=== PATIENT | male | born 1930 | race Caucasian/White ===

== ENCOUNTER 2017-07-19 23:22 | Emergency (ER) | payer OTHER ==
[~2017-07-19] VITALS: Ht 177.8 cm; Wt 87.3 kg
[~2017-07-19 23:22] MED LIST: ALLO100T PO; ASPI81TA82 PO; CAPT25TA2 PO; CHOL1CAP6 PO; COQ150CA PO; COUM5TAB PO; CYAN1000P IM; DIAZ2 PO; HYDR50TA5 PO; INSU1INJ5 SQ; IRON27TA PO; KONS520C PO; LORA10TA PO; LORTA5 PO; MAGN500T4 PO; MEVA40TA PO; PRIL40CA PO; PROBCAP4 PO; PROS5TAB2 PO; TOPR100T15 PO; VITA50TA3 PO
[2017-07-19 23:23] VITALS: BP 195/96; PULSE 90; RESP 16; TEMP 97.9; O2SAT 99
[2017-07-19 23:40] VITALS: BP 148/77; PULSE 83; RESP 16; O2SAT 98
--- NOTE | 2017-07-20 00:07 | PD ---
HPI Chief Complaint: Laceration/Skin Injury Time Seen by Provider: 23:43 Travel History International Travel<30 days: No Contact w/Intl Traveler<30days: No Traveled to known affect area: No History of Present Illness HPI The patient is an 87 year old male who presents to the [facility] emergency department with a history of hitting his head on the top of his head on the top of the door of his SUV when he was attempting to put packages in the back. He reports that this occurred on Friday at 4 PM, approximately 32 hours prior to arrival. The patient reports that he is on Coumadin. The patient also has a history of thrombocytopenia. The patient reports that he did clean the area and apply antibiotic ointment along with a bandage, however it continues to bleed through the bandages. The patient reports that he last had his INR checked 2 weeks ago. He reports that it was reportedly where his doctor wanted to be. He reports that he is on 4 mg of Coumadin daily. He reports that he is on Coumadin because of a history of atrial fibrillation. He denies having any loss of consciousness with the head injury. He denies having any neck pain, paresthesias, or weakness of his extremities. On review of systems otherwise, the patient denies having any known recent fevers, cough or congestion, chest pain, abdominal pain, vomiting, diarrhea, urinary symptoms, or neurologic symptoms. The patient reports that he does have chronic dyspnea on exertion related to a history of congestive heart failure and aortic stenosis that is reportedly severe and pending surgery in July of this year with a valve replacement. FOR[facility]LY [facility] Past Medical History Narrative Medical the patient's past medical history is significant for aortic valve stenosis, diabetes mellitus, acid reflux, history of hypertension, history of atrial fibrillation, congestive heart failure, history kidney stones, prior history of pneumonia, history of thrombocytopenia, history of prior myocardial infarction in 2011, history of skin cancer, history of a neuroendocrine tumor that is monitored by Dr. Simmons, history of thrombocytopenia with a platelet count that usually is around the 100. Hx Anticoagulant Therapy: Yes Anemia: Yes Cancer: No Cardiac Catheterization: Yes Cardiovascular Problems: Yes (CAD, [place]) High Cholesterol: Yes Coronary Artery Disease: Yes Diabetes: Yes Patient Takes Glucophage: No Diminished Hearing: No Endocrine: Yes Gastrointestinal Disorders: Yes (GERD) GERD: Yes Genitourinary: Yes (HX BPH) Hepatitis: No Hiatal Hernia: Yes Hypertension: Yes Immune Disorder: No Implanted Vascular Access Dvce: Yes Medical other: Yes (EDEMA ANKLES, ANEMIA) Musculoskeletal: No Neurologic: No Psychiatric: No Reproductive: No Respiratory: No Myocardial Infarction: Yes Thyroid Disease: No Influenza Vaccination: No Past Surgical History Narrative Surgical The patient's past surgical history is significant for cardiac catheterization with stent placement, cataract surgery, history of prostatectomy, skin cancer resection, cholecystectomy Abdominal Surgery: No Body Medical Devices: CARDIAC STENT Cardiac Surgery: No Coronary Stent: Yes (x1) Ear Surgery: No Endocrine Surgery: No Eye Surgery: Yes (CATARACTSWITH LENS) Genitourinary Surgery: Yes (PROSTATE SURGERY) Oral Surgery: Yes (TONSILLECTOMY) Prostatectomy: Yes Thoracic Surgery: No Tonsillectomy: Yes Other Surgery: Yes (NASAL POLYPS) Social History Alcohol Use: No Tobacco Use: No Substance Use: No Allergies-Medications (Allergen,Severity, Reaction): Coded Allergies: niacin (Unverified Allergy, Severe, ITCH, 07/19/17) sitagliptin (Unverified Adverse Reaction, Severe, STOMACH PAIN, 07/19/17) Reported Meds & Prescriptions Reported Meds & Active Scripts Active Reported Miralax Powder (Polyethylene Glycol 3350 Powder) 17 Gm Powd 17 Gm PO DAILY PRN Mix and dissolve one measuring cap-ful (17 grams) in water or juice. Niacin 100 Mg Tab Unknown Dose PO DAILY Januvia (Sitagliptin Phosphate) 25 Mg Tab Unknown Dose PO DAILY Claritin (Loratadine) 5 Mg Chew Unknown Dose CHEW DAILY Co Q 10 (Coenzyme Q10 (Ubidecarenone)) 100 Mg-5 Unit Cap 100 Mg PO DAILY Aspirin 81 Low Dose (Aspirin) 81 Mg Chew 81 Mg CHEW DAILY Vitamin B-12 (Cyanocobalamin) 1,000 Mcg Tab Unknown Dose PO TID Levemir Inj (Insulin Detemir) 1,000 unit/ 10 ML Vial 28 Units SQ DAILY Do not mix with any other Insulin. Potassium Chloride ER (Potassium Chloride) 20 Meq Tab 20 Meq PO DAILY Furosemide 40 Mg Tab 40 Mg PO DAILY Mag-Delay (Magnesium Chloride) 70 Mg Magnesium Tab 500 Mg PO BID Ferrous Gluconate 240 Mg (27 Mg Iron) Tab 240 Mg PO DAILY Captopril 25 Mg Tab 25 Mg PO DAILY Take 1 hr before meals. Toprol XL (Metoprolol Succinate) 50 Mg Tab 50 Mg PO DAILY Warfarin 4 Mg Tab 4 Mg PO DAILY Allopurinol 100 Mg Tab 100 Mg PO BID Review of Systems Except as stated in HPI: all other systems reviewed are Neg General / Constitutional: No: Fever Eyes: No: Visual changes HENT: No: Headaches, Neck Stiffness, Neck Pain Cardiovascular: No: Chest Pain or Discomfort Respiratory: No: Shortness of Breath Gastrointestinal: No: Abdominal Pain Genitourinary: No: Dysuria Musculoskeletal: No: Pain Skin: Positive Other (abrasion over the top of his head), No Rash Neurologic: Positive: Headache, No: Weakness, Focal Abnormalities, Change in Mentation, Slurred Speech, Sensory Disturbance Psychiatric: No: Depression Endocrine: No: Polydipsia Hematologic/Lymphatic: No: Easy Bruising Physical Exam Narrative General: The patient is a well-developed well-nourished male in no acute distress. Head and Neck exam: Head is normocephalic, with evidence of trauma to the top of the head. The patient has a bandage in place with some blood on the bandage. The patient has an abrasion over the top of the scalp. There is a small amount of oozing noted. Eyes: EOMI, pupils are equal round and reactive to light. Nose: Midline septum with pink mucous membranes Mouth: Dentition unremarkable. Moist mucus membranes. Posterior oropharynx is not erythematous. No tonsillar hypertrophy. Uvula midline. Airway patent. Neck: No palpable lymphadenopathy. No nuchal rigidity. No thyromegaly. No spinous process tenderness to palpation. No step-off or crepitus. No erythema or ecchymosis. Cardiovascular: Irregularly irregular with rate control consistent with his history of atrial fibrillation, 2/6 systolic murmur is audible consistent with his history of aortic stenosis. No gallops or rubs. No pulse deficit to the extremities. Lungs: Clear to auscultation bilaterally. No wheezes, rhonchi, or rales. Abdomen: Soft, without tenderness to palpation in all 4 quadrants of the abdomen. No guarding, rebound, or rigidity. Normal bowel sounds are audible. No tenderness on palpation of McBurney's point. Extremities: No clubbing or cyanosis. The patient has trace pedal edema bilateral lower extremities. No calf tenderness on palpation. 2+ pulses in all 4 extremities. Back: No spinous process tenderness to palpation. No costovertebral angle tenderness to palpation. Neurologic Exam: Grossly nonfocal. Skin Exam: No rash noted. Skin is warm and dry. Data Data Last Documented VS Vital Signs Date Time Temp Pulse Resp B/P (MAP) Pulse Ox O2 Delivery O2 Flow Rate FiO2 07/19/17 23:40 83 16 148/77 (100) 98 Room Air 07/19/17 23:23 97.9 Orders Orders Complete Blood Count With Diff (07/19/17 23:55) Basic Metabolic Panel (Bmp) (07/19/17 23:55) Prothrombin Time / Inr (Pt) (07/19/17 23:55) Act Partial Throm Time (Ptt) (07/19/17 23:55) Ct Brain W/O Iv Contrast(Rout) (07/19/17 23:55) Iv Access Insert/Monitor (07/19/17 23:55) Ecg Monitoring (07/19/17 23:55) Oximetry (07/19/17 23:55) Labs Laboratory Tests Test 07/19/17 23:59 White Blood Count 4.3 TH/MM3 Red Blood Count 3.73 MIL/MM3 Hemoglobin 11.3 GM/DL Hematocrit 34.4 % Mean Corpuscular Volume 92.1 FL Mean Corpuscular Hemoglobin 30.3 PG Mean Corpuscular Hemoglobin Concent 32.9 % Red Cell Distribution Width 15.9 % Platelet Count 95 TH/MM3 Mean Platelet Volume 10.0 FL Neutrophils (%) (Auto) 78.1 % Lymphocytes (%) (Auto) 8.5 % Monocytes (%) (Auto) 8.9 % Eosinophils (%) (Auto) 3.2 % Basophils (%) (Auto) 1.3 % Neutrophils # (Auto) 3.4 TH/MM3 Lymphocytes # (Auto) 0.4 TH/MM3 Monocytes # (Auto) 0.4 TH/MM3 Eosinophils # (Auto) 0.1 TH/MM3 Basophils # (Auto) 0.1 TH/MM3 CBC Comment AUTO DIFF Prothrombin Time 31.4 SEC Prothromb Time International Ratio 3.1 RATIO Activated Partial Thromboplast Time 42.3 SEC Blood Urea Nitrogen 28 MG/DL Creatinine 1.32 MG/DL Random Glucose 170 MG/DL Calcium Level 8.9 MG/DL Sodium Level 138 MEQ/L Potassium Level 3.3 MEQ/L Chloride Level 99 MEQ/L Carbon Dioxide Level 33.8 MEQ/L Anion Gap 5 MEQ/L Estimat Glomerular Filtration Rate 51 ML/MIN MDM Medical Decision Making Medical Screen Exam Complete: Yes Emergency Medical Condition: Yes Medical Record Reviewed: Yes Differential Diagnosis Intracranial trauma given his history of head injury while on Coumadin, versus supratherapeutic Coumadin level, versus thrombocytopenia Narrative Course During the course of the patients emergency department visit, the patients history, examination, and differential diagnosis were reviewed with the patient. The patient was placed on a cardiac/vascular sonographer with oximetry and frequent blood pressure monitoring. The patient had IV access obtained and blood work sent for analysis. A CT scan of the brain was ordered. The patient was initially provided wound care to his scalp wound. The patient' s wound was cleaned. Topical powder was applied to stop bleeding. The patient' s wound was repaired bandage. The bleeding was controlled. The patients laboratory studies were reviewed and remarkable for a white count of 4.3, hemoglobin 11.3, platelets 95, neutrophils 78.1, monocytes 8.9. CMP is remarkable for potassium of 3.3, CO2 33.8, BUN 28, creatinine 1.32, glucose 170 , PTT 31.4, INR 3.1, PTT 42.3. Radiology studies were reviewed and remarkable for a CT scan of the brain that shows no bleeding or other acute intracranial abnormality, however there is a complete heterogeneous opacification of the left maxillary air cell and extending into the nasal cavity of concern for a mass. The patient is given a copy of his labs and CT scan findings. The patient is instructed to keep his bandage in place for 24 hours and then gently removed. The patient is instructed regarding the importance of close follow-up with his guard driver and primary care physician. The patient is resting comfortably and feels better, is alert and in no distress. The patients results and examination findings were discussed with the patient. The repeat examination is unremarkable and benign. The history, exam, diagnostic testing, and current condition do not suggest any significant pathology to warrant further testing, continued ED treatment, admission, or surgical evaluation at this point. The vital signs have been stable. The patient does not have uncontrollable pain, intractable vomiting, or other significant symptoms. The patient's condition is stable and appropriate for discharge. The patient will pursue further outpatient evaluation with a primary care physician or other designated or consulting physician as indicated in the discharge instructions. The patient expressed understanding and was agreeable with this plan. Diagnosis Primary Impression: Scalp abrasion Qualified Codes: S00.01XA - Abrasion of scalp, initial encounter Additional Impression: Maxillary sinus mass Referrals: Oncologist Primary Care Physician 1 day Additional Instructions: The patient is given a copy of his CT scan of the brain results for follow-up with his primary care physician regarding the possible mass in his left maxillary sinus. The patient is also given a copy of his laboratory results to discuss with his primary care physician and guard driver regarding his platelet count of 95, INR of 3.1. Med/Other Pt SpecificInfo: No Change to Meds Disposition: 01 DISCHARGE HOME Condition: Stable Xin Calzada MD Jul 20, 2017 00:07
[2017-07-20 00:32] LABS: AUTOMATED NEUTROPHIL # 3.4 TH/MM3 (1.8-7.7); BASOPHIL # 0.1 TH/MM3 (0-0.2); BASOPHIL % 1.3 % (0.0-2.0); EOSINOPHIL # 0.1 TH/MM3 (0-0.4); EOSINOPHIL % 3.2 % (0.0-4.0); HEMATOCRIT 34.4 % (39.0-51.0); HEMOGLOBIN 11.3 GM/DL (13.0-17.0); LYMPH % 8.5 % (9.0-44.0); LYMPHOCYTE # 0.4 TH/MM3 (1.0-4.8); MEAN CELL VOLUME 92.1 FL (80.0-100.0); MEAN CORPUSCULAR HEMOGLOBIN 30.3 PG (27.0-34.0); MEAN CORPUSCULAR HGB CONC 32.9 % (32.0-36.0); MONO % 8.9 % (0.0-8.0); MONOCYTE # 0.4 TH/MM3 (0-0.9); NEUT % 78.1 % (16.0-70.0); PLATELET COUNT 95 TH/MM3 (150-450); RED BLOOD COUNT 3.73 MIL/MM3 (4.50-5.90); RED CELL DISTRIBUTION WIDTH 15.9 % (11.6-17.2); WHITE BLOOD COUNT 4.3 TH/MM3 (4.0-11.0)
--- NOTE | 2017-07-20 00:43 | RADRPT ---
EXAM DATE/TIME: 07/20/2017 00:22 [place] COMPARISON: No previous studies available for comparison. INDICATIONS : Trauma. Contusion with laceration top of head. RADIATION DOSE: 36.24 CTDIvol (mGy) MEDICAL HISTORY : Cardiovascular disease. Hypertension. Diabetes mellitus type 2.GERD SURGICAL HISTORY : Coronary artery stent. Prostatectomy. ENCOUNTER: Initial ACUITY: 1 day PAIN SCALE: 4/10 LOCATION: cranial TECHNIQUE: Multiple contiguous axial images were obtained of the head. Using automated exposure control and adj ustment of the mA and/or kV according to patient size, radiation dose was kept as low as reasonably a chievable to obtain optimal diagnostic quality images. DICOM format image data is available electro nically for review and comparison. FINDINGS: CEREBRUM: The ventricles are normal for age. No evidence of midline shift, mass lesion, hemorrhage or acute in farction. No extra-axial fluid collections are seen. POSTERIOR FOSSA: The cerebellum and brainstem are intact. The 4th ventricle is midline. The cerebellopontine angle i s unremarkable. EXTRACRANIAL: There is a mass like complete opacification of the left maxillary air cell extending through the medi al wall into the nasal cavity. Otherwise mild mucoperiosteal thickening and a few scattered mucus ret ention cysts are seen of the paranasal sinuses. SKULL: The calvaria is intact. No evidence of skull fracture. CONCLUSION: 1. No bleed or other acute intracranial abnormality. 2. There is complete heterogeneous opacification of the left maxillary air cell and extending into th e nasal cavity of concern for a mass. Pino Lin MD on July 20, 2017 at 0:39 Board Certified Radiologist. This report was verified electronically.
[2017-07-20 00:53] LABS: INTERNATIONAL NORMALIZED RATIO 3.1 RATIO; PROTHROMBIN TIME - PATIENT 31.4 SEC (9.8-11.6)
[2017-07-20] MEDS ORDERED: ALLO100T PO (00:59)
[2017-07-20] MEDS ORDERED: VITA10002 PO (00:59)
[2017-07-20] MEDS ORDERED: MAG-TAB PO (00:59)
[2017-07-20] MEDS ORDERED: WARF-20 PO (00:59)
[2017-07-20] MEDS ORDERED: SITA25 PO (00:59)
[2017-07-20] MEDS ORDERED: TOPR50TA PO (00:59)
[2017-07-20] MEDS ORDERED: MIRA3350 PO (00:59)
[2017-07-20] MEDS ORDERED: LORA1CHW2 CHEW (00:59)
[2017-07-20] MEDS ORDERED: LEVEMIR SQ (00:59)
[2017-07-20] MEDS ORDERED: FERR240T PO (00:59)
[2017-07-20] MEDS ORDERED: ASPI1CHW4 CHEW (00:59)
[2017-07-20] MEDS ORDERED: FURO40TA PO (00:59)
[2017-07-20] MEDS ORDERED: POTA-163 PO (00:59)
[2017-07-20] MEDS ORDERED: NIAC100T2 PO (00:59)
[2017-07-20] MEDS ORDERED: CO Q100C9 PO (00:59)
[2017-07-20] MEDS ORDERED: CAPT25TA2 PO (00:59)
[2017-07-20 01:06] LABS: BICARBONATE 33.8 MEQ/L (21.0-32.0); CALCIUM 8.9 MG/DL (8.5-10.1); CREATININE 1.32 MG/DL (0.60-1.30)
[2017-07-20 02:10] LABS: OVALOCYTES 1+ (NORMAL)
== END 2017-07-20 01:57 | disposition home or self-care (01) ==
LOC: NEPE 23:22
DX: S00.01XA Abrasion of scalp, initial encounter (principal); R22.0 Localized swelling, mass and lump, head; I48.91 Unspecified atrial fibrillation; E11.9 Type 2 diabetes mellitus without complications; E78.00 Pure hypercholesterolemia, unspecified; I25.10 Atherosclerotic heart disease of native coronary artery without angina pectoris; I11.0 Hypertensive heart disease with heart failure; I50.9 Heart failure, unspecified; Z79.01 Long term (current) use of 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; Z79.4 Long term (current) use of insulin; W22.8XXA Striking against or struck by other objects, initial encounter; Y93.89 Activity, other specified; Y92.818 Other transport vehicle as the place of occurrence of the external cause
CPT/HCPCS: 70450; 80048; 85025; 85610; 85730

== ENCOUNTER 2017-08-04 08:36 | Day surgery (SDC) | payer OTHER ==
[2017-08-04] VITALS (7 sets, daily range): BP systolic 131–164; BP diastolic 74–94; PULSE 78–94; RESP 16–20; TEMP 97.9–98.5; O2SAT 95–100
[~2017-08-04] VITALS: Ht 177.8 cm; Wt 85.6 kg
[~2017-08-04 08:36] MED LIST changes: +ASPI1CHW4 CHEW; -ASPI81TA82 PO; -CHOL1CAP6 PO; +CO Q100C9 PO; -COQ150CA PO; -COUM5TAB PO; -CYAN1000P IM; -DIAZ2 PO; +FERR240T PO; +FURO40TA PO; -HYDR50TA5 PO; -INSU1INJ5 SQ; -IRON27TA PO; -KONS520C PO; +LEVEMIR SQ; -LORA10TA PO; +LORA1CHW2 CHEW; -LORTA5 PO; +MAG-TAB PO; -MAGN500T4 PO; -MEVA40TA PO; +MIRA3350 PO; +NIAC100T2 PO; +POTA-163 PO; -PRIL40CA PO; -PROBCAP4 PO; -PROS5TAB2 PO; +SITA25 PO; -TOPR100T15 PO; +TOPR50TA PO; +VITA10002 PO; -VITA50TA3 PO; +WARF-20 PO
[2017-08-04] MEDS ORDERED: IOHEXOL 350 MG/ML 50 ML BTL (for Cath Lab) OTHER ONE (08:37)
[2017-08-04] MEDS ORDERED: IOHEXOL 350 MG/ML 100 ML BTL (for Cath Lab) OTHER ONE (08:37)
[2017-08-04] MEDS ORDERED: IOHEXOL 350 MG/ML 10 ML VIAL (for RAD DIAG) IVCONTRAST ONE (08:37)
[2017-08-04] MEDS ORDERED: diphenhydrAMINE HCL 50 MG CAP PO SCH (09:00)
[2017-08-04] MEDS: NS 1000P @30 MLS/HR (KVO) IV SCH (09:00)
[2017-08-04 09:38] LABS: AUTOMATED NEUTROPHIL # 3.9 TH/MM3 (1.8-7.7); BASOPHIL # 0.1 TH/MM3 (0-0.2); BASOPHIL % 1.4 % (0.0-2.0); EOSINOPHIL # 0.2 TH/MM3 (0-0.4); EOSINOPHIL % 3.2 % (0.0-4.0); HEMATOCRIT 36.3 % (39.0-51.0); HEMOGLOBIN 12.1 GM/DL (13.0-17.0); LYMPH % 7.7 % (9.0-44.0); LYMPHOCYTE # 0.4 TH/MM3 (1.0-4.8); MEAN CORPUSCULAR HEMOGLOBIN 30.7 PG (27.0-34.0); MEAN CORPUSCULAR HGB CONC 33.4 % (32.0-36.0); MEAN PLATELET VOLUME 10.7 FL (7.0-11.0); MONO % 10.4 % (0.0-8.0); MONOCYTE # 0.5 TH/MM3 (0-0.9); NEUT % 77.3 % (16.0-70.0); PLATELET COUNT 104 TH/MM3 (150-450); RED BLOOD COUNT 3.95 MIL/MM3 (4.50-5.90); RED CELL DISTRIBUTION WIDTH 16.6 % (11.6-17.2)
[2017-08-04] MEDS ORDERED: CHOL10008 PO (09:42)
[2017-08-04] MEDS ORDERED: FINA5TAB2 PO (09:42)
[2017-08-04] MEDS ORDERED: ATOR40TA16 PO (09:42)
[2017-08-04] MEDS ORDERED: vitamin b6 PO (09:43)
[2017-08-04 09:52] LABS: ALBUMIN 3.8 GM/DL (3.4-5.0); CALCIUM 9.1 MG/DL (8.5-10.1); CREATININE 1.24 MG/DL (0.60-1.30)
--- NOTE | 2017-08-04 10:19 | PD.FRAIL ---
Date: Aug 04, 2017 Height: 177.8 cm Weight: 86.7 kg BMI: 27.4 Assessment Performed: Outpatient Days in Hospital at Exam: 0 Albumin 08/04/17 09:04: Blood Urea Nitrogen 22, Creatinine 1.24, Random Glucose 95, Albumin 3.8, Calcium Level 9.1, Sodium Level 135, Potassium Level 3.0, Chloride Level 98, Carbon Dioxide Level 29.0 Pass/Fail: Pass [place] Activities Daily Living [place] ADL Score: Bathing(bathes self/help in single area): Mobile (1), Dressing(gets/puts clothes on self): Mobile (1), Toileting(goes without help): Mobile ( 1), Transferring(unassisted or [facility] aides): Mobile (1), Continence( complete self-control): Mobile (1), Feeding(self, prep by another allowed) : Mobile (1), Total: 6 Pass/Fail: Pass Senior Principal Strength Grasp 1: 32 Grasp 2: 38 Grasp 3: 36 Average: 35.3 (patient does not use walker or cane.) Pass/Fail: Pass 15-Foot Walk 15-Foot Walk (seconds): 13.4 Pass/Fail: Fail Total Frailty Total Frailty (out of 4): 1 Frailty Index Score Reference Senior Principal Strength: BMI: <=24 Cutoff for organic gardening teacher strength(Kg): <=29 BMI: 24.1-28 Cutoff for organic gardening teacher strength(Kg): <=30 BMI: >28 Cutoff for organic gardening teacher strength(Kg): <=32 15-Foot Walk: Height: <=173 cm 15-Foot Walk Cutoff Time: >=7 seconds Height: >173 cm 15-Foot Walk Cutoff Time: >=6 seconds Clarke Melendez RN Aug 04, 2017 10:18
[2017-08-04 10:44] LABS: BILIRUBIN, URINE NEG (NEG); BLOOD, URINE NEG (NEG); GLUCOSE,URINE NEG (NEG); KETONE, URINE NEG (NEG); NITRITE,URINE NEG (NEG); PH, URINE 5.5 (5.0-8.5); SQUAMOUS EPITHELIAL CELL URINE <1 /hpf (0-5); URINE COLOR YELLOW (YELLW/STRAW); URINE LEUKOCYTE ESTERASE TRACE (NEG); WHITE BLOOD CELL CLUMPS RARE
[2017-08-04 10:46] LABS: INTERNATIONAL NORMALIZED RATIO 2.5 RATIO; PROTHROMBIN TIME - PATIENT 25.7 SEC (9.8-11.6)
[2017-08-04] MEDS ORDERED: VERAPAMIL HCL 5 MG/2 ML VIAL ONE (12:32)
[2017-08-04] MEDS ORDERED: HEPARIN-NS/PF INJ 1,000 ML ONE (12:32)
[2017-08-04] MEDS ORDERED: HEPARIN SODIUM - IV 10,000 UNITS/10 ML VIAL ONE (12:33)
[2017-08-04] MEDS ORDERED: NITROGLYCERIN INJ 5 ML ONE (12:33)
[2017-08-04] MEDS ORDERED: MIDAZOLAM HCL 2 MG/2 ML VIAL ONE (12:51)
--- NOTE | 2017-08-04 13:04 | ECHRPT ---
Indication: PRE TAVR, S/P ENDOCARDITIS CONCLUSIONS Normal left ventricular size. Mild concentric left ventricular hypertrophy. The left ventricular systolic function is low normal with an estimated ejection fraction in the rang e of 50- 55%. The left atrial size is moderately dilated. Mild mitral valve regurgitation. Severe aortic valve stenosis. There is mild tricuspid valve regurgitation. The estimated pulmonary arterial pressure is 48 mmHg. BP: 164 / 94 HR: 94 Rhythm: Atrial fibrillation, Atrial flut ter MEASUREMENTS (Male / Female) Normal Values Technical Quality:Fair 2D ECHO LV Diastolic Diameter PLAX 4.9 cm 4.2 - 5.9 / 3.9 - 5.3 cm LV Systolic Diameter PLAX 3.8 cm IVS Diastolic Thickness 1.1 cm 0.6 - 1.0 / 0.6 - 0.9 cm LVPW Diastolic Thickness 1.1 cm 0.6 - 1.0 / 0.6 - 0.9 cm LV Relative Wall Thickness 0.5 RV Internal Dim ED PLAX 2.8 cm LVOT Diameter 1.9 cm Aortic Root Diameter 2.5 cm LA Systolic Diameter LX 4.2 cm 3.0 - 4.0 / 2.7 - 3.8 cm DOPPLER AV Peak Velocity 405.8 cm/s AV Peak Gradient 65.9 mmHg AV Mean Gradient 38.7 mmHg AV Velocity Time Integral 98.1 cm LVOT Peak Velocity 57.4 cm/s LVOT Peak Gradient 1.3 mmHg LVOT Velocity Time Integral 12.5 cm AV Area Cont Eq vti 0.4 cm AV Area Cont Eq pk 0.4 cm Mitral E Point Velocity 106.0 cm/s TR Peak Velocity 307.0 cm/s TR Peak Gradient 38.0 mmHg Right Atrial Pressure 10.0 mmHg Pulmonary Artery Systolic Pressu 47.7 mmHg Right Ventricular Systolic Press 47.7 mmHg FINDINGS LEFT VENTRICLE Normal left ventricular size. Mild concentric left ventricular hypertrophy. The left ventricular systolic function is low normal with an estimated ejection fraction in the rang e of 50- 55%. RIGHT VENTRICLE Normal right ventricular size and systolic function. LEFT ATRIUM The left atrial size is moderately dilated. RIGHT ATRIUM The right atrial size is normal. MITRAL VALVE Mild mitral valve regurgitation. AORTIC VALVE Moderate aortic valve stenosis. Aortic valve sclerosis is present. TRICUSPID VALVE There is mild tricuspid valve regurgitation. The estimated pulmonary arterial pressure is 48 mmHg. Artie Garcia MD (Electronically Signed) Final Date:04 August 2017 13:03
--- NOTE | 2017-08-04 14:03 | CATHPROC ---
[employer] HIS Report Study Information Study Number Admission Scheduled Start Study Start [id number] Aug 04 2017 8:36AM 08/04/2017 Aug 04 2017 12:33PM [place] [facility] Cardiac Catheterization Admit Source Facility Department Other [facility] - Synchronizer Physician and Clinical Staff Initial MD Garcia, Artie Operations Manager/Coordinator Valerie Pal,RN Recorder Shannon Cordova ,RT(R) Recorder Mercy Salgado,RT(R) Scrub Luke Muller RCIS(BS) Procedures Performed Procedure Location (Site) Vessel Name Coronary Angiograms LCA Left Coronary Coronary Angiograms RCA Right Coronary L Heart Cath PTCA CIRC Mid CIRC Wire insertion Radial (left) Radial Art. Equipment Time Tong Carrier Description Size Mfg Part Number Used/Scraped COPILOT VALVE, BLEEDBACK [id number] 13:18 [employer] Used CONTROL *[id number] TRANSDUCER, TRUWAVE [id number] 13:11 MCCONNELL GARCIA * Used W/STOCKCOCK *[id number] BALLOON, 1.2 X 12 SOLUTION SPECIALIST 13:35 [employer] 1.2 X 12 [id number] Used (OTW) [id number] 13:31 [employer] BALLOON, 2.0 12MM EMERGE MR 2.0 12MM Used *[id number] 13:29 [employer] BALLOON, 2.5 12MM EMERGE MR 2.5 12MM Used *[id number] 13:38 [employer] WIRE, SAMURAI 190CM 190CM Used *[id number] 13:16 [employer] WIRE, SAMURAI 190CM 190CM Used *[id number] *[id number] 13:11 [employer] PACK, CCL CUSTOM * Used *[id number] 13:11 [employer] SUPPORT, ARTERIAL ADULT 31834 *[id number] Used [id number] 13:14 MEDTRONIC JL 4.0 DXTERITY CATHETER FR 5 Used *[id number] 13:19 [employer] STENT, 2.5 14 INTEGRITY 2.5 14 Used *[id number] 13:17 [employer]/AVE EBU 3.5 Z2 GUIDE CATHETER FR 6 Used *[id number] 13:36 [employer] MEDICAL 30 MIAH INDEFLATOR Used *[id number] BAND, RADIAL COMPRESSION TR [id number] 13:47 [employer] MEDICAL 29CM Used LARGE 29 *[id number] 13:11 [employer] MEDICAL WIRE, 3MMJ .035 180CM 180CM Used *[id number] 13:11 NAMIC MANIFOLD, 4 PORT * Used *[id number] 13:11 [employer] OMNIPAQUE, 350 MG, 150ML 150ML [id number] Used 13:37 [employer]ED OMNIPAQUE, 350 MG, 150ML 150ML [id number] Used 13:37 [employer]ED OMNIPAQUE, 350 MG, 150ML 150ML [id number] Used [id number] 13:11 [facility] BLANKET,WARM AIR CCL * Used *[id number] SHEATH, FR6 TRANSRADIAL RM*[id number] 13:11 [employer] FR 6 Used SLENDER 10CM *[id number] Equipment Model, Serial, Lot Number and Expiration Data Description Model Number Serial Number Lot Number Expiration Date BALLOON, 2.0 12MM EMERGE MR [id number] 12-22-2019 JL 4.0 DXTERITY CATHETER [id number] 02-20-2020 STENT, 2.5 14 INTEGRITY [id number] 01-14-2019 WIRE, SAMURAI 190CM [id number] 04-15-2020 WIRE, SAMURAI 190CM [id number] 08-05-2019 History: Current Medications Medication Dosage/Unit Route Frequency Last Date/Time Taken Coumadin ASA Statins (any) Beta Oren Allopurinol LASIX History: Allergies Allergy Reaction Januvia STOMACH PAIN niacin ITCH sitagliptin STOMACH PAIN History: Risk Factors Family History of Hypertension Dyslipidemia Previous [place] Previous Heart Failure Premature CAD Yes Yes No Yes Yes Prior Valve Prior PCI Prior PCIDate Prior CABG Surgery No Yes 07/21/2003 No Cerebrovascular Peripheral Artery Chronic Lung On Dialysis Diabetes Diabetes Therapy Disease Disease Disease No No No No Yes Insulin History: Arrhythmias Selection Items Atrial fibrillation History: Other Disease Selection Items CAD CHF HTN History: Other Current Smoker Method Quit Packs a Day Years Used Pack Years Yes Cigarettes 54 Years Ago 1 15 15 Labs Hgb (g/dl) Hct (%) WBC (l/cumm) Platelets (thousands) 11.60-17.00 35.00-51.00 4.00-11.00 150.00-450.00 12.1 36.3 5 104 Glucose (mg/dl) BUN (mg/dl) Creatinine (mg/dl) BUN:Creatinine (1:x) 74.00-106.00 7.00-18.00 0.50-1.30 10.00-20.00 95 22 1.2 18.3 Na (meq/l) K (meq/l) 136.00-145.00 3.50-5.10 135 3 INR (PTT:PT) 0.90-1.10 2.5 CPK-MB (ng/ML) 0.50-3.60 Not Drawn Medication Medication Total Dose (Bolus/Oral) Medication Total Dosage/Unit 1% XYLOCAINE 20 mL FENTANYL 50 mcg HEPARIN 5000 units RADIAL COCKTAIL 5 mL (Bolus) VERSED 2 mg Medications (Bolus/Oral) Medication Time Given Dosage/Unit Administered By Reason 1% XYLOCAINE 08/04/2017 1:09:07 PM 20 mL Artie Garcia 20 mL 1% XYLOCAINE given in lab by Artie Garcia in Left Radial via Subcutaneous. VERSED 08/04/2017 1:10:24 PM 2 mg Valerie Pal 2 mg VERSED given in lab by Valerie Pal, KATARINA in Left Antecubital via Peripheral IV. Ordered by Artie Sidhu. Ntg 200mcg Verapamil 2.5mg Heparin RADIAL COCKTAIL 08/04/2017 1:11:08 PM 5 mL (Bolus) Artie Gracia 2500U 5 mL (Bolus) RADIAL COCKTAIL given in lab by Artie Garcia in Left Radial via Radial. Using [Solu tion Name]. Ordered by Artie Garcia. Reason: Ntg 200mcg Verapamil 2.5mg Heparin 2500U. FENTANYL 08/04/2017 1:11:13 PM 50 mcg Valerie Pal 50 mcg FENTANYL given in lab by Valerie Pal, RN in Left Antecubital via Peripheral IV. Ordered by Artie Garcia. HEPARIN 08/04/2017 1:18:00 PM 5000 units Valerie aPl 5000 units HEPARIN given in lab by Valerie Pal, RN in Left Antecubital via Peripheral IV. Ordered by Artie Garcia. Medication (Drip) Medication Time Given Dosage/Unit Concentration/Unit Diluent (ml) Solution IV Solutions 08/04/2017 12:47:23 PM 50 mL (IV) NaCl .9 IV Solutions given in lab by Valerie Pal, RN in Left Antecubital via Peripheral IV. Pump/Drip Moses w using NaCl .9. Initial Case Assessment Cardiovascular HR Rhythm NIBP Chest Pain 88 SR 169/100 0 Edema Present Skin color Skin Mild Normal Warm Dry Circulatory - Right Pulses Dorsalis Pedis Femoral 1 2 Scale (0,1,2,3,4,d) Circulatory - Left Pulses Dorsalis Pedis Femoral 1 2 Scale (0,1,2,3,4,d) Neurological State Oriented to time-place- Alert Moves all extremities person Respiration - General Respiration Rate SpO2 (%) (B/min) 20 96 Chronological Log Time Study Chronological Log 12:38:00 Patient arrived via Bed. 12:41:48 Skin Breakdown- bruise on left anterior wrist 12:41:50 [facility] Prom[employer] Protected Vitals capture started with the following parameters, Patient=Adult, Interval=5 min, Initial Pr dkyajd=669 mmHg, 12:42:27 Deflation Rate=5 mmHg, Cuff placed on Left Arm 12:43:33 HR=93 bpm, TECB=968/105 mmhg, SpO2=99.0 %, Resp=22 B/min 12:46:37 Patient Name, D.O.B, / Armband Verified By R.N. 12:46:39 Consent signed by the physician and the patient and verified by the Synchronizer staff. 12:46:40 Pre-op and post- op instructions given; patient acknowledges understanding of instructions. 12:46:42 Verbal Stimulation=2 Physical Stimulation=2 Airway=2 Respiration=2 TOTAL=8. (0=absent, 1=li mited, 2=present) 12:46:48 Allens test performed on the left radial and ulnar artery. 12:46:53 Patient has been NPO for More than 6Hrs. 12:46:57 Patient Warmer Placed on the Table. 12:47:07 A # 20 IV was noted in the Antecubital (left). Grade = 0 12:47:23 IV Solutions given in lab by Valerie Pal, RN in Left Antecubital via Peripheral IV. Pum p/Drip Flow using NaCl .9. 12:47:44 History and physical on the chart or being dictated. Assessment: Initial Case, HR=88 BPM, Rhythm=SR, KRIM=565/100 mmhg, Chest Pain=0, Edema=Mild, Co carlos=Normal, Skin = Warm, Dry Right Pulses: Silvio Ped=1, Femoral=2 12:47:45 Left Pulses: Silvio Ped=1, Femoral=2, Radial=2 Neurological: State=Alert, Ox3, MORALES Respiration: Resp=20 B/min, SpO2=96 % 12:47:51 Left Radial and groin(s) prepped with 2% chlorhexidine, and draped after a 3 min. waiting t ivan. 12:48:10 HR=84 bpm, GGKM=971/100 mmhg, SpO2=96.0 %, Resp=22 B/min 12:51:00 MD paged 12:51:46 MD responded 12:53:09 HR=82 bpm, PEJM=133/96 mmhg, SpO2=98.0 %, Resp=20 B/min 12:54:14 Pressure channel 1 zeroed. 12:54:41 Reference ECG taken 12:58:06 HR=90 bpm, OJYN=030/97 mmhg, SpO2=97.0 %, Resp=21 B/min 13:03:07 HR=86 bpm, AOOP=964/91 mmhg, SpO2=99.0 %, Resp=15 B/min 13:06:03 MD arrived. 13:08:04 HR=84 bpm, MGGT=998/95 mmhg, SpO2=99.0 %, Resp=17 B/min Time Out. Correct patient, correct procedure, correct physician, power injector not loaded with contrast with surgical 13:08:46 team present. Time Out Concurred by MD and individual staff in procedure. 13:09:03 Case Start 13:09:07 20 mL 1% XYLOCAINE given in lab by Artie Garcia in Left Radial via Subcutaneous. 13:10:01 Access site was Left Radial Artery. A SHEATH, FR6 TRANSRADIAL SLENDER 10CM FR 6 was advanced into the Radial (left) using the Shen hameed 13:10:20 technique. 13:10:24 2 mg VERSED given in lab by Valerie Pal, RN in Left Antecubital via Peripheral IV. Orde red by Artie Garcia. 5 mL (Bolus) RADIAL COCKTAIL given in lab by Artie Garcia in Left Radial via Radial. Using [Solution Name]. 13:11:08 Ordered by Artie Garcia. Reason: Ntg 200mcg Verapamil 2.5mg Heparin 2500U. 50 mcg FENTANYL given in lab by Valerie Pal, RN in Left Antecubital via Peripheral IV. Orde red by Jose, 13:11:13 Artie. A JR 4.0 INFINITI CATHETER FR 5 was advanced over a wire. OMNIPAQUE, 350 MG, 150ML 150ML was us ed for 13:11:33 injections. 13:12:39 The RCA was injected and visualized at various angles. OMNIPAQUE, 350 MG, 150ML 150ML used . Recorded Pressure: Ao, HR=80, Condition=Condition 1 13:12:52 (Aorta) Ao 108/62/83 13:13:11 HR=77 bpm, DZQU=935/70 mmhg, SpO2=98.0 %, Resp=17 B/min 13:13:15 Catheter was removed A JL 4.0 DXTERITY CATHETER FR 5 was advanced over a wire. OMNIPAQUE, 350 MG, 150ML 150ML was us ed for 13:13:56 injections. 13:14:53 The LCA was injected and visualized at various angles. OMNIPAQUE, 350 MG, 150ML 150ML used . 5000 units HEPARIN given in lab by Valerie Pal, KATARINA in Left Antecubital via Peripheral IV. O rdered by Jose, 13:18:00 Artie. 13:18:06 HR=71 bpm, JGLA=818/74 mmhg, SpO2=96.0 %, Resp=19 B/min 13:18:06 Catheter was removed A EBU 3.5 Z2 GUIDE CATHETER FR 6 was advanced over a wire. OMNIPAQUE, 350 MG, 150ML 150ML was u sed for 13:18:32 injections. 13:21:21 A WIRE, 3MMJ .035 180CM 180CM was inserted via Radial (left). 13:21:56 Wire removed 13:23:03 HR=70 bpm, OAAW=392/72 mmhg, SpO2=97.0 %, Resp=21 B/min 13:23:18 A WIRE, SAMURAI 190CM 190CM was inserted via Radial (left). 13:26:30 Interventional wire has crossed the lesion An STENT, 2.5 14 INTEGRITY 2.5 14 Bare Metal Stent was inserted through a EBU 3.5 Z2 GUIDE CATH ETER FR 6 over 13:27:12 a WIRE, SAMURAI 190CM 190CM. 13:28:10 Stent not deployed. Stent removed and intact. 13:28:37 HR=75 bpm, OVQA=558/86 mmhg, SpO2=98.0 %, Resp=20 B/min 13:28:52 A BALLOON, 2.5 12MM EMERGE MR 2.5 12MM was inserted over WIRE, SAMURAI 190CM 190CM via the Radial (left). 13:30:16 Balloon Removed. No inflation 13:30:51 A BALLOON, 2.0 12MM EMERGE MR 2.0 12MM was inserted over WIRE, SAMURAI 190CM 190CM via the Radial (left). 13:33:05 HR=72 bpm, OGIE=812/89 mmhg, SpO2=99.0 %, Resp=22 B/min 13:33:11 Balloon Removed. No inflation A BALLOON, 1.2 X 12 SOLUTION SPECIALIST (OTW) 1.2 X 12 was inserted over WIRE, SAMURAI 190CM 190CM via the Radial 13:34:48 (left). A BALLOON, 1.2 X 12 SOLUTION SPECIALIST (OTW) 1.2 X 12 over a WIRE, SAMURAI 190CM 190CM in the CIRC Mid wa s inflated 13:35:34 using a 30 MIAH INDEFLATOR at 6 miah for 10 sec. 13:37:18 Balloon Removed. 13:38:08 HR=75 bpm, JOBF=603/82 mmhg, SpO2=99.0 %, Resp=22 B/min 13:38:20 A WIRE, SAMURAI 190CM 190CM was inserted via Radial (left). A BALLOON, 1.2 X 12 SOLUTION SPECIALIST (OTW) 1.2 X 12 was inserted over WIRE, SAMURAI 190CM 190CM via the Radial 13:41:08 (left). 13:42:55 Balloon Removed. No inflation. 13:43:05 HR=76 bpm, PZHP=187/96 mmhg, SpO2=97.0 %, Resp=23 B/min 13:44:47 Wire removed 13:45:39 Wire removed 13:46:08 Catheter was removed 13:46:15 Case End 13:48:10 HR=75 bpm, IJIT=612/81 mmhg, SpO2=98.0 %, Resp=23 B/min Radial Compression Device Used. ~VOLUME ML~ mLs of air placed in BAND, RADIAL COMPRESSION TR LA RGE 29 13:49:07 29CM. Affected hand ~O2 SATURATION~ % O2 saturation. 13:50:51 No case complications noted. 13:50:54 Bedside Report will be given. 13:51:02 A Left Heart Cath was performed. 13:55:00 Patient moved to stretcher End Study - Contrast Media Used In Study Contrast Total Opened (mL) Total Used (mL) Total Wasted (mL) Omnipaque 125 125 0 End Study - Maximum Contrast Load Max Contrast Load (mL) 361.2 End Study - Radiation Exposure Fluoro Time (minutes) 14.1 End Study - Patient Disposition Complications Transferred To Interventional Outcome No Telemetry Bed unsuccessful
--- NOTE | 2017-08-04 14:23 | MA ---
cc: DERICIVETT Estrada DATE 08/04/2017 DATE OF 1930 PROCEDURE PERFORMED 1. Left heart catheterization. 2. Selective right and left coronary angiography. INDICATION Severe symptomatic aortic stenosis, preoperative work-up. APPROACH Left transradial PROCEDURE DESCRIPTION Consent signed. The patient was brought into the cardiac medical lab director in a fasting state. The left wrist was prepped and draped in sterile fashion. Using 1% lidocaine for local anesthesia and a micropuncture kit a 6 Kitt[place] sheath was inserted into the left radial artery. Antispasmodic cocktail was given then selective right and left coronary angiography was performed with a JR4 and a JL4 diagnostic catheter. Angiography was taken in multiple views. I did identify a significant obstruction in the left circumflex artery. This obstruction is 99%, seems calcified and feeding off a small obtuse marginal vessel which is amenable to intervention for which we proceeded to fix. For this heparin was given for IV anticoagulation. The vessel was wired with a Odilo wire which was anchored distally. After multiple attempts to cross the lesion with a balloon we were not able. We went down to a 1.25 balloon without success of crossing the lesion. We also used a arya wire technique and it was not possible. This was due to significant calcification in the area. However, again this segment of the artery was feeding small OM branches for which the risk of dissection interruption of the artery are high for which the procedure was stopped. The patient tolerated the procedure well without complications. Estimated blood loss less than 10 cc. Total contrast 125 cc. The right wrist access site was closed with a TR band. RESULTS ANGIOGRAPHY 1. The right coronary artery is a dominant vessel giving off the PDA. This artery is of a significant size and has minimal luminal irregularities throughout and calcification. There is a 10% lesion on the midsegment. There is a stent also in the midsegment which is patent. The PDA and the posterolateral branches are also patent. 2. The left main is calcified. It is giving off the LAD and the left circumflex artery. It has no significant obstructive CAD. 3. The LAD is a transapical vessel. It has minimal luminal irregularities and calcifications throughout. Distally there is a 50% lesion. The LAD is giving a diagonal artery which is patent and diffusely diseased. 4. The left circumflex artery is diffusely calcified. It has a mid 95-99% eccentric calcified plaque after the first OM artery. There is SUSAN-III flow in this segment. CONCLUSIONS 1. Severe symptomatic aortic stenosis. 2. One-vessel coronary artery disease not amenable to intervention given the small size vessel. RECOMMENDATIONS Continue the operative work-up for aortic valve replacement and aggressive medical management for secondary prevention of coronary artery disease. MD TEAGAN Garrido/JAELYN /1:48 PM /2:05 PM RONNELL
[2017-08-04] MEDS ORDERED: FUROSEMIDE 40 MG/4 ML VIAL ONE (14:45)
--- NOTE | 2017-08-04 14:46 | RADRPT ---
EXAM DATE/TIME: 08/04/2017 14:31 [place] COMPARISON: No previous studies available for comparison. INDICATIONS : Pre TAVR evaluation. MEDICAL HISTORY : Cardiovascular disease. Hypertension. Diabetes mellitus type 2.GERD SURGICAL HISTORY : Coronary artery stent. Prostatectomy. ENCOUNTER: Initial ACUITY: 1 day PAIN SCORE: 0/10 LOCATION: Bilateral chest FINDINGS: A single view of the chest demonstrates the lungs to be symmetrically aerated without evidence of mas s, infiltrate or effusion. The cardiomediastinal contours are unremarkable with calcification athero sclerotic in the aortic knob.. Osseous structures are intact. CONCLUSION: No acute disease. Geronimo Salgado MD on August 04, 2017 at 14:43 Board Certified Radiologist. This report was verified electronically.
[2017-08-04] MEDS ORDERED: FUROSEMIDE 40 MG/4 ML VIAL IV PUSH ONE (15:00)
[2017-08-04] MEDS ORDERED: NITROGLYCERIN 2% OINT 1 GM PACKET TOPICAL ONE (15:00)
[2017-08-04] MEDS ORDERED: POTASSIUM CHLORIDE 20 MEQ CONTROLLED RELEASE TAB PO ONE (15:00)
[2017-08-04] MEDS ORDERED: WARFARIN SOD 4 MG TAB PO SCH (16:00)
[2017-08-04] MEDS ORDERED: POLYETHYLENE GLYCOL 17 GM PKG PO PRN (16:30)
[2017-08-04] MEDS ORDERED: POTASSIUM CHLOR 20 MEQ PREMIX 100 ML IV SCH (17:00)
[2017-08-04] MEDS ORDERED: ATORVASTATIN 40 MG TAB PO SCH (21:00)
[2017-08-04] MEDS ORDERED: INSULIN DETEMIR 100 UNITS/ML VIAL SQ SCH (21:00)
[2017-08-04] MEDS: FUROSEMIDE 40 MG/4 ML VIAL IV PUSH SCH (22:51)
[2017-08-04] MEDS: ALLOPURINOL 100 MG TAB PO SCH (22:52)
[2017-08-04] MEDS: MAGNESIUM CHLORIDE 64 MG TAB PO SCH (22:52)
[2017-08-05] VITALS (13 sets, daily range): BP systolic 126–137; BP diastolic 73–83; PULSE 62–85; RESP 16–19; TEMP 97.5–98.5; O2SAT 96–98
--- NOTE | 2017-08-05 08:16 | PD.CAR.PN ---
CVT Progress Note Subjective/Hospital Course: RISK SCORES About the STS Risk Calculator Procedure: AV Replacement Risk of Mortality: 6.236% Morbidity or Mortality: 28.995% Long Length of Stay: 17.053% Short Length of Stay: 15.507% Permanent Stroke: 1.891% Prolonged Ventilation: 18.292% DSW Infection: 0.482% Renal Failure: 12.241% Reoperation: 11.179% Objective: Vital Signs Date Time Temp Pulse Resp B/P (MAP) Pulse Ox O2 Delivery O2 Flow Rate FiO2 08/05/17 07:00 78 08/05/17 05:00 85 08/05/17 04:00 98.5 75 16 137/76 (96) 96 08/05/17 04:00 75 08/05/17 03:00 81 08/05/17 02:00 72 08/05/17 01:00 81 08/05/17 00:00 78 08/05/17 00:00 98.4 82 16 135/83 (100) 97 08/04/17 23:00 80 08/04/17 22:00 78 08/04/17 21:00 82 08/04/17 20:00 98.3 80 16 131/83 (99) 99 08/04/17 20:00 80 08/04/17 19:33 98.5 80 20 150/74 (99) 95 08/04/17 19:00 82 08/04/17 14:02 92 Nasal Cannula 2.00 08/04/17 09:17 97.9 94 18 164/94 (117) 100 Result Diagram: 08/04/1704 08/04/17 0904 Valorie Christianson Aug 05, 2017 08:16
[2017-08-05] MEDS: ALLOPURINOL 100 MG TAB PO SCH (08:45)
[2017-08-05] MEDS: MAGNESIUM CHLORIDE 64 MG TAB PO SCH (08:46)
[2017-08-05] MEDS: FUROSEMIDE 40 MG/4 ML VIAL IV PUSH SCH (08:47)
[2017-08-05] MEDS: NS 1000P @30 MLS/HR (KVO) IV SCH (08:52)
[2017-08-05] MEDS ORDERED: FERROUS SULFATE 325 MG (65 MG ELEMENTAL IRON) TAB PO SCH (09:00)
[2017-08-05] MEDS ORDERED: METOPROLOL SUCCINATE 50 MG EXTENDED RELEASE TAB PO SCH (09:00)
[2017-08-05] MEDS ORDERED: FINASTERIDE 5 MG TAB PO SCH (09:00)
[2017-08-05] MEDS ORDERED: CAPTOPRIL 25 MG TAB PO SCH (09:00)
[2017-08-05] MEDS ORDERED: ASPIRIN 81 MG CHEW TAB PO SCH (09:00)
[2017-08-05] MEDS ORDERED: LORATADINE 10 MG TAB PO SCH (09:00)
[2017-08-05] MEDS ORDERED: POTASSIUM CHLORIDE 20 MEQ CONTROLLED RELEASE TAB PO SCH (09:00)
--- NOTE | 2017-08-05 09:15 | PD.CARD.PN ---
Subjective Subjective Remarks no cv complaints Objective Medications Current Medications Medications (Trade) Dose Ordered Sig/Nella Route Start Time Stop Time Status Last Admin Sodium Chloride 1,000 ml @ 30 mls/hr Q24H IV 08/04/17 09:00 (Benadryl) 50 mg PINION AND WHEEL TRUER PO 08/04/17 09:00 08/07/17 08:59 (Lasix Inj) 40 mg BID IV PUSH 08/04/17 21:00 08/05/17 08:47 (Zyloprim) 100 mg BID PO 08/04/17 21:00 08/05/17 08:45 (Coumadin) 4 mg DAILY@1600 PO 08/04/17 16:00 (Toprol Xl) 50 mg DAILY PO 08/05/17 09:00 08/05/17 08:46 (Capoten) 25 mg DAILY PO 08/05/17 09:00 08/05/17 08:48 (Ferrous Sulfate) 325 mg DAILY PO 08/05/17 09:00 08/05/17 08:45 (Slow-Mag Dr) 64 mg BID PO 08/04/17 21:00 08/05/17 08:46 (KCl) 20 meq DAILY PO 08/05/17 09:00 08/05/17 08:46 (Levemir Inj) 28 units HS SQ 08/04/17 21:00 08/04/17 21:00 (Aspirin Chew) 81 mg DAILY PO 08/05/17 09:00 08/05/17 08:46 (Claritin) 10 mg DAILY PO 08/05/17 09:00 08/05/17 08:45 (Miralax) 17 gm DAILY PRN PO 08/04/17 16:30 (Lipitor) 40 mg HS PO 08/04/17 21:00 08/04/17 22:52 (Proscar) 5 mg DAILY PO 08/05/17 09:00 08/05/17 08:46 Vital Signs / I&O Vital Signs Date Time Temp Pulse Resp B/P (MAP) Pulse Ox O2 Delivery O2 Flow Rate FiO2 08/05/17 07:00 78 08/05/17 07:00 98.2 74 19 128/73 (91) 97 08/05/17 05:00 85 08/05/17 04:00 98.5 75 16 137/76 (96) 96 08/05/17 04:00 75 08/05/17 03:00 81 08/05/17 02:00 72 08/05/17 01:00 81 08/05/17 00:00 78 08/05/17 00:00 98.4 82 16 135/83 (100) 97 08/04/17 23:00 80 08/04/17 22:00 78 08/04/17 21:00 82 08/04/17 20:00 98.3 80 16 131/83 (99) 99 08/04/17 20:00 80 08/04/17 19:33 98.5 80 20 150/74 (99) 95 08/04/17 19:00 82 08/04/17 14:02 92 Nasal Cannula 2.00 08/04/17 09:17 97.9 94 18 164/94 (117) 100 I/O 08/04/17 08/04/17 08/04/17 08/05/17 08/05/17 08/05/17 07:00 15:00 23:00 07:00 15:00 23:00 Intake Total 240 ml Output Total 2175 ml Balance -1935 ml Intake Oral 240 ml Output Urine Total 2175 ml # Bowel Movements 0 Physical Exam GENERAL: Well-nourished, well-developed patient. SKIN: Warm and dry. HEAD: Normocephalic. EYES: No scleral icterus. No injection or drainage. NECK: Supple, trachea midline. No JVD or lymphadenopathy. CARDIOVASCULAR: Regular rate and rhythm 3/6 ARJUN no gallops, or rubs. RESPIRATORY: Breath sounds equal bilaterally. No accessory muscle use. GASTROINTESTINAL: Abdomen soft, non-tender, nondistended. EXTREMITIES: No cyanosis, or edema. NEUROLOGICAL: Awake, alert, and oriented x 3. Non-focal. Laboratory Laboratory Tests Test 08/04/17 09:30 Urine Color YELLOW Urine Turbidity CLEAR Urine pH 5.5 Urine Specific [place] 1.019 Urine Protein TRACE mg/dL Urine Glucose (UA) NEG mg/dL Urine Ketones NEG mg/dL Urine Occult Blood NEG Urine Nitrite NEG Urine Bilirubin NEG Urine Urobilinogen LESS THAN 2.0 MG/DL Urine Leukocyte Esterase TRACE Urine RBC 1 /hpf Urine WBC 2 /hpf Urine WBC Clumps RARE Urine Squamous Epithelial Cells <1 /hpf Microscopic Urinalysis Comment CATH-CULTURE IND Assessment and Plan Problem List: (1) Aortic stenosis, severe ICD Codes: I35.0 - Nonrheumatic aortic (valve) stenosis Plan: Severe , STS 6% CAD, small vessel CAD Acute on chronic diastolic heart failure exacerbation Doing better, No CP, SOB, good diuresis overnight Recommendations: 1. Cont TAVR work up. TAVR CTA today and CT Surgery Dr. Verdin today. 2. Cont home medications 3. Strict I&O He can be d/c home today after CTA and Dr. Verdin consult (2) Atrial fibrillation ICD Codes: I48.91 - Atrial fibrillation Status: Acute Artie Garcia MD Aug 05, 2017 09:15
--- NOTE | 2017-08-05 11:03 | RSPPFT ---
DATE OF PROCEDURE: 08/04/17 COMMENTS: Spirometry shows FVC of 2.0 at 55% of predicted, FEV1 of 1.2 at 47%, FEV1/FVC ratio is decreased. Flow is decreased at FEF 25, FEF 50, FEF 75 and FEF 25-75. Flow volume loop indicates an obstructive pattern. IMPRESSION: 1. Moderately severe obstructive lung disease. 2. Post-bronchodilator study was not done.
[2017-08-05] MEDS ORDERED: PYRI100T PO (11:21)
--- NOTE | 2017-08-05 13:42 | RADRPT ---
EXAM DATE/TIME: 08/05/2017 09:59 [place] COMPARISON: CT BRAIN W/O CONTRAST, July 20, 2017, 0:22. INDICATIONS : Pre operative TAVR. IV CONTRAST: 100 cc Omnipaque 350 (iohexol) IV RADIATION DOSE: 85.61 CTDIvol (mGy) MEDICAL HISTORY : Diabetes mellitus type 2. Hypertension. SURGICAL HISTORY : Coronary artery stent. ENCOUNTER: Initial ACUITY: 1 day PAIN SCALE: 0/10 LOCATION: Bilateral chest TECHNIQUE: Volumetric scanning was performed using a multi-row detector CT scanner. The data was post processed with a variety of visualization algorithms including full volume maximum intensity projection, multi -planar sliding thin slab reformation, curved planar reformation, and surface rendering techniques. Using automated exposure control and adjustment of the mA and/or kV according to patient size, radiat ion dose was kept as low as reasonably achievable to obtain optimal diagnostic quality images. DIC OM format image data is available electronically for review and comparison. FINDINGS: CARDIAC: The coronary system is right dominant. There is fairly extensive atherosclerotic plaquing in the jason nary arteries. There is minimal pericardial effusion.. AORTIC ROOT/VALVE: 3 valvular cusps are evident with moderate calcification of the valvular leaflet as well as the annul us.. The aortic root measures 2.5. The tubular portion of the ascending aorta measures approximately 3.4 cm in maximum dimension. T here is only minimal atherosclerotic calcification. THORACIC AORTA: There is bovine branching of the great vessels from the arch. There is moderate atherosclerotic calci fication at the ostia. There is no hemodynamically significant stenosis. The arch itself is at the up per limits of normal in caliber proximally. It measures 2.9 cm. The distal portion of the arch is mil dly aneurysmal at 3.4 cm. The descending thoracic aorta measures 3 cm throughout its course. The aort a tapers down to 2.5 cm at the diaphragmatic hiatus. There is mild, scattered, calcified atherosclero tic plaque. There is no dissection. No hemodynamically significant stenosis is identified. ABDOMINAL AORTA: There is densely calcified atherosclerotic plaque at the celiac and SMA origins. The celiac and SMA o rigins do arise from a conjoined trunk. There is mild stenosis but no hemodynamically significant les ion. There is a single renal artery on the right. There is ostial plaquing but no hemodynamically sig nificant stenosis. There is a small accessory renal on the left. There is mild ostial renal stenosis of the main renal on the left. The accessory is diminutive in caliber. The infrarenal aorta is heavil y calcified but adequate in caliber throughout it measures approximately 2 cm in size. RIGHT COMMON/EXTERNAL ILIAC: The right common iliac demonstrates atherosclerotic plaque but is adequate in caliber throughout. It measures 1.2 cm in maximum dimension. The external iliac circulation and common femoral circulation a re widely patent and normal in caliber. LEFT COMMON/EXTERNAL ILIAC: The left common iliac demonstrates Atherosclerotic Plaque but No Significant Stenosis. It Measures Ap proximately 1 Cm in Its Mid Segment. The External Iliac Circulation and Common Femoral Circulation Ar e Widely Patent As Well. THORAX: The examination demonstrates small bilateral effusions larger on the left than the right. There are C OPD changes within the pulmonary parenchyma. There is tubular bronchiectasis. The heart is enlarged. There is minimal pericardial effusion. There are some scattered nodes evident within the middle media stinum. The largest measures 9 mm. They're nonspecific by CT size criteria. The heart is enlarged. 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 ABDOMEN: The solid organs of the abdomen demonstrate 2 simple cyst arising from the right kidney. The largest measures 6.7 cm. The more inferior cyst measures 5.1 cm. cm simple cyst arising from the right kidney . There several small simple cyst seen arising from the left kidney. There is no retroperitoneal lymp hadenopathy. No free fluid or free air is evident. PELVIS: There is no free fluid within the pelvis. No iliac or inguinal adenopathy is present. The prostate is enlarged measuring 6.4 x 6.1 cm. There are degenerative changes throughout the lumbar spine. CONCLUSION: 1. There is fairly extensive atherosclerotic calcification involving the valvular leaflets of the aor tic valve and the aortic annulus. This is described in detail above. Mahamed Stafford MD on August 05, 2017 at 13:22 Board Certified Radiologist. This report was verified electronically.
--- NOTE | 2017-08-05 14:17 | HHI.DS ---
Discharge Summary Admission Date 08/04/2016 Discharge Date: Aug 05, 2017 Admitting Diagnosis (1) Aortic stenosis, severe ICD Codes: I35.0 - Nonrheumatic aortic (valve) stenosis (2) Atrial fibrillation ICD Codes: I48.91 - Atrial fibrillation Status: Acute CBC/BMP: 08/04/17 0904 08/04/17 0904 Significant Findings Laboratory Tests Test 08/04/17 08:59 08/04/17 09:04 08/04/17 09:05 08/04/17 09:30 Prothrombin Time 25.7 SEC (9.8-11.6) Activated Partial Thromboplast Time 42.7 SEC (24.3-30.1) Red Blood Count 3.95 MIL/MM3 (4.50-5.90) Hemoglobin 12.1 GM/DL (13.0-17.0) Hematocrit 36.3 % (39.0-51.0) Platelet Count 104 TH/MM3 (150-450) Neutrophils (%) (Auto) 77.3 % (16.0-70.0) Lymphocytes (%) (Auto) 7.7 % (9.0-44.0) Monocytes (%) (Auto) 10.4 % (0.0-8.0) Lymphocytes # (Auto) 0.4 TH/MM3 (1.0-4.8) Blood Urea Nitrogen 22 MG/DL (7-18) Sodium Level 135 MEQ/L (136-145) Potassium Level 3.0 MEQ/L (3.5-5.1) Estimat Glomerular Filtration Rate 55 ML/MIN (>89) Urine Leukocyte Esterase TRACE (NEG) Urine WBC Clumps RARE (NONE) Imaging Last Impressions Chest X-Ray 08/04/17 0000 Signed Impressions: Service Date/Time: Friday, August 04, 2017 14:31 - CONCLUSION: No acute disease. Geronimo Salgado MD Chest CTA 08/04/17 0000 Signed Impressions: Service Date/Time: Saturday, August 05, 2017 09:59 - CONCLUSION: 1. There is fairly extensive atherosclerotic calcification involving the valvular leaflets of the aortic valve and the aortic annulus. This is described in detail above. Mahamed Stafford MD PE at Discharge GENERAL: Well-nourished, well-developed patient. SKIN: Warm and dry. HEAD: Normocephalic. EYES: No scleral icterus. No injection or drainage. NECK: Supple, trachea midline. No JVD or lymphadenopathy. CARDIOVASCULAR: Irr Irr, 3/6 ARJUN no gallops, or rubs. RESPIRATORY: Breath sounds equal bilaterally. No accessory muscle use. GASTROINTESTINAL: Abdomen soft, non-tender, nondistended. EXTREMITIES: No cyanosis, or edema. NEUROLOGICAL: Awake, alert, and oriented x 3. Non-focal. Pt Condition on Discharge: Good Discharge Disposition: Discharge Home Discharge Instructions DIET: Follow Instructions for: As Tolerated, No Restrictions Activities you can perform: Regular-No Restrictions Continued Medications: Allopurinol (Allopurinol) 100 Mg Tab 100 MG PO BID for Gout, #30 TAB 0 Refills Aspirin (Aspirin 81 Low Dose) 81 Mg Chew 81 MG CHEW DAILY, #30 TAB Atorvastatin (Atorvastatin) 40 Mg Tab 40 MG PO HS for Cholesterol Management, #30 TAB 0 Refills Captopril (Captopril) 25 Mg Tab 25 MG PO DAILY, #60 TAB 0 Refills Take 1 hr before meals. Cholecalciferol (Vitamin D3) 1,000 Unit Cap Unknown Dose PO DAILY for Nutritional Supplement, #1 BOTTLE 0 Refills Coenzyme Q10 (Ubidecarenone) (Co Q 10) 100 Mg-5 Unit Cap 100 MG PO DAILY Cyanocobalamin (Vitamin B-12) 1,000 Mcg Tab Unknown Dose PO TID for Nutritional Supplement, #1 BOTTLE 0 Refills Ferrous Gluconate (Ferrous Gluconate) 240 Mg (27 Mg Iron) Tab 240 MG PO DAILY for Nutritional Supplement, #30 TAB 0 Refills Finasteride (Finasteride) 5 Mg Tab 5 MG PO DAILY for Manage Prostate Problems, #30 TAB 0 Refills Do not crush. Furosemide (Furosemide) 40 Mg Tab 40 MG PO DAILY, #30 TAB 0 Refills Insulin Detemir Inj (Levemir Inj) 1,000 unit/ 10 ML Vial 28 UNITS SQ DAILY for Blood Sugar Management, VIAL 0 Refills Do not mix with any other Insulin. Loratadine (Claritin) 5 Mg Chew Unknown Dose CHEW DAILY for Allergy Management, TAB 0 Refills Magnesium Chloride (Mag-Delay) 70 Mg Magnesium Tab 500 MG PO BID, TAB 0 Refills Metoprolol Succinate ER 24 HR (Toprol XL) 50 Mg Tab 50 MG PO DAILY, #30 TAB 0 Refills Polyethylene Glycol 3350 Powder (Miralax Powder) 17 Gm Powd 17 GM PO DAILY PRN for CONSTIPATION, #1 CAN 0 Refills Mix and dissolve one measuring cap-ful (17 grams) in water or juice. Potassium Chloride ER (Potassium Chloride ER) 20 Meq Tab 20 MEQ PO DAILY for Electrolyte Replacement, #30 TAB 0 Refills Pyridoxine (Vitamin B-6) 100 Mg Tab 100 MG PO DAILY for Nutritional Supplement, #30 TAB 0 Refills Warfarin (Warfarin) 4 Mg Tab 4 MG PO DAILY for Blood Clot Prevention, #30 TAB 0 Refills Artie Gacria MD Aug 05, 2017 14:17
--- NOTE | 2017-08-05 14:43 | MB ---
cc: AMY CALLE DATE OF CONSULTATION 08/04/2017 HISTORY OF THE PRESENT ILLNESS An 87-year-old male. Patient of Dr. Edmund Bella, Dr. Cee, also Dr. Galvan who underwent cardiac catheterization today. History of aortic stenosis seen by Dr. Bhat back in April for not feeling well and had a workup at that time. He also had an echo back in 2012 which showed a valve area of 1.03. He underwent repeat echocardiogram with a valve area of 0.4. Also some mild mitral regurgitation, ejection fraction of 50%. The patient underwent cardiac cath which revealed circumflex of 99% which is a small vessel medical management. We were consulted to evaluate for evaluation for transcatheter aortic valve replacement candidacy. PAST MEDICAL HISTORY The patient's past medical history: 1. Chronic atrial fibrillation. 2. Aortic stenosis. 3. Chronic anemia. 4. Kidney stones. 5. History of cardiogenic shock following a STEMI back in 2003 where he had a stent placed to the RCA. 6. History of congestive heart failure in 2017. 7. Diabetes mellitus type 2. 8. Gout. 9. Hyperlipidemia. 10. Hypertension. 11. History of neuroendocrine tumor in [address] Bonilla and Dr. Shah. He has been in remission since. 12. History of Paget's disease. 13. Tricuspid insufficiency. 14. 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 PAST SURGICAL HISTORY Surgeries include: 1. Cardiac cath. 2. Cataract surgery. 3. Cholecystectomy. 4. Colonoscopy. 5. Prostate surgery. 6. Tonsillectomy. 7. Sinus surgery 20 years ago. ALLERGIES THE PATIENT HAS ALLERGIES TO NIACIN AND SITAGLIPTIN. MEDICATIONS His home medications include: 1. Claritin. 2. Ferrous sulfate. 3. Coumadin. 4. Atorvastatin. 5. Toprol. 6. Catapril. 7. Aspirin. 8. Magnesium. 9. Potassium. 10. Lasix. 11. MiraLax. 12. Insulin. 13. Levemir 28 units daily. 14. Some multivitamin. 15. Allopurinol. 16. Proscar. FAMILY HISTORY Mother from kidney failure at age 83. Father from stroke at 87. SOCIAL HISTORY The patient . very mobile. Still mows his lawn. 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 No alcohol. Retired from [employer]. Former tobacco, quit 1963. REVIEW OF SYSTEMS GENERAL: No night sweats, fever, heat and cold intolerance. SKIN: No psoriasis, itching or hives. HEENT: No blurred vision, hearing loss. RESPIRATORY: Occasional shortness of breath. CARDIOVASCULAR: Occasional fatigue. No chest pain. GASTROINTESTINAL: No diarrhea, vomiting. GENITOURINARY: No burning frequency, urgency. DATA SECURITY ANALYST: No history of TIA, CVA, seizure disorder. ENDOCRINE: Positive for diabetes. PHYSICAL EXAMINATION VITAL SIGNS: On exam blood pressure 160/90, heart rate 94, temperature 97.9, O2 sat 92 on 2 liters. GENERAL: Patient is awake, alert, no acute distress. HEENT: Head normocephalic, atraumatic. 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 Pupils are equal and reactive. Oral mucosa pink, moist. NECK: Supple. No JVD. CARDIOVASCULAR: Heart sounds S1-S2, irregular rate and rhythm with a grade 3/6 systolic murmur. LUNGS: Clear to auscultation. No wheezes, rales or rhonchi. ABDOMEN: Soft, nontender. No masses or organomegaly. EXTREMITIES: Reveal trace edema. Good distal pulses. The patient also had recent apparently an accident where he had an injury to his scalp and required some sutures. He had a CT head at that time, July 19 which showed complete opacification of the left maxillary sinus. There was concern for mass, however he has had sinus surgery in the past. He has not seen in ENT for this. IMPRESSION This is an 87-year-old male with severe aortic stenosis, one-vessel coronary disease which is a small vessel and will be treated medically. However, the patient STS risk factor is a risk mortality of 3.067. He has a 1/4 frailty. However, he does have other risk factors to include morbidity, mortality with his diabetes, chronic atrial fibrillation, history of CHF. Deemed an intermediate risk for transcatheter aortic valve replacement. The patient will need to be seen also by our partner Dr. Verdin to be evaluated for also candidacy for transcatheter aortic valve replacement. DICTATED BY: ALVA Murray Amy Calle MD [facility]/DIANA Mariee: 08/04/2017/4:09 PM /11:32 AM
--- NOTE | 2017-08-05 14:44 | EKG ---
Date Performed: 08/04/2017 Time Performed: 14:50:42 PTAGE: 87 years EKG: Atrial fibrillation. Poor R wave progression - probable normal variant Inferior/lateral ST- T changes are nonspecific Low QRS voltages in precordial leads Abnormal ECG Since PREVIOUS TRACING , no significant change noted PREVIOUS TRACIN08/04/2017 09.19 DOCTOR: Silvia Bhat Interpretating Date/Time 08/05/2017 14:44:13
--- NOTE | 2017-08-05 14:45 | EKG ---
Date Performed: 08/04/2017 Time Performed: 09:19:32 PTAGE: 87 years EKG: Atrial fibrillation. Extensive ST-T changes are nonspecific Low QRS voltages in precordial leads Abnormal ECG Since PREVIOUS TRACING , no significant change noted PREVIOUS TRACIN03/10/2015 07.01 DOCTOR: Silvia Bhat Interpretating Date/Time 08/05/2017 14:44:37
--- NOTE | 2017-08-07 14:49 | MB ---
cc: ANNA SMALL M.D., PEDRO KLANCKE, KIM A. M.D. DATE OF CONSULTATION: 08/07/2017 REASON FOR CONSULTATION: Second opinion regarding aortic valve stenosis. HISTORY OF PRESENT ILLNESS: Mr. Miller is a very pleasant 87 year-old gentleman with a known history of aortic stenosis for which he has been followed since [address] Bhat. He underwent an echocardiogram at that time which revealed mild to moderate aortic stenosis, since then repeat echocardiogram tests have shown progressive narrowing and stenosis of his aortic valve with the most recent echocardiogram demonstrating a valve are of 0.4 cm squared with preserved ventricular function and ejection fraction of 50%. He underwent a coronary angiogram by Dr. Galvan which revealed a 99% stenosis in the circumflex artery which is a very small vessel which is not interveneable. At that point Dr. Calle was consulted for surgical opinion regarding aortic valve therapy and a TAVR option was considered as I am now being consulted for a second opinion. At present time, Mr. Miller is comfortable although short of breath with minimal exertion to the bathroom, as well as some degree of shortness of breath with resting. Denies any chest pain or other complaints. PAST MEDICAL HISTORY 1. Significant for Atrial fibrillation. 2. Kidney stones. 3. History of acute myocardial infarction with cardiogenic shock in 2003. 4. History of congestive heart failure. 5. Diabetes mellitus 6. Hyperlipidemia 7. Hypertension 8. 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 9. History of Paget's disease. 10. History of neuroendocrine tumor 11. Chronic anemia. PAST SURGICAL HISTORY 1. Remarkable for coronary angiography and stenting as described above following his acute myocardial function 2. Cataract surgery 3. Cholecystectomy. 4. Colonoscopy 5. Prostate surgery 6. Tonsillectomy 7. Sinus surgery. ALLERGIES NIACIN SITAGLIPTIN MEDICATIONS home medications include 1. Claritin. 2. Ferrous sulfate. 3. Coumadin. 4. Atorvastatin 5. Toprol 6. Captopril 7. Toprol XL 8. Aspirin. 9. Magnesium. 10. Potassium. 11. Lasix. 12. MiraLax. 13. Insulin. 14. Allopurinol 15. Proscar. SOCIAL HISTORY Prior history of tobacco use which he quit in 64. Denies any excessive alcohol use or illicit drug use. FAMILY HISTORY Significant for kidney disease and stroke. REVIEW OF SYSTEMS Review of systems as above. All other parameters negative. PHYSICAL EXAMINATION: VITAL SIGNS: 178 cm tall, weight 85.6 kg, blood pressure is 126/81 with a heart rate of 73 which is irregular. respiratory rate is 18 and he is afebrile. HEAD, EYES, EARS, NOSE, AND THROAT: Normocephalic, atraumatic. Pupils are reactive. Extraocular muscles intact. NECK: No cervical lymphadenopathy, carotid bruits or JVD. CARDIOVASCULAR SYSTEM: Cardiovascular is regular irregularly irregular with normal S1-S2 without gallops or rubs. There is a 04/06 systolic ejection murmur most prominent the right parasternal border. LUNGS: Some basilar crackles, otherwise clear to auscultation with good air exchange. ABDOMEN: Soft, nontender, nondistended with bowel sounds no hepatosplenomegaly. EXTREMITIES: Bilateral lower extremity pulses are intact without cyanosis, clubbing. There is a 1 to 2+ pitting edema of the ankles. NEUROLOGIC: Intact with no focal deficit. IMPRESSION 1. Critical aortic stenosis 2. Recurrent congestive heart failure. 3. Coronary disease. 4. History of myocardial infarction. 5. Atrial fibrillation. 6. Kidney stones. 7. Diabetes mellitus 8. Gout. 9. Hyperlipidemia 10. Hypertension. PLAN The clinical, echo and the angio findings were discussed in detail with And Mrs. Miller today. Therapeutic options available including surgical aortic valve replacement versus TAVR were discussed. Given the patient's significant medical comorbidities, advanced age as well as frailty, I think he would best be served with the TAVR option. I agree that surgical intervention would carry a prohibitive risk in his case. We will proceed with TAVR following completion of his workup. Jodi Todd /2:03 PM /2:14 PM RONNELL
== END 2017-08-05 14:55 | disposition home or self-care (01) ==
LOC: HDOC 08:36 → HDIC 08:37 → HCIS 18:54 → HDOC 08-05 14:55
PROVIDERS: ATTEND Radiology Vascular & Interventional Radiology
DX: I35.0 Nonrheumatic aortic (valve) stenosis (principal); I11.0 Hypertensive heart disease with heart failure; I25.10 Atherosclerotic heart disease of native coronary artery without angina pectoris; I50.33 Acute on chronic diastolic (congestive) heart failure; I48.2 Chronic atrial fibrillation; R82.99 Other abnormal findings in urine; B96.89 Other specified bacterial agents as the cause of diseases classified elsewhere; I25.2 Old myocardial infarction; E11.9 Type 2 diabetes mellitus without complications; K21.9 Gastro-esophageal reflux disease without esophagitis; J44.9 Chronic obstructive pulmonary disease, unspecified; E78.5 Hyperlipidemia, unspecified; M10.9 Gout, unspecified; Z79.01 Long term (current) use of 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; Z79.82 Long term (current) use of aspirin; Z79.4 Long term (current) use of insulin; Z87.442 Personal history of urinary calculi; Z87.891 Personal history of nicotine dependence; D53.9 Nutritional anemia, unspecified
CPT/HCPCS: 71045; 74174; 80048; 81001; 82040; 85025; 85610; 85730; 86850; 86900; 86901; 87086; 87641; 92920; 93005; 93308; 93458; 94010; 99152; 99153; C1725; C1769; C1887; C1893; J1644; J1940; J2250; J3010; Q9967

== ENCOUNTER 2017-08-27 07:36 | Inpatient (IN) | payer OTHER, MEDICARE ==
[~2017-08-27] VITALS: Ht 177.8 cm; Wt 85.5 kg
[2017-08-27] VITALS (9 sets, daily range): BP systolic 116–157; BP diastolic 39–87; PULSE 61–86; RESP 14–18; TEMP 93.8–98.6; O2SAT 97–100
[~2017-08-27 07:36] MED LIST changes: +ATOR40TA16 PO; +CHOL10008 PO; +FINA5TAB2 PO; -NIAC100T2 PO; +PYRI100T PO; -SITA25 PO
[2017-08-27] MEDS ORDERED: INSULIN HUMAN REGULAR 1,000 UNITS/10 ML VIAL SQ PRN (08:15)
[2017-08-27] MEDS ORDERED: ASPIRIN 325 MG TAB PO SCH (08:15)
[2017-08-27] MEDS: SODIUM CHLOR 0.9% 1000 ML 1,000 ML IV SCH ×2 (08:15→15:52)
[2017-08-27] MEDS ORDERED: METOPROLOL TARTRATE 25 MG TAB PO PRN (08:15)
[2017-08-27] MEDS ORDERED: POVIDONE IODINE 5% (ANTISEPSIS KIT) EACH NARE PRN (08:15)
[2017-08-27] MEDS ORDERED: MUPIROCIN 2% OINT 1 APPLIC/GM SYRINGE EACH NARE PRN (08:15)
[2017-08-27] MEDS ORDERED: POVIDONE IODINE 5% (ANTISEPSIS KIT) 4 APPLICATIONS EACH NARE PRN (08:15)
[2017-08-27] MEDS ORDERED: CHLORHEXIDINE GLUCONATE 2 % 1 PACK (2 CLOTHS) TOPICAL PRN ×2 (08:15)
[2017-08-27] MEDS ORDERED: LACTATED RINGER'S 1000 ML IV PRN (08:15)
[2017-08-27] MEDS ORDERED: SODIUM CHLORID 0.9% 500 ML IV PRN (08:15)
[2017-08-27] MEDS ORDERED: ceFAZolin 2 GM PREMIX 50 ML IV PRN (08:15)
[2017-08-27] MEDS ORDERED: VITA1000 PO (08:37)
[2017-08-27 08:48] LABS: AUTOMATED NEUTROPHIL # 4.1 TH/MM3 (1.8-7.7); BASOPHIL # 0.1 TH/MM3 (0-0.2); BASOPHIL % 1.1 % (0.0-2.0); EOSINOPHIL # 0.2 TH/MM3 (0-0.4); EOSINOPHIL % 3.7 % (0.0-4.0); HEMATOCRIT 34.5 % (39.0-51.0); HEMOGLOBIN 11.8 GM/DL (13.0-17.0); LYMPHOCYTE # 0.4 TH/MM3 (1.0-4.8); MEAN CELL VOLUME 90.6 FL (80.0-100.0); MEAN CORPUSCULAR HEMOGLOBIN 31.1 PG (27.0-34.0); MEAN CORPUSCULAR HGB CONC 34.3 % (32.0-36.0); MEAN PLATELET VOLUME 10.2 FL (7.0-11.0); MONO % 9.4 % (0.0-8.0); MONOCYTE # 0.5 TH/MM3 (0-0.9); NEUT % 78.8 % (16.0-70.0); PLATELET COUNT 99 TH/MM3 (150-450); RED BLOOD COUNT 3.81 MIL/MM3 (4.50-5.90); WHITE BLOOD COUNT 5.2 TH/MM3 (4.0-11.0)
[2017-08-27 09:00] LABS: PROTHROMBIN TIME - PATIENT 20.6 SEC (9.8-11.6)
[2017-08-27 09:09] LABS: CALCIUM 9.2 MG/DL (8.5-10.1); CREATININE 1.27 MG/DL (0.60-1.30)
[2017-08-27 09:53] LABS: BANDS 10 % (0-6); LYMPHOCYTES 6 % (9-44); MONOCYTES 7 % (0-8); NEUTROPHIL # MANUAL DIFF 4.3 TH/MM3 (1.8-7.7); OVALOCYTES 1+ (NORMAL); POLYS (SEG NEUTROPHILS) 73 % (16-70)
[2017-08-27] MEDS ORDERED: POTASSIUM CHLOR 20 MEQ PREMIX 100 ML ONE (10:03)
[2017-08-27] MEDS ORDERED: HEPARIN SODIUM - IV 10,000 UNITS/10 ML VIAL ONE (10:24)
[2017-08-27] MEDS ORDERED: PROTAMINE SULFATE 50 MG/5 ML VIAL ONE (10:24)
[2017-08-27] MEDS ORDERED: HEPARIN-NS/PF FLUSH BAG 1,000 ML IV FLUSH ONE (10:39)
--- NOTE | 2017-08-27 10:52 | MH ---
cc: MINOR,DANIEL DATE OF ADMISSION 08/27/2017 REASON FOR ADMISSION Transaortic valvular replacement. HISTORY OF PRESENT ILLNESS This is an 87-year-old gentleman. He follows with the [facility] and has a history of anemia, atrial fibrillation, congestive heart failure, diabetes, hyperlipidemia, hypertension. He presented for evaluation secondary to severe aortic stenosis. He has low normal ejection fraction of 50%. He has prior history of ST-elevation myocardial infarction with right coronary artery intervention. He underwent diagnostic angiogram back in July which showed branch vessel coronary artery disease managed medically. He was evaluated by the cardiothoracic surgeons, Dr. Calle and Dr. Verdin, and felt to be high risk for surgical aortic valve replacement. He is now scheduled here for today for transcatheter aortic valve replacement. PAST MEDICAL HISTORY 1. Anemia. 2. Aortic stenosis. 3. Atrial fibrillation. 4. Nephrolithiasis. 5. Congestive heart failure. 6. Coronary artery disease with prior percutaneous intervention. ALLERGIES 1. JANUVIA. 2. NIASPAN. FAMILY HISTORY Denies any family history of early coronary artery disease or sudden cardiac . SOCIAL HISTORY Denies any alcohol but does report prior tobacco use. No drug use. PHYSICAL EXAMINATION VITAL SIGNS: Temperature 97, pulse 85, blood pressure 148/87 mmHg. GENERAL: Alert and oriented x3, in no acute distress. HEENT: Pupils are reactive to light and accommodation, extraocular movements are intact. NECK: No jugular venous distention. No thyromegaly. No lymphadenopathy. No carotid bruits. LUNGS: Clear to auscultation bilaterally. CARDIOVASCULAR: Irregularly irregular rhythm without murmurs, rubs or gallops. ABDOMEN: Nontender, nondistended. Good bowel sounds. No hepatosplenomegaly. EXTREMITIES: No clubbing, cyanosis or edema. Good peripheral pulses. NEUROLOGIC: Cranial nerves intact. Motor and sensory grossly intact. TAVR PREOPERATIVE ASSESSMENT STS score calculated at 6.2%. [place] [employer] Class III. BMI 27.7. Frailty score 1/. Electrocardiogram shows atrial fibrillation, mild intraventricular conduction delay. Pulmonary function testing showed moderate obstructive lung disease with an FEV-1 of 1.29 and FEV-1 percent of 47%. Echocardiogram qualified with a peak jet velocity of 4.05 meters per second. Mean gradient calculated at 38.7 mmHg with a calculated aortic valve area of 0.4 centimeter squared. Ejection fraction 50%. There is noted to be mild aortic, mitral and tricuspid valve insufficiency. Coronary angiogram revealed moderate mid left anterior descending coronary disease with a subtotal small second obtuse marginal branch with failed attempt at percutaneous intervention by Dr. Galvan which we manage medically. CT analysis of the chest shows a short annulus diameter 21.7, long annulus diameter of 28.7, annular area 486 millimeters squared. Sinus of Valsalva diameter 31.6 mm, sinotubular junction diameter 29.8 mm, left coronary height 21.7 mm with a right coronary height 12.4 mm. Luminal diameter in the right iliac system 6.9 mm, left system 8.0 mm. There is tortuosity within the left iliac system. LABORATORY WBC 5.2, hemoglobin 11.8, platelet count 99, prior platelet count 104. INR 2.0. Sodium 136, potassium 2.7, BUN 21, creatinine 1.27. ASSESSMENT This is an 87-year-old gentleman with a history of known coronary artery disease, prior percutaneous intervention to the right coronary artery with subtotally occluded small second obtuse marginal branch managed medically, hypertension, hyperlipidemia, chronic atrial fibrillation on anticoagulation therapy, diabetes and neuroendocrine tumor, who now presents with severe symptomatic aortic stenosis and class III/class IV [place] [employer] CHF. Echocardiogram shows severe aortic stenosis. CT scan shows an annular area of 486 and will implant a 26 mm Mckeon S3 valve. PLAN/RECOMMENDATIONS Dr. Verdin and Dr. Calle have evaluated the patient and he is felt to be high risk for surgical aortic valve replacement. Will obtain access for delivery of the percutaneous valve through the right common femoral artery. He has known thrombocytopenia, baseline around 100 gm/dl. Potassium is being repleted now. He stopped his Coumadin five days prior but his INR is still borderline elevated at 2.0. We are going to go ahead and administer 5 mg of IV vitamin-K slowly in addition to administration of FFP intravenously to try to reduce any potential risk for bleeding. The risks, benefits and alternatives were discussed with the patient which include but not limited to bleeding both internally or at the groin site, arrhythmia, myocardial infarction, stroke, and . Both the patient and his were present for the discussion and are agreeable to proceed. MD LEONELA Fitch /10:05 AM /10:23 AM
[2017-08-27] MEDS ORDERED: PHYTONADIONE IV ONE ×2 (11:00)
[2017-08-27] MEDS ORDERED: WATER IV ONE ×2 (11:00)
[2017-08-27] MEDS: POTASSIUM CHLOR 20 MEQ PREMIX 100 ML IV SCH ×2 (11:00→13:00)
[2017-08-27] MEDS ORDERED: DEXTROSE 5% IV ONE ×2 (11:00)
[2017-08-27] MEDS ORDERED: PHYTONADIONE 10 MG/D5W 50 ML IV ONE ×2 (11:00)
--- NOTE | 2017-08-27 12:50 | EKG ---
Date Performed: 08/27/2017 Time Performed: 08:36:44 PTAGE: 87 years EKG: Atrial fibrillation Possible anterior infarct - age undetermined Inferior/lateral ST-T medina ges may be due to myocardial ischemia Abnormal ECG PREVIOUS TRACING : 08/04/2017 14.50 DOCTOR: Khoa Michael Interpretating Date/Time 08/27/2017 12:47:17
[2017-08-27] MEDS ORDERED: IOHEXOL IV ONE (14:02)
[2017-08-27] MEDS ORDERED: NOREPINEPHRINE 4 MG/4 ML AMP ONE (14:36)
[2017-08-27] MEDS ORDERED: NITROGLYCERIN INJ 5 ML ONE (14:41)
[2017-08-27] MEDS ORDERED: NITROGLYCERIN-D5W 50 MG/250 ML 0 ML ONE (14:47)
--- NOTE | 2017-08-27 15:10 | PD.OP ---
cc: Amy Calle MD; Khoa Michael MD Operative Report Date of Surgery: Aug 27, 2017 Preoperative Diagnosis: (1) Diastolic CHF due to valvular disease (2) Aortic stenosis, severe (3) Atrial fibrillation Postoperative Diagnosis: same Procedure: Transcatheter aortic valve replacement with a 26 Mariela 3 tissue valve Balloon aortic valvuloplasty with a 23 Mckeon balloon Bilateral percutaneous femoral artery access with Perclose closure Left femoral venous access Aortography fluoroscopy Anesthesia: Dr. Villeda Surgeon: Amy Calle Co-surgeon - Dr. Michael Medication Manager(s): Dr. Verdin Operation and Findings: The risks, benefits, complications, treatment options, and expected outcomes were discussed with the patient. The possibilities of reaction to medication, pulmonary aspiration, perforation of viscus, bleeding, recurrent infection, the need for additional procedures, failure to diagnose a condition, and creating a complication requiring transfusion or operation were discussed with the patient. The patient concurred with the proposed plan, giving informed consent. The site of surgery properly noted/marked. The patient was taken to the hybrid operating room, identified as Kim Miller and the procedure verified as Transcatheter Aortic Valve Replacement. A Time Out was held and the above information confirmed. Standard monitoring lines and Weber catheter were placed. General anesthesia was induced. The patient was prepped and draped in a sterile fashion. Initially, left femoral arterial and venous access was acquired using a Seldinger percutaneous technique. The details of this procedure were dictated under separate note by cardiology. Once a pigtail was positioned in the aortic annulus and a temporary transvenous pacemaker wire was placed in the right ventricular apex and tested, the patient was heparinized such that the ACT was greater than 300 second. The right femoral artery was accessed using a needle followed by a guidewire under fluoroscopic guidance. Perclose devices were deployed for later closure. Serial dilators were used to dilate the right femoral artery to 16 Malawian caliber. The Mckeon sheath was then inserted into the artery up to the distal abdominal aorta. Arch aortography was performed to define the implant view. A balloon aortic valvuloplasty was then performed using a 24 x 4 balloon with the patient being paced at 150 beats per minute. A 26 Mckeon Mariela 3 transcatheter aortic valve was then positioned in the annulus and deployed with the patient being paced at 180 beats per minute. The patient was hypotensive and required CPR for about a minute before stabilizing. Following deployment, the valve apparatus was withdrawn and arch aortography and JULIO were performed to assess the valve. The valve had no significant perivalvular leaks. Gradients were then measured and the sheath was removed. Protamine was administered and the Perclose sutures secured. Sterile dressings were placed. At the end of the operation , all sponge, instruments, and needle counts were correct. The patient was transferred to the CVICU in stable condition. Findings: Moderate AI prior to deployment with hemodynamic instability following the BAV. Implants: 26 S3 tissue valve Complications: as above, hemodynamic instability for !~1-2 minutes Disposition: to CVICU in stable condition Amy Calle MD Aug 27, 2017 15:10
[2017-08-27] MEDS ORDERED: MIDAZOLAM HCL 2 MG/2 ML VIAL ONE (15:53)
[2017-08-27] MEDS ORDERED: hydrALAZINE HCL 20 MG/ML VIAL ONE (15:55)
[2017-08-27] MEDS ORDERED: INSULIN REGULAR (IV INFUSION) 100 UNITS in SODIUM CHLORIDE 0.9% INJ 99 ML IV PRN (16:00)
[2017-08-27] MEDS ORDERED: POTASSIUM CHLOR 40 MEQ PREMIX 100 ML IV ONE (16:00)
[2017-08-27] MEDS ORDERED: SODIUM CHLOR 0.9% 1000 ML INJ 1,000 ML IV SCH (16:05)
[2017-08-27] MEDS ORDERED: DEXTROSE 50% IN WATER 50 ML VIAL(D50) IV PUSH PRN (16:15)
[2017-08-27] MEDS ORDERED: MISC INFORMATION OTHER ONE (16:15)
[2017-08-27] MEDS ORDERED: GLUCAGON 1 MG/ML VIAL OTHER PRN (16:15)
--- NOTE | 2017-08-27 16:39 | PD.PROCEDR ---
Procedure Note Procedure Procedure: Transesophageal Echocardiography Diagnosis: Severe symptomatic aortic stenosis Indications: Perioperative planning for transcatheter aortic valve replacement Consent: Obtained Anesthesia: Gen. Endotracheal anesthesia Description of the Procedure: The patient was sedated and mechanically ventilated. The echo probe was inserted easily and without resistance. At the conclusion of the procedure, the echo probe was removed. Please see detailed echocardiogram report for formal findings. Preliminary Findings (not confirmed): pre-procedure: 1) grossly preserved LV function 2) normal RV function 3) severe aortic stenosis 4) mild aortic regurgitation 5) mild mitral regurgitation 6) no pericardial effusion post-procedure: 1) s/p successful placement of transcatheter bioprosthetic aortic valve 2) no evidence of transvalvular stenosis 3) trace perivalvular leak 4) no pericardial effusion The patient tolerated the procedure well with no hemodynamic instability. There were no immediate complications noted. There was minimal EBL. I personally performed the procedure. Michi Allen MD Aug 27, 2017 16:39
--- NOTE | 2017-08-27 16:43 | PD.PROCEDR ---
Procedure Note Procedure Complicated Urinary Catheter Placement Diagnosis: Benign prostatic hypertrophy Indications: Patient is an 87-year-old male with severe symptomatic aortic stenosis for elective transcatheter aortic valve replacement. Patient underwent general anesthesia, followed by placement of 16 Kosovan López with gross hematuria. Urology was consulted and recommended replacement of López with larger 3-way López for continues by irrigation. Circulating nurse was unable to perform this, consulting physician to place. Successful placement: 24 Kosovan three-way López catheter, over guidewire exchange, confirmed with fluoroscopy. Description of the Procedure: Initially, under fluoroscopic guidance, diluted contrast was injected into the Lópze balloon to 16 Kosovan López him a confirming that the initial López catheter was intravesicular. After this, a soft flexible guidewire was inserted into the lópez catheter and again the guidewire confirmed intravesicular. Over the guidewire, the lópez was exchanged for a lubricated 24 Fr 3-way lópez catheter which I placed without resistance. Again, this new catheter was confirmed intravesicular using diluted contrast under fluorscopy. urosanguinous output was observed. CBI was initiated. No immediate complications noted. I personally performed the procedure. Michi Allen MD Aug 27, 2017 16:43
--- NOTE | 2017-08-27 16:56 | PD.CONS ---
[facility] Service Critical Care Medicine Consult Requested By Dr. Michael Reason for Consult perioperative management of medical comorbidities Primary Care Physician No Primary Care Physician History of Present Illness This is an 87-year-old male with a history of severe symptomatic aortic stenosis , atrial fibrillation, diastolic dysfunction, benign prostatic hypertrophy, kidney stones who presents for elective transcatheter aortic valve replacement. Intraoperatively, his procedure was complicated by hematuria after 16 [place] López catheter placement. This hematuria and clots obstructed the López catheter. Urology was consulted and recommended replacing with a larger 3-way López catheter. Urology's request, I placed a 24 [place] Korean three-way López and initiated continuous bladder irrigation (see separate procedure note for details ). Preoperatively, the patient had serum potassium of 2.7, and INR 2.9, platelet count 99,000. Patient was given 2 units FFP and vitamin K, along with 40 mEq of KCl IV. Immediately after deployment of the transcatheter valve, the patient had a brief period of low flow state with poor cardiac output due to myocardial stunning, requiring approximately 60- 90 seconds of chest compressions. After this, patient spontaneously regained adequate cardiac output and his hemodynamic stabilized. There were no additional consultations the procedure. The patient will continue the case and followed all commands briskly in all 4 extremity's. He was extubated and taken to the CVICU. I evaluated patient intraoperatively as well as postoperatively the CVICU. Patient is arousing from anesthesia and cannot provide a detailed history, however the patient denies chest pain, shortness of breath. Patient continues to briskly follow commands all 4 extremity's. Review of Systems ROS Limitations: Clinical Condition, Altered Mental Status Respiratory: DENIES: Shortness of breath Cardiovascular: DENIES: Chest pain Neurologic: DENIES: Headache, Localized weakness ROS Arousing from anesthesia Past Family Social History Allergies: Coded Allergies: niacin (Verified Allergy, Unknown, 08/27/17) sitagliptin (Unverified Adverse Reaction, Severe, STOMACH PAIN, 08/27/17) Past Medical History Anemia Atrial fibrillation Severe symptomatic aortic stenosis Nephrolithiasis Congestive heart failure with preserved EF Coronary artery disease Prior acute [place] with cardiogenic shock in 2003 Diabetes Hyperlipidemia Hypertension 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 Atorvastatin (Atorvastatin Calcium) 40 Mg Tab 40 Mg PO HS Miralax Powder (Polyethylene Glycol 3350 Powder) 17 Gm Powd 17 Gm PO DAILY PRN Mix and dissolve one measuring cap-ful (17 grams) in water or juice. Co Q 10 (Coenzyme Q10 (Ubidecarenone)) 100 Mg-5 Unit Cap 100 Mg PO DAILY Aspirin 81 Low Dose (Aspirin) 81 Mg Chew 81 Mg CHEW DAILY Vitamin B-12 (Cyanocobalamin) 1,000 Mcg Tab Unknown Dose PO TID Levemir Inj (Insulin Detemir) 1,000 unit/ 10 ML Vial 28 Units SQ DAILY Do not mix with any other Insulin. Potassium Chloride ER (Potassium Chloride) 20 Meq Tab 20 Meq PO DAILY Furosemide 40 Mg Tab 40 Mg PO DAILY Mag-Delay (Magnesium Chloride) 70 Mg Magnesium Tab 500 Mg PO BID Ferrous Gluconate 240 Mg (27 Mg Iron) Tab 240 Mg PO DAILY Captopril 25 Mg Tab 25 Mg PO DAILY Take 1 hr before meals. Toprol XL (Metoprolol Succinate) 50 Mg Tab 50 Mg PO DAILY Warfarin 4 Mg Tab 4 Mg PO DAILY Allopurinol 100 Mg Tab 100 Mg PO BID Active Ordered Medications See MAR Family History Reviewed the chart and found to be noncontributory to his acute illness Social History Former smoker, denies EtOH or other drugs Physical Exam Vital Signs Vital Signs Date Time Temp Pulse Resp B/P (MAP) Pulse Ox O2 Delivery O2 Flow Rate FiO2 08/27/17 11:40 97.5 61 17 129/76 100 08/27/17 08:29 97.5 85 18 148/87 (107) 100 Physical Exam GENERAL: Frail elderly male, lying in bed, arousing from anesthesia HEENT: Normocephalic. Atraumatic. Pupils equal, round, reactive, conjugate. Mucous membranes are moist NECK: Trachea is midline. There is no JVD, 6 [place] Korean introducer sheath in the right IJ with transvenous pacer, site clean dry and intact CHEST: Equal chest rise. Nasal cannula oxygen. CARDIOVASCULAR: Normal rate, irregularly irregular rhythm. A. fib by telemetry. Transvenous pacer is VVI backup rate of 50, not currently paced ABDOMEN: Soft, nontender, nondistended. No guarding. MUSCULOSKELETAL: Pulses 2+. No peripheral edema. Groin sites covered with clean dressings, clean dry and intact, no evidence of hematoma. Distal pulses 2 +. Genitourinary: [address], urine is much more clear then on my initial evaluation approximately 2 hours prior. Now is light yellow with only a slight pink tinge. NEUROLOGICAL: RASS -2. Arousing from anesthesia. Follows commands all 4 extremities briskly. No focal deficits Laboratory Laboratory Tests Test 08/27/17 08:25 White Blood Count 5.2 Red Blood Count 3.81 Hemoglobin 11.8 Hematocrit 34.5 Mean Corpuscular Volume 90.6 Mean Corpuscular Hemoglobin 31.1 Mean Corpuscular Hemoglobin Concent 34.3 Red Cell Distribution Width 17.0 Platelet Count 99 Mean Platelet Volume 10.2 Neutrophils (%) (Auto) 78.8 Lymphocytes (%) (Auto) 7.0 Monocytes (%) (Auto) 9.4 Eosinophils (%) (Auto) 3.7 Basophils (%) (Auto) 1.1 Neutrophils # (Auto) 4.1 Lymphocytes # (Auto) 0.4 Monocytes # (Auto) 0.5 Eosinophils # (Auto) 0.2 Basophils # (Auto) 0.1 CBC Comment AUTO DIFF Differential Total Cells Counted 100 Neutrophils % (Manual) 73 Band Neutrophils % 10 Lymphocytes % 6 Monocytes % 7 Eosinophils % 4 Neutrophils # (Manual) 4.3 Differential Comment FINAL DIFF MANUAL Platelet Estimate LOW Platelet Morphology Comment NORMAL Ovalocytes 1+ Prothrombin Time 20.6 Prothromb Time International Ratio 2.0 Activated Partial Thromboplast Time 36.9 Blood Urea Nitrogen 21 Creatinine 1.27 Random Glucose 136 Calcium Level 9.2 Sodium Level 136 Potassium Level 2.7 Chloride Level 97 Carbon Dioxide Level 33.0 Anion Gap 6 Estimat Glomerular Filtration Rate 54 Result Diagram: 08/27/1782408/27/1725 Assessment and Plan Assessment and Plan Assessment: 87-year-old male with severe symptomatic aortic stenosis now postop day 0 status post transcatheter aortic valve replacement, located by gross hematuria after López catheter placement, and transient hemodynamic instability with placement of new aortic valve and the left ventricular outflow tract. From hematuria standpoint, urology is been consulted and recommends López on traction and continue CBI overnight. We will trend serial hemoglobins. Patient will still need to be on Plavix for his new valve, and ultimately will need to be on full dose endocrine ablation for his atrial fibrillation. We'll keep in ICU and monitor very closely. s/p TAVR with iliac access 08/27 - frequent neurovascular checks - plavix. - mivf - tighter blood pressure control, 100 - 160 sbp. - hydralazine as needed. hematuria - continue cbi - urology consulted - serial h&h - lópez on traction - still requires antiplatelet therapy, and will require full-dose anticoagulation for afib at some point. atrial fibrillation - currently rate controlled - will need therapeutic anticoagulation, will hold for now given hematuria - daily coags supratherapeutic INR coumadin coagulopathy - s/p vit k and 2 units ffp - daily coags - once hematuria resolved, will need full dose anticoagulation hypertension - goal sbp 100 - 160 - start home antihypertensives as needed - hydralazine prn hyperlipidemia - home statin diabetes - insulin drip tonight, converting to SSI tomorrow. Diastolic Dysfunction Congestive heart failure with preserved EF - mivf - careful monitoring of volume status. remain in ICU. Critical care medicine will continue to follow patient while they remain in CVICU. Michi Allen MD Aug 27, 2017 16:56
[2017-08-27] MEDS ORDERED: POLYETHYLENE GLYCOL 17 GM PKG PO PRN (17:00)
[2017-08-27 17:07] LABS: HEMATOCRIT 30.5 % (39.0-51.0); HEMOGLOBIN 10.4 GM/DL (13.0-17.0); MEAN CELL VOLUME 91.3 FL (80.0-100.0); MEAN CORPUSCULAR HEMOGLOBIN 31.1 PG (27.0-34.0); MEAN PLATELET VOLUME 9.8 FL (7.0-11.0); PLATELET COUNT 72 TH/MM3 (150-450); RED BLOOD COUNT 3.34 MIL/MM3 (4.50-5.90); RED CELL DISTRIBUTION WIDTH 17.1 % (11.6-17.2)
[2017-08-27] MEDS: hydrALAZINE HCL 20 MG/ML VIAL IV PUSH PRN (17:12)
[2017-08-27] MEDS ORDERED: CLOPIDOGREL 300 MG TAB PO ONE (17:30)
[2017-08-27 19:05] LABS: PROTHROMBIN TIME - PATIENT 19.9 SEC (9.8-11.6)
[2017-08-27] MEDS ORDERED: ATORVASTATIN 40 MG TAB PO SCH (21:00)
--- NOTE | 2017-08-27 21:02 | PD.CONS ---
HPI Service Urology Consult Requested By Dr Allen Reason for Consult Hematuria Primary Care Physician No Primary Care Physician Diagnosis: (1) Hematuria ICD Code: R31.9 - Hematuria, unspecified (2) Aortic stenosis, severe ICD Code: I35.0 - Nonrheumatic aortic (valve) stenosis History of Present Illness 87-year-old male with a history of severe symptomatic aortic stenosis, atrial fibrillation, diastolic dysfunction, benign prostatic hypertrophy, kidney stones who presents for elective transcatheter aortic valve replacement. Intraoperatively, his procedure was complicated by hematuria after 16 [place]ien López catheter placement. This hematuria and clots obstructed the López catheter. Urology was called and recommended replacing with a larger 3-way López catheter and start CBI which was done by surgical team. Surgery was uneventful otherwise Pt was seen at the time when he was transferred to cardiac recovery floor post/ op. No acute distress. Catheter is in place and on traction, CBI was running at 1 drop/sec. Urine is almost clear, light pink. no clots seen but as per nurse they saw a small clot in the bag when pt came to the floor from OR. He is still recovering from anesthesia but able to answer questions. He said that had TURP 5 -6y/a by Dr Sandy who is retired now and currently being followed by [facility] Dr Dhaliwal. He states that after surgery he voids well with no difficulties. he denies h/o Prostate cancer or radiation to the pelvic area. Admits that due to his still large prostate he gets occasional hematuria. No other Gu c/o Review of Systems Except as stated in HPI: all other systems reviewed are Neg Past Family Social History Past Medical History 1. Anemia. 2. Aortic stenosis. 3. Atrial fibrillation. 4. Nephrolithiasis. 5. Congestive heart failure. 6. Coronary artery disease with prior percutaneous intervention. Past Surgical History see cardiology note Allergies: Coded Allergies: niacin (Verified Allergy, Unknown, 08/27/17) sitagliptin (Unverified Adverse Reaction, Severe, STOMACH PAIN, 08/27/17) Family History Denies any family history of early coronary artery disease or sudden cardiac . Social History Denies any alcohol but does report prior tobacco use. No drug use Physical Exam Vital Signs Date Time Temp Pulse Resp B/P (MAP) Pulse Ox O2 Delivery O2 Flow Rate FiO2 08/27/17 16:47 98.6 08/27/17 15:30 73 2/7/18 15:15 93.8 73 14 141/70 (93) 99 08/27/17 11:40 97.5 61 17 129/76 100 08/27/17 08:29 97.5 85 18 148/87 (107) 100 Physical Exam GENERAL: This is a well-nourished, well-developed patient, in no apparent distress. SKIN: No rashes, ecchymoses or lesions. Cool and dry. HEAD: Atraumatic. Normocephalic. No temporal or scalp tenderness. EYES: Pupils equal round and reactive. Extraocular motions intact. No scleral icterus. No injection or drainage. ENT: Nose without bleeding, purulent drainage or septal hematoma. Throat without erythema, tonsillar hypertrophy or exudate. Uvula midline. Airway patent. NECK: Trachea midline. No JVD or lymphadenopathy. Supple, nontender, no meningeal signs. CARDIOVASCULAR: Regular rate and rhythm without murmurs, gallops, or rubs. RESPIRATORY: Clear to auscultation. Breath sounds equal bilaterally. No wheezes , rales, or rhonchi. GASTROINTESTINAL: Abdomen soft, non-tender, nondistended. No hepato-splenomegaly , or palpable masses. No guarding. GENITOURINARY: 3 way lópez catheter in place draining well, CBI attached and running. no abnormal findings at genital area MUSCULOSKELETAL: Extremities without clubbing, cyanosis, or edema. No joint tenderness, effusion, or edema noted. No calf tenderness. Negative Homans sign bilaterally. NEUROLOGICAL: Awake and alert. Cranial nerves II through XII intact. Motor and sensory grossly within normal limits. Five out of 5 muscle strength in all muscle groups. Normal speech. Lab results reviewed: Yes Laboratory Tests Test 08/27/17 08:25 08/27/17 16:45 08/27/17 17:58 White Blood Count 5.2 4.0 Red Blood Count 3.81 3.34 Hemoglobin 11.8 10.4 Hematocrit 34.5 30.5 Mean Corpuscular Volume 90.6 91.3 Mean Corpuscular Hemoglobin 31.1 31.1 Mean Corpuscular Hemoglobin Concent 34.3 34.0 Red Cell Distribution Width 17.0 17.1 Platelet Count 99 72 Mean Platelet Volume 10.2 9.8 Neutrophils (%) (Auto) 78.8 Lymphocytes (%) (Auto) 7.0 Monocytes (%) (Auto) 9.4 Eosinophils (%) (Auto) 3.7 Basophils (%) (Auto) 1.1 Neutrophils # (Auto) 4.1 Lymphocytes # (Auto) 0.4 Monocytes # (Auto) 0.5 Eosinophils # (Auto) 0.2 Basophils # (Auto) 0.1 CBC Comment AUTO DIFF Differential Total Cells Counted 100 Neutrophils % (Manual) 73 Band Neutrophils % 10 Lymphocytes % 6 Monocytes % 7 Eosinophils % 4 Neutrophils # (Manual) 4.3 Differential Comment FINAL DIFF MANUAL Platelet Estimate LOW Platelet Morphology Comment NORMAL Ovalocytes 1+ Prothrombin Time 20.6 19.9 Prothromb Time International Ratio 2.0 2.0 Activated Partial Thromboplast Time 36.9 33.8 Blood Urea Nitrogen 21 Creatinine 1.27 Random Glucose 136 Calcium Level 9.2 Sodium Level 136 Potassium Level 2.7 Chloride Level 97 Carbon Dioxide Level 33.0 Anion Gap 6 Estimat Glomerular Filtration Rate 54 Result Diagram: 08/27/17 1645 08/27/17 0825 Assessment and Plan Assessment and Plan - Continue care as per cardiac team -Keep lópez and CBI with current dripping rate overnight -Monitor I&O -No additional acute intervention needed -If no issues with lópez and CBI overnight, CBI can be clamped at early AM and if by noon his hematuria is not worsening, disconnect CBI - Keep lópez catheter as needed by primary team after above is done - Pt to follow up with Dr Dhaliwal as outpt after discharge Discussed Condition With With Dr Chelsey HERZOG attending who also agrees with this plan Farhad Reno Aug 27, 2017 21:02
[2017-08-27] MEDS: FERROUS SULFATE 325 MG (65 MG ELEMENTAL IRON) TAB PO SCH (21:37)
[2017-08-27] MEDS: ALLOPURINOL 100 MG TAB PO SCH (21:37)
[2017-08-27] MEDS ORDERED: MAGNESIUM SULFATE INJ 4 GM in SODIUM CHLORIDE 0.9% INJ 92 ML IV PRN (22:00)
[2017-08-27] MEDS ORDERED: POTASSIUM CHLOR 20 MEQ PREMIX 100 ML IV PRN ×2 (22:00)
[2017-08-27] MEDS ORDERED: MAGNESIUM SULFATE INJ 2 GM in SODIUM CHLORIDE 0.9% INJ 96 ML IV PRN (22:00)
[2017-08-27] MEDS ORDERED: POTASSIUM PHOSPHATE INJ 30 MMOL in SODIUM CHLOR 0.9% 250 ML INJ 250 ML IV PRN (22:00)
[2017-08-27] MEDS ORDERED: POTASSIUM CHLORIDE 25 MEQ EFFERVESCENT TAB PO PRN (22:00)
[2017-08-27] MEDS ORDERED: POTASSIUM PHOSPHATE MONOBASIC 500 MG TAB PO PRN (22:00)
[2017-08-27] MEDS ORDERED: MAGNESIUM OXIDE 400 MG TAB PO PRN (22:00)
[2017-08-27] MEDS ORDERED: POTASSIUM PHOSPHATE MONOBASIC 500 MG TAB PO/TUBE PRN (22:00)
[2017-08-27] MEDS ORDERED: POTASSIUM CHLOR 40 MEQ PREMIX 100 ML IV PRN ×2 (22:00)
[2017-08-27] MEDS ORDERED: SODIUM PHOSPHATE INJ 30 MMOL in SODIUM CHLOR 0.9% 250 ML INJ 240 ML IV PRN (22:00)
[2017-08-27] MEDS ORDERED: MELATONIN 5 MG TAB PO PRN (22:30)
[2017-08-28 03:10] VITALS: BP_SYST 145; BP_SYST 147; BP_DIAS 42; BP_DIAS 68; PULSE 85; PULSE 89; RESP 15; TEMP 98; O2SAT 97
[2017-08-28 04:33] LABS: HEMATOCRIT 29.3 % (39.0-51.0); MEAN CELL VOLUME 91.3 FL (80.0-100.0); MEAN CORPUSCULAR HEMOGLOBIN 31.3 PG (27.0-34.0); MEAN CORPUSCULAR HGB CONC 34.2 % (32.0-36.0); MEAN PLATELET VOLUME 10.2 FL (7.0-11.0); PLATELET COUNT 77 TH/MM3 (150-450); RED BLOOD COUNT 3.21 MIL/MM3 (4.50-5.90); RED CELL DISTRIBUTION WIDTH 17.3 % (11.6-17.2); WHITE BLOOD COUNT 7.4 TH/MM3 (4.0-11.0)
[2017-08-28 04:37] LABS: INTERNATIONAL NORMALIZED RATIO 1.7 RATIO; PROTHROMBIN TIME - PATIENT 16.7 SEC (9.8-11.6)
[2017-08-28 04:54] LABS: CALCIUM 8.2 MG/DL (8.5-10.1); CREATININE 1.12 MG/DL (0.60-1.30)
--- NOTE | 2017-08-28 05:40 | MA ---
cc: DEKHOA DATE 08/27/2017 PROCEDURE Transcatheter aortic valve replacement. OFFSET ASSISTANT PRESS OPERATOR Khoa Michael MD [facility] PRIMARY SURGEON Dr. Amy Calle SECOND SURGEON Dr. Jodi Verdin PROCEDURE PERFORMED 1. Fluoroscopy with interpretation. 2. Ascending aortography. 3. Aortic balloon valvuloplasty. 4. Transcatheter aortic valve replacement. METHOD The risks, benefits and alternatives were discussed with the patient. The patient understood and consented to the procedure. The patient was brought into the catheterization lab, placed on the catheterization table. Bilateral groins were prepped and draped in a sterile fashion. The patient was placed under general anesthesia, intubation tube placed. Right jugular vein was accessed and a balloon-tipped pacemaker was advanced to the right ventricular apex. Appropriate capture was confirmed and a backup rate of 60 beats per minute was utilized. Access was obtained with a 4-Burmese sheath to the left common femoral vein, access with a 5-Burmese, 11-cm sheath was accessed under fluoroscopic guidance to the left common femoral artery. The right common femoral artery was accessed with a micropuncture sheath and under angiographic and fluoroscopic guidance the right common femoral was accessed. It was predilated with an 8-Burmese, followed by a 10-Burmese, followed by a 16-Burmese Mckeon sheath and dilator removed. ASCENDING AORTOGRAPHY Ascending aortography was performed in the operative view to visualize all three aortic valve leaflets. View obtained was SPANISH 4 and caudal 10. Aortography revealed parallel line up with the cusps and good visualization. The ascending aorta was not significantly dilated. Both left main and right coronary were visualized. LEFT HEART CATHETERIZATION An AL-1 catheter was advanced to left femoral venous sheath to the level of the ascending aorta. An Amplatz straight-tipped wire was then navigated across the aortic valve, the AL-1 catheter advanced into the left ventricle and a 0.035 inch standard J-wire, 260 cm, was advanced into the left ventricle. Angled 5-Burmese pigtail catheter was advanced into the left ventricle. Intraventricular hemodynamics revealed left ventricular end-diastolic pressure of 20 mmHg. AORTIC ROOM BALLOON VALVULOPLASTY A [employer] Conf[employer] wire was then advanced through the pigtail catheter into the left ventricle and the pigtail catheter removed. A 23-mm Mckeon aortic valvuloplasty balloon was then advanced over wire. Under rapid pacing and ventilatory hold, the valvuloplasty balloon was deployed. Repeat transesophageal echocardiogram revealed moderate aortic insufficiency. Repeat aortography showed moderate to severe aortic valve insufficiency. The Mckeon aortic valve was quickly prepped. TRANSCATHETER AORTIC VALVE REPLACEMENT Through the right Mckeon 16-Burmese sheath, the Mckeon valve was then advanced to the level of the thoracic aorta. The balloon was pulled back into the stent and the stent navigated over the arch with flexion across the aortic valve. At this point the patient was rather hypotensive secondary to what looked like decompensation due to the severe aortic regurgitation. After confirming appropriate placement of the prosthetic valve, the valve was successfully deployed under rapid pacing. Immediately following device deployment the patient was hypotensive for approximately 1 minute until a pressor was administered. The patient then had some rebound hypertension but seemed to do well. A multipurpose catheter was advanced to the ascending aorta, confirmed that both coronaries were widely patent. A transesophageal echocardiogram post-deployment intraoperatively recorded and a post-aortic valve area of 2.2 cm2 with a post-implant mean aortic valve gradient of 5 mmHg and a post-implant peak velocity of 167 cm/second. There was noted to be trace aortic insufficiency due to trace paravalvular leak. Heparin was administered throughout the entire procedure to maintain appropriate anticoagulation. CONCLUSIONS 1. Severe aortic stenosis. 2. Successful aortic balloon valvuloplasty. 3. Successful transcatheter aortic valve replacement with a 26-mm RAJ 3 prosthetic valve. PLAN 1. The patient will be monitored closely for any post-procedural complications. Both groins were closed with good hemostasis after Perclose of bilateral arteries with a manual hold on the left femoral vein. Temporary transvenous pacer was left in placed. 2. We will monitor his Weber catheter that had some hematuria. Urology was consulted for further recommendations. 3. We will monitor hemoglobin, but our threshold for transfusion would be less than 8 grams/dL. Khoa Michael MD SM/SSB /4:14 PM /5:02 AM
[2017-08-28] MEDS: hydrALAZINE HCL 20 MG/ML VIAL IV PUSH PRN ×2 (06:15→09:18)
[2017-08-28 07:00] VITALS: BP_SYST 147; BP_SYST 158; BP_DIAS 53; BP_DIAS 64; PULSE 91; RESP 16; TEMP 97.9; O2SAT 96
[2017-08-28 07:19] VITALS: O2SAT 97
[2017-08-28] MEDS: ALLOPURINOL 100 MG TAB PO SCH (08:06)
[2017-08-28] MEDS: FERROUS SULFATE 325 MG (65 MG ELEMENTAL IRON) TAB PO SCH (08:06)
--- NOTE | 2017-08-28 08:50 | PD.CAR.PN ---
CVT Progress Note CVT: POD #: 1 Subjective/Hospital Course: Stable overnight with no AV block Objective: Vital Signs Date Time Temp Pulse Resp B/P (MAP) Pulse Ox O2 Delivery O2 Flow Rate FiO2 08/28/17 07:19 97 21 08/28/17 03:10 89 08/28/17 03:10 98.0 89 15 147/68 (94) 97 145/42 (76) 08/28/17 03:10 85 08/27/17 23:33 86 08/27/17 23:33 84 08/27/17 23:33 97.9 86 15 116/60 (78) 97 140/39 (72) 08/27/17 20:03 99 Nasal Cannula 2.00 08/27/17 19:39 86 08/27/17 19:39 97.6 86 18 127/60 (82) 97 157/53 (87) 08/27/17 19:00 86 08/27/17 16:47 98.6 08/27/17 15:30 73 08/27/17 15:15 93.8 73 14 141/70 (93) 99 08/27/17 11:40 97.5 61 17 129/76 100 Labs: Laboratory Tests Test 08/28/17 04:12 White Blood Count 7.4 TH/MM3 (4.0-11.0) Red Blood Count 3.21 MIL/MM3 (4.50-5.90) Hemoglobin 10.0 GM/DL (13.0-17.0) Hematocrit 29.3 % (39.0-51.0) Mean Corpuscular Volume 91.3 FL (80.0-100.0) Mean Corpuscular Hemoglobin 31.3 PG (27.0-34.0) Mean Corpuscular Hemoglobin Concent 34.2 % (32.0-36.0) Red Cell Distribution Width 17.3 % (11.6-17.2) Platelet Count 77 TH/MM3 (150-450) Mean Platelet Volume 10.2 FL (7.0-11.0) Prothrombin Time 16.7 SEC (9.8-11.6) Prothromb Time International Ratio 1.7 RATIO Activated Partial Thromboplast Time 31.0 SEC (24.3-30.1) Blood Urea Nitrogen 20 MG/DL (7-18) Creatinine 1.12 MG/DL (0.60-1.30) Random Glucose 80 MG/DL (74-106) Calcium Level 8.2 MG/DL (8.5-10.1) Sodium Level 140 MEQ/L (136-145) Potassium Level 3.7 MEQ/L (3.5-5.1) Chloride Level 106 MEQ/L (98-107) Carbon Dioxide Level 26.0 MEQ/L (21.0-32.0) Anion Gap 8 MEQ/L (5-15) Estimat Glomerular Filtration Rate 62 ML/MIN (>89) Result Diagram: 08/28/1741108/28/17411 Cardiovascular: IRR Telemetry: AFIB Pulmonary: CTA GI/: NABS, NT Plan: Urology to see for disposition of Weber Should be able to go home later today if cleared from Urology. Advance diet Up to chair, ambulate Amy Calle MD Aug 28, 2017 08:50
[2017-08-28] MEDS ORDERED: FINASTERIDE 5 MG TAB PO SCH (09:00)
[2017-08-28] MEDS ORDERED: CLOPIDOGREL 75 MG TAB PO SCH (09:00)
[2017-08-28] MEDS ORDERED: ASPIRIN 81 MG CHEW TAB PO SCH (09:00)
--- NOTE | 2017-08-28 09:42 | PD.CARD.PN ---
Subjective Subjective Remarks doing well this am groins c/d/i no arrhythmia sitting up to chair with at bedside Objective Medications Current Medications Medications (Trade) Dose Ordered Sig/Nella Route Start Time Stop Time Status Last Admin (Lopressor) 25 mg BINDERY TECHNICIAN PRN PO 08/27/17 08:15 08/30/17 08:14 (Betadine 5% Antisepsis Kit) 1 applic BINDERY TECHNICIAN PRN EACH NARE 08/27/17 08:15 08/30/17 08:14 08/27/17 11:39 (Chlorhexidine 2% Cloth) 3 pack BINDERY TECHNICIAN PRN TOPICAL 08/27/17 08:15 08/30/17 08:14 (NovoLIN R INJ) See Protocol Table ... BINDERY TECHNICIAN PRN SQ 08/27/17 08:15 08/30/17 08:14 Cefazolin Sodium/ Dextrose 50 ml @ 100 mls/hr BINDERY TECHNICIAN PRN IV 08/27/17 08:15 08/30/17 08:14 08/27/17 12:45 (Betadine 5% Antisepsis Kit) 1 applic BINDERY TECHNICIAN PRN EACH NARE 08/27/17 08:15 08/30/17 08:14 (Bactroban Nasal 2% Oint) 1 applic BINDERY TECHNICIAN PRN EACH NARE 08/27/17 08:15 08/30/17 08:14 (Chlorhexidine 2% Cloth) 3 pack BINDERY TECHNICIAN PRN TOPICAL 08/27/17 08:15 08/30/17 08:14 08/27/17 11:39 (Aspirin) 325 mg BINDERY TECHNICIAN PO 08/27/17 08:15 08/30/17 08:14 08/27/17 08:55 Insulin Human Regular 100 units/ Sodium Chloride 100 ml @ 3 mls/hr TITRATE PRN IV 08/27/17 16:00 08/27/17 17:09 (Aspirin Chew) 81 mg DAILY PO 08/28/17 09:00 08/28/17 08:06 (Plavix) 75 mg DAILY PO 08/28/17 09:00 08/28/17 08:06 (D50w (Vial) Inj) 50 ml UNSCH PRN IV PUSH 08/27/17 16:15 (Glucagon Inj) 1 mg UNSCH PRN OTHER 08/27/17 16:15 (Apresoline Inj) 10 mg Q30M PRN IV PUSH 08/27/17 16:15 08/28/17 09:18 (Ferrous Sulfate) 325 mg BID PO 08/27/17 21:00 08/28/17 08:06 (Zyloprim) 100 mg BID PO 08/27/17 21:00 08/28/17 08:06 (Lipitor) 40 mg HS PO 08/27/17 21:00 08/27/17 21:37 (Proscar) 5 mg DAILY PO 08/28/17 09:00 08/28/17 08:06 (Miralax) 17 gm DAILY PRN PO 08/27/17 17:00 Potassium Chloride 100 ml @ 50 mls/hr Q2H PRN IV 08/27/17 22:00 Potassium Chloride 100 ml @ 50 mls/hr Q2H PRN IV 08/27/17 22:00 (K-Lyte Cl Eff) 50 meq UNSCH PRN PO 08/27/17 22:00 Potassium Chloride 100 ml @ 25 mls/hr UNSCH PRN IV 08/27/17 22:00 08/27/17 22:18 Potassium Chloride 100 ml @ 50 mls/hr Q2H PRN IV 08/27/17 22:00 Magnesium Sulfate 4 gm/Sodium Chloride 100 ml @ 50 mls/hr UNSCH PRN IV 08/27/17 22:00 (Mag-Ox) 800 mg UNSCH PRN PO 08/27/17 22:00 Magnesium Sulfate 2 gm/Sodium Chloride 100 ml @ 50 mls/hr UNSCH PRN IV 08/27/17 22:00 (K-Phos) 2,000 mg Q4H PRN PO 08/27/17 22:00 Sodium Phosphate 30 mmol/Sodium Chloride 250 ml @ 42 mls/hr UNSCH PRN IV 08/27/17 22:00 (K-Phos) 2,000 mg UNSCH PRN PO/TUBE 08/27/17 22:00 Potassium Phosphate 30 mmol/ Sodium Chloride 260 ml @ 42 mls/hr UNSCH PRN IV 08/27/17 22:00 (Melatonin) 5 mg HS PRN PO 08/27/17 22:30 08/27/17 22:24 (Lasix Inj) 40 mg ONCE ONCE IV PUSH 08/28/17 09:45 08/28/17 09:46 UNV (Lopressor) 12.5 mg Q12HR PO 08/28/17 09:45 UNV (Prinivil) 10 mg DAILY PO 08/28/17 09:45 UNV Vital Signs / I&O Vital Signs Date Time Temp Pulse Resp B/P (MAP) Pulse Ox O2 Delivery O2 Flow Rate FiO2 08/28/17 07:19 97 21 08/28/17 03:10 89 08/28/17 03:10 98.0 89 15 147/68 (94) 97 145/42 (76) 08/28/17 03:10 85 08/27/17 23:33 86 08/27/17 23:33 84 08/27/17 23:33 97.9 86 15 116/60 (78) 97 140/39 (72) 08/27/17 20:03 99 Nasal Cannula 2.00 08/27/17 19:39 86 08/27/17 19:39 97.6 86 18 127/60 (82) 97 157/53 (87) 08/27/17 19:00 86 08/27/17 16:47 98.6 08/27/17 15:30 73 08/27/17 15:15 93.8 73 14 141/70 (93) 99 08/27/17 11:40 97.5 61 17 129/76 100 I/O 08/27/17 08/27/17 08/27/17 08/28/17 08/28/17 08/28/17 07:00 15:00 23:00 07:00 15:00 23:00 Intake Total 1372.3 ml 720 ml Output Total 2600 ml 1150 ml Balance -1227.7 ml -430 ml Intake Oral 620 ml IV Total 372.3 ml 100 ml Other 1000 ml Output Urine Total 2550 ml 1150 ml Estimated Blood Loss 50 ml # Bowel Movements 0 Physical Exam HEAD: Normocephalic. EYES: No scleral icterus. No injection or drainage. NECK: Supple, trachea midline. No JVD or lymphadenopathy. CARDIOVASCULAR: IR IR no murmurs RESPIRATORY: Breath sounds equal bilaterally. No accessory muscle use. GASTROINTESTINAL: Abdomen soft, non-tender, nondistended. MUSCULOSKELETAL: No cyanosis, or edema. groins c/d/i Laboratory Laboratory Tests Test 08/27/17 16:45 08/27/17 17:58 08/28/17 04:12 White Blood Count 4.0 TH/MM3 7.4 TH/MM3 Red Blood Count 3.34 MIL/MM3 3.21 MIL/MM3 Hemoglobin 10.4 GM/DL 10.0 GM/DL Hematocrit 30.5 % 29.3 % Mean Corpuscular Volume 91.3 FL 91.3 FL Mean Corpuscular Hemoglobin 31.1 PG 31.3 PG Mean Corpuscular Hemoglobin Concent 34.0 % 34.2 % Red Cell Distribution Width 17.1 % 17.3 % Platelet Count 72 TH/MM3 77 TH/MM3 Mean Platelet Volume 9.8 FL 10.2 FL Prothrombin Time 19.9 SEC 16.7 SEC Prothromb Time International Ratio 2.0 RATIO 1.7 RATIO Activated Partial Thromboplast Time 33.8 SEC 31.0 SEC Blood Urea Nitrogen 20 MG/DL Creatinine 1.12 MG/DL Random Glucose 80 MG/DL Calcium Level 8.2 MG/DL Sodium Level 140 MEQ/L Potassium Level 3.7 MEQ/L Chloride Level 106 MEQ/L Carbon Dioxide Level 26.0 MEQ/L Anion Gap 8 MEQ/L Estimat Glomerular Filtration Rate 62 ML/MIN Assessment and Plan Assessment and Plan severe aortic stenosis - status post TAVR hematuria - lópez in place. Hb stable. urology following. diastolic CHF - IVF yesterday. gentle diuresis today. Lasix IV x 1 atrial fibrillation - rate controlled. restart BB. on anticoagulation with coumadin at home. Will hold off on anticoagulation until input from urology. possible pending discharge depending upon urology issues ambulate Khoa Michael MD Aug 28, 2017 09:42
[2017-08-28] MEDS ORDERED: METOPROLOL TARTRATE 25 MG TAB PO SCH (09:45)
[2017-08-28] MEDS ORDERED: FUROSEMIDE 40 MG/4 ML VIAL IV PUSH ONE (09:45)
[2017-08-28] MEDS ORDERED: LISINOPRIL 10 MG TAB PO SCH (09:45)
[2017-08-28] MEDS ORDERED: PILL SPLITTER OTHER PRN (10:00)
[2017-08-28 11:00] VITALS: BP 136/66; PULSE 86; RESP 18; TEMP 98; O2SAT 95
[2017-08-28 12:00] VITALS: PULSE 84
--- NOTE | 2017-08-28 12:07 | ECHRPT ---
Indication: EF assessment in CHF, S/P TAVR CONCLUSIONS Normal left ventricular size. Mild concentric left ventricular hypertrophy. The left ventricular systolic function is hyperdynamic with an estimated ejection fraction in the ra nge of 65- 70%. There is abnormal septal motion. The left atrial size is moderately dilated. Status-post percutaneous aortic valve replacement. Aortic valve mean gradient is 8.4 mmHg. BP: 147 / 68 HR: 89 Rhythm: Atrial fibrillation MEASUREMENTS (Male / Female) Normal Values Technical Quality:Fair 2D ECHO LV Diastolic Diameter PLAX 5.5 cm 4.2 - 5.9 / 3.9 - 5.3 cm LV Systolic Diameter PLAX 3.7 cm IVS Diastolic Thickness 1.1 cm 0.6 - 1.0 / 0.6 - 0.9 cm LVPW Diastolic Thickness 1.1 cm 0.6 - 1.0 / 0.6 - 0.9 cm LV Relative Wall Thickness 0.4 RV Internal Dim ED PLAX 3.1 cm LA Systolic Diameter LX 4.3 cm 3.0 - 4.0 / 2.7 - 3.8 cm DOPPLER AV Peak Velocity 197.2 cm/s AV Peak Gradient 15.6 mmHg AV Mean Gradient 8.4 mmHg AV Velocity Time Integral 32.5 cm LVOT Peak Velocity 100.6 cm/s LVOT Peak Gradient 4.0 mmHg LVOT Velocity Time Integral 16.8 cm Mitral E Point Velocity 114.0 cm/s LV E' Lateral Velocity 10.7 cm/s Mitral E to LV E' Lateral Ratio 10.6 LV E' Septal Velocity 5.4 cm/s Mitral E to LV E' Septal Ratio 21.3 FINDINGS LEFT VENTRICLE Normal left ventricular size. Mild concentric left ventricular hypertrophy. The left ventricular systolic function is hyperdynamic with an estimated ejection fraction in the ra nge of 65- 70%. There is abnormal septal motion. RIGHT VENTRICLE Normal right ventricular size and systolic function. LEFT ATRIUM The left atrial size is moderately dilated. AORTIC VALVE Status-post percutaneous aortic valve replacement. Aortic valve mean gradient is 8.4 mmHg. Khoa Michael MD, FACC (Electronically Signed) Final Date:28 August 2017 12:06
[2017-08-28] MEDS ORDERED: METO25TA3 PO (13:20)
[2017-08-28] MEDS ORDERED: LISI10TA3 PO (13:20)
[2017-08-28] MEDS ORDERED: PLAV75TA29 PO (13:20)
--- NOTE | 2017-08-28 13:29 | HHI.DS ---
Discharge Summary Admission Date Aug 27, 2017 at 07:36 Discharge Date: Aug 28, 2017 Admitting Diagnosis Severe aortic stenosis Diastolic heart failure (1) Hematuria Diagnosis: Secondary ICD Codes: R31.9 - Hematuria, unspecified (2) Aortic stenosis, severe Diagnosis: Principal ICD Codes: I35.0 - Nonrheumatic aortic (valve) stenosis (3) Diastolic heart failure due to valvular disease Diagnosis: Principal ICD Codes: I50.30 - Unspecified diastolic (congestive) heart failure; I38 - Endocarditis, valve unspecified (4) Atrial fibrillation Diagnosis: Secondary ICD Codes: I48.91 - Atrial fibrillation Status: Acute Procedures Transcatheter aortic valve replacement with a 26 Mariela 3 tissue valve Balloon aortic valvuloplasty Brief History This is an 87-year-old gentleman. He follows with the [facility] and has a history of anemia, atrial fibrillation, congestive heart failure, diabetes, hyperlipidemia, hypertension. He presented for evaluation secondary to severe aortic stenosis. He has low normal ejection fraction of 50%. He has prior history of ST-elevation myocardial infarction with right coronary artery intervention. He underwent diagnostic angiogram back in July which showed branch vessel coronary artery disease managed medically. He was evaluated by the cardiothoracic surgeons, Dr. Calle and Dr. Vredin, and felt to be high risk for surgical aortic valve replacement. He is now scheduled here for today for transcatheter aortic valve replacement. PAST MEDICAL HISTORY 1. Anemia. 2. Aortic stenosis. 3. Atrial fibrillation. 4. Nephrolithiasis. 5. Congestive heart failure. 6. Coronary artery disease with prior percutaneous intervention. CBC/BMP: 08/28/17 0412 08/28/17 0412 Significant Findings Laboratory Tests Test 08/27/17 08:25 08/27/17 16:45 08/27/17 17:58 08/28/17 04:12 Red Blood Count 3.81 MIL/MM3 (4.50-5.90) 3.34 MIL/MM3 (4.50-5.90) 3.21 MIL/MM3 (4.50-5.90) Hemoglobin 11.8 GM/DL (13.0-17.0) 10.4 GM/DL (13.0-17.0) 10.0 GM/DL (13.0-17.0) Hematocrit 34.5 % (39.0-51.0) 30.5 % (39.0-51.0) 29.3 % (39.0-51.0) Platelet Count 99 TH/MM3 (150-450) 72 TH/MM3 (150-450) 77 TH/MM3 (150-450) Neutrophils (%) (Auto) 78.8 % (16.0-70.0) Lymphocytes (%) (Auto) 7.0 % (9.0-44.0) Monocytes (%) (Auto) 9.4 % (0.0-8.0) Lymphocytes # (Auto) 0.4 TH/MM3 (1.0-4.8) Neutrophils % (Manual) 73 % (16-70) Band Neutrophils % 10 % (0-6) Lymphocytes % 6 % (9-44) Platelet Estimate LOW (NORMAL) Ovalocytes 1+ (NORMAL) Prothrombin Time 20.6 SEC (9.8-11.6) 19.9 SEC (9.8-11.6) 16.7 SEC (9.8-11.6) Activated Partial Thromboplast Time 36.9 SEC (24.3-30.1) 33.8 SEC (24.3-30.1) 31.0 SEC (24.3-30.1) Blood Urea Nitrogen 21 MG/DL (7-18) 20 MG/DL (7-18) Random Glucose 136 MG/DL (74-106) Potassium Level 2.7 MEQ/L (3.5-5.1) Chloride Level 97 MEQ/L (98-107) Carbon Dioxide Level 33.0 MEQ/L (21.0-32.0) Estimat Glomerular Filtration Rate 54 ML/MIN (>89) 62 ML/MIN (>89) Red Cell Distribution Width 17.3 % (11.6-17.2) Calcium Level 8.2 MG/DL (8.5-10.1) PE at Discharge Chest - CTA COR - IRR ABD - soft, NT EXT - good pulses, no edema Hospital Course Patient underwent TAVR yesterday complicated by hematuria with Weber insertion. Urology consultation was done and he will be discharged with a Weber to follow -up soon. He has done well and will be discharged today. Pt Condition on Discharge: Good Discharge Disposition: Discharge Home Discharge Instructions DIET: Follow Instructions for: Diabetic Diet Activities you can perform: Weight Bearing as Gregory, Shower Only-No Bath Activities to avoid: Lifting/Bending, Strenuous Activity, Driving Follow up Referrals: Appointment for Follow Up @ UROLOGY Cardiology Cardiology New Medications: Clopidogrel (Plavix) 75 Mg Tab 75 MG PO DAILY for Blood Clot Prevention, #30 TAB 3 Refills Lisinopril (Lisinopril) 10 Mg Tab 10 MG PO DAILY for Blood Pressure Management, #30 TAB 3 Refills Metoprolol Tartrate (Metoprolol Tartrate) 25 Mg Tab 12.5 MG PO Q12HR for Blood Pressure Management, #60 TAB 2 Refills Continued Medications: Allopurinol (Allopurinol) 100 Mg Tab 100 MG PO BID for Gout, #30 TAB 0 Refills Aspirin (Aspirin 81 Low Dose) 81 Mg Chew 81 MG CHEW DAILY, #30 TAB Atorvastatin (Atorvastatin) 40 Mg Tab 40 MG PO HS for Cholesterol Management, #30 TAB 0 Refills Cholecalciferol (Vitamin D-1000) 1,000 Unit Tab 1000 UNITS PO DAILY for Nutritional Supplement, #1 BOTTLE 0 Refills Coenzyme Q10 (Ubidecarenone) (Co Q 10) 100 Mg-5 Unit Cap 100 MG PO DAILY Cyanocobalamin (Vitamin B-12) 1,000 Mcg Tab Unknown Dose PO TID for Nutritional Supplement, #1 BOTTLE 0 Refills Ferrous Gluconate (Ferrous Gluconate) 240 Mg (27 Mg Iron) Tab 240 MG PO DAILY for Nutritional Supplement, #30 TAB 0 Refills Finasteride (Finasteride) 5 Mg Tab 5 MG PO DAILY for Manage Prostate Problems, #30 TAB 0 Refills Do not crush. Furosemide (Furosemide) 40 Mg Tab 40 MG PO DAILY, #30 TAB 0 Refills Insulin Detemir Inj (Levemir Inj) 1,000 unit/ 10 ML Vial 28 UNITS SQ DAILY for Blood Sugar Management, VIAL 0 Refills Do not mix with any other Insulin. Magnesium Chloride (Mag-Delay) 70 Mg Magnesium Tab 500 MG PO BID, TAB 0 Refills Polyethylene Glycol 3350 Powder (Miralax Powder) 17 Gm Powd 17 GM PO DAILY PRN for CONSTIPATION, #1 CAN 0 Refills Mix and dissolve one measuring cap-ful (17 grams) in water or juice. Potassium Chloride ER (Potassium Chloride ER) 20 Meq Tab 20 MEQ PO DAILY for Electrolyte Replacement, #30 TAB 0 Refills Pyridoxine (Vitamin B-6) 100 Mg Tab 100 MG PO DAILY for Nutritional Supplement, #30 TAB 0 Refills Warfarin (Warfarin) 4 Mg Tab 4 MG PO DAILY for Blood Clot Prevention, #30 TAB 0 Refills Discontinued Medications: Captopril (Captopril) 25 Mg Tab 25 MG PO DAILY, #60 TAB 0 Refills Take 1 hr before meals. Metoprolol Succinate ER 24 HR (Toprol XL) 50 Mg Tab 50 MG PO DAILY, #30 TAB 0 Refills Amy Calle MD Aug 28, 2017 13:29
[2017-08-28] MEDS ORDERED: DEXTROSE 50% IN WATER 50 ML VIAL(D50) IV PUSH PRN (14:15)
[2017-08-28] MEDS ORDERED: GLUCAGON 1 MG/ML VIAL OTHER PRN (14:15)
[2017-08-28] MEDS ORDERED: PLEASE DISCONTINUE PREVIOUS SUPPLEMENTAL SCALE INSULIN ORDERS ONE (14:15)
--- NOTE | 2017-08-28 14:32 | HHI.PR ---
Subjective Patient symptoms today 87 y.o. male s/p aortic valve replacement yesterday and intraop hematuria. Was on CBI since surgery, urine cleared up, light pink color is in tubing. He has a [address] No clots seen, no bleeding around lópez. VS and labs are stable. He is cleared for d/c by primary team today Objective Vital Signs Vital Signs Date Time Temp Pulse Resp B/P (MAP) Pulse Ox O2 Delivery O2 Flow Rate FiO2 08/28/17 12:00 84 08/28/17 11:00 86 08/28/17 11:00 98.0 86 18 136/66 (89) 95 08/28/17 11:00 89 08/28/17 07:19 97 21 08/28/17 07:00 91 08/28/17 07:00 97.9 91 16 147/64 (91) 96 158/53 (88) 08/28/17 03:10 89 08/28/17 03:10 98.0 89 15 147/68 (94) 97 145/42 (76) 08/28/17 03:10 85 08/27/17 23:33 86 08/27/17 23:33 84 08/27/17 23:33 97.9 86 15 116/60 (78) 97 140/39 (72) 08/27/17 20:03 99 Nasal Cannula 2.00 08/27/17 19:39 86 08/27/17 19:39 97.6 86 18 127/60 (82) 97 157/53 (87) 08/27/17 19:00 86 08/27/17 16:47 98.6 08/27/17 15:30 73 08/27/17 15:15 93.8 73 14 141/70 (93) 99 Intake & Output 08/28/17 08/28/17 07:00 19:00 Intake Total 720 ml Output Total 1150 ml Balance -430 ml Intake Oral 620 ml IV Total 100 ml Output Urine Total 1150 ml # Bowel Movements 0 Result Diagram: 08/28/1741108/28/17411 Objective Remarks PE: He has some swelling and bruising at his genital area ( penis and scrotum ) related to the surgical intervention he had yesterday. Urologywise exam is normal Medications and IVs Current Medications Medications (Trade) Dose Ordered Sig/Nella Route Start Time Stop Time Status Last Admin (Lopressor) 25 mg GUNNERY/ORDNANCE OFFICER PRN PO 08/27/17 08:15 08/30/17 08:14 (Betadine 5% Antisepsis Kit) 1 applic GUNNERY/ORDNANCE OFFICER PRN EACH NARE 08/27/17 08:15 08/30/17 08:14 08/27/17 11:39 (Chlorhexidine 2% Cloth) 3 pack GUNNERY/ORDNANCE OFFICER PRN TOPICAL 08/27/17 08:15 08/30/17 08:14 (NovoLIN R INJ) See Protocol Table ... GUNNERY/ORDNANCE OFFICER PRN SQ 08/27/17 08:15 08/30/17 08:14 Cefazolin Sodium/ Dextrose 50 ml @ 100 mls/hr GUNNERY/ORDNANCE OFFICER PRN IV 08/27/17 08:15 08/30/17 08:14 08/27/17 12:45 (Betadine 5% Antisepsis Kit) 1 applic GUNNERY/ORDNANCE OFFICER PRN EACH NARE 08/27/17 08:15 08/30/17 08:14 (Bactroban Nasal 2% Oint) 1 applic GUNNERY/ORDNANCE OFFICER PRN EACH NARE 08/27/17 08:15 08/30/17 08:14 (Chlorhexidine 2% Cloth) 3 pack GUNNERY/ORDNANCE OFFICER PRN TOPICAL 08/27/17 08:15 08/30/17 08:14 08/27/17 11:39 (Aspirin) 325 mg GUNNERY/ORDNANCE OFFICER PO 08/27/17 08:15 08/30/17 08:14 08/27/17 08:55 (Aspirin Chew) 81 mg DAILY PO 08/28/17 09:00 08/28/17 08:06 (Plavix) 75 mg DAILY PO 08/28/17 09:00 08/28/17 08:06 (Apresoline Inj) 10 mg Q30M PRN IV PUSH 08/27/17 16:15 08/28/17 09:18 (Ferrous Sulfate) 325 mg BID PO 08/27/17 21:00 08/28/17 08:06 (Zyloprim) 100 mg BID PO 08/27/17 21:00 08/28/17 08:06 (Lipitor) 40 mg HS PO 08/27/17 21:00 08/27/17 21:37 (Proscar) 5 mg DAILY PO 08/28/17 09:00 08/28/17 08:06 (Miralax) 17 gm DAILY PRN PO 08/27/17 17:00 Potassium Chloride 100 ml @ 50 mls/hr Q2H PRN IV 08/27/17 22:00 Potassium Chloride 100 ml @ 50 mls/hr Q2H PRN IV 08/27/17 22:00 (K-Lyte Cl Eff) 50 meq UNSCH PRN PO 08/27/17 22:00 Potassium Chloride 100 ml @ 25 mls/hr UNSCH PRN IV 08/27/17 22:00 08/27/17 22:18 Potassium Chloride 100 ml @ 50 mls/hr Q2H PRN IV 08/27/17 22:00 Magnesium Sulfate 4 gm/Sodium Chloride 100 ml @ 50 mls/hr UNSCH PRN IV 08/27/17 22:00 (Mag-Ox) 800 mg UNSCH PRN PO 08/27/17 22:00 Magnesium Sulfate 2 gm/Sodium Chloride 100 ml @ 50 mls/hr UNSCH PRN IV 08/27/17 22:00 (K-Phos) 2,000 mg Q4H PRN PO 08/27/17 22:00 Sodium Phosphate 30 mmol/Sodium Chloride 250 ml @ 42 mls/hr UNSCH PRN IV 08/27/17 22:00 (K-Phos) 2,000 mg UNSCH PRN PO/TUBE 08/27/17 22:00 Potassium Phosphate 30 mmol/ Sodium Chloride 260 ml @ 42 mls/hr UNSCH PRN IV 08/27/17 22:00 (Melatonin) 5 mg HS PRN PO 08/27/17 22:30 08/27/17 22:24 (Lopressor) 12.5 mg Q12HR PO 08/28/17 09:45 08/28/17 10:55 (Prinivil) 10 mg DAILY PO 08/28/17 09:45 08/28/17 10:55 (Pill Splitter) 1 ea UNSCH PRN OTHER 08/28/17 10:00 (D50w (Vial) Inj) 50 ml UNSCH PRN IV PUSH 08/28/17 14:15 (Glucagon Inj) 1 mg UNSCH PRN OTHER 08/28/17 14:15 (NovoLOG SUPPLEMENTAL SCALE) 1 ACHS SLIDING SCALE SQ 08/28/17 17:00 Assessment and Plan Assessment and Plan _ From urology stand point his CBI can be stopped now - Its ok to discharge pt home with his lópez catheter -He needs to continue taking Proscar daily, which he usually does at home -López catheter care to be discussed with pt by nurse - Pt to follow up with Dr Dhaliwal as outpt after discharge on Friday09/01/17 at 8- 9AM for lópez cath removal Farhad Reno Aug 28, 2017 14:32
[2017-08-28] MEDS ORDERED: LOW DOSE INSULIN NOVOLOG SUPPLEMENTAL SCALE SQ SCH (17:00)
--- NOTE | 2017-08-28 20:26 | EKG ---
Date Performed: 08/28/2017 Time Performed: 07:07:56 PTAGE: 87 years EKG: Atrial fibrillation with PVC(s) Extensive ST-T changes are nonspecific Abnormal ECG PREVIOUS TRACING : 08/27/2017 08.36 Since the prior tracing, there has been no significant [place] DOCTOR: Dat Dee Interpretating Date/Time 08/28/2017 20:20:43
== END 2017-08-28 15:46 | disposition home or self-care (01) | DRG 267 ==
LOC: HSDI 07:36 → HDIC 07:38 → HCVI 15:30 → HCPC 08-28 12:11
PROVIDERS: ADMIT Thoracic Surgery (Cardiothoracic Vascular Surgery); ATTEND Thoracic Surgery (Cardiothoracic Vascular Surgery)
PROC: B246ZZ4 Ultrasonography of Right and Left Heart, Transesophageal (ICD-10-PCS; 2017-08-27)
PROC: 0T9B70Z Drainage of Bladder with Drainage Device, Via Natural or Artificial Opening (ICD-10-PCS; 2017-08-27)
PROC: 02RF38Z Replacement of Aortic Valve with Zooplastic Tissue, Percutaneous Approach (ICD-10-PCS; principal; 2017-08-27 11:30)
PROC: B3101ZZ Fluoroscopy of Thoracic Aorta using Low Osmolar Contrast (ICD-10-PCS; 2017-08-27 11:30)
PROC: 5A12012 Performance of Cardiac Output, Single, Manual (ICD-10-PCS; 2017-08-27 11:30)
DX: I08.3 Combined rheumatic disorders of mitral, aortic and tricuspid valves (principal); I50.30 Unspecified diastolic (congestive) heart failure; I11.0 Hypertensive heart disease with heart failure; I95.9 Hypotension, unspecified; D69.6 Thrombocytopenia, unspecified; I48.2 Chronic atrial fibrillation; D64.9 Anemia, unspecified; E11.9 Type 2 diabetes mellitus without complications; D3A.8 Other benign neuroendocrine tumors; E78.5 Hyperlipidemia, unspecified; Z87.442 Personal history of urinary calculi; I25.10 Atherosclerotic heart disease of native coronary artery without angina pectoris; Z95.5 Presence of coronary angioplasty implant and graft; Z87.891 Personal history of nicotine dependence; Z79.01 Long term (current) use of 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; N40.0 Benign prostatic hyperplasia without lower urinary tract symptoms; R31.0 Gross hematuria; I25.2 Old myocardial infarction; M88.9 Osteitis deformans of unspecified bone; R79.1 Abnormal coagulation profile; Y84.6 Urinary catheterization as the cause of abnormal reaction of the patient, or of later complication, without mention of misadventure at the time of the procedure; Y92.234 Operating room of hospital as the place of occurrence of the external cause; Z00.6 Encounter for examination for normal comparison and control in clinical research program
CPT/HCPCS: 33210; 33361; 36430; 80048; 84100; 85002; 85007; 85027; 85610; 85730; 86850; 86900; 86901; 86920; 86927; 92986; 93005; 93308; 93312; 93320; 93325; 94150; C1760; C1769; C1893; G0269; J0360; J0690; J1644; J1817; J1940; J2250; J2720; J3010; J3430; J3480; J7030; P9016; P9017

== ENCOUNTER 2017-08-28 16:09 | Emergency (ER) | payer MEDICARE, OTHER ==
[~2017-08-28] VITALS: Ht 177.8 cm; Wt 85.0 kg
[~2017-08-28 16:09] MED LIST changes: -CHOL10008 PO; +LISI10TA3 PO; -LORA1CHW2 CHEW; +METO25TA3 PO; +PLAV75TA29 PO; +VITA1000 PO
[2017-08-28] MEDS ORDERED: TETANUS/DIPHTHERIA TOXOID ADULT 0.5 ML VIAL IM ONE (16:30)
--- NOTE | 2017-08-28 17:22 | PD ---
HPI Chief Complaint: Fall Time Seen by Provider: 16:18 Travel History International Travel<30 days: No Contact w/Intl Traveler<30days: No Traveled to known affect area: No History of Present Illness HPI Patient comes to the emergency department status post mechanical fall out of a wheelchair. Patient was just discharged from the hospital after having a TAVR procedure. Patient states he went to get out of the wheelchair to pick something up off the ground when his leg got caught causing him to fall forward landing on his knees and hitting his face on the ground. Patient is on Plavix. Patient was on Coumadin up until 4 days ago. Patient denies any pain anywhere. Reports that he did bleed from both nares. Is uncertain tetanus shot is up-to-date. Denies any loss of consciousness, chest pain, shortness of breath, numbness or tingling anywhere, weakness, vomiting, headache, or neck pain. PFSH Past Medical History Hx Anticoagulant Therapy: Yes Anemia: Yes Cancer: Yes (STOMACH) Cardiac Catheterization: Yes Cardiovascular Problems: Yes High Cholesterol: Yes Coronary Artery Disease: Yes Diabetes: Yes (TYPE 2) Diminished Hearing: No Endocrine: Yes Gastrointestinal Disorders: Yes (GERD) GERD: Yes Genitourinary: Yes (HX BPH) Hepatitis: No Hiatal Hernia: Yes Hypertension: Yes Immune Disorder: No Implanted Vascular Access Dvce: Yes Musculoskeletal: No Neurologic: No Psychiatric: No Reproductive: No Respiratory: No Myocardial Infarction: Yes Thyroid Disease: No Past Surgical History Abdominal Surgery: No Body Medical Devices: CARDIAC STENT Cardiac Surgery: No Coronary Stent: Yes (x1) Ear Surgery: No Endocrine Surgery: No Eye Surgery: Yes (CATARACTSWITH LENS) Genitourinary Surgery: Yes (PROSTATE SURGERY) Oral Surgery: Yes (TONSILLECTOMY) Prostatectomy: Yes Thoracic Surgery: No Tonsillectomy: Yes Other Surgery: Yes (NASAL POLYPS) Social History Alcohol Use: No Tobacco Use: No Substance Use: No Allergies-Medications (Allergen,Severity, Reaction): Coded Allergies: niacin (Verified Allergy, Unknown, 08/28/17) sitagliptin (Unverified Adverse Reaction, Severe, STOMACH PAIN, 08/28/17) Reported Meds & Prescriptions Reported Meds & Active Scripts Active Lisinopril 10 Mg Tab 10 Mg PO DAILY Metoprolol Tartrate 25 Mg Tab 12.5 Mg PO Q12HR Plavix (Clopidogrel Bisulfate) 75 Mg Tab 75 Mg PO DAILY Reported Vitamin D-1000 (Cholecalciferol) 1,000 Unit Tab 1,000 Units PO DAILY Vitamin B-6 (Pyridoxine HCl) 100 Mg Tab 100 Mg PO DAILY Finasteride 5 Mg Tab 5 Mg PO DAILY Do not crush. Atorvastatin (Atorvastatin Calcium) 40 Mg Tab 40 Mg PO HS Miralax Powder (Polyethylene Glycol 3350 Powder) 17 Gm Powd 17 Gm PO DAILY PRN Mix and dissolve one measuring cap-ful (17 grams) in water or juice. Co Q 10 (Coenzyme Q10 (Ubidecarenone)) 100 Mg-5 Unit Cap 100 Mg PO DAILY Aspirin 81 Low Dose (Aspirin) 81 Mg Chew 81 Mg CHEW DAILY Vitamin B-12 (Cyanocobalamin) 1,000 Mcg Tab Unknown Dose PO TID Levemir Inj (Insulin Detemir) 1,000 unit/ 10 ML Vial 28 Units SQ DAILY Do not mix with any other Insulin. Potassium Chloride ER (Potassium Chloride) 20 Meq Tab 20 Meq PO DAILY Furosemide 40 Mg Tab 40 Mg PO DAILY Mag-Delay (Magnesium Chloride) 70 Mg Magnesium Tab 500 Mg PO BID Ferrous Gluconate 240 Mg (27 Mg Iron) Tab 240 Mg PO DAILY Warfarin 4 Mg Tab 4 Mg PO DAILY Allopurinol 100 Mg Tab 100 Mg PO BID Review of Systems Except as stated in HPI: all other systems reviewed are Neg Physical Exam Narrative GENERAL: Well-developed, overly nourished, in no acute distress, and non-ill appearing. SKIN: Warm and dry. Abrasion over the bridge of the naris, bilateral knees, and distal left lower leg. No foreign body noted. No crepitus. No tenderness. HEAD: Atraumatic. Normocephalic. No bony point tenderness or crepitus noted throughout the scalp and facial bones. EYES: PERRLA. EOMI. No scleral icterus. No injection or drainage. No hyphema. Corneas are clear. No foreign body noted. ENT: No nasal active bleeding, but with residual blood bilateral nares. Mucous membranes pink and moist. Posterior pharynx is nonerythematous and without blood. NECK: Trachea midline. Supple. No nuclear rigidity. No midline tenderness or crepitus present. RESPIRATORY: No accessory muscle use. No respiratory distress. Clear to auscultation. Breath sounds equal bilaterally. No reproducible pain over thoracic cavity. GASTROINTESTINAL: Abdomen soft, non-tender, nondistended. Hepatic and splenic margins not palpable. No pulsatile mass. MUSCULOSKELETAL: No obvious deformities. No clubbing. No cyanosis. No edema. Full range of motion. Pelvic stable. No midline tenderness or crepitus throughout spinal column. NEUROLOGICAL: Awake and alert. No obvious cranial nerve deficits. Motor grossly within normal limits. Normal speech. PSYCHIATRIC: Appropriate mood and affect; insight and judgment normal. Data Data Last Documented VS Vital Signs Date Time Temp Pulse Resp B/P (MAP) Pulse Ox O2 Delivery O2 Flow Rate FiO2 08/28/17 18:50 08/28/17 17:26 88 18 99 Room Air Orders Orders Wound Care (08/28/17 16:20) Tetanus/Diphtheria Tox Adult (Tetanus/Di (08/28/17 16:30) Ct Brain W/O Iv Contrast(Rout) (08/28/17 ) Ct Cerv Spine W/O Contrast (08/28/17 ) Ct Facial Bones W/O Iv Cont (08/28/17 ) Ed Discharge Order (08/28/17 18:35) [facility] Medical Decision Making Medical Screen Exam Complete: Yes Emergency Medical Condition: Yes Interpretation(s) Last Impressions Maxillofacial CT 08/28/17 0000 Signed Impressions: Service Date/Time: August 17:58 - CONCLUSION: Intact facial bones. Chronic sinusitis including a nonspecific, chronic masslike area of the left maxillary air cell. Pino Lin MD Head CT 08/28/17 0000 Signed Impressions: Service Date/Time: August 17:56 - CONCLUSION: No acute intracranial abnormality. Pino Lin MD Cervical Spine CT 08/28/17 0000 Signed Impressions: Service Date/Time: August 17:58 - CONCLUSION: Intact cervical spine. Degenerative changes as above. Pino Lin MD Differential Diagnosis Fracture, strain, intracranial hemorrhage, head injury, facial contusion, abrasions, laceration Narrative Course Patient presents with closed head injury. There was no evidence of cranial or intracranial injury noted on CT of the head and no evidence of fracture or injury to cervical spine on C-spine CT. The patient has been behaving normally and no notable altered mental status. [place] score of 15. The neurologic exam is normal. The patient is awake and aware and motor sensory exams are normal. There is no clinical evidence to support intracranial injury or bleed. The patient suffered abrasions. The abrasions are very superficial and nonrepairable. There was no evidence to suggest foreign bodies. Visual and tactile exams were unremarkable. There was no evidence of neurovascular injury as well. The patients wounds were cleaned and dressed. The patient was given signs and symptom warnings for infection, such as increasing pain, redness, swelling, associated heat, pus or fever. The patient was given instructions for timely follow up. The patient agreed with plan of care. Patient in no obvious distress upon re-evaluation. All pertinent Radiology result(s) discussed with patient/family. Patient and report the sinus mass is not new. Any questions/concerns in reference to patient diagnosis/ condition discussed and clarified prior to patient's discharge. Discussed patient with Dr. Victoria prior to discharge, who is in agreement with plan of care and disposition. Reinforced sheer importance of close follow up with patient's primary physician or primary care clinic, ENT, and his nautical instrument mechanic as previously instructed. Instructed patient to return to ED immediately, if symptoms return/worsen. Patient showed understanding of above instructions. Further instructions and recommendations were detailed in discharge paperwork. Patient ambulated without difficulty out of ED at discharge. Diagnosis Primary Impression: Closed head injury Qualified Codes: S09.90XA - Unspecified injury of head, initial encounter Additional Impressions: Epistaxis Abrasions of multiple sites Maxillary sinus mass Referrals: Moody Rutherford MD Patient Instructions: Abrasion (ED), Epistaxis (DC), Facial Contusion (ED), General Instructions, Head Injury (DC) Additional Instructions: Follow-up with your primary care physician, ENT, and nautical instrument mechanic. Keep wound dry and clean as possible using soap and water. Use Neosporin to promote healing. Return to the emergency department if symptoms get worse. Disposition: 01 DISCHARGE HOME Condition: Stable Chris Nunez Aug 28, 2017 17:22
[2017-08-28 17:26] VITALS: BP 148/67; PULSE 88; RESP 18; O2SAT 99
--- NOTE | 2017-08-28 18:19 | RADRPT ---
EXAM DATE/TIME: 08/28/2017 17:56 [facility] COMPARISON: CT BRAIN W/O CONTRAST, July 20, 2017, 0:22. INDICATIONS : Fall RADIATION DOSE: 56.35 CTDIvol (mGy) MEDICAL HISTORY : Cardiovascular disease. Hypertension. Hernia, hiatal.Diabetes,stomach cancer SURGICAL HISTORY : Coronary artery stent. Prostate nasal polyps ENCOUNTER: Initial ACUITY: 1 day PAIN SCALE: 0/10 LOCATION: cranial TECHNIQUE: Multiple contiguous axial images were obtained of the head. Using automated exposure control and adj ustment of the mA and/or kV according to patient size, radiation dose was kept as low as reasonably a chievable to obtain optimal diagnostic quality images. DICOM format image data is available electro nically for review and comparison. FINDINGS: CEREBRUM: The ventricles are normal for age. No evidence of midline shift, mass lesion, hemorrhage or acute in farction. No extra-axial fluid collections are seen. POSTERIOR FOSSA: The cerebellum and brainstem are intact. The 4th ventricle is midline. The cerebellopontine angle i s unremarkable. EXTRACRANIAL: The visualized portion of the orbits is intact. SKULL: The calvaria is intact. No evidence of skull fracture. CONCLUSION: No acute intracranial abnormality. Pino Lin MD on August 28, 2017 at 18:17 Board Certified Radiologist. This report was verified electronically.
--- NOTE | 2017-08-28 18:30 | RADRPT ---
EXAM DATE/TIME: 08/28/2017 17:58 [facility] COMPARISON: No previous studies available for comparison. INDICATIONS : Fall RADIATION DOSE: 25.78 CTDIvol (mGy) MEDICAL HISTORY : Cardiovascular disease. Hypertension. Hernia, hiatal.Diabetes,stomach cancer SURGICAL HISTORY : Coronary artery stent. Nasal polyps, prostate ENCOUNTER: Initial ACUITY: 1 day PAIN SCALE: 0/10 LOCATION: neck TECHNIQUE: Volumetric scanning of the cervical spine was performed. Multiplanar reconstructions in the sagittal, coronal and oblique axial planes were performed. Using automated exposure control and adjustment o f the mA and/or kV according to patient size, radiation dose was kept as low as reasonably achievable to obtain optimal diagnostic quality images. DICOM format image data is available electronically f or review and comparison. FINDINGS: There is no fracture or subluxation of the cervical spine. 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 There is moderate disc space narrowing at C6/C7 and mild disc space narrowing at the other levels. Mild to moderate bilateral foraminal stenosis at C6 on C7. No high-grade spinal stenosis demonstrated . Perivertebral soft tissues are within normal limits. CONCLUSION: Intact cervical spine. Degenerative changes as above. Pino Lin MD on August 28, 2017 at 18:27 Board Certified Radiologist. This report was verified electronically.
--- NOTE | 2017-08-28 18:32 | RADRPT ---
EXAM DATE/TIME: 08/28/2017 17:58 [facility] COMPARISON: CT BRAIN W/O CONTRAST, July 20, 2017, 0:22. INDICATIONS : Fall RADIATION DOSE: 26.35 CTDIvol (mGy) MEDICAL HISTORY : Cardiovascular disease. Hypertension. Hernia, hiatal.Diabetes,stomach cancer SURGICAL HISTORY : Coronary artery stent. Nasal polyps,prostae ENCOUNTER: Initial ACUITY: 1 day PAIN SCORE: 0/10 LOCATION: facial TECHNIQUE: Volumetric scanning of the facial bones was performed. Using automated exposure control and adjustme nt of the mA and/or kV according to patient size, radiation dose was kept as low as reasonably achiev able to obtain optimal diagnostic quality images. DICOM format image data is available electronicall y for review and comparison. FINDINGS: ORBITS: The orbital and infraorbital osseous structures are intact. The retroconal structures have a normal configuration. No radiopaque foreign bodies are seen. NASAL BONE: The nasal bone and maxillary spine are intact ZYGOMATIC ARCHES: Symmetric without evidence of fracture. SINUSES: The maxillary, ethmoid and frontal sinuses are intact. No air-fluid levels seen. NASAL CAVITY: Chronic leftward deviation of the nasal septum again noted. There is masslike opacification of the le ft maxillary air cell and adjacent nasal cavity, similar to the prior head CT. SOFT TISSUES: No radiopaque foreign bodies seen. No soft-tissue swelling is seen. INTRACRANIAL: No intracranial air seen. CRIBIFORM PLATE: Grossly intact. CONCLUSION: Intact facial bones. Chronic sinusitis including a nonspecific, chronic masslike area of the left max illary air cell. Pino Lin MD on August 28, 2017 at 18:28 Board Certified Radiologist. This report was verified electronically.
== END 2017-08-28 18:51 | disposition home or self-care (01) ==
LOC: NEPC 16:09
DX: S09.90XA Unspecified injury of head, initial encounter (principal); R04.0 Epistaxis; E11.9 Type 2 diabetes mellitus without complications; E78.00 Pure hypercholesterolemia, unspecified; I10 Essential (primary) hypertension; I25.10 Atherosclerotic heart disease of native coronary artery without angina pectoris; I25.2 Old myocardial infarction; W05.0XXA Fall from non-moving wheelchair, initial encounter; Y93.89 Activity, other specified; Z23 Encounter for immunization; Z79.01 Long term (current) use of 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; Z79.02 Long term (current) use of antithrombotics/antiplatelets; Z79.4 Long term (current) use of insulin
CPT/HCPCS: 70450; 70486; 72125; 90471; 90714

== ENCOUNTER 2017-09-19 05:24 | Inpatient (IN) | payer OTHER, MEDICARE ==
[~2017-09-19] VITALS: Ht 177.8 cm; Wt 88.0 kg
[2017-09-19] VITALS (10 sets, daily range): BP systolic 77–129; BP diastolic 51–62; PULSE 76–104; RESP 16–20; TEMP 98–103.1; O2SAT 94–100
[~2017-09-19 05:24] MED LIST changes: -CAPT25TA2 PO; -TOPR50TA PO
[2017-09-19] MEDS ORDERED: ACETAMINOPHEN 325 MG TAB PO ONE (05:45)
--- NOTE | 2017-09-19 05:52 | PD ---
HPI Chief Complaint: Complaint Time Seen by Provider: 05:35 Travel History International Travel<30 days: No Contact w/Intl Traveler<30days: No Traveled to known affect area: No History of Present Illness HPI 87-year-old male with history of CHF, TAVR last month, brought in by ambulance from home for evaluation of fever, dysuria, change in mental status. According to the patient's the patient has had difficulty urinating throughout the night and does not seem to be acting like himself. She noted a fever at home. Patient complains of some respiratory difficulty. He states he has had a cough that is nonproductive. He is denying abdominal pain, but states that he is having a difficult time urinating with dysuria. PFSH Past Medical History Hx Anticoagulant Therapy: Yes Anemia: Yes Cancer: Yes (STOMACH) Cardiac Catheterization: Yes Cardiovascular Problems: Yes High Cholesterol: Yes Coronary Artery Disease: Yes Diabetes: Yes (TYPE 2) Patient Takes Glucophage: No Diminished Hearing: No Endocrine: Yes Gastrointestinal Disorders: Yes (GERD) GERD: Yes Genitourinary: Yes (HX BPH) Hepatitis: No Hiatal Hernia: Yes Hypertension: Yes Immune Disorder: No Implanted Vascular Access Dvce: Yes Medical other: Yes (EDEMA ANKLES, ANEMIA) Musculoskeletal: No Neurologic: No Psychiatric: No Reproductive: No Respiratory: No Myocardial Infarction: Yes Thyroid Disease: No Past Surgical History Abdominal Surgery: No Body Medical Devices: CARDIAC STENT Cardiac Surgery: No Coronary Stent: Yes (x1) Ear Surgery: No Endocrine Surgery: No Eye Surgery: Yes (CATARACTSWITH LENS) Genitourinary Surgery: Yes (PROSTATE SURGERY) Oral Surgery: Yes (TONSILLECTOMY) Prostatectomy: Yes Thoracic Surgery: No Tonsillectomy: Yes Other Surgery: Yes (NASAL POLYPS) Social History Alcohol Use: No Tobacco Use: No Substance Use: No Allergies-Medications (Allergen,Severity, Reaction): Coded Allergies: niacin (Verified Allergy, Unknown, 09/19/17) sitagliptin (Unverified Adverse Reaction, Severe, STOMACH PAIN, 09/19/17) Reported Meds & Prescriptions Reported Meds & Active Scripts Active Lisinopril 10 Mg Tab 10 Mg PO DAILY Metoprolol Tartrate 25 Mg Tab 12.5 Mg PO Q12HR Plavix (Clopidogrel Bisulfate) 75 Mg Tab 75 Mg PO DAILY Reported Vitamin D-1000 (Cholecalciferol) 1,000 Unit Tab 1,000 Units PO DAILY Vitamin B-6 (Pyridoxine HCl) 100 Mg Tab 100 Mg PO DAILY Finasteride 5 Mg Tab 5 Mg PO DAILY Do not crush. Atorvastatin (Atorvastatin Calcium) 40 Mg Tab 40 Mg PO HS Miralax Powder (Polyethylene Glycol 3350 Powder) 17 Gm Powd 17 Gm PO DAILY PRN Mix and dissolve one measuring cap-ful (17 grams) in water or juice. Co Q 10 (Coenzyme Q10 (Ubidecarenone)) 100 Mg-5 Unit Cap 100 Mg PO DAILY Aspirin 81 Low Dose (Aspirin) 81 Mg Chew 81 Mg CHEW DAILY Vitamin B-12 (Cyanocobalamin) 1,000 Mcg Tab Unknown Dose PO TID Levemir Inj (Insulin Detemir) 1,000 unit/ 10 ML Vial 28 Units SQ DAILY Do not mix with any other Insulin. Potassium Chloride ER (Potassium Chloride) 20 Meq Tab 20 Meq PO DAILY Furosemide 40 Mg Tab 40 Mg PO DAILY Mag-Delay (Magnesium Chloride) 70 Mg Magnesium Tab 500 Mg PO BID Ferrous Gluconate 240 Mg (27 Mg Iron) Tab 240 Mg PO DAILY Warfarin 4 Mg Tab 4 Mg PO DAILY Allopurinol 100 Mg Tab 100 Mg PO BID Review of Systems Except as stated in HPI: all other systems reviewed are Neg Physical Exam Narrative GENERAL: Well-developed, well-nourished, elderly-appearing male, awake, no apparent distress. SKIN: Focused skin assessment warm/dry. Ecchymosis on abdominal wall and upper and lower extremities in various stages of healing. HEAD: Atraumatic. Normocephalic. EYES: Pupils equal and round. No scleral icterus. No injection or drainage. ENT: Mucous membranes pink and moist. NECK: Trachea midline. No JVD. No nuchal rigidity. CARDIOVASCULAR: Regular rate and rhythm. No murmur appreciated. RESPIRATORY: No accessory muscle use. Clear to auscultation. Breath sounds equal bilaterally. GASTROINTESTINAL: Abdomen soft, non-tender, nondistended. MUSCULOSKELETAL: No obvious deformities. No clubbing. No cyanosis. Moderate bilateral lower extremity edema from foot to the thigh. NEUROLOGICAL: Awake and alert. No obvious cranial nerve deficits. Motor grossly within normal limits. Normal speech. PSYCHIATRIC: Appropriate mood and affect; insight and judgment normal. Data Data Last Documented VS Vital Signs Date Time Temp Pulse Resp B/P (MAP) Pulse Ox O2 Delivery O2 Flow Rate FiO2 3/2/18 07:04 102.3 82 16 101/51 (68) 94 Room Air Orders Orders Sepsis Workup Initiated (09/19/17 ) Complete Blood Count With Diff (09/19/17 05:38) Comprehensive Metabolic Panel (09/19/17 05:38) Prothrombin Time / Inr (Pt) (09/19/17 05:38) Act Partial Throm Time (Ptt) (09/19/17 05:38) Lactic Acid Sepsis Protocol (09/19/17 05:38) Urinalysis - C+S If Indicated (09/19/17 05:38) Influenzae A/B Antigen (09/19/17 05:38) Blood Culture (09/19/17 05:38) Chest, Single Ap (09/19/17 05:38) Ecg Monitoring (09/19/17 05:38) Iv Access Insert/Monitor (09/19/17 05:38) Oximetry (09/19/17 05:38) Acetaminophen (Tylenol) (09/19/17 05:45) Ceftriaxone Inj (Rocephin Inj) (09/19/17 06:00) Urine Culture (09/19/17 05:40) Ct Abd/Pel W/O Iv Contrast (09/19/17 ) Labs Laboratory Tests Test 09/19/17 05:40 09/19/17 05:45 White Blood Count 6.1 TH/MM3 Red Blood Count 3.06 MIL/MM3 Hemoglobin 9.8 GM/DL Hematocrit 28.9 % Mean Corpuscular Volume 94.3 FL Mean Corpuscular Hemoglobin 32.1 PG Mean Corpuscular Hemoglobin Concent 34.0 % Red Cell Distribution Width 18.8 % Platelet Count 67 TH/MM3 Mean Platelet Volume 9.8 FL Neutrophils (%) (Auto) 88.9 % Lymphocytes (%) (Auto) 1.4 % Monocytes (%) (Auto) 9.3 % Eosinophils (%) (Auto) 0.1 % Basophils (%) (Auto) 0.3 % Neutrophils # (Auto) 5.4 TH/MM3 Lymphocytes # (Auto) 0.1 TH/MM3 Monocytes # (Auto) 0.6 TH/MM3 Eosinophils # (Auto) 0.0 TH/MM3 Basophils # (Auto) 0.0 TH/MM3 CBC Comment AUTO DIFF Prothrombin Time 45.7 SEC Prothromb Time International Ratio 4.6 RATIO Activated Partial Thromboplast Time 44.6 SEC Urine Color YELLOW Urine Turbidity CLOUDY Urine pH 5.5 Urine Specific [place] 1.016 Urine Protein 30 mg/dL Urine Glucose (UA) NEG mg/dL Urine Ketones NEG mg/dL Urine Occult Blood MOD Urine Nitrite NEG Urine Bilirubin NEG Urine Urobilinogen LESS THAN 2.0 MG/DL Urine Leukocyte Esterase LARGE Urine RBC 69 /hpf Urine WBC /hpf Urine WBC Clumps MANY Urine Squamous Epithelial Cells 1 /hpf Urine Renal Epithelial Cells 10 /hpf Urine Bacteria OCC /hpf Urine Hyaline Casts 9 /lpf Urine Mucus FEW /lpf Microscopic Urinalysis Comment CATH-CULTURE IND Blood Urea Nitrogen 38 MG/DL Creatinine 1.85 MG/DL Random Glucose 164 MG/DL Total Protein 7.4 GM/DL Albumin 3.3 GM/DL Calcium Level 8.9 MG/DL Alkaline Phosphatase 262 U/L Aspartate Amino Transf (AST/SGOT) 112 U/L Alanine Aminotransferase (ALT/SGPT) 66 U/L Total Bilirubin 2.1 MG/DL Sodium Level 136 MEQ/L Potassium Level 4.5 MEQ/L Chloride Level 100 MEQ/L Carbon Dioxide Level 26.3 MEQ/L Anion Gap 10 MEQ/L Estimat Glomerular Filtration Rate 35 ML/MIN Lactic Acid Level 2.3 mmol/L [facility] Medical Decision Making Medical Screen Exam Complete: Yes Emergency Medical Condition: Yes Differential Diagnosis Sepsis, UTI, pneumonia, fluid overload/pulmonary edema, bacteremia, meningitis less likely Narrative Course Initial vital signs show heart rate 104, blood pressure 1/24/58, pulse ox 97% on room air, oral temp of 103.1F. Patient was empirically given 1 g of IV Rocephin for likely UTI. IV fluids were withheld as the patient has history of CHF with recent aortic valve replacement and significant bilateral lower extremity edema. CBC: WBC 6.1, hemoglobin 9.8, hematocrit 28.9, platelets 67, neutrophils 88.9%. CMP: Lactic acid is 2.3. UA is suggestive of UTI. At approximately 7am at the end of my shift the patient was signed out to oncoming provider Dr Carter to follow up with CMP, CT abd/pelvis, and formulate a disposition. Mane Batista MD Sep 19, 2017 05:52
[2017-09-19] MEDS ORDERED: cefTRIAXone INJ 1,000 MG in SODIUM CHLORIDE 0.9% INJ 100 ML IV ONE (06:00)
[2017-09-19 06:01] LABS: AUTOMATED NEUTROPHIL # 5.4 TH/MM3 (1.8-7.7); BASOPHIL % 0.3 % (0.0-2.0); EOSINOPHIL % 0.1 % (0.0-4.0); HEMATOCRIT 28.9 % (39.0-51.0); HEMOGLOBIN 9.8 GM/DL (13.0-17.0); LYMPH % 1.4 % (9.0-44.0); LYMPHOCYTE # 0.1 TH/MM3 (1.0-4.8); MEAN CELL VOLUME 94.3 FL (80.0-100.0); MEAN CORPUSCULAR HEMOGLOBIN 32.1 PG (27.0-34.0); MEAN PLATELET VOLUME 9.8 FL (7.0-11.0); MONO % 9.3 % (0.0-8.0); MONOCYTE # 0.6 TH/MM3 (0-0.9); NEUT % 88.9 % (16.0-70.0); PLATELET COUNT 67 TH/MM3 (150-450); RED BLOOD COUNT 3.06 MIL/MM3 (4.50-5.90); RED CELL DISTRIBUTION WIDTH 18.8 % (11.6-17.2); WHITE BLOOD COUNT 6.1 TH/MM3 (4.0-11.0)
[2017-09-19 06:11] LABS: BACTERIA, URINE OCC /hpf; BILIRUBIN, URINE NEG (NEG); BLOOD, URINE MOD (NEG); GLUCOSE,URINE NEG (NEG); HYALINE CAST, URINE 9 /lpf (RARE); KETONE, URINE NEG (NEG); MUCUS URINE FEW /lpf (OCC); NITRITE,URINE NEG (NEG); PH, URINE 5.5 (5.0-8.5); RENAL EPITHELIAL CELLS 10 /hpf; SQUAMOUS EPITHELIAL CELL URINE 1 /hpf (0-5); URINE COLOR YELLOW (YELLW/STRAW); URINE LEUKOCYTE ESTERASE LARGE (NEG); WHITE BLOOD CELL CLUMPS MANY
[2017-09-19 06:18] LABS: INTERNATIONAL NORMALIZED RATIO 4.6 RATIO; PROTHROMBIN TIME - PATIENT 45.7 SEC (9.8-11.6)
[2017-09-19 06:30] LABS: ALT (GPT) 66 U/L (12-78)
[2017-09-19 06:32] LABS: ALKALINE PHOSPHATASE 262 U/L (45-117); TOTAL BILIRUBIN ADULT 2.1 MG/DL (0.2-1.0); TOTAL PROTEIN 7.4 GM/DL (6.4-8.2)
[2017-09-19 06:32] LABS: LACTIC ACID SEPSIS PROTOCOL 2.3 mmol/L (0.4-2.0)
--- NOTE | 2017-09-19 06:45 | RADRPT ---
EXAM DATE/TIME: 09/19/2017 06:10 [facility] COMPARISON: CHEST SINGLE AP, August 04, 2017, 14:31. INDICATIONS : Fever. MEDICAL HISTORY : Diabetes mellitus type II. Congestive heart failure. Hypercholesterolemia. Hypertension.Cardiovas cular disease. Hernia, hiatal. SURGICAL HISTORY : Aortic valve replacement. Coronary artery stent. Prostatectomy. ENCOUNTER: Initial ACUITY: 1 day PAIN SCORE: 0/10 LOCATION: Bilateral chest FINDINGS: The lungs are symmetrically aerated and clear. Heart valve prosthesis in place. The heart is upper limits normal size for portable technique. Both hemidiaphragms are well delineated. CONCLUSION: No infiltrates seen. Matt Bhatti MD on September 19, 2017 at 6:44 Board Certified Radiologist. This report was verified electronically.
[2017-09-19 06:53] LABS: ALBUMIN 3.3 GM/DL (3.4-5.0); AST (GOT) 112 U/L (15-37); BICARBONATE 26.3 MEQ/L (21.0-32.0); BLOOD UREA NITROGEN 38 MG/DL (7-18); CALCIUM 8.9 MG/DL (8.5-10.1); CHLORIDE 100 MEQ/L (98-107); CREATININE 1.85 MG/DL (0.60-1.30); GLOMERULAR FILTRATION RATE 35 ML/MIN (>89); GLUCOSE,RANDOM 164 MG/DL (74-106); SODIUM (NA) 136 MEQ/L (136-145)
[2017-09-19 07:09] LABS: BANDS 20 % (0-6); LYMPHOCYTES 6 % (9-44); METAMYELOCYTES 1 % (0-1); MONOCYTES 6 % (0-8); NEUTROPHIL # MANUAL DIFF 5.4 TH/MM3 (1.8-7.7); POLYS (SEG NEUTROPHILS) 67 % (16-70)
[2017-09-19 07:11] LABS: OVALOCYTES 1+ (NORMAL)
--- NOTE | 2017-09-19 07:41 | RADRPT ---
EXAM DATE/TIME: 09/19/2017 07:14 [facility] COMPARISON: No previous studies available for comparison. INDICATIONS : Dysuria. ORAL CONTRAST: No oral contrast ingested. RADIATION DOSE: 8.1 CTDIvol (mGy) MEDICAL HISTORY : Carcinoma, gastric. Hypertension. Benign prostatic hyperplasia, (BPH)Diabetes SURGICAL HISTORY : Prostatectomy. TAVR ENCOUNTER: Initial ACUITY: 1 day PAIN SCALE: 0/10 LOCATION: anterior TECHNIQUE: Volumetric scanning of the abdomen and pelvis was performed. Using automated exposure control and ad justment of the mA and/or kV according to patient size, radiation dose was kept as low as reasonably achievable to obtain optimal diagnostic quality images. DICOM format image data is available electro nically for review and comparison. FINDINGS: LOWER LUNGS: Prosthetic aortic valve is noted. Central airway disease is identified. There is no evidence of acute airspace disease. LIVER: Homogeneous density without lesion. There is no dilation of the biliary tree. Post cholecystectomy c lips are noted. SPLEEN: Normal size without lesion. PANCREAS: Within normal limits. KIDNEYS: Bilateral renal calculi and renal cysts are noted. There is no evidence of hydronephrosis. 2 large cy sts are identified the right kidney. There is a 7 cm cyst in the upper pole and a 5 cm cyst in the lo wer pole. 2 small calculi identified in the right kidney. There is a 6 mm echoes in the upper pole an d a 3 mm calculus in the lower pole. The left kidney contains 2 simple cyst measuring 2.2 and 1.8 cm. Small calculus measuring 3 mm is noted in the midpole. There is no evidence of hydronephrosis or hydroureter. ADRENAL GLANDS: Within normal limits. VASCULAR: Concentric calcified plaque is present throughout the aorta and proximal iliac vessels. There is no e vidence of aneurysm. BOWEL/MESENTERY: Scattered diverticula are identified in the colon. Anastomotic sutures identified in the small intest inal tract from prior surgery. There is no evidence of ileus, free air or intestinal fluid collection s. ABDOMINAL WALL: Within normal limits. RETROPERITONEUM: There is no lymphadenopathy. BLADDER: No wall thickening or mass. REPRODUCTIVE: The prostate gland is significantly enlarged and projects superiorly into the bladder. INGUINAL: There is no lymphadenopathy or hernia. MUSCULOSKELETAL: Lower lumbar facet arthropathy. CONCLUSION: 1. Bilateral renal calculi and simple cysts. 2. No evidence of obstructive uropathy. 3. Prostatomegaly. 4. Uncomplicated diverticulosis. 5. No acute process. Washington Parra MD on September 19, 2017 at 7:33 Board Certified Radiologist. This report was verified electronically.
--- NOTE | 2017-09-19 08:07 | PD ---
Physical Exam Date Seen by Provider: Sep 19, 2017 Narrative Care was assumed at [address] Batista pending the remainder of his workup. The patient presented with a chief complaint of weakness. He was found to have a urinary tract infection. CT scan of his abdomen and pelvis was pending. His urinary tract infection has been treated with Rocephin. Data Data Last Documented VS Vital Signs Date Time Temp Pulse Resp B/P (MAP) Pulse Ox O2 Delivery O2 Flow Rate FiO2 09/19/17 07:04 102.3 82 16 101/51 (68) 94 Room Air Orders Orders Sepsis Workup Initiated (09/19/17 ) Complete Blood Count With Diff (09/19/17 05:38) Comprehensive Metabolic Panel (09/19/17 05:38) Prothrombin Time / Inr (Pt) (09/19/17 05:38) Act Partial Throm Time (Ptt) (09/19/17 05:38) Lactic Acid Sepsis Protocol (09/19/17 05:38) Urinalysis - C+S If Indicated (09/19/17 05:38) Influenzae A/B Antigen (09/19/17 05:38) Blood Culture (09/19/17 05:38) Chest, Single Ap (09/19/17 05:38) Ecg Monitoring (09/19/17 05:38) Iv Access Insert/Monitor (09/19/17 05:38) Oximetry (09/19/17 05:38) Acetaminophen (Tylenol) (09/19/17 05:45) Ceftriaxone Inj (Rocephin Inj) (09/19/17 06:00) Urine Culture (09/19/17 05:40) Ct Abd/Pel W/O Iv Contrast (09/19/17 ) Labs Laboratory Tests Test 09/19/17 05:40 09/19/17 05:45 White Blood Count 6.1 TH/MM3 Red Blood Count 3.06 MIL/MM3 Hemoglobin 9.8 GM/DL Hematocrit 28.9 % Mean Corpuscular Volume 94.3 FL Mean Corpuscular Hemoglobin 32.1 PG Mean Corpuscular Hemoglobin Concent 34.0 % Red Cell Distribution Width 18.8 % Platelet Count 67 TH/MM3 Mean Platelet Volume 9.8 FL Neutrophils (%) (Auto) 88.9 % Lymphocytes (%) (Auto) 1.4 % Monocytes (%) (Auto) 9.3 % Eosinophils (%) (Auto) 0.1 % Basophils (%) (Auto) 0.3 % Neutrophils # (Auto) 5.4 TH/MM3 Lymphocytes # (Auto) 0.1 TH/MM3 Monocytes # (Auto) 0.6 TH/MM3 Eosinophils # (Auto) 0.0 TH/MM3 Basophils # (Auto) 0.0 TH/MM3 CBC Comment AUTO DIFF Differential Total Cells Counted 100 Neutrophils % (Manual) 67 % Band Neutrophils % 20 % Lymphocytes % 6 % Monocytes % 6 % Neutrophils # (Manual) 5.4 TH/MM3 Metamyelocytes 1 % Differential Comment FINAL DIFF MANUAL Platelet Estimate LOW Platelet Morphology Comment NORMAL Ovalocytes 1+ Prothrombin Time 45.7 SEC Prothromb Time International Ratio 4.6 RATIO Activated Partial Thromboplast Time 44.6 SEC Urine Color YELLOW Urine Turbidity CLOUDY Urine pH 5.5 Urine Specific [place] 1.016 Urine Protein 30 mg/dL Urine Glucose (UA) NEG mg/dL Urine Ketones NEG mg/dL Urine Occult Blood MOD Urine Nitrite NEG Urine Bilirubin NEG Urine Urobilinogen LESS THAN 2.0 MG/DL Urine Leukocyte Esterase LARGE Urine RBC 69 /hpf Urine WBC /hpf Urine WBC Clumps MANY Urine Squamous Epithelial Cells 1 /hpf Urine Renal Epithelial Cells 10 /hpf Urine Bacteria OCC /hpf Urine Hyaline Casts 9 /lpf Urine Mucus FEW /lpf Microscopic Urinalysis Comment CATH-CULTURE IND Blood Urea Nitrogen 38 MG/DL Creatinine 1.85 MG/DL Random Glucose 164 MG/DL Total Protein 7.4 GM/DL Albumin 3.3 GM/DL Calcium Level 8.9 MG/DL Alkaline Phosphatase 262 U/L Aspartate Amino Transf (AST/SGOT) 112 U/L Alanine Aminotransferase (ALT/SGPT) 66 U/L Total Bilirubin 2.1 MG/DL Sodium Level 136 MEQ/L Potassium Level 4.5 MEQ/L Chloride Level 100 MEQ/L Carbon Dioxide Level 26.3 MEQ/L Anion Gap 10 MEQ/L Estimat Glomerular Filtration Rate 35 ML/MIN Lactic Acid Level 2.3 mmol/L MDM Supervised Visit with MARIA D: No Narrative Course CBC & BMP Diagram 09/19/17 05:40 Total Protein 7.4, Albumin 3.3 L, Calcium Level 8.9, Alkaline Phosphatase 262 H , Aspartate Amino Transf (AST/SGOT) 112 H, Alanine Aminotransferase (ALT/SGPT) 66, Total Bilirubin 2.1 H LA 2.3 INR 4.6 UA>>large LE, 69 RBCs, TNTC WBCs, many WBC clumps, occ bact Patient's reports that he is so weak that she is unable to assist him out of the chair use the restroom. He will be admitted to 23 [facility]. Sepsis Criteria SIRS Criteria (2 or more): Temp > 100.9 or < 96.8, Heart rate over 90 Sepsis Criteria (SIRS+source): Infect source susp/known Severe Sepsis (+one): Lactate >2 Criteria Outcome: Meets SIRS criteria, Meets sepsis criteria, Meets severe sepsis criteria Diagnosis Primary Impression: Prerenal azotemia Additional Impressions: Urinary tract infection Qualified Codes: N30.00 - Acute cystitis without hematuria Sepsis Qualified Codes: A41.9 - Sepsis, unspecified organism Condition: Stable Soumya Carter MD Sep 19, 2017 08:06
[2017-09-19] MEDS ORDERED: SODIUM CHLOR 0.9% 1000 ML INJ 1,000 ML IV ONE ×2 (08:15→12:00)
[2017-09-19] MEDS ORDERED: SENNOSIDES 8.6 MG TAB PO PRN (09:00)
[2017-09-19] MEDS ORDERED: oxyCODONE/ACETAMINOPHEN 10 MG/325 MG TAB PO PRN (09:00)
[2017-09-19] MEDS ORDERED: BISACODYL 10 MG SUPP RECTAL PRN (09:00)
[2017-09-19] MEDS ORDERED: ONDANSETRON HCL 4 MG/2 ML VIAL IVP PRN (09:00)
[2017-09-19] MEDS ORDERED: VANCOMYCIN INJ 1,000 MG in SODIUM CHLOR 0.9% 250 ML INJ 250 ML IV ONE (09:00)
[2017-09-19] MEDS ORDERED: ACETAMINOPHEN 325 MG TAB PO PRN ×2 (09:00)
[2017-09-19] MEDS: SODIUM CHLORIDE 0.9% FLUSH 10 ML FLUSH IV FLUSH SCH ×2 (09:00→20:34)
[2017-09-19] MEDS ORDERED: GLUCAGON 1 MG/ML VIAL OTHER PRN (09:00)
[2017-09-19] MEDS ORDERED: SODIUM CHLORIDE 0.9% FLUSH 10 ML FLUSH IV FLUSH SCH (09:00)
[2017-09-19] MEDS ORDERED: NON-FORMULARY DRUG (Coenzyme Q10 (Ubidecarenone) (Co Q 10) 100 MG) PO SCH (09:00)
[2017-09-19] MEDS ORDERED: METOCLOPRAMIDE HCL 10 MG/2 ML VIAL IV PUSH PRN (09:00)
[2017-09-19] MEDS ORDERED: LACTULOSE SYRUP 20 GM/30 ML CUP PO PRN (09:00)
[2017-09-19] MEDS ORDERED: SODIUM CHLORIDE 0.9% FLUSH 10 ML FLUSH IV FLUSH PRN ×2 (09:00)
[2017-09-19] MEDS ORDERED: MAGNESIUM HYDROXIDE SUSP 30 ML CUP PO PRN (09:00)
[2017-09-19] MEDS ORDERED: oxyCODONE/ACETAMINOPHEN 5 MG/325 MG TAB PO PRN (09:00)
[2017-09-19] MEDS ORDERED: Vancomycin Consult Pharmacy 1 EA OTHER SCH (09:00)
[2017-09-19] MEDS ORDERED: MORPHINE SULFATE 2 MG/ML INJ IV PUSH PRN (09:00)
[2017-09-19] MEDS ORDERED: NALOXONE HCL 0.4 MG/ML AMP IV PUSH PRN (09:00)
[2017-09-19] MEDS ORDERED: POLYETHYLENE GLYCOL 17 GM PKG PO PRN (09:00)
[2017-09-19] MEDS ORDERED: FERROUS GLUCONATE 240 MG PO SCH (09:00)
[2017-09-19] MEDS ORDERED: MORPHINE SULFATE 4 MG/ML INJ IV PUSH PRN (09:00)
[2017-09-19] MEDS ORDERED: DEXTROSE 50% IN WATER 50 ML VIAL(D50) IV PUSH PRN (09:00)
--- NOTE | 2017-09-19 09:32 | HHI.HP ---
[facility] Service [facility] Primary Care Physician Unknown Admission Diagnosis urosepsis Diagnoses: Chief Complaint: fevers, dysuria and altered mental status Travel History International Travel<30 Days: No Contact w/Intl Traveler <30 Da: No Traveled to Known Affected Are: No Sepsis Criteria SIRS Criteria (2 or more): Temp > 100.9 or < 96.8, Heart rate over 90 Sepsis Criteria (SIRS+source): Infect source susp/known Severe Sepsis (+one): Hypotension Multiple Organ Dysfunction Syn: Evidence -2 organs failing Criteria Outcome: Meets severe sepsis criteria History of Present Illness Patient is a 87-year-old male who presented to the hospital with altered mental status fevers and urinary symptoms. Patient has a history of CHF , TAVR done August 27. He was brought in by ambulance after having fevers and dysuria and change in mental status at home. Per the patient's has had difficulty urinating throughout the night was not acting his normal self she noted that he did have a fever at home. Denies any real respiratory issues. Has a cough that is nonproductive denies any abdominal pain had been having difficulty urinating with dysuria. Was found in the emergency department to have a urinary tract infection, will be admitted for urinary tract infection and severe sepsis. We will continue on Rocephin and vancomycin. I will continue to follow the patient throughout the admission for any other issues that may arise Review of Systems Constitutional: COMPLAINS OF: Fatigue, Fever, Chills, DENIES: Diaphoretic episodes, Weight gain, Weight loss, Dizziness, Change in appetite, Night Sweats Endocrine: DENIES: Heat/cold intolerance, Polydipsia, Polyuria, Polyphagia Eyes: DENIES: Blurred vision, Diplopia, Eye inflammation, Eye pain, Vision loss , Photosensitivity, Double Vision Ears, nose, mouth, throat: DENIES: Tinnitus, Hearing loss, Vertigo, Nasal discharge, Oral lesions, Throat pain, Hoarseness, Ear Pain, Running Nose Respiratory: COMPLAINS OF: Cough, Shortness of breath, DENIES: Apneas, Snoring , Wheezing, Hemoptysis, Sputum production Cardiovascular: COMPLAINS OF: Lower Extremity Edema, DENIES: Chest pain, Palpitations, Syncope, Dyspnea on Exertion, PND, Orthopnea, Claudication Gastrointestinal: DENIES: Abdominal pain, Black stools, Bloody stools, Constipation, Diarrhea, Nausea, Vomiting, Difficulty Swallowing, Anorexia Genitourinary: COMPLAINS OF: Urinary frequency, Dysuria, Nocturia, DENIES: Sexual dysfunction, Urinary incontinence, Urgency, Hematuria, Penile Discharge, Testicular Pain, Testicular Swelling Musculoskeletal: DENIES: Joint pain, Muscle aches, Stiffness, Joint Swelling, Back pain, Neck pain Integumentary: DENIES: Abnormal pigmentation, Nail changes, Pruritus, Rash Hematologic/lymphatic: DENIES: Bruising, Lymphadenopathy Immunologic/allergic: DENIES: Eczema, Urticaria Neurologic: COMPLAINS OF: Poor Balance, DENIES: Abnormal gait, Headache, Localized weakness, Paresthesias, Seizures, Speech Problems, Tremor Psychiatric: COMPLAINS OF: Confusion, DENIES: Anxiety, Mood changes, Depression , Hallucinations, Agitation, Suicidal Ideation, Homicidal Ideation, Delusions Except as stated in HPI: all other systems reviewed are Neg Past Family Social History Past Medical History Recent TAVR Chronic atrial fibrillation on Coumadin History of stomach cancer Diabetes mellitus type 2 GERD History of BPH Hiatal hernia Hypertension chronic bilateral lower extremity edema Hyperlipidemia Coronary artery disease History of myocardial infarction Gout Chronic anticoagulation Past Surgical History Patient TAVR on August 27 History of cardiac stents History of cataracts bilaterally with lens implants History of prostate surgery History of tonsillectomy History of prostatectomy History of nasal polyps Reported Medications Reported Meds & Active Scripts Active Lisinopril 10 Mg Tab 10 Mg PO DAILY Metoprolol Tartrate 25 Mg Tab 12.5 Mg PO Q12HR Plavix (Clopidogrel Bisulfate) 75 Mg Tab 75 Mg PO DAILY Reported Vitamin D-1000 (Cholecalciferol) 1,000 Unit Tab 1,000 Units PO DAILY Vitamin B-6 (Pyridoxine HCl) 100 Mg Tab 100 Mg PO DAILY Finasteride 5 Mg Tab 5 Mg PO DAILY Do not crush. Atorvastatin (Atorvastatin Calcium) 40 Mg Tab 40 Mg PO HS Miralax Powder (Polyethylene Glycol 3350 Powder) 17 Gm Powd 17 Gm PO DAILY PRN Mix and dissolve one measuring cap-ful (17 grams) in water or juice. Co Q 10 (Coenzyme Q10 (Ubidecarenone)) 100 Mg-5 Unit Cap 100 Mg PO DAILY Aspirin 81 Low Dose (Aspirin) 81 Mg Chew 81 Mg CHEW DAILY Vitamin B-12 (Cyanocobalamin) 1,000 Mcg Tab Unknown Dose PO TID Levemir Inj (Insulin Detemir) 1,000 unit/ 10 ML Vial 28 Units SQ DAILY Do not mix with any other Insulin. Potassium Chloride ER (Potassium Chloride) 20 Meq Tab 20 Meq PO DAILY Furosemide 40 Mg Tab 40 Mg PO DAILY Mag-Delay (Magnesium Chloride) 70 Mg Magnesium Tab 500 Mg PO BID Ferrous Gluconate 240 Mg (27 Mg Iron) Tab 240 Mg PO DAILY Warfarin 4 Mg Tab 4 Mg PO DAILY Allopurinol 100 Mg Tab 100 Mg PO BID Allergies: Coded Allergies: niacin (Verified Allergy, Unknown, 09/19/17) sitagliptin (Unverified Adverse Reaction, Severe, STOMACH PAIN, 09/19/17) Active Ordered Medications Current Medications Acetaminophen (Tylenol) 650 mg ONCE ONCE PO Last administered on 09/19/17at 05: 54; Start 09/19/17 at 05:45; Stop 09/19/17 at 05:46; Status DC Ceftriaxone Sodium 1000 mg/ Sodium Chloride 100 ml @ 200 mls/hr ONCE ONCE IV Last administered on 09/19/17at 05:59; Start 09/19/17 at 06:00; Stop 09/19/17 at 06: 29; Status DC Sodium Chloride 1,000 ml @ 999 mls/hr BOLUS ONCE IV Last administered on at 08:29; Start 09/19/17 at 08:15; Stop 09/19/17 at 09:15; Status DC Allopurinol (Zyloprim) 100 mg BID PO ; Start 09/19/17 at 09:00; Status UNV Aspirin (Aspirin Chew) 81 mg DAILY CHEW ; Start 09/19/17 at 09:00; Status UNV Atorvastatin Calcium (Lipitor) 40 mg HS PO ; Start 09/19/17 at 21:00; Status UNV Cholecalciferol (Vitamin D3) 1,000 units DAILY PO ; Start 09/19/17 at 09:00; Status UNV Clopidogrel Bisulfate (Plavix) 75 mg DAILY PO ; Start 09/19/17 at 09:00; Status UNV Finasteride (Proscar) 5 mg DAILY PO ; Start 09/19/17 at 09:00; Status UNV Lisinopril (Prinivil) 10 mg DAILY PO ; Start 09/19/17 at 09:00; Status UNV Magnesium Chloride (Slow-Mag Dr) 500 mg BID PO ; Start 09/19/17 at 09:00; Status UNV Metoprolol Tartrate (Lopressor) 12.5 mg Q12HR PO ; Start 09/19/17 at 09:00; Status UNV Polyethylene Glycol (Miralax) 17 gm DAILY PRN PO CONSTIPATION; Start 09/19/17 at 09:00; Status UNV Potassium Chloride (KCl) 20 meq DAILY PO ; Start 09/19/17 at 09:00; Status UNV Pyridoxine HCl (Vitamin B6) 100 mg DAILY PO ; Start 09/19/17 at 09:00; Status UNV Non-Formulary Medication 100 mg DAILY PO ; Start 09/19/17 at 09:00; Status UNV Non-Formulary Medication 240 mg DAILY PO ; Start 09/19/17 at 09:00; Status UNV Sodium Chloride 1,000 ml @ 100 mls/hr Q10H IV ; Start 09/19/17 at 08:49; Status UNV Sodium Chloride (NS Flush) 2 ml UNSCH PRN IV FLUSH FLUSH AFTER USING IV ACCESS ; Start 09/19/17 at 09:00; Status UNV Sodium Chloride (NS Flush) 2 ml BID IV FLUSH ; Start 09/19/17 at 09:00; Status UNV Acetaminophen (Tylenol) 650 mg Q4H PRN PO TEMP > 100.4; Start 09/19/17 at 09:00 ; Status UNV Ondansetron HCl (Zofran Inj) 4 mg Q6H PRN IVP NAUSEA OR VOMITING; Start at 09:00; Status UNV Metoclopramide HCl (Reglan Inj) 5 mg Q6H PRN IV PUSH NAUSEA OR VOMITING; Start 09/19/17 at 09:00; Status UNV Acetaminophen (Tylenol) 650 mg Q6H PRN PO PAIN SCALE 1 TO 2; Start 09/19/17 at 09:00; Status UNV Oxycodone/ Acetaminophen (Percocet 5-325 Mg) 1 tab Q6H PRN PO PAIN SCALE 3 TO 5; Start 09/19/17 at 09:00; Status UNV Oxycodone/ Acetaminophen (Percocet 10-325 Mg) 1 tab Q6H PRN PO PAIN SCALE 6 TO 10; Start 09/19/17 at 09:00; Status UNV Morphine Sulfate (Morphine Inj) 2 mg Q3H PRN IV PUSH Pain 3-5; if unable to take PO; Start 09/19/17 at 09:00; Status UNV Morphine Sulfate (Morphine Inj) 4 mg Q3H PRN IV PUSH Pain 6-10;if unable to take PO; Start 09/19/17 at 09:00; Status UNV Naloxone HCl (Narcan Inj) 0.4 mg UNSCH PRN IV PUSH SEE LABEL COMMENTS; Start at 09:00; Status UNV Senna/Docusate Sodium (Ora-Colace) 1 tab BID PO ; Start 09/19/17 at 09:00; Status UNV Magnesium Hydroxide (Milk Of Magnesia Liq) 30 ml Q12H PRN PO Mild constipation ; Start 09/19/17 at 09:00; Status UNV Sennosides (Senokot) 17.2 mg Q12H PRN PO Moderate constipation; Start 09/19/17 at 09:00; Status UNV Bisacodyl (Dulcolax Supp) 10 mg DAILY PRN RECTAL SEVERE CONSITIPATION; Start at 09:00; Status UNV Lactulose (Lactulose Liq) 30 ml DAILY PRN PO SEVERE CONSITIPATION; Start at 09:00; Status UNV Sodium Chloride (NS Flush) 2 ml UNSCH PRN IV FLUSH FLUSH AFTER USING IV ACCESS ; Start 09/19/17 at 09:00; Status UNV Sodium Chloride (NS Flush) 2 ml BID IV FLUSH ; Start 09/19/17 at 09:00; Status UNV Vancomycin HCl 1000 mg/Sodium Chloride 250 ml @ 250 mls/hr ONCE ONCE IV ; Start 09/19/17 at 09:00; Stop 09/19/17 at 09:59; Status UNV Pharmacy Profile Note 0 ml @ 0 mls/hr UNSCH XX ; Start 09/19/17 at 09:00; Status UNV Ceftriaxone Sodium 1000 mg/ Sodium Chloride 100 ml @ 200 mls/hr Q24H IV ; Start 09/20/17 at 08:00; Status UNV Insulin Aspart (NovoLOG SUPPLEMENTAL SCALE) 1 ACHS SLIDING SCALE SQ ; Start 09/19/17 at 12:00; Status UNV Dextrose (D50w (Vial) Inj) 50 ml UNSCH PRN IV PUSH HYPOGLYCEMIA-SEE COMMENTS; Start 09/19/17 at 09:00; Status UNV Glucagon (Glucagon Inj) 1 mg UNSCH PRN OTHER HYPOGLYCEMIA-SEE COMMENTS; Start 09/19/17 at 09:00; Status UNV Family History Hypertension in the family Social History Lives with Denies any tobacco alcohol or illicit Physical Exam Vital Signs Vital Signs Date Time Temp Pulse Resp B/P (MAP) Pulse Ox O2 Delivery O2 Flow Rate FiO2 09/19/17 08:29 100.7 87 16 105/52 (69) 98 Room Air 09/19/17 07:04 102.3 82 16 101/51 (68) 94 Room Air 09/19/17 05:56 99 Room Air 09/19/17 05:31 103.1 104 20 124/58 (80) 97 Physical Exam GENERAL: This is a well-nourished, well-developed patient, in no apparent distress. Appears to be weaker and more altered than his normal status per the is all started last night SKIN: No rashes, ecchymoses or lesions. Cool and dry. HEAD: Atraumatic. Normocephalic. No temporal or scalp tenderness. EYES: Pupils equal round and reactive. Extraocular motions intact. No scleral icterus. No injection or drainage. ENT: Nose without bleeding, purulent drainage or septal hematoma. Throat without erythema, tonsillar hypertrophy or exudate. Uvula midline. Airway patent. NECK: Trachea midline. No JVD or lymphadenopathy. Supple, nontender, no meningeal signs. CARDIOVASCULAR: IRRegular rate and rhythm without gallops, or rubs. S1-S2 no S3 or S4 RESPIRATORY: Clear to auscultation. Breath sounds equal bilaterally. No wheezes , rales, or rhonchi. Decreased breath sounds bilaterally GASTROINTESTINAL: Abdomen soft, non-tender, nondistended. No hepato-splenomegaly , or palpable masses. No guarding. MUSCULOSKELETAL: Extremities without clubbing, cyanosis, positive edema +2-3 bilateral lower extremities. No joint tenderness, effusion, or edema noted. No calf tenderness. Negative Homans sign bilaterally. NEUROLOGICAL: Awake and alert. Cranial nerves II through XII intact. Motor and sensory grossly within normal limits. 4 out of 5 muscle strength in all muscle groups. Normal speech. Insight and judgment is limited at this time Mood and behavior somewhat appropriate Laboratory Laboratory Tests Test 09/19/17 05:40 09/19/17 05:45 09/19/17 08:30 White Blood Count 6.1 Red Blood Count 3.06 Hemoglobin 9.8 Hematocrit 28.9 Mean Corpuscular Volume 94.3 Mean Corpuscular Hemoglobin 32.1 Mean Corpuscular Hemoglobin Concent 34.0 Red Cell Distribution Width 18.8 Platelet Count 67 Mean Platelet Volume 9.8 Neutrophils (%) (Auto) 88.9 Lymphocytes (%) (Auto) 1.4 Monocytes (%) (Auto) 9.3 Eosinophils (%) (Auto) 0.1 Basophils (%) (Auto) 0.3 Neutrophils # (Auto) 5.4 Lymphocytes # (Auto) 0.1 Monocytes # (Auto) 0.6 Eosinophils # (Auto) 0.0 Basophils # (Auto) 0.0 CBC Comment AUTO DIFF Differential Total Cells Counted 100 Neutrophils % (Manual) 67 Band Neutrophils % 20 Lymphocytes % 6 Monocytes % 6 Neutrophils # (Manual) 5.4 Metamyelocytes 1 Differential Comment FINAL DIFF MANUAL Platelet Estimate LOW Platelet Morphology Comment NORMAL Ovalocytes 1+ Prothrombin Time 45.7 Prothromb Time International Ratio 4.6 Activated Partial Thromboplast Time 44.6 Urine Color YELLOW Urine Turbidity CLOUDY Urine pH 5.5 Urine Specific Hardin 1.016 Urine Protein 30 Urine Glucose (UA) NEG Urine Ketones NEG Urine Occult Blood MOD Urine Nitrite NEG Urine Bilirubin NEG Urine Urobilinogen LESS THAN 2.0 Urine Leukocyte Esterase LARGE Urine RBC 69 Urine WBC Urine WBC Clumps MANY Urine Squamous Epithelial Cells 1 Urine Renal Epithelial Cells 10 Urine Bacteria OCC Urine Hyaline Casts 9 Urine Mucus FEW Microscopic Urinalysis Comment CATH-CULTURE IND Blood Urea Nitrogen 38 Creatinine 1.85 Random Glucose 164 Total Protein 7.4 Albumin 3.3 Calcium Level 8.9 Alkaline Phosphatase 262 Aspartate Amino Transf (AST/SGOT) 112 Alanine Aminotransferase (ALT/SGPT) 66 Total Bilirubin 2.1 Sodium Level 136 Potassium Level 4.5 Chloride Level 100 Carbon Dioxide Level 26.3 Anion Gap 10 Estimat Glomerular Filtration Rate 35 Lactic Acid Level 2.3 2.2 Date/Time Source Procedure Growth Status 09/19/17 05:45 Blood Peripheral Aerobic Blood Culture Pending Received 09/19/17 05:45 Blood Peripheral Anaerobic Blood Culture Pending Received 09/19/17 05:40 Nasal Washing Influenza Types A,B Antigen (ALVARO) - Final NEGATIVE FOR FLU A AND B ANTIGEN.... Complete 09/19/17 05:40 Urine Catheterized Urine Urine Culture Pending Received Result Diagram: 09/19/17 0540 09/19/17 0540 Imaging Last Impressions Chest X-Ray 09/19/17 0538 Signed Impressions: Service Date/Time: Tuesday, September 19, 2017 06:10 - CONCLUSION: No infiltrates seen. Matt Bhatti MD Abdomen/Pelvis CT 09/19/17 0000 Signed Impressions: Service Date/Time: Tuesday, September 19, 2017 07:14 - CONCLUSION: 1. Bilateral renal calculi and simple cysts. 2. No evidence of obstructive uropathy. 3. Prostatomegaly. 4. Uncomplicated diverticulosis. 5. No acute process. Washington Parra MD Septic Shock Reassessment Septic shock perfusion: reassessment completed Caprini VTE Risk Assessment Caprini VTE Risk Assessment: Mod/High Risk (score >= 2) Caprini Risk Assessment Model Point Value = 1 Point Value = 2 Point Value = 3 Point Value = 5 Age 41-60 Minor surgery BMI > 25 kg/m2 Swollen legs Varicose veins or History of unexplained or recurrent spontaneous Oral contraceptives or hormone replacement Sepsis (< 1 month) Serious lung disease, including pneumonia (< 1 month) Abnormal pulmonary function Acute myocardial infarction Congestive heart failure (< 1 month) History of inflammatory bowel disease Medical patient at bed rest Age 61-74 Arthroscopic surgery Major open surgery (> 45 min) Laparoscopic surgery (> 45 min) Malignancy Confined to bed (> 72 hours) Immobilizing plaster cast Central venous access Age >= 75 History of VTE Family history of VTE Factor V Leiden Prothrombin 25350N Lupus anticoagulant Anticardiolipin antibodies Elevated serum homocysteine Heparin-induced thrombocytopenia Other congenital or acquired thrombophilia Stroke (< 1 month) Elective arthroplasty Hip, pelvis, or leg fracture Acute spinal cord injury (< 1 month) Prophylaxis Regimen Total Risk Factor Score Risk Level Prophylaxis Regimen 0-1 Low Early ambulation 2 Moderate Order ONE of the following: *Sequential Compression Device (SCD) *Heparin 5000 units SQ BID 3-4 Higher Order ONE of the following medications: *Heparin 5000 units SQ TID *Enoxaparin/Lovenox 40 mg SQ daily (WT < 150 kg, CrCl > 30 mL/min) *Enoxaparin/Lovenox 30 mg SQ daily (WT < 150 kg, CrCl > 10-29 mL/min) *Enoxaparin/Lovenox 30 mg SQ BID (WT < 150 kg, CrCl > 30 mL/min) AND/OR *Sequential Compression Device (SCD) 5 or more Highest Order ONE of the following medications: *Heparin 5000 units SQ TID (Preferred with Epidurals) *Enoxaparin/Lovenox 40 mg SQ daily (WT < 150 kg, CrCl > 30 mL/min) *Enoxaparin/Lovenox 30 mg SQ daily (WT < 150 kg, CrCl > 10-29 mL/min) *Enoxaparin/Lovenox 30 mg SQ BID (WT < 150 kg, CrCl > 30 mL/min) AND *Sequential Compression Device (SCD) Assessment and Plan Assessment and Plan Severe sepsis with urinary tract infection will start on Rocephin as well as vancomycin. Pharmacy to dose on the vancomycin. We will continue on fluid rehydration at 100 mL's per hour with his history of congestive heart Fevers continue on Tylenol Recent TAVR for aortic valve issues August 27 History of congestive heart failure monitor accurate I's and O's will give hydration for the sepsis Hypertension by history Anemia Chronic anticoagulation on Coumadin supratherapeutic at this time will hold Coumadin Altered mental status with severe sepsis and urinary tract infection and urosepsis continue on antibiotics and fluid rehydration Diabetes mellitus continue on sliding scale coverage before meals and at bedtime with diabetic diet Lactic acid increased due to sepsis we will repeat later today Gout continue home medications Hypercholesterolemia continue home medications DVT prophylaxis with Coumadin which is supratherapeutic we will hold Coumadin Daily PT/INR Anemia chronic GERD continue on home medications for GI prophylaxis AsK physical therapy to eval and treat with case management to eval and treat Daily INRs Code Status FULL CODE Discussed Condition With ER AND PATIENT AND AND RN Physician Certification 2 Midnight Certification Type: Admission for Inpatient Services Order for Inpatient Services The services are ordered in accordance with Medicare regulations or non- Medicare payer requirements, as applicable. In the case of services not specified as inpatient-only, they are appropriately provided as inpatient services in accordance with the 2-midnight benchmark. Estimated LOS (days): 3 days is the estimated time the patient will need to remain in the hospital, assuming treatment plan goals are met and no additional complications. Post-Hospital Plan: Not yet determined Oneil Carmona DO Sep 19, 2017 09:32
[2017-09-19] MEDS: DOCUSATE SODIUM 50 MG/SENNA 8.6 MG TAB PO SCH ×2 (11:00→20:33)
[2017-09-19] MEDS: METOPROLOL TARTRATE 25 MG TAB PO SCH ×2 (11:00→23:01)
[2017-09-19] MEDS: CHOLECALCIFEROL (VIT D3) 1000 UNIT TAB PO SCH (12:00)
[2017-09-19] MEDS: INSULIN ASPART SUPPLEMENTAL SCALE SQ SCH ×3 (12:00→20:46)
[2017-09-19] MEDS: LISINOPRIL 10 MG TAB PO SCH (12:00)
[2017-09-19] MEDS: FINASTERIDE 5 MG TAB PO SCH (12:00)
[2017-09-19] MEDS: ALLOPURINOL 100 MG TAB PO SCH ×2 (12:00→20:33)
[2017-09-19] MEDS: SODIUM CHLOR 0.9% 1000 ML INJ 1,000 ML IV SCH ×2 (12:15→23:01)
[2017-09-19 12:26] LABS: TROPONIN I 0.09 NG/ML (0.02-0.05)
[2017-09-19] MEDS ORDERED: VANCOMYCIN INJ 1,250 MG in SODIUM CHLOR 0.9% 250 ML INJ 250 ML IV ONE (12:45)
[2017-09-19] MEDS: PYRIDOXINE HCL 50 MG TAB PO SCH (13:00)
[2017-09-19] MEDS ORDERED: CLOPIDOGREL 75 MG TAB PO SCH (13:00)
[2017-09-19] MEDS ORDERED: ASPIRIN 81 MG CHEW TAB CHEW SCH ×2 (13:00)
[2017-09-19] MEDS ORDERED: PILL SPLITTER OTHER PRN (13:45)
[2017-09-19] MEDS: POTASSIUM CHLORIDE 20 MEQ CONTROLLED RELEASE TAB PO SCH (13:52)
[2017-09-19] MEDS: TAMSULOSIN HCL 0.4 MG CAP PO SCH (17:55)
--- NOTE | 2017-09-19 20:21 | MB ---
cc: Ganesh Gutierrez DO DATE OF CONSULT: This is an 87-year-old male with a history of BPH and obstruction who presents with altered mental status and difficulty with urination. He is followed by Dr. Dhaliwal. He underwent an aortic valve replacement on 08/27 and then postprocedure required Weber catheter insertion for approximately 5-7 days. His Weber was removed in mid August and he was voiding but in the last few days he has been having some difficulty with urination. He has had changes in his mental status with confusion. A Weber catheter was inserted in the emergency room for approximately 300 mL which was cloudy. CT scan was performed demonstrating enlarged prostate without evidence of urinary retention or hydronephrosis. His creatinine on admission was 1.85. PAST MEDICAL HISTORY: His medical history includes atrial fibrillation, stomach cancer, type 2 diabetes, GERD, BPH with obstruction, hiatal hernia, hypertension, lower extremity edema, heart disease, history of an [place], gout. PAST SURGICAL HISTORY: Microwave prostatectomy by Dr. Morris in the past. Recent TAVR on , cardiac stenting, cataracts, tonsillectomy, nasal polyp. MEDICATIONS: Please review the chart but note he is on Coumadin. ALLERGIES: NIACIN. FAMILY HISTORY: Noted for hypertension. SOCIAL HISTORY: Denies smoking or using drugs. REVIEW OF SYSTEMS: Notes recent confusion but is presently at his baseline. Denies chest pain or shortness of breath, denies abdominal pain. Does not nocturia 8-10 times with moderate stream. He denies incomplete emptying which seems to be inconsistent with his history. Denies gait disturbances. The remaining review of systems were reviewed and were negative. PHYSICAL EXAMINATION: VITAL SIGNS: Temp is 98.5, heart rate 80, respiratory rate 18, 97/55, 99% on room air. GENERAL: He is a well-developed, well-nourished 87-year-old male in no acute distress. HEENT: Normocephalic, atraumatic. Pupils equal, round, regular and reactive to light. Extraocular movements intact. NECK: Supple. HEART: Regular rate and rhythm. LUNGS: Clear. ABDOMEN: Soft, nontender, nondistended. GENITOURINARY: Weber catheter in place, draining cloudy urine. Testes descended, nontender. EXTREMITIES: Show 1+ edema. NEUROLOGIC: Cranial nerves 2-12 are intact. LABORATORY DATA: White count 6.1, hemoglobin 9.8, hematocrit 28.9, platelet count of 67,000. Sodium 136, potassium 4.4, chloride 100, CO2 26.3, BUN of 38, creatinine 1.85, glucose of 164. Urinalysis shows many white cell clumps, 69 red cells, nitrite is negative, moderate leukocyte esterase. Urine culture and blood cultures are currently pending. Again, CT scan of the abdomen demonstrates bilateral renal calculi and simple cysts, no evidence of obstructive uropathy is noted. Prostatomegaly is identified. ASSESSMENT: This is an 87-year-old male with urinary tract infection and sepsis due to benign prostatic hypertrophy with bladder outlet obstruction. RECOMMENDATIONS: Continue Weber catheter drainage for now. Continue IV antibiotics. Continue Proscar and would start Flomax 0.4 mg p.o. at bedtime. Will continue to follow with you and will contact Dr. Dhaliwal at the beginning of the week. Thank you for this consultation and allowing me to participate in the care of this patient. DO CRISTIN LaytonT/rt , 04:33 PM , 08:20 PM
[2017-09-19] MEDS: MAGNESIUM OXIDE 400 MG TAB PO SCH (20:34)
[2017-09-19] MEDS: ATORVASTATIN 40 MG TAB PO SCH (20:34)
[2017-09-19 20:57] LABS: LACTIC ACID SEPSIS PROTOCOL 3.4 mmol/L (0.4-2.0)
[2017-09-19 20:59] LABS: TROPONIN I 0.13 NG/ML (0.02-0.05)
--- NOTE | 2017-09-19 21:20 | MB ---
cc: Greg Calzada MD DATE OF CONSULT: CARDIOLOGY CONSULT Kim Miller is admitted to the hospital with sepsis. The patient is an 87-year-old man known to multiple doctors. His original following commercial lending assistant is Dr. Bhat. The patient underwent a TAVR 08/[address] Michael. He has had a history of urinary problems and has had a Weber catheter. He has seen Dr. Hernández in the past. He comes in now with acute onset of fever, disorientation, incoherentness and diagnosed with probable urosepsis. Mental status has already cleared up. His fever is down. At the time I am seeing him he does not have any chest pain. He is not having any shortness of breath. He is somewhat weak. CURRENT MEDICATIONS: Consist of atorvastatin 40 mg, magnesium, Flomax, vitamins, potassium 20, allopurinol, Proscar, lisinopril 10 mg which was held this morning for blood pressure reasons, insulin, metoprolol which was held for blood pressure reasons. PAST MEDICAL HISTORY: Includes some hematologic abnormalities, aortic stenosis, status post TAVR, atrial fibrillation, kidney stones, coronary artery disease, status post acute inferior STEMI 10/31/2003 with stenting of the right coronary artery with 4.0 x 18 mm ____ stent. His last cardiac catheterization was performed 08/04/2017, right coronary artery had 10% disease, left main no significant disease, LAD had a 50% distal lesion and circumflex artery is diffusely calcified with a mid 95%-99% stenosis after the first OM artery. The patient underwent TAVR by Dr. Michael on 08/27. He had a 26 mm Mariela 3 valve placed. He had some hematuria and was followed by urology, diabetes, gout, hyperlipidemia, hypertension, renal insufficiency, carcinoid tumor 2015, Paget disease. PAST SURGICAL HISTORY: Includes this cath and TAVR procedures, cataract surgery, gallbladder, colonoscopy, nasal polyps, prostate surgery, tonsillectomy. SOCIAL HISTORY: Smoked from age 19 to 36. He is . PHYSICAL EXAMINATION: GENERAL: Well-developed, well-nourished elderly man. Does not appear to be in acute distress at the time I am seeing him. VITAL SIGNS: Blood pressures have improved. He did have some high fevers and one low blood pressure reading earlier. HEENT: Unremarkable. NECK: No JVD. No bruits. CHEST: Clear to auscultation. CARDIAC: S1, S2, irregular rate and rhythm, I/VII systolic ejection murmur that is early peaking, no aortic regurgitation. ABDOMEN: Soft, non-tender. Both groin sites are well healed. EXTREMITIES: Show about 2+ lower extremity edema. NEUROLOGIC: Appears alert and oriented. LABORATORY DATA: Charted. He is thrombocytopenic with a platelet count of 67,000, hematocrit is 28.9. INR is 4.6. BUN was 38 with creatinine of 1.85 this morning. Troponin nonspecific elevated at 0.09. He has blood cultures and urine cultures pending. Chest x-ray is unremarkable. Abdomen CT shows kidney stones. IMPRESSION: Status post transcatheter aortic valve replacement, suspected new urosepsis. He is thrombocytopenic and has an elevated INR. Aspirin, Plavix and warfarin are currently on hold. PLAN: I have notified the TAVR team, Margarita the coordinator and left a phone message with Dr. Michael. We need to let the INR come down some. Antibiotics are being administered for urinary tract infection. 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 Greg Calzada MD VEW/rt , 05:28 PM , 09:18 PM
[2017-09-20] VITALS (13 sets, daily range): BP systolic 96–135; BP diastolic 52–76; PULSE 75–99; RESP 17–20; TEMP 98–99.4; O2SAT 96–100
[2017-09-20 07:18] LABS: AUTOMATED NEUTROPHIL # 4.6 TH/MM3 (1.8-7.7); BASOPHIL % 0.8 % (0.0-2.0); EOSINOPHIL % 0.5 % (0.0-4.0); HEMATOCRIT 25.7 % (39.0-51.0); HEMOGLOBIN 8.9 GM/DL (13.0-17.0); LYMPH % 2.5 % (9.0-44.0); LYMPHOCYTE # 0.1 TH/MM3 (1.0-4.8); MEAN CELL VOLUME 94.7 FL (80.0-100.0); MEAN CORPUSCULAR HEMOGLOBIN 32.7 PG (27.0-34.0); MEAN CORPUSCULAR HGB CONC 34.5 % (32.0-36.0); MEAN PLATELET VOLUME 11.5 FL (7.0-11.0); MONO % 4.2 % (0.0-8.0); MONOCYTE # 0.2 TH/MM3 (0-0.9); PLATELET COUNT 59 TH/MM3 (150-450); RED BLOOD COUNT 2.71 MIL/MM3 (4.50-5.90); RED CELL DISTRIBUTION WIDTH 19.3 % (11.6-17.2)
[2017-09-20 07:21] LABS: INTERNATIONAL NORMALIZED RATIO 3.9 RATIO; PROTHROMBIN TIME - PATIENT 38.7 SEC (9.8-11.6)
[2017-09-20] MEDS: INSULIN ASPART SUPPLEMENTAL SCALE SQ SCH ×4 (07:45→21:19)
[2017-09-20 07:53] LABS: ALBUMIN 2.8 GM/DL (3.4-5.0); ALKALINE PHOSPHATASE 191 U/L (45-117); ALT (GPT) 62 U/L (12-78); AST (GOT) 102 U/L (15-37); BICARBONATE 22.8 MEQ/L (21.0-32.0); BLOOD UREA NITROGEN 49 MG/DL (7-18); CALCIUM 8.5 MG/DL (8.5-10.1); CHLORIDE 105 MEQ/L (98-107); CREATININE 1.71 MG/DL (0.60-1.30); FREE T4 0.91 NG/DL (0.76-1.46); GLOMERULAR FILTRATION RATE 38 ML/MIN (>89); GLUCOSE,RANDOM 123 MG/DL (74-106); MAGNESIUM 2.2 MG/DL (1.5-2.5); PHOSPHORUS 3.1 MG/DL (2.5-4.9); RANDOM VANCOMYCIN 8.3 COMMENT; SODIUM (NA) 137 MEQ/L (136-145); TOTAL PROTEIN 6.1 GM/DL (6.4-8.2)
[2017-09-20] MEDS ORDERED: cefTRIAXone INJ 1,000 MG in SODIUM CHLORIDE 0.9% INJ 100 ML IV SCH (08:00)
[2017-09-20] MEDS: SODIUM CHLOR 0.9% 1000 ML INJ 1,000 ML IV SCH ×2 (08:16→17:00)
[2017-09-20] MEDS: SODIUM CHLORIDE 0.9% FLUSH 10 ML FLUSH IV FLUSH SCH ×2 (08:17→21:19)
[2017-09-20] MEDS: LISINOPRIL 10 MG TAB PO SCH (08:23)
[2017-09-20] MEDS: CHOLECALCIFEROL (VIT D3) 1000 UNIT TAB PO SCH (08:23)
[2017-09-20] MEDS: FINASTERIDE 5 MG TAB PO SCH (08:23)
[2017-09-20] MEDS: MAGNESIUM OXIDE 400 MG TAB PO SCH ×2 (08:24→20:53)
[2017-09-20] MEDS: PYRIDOXINE HCL 50 MG TAB PO SCH (08:24)
[2017-09-20] MEDS: DOCUSATE SODIUM 50 MG/SENNA 8.6 MG TAB PO SCH ×2 (08:24→20:54)
[2017-09-20] MEDS: TAMSULOSIN HCL 0.4 MG CAP PO SCH (08:25)
[2017-09-20] MEDS: POTASSIUM CHLORIDE 20 MEQ CONTROLLED RELEASE TAB PO SCH (08:25)
[2017-09-20] MEDS: ALLOPURINOL 100 MG TAB PO SCH ×2 (08:28→20:53)
[2017-09-20 08:58] LABS: BANDS 35 % (0-6); LYMPHOCYTES 1 % (9-44); METAMYELOCYTES 1 % (0-1); MONOCYTES 2 % (0-8); NEUTROPHIL # MANUAL DIFF 4.9 TH/MM3 (1.8-7.7); POLYS (SEG NEUTROPHILS) 61 % (16-70)
[2017-09-20 08:59] LABS: OVALOCYTES 1+ (NORMAL)
[2017-09-20] MEDS ORDERED: VANCOMYCIN INJ 1,250 MG in SODIUM CHLOR 0.9% 250 ML INJ 250 ML IV SCH (09:30)
[2017-09-20] MEDS ORDERED: Vancomycin Consult Pharmacy 1 EA OTHER SCH (09:30)
--- NOTE | 2017-09-20 11:43 | HHI.PR ---
Subjective Patient symptoms today Pt seen and examined. Feels well. Urine slight blood tinged. Objective Vital Signs Vital Signs Date Time Temp Pulse Resp B/P (MAP) Pulse Ox O2 Delivery O2 Flow Rate FiO2 09/20/17 11:36 99.2 98 20 121/56 (77) 96 09/20/17 09:47 100 09/20/17 08:41 99 09/20/17 08:26 98.6 95 20 135/76 (95) 100 09/20/17 03:30 98.2 80 19 126/61 (82) 100 09/20/17 01:42 82 09/20/17 01:40 77 09/20/17 00:45 98.0 75 20 126/63 (84) 96 09/19/17 20:00 98.0 78 18 129/62 (84) 97 09/19/17 13:53 09/19/17 13:44 80 18 97/55 (69) 99 Room Air 09/19/17 13:40 98.5 82 17 116/58 (77) 100 09/19/17 12:09 80 16 94/52 (66) 99 Room Air Intake & Output 09/20/17 09/20/17 07:00 19:00 Intake Total 950 ml 100 ml Output Total 650 ml Balance 300 ml 100 ml Intake Oral 950 ml IV Total 100 ml Output Urine Total 650 ml # Bowel Movements 2 Result Diagram: 09/20/1745 09/20/1745 Objective Remarks Abd:soft,nt,nd López: slight blood tinged Ext: neg C/C/E Medications and IVs Current Medications Medications (Trade) Dose Ordered Sig/Nella Route Start Time Stop Time Status Last Admin (Zyloprim) 100 mg BID PO 09/19/17 12:00 09/20/17 08:28 (Aspirin Chew) 81 mg DAILY CHEW 09/19/17 13:00 Future Hold (Lipitor) 40 mg HS PO 09/19/17 21:00 09/19/17 20:34 (Vitamin D3) 1,000 units DAILY PO 09/19/17 12:00 09/20/17 08:23 (Plavix) 75 mg DAILY PO 09/19/17 13:00 Future Hold (Proscar) 5 mg DAILY PO 09/19/17 12:00 09/20/17 08:23 (Prinivil) 10 mg DAILY PO 09/19/17 12:00 09/20/17 08:23 (Mag-Ox) 400 mg BID PO 09/19/17 21:00 09/20/17 08:24 (Lopressor) 12.5 mg Q12H PO 09/19/17 11:00 09/19/17 23:01 (KCl) 20 meq DAILY PO 09/19/17 13:00 09/20/17 08:25 (Vitamin B6) 100 mg DAILY PO 09/19/17 13:00 09/20/17 08:24 Sodium Chloride 1,000 ml @ 100 mls/hr Q10H IV 09/19/17 12:00 09/20/17 08:16 (Tylenol) 650 mg Q4H PRN PO 09/19/17 09:00 (Zofran Inj) 4 mg Q6H PRN IVP 09/19/17 09:00 (Reglan Inj) 5 mg Q6H PRN IV PUSH 09/19/17 09:00 (Tylenol) 650 mg Q6H PRN PO 09/19/17 09:00 (Percocet 5-325 Mg) 1 tab Q6H PRN PO 09/19/17 09:00 (Percocet 10-325 Mg) 1 tab Q6H PRN PO 09/19/17 09:00 (Morphine Inj) 2 mg Q3H PRN IV PUSH 09/19/17 09:00 (Morphine Inj) 4 mg Q3H PRN IV PUSH 09/19/17 09:00 (Narcan Inj) 0.4 mg UNSCH PRN IV PUSH 09/19/17 09:00 (Ora-Colace) 1 tab BID PO 09/19/17 11:00 09/20/17 08:24 (Milk Of Magnesia Liq) 30 ml Q12H PRN PO 09/19/17 09:00 (Senokot) 17.2 mg Q12H PRN PO 09/19/17 09:00 (Dulcolax Supp) 10 mg DAILY PRN RECTAL 09/19/17 09:00 (Lactulose Liq) 30 ml DAILY PRN PO 09/19/17 09:00 (NS Flush) 2 ml UNSCH PRN IV FLUSH 09/19/17 09:00 (NS Flush) 2 ml BID IV FLUSH 09/19/17 09:00 09/20/17 08:17 Ceftriaxone Sodium 1000 mg/ Sodium Chloride 100 ml @ 200 mls/hr Q24H IV 09/20/17 08:00 09/20/17 08:16 (NovoLOG SUPPLEMENTAL SCALE) 1 ACHS SLIDING SCALE SQ 09/19/17 12:00 09/19/17 20:46 (D50w (Vial) Inj) 50 ml UNSCH PRN IV PUSH 09/19/17 09:00 (Glucagon Inj) 1 mg UNSCH PRN OTHER 09/19/17 09:00 (Pill Splitter) 1 ea UNSCH PRN OTHER 09/19/17 13:45 (Flomax) 0.4 mg DAILY PO 09/19/17 16:45 09/20/17 08:25 Pharmacy Profile Note 0 ml @ 0 mls/hr UNSCH OTHER 09/20/17 09:30 Assessment and Plan Assessment and Plan 87 y.o male admitted with SIBLEY and UTI with sepsis B/C with GNR's Continue ABx Maintain lópez; irrigate prn Ganesh Gutierrez DO Sep 20, 2017 11:43
[2017-09-20] MEDS: METOPROLOL TARTRATE 25 MG TAB PO SCH ×2 (11:59→23:00)
[2017-09-20 12:05] LABS: HEMOGLOBIN A1C 6.9 % (4.3-6.0)
--- NOTE | 2017-09-20 12:23 | PD.ID.CON ---
History of Present Illness Service ID Consult Requested By Reason for Consult Evaluation and Mment of Sepsis, Gram positive bacteremia, abnormal UA. Primary Care Physician Unknown Diagnoses: History of Present Illness Mr. Miller is a 87-year-old male with past medical history significant for severe aortic stenosis, CHF. Patient was deemed as a candidate for Transcatheter aortic valve replacement(TAVR) and electively underwent procedure on 08/27/[address]Cary Calle per Operative report. Patient reports he had a transvenous temporary pacemaker that was removed from his right neck within 1 day.He also reports use of right groin for the TAVR access. He reports preoperatively there was difficulty placing a lópez catheter and he had hematuria and Urology was involved. He goes on to report he was discharged with a lópez catheter in place. He reports enroute home while on hospital premises he had a fall with abrasions to bilateral knees and left side of his forehead with a gash on his nose and nasal bleed. He was in the ER for observation and was discharged home after few hours. Post operatively he otherwise did ok from cardiac standpoint. He did see the urologist twice and ultimately upon his request the lópez catheter was removed. One day prior to admission patient's reports he became acutely confused( not acting his normal self) and had high grade fevers, urinary symptoms. He was brought in by ambulance after having fevers and dysuria and change in mental status at home. In the emergency department to have a urinary tract infection, will be admitted for urinary tract infection and severe sepsis. Patient had blood cultures drawn on admission which are positive 4 out of 4 bottles for Gram positive cocci in pairs and clusters. ID consulted for evaluation and Mment of Severe Sepsis, GP bacteremia, abnormal UA. Review of Systems Constitutional: COMPLAINS OF: Fatigue, Fever, DENIES: Diaphoretic episodes, Weight gain, Weight loss, Chills, Dizziness, Change in appetite, Night Sweats Endocrine: DENIES: Heat/cold intolerance, Polydipsia, Polyuria, Polyphagia Eyes: DENIES: Blurred vision, Diplopia, Eye inflammation, Eye pain, Vision loss , Photosensitivity, Double Vision Ears, nose, mouth, throat: DENIES: Tinnitus, Hearing loss, Vertigo, Nasal discharge, Oral lesions, Throat pain, Hoarseness, Ear Pain, Running Nose, Epistaxis, Sinus Pain, Toothache, Odynophagia Respiratory: DENIES: Apneas, Cough, Snoring, Wheezing, Hemoptysis, Sputum production, Shortness of breath Cardiovascular: COMPLAINS OF: Lower Extremity Edema, DENIES: Chest pain, Palpitations, Syncope, Dyspnea on Exertion, PND, Orthopnea, Claudication Gastrointestinal: DENIES: Abdominal pain, Black stools, Bloody stools, Constipation, Diarrhea, Nausea, Vomiting, Difficulty Swallowing, Anorexia Genitourinary: DENIES: Sexual dysfunction, Urinary frequency, Urinary incontinence, Urgency, Hematuria, Dysuria, Nocturia, Penile Discharge, Testicular Pain, Testicular Swelling Musculoskeletal: DENIES: Joint pain, Muscle aches, Stiffness, Joint Swelling, Back pain, Neck pain Integumentary: DENIES: Abnormal pigmentation, Nail changes, Pruritus, Rash Hematologic/lymphatic: COMPLAINS OF: Bruising, DENIES: Lymphadenopathy Neurologic: DENIES: Abnormal gait, Headache, Localized weakness, Paresthesias, Seizures, Speech Problems, Tremor, Poor Balance Psychiatric: DENIES: Anxiety, Confusion, Mood changes, Depression, Hallucinations, Agitation, Suicidal Ideation, Homicidal Ideation, Delusions Except as stated in HPI: all other systems reviewed are Neg Past Family Social History Allergies: Coded Allergies: niacin (Verified Allergy, Unknown, 09/19/17) sitagliptin (Unverified Adverse Reaction, Severe, STOMACH PAIN, 09/19/17) Past Medical History Recent TAVR Chronic atrial fibrillation on Coumadin History of stomach cancer Diabetes mellitus type 2 GERD History of BPH Hiatal hernia Hypertension chronic bilateral lower extremity edema Hyperlipidemia Coronary artery disease History of myocardial infarction Gout Chronic anticoagulation Past Surgical History Patient TAVR on August 27 History of cardiac stents History of cataracts bilaterally with lens implants History of prostate surgery History of tonsillectomy History of prostatectomy History of nasal polyps Reported Medications Reported Meds & Active Scripts Active Lisinopril 10 Mg Tab 10 Mg PO DAILY Metoprolol Tartrate 25 Mg Tab 12.5 Mg PO Q12HR Plavix (Clopidogrel Bisulfate) 75 Mg Tab 75 Mg PO DAILY Reported Vitamin D-1000 (Cholecalciferol) 1,000 Unit Tab 1,000 Units PO DAILY Vitamin B-6 (Pyridoxine HCl) 100 Mg Tab 100 Mg PO DAILY Finasteride 5 Mg Tab 5 Mg PO DAILY Do not crush. Atorvastatin (Atorvastatin Calcium) 40 Mg Tab 40 Mg PO HS Miralax Powder (Polyethylene Glycol 3350 Powder) 17 Gm Powd 17 Gm PO DAILY PRN Mix and dissolve one measuring cap-ful (17 grams) in water or juice. Co Q 10 (Coenzyme Q10 (Ubidecarenone)) 100 Mg-5 Unit Cap 100 Mg PO DAILY Aspirin 81 Low Dose (Aspirin) 81 Mg Chew 81 Mg CHEW DAILY Vitamin B-12 (Cyanocobalamin) 1,000 Mcg Tab Unknown Dose PO TID Levemir Inj (Insulin Detemir) 1,000 unit/ 10 ML Vial 28 Units SQ DAILY Do not mix with any other Insulin. Potassium Chloride ER (Potassium Chloride) 20 Meq Tab 20 Meq PO DAILY Furosemide 40 Mg Tab 40 Mg PO DAILY Mag-Delay (Magnesium Chloride) 70 Mg Magnesium Tab 500 Mg PO BID Ferrous Gluconate 240 Mg (27 Mg Iron) Tab 240 Mg PO DAILY Warfarin 4 Mg Tab 4 Mg PO DAILY Allopurinol 100 Mg Tab 100 Mg PO BID Active Ordered Medications Current Medications Medications (Trade) Dose Ordered Sig/Nella Route Start Time Stop Time Status Last Admin (Zyloprim) 100 mg BID PO 09/19/17 12:00 09/20/17 08:28 (Aspirin Chew) 81 mg DAILY CHEW 09/19/17 13:00 Future Hold (Lipitor) 40 mg HS PO 09/19/17 21:00 09/19/17 20:34 (Vitamin D3) 1,000 units DAILY PO 09/19/17 12:00 09/20/17 08:23 (Plavix) 75 mg DAILY PO 09/19/17 13:00 Future Hold (Proscar) 5 mg DAILY PO 09/19/17 12:00 09/20/17 08:23 (Prinivil) 10 mg DAILY PO 09/19/17 12:00 09/20/17 08:23 (Mag-Ox) 400 mg BID PO 09/19/17 21:00 09/20/17 08:24 (Lopressor) 12.5 mg Q12H PO 09/19/17 11:00 09/20/17 11:59 (KCl) 20 meq DAILY PO 09/19/17 13:00 09/20/17 08:25 (Vitamin B6) 100 mg DAILY PO 09/19/17 13:00 09/20/17 08:24 Sodium Chloride 1,000 ml @ 100 mls/hr Q10H IV 09/19/17 12:00 09/20/17 08:16 (Tylenol) 650 mg Q4H PRN PO 09/19/17 09:00 (Zofran Inj) 4 mg Q6H PRN IVP 09/19/17 09:00 (Reglan Inj) 5 mg Q6H PRN IV PUSH 09/19/17 09:00 (Tylenol) 650 mg Q6H PRN PO 09/19/17 09:00 (Percocet 5-325 Mg) 1 tab Q6H PRN PO 09/19/17 09:00 (Percocet 10-325 Mg) 1 tab Q6H PRN PO 09/19/17 09:00 (Morphine Inj) 2 mg Q3H PRN IV PUSH 09/19/17 09:00 (Morphine Inj) 4 mg Q3H PRN IV PUSH 09/19/17 09:00 (Narcan Inj) 0.4 mg UNSCH PRN IV PUSH 09/19/17 09:00 (Ora-Colace) 1 tab BID PO 09/19/17 11:00 09/20/17 08:24 (Milk Of Magnesia Liq) 30 ml Q12H PRN PO 09/19/17 09:00 (Senokot) 17.2 mg Q12H PRN PO 09/19/17 09:00 (Dulcolax Supp) 10 mg DAILY PRN RECTAL 09/19/17 09:00 (Lactulose Liq) 30 ml DAILY PRN PO 09/19/17 09:00 (NS Flush) 2 ml UNSCH PRN IV FLUSH 09/19/17 09:00 (NS Flush) 2 ml BID IV FLUSH 09/19/17 09:00 09/20/17 08:17 Ceftriaxone Sodium 1000 mg/ Sodium Chloride 100 ml @ 200 mls/hr Q24H IV 09/20/17 08:00 09/20/17 08:16 (NovoLOG SUPPLEMENTAL SCALE) 1 ACHS SLIDING SCALE SQ 09/19/17 12:00 09/20/17 11:54 (D50w (Vial) Inj) 50 ml UNSCH PRN IV PUSH 09/19/17 09:00 (Glucagon Inj) 1 mg UNSCH PRN OTHER 09/19/17 09:00 (Pill Splitter) 1 ea UNSCH PRN OTHER 09/19/17 13:45 (Flomax) 0.4 mg DAILY PO 09/19/17 16:45 09/20/17 08:25 Pharmacy Profile Note 0 ml @ 0 mls/hr UNSCH OTHER 09/20/17 09:30 Vancomycin HCl 1250 mg/Sodium Chloride 262.5 ml @ 250 mls/hr ONCE ONCE IV 09/20/17 14:00 09/20/17 15:02 Family History Hypertension in the family Social History Lives with Denies any tobacco alcohol or illicit Physical Exam Vital Signs Vital Signs Date Time Temp Pulse Resp B/P (MAP) Pulse Ox O2 Delivery O2 Flow Rate FiO2 09/20/17 11:36 99.2 98 20 121/56 (77) 96 09/20/17 09:47 100 09/20/17 08:41 99 09/20/17 08:26 98.6 95 20 135/76 (95) 100 09/20/17 03:30 98.2 80 19 126/61 (82) 100 09/20/17 01:42 82 09/20/17 01:40 77 09/20/17 00:45 98.0 75 20 126/63 (84) 96 09/19/17 20:00 98.0 78 18 129/62 (84) 97 09/19/17 13:53 09/19/17 13:44 80 18 97/55 (69) 99 Room Air 09/19/17 13:40 98.5 82 17 116/58 (77) 100 Physical Exam GENERAL: This is a well-nourished, well-developed patient, in no apparent distress. SKIN: No rashes, ecchymoses or lesions. Cool and dry. HEAD: Atraumatic. Normocephalic. No temporal or scalp tenderness. Old bruise on his forehead with no e.o infection. Nose with no erythema no bleeding noted. EYES: Pupils equal round and reactive. Extraocular motions intact. No scleral icterus. No injection or drainage. ENT: Nose without bleeding, purulent drainage or septal hematoma. Throat without erythema, tonsillar hypertrophy or exudate. Uvula midline. Airway patent. NECK: Trachea midline. Supple, nontender, no meningeal signs. CARDIOVASCULAR: HS audible. RESPIRATORY: Clear to auscultation. Breath sounds equal bilaterally. GASTROINTESTINAL: Abdomen soft, non-tender, nondistended. MUSCULOSKELETAL: Extremities without clubbing, cyanosis, or edema. No joint tenderness, effusion, or edema noted. No calf tenderness. Negative Homans sign bilaterally.There are old scabs on bilateral knees but no effusion or signs of infection at present time. Prior temporary transvenous pacemaker site with no e.o infection. Groin TAVR access sites with no e.o infection. Bruises notes on abdomen. NEUROLOGICAL: Awake and alert. Non focal exam Psych cooperative. IV line sites with no e.o infection. Laboratory Laboratory Tests Test 09/19/17 20:23 09/19/17 23:42 09/20/17 05:45 09/20/17 10:21 Lactic Acid Level 3.4 2.2 1.4 Total Creatine Kinase 92 Troponin I 0.13 White Blood Count 5.0 Red Blood Count 2.71 Hemoglobin 8.9 Hematocrit 25.7 Mean Corpuscular Volume 94.7 Mean Corpuscular Hemoglobin 32.7 Mean Corpuscular Hemoglobin Concent 34.5 Red Cell Distribution Width 19.3 Platelet Count 59 Mean Platelet Volume 11.5 Neutrophils (%) (Auto) 92.0 Lymphocytes (%) (Auto) 2.5 Monocytes (%) (Auto) 4.2 Eosinophils (%) (Auto) 0.5 Basophils (%) (Auto) 0.8 Neutrophils # (Auto) 4.6 Lymphocytes # (Auto) 0.1 Monocytes # (Auto) 0.2 Eosinophils # (Auto) 0.0 Basophils # (Auto) 0.0 CBC Comment AUTO DIFF Differential Total Cells Counted 100 Neutrophils % (Manual) 61 Band Neutrophils % 35 Lymphocytes % 1 Monocytes % 2 Neutrophils # (Manual) 4.9 Metamyelocytes 1 Differential Comment FINAL DIFF MANUAL Platelet Estimate LOW Platelet Morphology Comment NORMAL Ovalocytes 1+ Prothrombin Time 38.7 Prothromb Time International Ratio 3.9 Blood Urea Nitrogen 49 Creatinine 1.71 Random Glucose 123 Total Protein 6.1 Albumin 2.8 Calcium Level 8.5 Phosphorus Level 3.1 Magnesium Level 2.2 Alkaline Phosphatase 191 Aspartate Amino Transf (AST/SGOT) 102 Alanine Aminotransferase (ALT/SGPT) 62 Total Bilirubin 2.0 Sodium Level 137 Potassium Level 3.8 Chloride Level 105 Carbon Dioxide Level 22.8 Anion Gap 9 Estimat Glomerular Filtration Rate 38 Free Thyroxine 0.91 Thyroid Stimulating Hormone 3rd Gen 0.943 Random Vancomycin Level 8.3 Date/Time Source Procedure Growth Status 09/19/17 05:45 Blood Peripheral Aerobic Blood Culture - Preliminary Gram Positive Cocci Resulted 09/19/17 05:45 Anaerobic Blood Culture - Preliminary Gram Positive Cocci Resulted 09/19/17 05:40 Nasal Washing Influenza Types A,B Antigen (ALVARO) - Final NEGATIVE FOR FLU A AND B ANTIGEN.... Complete 09/19/17 05:40 Urine Catheterized Urine Urine Culture Pending Received Result Diagram: 09/20/17 0545 09/20/17 0545 Imaging Last Impressions Chest X-Ray 09/19/17 0538 Signed Impressions: Service Date/Time: Tuesday, September 19, 2017 06:10 - CONCLUSION: No infiltrates seen. Matt Bhatti MD Abdomen/Pelvis CT 09/19/17 0000 Signed Impressions: Service Date/Time: Tuesday, September 19, 2017 07:14 - CONCLUSION: 1. Bilateral renal calculi and simple cysts. 2. No evidence of obstructive uropathy. 3. Prostatomegaly. 4. Uncomplicated diverticulosis. 5. No acute process. Washington Parra MD Assessment and Plan Assessment and Plan Severe Sepsis present on admission Gram positive bacteremia Rule out endocarditis Recent TAVR bioprosthetic valve. Recent h/o temporary pacer placement during TAVR. h/o fall post TAVR with bruising of bilateral knees. Acute renal failure: likely sepsis related. Recs: Continue Vanco IV (target 15-20) Continue Ceftriaxone IV for now. Repeat blood cultures x 2 2D ECHO limited r.o endocarditis in pt with recent TAVR. Follow Cr to see Vanco needs to be changed to Dapto IV if Cr continues to go up. Follow cultures. Follow clinically. amanda patel thermal engineer concerns about events around fall post TAVR. amanda patient and plan about treating with IV antibiotics for 6 weeks as concern that the recent TAVR may get infected due to the high grade bacteremia. Destiny Blanton MD Sep 20, 2017 12:22
--- NOTE | 2017-09-20 12:29 | PD.CARD.PN ---
Subjective Subjective Remarks Feeling better. No complaints Objective Medications Current Medications Medications (Trade) Dose Ordered Sig/Nella Route Start Time Stop Time Status Last Admin (Zyloprim) 100 mg BID PO 09/19/17 12:00 09/20/17 08:28 (Aspirin Chew) 81 mg DAILY CHEW 09/19/17 13:00 Future Hold (Lipitor) 40 mg HS PO 09/19/17 21:00 09/19/17 20:34 (Vitamin D3) 1,000 units DAILY PO 09/19/17 12:00 09/20/17 08:23 (Plavix) 75 mg DAILY PO 09/19/17 13:00 Future Hold (Proscar) 5 mg DAILY PO 09/19/17 12:00 09/20/17 08:23 (Prinivil) 10 mg DAILY PO 09/19/17 12:00 09/20/17 08:23 (Mag-Ox) 400 mg BID PO 09/19/17 21:00 09/20/17 08:24 (Lopressor) 12.5 mg Q12H PO 09/19/17 11:00 09/20/17 11:59 (KCl) 20 meq DAILY PO 09/19/17 13:00 09/20/17 08:25 (Vitamin B6) 100 mg DAILY PO 09/19/17 13:00 09/20/17 08:24 Sodium Chloride 1,000 ml @ 100 mls/hr Q10H IV 09/19/17 12:00 09/20/17 08:16 (Tylenol) 650 mg Q4H PRN PO 09/19/17 09:00 (Zofran Inj) 4 mg Q6H PRN IVP 09/19/17 09:00 (Reglan Inj) 5 mg Q6H PRN IV PUSH 09/19/17 09:00 (Tylenol) 650 mg Q6H PRN PO 09/19/17 09:00 (Percocet 5-325 Mg) 1 tab Q6H PRN PO 09/19/17 09:00 (Percocet 10-325 Mg) 1 tab Q6H PRN PO 09/19/17 09:00 (Morphine Inj) 2 mg Q3H PRN IV PUSH 09/19/17 09:00 (Morphine Inj) 4 mg Q3H PRN IV PUSH 09/19/17 09:00 (Narcan Inj) 0.4 mg UNSCH PRN IV PUSH 09/19/17 09:00 (Ora-Colace) 1 tab BID PO 09/19/17 11:00 09/20/17 08:24 (Milk Of Magnesia Liq) 30 ml Q12H PRN PO 09/19/17 09:00 (Senokot) 17.2 mg Q12H PRN PO 09/19/17 09:00 (Dulcolax Supp) 10 mg DAILY PRN RECTAL 09/19/17 09:00 (Lactulose Liq) 30 ml DAILY PRN PO 09/19/17 09:00 (NS Flush) 2 ml UNSCH PRN IV FLUSH 09/19/17 09:00 (NS Flush) 2 ml BID IV FLUSH 09/19/17 09:00 09/20/17 08:17 Ceftriaxone Sodium 1000 mg/ Sodium Chloride 100 ml @ 200 mls/hr Q24H IV 09/20/17 08:00 09/20/17 08:16 (NovoLOG SUPPLEMENTAL SCALE) 1 ACHS SLIDING SCALE SQ 09/19/17 12:00 09/20/17 11:54 (D50w (Vial) Inj) 50 ml UNSCH PRN IV PUSH 09/19/17 09:00 (Glucagon Inj) 1 mg UNSCH PRN OTHER 09/19/17 09:00 (Pill Splitter) 1 ea UNSCH PRN OTHER 09/19/17 13:45 (Flomax) 0.4 mg DAILY PO 09/19/17 16:45 09/20/17 08:25 Pharmacy Profile Note 0 ml @ 0 mls/hr UNSCH OTHER 09/20/17 09:30 Vital Signs / I&O Vital Signs Date Time Temp Pulse Resp B/P (MAP) Pulse Ox O2 Delivery O2 Flow Rate FiO2 09/20/17 11:36 99.2 98 20 121/56 (77) 96 09/20/17 09:47 100 09/20/17 08:41 99 09/20/17 08:26 98.6 95 20 135/76 (95) 100 09/20/17 03:30 98.2 80 19 126/61 (82) 100 09/20/17 01:42 82 09/20/17 01:40 77 09/20/17 00:45 98.0 75 20 126/63 (84) 96 09/19/17 20:00 98.0 78 18 129/62 (84) 97 09/19/17 13:53 09/19/17 13:44 80 18 97/55 (69) 99 Room Air 09/19/17 13:40 98.5 82 17 116/58 (77) 100 I/O 09/19/17 09/19/17 09/19/17 09/20/17 09/20/17 09/20/17 06:59 14:59 22:59 06:59 14:59 22:59 Intake Total 100 ml 2000 ml 500 ml 450 ml 100 ml Output Total 200 ml 300 ml 350 ml Balance 100 ml 1800 ml 200 ml 100 ml 100 ml Intake Oral 500 ml 450 ml IV Total 100 ml 2000 ml 100 ml Output Urine Total 200 ml 300 ml 350 ml # Voids 1 # Bowel Movements 1 2 Physical Exam Alert Chest yfn CV S1S2 irr irr, no AR murmur Abd sodt Ext no CCE Laboratory Laboratory Tests Test 09/19/17 20:23 09/19/17 23:42 09/20/17 05:45 09/20/17 10:21 Lactic Acid Level 3.4 mmol/L 2.2 mmol/L 1.4 mmol/L Total Creatine Kinase 92 U/L Troponin I 0.13 NG/ML White Blood Count 5.0 TH/MM3 Red Blood Count 2.71 MIL/MM3 Hemoglobin 8.9 GM/DL Hematocrit 25.7 % Mean Corpuscular Volume 94.7 FL Mean Corpuscular Hemoglobin 32.7 PG Mean Corpuscular Hemoglobin Concent 34.5 % Red Cell Distribution Width 19.3 % Platelet Count 59 TH/MM3 Mean Platelet Volume 11.5 FL Neutrophils (%) (Auto) 92.0 % Lymphocytes (%) (Auto) 2.5 % Monocytes (%) (Auto) 4.2 % Eosinophils (%) (Auto) 0.5 % Basophils (%) (Auto) 0.8 % Neutrophils # (Auto) 4.6 TH/MM3 Lymphocytes # (Auto) 0.1 TH/MM3 Monocytes # (Auto) 0.2 TH/MM3 Eosinophils # (Auto) 0.0 TH/MM3 Basophils # (Auto) 0.0 TH/MM3 CBC Comment AUTO DIFF Differential Total Cells Counted 100 Neutrophils % (Manual) 61 % Band Neutrophils % 35 % Lymphocytes % 1 % Monocytes % 2 % Neutrophils # (Manual) 4.9 TH/MM3 Metamyelocytes 1 % Differential Comment FINAL DIFF MANUAL Platelet Estimate LOW Platelet Morphology Comment NORMAL Ovalocytes 1+ Prothrombin Time 38.7 SEC Prothromb Time International Ratio 3.9 RATIO Blood Urea Nitrogen 49 MG/DL Creatinine 1.71 MG/DL Random Glucose 123 MG/DL Total Protein 6.1 GM/DL Albumin 2.8 GM/DL Calcium Level 8.5 MG/DL Phosphorus Level 3.1 MG/DL Magnesium Level 2.2 MG/DL Alkaline Phosphatase 191 U/L Aspartate Amino Transf (AST/SGOT) 102 U/L Alanine Aminotransferase (ALT/SGPT) 62 U/L Total Bilirubin 2.0 MG/DL Sodium Level 137 MEQ/L Potassium Level 3.8 MEQ/L Chloride Level 105 MEQ/L Carbon Dioxide Level 22.8 MEQ/L Anion Gap 9 MEQ/L Estimat Glomerular Filtration Rate 38 ML/MIN Free Thyroxine 0.91 NG/DL Thyroid Stimulating Hormone 3rd Gen 0.943 uIU/ML Random Vancomycin Level 8.3 COMMENT Imaging Last 48 hours Impressions Chest X-Ray 09/19/17 0538 Signed Impressions: Service Date/Time: Tuesday, September 19, 2017 06:10 - CONCLUSION: No infiltrates seen. Matt Bhatti MD Abdomen/Pelvis CT 09/19/17 0000 Signed Impressions: Service Date/Time: Tuesday, September 19, 2017 07:14 - CONCLUSION: 1. Bilateral renal calculi and simple cysts. 2. No evidence of obstructive uropathy. 3. Prostatomegaly. 4. Uncomplicated diverticulosis. 5. No acute process. Washington Parra MD Assessment and Plan Problem List: (1) Warfarin-induced coagulopathy ICD Codes: D68.32 - Hemorrhagic disorder due to extrinsic circulating 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; T45.515A - Adverse effect of 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, initial encounter Plan: INR coming down. Anti-platelet therapy on hold. (2) Status post transcatheter aortic valve replacement (TAVR) using bioprosthesis ICD Codes: Z95.3 - Presence of xenogenic heart valve Plan: Normal function (3) Atrial fibrillation ICD Codes: I48.91 - Atrial fibrillation Status: Acute Plan: stable (4) Sepsis ICD Codes: A41.9 - Sepsis, unspecified organism Status: Acute Plan: ID on case (5) CAD (coronary artery disease) ICD Codes: I25.10 - Atherosclerotic heart disease of hughes coronary artery without angina pectoris Plan: stable Problem Qualifiers (1) Sepsis: Qualified Codes: A41.9 - Sepsis, unspecified organism Greg Calzada MD Sep 20, 2017 12:29
[2017-09-20] MEDS ORDERED: VANCOMYCIN INJ 1,250 MG in SODIUM CHLOR 0.9% 250 ML INJ 250 ML IV ONE (14:00)
--- NOTE | 2017-09-20 15:06 | ECHRPT ---
Indication: Vegetations / POST TAVR CONCLUSIONS Aortic valve area is 1.5 cm. Aortic valve mean gradient is 9 mmHg. Status-post aortic valve repair. BP: / HR: 80 Rhythm: Sinus MEASUREMENTS (Male / Female) Normal Values Technical Quality:Fair 2D ECHO LVOT Diameter 2.3 cm DOPPLER AV Peak Velocity 193.6 cm/s AV Peak Gradient 15.0 mmHg AV Mean Gradient 9.0 mmHg AV Velocity Time Integral 37.1 cm LVOT Peak Velocity 69.6 cm/s LVOT Peak Gradient 1.9 mmHg AV Area Cont Eq pk 1.5 cm FINDINGS LEFT VENTRICLE Limited study with grossly preserved function AORTIC VALVE Aortic valve area is 1.5 cm. Aortic valve mean gradient is 9 mmHg. Status-post aortic valve TAVR no obvious vegetations; consider JULIO as none of the valves are well visualized Angela Mckeon MD, FACC (Electronically Signed) Final Date:20 September 2017 15:05
--- NOTE | 2017-09-20 15:19 | HHI.PR ---
Subjective Remarks The patient was resting comfortably in bed. He understood that he needed a long -term treatment of antibiotics. He says he always has bloody urine when a Weber catheter is placed. Discussed with nursing. Objective Vitals Vital Signs Date Time Temp Pulse Resp B/P (MAP) Pulse Ox O2 Delivery O2 Flow Rate FiO2 09/20/17 12:31 95 09/20/17 11:36 99.2 98 20 121/56 (77) 96 09/20/17 09:47 100 09/20/17 08:41 99 09/20/17 08:26 98.6 95 20 135/76 (95) 100 09/20/17 03:30 98.2 80 19 126/61 (82) 100 09/20/17 01:42 82 09/20/17 01:40 77 09/20/17 00:45 98.0 75 20 126/63 (84) 96 09/19/17 20:00 98.0 78 18 129/62 (84) 97 I/O 09/19/17 09/19/17 09/19/17 09/20/17 09/20/17 09/20/17 07:00 15:00 23:00 07:00 15:00 23:00 Intake Total 100 ml 2000 ml 500 ml 450 ml 100 ml Output Total 200 ml 300 ml 350 ml 500 ml Balance 100 ml 1800 ml 200 ml 100 ml -400 ml Intake Oral 500 ml 450 ml IV Total 100 ml 2000 ml 100 ml Output Urine Total 200 ml 300 ml 350 ml 500 ml # Voids 1 # Bowel Movements 1 2 Result Diagram: 09/20/17 0545 09/20/17 0545 Imaging Last Impressions Chest X-Ray 09/19/17 0538 Signed Impressions: Service Date/Time: Tuesday, September 19, 2017 06:10 - CONCLUSION: No infiltrates seen. Matt Bhatti MD Abdomen/Pelvis CT 09/19/17 0000 Signed Impressions: Service Date/Time: Tuesday, September 19, 2017 07:14 - CONCLUSION: 1. Bilateral renal calculi and simple cysts. 2. No evidence of obstructive uropathy. 3. Prostatomegaly. 4. Uncomplicated diverticulosis. 5. No acute process. Washington Parra MD Objective Remarks GENERAL: This is a well-nourished, well-developed patient, in no apparent distress. SKIN: No rashes, ecchymoses or lesions. Cool and dry. HEAD: Atraumatic. Normocephalic. No temporal or scalp tenderness. EYES: Pupils equal round and reactive. Extraocular motions intact. No scleral icterus. No injection or drainage. ENT: Nose without bleeding, purulent drainage or septal hematoma. Throat without erythema, tonsillar hypertrophy or exudate. Uvula midline. Airway patent. NECK: Trachea midline. No JVD or lymphadenopathy. Supple, nontender, no meningeal signs. CARDIOVASCULAR: Irregular rate and rhythm without gallops, or rubs. S1-S2 no S3 or S4 RESPIRATORY: Clear to auscultation. No wheezes, rales, or rhonchi. Decreased breath sounds bilaterally GASTROINTESTINAL: Abdomen soft, non-tender, nondistended. No hepato-splenomegaly , or palpable masses. No guarding. MUSCULOSKELETAL: Extremities without clubbing, cyanosis, positive edema in the lower extremities. No joint tenderness, effusion, or edema noted. NEUROLOGICAL: Awake and alert. Cranial nerves II through XII intact. Motor and sensory grossly within normal limits. 4 out of 5 muscle strength in all muscle groups. Normal speech. PSYCH: Mood and affect appropriate. Medications and IVs Current Medications Medications (Trade) Dose Ordered Sig/Nella Route Start Time Stop Time Status Last Admin (Zyloprim) 100 mg BID PO 09/19/17 12:00 09/20/17 08:28 (Aspirin Chew) 81 mg DAILY CHEW 09/19/17 13:00 Future Hold (Lipitor) 40 mg HS PO 09/19/17 21:00 09/19/17 20:34 (Vitamin D3) 1,000 units DAILY PO 09/19/17 12:00 09/20/17 08:23 (Plavix) 75 mg DAILY PO 09/19/17 13:00 Future Hold (Proscar) 5 mg DAILY PO 09/19/17 12:00 09/20/17 08:23 (Prinivil) 10 mg DAILY PO 09/19/17 12:00 09/20/17 08:23 (Mag-Ox) 400 mg BID PO 09/19/17 21:00 09/20/17 08:24 (Lopressor) 12.5 mg Q12H PO 09/19/17 11:00 09/20/17 11:59 (KCl) 20 meq DAILY PO 09/19/17 13:00 09/20/17 08:25 (Vitamin B6) 100 mg DAILY PO 09/19/17 13:00 09/20/17 08:24 Sodium Chloride 1,000 ml @ 100 mls/hr Q10H IV 09/19/17 12:00 09/20/17 08:16 (Tylenol) 650 mg Q4H PRN PO 09/19/17 09:00 (Zofran Inj) 4 mg Q6H PRN IVP 09/19/17 09:00 (Reglan Inj) 5 mg Q6H PRN IV PUSH 09/19/17 09:00 (Tylenol) 650 mg Q6H PRN PO 09/19/17 09:00 (Percocet 5-325 Mg) 1 tab Q6H PRN PO 09/19/17 09:00 (Percocet 10-325 Mg) 1 tab Q6H PRN PO 09/19/17 09:00 (Morphine Inj) 2 mg Q3H PRN IV PUSH 09/19/17 09:00 (Morphine Inj) 4 mg Q3H PRN IV PUSH 09/19/17 09:00 (Narcan Inj) 0.4 mg UNSCH PRN IV PUSH 09/19/17 09:00 (Ora-Colace) 1 tab BID PO 09/19/17 11:00 09/20/17 08:24 (Milk Of Magnesia Liq) 30 ml Q12H PRN PO 09/19/17 09:00 (Senokot) 17.2 mg Q12H PRN PO 09/19/17 09:00 (Dulcolax Supp) 10 mg DAILY PRN RECTAL 09/19/17 09:00 (Lactulose Liq) 30 ml DAILY PRN PO 09/19/17 09:00 (NS Flush) 2 ml UNSCH PRN IV FLUSH 09/19/17 09:00 (NS Flush) 2 ml BID IV FLUSH 09/19/17 09:00 09/20/17 08:17 (NovoLOG SUPPLEMENTAL SCALE) 1 ACHS SLIDING SCALE SQ 09/19/17 12:00 09/20/17 11:54 (D50w (Vial) Inj) 50 ml UNSCH PRN IV PUSH 09/19/17 09:00 (Glucagon Inj) 1 mg UNSCH PRN OTHER 09/19/17 09:00 (Pill Splitter) 1 ea UNSCH PRN OTHER 09/19/17 13:45 (Flomax) 0.4 mg DAILY PO 09/19/17 16:45 09/20/17 08:25 Pharmacy Profile Note 0 ml @ 0 mls/hr UNSCH OTHER 09/20/17 09:30 Cefazolin Sodium/ Dextrose 50 ml @ 100 mls/hr Q8H IV 09/20/17 15:00 09/20/17 15:55 A/P Assessment and Plan Severe sepsis/ Bacteremia ID consult appreciated. Limited echo without evidence of vegetation. - continue cefazolin and vancomycin per ID. - follow cultures. - IVFs. - PT. Recent TAVR for aortic valve August 27. Cardiology consult appreciated. - continue cardiac regimen. - follow up with cardiology. Elevated troponin At 0.13. Likely s/t sepsis. - cardiology following. - trend trops. - telemetry. 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 He is on chronic anticoagulation on Coumadin. Urology consult appreciated. - continue Weber. - hold anticoagulation. - follow CBC and transfuse as needed. Thrombocytopenia Anticoagulation on hold. - continue to hold anticoagulation. - follow CBC. Diabetes mellitus Well controlled at this time. - continue on sliding scale coverage along with diabetic diet. DVT prophylaxis: Supratherapeutic INR Art Paiz DO Sep 20, 2017 15:19
[2017-09-20] MEDS: ceFAZolin 2 GM PREMIX 50 ML IV SCH ×2 (15:55→23:23)
[2017-09-20] MEDS: ATORVASTATIN 40 MG TAB PO SCH (20:53)
[2017-09-21] VITALS (10 sets, daily range): BP systolic 100–130; BP diastolic 55–60; PULSE 82–95; RESP 17–18; TEMP 97.5–98.2; O2SAT 96–100
[2017-09-21] MEDS: SODIUM CHLOR 0.9% 1000 ML INJ 1,000 ML IV SCH ×2 (05:44→12:42)
[2017-09-21] MEDS: ceFAZolin 2 GM PREMIX 50 ML IV SCH ×3 (06:26→23:01)
[2017-09-21 06:47] LABS: HEMOGLOBIN 8.2 GM/DL (13.0-17.0); MEAN CELL VOLUME 94.7 FL (80.0-100.0); MEAN CORPUSCULAR HEMOGLOBIN 32.3 PG (27.0-34.0); MEAN CORPUSCULAR HGB CONC 34.1 % (32.0-36.0); MEAN PLATELET VOLUME 10.6 FL (7.0-11.0); PLATELET COUNT 41 TH/MM3 (150-450); RED BLOOD COUNT 2.53 MIL/MM3 (4.50-5.90); RED CELL DISTRIBUTION WIDTH 19.6 % (11.6-17.2); WHITE BLOOD COUNT 3.4 TH/MM3 (4.0-11.0)
[2017-09-21 07:09] LABS: INTERNATIONAL NORMALIZED RATIO 2.5 RATIO; PROTHROMBIN TIME - PATIENT 25.4 SEC (9.8-11.6)
[2017-09-21 07:13] LABS: CALCIUM 8.6 MG/DL (8.5-10.1); CREATININE 1.44 MG/DL (0.60-1.30); MAGNESIUM 2.2 MG/DL (1.5-2.5)
[2017-09-21] MEDS: SODIUM CHLORIDE 0.9% FLUSH 10 ML FLUSH IV FLUSH SCH ×2 (07:25→21:00)
[2017-09-21] MEDS: INSULIN ASPART SUPPLEMENTAL SCALE SQ SCH ×4 (07:25→21:05)
[2017-09-21] MEDS: CHOLECALCIFEROL (VIT D3) 1000 UNIT TAB PO SCH (08:14)
[2017-09-21] MEDS: FINASTERIDE 5 MG TAB PO SCH (08:14)
[2017-09-21] MEDS: LISINOPRIL 10 MG TAB PO SCH (08:14)
[2017-09-21] MEDS: DOCUSATE SODIUM 50 MG/SENNA 8.6 MG TAB PO SCH ×2 (08:14→21:00)
[2017-09-21] MEDS: MAGNESIUM OXIDE 400 MG TAB PO SCH ×2 (08:15→21:04)
[2017-09-21] MEDS: PYRIDOXINE HCL 50 MG TAB PO SCH (08:15)
[2017-09-21] MEDS: TAMSULOSIN HCL 0.4 MG CAP PO SCH (08:15)
[2017-09-21] MEDS: ALLOPURINOL 100 MG TAB PO SCH ×2 (08:15→21:05)
[2017-09-21] MEDS: POTASSIUM CHLORIDE 20 MEQ CONTROLLED RELEASE TAB PO SCH (08:18)
--- NOTE | 2017-09-21 10:07 | HHI.PR ---
Subjective Patient symptoms today Pt seen and examined. Feels well. Urine clear. Objective Vital Signs Vital Signs Date Time Temp Pulse Resp B/P (MAP) Pulse Ox O2 Delivery O2 Flow Rate FiO2 09/21/17 08:46 94 09/21/17 08:22 97.8 93 18 130/58 (82) 97 09/21/17 05:10 98.2 90 17 114/56 (75) 96 09/21/17 00:30 97.7 91 17 110/58 (75) 96 09/21/17 00:00 93 09/20/17 20:02 98.2 91 17 113/56 (75) 97 09/20/17 16:10 89 09/20/17 15:54 99.4 81 20 96/52 (67) 96 09/20/17 12:31 95 09/20/17 11:36 99.2 98 20 121/56 (77) 96 Intake & Output 09/21/17 09/21/17 06:59 18:59 Output Total 800 ml Balance -800 ml Output Urine Total 800 ml # Bowel Movements 1 1 Result Diagram: 09/21/17 0530 09/21/17 0530 Objective Remarks Abd:soft,nt,nd López: slight blood tinged Ext: neg C/C/E 09/21 Abd:soft.nt,nd López with clear urine Medications and IVs Current Medications Medications (Trade) Dose Ordered Sig/Nella Route Start Time Stop Time Status Last Admin (Zyloprim) 100 mg BID PO 09/19/17 12:00 09/21/17 08:15 (Aspirin Chew) 81 mg DAILY CHEW 09/19/17 13:00 Future Hold (Lipitor) 40 mg HS PO 09/19/17 21:00 09/20/17 20:53 (Vitamin D3) 1,000 units DAILY PO 09/19/17 12:00 09/21/17 08:14 (Plavix) 75 mg DAILY PO 09/19/17 13:00 Future Hold (Proscar) 5 mg DAILY PO 09/19/17 12:00 09/21/17 08:14 (Prinivil) 10 mg DAILY PO 09/19/17 12:00 09/21/17 08:14 (Mag-Ox) 400 mg BID PO 09/19/17 21:00 09/21/17 08:15 (Lopressor) 12.5 mg Q12H PO 09/19/17 11:00 09/20/17 11:59 (KCl) 20 meq DAILY PO 09/19/17 13:00 09/21/17 08:18 (Vitamin B6) 100 mg DAILY PO 09/19/17 13:00 09/21/17 08:15 Sodium Chloride 1,000 ml @ 100 mls/hr Q10H IV 09/19/17 12:00 09/21/17 05:44 (Tylenol) 650 mg Q4H PRN PO 09/19/17 09:00 (Zofran Inj) 4 mg Q6H PRN IVP 09/19/17 09:00 (Reglan Inj) 5 mg Q6H PRN IV PUSH 09/19/17 09:00 (Tylenol) 650 mg Q6H PRN PO 09/19/17 09:00 (Percocet 5-325 Mg) 1 tab Q6H PRN PO 09/19/17 09:00 (Percocet 10-325 Mg) 1 tab Q6H PRN PO 09/19/17 09:00 (Morphine Inj) 2 mg Q3H PRN IV PUSH 09/19/17 09:00 (Morphine Inj) 4 mg Q3H PRN IV PUSH 09/19/17 09:00 (Narcan Inj) 0.4 mg UNSCH PRN IV PUSH 09/19/17 09:00 (Ora-Colace) 1 tab BID PO 09/19/17 11:00 09/21/17 08:14 (Milk Of Magnesia Liq) 30 ml Q12H PRN PO 09/19/17 09:00 (Senokot) 17.2 mg Q12H PRN PO 09/19/17 09:00 (Dulcolax Supp) 10 mg DAILY PRN RECTAL 09/19/17 09:00 (Lactulose Liq) 30 ml DAILY PRN PO 09/19/17 09:00 (NS Flush) 2 ml UNSCH PRN IV FLUSH 09/19/17 09:00 (NS Flush) 2 ml BID IV FLUSH 09/19/17 09:00 09/20/17 21:19 (NovoLOG SUPPLEMENTAL SCALE) 1 ACHS SLIDING SCALE SQ 09/19/17 12:00 09/20/17 21:19 (D50w (Vial) Inj) 50 ml UNSCH PRN IV PUSH 09/19/17 09:00 (Glucagon Inj) 1 mg UNSCH PRN OTHER 09/19/17 09:00 (Pill Splitter) 1 ea UNSCH PRN OTHER 09/19/17 13:45 (Flomax) 0.4 mg DAILY PO 09/19/17 16:45 09/21/17 08:15 Pharmacy Profile Note 0 ml @ 0 mls/hr UNSCH OTHER 09/20/17 09:30 Cefazolin Sodium/ Dextrose 50 ml @ 100 mls/hr Q8H IV 09/20/17 15:00 09/21/17 06:26 Vancomycin HCl 1250 mg/Sodium Chloride 262.5 ml @ 250 mls/hr ONCE ONCE IV 09/21/17 14:00 09/21/17 15:02 Assessment and Plan Assessment and Plan 87 y.o male admitted with SIBLEY and UTI with sepsis B/C with GNR's Continue ABx Maintain lópez; irrigate prn 09/21 87 y.o male with SIBLEY/AUR with UTI with sepsis Continue ABx Maintain lópez. Continue Flomax Ganesh Gutierrez DO Sep 21, 2017 10:07
[2017-09-21] MEDS: METOPROLOL TARTRATE 25 MG TAB PO SCH ×2 (11:30→23:00)
[2017-09-21] MEDS ORDERED: VANCOMYCIN INJ 1,250 MG in SODIUM CHLOR 0.9% 250 ML INJ 250 ML IV ONE (14:00)
[2017-09-21] MEDS ORDERED: ALPRAZolam 0.25 MG TAB PO ONE (14:00)
--- NOTE | 2017-09-21 14:05 | HHI.PR ---
Subjective Remarks The patient wanted to go home tomorrow. He had no acute complaints. He did state that he was anxious. He does not have much of an appetite when in the hospital. His was at the bedside and their questions were answered. Discussed with nursing. Objective Vitals Vital Signs Date Time Temp Pulse Resp B/P (MAP) Pulse Ox O2 Delivery O2 Flow Rate FiO2 09/21/17 12:37 97.7 95 18 115/58 (77) 99 09/21/17 12:05 92 09/21/17 08:46 94 09/21/17 08:22 97.8 93 18 130/58 (82) 97 09/21/17 05:10 98.2 90 17 114/56 (75) 96 09/21/17 00:30 97.7 91 17 110/58 (75) 96 09/21/17 00:00 93 09/20/17 20:02 98.2 91 17 113/56 (75) 97 09/20/17 16:10 89 09/20/17 15:54 99.4 81 20 96/52 (67) 96 I/O 09/20/17 09/20/17 09/20/17 09/21/17 09/21/17 09/21/17 07:00 15:00 23:00 07:00 15:00 23:00 Intake Total 450 ml 100 ml 972.5 ml Output Total 350 ml 500 ml 450 ml 800 ml Balance 100 ml -400 ml 522.5 ml -800 ml Intake Oral 450 ml 660 ml IV Total 100 ml 312.5 ml Output Urine Total 350 ml 500 ml 450 ml 800 ml # Bowel Movements 2 1 1 1 Result Diagram: 09/21/17 0530 09/21/17 0530 Imaging Last Impressions Chest X-Ray 09/19/17 0538 Signed Impressions: Service Date/Time: Tuesday, September 19, 2017 06:10 - CONCLUSION: No infiltrates seen. Matt Bhatti MD Abdomen/Pelvis CT 09/19/17 0000 Signed Impressions: Service Date/Time: Tuesday, September 19, 2017 07:14 - CONCLUSION: 1. Bilateral renal calculi and simple cysts. 2. No evidence of obstructive uropathy. 3. Prostatomegaly. 4. Uncomplicated diverticulosis. 5. No acute process. Washington Parra MD Objective Remarks GENERAL: This is a well-nourished, well-developed patient, in no apparent distress. SKIN: No rashes, ecchymoses or lesions. Cool and dry. HEAD: Atraumatic. Normocephalic. No temporal or scalp tenderness. EYES: Pupils equal round and reactive. Extraocular motions intact. No scleral icterus. No injection or drainage. ENT: Nose without bleeding, purulent drainage or septal hematoma. Throat without erythema, tonsillar hypertrophy or exudate. Uvula midline. Airway patent. NECK: Trachea midline. No JVD or lymphadenopathy. Supple, nontender, no meningeal signs. CARDIOVASCULAR: Irregular rate and rhythm without gallops, or rubs. S1-S2 no S3 or S4 RESPIRATORY: Clear to auscultation. No wheezes, rales, or rhonchi. Decreased breath sounds bilaterally GASTROINTESTINAL: Abdomen soft, non-tender, nondistended. No hepato-splenomegaly , or palpable masses. No guarding. : Weber in place with paulo urine. MUSCULOSKELETAL: Extremities without clubbing, cyanosis. TR LE edema noted. NEUROLOGICAL: Awake and alert. Cranial nerves II through XII intact. Motor and sensory grossly within normal limits. 4 out of 5 muscle strength in all muscle groups. Normal speech. PSYCH: Mood and affect appropriate. Medications and IVs Current Medications Medications (Trade) Dose Ordered Sig/Nella Route Start Time Stop Time Status Last Admin (Zyloprim) 100 mg BID PO 09/19/17 12:00 09/21/17 08:15 (Aspirin Chew) 81 mg DAILY CHEW 09/19/17 13:00 Future Hold (Lipitor) 40 mg HS PO 09/19/17 21:00 09/20/17 20:53 (Vitamin D3) 1,000 units DAILY PO 09/19/17 12:00 09/21/17 08:14 (Plavix) 75 mg DAILY PO 09/19/17 13:00 Future Hold (Proscar) 5 mg DAILY PO 09/19/17 12:00 09/21/17 08:14 (Prinivil) 10 mg DAILY PO 09/19/17 12:00 Future Hold 09/21/17 08:14 (Mag-Ox) 400 mg BID PO 09/19/17 21:00 09/21/17 08:15 (Lopressor) 12.5 mg Q12H PO 09/19/17 11:00 09/21/17 11:30 (KCl) 20 meq DAILY PO 09/19/17 13:00 09/21/17 08:18 (Vitamin B6) 100 mg DAILY PO 09/19/17 13:00 09/21/17 08:15 Sodium Chloride 1,000 ml @ 75 mls/hr [id number] IV 09/19/17 12:00 09/21/17 12:42 (Tylenol) 650 mg Q4H PRN PO 09/19/17 09:00 (Zofran Inj) 4 mg Q6H PRN IVP 09/19/17 09:00 (Reglan Inj) 5 mg Q6H PRN IV PUSH 09/19/17 09:00 (Tylenol) 650 mg Q6H PRN PO 09/19/17 09:00 (Percocet 5-325 Mg) 1 tab Q6H PRN PO 09/19/17 09:00 (Percocet 10-325 Mg) 1 tab Q6H PRN PO 09/19/17 09:00 (Morphine Inj) 2 mg Q3H PRN IV PUSH 09/19/17 09:00 (Morphine Inj) 4 mg Q3H PRN IV PUSH 09/19/17 09:00 (Narcan Inj) 0.4 mg UNSCH PRN IV PUSH 09/19/17 09:00 (Ora-Colace) 1 tab BID PO 09/19/17 11:00 09/21/17 08:14 (Milk Of Magnesia Liq) 30 ml Q12H PRN PO 09/19/17 09:00 (Senokot) 17.2 mg Q12H PRN PO 09/19/17 09:00 (Dulcolax Supp) 10 mg DAILY PRN RECTAL 09/19/17 09:00 (Lactulose Liq) 30 ml DAILY PRN PO 09/19/17 09:00 (NS Flush) 2 ml UNSCH PRN IV FLUSH 09/19/17 09:00 (NS Flush) 2 ml BID IV FLUSH 09/19/17 09:00 09/20/17 21:19 (NovoLOG SUPPLEMENTAL SCALE) 1 ACHS SLIDING SCALE SQ 09/19/17 12:00 09/21/17 11:30 (D50w (Vial) Inj) 50 ml UNSCH PRN IV PUSH 09/19/17 09:00 (Glucagon Inj) 1 mg UNSCH PRN OTHER 09/19/17 09:00 (Pill Splitter) 1 ea UNSCH PRN OTHER 09/19/17 13:45 (Flomax) 0.4 mg DAILY PO 09/19/17 16:45 09/21/17 08:15 Pharmacy Profile Note 0 ml @ 0 mls/hr UNSCH OTHER 09/20/17 09:30 Cefazolin Sodium/ Dextrose 50 ml @ 100 mls/hr Q8H IV 09/20/17 15:00 09/21/17 06:26 Vancomycin HCl 1250 mg/Sodium Chloride 262.5 ml @ 250 mls/hr ONCE ONCE IV 09/21/17 14:00 09/21/17 15:02 09/21/17 12:40 A/P Assessment and Plan Severe sepsis/ Bacteremia ID consult appreciated. Limited echo without evidence of vegetation. - continue cefazolin and vancomycin per ID. - follow repeat blood cultures. - IVFs. - PT/ OT. 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 He is on chronic anticoagulation with Coumadin, Plavix and aspirin. Urology consult appreciated. Platelet count continues to decrease. - continue Weber per urology. - hold anticoagulation. - follow CBC and transfuse as needed. Acute renal failure Appears to be secondary to sepsis, dehydration. Improving with fluids. - Continue IV fluids. - Follow BMP and avoid nephrotoxins. Recent TAVR for aortic valve August 27. Cardiology consult appreciated. - continue cardiac regimen. - follow up with cardiology. Elevated troponin Troponin peaked at 0.13. Likely s/t sepsis. - cardiology following. - telemetry. Diabetes mellitus Well controlled at this time. - continue on sliding scale coverage along with diabetic diet. Anxiety The patient endorses anxiety. - Low-dose of Xanax as needed. DVT prophylaxis: Supratherapeutic INR Art Paiz DO Sep 21, 2017 14:05
--- NOTE | 2017-09-21 14:27 | PD.CARD.PN ---
Subjective Subjective Remarks Feeling better. No complaints Objective Medications Current Medications Medications (Trade) Dose Ordered Sig/Nella Route Start Time Stop Time Status Last Admin (Zyloprim) 100 mg BID PO 09/19/17 12:00 09/21/17 08:15 (Aspirin Chew) 81 mg DAILY CHEW 09/19/17 13:00 Future Hold (Lipitor) 40 mg HS PO 09/19/17 21:00 09/20/17 20:53 (Vitamin D3) 1,000 units DAILY PO 09/19/17 12:00 09/21/17 08:14 (Plavix) 75 mg DAILY PO 09/19/17 13:00 Future Hold (Proscar) 5 mg DAILY PO 09/19/17 12:00 09/21/17 08:14 (Prinivil) 10 mg DAILY PO 09/19/17 12:00 Future Hold 09/21/17 08:14 (Mag-Ox) 400 mg BID PO 09/19/17 21:00 09/21/17 08:15 (Lopressor) 12.5 mg Q12H PO 09/19/17 11:00 09/21/17 11:30 (KCl) 20 meq DAILY PO 09/19/17 13:00 09/21/17 08:18 (Vitamin B6) 100 mg DAILY PO 09/19/17 13:00 09/21/17 08:15 Sodium Chloride 1,000 ml @ 75 mls/hr [id number] IV 09/19/17 12:00 09/21/17 12:42 (Tylenol) 650 mg Q4H PRN PO 09/19/17 09:00 (Zofran Inj) 4 mg Q6H PRN IVP 09/19/17 09:00 (Reglan Inj) 5 mg Q6H PRN IV PUSH 09/19/17 09:00 (Tylenol) 650 mg Q6H PRN PO 09/19/17 09:00 (Percocet 5-325 Mg) 1 tab Q6H PRN PO 09/19/17 09:00 (Percocet 10-325 Mg) 1 tab Q6H PRN PO 09/19/17 09:00 (Morphine Inj) 2 mg Q3H PRN IV PUSH 09/19/17 09:00 (Morphine Inj) 4 mg Q3H PRN IV PUSH 09/19/17 09:00 (Narcan Inj) 0.4 mg UNSCH PRN IV PUSH 09/19/17 09:00 (Ora-Colace) 1 tab BID PO 09/19/17 11:00 09/21/17 08:14 (Milk Of Magnesia Liq) 30 ml Q12H PRN PO 09/19/17 09:00 (Senokot) 17.2 mg Q12H PRN PO 09/19/17 09:00 (Dulcolax Supp) 10 mg DAILY PRN RECTAL 09/19/17 09:00 (Lactulose Liq) 30 ml DAILY PRN PO 09/19/17 09:00 (NS Flush) 2 ml UNSCH PRN IV FLUSH 09/19/17 09:00 (NS Flush) 2 ml BID IV FLUSH 09/19/17 09:00 09/20/17 21:19 (NovoLOG SUPPLEMENTAL SCALE) 1 ACHS SLIDING SCALE SQ 09/19/17 12:00 09/21/17 11:30 (D50w (Vial) Inj) 50 ml UNSCH PRN IV PUSH 09/19/17 09:00 (Glucagon Inj) 1 mg UNSCH PRN OTHER 09/19/17 09:00 (Pill Splitter) 1 ea UNSCH PRN OTHER 09/19/17 13:45 (Flomax) 0.4 mg DAILY PO 09/19/17 16:45 09/21/17 08:15 Pharmacy Profile Note 0 ml @ 0 mls/hr UNSCH OTHER 09/20/17 09:30 Cefazolin Sodium/ Dextrose 50 ml @ 100 mls/hr Q8H IV 09/20/17 15:00 09/21/17 14:25 Vancomycin HCl 1250 mg/Sodium Chloride 262.5 ml @ 250 mls/hr ONCE ONCE IV 09/21/17 14:00 09/21/17 15:02 09/21/17 12:40 (Xanax) 0.125 mg Q4H PRN PO 09/21/17 14:00 Vital Signs / I&O Vital Signs Date Time Temp Pulse Resp B/P (MAP) Pulse Ox O2 Delivery O2 Flow Rate FiO2 09/21/17 12:37 97.7 95 18 115/58 (77) 99 09/21/17 12:05 92 09/21/17 08:46 94 09/21/17 08:22 97.8 93 18 130/58 (82) 97 09/21/17 05:10 98.2 90 17 114/56 (75) 96 09/21/17 00:30 97.7 91 17 110/58 (75) 96 09/21/17 00:00 93 09/20/17 20:02 98.2 91 17 113/56 (75) 97 09/20/17 16:10 89 09/20/17 15:54 99.4 81 20 96/52 (67) 96 I/O 09/20/17 09/20/17 09/20/17 09/21/17 09/21/17 09/21/17 07:00 15:00 23:00 07:00 15:00 23:00 Intake Total 450 ml 100 ml 972.5 ml 262.5 ml Output Total 350 ml 500 ml 450 ml 800 ml Balance 100 ml -400 ml 522.5 ml -800 ml 262.5 ml Intake Oral 450 ml 660 ml IV Total 100 ml 312.5 ml 262.5 ml Output Urine Total 350 ml 500 ml 450 ml 800 ml # Bowel Movements 2 1 1 1 Physical Exam Alert Chest yfn CV S1S2 irr irr, no AR murmur Abd sodt Ext no CCE Laboratory Laboratory Tests Test 09/20/17 16:55 09/21/17 05:30 Troponin I 0.09 NG/ML White Blood Count 3.4 TH/MM3 Red Blood Count 2.53 MIL/MM3 Hemoglobin 8.2 GM/DL Hematocrit 24.0 % Mean Corpuscular Volume 94.7 FL Mean Corpuscular Hemoglobin 32.3 PG Mean Corpuscular Hemoglobin Concent 34.1 % Red Cell Distribution Width 19.6 % Platelet Count 41 TH/MM3 Mean Platelet Volume 10.6 FL Prothrombin Time 25.4 SEC Prothromb Time International Ratio 2.5 RATIO Blood Urea Nitrogen 50 MG/DL Creatinine 1.44 MG/DL Random Glucose 129 MG/DL Calcium Level 8.6 MG/DL Magnesium Level 2.2 MG/DL Sodium Level 139 MEQ/L Potassium Level 3.7 MEQ/L Chloride Level 106 MEQ/L Carbon Dioxide Level 23.0 MEQ/L Anion Gap 10 MEQ/L Estimat Glomerular Filtration Rate 46 ML/MIN Assessment and Plan Problem List: (1) Warfarin-induced coagulopathy ICD Codes: D68.32 - Hemorrhagic disorder due to extrinsic circulating 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; T45.515A - Adverse effect of 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, initial encounter (2) Status post transcatheter aortic valve replacement (TAVR) using bioprosthesis ICD Codes: Z95.3 - Presence of xenogenic heart valve (3) Atrial fibrillation ICD Codes: I48.91 - Atrial fibrillation Status: Acute (4) Sepsis ICD Codes: A41.9 - Sepsis, unspecified organism Status: Acute (5) CAD (coronary artery disease) ICD Codes: I25.10 - Atherosclerotic heart disease of [place] coronary artery without angina pectoris Problem Qualifiers (1) Sepsis: Qualified Codes: A41.9 - Sepsis, unspecified organism Greg Calzada MD Sep 21, 2017 14:27
--- NOTE | 2017-09-21 14:37 | PD.CARD.PN ---
Subjective Subjective Remarks Feeling better. No complaints Objective Medications Current Medications Medications (Trade) Dose Ordered Sig/Enlla Route Start Time Stop Time Status Last Admin (Zyloprim) 100 mg BID PO 09/19/17 12:00 09/21/17 08:15 (Aspirin Chew) 81 mg DAILY CHEW 09/19/17 13:00 Future Hold (Lipitor) 40 mg HS PO 09/19/17 21:00 09/20/17 20:53 (Vitamin D3) 1,000 units DAILY PO 09/19/17 12:00 09/21/17 08:14 (Plavix) 75 mg DAILY PO 09/19/17 13:00 Future Hold (Proscar) 5 mg DAILY PO 09/19/17 12:00 09/21/17 08:14 (Prinivil) 10 mg DAILY PO 09/19/17 12:00 Future Hold 09/21/17 08:14 (Mag-Ox) 400 mg BID PO 09/19/17 21:00 09/21/17 08:15 (Lopressor) 12.5 mg Q12H PO 09/19/17 11:00 09/21/17 11:30 (KCl) 20 meq DAILY PO 09/19/17 13:00 09/21/17 08:18 (Vitamin B6) 100 mg DAILY PO 09/19/17 13:00 09/21/17 08:15 Sodium Chloride 1,000 ml @ 75 mls/hr [id number] IV 09/19/17 12:00 09/21/17 12:42 (Tylenol) 650 mg Q4H PRN PO 09/19/17 09:00 (Zofran Inj) 4 mg Q6H PRN IVP 09/19/17 09:00 (Reglan Inj) 5 mg Q6H PRN IV PUSH 09/19/17 09:00 (Tylenol) 650 mg Q6H PRN PO 09/19/17 09:00 (Percocet 5-325 Mg) 1 tab Q6H PRN PO 09/19/17 09:00 (Percocet 10-325 Mg) 1 tab Q6H PRN PO 09/19/17 09:00 (Morphine Inj) 2 mg Q3H PRN IV PUSH 09/19/17 09:00 (Morphine Inj) 4 mg Q3H PRN IV PUSH 09/19/17 09:00 (Narcan Inj) 0.4 mg UNSCH PRN IV PUSH 09/19/17 09:00 (Ora-Colace) 1 tab BID PO 09/19/17 11:00 09/21/17 08:14 (Milk Of Magnesia Liq) 30 ml Q12H PRN PO 09/19/17 09:00 (Senokot) 17.2 mg Q12H PRN PO 09/19/17 09:00 (Dulcolax Supp) 10 mg DAILY PRN RECTAL 09/19/17 09:00 (Lactulose Liq) 30 ml DAILY PRN PO 09/19/17 09:00 (NS Flush) 2 ml UNSCH PRN IV FLUSH 09/19/17 09:00 (NS Flush) 2 ml BID IV FLUSH 09/19/17 09:00 09/20/17 21:19 (NovoLOG SUPPLEMENTAL SCALE) 1 ACHS SLIDING SCALE SQ 09/19/17 12:00 09/21/17 11:30 (D50w (Vial) Inj) 50 ml UNSCH PRN IV PUSH 09/19/17 09:00 (Glucagon Inj) 1 mg UNSCH PRN OTHER 09/19/17 09:00 (Pill Splitter) 1 ea UNSCH PRN OTHER 09/19/17 13:45 (Flomax) 0.4 mg DAILY PO 09/19/17 16:45 09/21/17 08:15 Pharmacy Profile Note 0 ml @ 0 mls/hr UNSCH OTHER 09/20/17 09:30 Cefazolin Sodium/ Dextrose 50 ml @ 100 mls/hr Q8H IV 09/20/17 15:00 09/21/17 14:25 Vancomycin HCl 1250 mg/Sodium Chloride 262.5 ml @ 250 mls/hr ONCE ONCE IV 09/21/17 14:00 09/21/17 15:02 09/21/17 12:40 (Xanax) 0.125 mg Q4H PRN PO 09/21/17 14:00 Vital Signs / I&O Vital Signs Date Time Temp Pulse Resp B/P (MAP) Pulse Ox O2 Delivery O2 Flow Rate FiO2 09/21/17 12:37 97.7 95 18 115/58 (77) 99 09/21/17 12:05 92 09/21/17 08:46 94 09/21/17 08:22 97.8 93 18 130/58 (82) 97 09/21/17 05:10 98.2 90 17 114/56 (75) 96 09/21/17 00:30 97.7 91 17 110/58 (75) 96 09/21/17 00:00 93 09/20/17 20:02 98.2 91 17 113/56 (75) 97 09/20/17 16:10 89 09/20/17 15:54 99.4 81 20 96/52 (67) 96 I/O 09/20/17 09/20/17 09/20/17 09/21/17 09/21/17 09/21/17 07:00 15:00 23:00 07:00 15:00 23:00 Intake Total 450 ml 100 ml 972.5 ml 262.5 ml Output Total 350 ml 500 ml 450 ml 800 ml Balance 100 ml -400 ml 522.5 ml -800 ml 262.5 ml Intake Oral 450 ml 660 ml IV Total 100 ml 312.5 ml 262.5 ml Output Urine Total 350 ml 500 ml 450 ml 800 ml # Bowel Movements 2 1 1 1 Physical Exam Alert Chest yfn CV S1S2 irr irr, 1/6 ARJUN, no AR murmur Abd soft Ext no CCE Laboratory Laboratory Tests Test 09/20/17 16:55 09/21/17 05:30 Troponin I 0.09 NG/ML White Blood Count 3.4 TH/MM3 Red Blood Count 2.53 MIL/MM3 Hemoglobin 8.2 GM/DL Hematocrit 24.0 % Mean Corpuscular Volume 94.7 FL Mean Corpuscular Hemoglobin 32.3 PG Mean Corpuscular Hemoglobin Concent 34.1 % Red Cell Distribution Width 19.6 % Platelet Count 41 TH/MM3 Mean Platelet Volume 10.6 FL Prothrombin Time 25.4 SEC Prothromb Time International Ratio 2.5 RATIO Blood Urea Nitrogen 50 MG/DL Creatinine 1.44 MG/DL Random Glucose 129 MG/DL Calcium Level 8.6 MG/DL Magnesium Level 2.2 MG/DL Sodium Level 139 MEQ/L Potassium Level 3.7 MEQ/L Chloride Level 106 MEQ/L Carbon Dioxide Level 23.0 MEQ/L Anion Gap 10 MEQ/L Estimat Glomerular Filtration Rate 46 ML/MIN Assessment and Plan Problem List: (1) Warfarin-induced coagulopathy ICD Codes: D68.32 - Hemorrhagic disorder due to extrinsic circulating 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; T45.515A - Adverse effect of 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, initial encounter Plan: INR down to 2.5mg; resume warfarin (2) Status post transcatheter aortic valve replacement (TAVR) using bioprosthesis ICD Codes: Z95.3 - Presence of xenogenic heart valve (3) Atrial fibrillation ICD Codes: I48.91 - Atrial fibrillation Status: Acute (4) Sepsis ICD Codes: A41.9 - Sepsis, unspecified organism Status: Acute (5) CAD (coronary artery disease) ICD Codes: I25.10 - Atherosclerotic heart disease of [place] coronary artery without angina pectoris Assessment and Plan Will resume ASA 81mg. Resume warfarin. Problem Qualifiers (1) Sepsis: Qualified Codes: A41.9 - Sepsis, unspecified organism Greg Calzada MD Sep 21, 2017 14:37
--- NOTE | 2017-09-21 14:56 | HHI.IDPN ---
Subjective Subjective Remarks Mr. Miller is a 87-year-old male with past medical history significant for severe aortic stenosis, CHF. Patient was deemed as a candidate for Transcatheter aortic valve replacement(TAVR) and electively underwent procedure on 08/27/[address]Cary Calle per Operative report. Patient reports he had a transvenous temporary pacemaker that was removed from his right neck within 1 day.He also reports use of right groin for the TAVR access. He reports preoperatively there was difficulty placing a lópez catheter and he had hematuria and Urology was involved. He goes on to report he was discharged with a lópez catheter in place. He reports enroute home while on hospital premises he had a fall with abrasions to bilateral knees and left side of his forehead with a gash on his nose and nasal bleed. He was in the ER for observation and was discharged home after few hours. Post operatively he otherwise did ok from cardiac standpoint. He did see the urologist twice and ultimately upon his request the lópez catheter was removed. One day prior to admission patient's reports he became acutely confused( not acting his normal self) and had high grade fevers, urinary symptoms. He was brought in by ambulance after having fevers and dysuria and change in mental status at home. In the emergency department to have a urinary tract infection, will be admitted for urinary tract infection and severe sepsis. Patient had blood cultures drawn on admission which are positive 4 out of 4 bottles for Gram positive cocci in pairs and clusters. ID consulted for evaluation and Mment of Severe Sepsis, GP bacteremia, abnormal UA. Overnight events reviewed. No fevers No rash no diarrhea Echo read as valves could not be clearly visualized. Discussed with patient possible need for JULIO. Will discuss with Dr. lund. Antibiotics Ancef IV Vancomycin IV Lines Line sites with no e/o infection Past Medical History reviewed Allergies: Coded Allergies: niacin (Verified Allergy, Unknown, 09/19/17) sitagliptin (Unverified Adverse Reaction, Severe, STOMACH PAIN, 09/19/17) Objective . Vital Signs Date Time Temp Pulse Resp B/P (MAP) Pulse Ox O2 Delivery O2 Flow Rate FiO2 09/21/17 12:37 97.7 95 18 115/58 (77) 99 09/21/17 12:05 92 09/21/17 08:46 94 09/21/17 08:22 97.8 93 18 130/58 (82) 97 09/21/17 05:10 98.2 90 17 114/56 (75) 96 09/21/17 00:30 97.7 91 17 110/58 (75) 96 09/21/17 00:00 93 09/20/17 20:02 98.2 91 17 113/56 (75) 97 09/20/17 16:10 89 09/20/17 15:54 99.4 81 20 96/52 (67) 96 09/21/17 09/21/17 09/22/17 15:00 23:00 07:00 Intake Total 262.5 ml Balance 262.5 ml IV Total 262.5 ml # Bowel Movements 1 . Laboratory Tests Test 09/20/17 05:45 09/21/17 05:30 White Blood Count 5.0 TH/MM3 3.4 TH/MM3 Red Blood Count 2.71 MIL/MM3 2.53 MIL/MM3 Hemoglobin 8.9 GM/DL 8.2 GM/DL Hematocrit 25.7 % 24.0 % Mean Corpuscular Volume 94.7 FL 94.7 FL Mean Corpuscular Hemoglobin 32.7 PG 32.3 PG Mean Corpuscular Hemoglobin Concent 34.5 % 34.1 % Red Cell Distribution Width 19.3 % 19.6 % Platelet Count 59 TH/MM3 41 TH/MM3 Mean Platelet Volume 11.5 FL 10.6 FL Neutrophils (%) (Auto) 92.0 % Lymphocytes (%) (Auto) 2.5 % Monocytes (%) (Auto) 4.2 % Eosinophils (%) (Auto) 0.5 % Basophils (%) (Auto) 0.8 % Neutrophils # (Auto) 4.6 TH/MM3 Lymphocytes # (Auto) 0.1 TH/MM3 Monocytes # (Auto) 0.2 TH/MM3 Eosinophils # (Auto) 0.0 TH/MM3 Basophils # (Auto) 0.0 TH/MM3 CBC Comment AUTO DIFF Differential Total Cells Counted 100 Neutrophils % (Manual) 61 % Band Neutrophils % 35 % Lymphocytes % 1 % Monocytes % 2 % Neutrophils # (Manual) 4.9 TH/MM3 Metamyelocytes 1 % Differential Comment FINAL DIFF MANUAL Platelet Estimate LOW Platelet Morphology Comment NORMAL Ovalocytes 1+ Laboratory Tests Test 09/19/17 20:23 09/19/17 23:42 09/20/17 05:45 09/20/17 10:21 Lactic Acid Level 3.4 mmol/L 2.2 mmol/L 1.4 mmol/L Total Creatine Kinase 92 U/L Troponin I 0.13 NG/ML Blood Urea Nitrogen 49 MG/DL Creatinine 1.71 MG/DL Random Glucose 123 MG/DL Total Protein 6.1 GM/DL Albumin 2.8 GM/DL Calcium Level 8.5 MG/DL Phosphorus Level 3.1 MG/DL Magnesium Level 2.2 MG/DL Alkaline Phosphatase 191 U/L Aspartate Amino Transf (AST/SGOT) 102 U/L Alanine Aminotransferase (ALT/SGPT) 62 U/L Total Bilirubin 2.0 MG/DL Sodium Level 137 MEQ/L Potassium Level 3.8 MEQ/L Chloride Level 105 MEQ/L Carbon Dioxide Level 22.8 MEQ/L Anion Gap 9 MEQ/L Estimat Glomerular Filtration Rate 38 ML/MIN Hemoglobin A1c 6.9 % Free Thyroxine 0.91 NG/DL Thyroid Stimulating Hormone 3rd Gen 0.943 uIU/ML Test 09/20/17 16:55 09/21/17 05:30 Troponin I 0.09 NG/ML Blood Urea Nitrogen 50 MG/DL Creatinine 1.44 MG/DL Random Glucose 129 MG/DL Calcium Level 8.6 MG/DL Magnesium Level 2.2 MG/DL Sodium Level 139 MEQ/L Potassium Level 3.7 MEQ/L Chloride Level 106 MEQ/L Carbon Dioxide Level 23.0 MEQ/L Anion Gap 10 MEQ/L Estimat Glomerular Filtration Rate 46 ML/MIN Microbiology Date/Time Source Procedure Growth Status 09/21/17 05:43 Blood Peripheral Aerobic Blood Culture Pending Received 09/21/17 05:43 Blood Peripheral Anaerobic Blood Culture Pending Received 09/21/17 05:30 Blood Peripheral Aerobic Blood Culture Pending Received 09/21/17 05:30 Blood Peripheral Anaerobic Blood Culture Pending Received 09/19/17 05:45 Blood Peripheral Aerobic Blood Culture - Preliminary Staphylococcus Aureus Resulted 09/19/17 05:45 Anaerobic Blood Culture - Preliminary Staphylococcus Aureus Resulted 09/19/17 05:35 Blood Peripheral Aerobic Blood Culture - Preliminary Staphylococcus Aureus Resulted 09/19/17 05:35 Anaerobic Blood Culture - Preliminary Staphylococcus Aureus Resulted 09/19/17 05:40 Nasal Washing Influenza Types A,B Antigen (ALVARO) - Final NEGATIVE FOR FLU A AND B ANTIGEN.... Complete 09/19/17 05:40 Urine Catheterized Urine Urine Culture - Preliminary Pseudomonas Aeruginosa Resulted Imaging Last Impressions Chest X-Ray 09/19/17 0538 Signed Impressions: Service Date/Time: Tuesday, September 19, 2017 06:10 - CONCLUSION: No infiltrates seen. Matt Bhatti MD Abdomen/Pelvis CT 09/19/17 0000 Signed Impressions: Service Date/Time: Tuesday, September 19, 2017 07:14 - CONCLUSION: 1. Bilateral renal calculi and simple cysts. 2. No evidence of obstructive uropathy. 3. Prostatomegaly. 4. Uncomplicated diverticulosis. 5. No acute process. Washington Parra MD Physical Exam GENERAL: This is a well-nourished, well-developed patient, in no apparent distress. SKIN: No rashes, ecchymoses or lesions. Cool and dry. HEAD: Atraumatic. Normocephalic. No temporal or scalp tenderness. Old bruise on his forehead with no e.o infection. Nose with no erythema no bleeding noted. EYES: Pupils equal round and reactive. Extraocular motions intact. No scleral icterus. No injection or drainage. ENT: Nose without bleeding, purulent drainage or septal hematoma. Throat without erythema, tonsillar hypertrophy or exudate. Uvula midline. Airway patent. NECK: Trachea midline. Supple, nontender, no meningeal signs. CARDIOVASCULAR: HS audible. RESPIRATORY: Clear to auscultation. Breath sounds equal bilaterally. GASTROINTESTINAL: Abdomen soft, non-tender, nondistended. MUSCULOSKELETAL: Extremities without clubbing, cyanosis, or edema. No joint tenderness, effusion, or edema noted. No calf tenderness. Negative Homans sign bilaterally.There are old scabs on bilateral knees but no effusion or signs of infection at present time. Prior temporary transvenous pacemaker site with no e.o infection. Groin TAVR access sites with no e.o infection. Bruises notes on abdomen. NEUROLOGICAL: Awake and alert. Non focal exam Psych cooperative. IV line sites with no e.o infection. Assessment & Plan Remarks Severe Sepsis present on admission Gram positive bacteremia ? MSSA ID pending. PSAE UTI. H/o catheterization and bleeding from difficult lópez Rule out endocarditis Recent TAVR bioprosthetic valve. Recent h/o temporary pacer placement during TAVR. h/o fall post TAVR with bruising of bilateral knees. Acute renal failure: likely sepsis related. Recs: Continue Vanco IV (target 15-20) Continue Ancef IV Repeat blood cultures x 2 2D ECHO difficult visualized valves. Will dw about JULIO. amanda Azul who will dw as well. Follow Cr to see Vanco needs to be changed to Dapto IV if Cr continues to go up. Follow cultures. Follow clinically. amanda patel patient and plan about treating with IV antibiotics for 6 weeks as concern that the recent TAVR may get infected due to the high grade bacteremia. Destiny Blanton MD Sep 21, 2017 14:56
[2017-09-21] MEDS: WARFARIN SOD 4 MG TAB PO SCH (15:42)
[2017-09-21] MEDS: ALPRAZolam 0.25 MG TAB PO PRN (20:51)
[2017-09-21] MEDS: ATORVASTATIN 40 MG TAB PO SCH (21:04)
[2017-09-22] VITALS (7 sets, daily range): BP systolic 118–141; BP diastolic 60–65; PULSE 79–93; RESP 18; TEMP 97.5–98; O2SAT 97–100
[2017-09-22] MEDS: SODIUM CHLOR 0.9% 1000 ML INJ 1,000 ML IV SCH ×2 (03:20→16:47)
[2017-09-22] MEDS ORDERED: POVIDONE IODINE 5% (ANTISEPSIS KIT) 4 APPLICATIONS EACH NARE PRN (04:15)
[2017-09-22] MEDS ORDERED: CHLORHEXIDINE GLUCONATE 2 % 1 PACK (2 CLOTHS) TOPICAL PRN (04:15)
[2017-09-22] MEDS ORDERED: LACTATED RINGER'S 1000 ML IV PRN (04:15)
[2017-09-22] MEDS ORDERED: SODIUM CHLORID 0.9% 500 ML IV PRN (04:15)
[2017-09-22] MEDS: ceFAZolin 2 GM PREMIX 50 ML IV SCH ×3 (06:11→22:42)
[2017-09-22] MEDS: INSULIN ASPART SUPPLEMENTAL SCALE SQ SCH ×4 (08:00→21:00)
[2017-09-22] MEDS ORDERED: LEVOFLOXACIN 500 MG TAB PO SCH (09:00)
[2017-09-22 09:40] LABS: HEMATOCRIT 25.1 % (39.0-51.0); HEMOGLOBIN 8.3 GM/DL (13.0-17.0); MEAN CELL VOLUME 95.5 FL (80.0-100.0); MEAN CORPUSCULAR HEMOGLOBIN 31.8 PG (27.0-34.0); MEAN CORPUSCULAR HGB CONC 33.3 % (32.0-36.0); MEAN PLATELET VOLUME 11.3 FL (7.0-11.0); PLATELET COUNT 45 TH/MM3 (150-450); RED BLOOD COUNT 2.62 MIL/MM3 (4.50-5.90); RED CELL DISTRIBUTION WIDTH 19.2 % (11.6-17.2); WHITE BLOOD COUNT 2.9 TH/MM3 (4.0-11.0)
[2017-09-22 09:45] LABS: INTERNATIONAL NORMALIZED RATIO 1.8 RATIO; PROTHROMBIN TIME - PATIENT 18.6 SEC (9.8-11.6)
--- NOTE | 2017-09-22 09:57 | HHI.PR ---
Addendum to Inpatient Note Addendum Reason: Additional Documentation Additional Information JULIO without complication. No vegetations seen. TAVR well seated, trivial AR. Good LV function. Greg Calzada MD Sep 22, 2017 09:57
[2017-09-22 10:15] LABS: BICARBONATE 23.7 MEQ/L (21.0-32.0); CREATININE 1.29 MG/DL (0.60-1.30); MAGNESIUM 2.2 MG/DL (1.5-2.5)
[2017-09-22 10:16] LABS: RANDOM VANCOMYCIN 14.5 COMMENT
[2017-09-22] MEDS: PYRIDOXINE HCL 50 MG TAB PO SCH (10:33)
[2017-09-22] MEDS: TAMSULOSIN HCL 0.4 MG CAP PO SCH (10:33)
[2017-09-22] MEDS: MAGNESIUM OXIDE 400 MG TAB PO SCH ×2 (10:33→21:24)
[2017-09-22] MEDS: ALLOPURINOL 100 MG TAB PO SCH ×2 (10:34→21:24)
[2017-09-22] MEDS: CHOLECALCIFEROL (VIT D3) 1000 UNIT TAB PO SCH (10:34)
[2017-09-22] MEDS: ASPIRIN EC 81 MG TABEC PO SCH (10:34)
[2017-09-22] MEDS: SODIUM CHLORIDE 0.9% FLUSH 10 ML FLUSH IV FLUSH SCH ×2 (10:35→21:00)
[2017-09-22] MEDS: FINASTERIDE 5 MG TAB PO SCH (10:35)
[2017-09-22] MEDS: POTASSIUM CHLORIDE 20 MEQ CONTROLLED RELEASE TAB PO SCH (10:35)
[2017-09-22] MEDS: DOCUSATE SODIUM 50 MG/SENNA 8.6 MG TAB PO SCH ×2 (10:35→21:00)
[2017-09-22] MEDS: METOPROLOL TARTRATE 25 MG TAB PO SCH ×2 (10:36→22:42)
--- NOTE | 2017-09-22 11:10 | HHI.FF ---
Face to Face Verification Diagnosis: (1) Bacteremia (2) Status post transcatheter aortic valve replacement (TAVR) using bioprosthesis (3) Warfarin-induced coagulopathy (4) Hematuria Physical Therapy Order: Evaluate and Treat, Improve ambulation, Strength and gait training Occupational Therapy Order: Evaluate and Treat, Improve ADL, Gross motor coordination, Fine motor coordination Home Health Nursing Order: Medical education Signs/symptoms of disease process Diabetic education Medication education-adverse effect Nursing assessment with vital signs IV medication administration I have seen patient Kim Miller on 09/22/17. My clinical findings support the need for the requested home health care services because: Ltd mobility - disease progression Deconditioned w/ increased weakness Limited ability to care for self Infection w/ risk of complications Injectable med education/admin I certify that my clinical findings support that this patient is homebound because: Unsteady gait/balance Unsafe to leave home unassisted Art Paiz DO Sep 22, 2017 11:10
[2017-09-22] MEDS ORDERED: VANCOMYCIN INJ 1,500 MG in SODIUM CHLORID 0.9% 500 ML INJ 500 ML IV SCH (13:00)
--- NOTE | 2017-09-22 14:24 | HHI.PR ---
Subjective Remarks The patient was resting comfortably in bed. He was anxious to go home. His was at the bedside and their questions were answered. He had no acute complaints at this time. He reports the Xanax has been helping with anxiety. Discussed with nursing and infectious disease. Objective Vitals Vital Signs Date Time Temp Pulse Resp B/P (MAP) Pulse Ox O2 Delivery O2 Flow Rate FiO2 09/22/17 12:00 97.5 87 18 118/60 (79) 100 09/22/17 08:00 79 09/22/17 08:00 97.8 87 18 130/64 (86) 99 09/22/17 05:02 97.6 93 18 127/60 (82) 98 09/22/17 00:32 97.8 82 18 132/63 (86) 99 09/21/17 20:45 97.8 84 18 128/60 (82) 100 09/21/17 16:27 97.5 89 18 100/55 (70) 98 09/21/17 16:22 82 I/O 09/21/17 09/21/17 09/21/17 09/22/17 09/22/17 09/22/17 07:00 15:00 23:00 07:00 15:00 23:00 Intake Total 822.5 ml 50 ml Output Total 800 ml 600 ml 500 ml 450 ml Balance -800 ml 222.5 ml -450 ml -450 ml Intake Oral 560 ml IV Total 262.5 ml 50 ml Output Urine Total 800 ml 600 ml 500 ml 450 ml # Bowel Movements 1 3 Result Diagram: 09/22/17 0736 09/22/17 0736 Imaging Last Impressions Chest X-Ray 09/19/17 0538 Signed Impressions: Service Date/Time: Tuesday, September 19, 2017 06:10 - CONCLUSION: No infiltrates seen. Matt Bhatti MD Abdomen/Pelvis CT 09/19/17 0000 Signed Impressions: Service Date/Time: Tuesday, September 19, 2017 07:14 - CONCLUSION: 1. Bilateral renal calculi and simple cysts. 2. No evidence of obstructive uropathy. 3. Prostatomegaly. 4. Uncomplicated diverticulosis. 5. No acute process. Washington Parra MD Objective Remarks GENERAL: This is a well-nourished, well-developed patient, in no apparent distress. SKIN: No rashes, ecchymoses or lesions. Cool and dry. HEAD: Atraumatic. Normocephalic. No temporal or scalp tenderness. EYES: Pupils equal round and reactive. Extraocular motions intact. No scleral icterus. No injection or drainage. ENT: Nose without bleeding, purulent drainage or septal hematoma. Throat without erythema, tonsillar hypertrophy or exudate. Uvula midline. Airway patent. NECK: Trachea midline. No JVD or lymphadenopathy. Supple, nontender, no meningeal signs. CARDIOVASCULAR: Irregular rate and rhythm without gallops, or rubs. S1-S2 no S3 or S4 RESPIRATORY: Clear to auscultation. No wheezes, rales, or rhonchi. GASTROINTESTINAL: Abdomen soft, non-tender, nondistended. No hepato-splenomegaly , or palpable masses. No guarding. : Weber in place. MUSCULOSKELETAL: Extremities without clubbing, cyanosis. TR LE edema noted. NEUROLOGICAL: Awake and alert. Cranial nerves II through XII intact. Motor and sensory grossly within normal limits. 4 out of 5 muscle strength in all muscle groups. Normal speech. PSYCH: Mood and affect appropriate. Medications and IVs Current Medications Medications (Trade) Dose Ordered Sig/Nella Route Start Time Stop Time Status Last Admin (Zyloprim) 100 mg BID PO 09/19/17 12:00 09/22/17 10:34 (Aspirin Chew) 81 mg DAILY CHEW 09/19/17 13:00 Future Hold (Lipitor) 40 mg HS PO 09/19/17 21:00 09/21/17 21:04 (Vitamin D3) 1,000 units DAILY PO 09/19/17 12:00 09/22/17 10:34 (Plavix) 75 mg DAILY PO 09/19/17 13:00 Future Hold (Proscar) 5 mg DAILY PO 09/19/17 12:00 09/22/17 10:35 (Prinivil) 10 mg DAILY PO 09/19/17 12:00 Future Hold 09/21/17 08:14 (Mag-Ox) 400 mg BID PO 09/19/17 21:00 09/22/17 10:33 (Lopressor) 12.5 mg Q12H PO 09/19/17 11:00 09/21/17 23:00 (KCl) 20 meq DAILY PO 09/19/17 13:00 09/22/17 10:35 (Vitamin B6) 100 mg DAILY PO 09/19/17 13:00 09/22/17 10:33 Sodium Chloride 1,000 ml @ 75 mls/hr [id number] IV 09/19/17 12:00 09/22/17 03:20 (Tylenol) 650 mg Q4H PRN PO 09/19/17 09:00 (Zofran Inj) 4 mg Q6H PRN IVP 09/19/17 09:00 (Reglan Inj) 5 mg Q6H PRN IV PUSH 09/19/17 09:00 (Tylenol) 650 mg Q6H PRN PO 09/19/17 09:00 (Percocet 5-325 Mg) 1 tab Q6H PRN PO 09/19/17 09:00 (Percocet 10-325 Mg) 1 tab Q6H PRN PO 09/19/17 09:00 (Morphine Inj) 2 mg Q3H PRN IV PUSH 09/19/17 09:00 (Morphine Inj) 4 mg Q3H PRN IV PUSH 09/19/17 09:00 (Narcan Inj) 0.4 mg UNSCH PRN IV PUSH 09/19/17 09:00 (Ora-Colace) 1 tab BID PO 09/19/17 11:00 09/22/17 10:35 (Milk Of Magnesia Liq) 30 ml Q12H PRN PO 09/19/17 09:00 (Senokot) 17.2 mg Q12H PRN PO 09/19/17 09:00 (Dulcolax Supp) 10 mg DAILY PRN RECTAL 09/19/17 09:00 (Lactulose Liq) 30 ml DAILY PRN PO 09/19/17 09:00 (NS Flush) 2 ml UNSCH PRN IV FLUSH 09/19/17 09:00 (NS Flush) 2 ml BID IV FLUSH 09/19/17 09:00 09/22/17 10:35 (NovoLOG SUPPLEMENTAL SCALE) 1 ACHS SLIDING SCALE SQ 09/19/17 12:00 09/22/17 12:30 (D50w (Vial) Inj) 50 ml UNSCH PRN IV PUSH 09/19/17 09:00 (Glucagon Inj) 1 mg UNSCH PRN OTHER 09/19/17 09:00 (Pill Splitter) 1 ea UNSCH PRN OTHER 09/19/17 13:45 (Flomax) 0.4 mg DAILY PO 09/19/17 16:45 09/22/17 10:33 Cefazolin Sodium/ Dextrose 50 ml @ 100 mls/hr Q8H IV 09/20/17 15:00 09/22/17 06:11 (Xanax) 0.125 mg Q4H PRN PO 09/21/17 14:00 09/21/17 20:51 (Coumadin) 4 mg DAILY@16 PO 09/21/17 16:00 09/21/17 15:42 (Ecotrin Ec) 81 mg DAILY PO 09/22/17 09:00 09/22/17 10:34 Lactated Ringer's 1,000 ml @ 30 mls/hr Q24H PRN IV 09/22/17 04:15 09/25/17 04:14 Sodium Chloride 500 ml @ 30 mls/hr [id number] PRN IV 09/22/17 04:15 09/25/17 04:14 (Betadine 5% Antisepsis Kit) 1 applic [employer]UE PRN EACH NARE 09/22/17 04:15 09/25/17 04:14 (Chlorhexidine 2% Cloth) 3 pack [employer] CAT[employer]OGUE PRN TOPICAL 09/22/17 04:15 09/25/17 04:14 Miscellaneous Information SPECIFIC LAB TO BE DRAWN:VANCOMYCIN TROUGH DATE TO... ONCE ONCE .XX 09/24/17 12:45 09/24/17 12:46 Cefepime HCl 2000 mg/Sodium Chloride 100 ml @ 200 mls/hr Q8H IV 09/22/17 13:30 UNV A/P Assessment and Plan Severe sepsis/ Bacteremia Blood cultures growing staph aureus, urine culture growing pseudomonas. ID consult appreciated. Limited echo without evidence of vegetation. JULIO 09/22 was negative for endocarditis. - continue cefazolin and Cefepime per ID. - follow repeat blood cultures. - IVFs. - PT/ OT. 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 He is on chronic anticoagulation with Coumadin, Plavix and aspirin. Urology consult appreciated. - continue Weber per urology. - hold anticoagulation. - follow CBC and transfuse as needed. Thrombocytopenia Unsure of etiology. It appears he was exposed to heparin in August. - HIT panel. - hematology consult requested. Acute renal failure Appears to be secondary to sepsis, dehydration. Resolving with fluids. - Continue IV fluids. - Follow BMP and avoid nephrotoxins. Recent TAVR for aortic valve August 27. Cardiology consult appreciated. JULIO noted. - continue cardiac regimen. - follow up with cardiology. Elevated troponin Troponin peaked at 0.13. Likely s/t sepsis. - cardiology following. - telemetry. Diabetes mellitus Well controlled at this time. - continue on sliding scale coverage along with diabetic diet. Anxiety The patient endorses anxiety. - Low-dose of Xanax as needed. DVT prophylaxis: Supratherapeutic INR Discharge Planning D/c once cleared by ID. Awaiting hematology Art Natarajan DO Sep 22, 2017 14:24
[2017-09-22] MEDS: CEFEPIME INJ 2,000 MG in SODIUM CHLORIDE 0.9% INJ 100 ML IV SCH ×2 (15:46→22:42)
[2017-09-22] MEDS: WARFARIN SOD 4 MG TAB PO SCH (15:47)
[2017-09-22] MEDS: ALPRAZolam 0.25 MG TAB PO PRN (21:24)
[2017-09-22] MEDS: ATORVASTATIN 40 MG TAB PO SCH (21:24)
[2017-09-23] VITALS (9 sets, daily range): BP systolic 93–148; BP diastolic 51–74; PULSE 79–99; RESP 18–20; TEMP 97–98.7; O2SAT 94–100
[2017-09-23 03:44] LABS: HEMATOCRIT 23.6 % (39.0-51.0); HEMOGLOBIN 7.8 GM/DL (13.0-17.0); MEAN CELL VOLUME 95.5 FL (80.0-100.0); MEAN CORPUSCULAR HEMOGLOBIN 31.5 PG (27.0-34.0); MEAN PLATELET VOLUME 11.6 FL (7.0-11.0); PLATELET COUNT 48 TH/MM3 (150-450); RED BLOOD COUNT 2.47 MIL/MM3 (4.50-5.90); RED CELL DISTRIBUTION WIDTH 19.3 % (11.6-17.2)
[2017-09-23 04:03] LABS: INTERNATIONAL NORMALIZED RATIO 2.7 RATIO; PROTHROMBIN TIME - PATIENT 26.8 SEC (9.8-11.6)
[2017-09-23 04:44] LABS: ALBUMIN 2.2 GM/DL (3.4-5.0); ALKALINE PHOSPHATASE 175 U/L (45-117); ALT (GPT) 35 U/L (12-78); AST (GOT) 129 U/L (15-37); BICARBONATE 20.4 MEQ/L (21.0-32.0); BLOOD UREA NITROGEN 33 MG/DL (7-18); CHLORIDE 116 MEQ/L (98-107); CREATININE 0.94 MG/DL (0.60-1.30); DIRECT BILIRUBIN ADULT 0.6 MG/DL (0.0-0.2); FERRITIN 135 NG/ML (26-388); FOLATE 7.3 NG/ML (3.1-17.5); GLOMERULAR FILTRATION RATE 76 ML/MIN (>89); GLUCOSE,RANDOM 125 MG/DL (74-106); INDIRECT BILIRUBIN 0.5 MG/DL (0.0-0.8); IRON (FE) 33 MCG/DL (65-175); MAGNESIUM 1.7 MG/DL (1.5-2.5); SODIUM (NA) 144 MEQ/L (136-145); TOTAL BILIRUBIN ADULT 1.1 MG/DL (0.2-1.0); TOTAL IRON BINDING CAPACITY 220 MCG/DL (250-450); TOTAL PROTEIN 5.1 GM/DL (6.4-8.2)
[2017-09-23 04:47] LABS: CALCIUM-PROTEIN CORRECTED 7.8 MG/DL (8.5-10.1)
[2017-09-23] MEDS: SODIUM CHLOR 0.9% 1000 ML INJ 1,000 ML IV SCH (06:00)
[2017-09-23] MEDS: ceFAZolin 2 GM PREMIX 50 ML IV SCH ×2 (06:35→14:45)
[2017-09-23] MEDS: CEFEPIME INJ 2,000 MG in SODIUM CHLORIDE 0.9% INJ 100 ML IV SCH ×2 (06:35→16:13)
[2017-09-23] MEDS: FINASTERIDE 5 MG TAB PO SCH (08:52)
[2017-09-23] MEDS: ASPIRIN EC 81 MG TABEC PO SCH (08:52)
[2017-09-23] MEDS: MAGNESIUM OXIDE 400 MG TAB PO SCH ×2 (08:52→21:20)
[2017-09-23] MEDS: POTASSIUM CHLORIDE 20 MEQ CONTROLLED RELEASE TAB PO SCH (08:52)
[2017-09-23] MEDS: ALLOPURINOL 100 MG TAB PO SCH ×2 (08:52→21:20)
[2017-09-23] MEDS: TAMSULOSIN HCL 0.4 MG CAP PO SCH (08:52)
[2017-09-23] MEDS: CHOLECALCIFEROL (VIT D3) 1000 UNIT TAB PO SCH (08:53)
[2017-09-23] MEDS: PYRIDOXINE HCL 50 MG TAB PO SCH (08:53)
[2017-09-23] MEDS: DOCUSATE SODIUM 50 MG/SENNA 8.6 MG TAB PO SCH ×2 (08:53→21:21)
[2017-09-23] MEDS: SODIUM CHLORIDE 0.9% FLUSH 10 ML FLUSH IV FLUSH SCH ×2 (09:00→21:00)
[2017-09-23] MEDS: INSULIN ASPART SUPPLEMENTAL SCALE SQ SCH ×4 (09:07→21:24)
--- NOTE | 2017-09-23 09:42 | MB ---
cc: Jacy Ta MD DATE OF CONSULT: CHIEF COMPLAINT: 1. Thrombocytopenia 2. Anemia 3. Neutropenia HISTORY OF PRESENT ILLNESS: Mr. Miller is a 87-year-old gentleman who was admitted to the hospital on 09/19/2017 with urosepsis. He has a history of congestive heart failure and had a TAVR performed on 08/27 and was brought in by ambulance with altered mental status and worsening urinary symptoms. Per H and P report, his noticed that he had not been acting like himself. Mental status has resolved since inpatient hospitalization. Since he has been admitted consults have been performed by the infectious disease team and he is on vancomycin and Ancef. The cardiology team has seen him since he has been inpatient. He is currently on warfarin and aspirin. LABORATORY STUDIES: From today show white blood cell count of 2.9, hemoglobin 8.3, platelet count of 45,000. CBC from 09/21 with white blood cell count 3.4, hemoglobin 8.2 and a platelet count of 41,000. Laboratory studies from admission with white blood cell count of 6.1, hemoglobin 9.8 and platelet count of 67,000. CBC from 07/2017 with white blood cell count of 5, hemoglobin 12.1 and a platelet count of 104,000. CBC from 06/2017 with white blood cell count 4.3, hemoglobin 11.3 and a platelet count of 95,000. On review of his CBCs from outpatient clinic, his platelet count runs approximately 100,000-110,000. He has a normal white blood cell count, a normal differential and slight anemia. He does have some baseline chronic kidney disease stage III. IMAGING STUDIES: With abdomen and pelvis showing bilateral renal calculi and simple cyst, enlarged prostate, normal liver and spleen. PAST MEDICAL HISTORY: TAVR, chronic atrial fibrillation on warfarin, history of neuroendocrine cancer, chronic anticoagulation, coronary artery disease, hyperlipidemia, hypertension, BPH, GERD. PAST SURGICAL HISTORY: Cardiac stents, cataracts with lens implants, prostate surgery, tonsillectomy, prostatectomy, nasal polyps. FAMILY HISTORY: No known family history of blood disorders. SOCIAL HISTORY: The patient lives with his . Former smoker. Denies tobacco, alcohol or illegal drug use. PHYSICAL EXAMINATION: GENERAL: Elderly man in no distress. SKIN: Bruising on arms. HEAD: Normocephalic, atraumatic. NECK: Supple with no lymphadenopathy. CARDIOVASCULAR: No murmurs. GASTROINTESTINAL: Soft, nontender, nondistended. Bowel sounds present. RESPIRATORY: Clear to auscultation bilaterally. NEURO: Awake and alert. Poor long-term memory. ASSESSMENT AND PLAN: Thrombocytopenia after TAVR on 08/27/2017. Will check PTT and fibrinogen to insure that he does not have underlying DIC. Will check smear review for further evaluation of morphology of red blood cells and platelets. Will check LDH, haptoglobin, vitamin B12, folate, iron profile, ferritin and flow cytometry. Will also recheck hepatitic function panel in the morning. HIT panel pending, low probability for HIT, will follow up results of test. Patient reports that he had previously been seen by Dr. Shah and had a bone marrow biopsy. He is uncertain of what those results showed. Medications can certainly affect counts including vancomycin, cefepime, cefazolin. Suspect that sepsis and antibiotic use in the setting of poor bone marrow reserve is contributing to new pancytopenia. Will check flow cytometry to evaluate for underlyign bone marrow disorder. Possibly some degree of hemolysis/consumption from prosthetic valve/TAVR. Oncology service will continue to follow. Jacy Ta MD HECTOR/TL/ , 11:57 PM , 08:32 AM RONNELL
[2017-09-23] MEDS: METOPROLOL TARTRATE 25 MG TAB PO SCH (10:36)
--- NOTE | 2017-09-23 10:45 | HHI.PR ---
Subjective Remarks Patient c/op left upper extremity edema. Also c/o mild cough and chest congestion. Denies fevers or chills. Objective Vitals Vital Signs Date Time Temp Pulse Resp B/P (MAP) Pulse Ox O2 Delivery O2 Flow Rate FiO2 09/23/17 08:00 97.8 99 18 148/66 (93) 94 09/23/17 05:15 88 09/23/17 04:00 97.0 89 18 129/64 (85) 94 09/23/17 00:52 79 09/23/17 00:00 98.4 93 18 137/57 (83) 99 09/22/17 23:28 91 09/22/17 20:00 98.0 92 18 141/65 (90) 97 09/22/17 16:00 86 09/22/17 16:00 97.7 84 18 135/63 (87) 100 09/22/17 12:00 97.5 87 18 118/60 (79) 100 I/O 09/22/17 09/22/17 09/22/17 09/23/17 09/23/17 09/23/17 07:00 15:00 23:00 07:00 15:00 23:00 Intake Total 275 ml Output Total 450 ml 1100 ml Balance -175 ml -1100 ml IV Total 275 ml Output Urine Total 450 ml 1100 ml # Bowel Movements 1 Result Diagram: 09/23/17 0331 09/23/17 0331 Imaging Last Impressions Chest X-Ray 09/19/17 0538 Signed Impressions: Service Date/Time: Tuesday, September 19, 2017 06:10 - CONCLUSION: No infiltrates seen. Matt Bhatti MD Abdomen/Pelvis CT 09/19/17 0000 Signed Impressions: Service Date/Time: Tuesday, September 19, 2017 07:14 - CONCLUSION: 1. Bilateral renal calculi and simple cysts. 2. No evidence of obstructive uropathy. 3. Prostatomegaly. 4. Uncomplicated diverticulosis. 5. No acute process. Washington Parra MD Objective Remarks AAOx3, NAD sitting in chair Bilateral bibasilar crackles, no wheezing or rhonchi S1S2 (+) RRR, no MRG abdomen is soft, NT, ND Edematous non tender upper left extremity. some ecchymotic lesions noted in the lateral forearms. No other rash or petechiae noted. There is +2 edema in bilateral extremities. Procedures None Medications and IVs Current Medications Medications (Trade) Dose Ordered Sig/Nella Route Start Time Stop Time Status Last Admin (Zyloprim) 100 mg BID PO 09/19/17 12:00 09/23/17 08:52 (Aspirin Chew) 81 mg DAILY CHEW 09/19/17 13:00 Future Hold (Lipitor) 40 mg HS PO 09/19/17 21:00 09/22/17 21:24 (Vitamin D3) 1,000 units DAILY PO 09/19/17 12:00 09/23/17 08:53 (Plavix) 75 mg DAILY PO 09/19/17 13:00 Future Hold (Proscar) 5 mg DAILY PO 09/19/17 12:00 09/23/17 08:52 (Prinivil) 10 mg DAILY PO 09/19/17 12:00 Future Hold 09/21/17 08:14 (Mag-Ox) 400 mg BID PO 09/19/17 21:00 09/23/17 08:52 (Lopressor) 12.5 mg Q12H PO 09/19/17 11:00 09/23/17 10:36 (KCl) 20 meq DAILY PO 09/19/17 13:00 09/23/17 08:52 (Vitamin B6) 100 mg DAILY PO 09/19/17 13:00 09/23/17 08:53 Sodium Chloride 1,000 ml @ 75 mls/hr [id number] IV 09/19/17 12:00 09/22/17 03:20 (Tylenol) 650 mg Q4H PRN PO 09/19/17 09:00 (Zofran Inj) 4 mg Q6H PRN IVP 09/19/17 09:00 (Reglan Inj) 5 mg Q6H PRN IV PUSH 09/19/17 09:00 (Tylenol) 650 mg Q6H PRN PO 09/19/17 09:00 (Percocet 5-325 Mg) 1 tab Q6H PRN PO 09/19/17 09:00 (Percocet 10-325 Mg) 1 tab Q6H PRN PO 09/19/17 09:00 (Morphine Inj) 2 mg Q3H PRN IV PUSH 09/19/17 09:00 (Morphine Inj) 4 mg Q3H PRN IV PUSH 09/19/17 09:00 (Narcan Inj) 0.4 mg UNSCH PRN IV PUSH 09/19/17 09:00 (Ora-Colace) 1 tab BID PO 09/19/17 11:00 09/23/17 08:53 (Milk Of Magnesia Liq) 30 ml Q12H PRN PO 09/19/17 09:00 (Senokot) 17.2 mg Q12H PRN PO 09/19/17 09:00 (Dulcolax Supp) 10 mg DAILY PRN RECTAL 09/19/17 09:00 (Lactulose Liq) 30 ml DAILY PRN PO 09/19/17 09:00 (NS Flush) 2 ml UNSCH PRN IV FLUSH 09/19/17 09:00 (NS Flush) 2 ml BID IV FLUSH 09/19/17 09:00 09/22/17 10:35 (NovoLOG SUPPLEMENTAL SCALE) 1 ACHS SLIDING SCALE SQ 09/19/17 12:00 09/23/17 09:07 (D50w (Vial) Inj) 50 ml UNSCH PRN IV PUSH 09/19/17 09:00 (Glucagon Inj) 1 mg UNSCH PRN OTHER 09/19/17 09:00 (Pill Splitter) 1 ea UNSCH PRN OTHER 09/19/17 13:45 (Flomax) 0.4 mg DAILY PO 09/19/17 16:45 09/23/17 08:52 Cefazolin Sodium/ Dextrose 50 ml @ 100 mls/hr Q8H IV 09/20/17 15:00 09/23/17 06:35 (Xanax) 0.125 mg Q4H PRN PO 09/21/17 14:00 09/22/17 21:24 (Coumadin) 4 mg DAILY@16 PO 09/21/17 16:00 09/22/17 15:47 (Ecotrin Ec) 81 mg DAILY PO 09/22/17 09:00 09/23/17 08:52 Lactated Ringer's 1,000 ml @ 30 mls/hr Q24H PRN IV 09/22/17 04:15 09/25/17 04:14 Sodium Chloride 500 ml @ 30 mls/hr [id number] PRN IV 09/22/17 04:15 09/25/17 04:14 (Betadine 5% Antisepsis Kit) 1 applic [employer] MANAGER PRN EACH NARE 09/22/17 04:15 09/25/17 04:14 (Chlorhexidine 2% Cloth) 3 pack [employer] MANAGER PRN TOPICAL 09/22/17 04:15 09/25/17 04:14 Cefepime HCl 2000 mg/Sodium Chloride 100 ml @ 200 mls/hr Q8H IV 09/22/17 15:00 09/23/17 06:35 (Lasix) 40 mg BID@,18 PO 09/23/17 18:00 Urinary Catheter: Yes Assessment to: Continue A/P Problem List: (1) Anemia ICD Code: D64.9 - Anemia, unspecified (2) Thrombocytopenia ICD Code: D69.6 - Thrombocytopenia, unspecified (3) MILLI (acute kidney injury) ICD Code: N17.9 - Acute kidney failure, unspecified (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 - Presence of prosthetic heart valve (5) Elevated troponin ICD Code: R74.8 - Abnormal levels of other serum enzymes (6) Diabetes mellitus ICD Code: E11.9 - Type 2 diabetes mellitus without complications (7) Anxiety ICD Code: F41.9 - Anxiety disorder, unspecified (8) Sepsis ICD Code: A41.9 - Sepsis, unspecified organism Status: Acute (9) Bacteremia ICD Code: R78.81 - Bacteremia (10) Hematuria ICD Code: R31.9 - Hematuria, unspecified (11) Atrial fibrillation ICD Code: I48.91 - Atrial fibrillation Status: Acute Assessment and Plan Severe sepsis/ Bacteremia Blood cultures growing staph aureus, urine culture growing pseudomonas. ID consult appreciated. Limited echo without evidence of vegetation. JULIO 09/22 was negative for endocarditis. - continue cefazolin and Cefepime per ID. - follow repeat blood cultures. - IVFs. - PT/ OT. 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 He is on chronic anticoagulation with Coumadin, Plavix and aspirin. Urology consult appreciated. - continue Weber per urology. - hold anticoagulation. - follow CBC and transfuse as needed. - 09/23 Hematuria has resolved - will Dc Weber catheter and start voiding trials if ok with urology. Thrombocytopenia Unsure of etiology. It appears he was exposed to heparin in August. 09/23 neurology consultation recommendations appreciated. Doubt patient in DIC since clinically looks better. Fibrinogen is within normal range at 341. Platelets are ending up. Suspect cytopenia secondary to combination of sepsis along with low bone marrow reserve. Continue to monitor platelets. Acute renal failure Appears to be secondary to sepsis, dehydration. Resolving with fluids. 09/23 Acute kidney injury likely due to prerenal azotemia due to sepsis and dehydration. Now resolved. DC IV fluids. Recent TAVR for aortic valve August 27. Cardiology consult appreciated. JULIO noted. - continue cardiac regimen. - follow up with cardiology. Elevated troponin Troponin peaked at 0.13. Likely s/t sepsis. - cardiology following. - telemetry. Diabetes mellitus Well controlled at this time. - continue on sliding scale coverage along with diabetic diet. Anxiety The patient endorses anxiety. - Low-dose of Xanax as needed. Supratherapeutic INR. Coumadin. INR went up to 2.7. Continue to monitor PT/INR daily. We'll consult pharmacy to help with dosing. Atrial fibrillation. On chronic anti-correlation with Coumadin now on hold secondary to hematuria and supratherapeutic INR. Continue telemetry monitoring. Left upper extremity edema. Will check venous Doppler to rule out DVT. Chest congestion for/cough Order a chest x-ray. There bilateral rales on auscultation. I will start the patient on oral Lasix 40 mg by mouth twice a day. Bilateral extremities edema. Due to fluid overload. Start the patient on Lasix orally as above. Daily weights. DVT prophylaxis: Supratherapeutic INR Discharge Planning Possible discharge in 1-2 days, pending ID and hematology clearance. Problem Qualifiers (1) Sepsis: Qualified Codes: A41.9 - Sepsis, unspecified organism Shyam Jeffrey MD Sep 23, 2017 10:45
--- NOTE | 2017-09-23 12:05 | RADRPT ---
EXAM DATE/TIME: 09/23/2017 11:27 [facility] COMPARISON: No previous studies available for comparison. INDICATIONS : Left arm swelling. MEDICAL HISTORY : Congestive heart failure. Gastroesophageal reflux disease. Hypercholesterolemia. Coronary artery dise ase. BPH. Neuroendocrine cancer. Aortic stenosis. Myocardial infarction. Anticoagulant therapy. Afib. Hypertension. Hiatal hernia. Diabetes. Anemia. Blood transfusion. Gout. SURGICAL HISTORY : Tonsillectomy. Prostatectomy. Coronary artery stent. Cataract removal. Lens replacement. Nasal polyp removal. Aortic valve replacement. ENCOUNTER: Initial ACUITY: 1 day PAIN SCORE: 0/10 LOCATION: Left arm. FINDINGS: There is spontaneous flow documented in the brachial, basilic, cephalic, axillary, and subclavian vei ns. The vessels are compressible and augmentation response is documented. No filling defects are se en. The flow is phasic with respiration. Direction of flow in the jugular vein is caudal. Small fl uid collection along the mid humeral region measuring 6.4 x 1.2 x 2.5 cm. CONCLUSION: 1. No DVT left arm. 2. Small fluid collection left mid arm. Sedrick Johnson MD on September 23, 2017 at 12:03 Board Certified Radiologist. This report was verified electronically.
--- NOTE | 2017-09-23 13:58 | RADRPT ---
EXAM DATE/TIME: 09/23/2017 13:16 [facility] COMPARISON: CHEST SINGLE AP, September 19, 2017, 6:10. INDICATIONS : Short of breath. MEDICAL HISTORY : Diabetes mellitus type II. Congestive heart failure. Hypercholesterolemia. Hypertension.Cardiovascula r disease. Hernia, hiatal. SURGICAL HISTORY : Aortic valve replacement. Coronary artery stent. Prostatectomy. ENCOUNTER: Subsequent ACUITY: 4 - 6 days PAIN SCORE: 0/10 LOCATION: Bilateral chest FINDINGS: A single view of the chest demonstrates the lungs to be symmetrically aerated without evidence of mas s, infiltrate or effusion. The cardiomediastinal contours are unremarkable. A stent mounted aortic v alve noted. Osseous structures are intact. There is reduced mineralization involving the right mary alice l head and neck. CONCLUSION: Clear lungs. Reduced bone mineralization involving the right humeral head and neck. This can be seen in regional osteoporosis but can also be seen in such etiologies as chronic infection. [facility] if clinically warranted. Matt Castañeda Jr., MD on September 23, 2017 at 13:42 Board Certified Radiologist. This report was verified electronically.
[2017-09-23 14:36] LABS: HEPARIN INDUCED PLATELET AB NEGATIVE (NEGATIVE)
--- NOTE | 2017-09-23 16:44 | HHI.IDPN ---
Subjective Subjective Remarks Mr. Miller is a 87-year-old male with past medical history significant for severe aortic stenosis, CHF. Patient was deemed as a candidate for Transcatheter aortic valve replacement(TAVR) and electively underwent procedure on 08/27/[address]Cary Clale per Operative report. Patient reports he had a transvenous temporary pacemaker that was removed from his right neck within 1 day.He also reports use of right groin for the TAVR access. He reports preoperatively there was difficulty placing a lópez catheter and he had hematuria and Urology was involved. He goes on to report he was discharged with a lópez catheter in place. He reports enroute home while on hospital premises he had a fall with abrasions to bilateral knees and left side of his forehead with a gash on his nose and nasal bleed. He was in the ER for observation and was discharged home after few hours. Post operatively he otherwise did ok from cardiac standpoint. He did see the urologist twice and ultimately upon his request the lópez catheter was removed. One day prior to admission patient's reports he became acutely confused( not acting his normal self) and had high grade fevers, urinary symptoms. He was brought in by ambulance after having fevers and dysuria and change in mental status at home. In the emergency department to have a urinary tract infection, will be admitted for urinary tract infection and severe sepsis. Patient had blood cultures drawn on admission which are positive 4 out of 4 bottles for Gram positive cocci in pairs and clusters. ID consulted for evaluation and Mment of Severe Sepsis, GP bacteremia, abnormal UA. Overnight events reviewed. No fevers No rash no diarrhea Echo read as valves could not be clearly visualized. Discussed with patient possible need for JULIO. Will discuss with Dr. lund. Antibiotics Ancef IV Vancomycin IV Lines Line sites with no e/o infection Past Medical History reviewed Allergies: Coded Allergies: niacin (Verified Allergy, Unknown, 09/19/17) sitagliptin (Unverified Adverse Reaction, Severe, STOMACH PAIN, 09/19/17) Objective . Vital Signs Date Time Temp Pulse Resp B/P (MAP) Pulse Ox O2 Delivery O2 Flow Rate FiO2 09/23/17 16:23 98.3 90 18 138/63 (88) 99 09/23/17 12:35 97.6 79 18 93/51 (65) 95 09/23/17 08:00 97.8 99 18 148/66 (93) 94 09/23/17 05:15 88 09/23/17 04:00 97.0 89 18 129/64 (85) 94 09/23/17 00:52 79 09/23/17 00:00 98.4 93 18 137/57 (83) 99 09/22/17 23:28 91 09/22/17 20:00 98.0 92 18 141/65 (90) 97 . Laboratory Tests Test 09/22/17 07:36 09/23/17 03:31 White Blood Count 2.9 TH/MM3 3.0 TH/MM3 Red Blood Count 2.62 MIL/MM3 2.47 MIL/MM3 Hemoglobin 8.3 GM/DL 7.8 GM/DL Hematocrit 25.1 % 23.6 % Mean Corpuscular Volume 95.5 FL 95.5 FL Mean Corpuscular Hemoglobin 31.8 PG 31.5 PG Mean Corpuscular Hemoglobin Concent 33.3 % 33.0 % Red Cell Distribution Width 19.2 % 19.3 % Platelet Count 45 TH/MM3 48 TH/MM3 Mean Platelet Volume 11.3 FL 11.6 FL Blood Smear Pathologist Review Haptoglobin LESS THAN 10 MG/DL Laboratory Tests Test 09/22/17 07:36 09/23/17 03:31 Blood Urea Nitrogen 46 MG/DL 33 MG/DL Creatinine 1.29 MG/DL 0.94 MG/DL Random Glucose 150 MG/DL 125 MG/DL Calcium Level 8.0 MG/DL 7.0 MG/DL Magnesium Level 2.2 MG/DL 1.7 MG/DL Sodium Level 139 MEQ/L 144 MEQ/L Potassium Level 3.9 MEQ/L 3.6 MEQ/L Chloride Level 109 MEQ/L 116 MEQ/L Carbon Dioxide Level 23.7 MEQ/L 20.4 MEQ/L Anion Gap 6 MEQ/L 8 MEQ/L Estimat Glomerular Filtration Rate 53 ML/MIN 76 ML/MIN Total Protein 5.1 GM/DL Albumin 2.2 GM/DL Alkaline Phosphatase 175 U/L Aspartate Amino Transf (AST/SGOT) 129 U/L Alanine Aminotransferase (ALT/SGPT) 35 U/L Lactate Dehydrogenase 313 U/L Total Bilirubin 1.1 MG/DL Direct Bilirubin 0.6 MG/DL Protein Corrected Calcium 7.8 MG/DL Iron Level 33 MCG/DL Total Iron Binding Capacity 220 MCG/DL Percent Iron Saturation 15.0 % Ferritin 135 NG/ML Indirect Bilirubin 0.5 MG/DL Vitamin B12 Level 1386 PG/ML Folate 7.3 NG/ML Microbiology Date/Time Source Procedure Growth Status 09/21/17 05:43 Blood Peripheral Aerobic Blood Culture - Preliminary NO GROWTH IN 2 DAYS Resulted 09/21/17 05:43 Blood Peripheral Anaerobic Blood Culture - Preliminary NO GROWTH IN 2 DAYS Resulted 09/21/17 05:30 Blood Peripheral Aerobic Blood Culture - Preliminary NO GROWTH IN 2 DAYS Resulted 09/21/17 05:30 Blood Peripheral Anaerobic Blood Culture - Preliminary NO GROWTH IN 2 DAYS Resulted Imaging Last Impressions Chest X-Ray 09/19/17 0538 Signed Impressions: Service Date/Time: Tuesday, September 19, 2017 06:10 - CONCLUSION: No infiltrates seen. Matt Bhatti MD Abdomen/Pelvis CT 09/19/17 0000 Signed Impressions: Service Date/Time: Tuesday, September 19, 2017 07:14 - CONCLUSION: 1. Bilateral renal calculi and simple cysts. 2. No evidence of obstructive uropathy. 3. Prostatomegaly. 4. Uncomplicated diverticulosis. 5. No acute process. Washington Parra MD Physical Exam GENERAL: This is a well-nourished, well-developed patient, in no apparent distress. SKIN: No rashes, ecchymoses or lesions. Cool and dry. HEAD: Atraumatic. Normocephalic. No temporal or scalp tenderness. Old bruise on his forehead with no e.o infection. Nose with no erythema no bleeding noted. EYES: Pupils equal round and reactive. Extraocular motions intact. No scleral icterus. No injection or drainage. ENT: Nose without bleeding, purulent drainage or septal hematoma. Throat without erythema, tonsillar hypertrophy or exudate. Uvula midline. Airway patent. NECK: Trachea midline. Supple, nontender, no meningeal signs. CARDIOVASCULAR: HS audible. RESPIRATORY: Clear to auscultation. Breath sounds equal bilaterally. GASTROINTESTINAL: Abdomen soft, non-tender, nondistended. MUSCULOSKELETAL: Extremities without clubbing, cyanosis, or edema. No joint tenderness, effusion, or edema noted. No calf tenderness. Negative Homans sign bilaterally.There are old scabs on bilateral knees but no effusion or signs of infection at present time. Prior temporary transvenous pacemaker site with no e.o infection. Groin TAVR access sites with no e.o infection. Bruises notes on abdomen. NEUROLOGICAL: Awake and alert. Non focal exam Psych cooperative. IV line sites with no e.o infection. Assessment & Plan Remarks Severe Sepsis present on admission Gram positive bacteremia ? MSSA ID pending. PSAE UTI. H/o catheterization and bleeding from difficult lópez Rule out endocarditis Recent TAVR bioprosthetic valve. Recent h/o temporary pacer placement during TAVR. h/o fall post TAVR with bruising of bilateral knees. Acute renal failure: likely sepsis related. Pancytopenia: likely sepsis, TAVE related. Unlikely HIT or medication related. Recs: Continue Ancef IV Continue Cefepime IV Follow Cr to see Vanco needs to be changed to Dapto IV if Cr continues to go up. Follow cultures. Follow clinically. amanda patient and plan about treating with IV antibiotics for 6 weeks as concern that the recent TAVR may get infected due to the high grade bacteremia. amanda patient and family will need to complete PSAE UTI Rx in hospital for few more days. Destiny Blanton MD Sep 23, 2017 16:44
--- NOTE | 2017-09-23 17:28 | PD.ONC.PN ---
Subjective Subjective Remarks Resting comfortably in bed, anxious to go home. Objective Data Date Time Temp Pulse Resp B/P (MAP) Pulse Ox O2 Delivery O2 Flow Rate FiO2 09/23/17 16:23 98.3 90 18 138/63 (88) 99 09/23/17 12:35 97.6 79 18 93/51 (65) 95 09/23/17 08:00 97.8 99 18 148/66 (93) 94 09/23/17 05:15 88 09/23/17 04:00 97.0 89 18 129/64 (85) 94 09/23/17 00:52 79 09/23/17 00:00 98.4 93 18 137/57 (83) 99 09/22/17 23:28 91 09/22/17 20:00 98.0 92 18 141/65 (90) 97 09/23/17 09/23/17 09/23/17 07:00 15:00 23:00 Output Total 1100 ml Balance -1100 ml Result Diagram: 09/23/17 0331 09/23/17 0331 Laboratory Results Laboratory Tests Test 09/23/17 03:31 White Blood Count 3.0 TH/MM3 Red Blood Count 2.47 MIL/MM3 Hemoglobin 7.8 GM/DL Hematocrit 23.6 % Mean Corpuscular Volume 95.5 FL Mean Corpuscular Hemoglobin 31.5 PG Mean Corpuscular Hemoglobin Concent 33.0 % Red Cell Distribution Width 19.3 % Platelet Count 48 TH/MM3 Mean Platelet Volume 11.6 FL Blood Smear Pathologist Review Haptoglobin LESS THAN 10 MG/DL Prothrombin Time 26.8 SEC Prothromb Time International Ratio 2.7 RATIO Fibrinogen 341 mg/dL Blood Urea Nitrogen 33 MG/DL Creatinine 0.94 MG/DL Random Glucose 125 MG/DL Total Protein 5.1 GM/DL Albumin 2.2 GM/DL Calcium Level 7.0 MG/DL Magnesium Level 1.7 MG/DL Alkaline Phosphatase 175 U/L Aspartate Amino Transf (AST/SGOT) 129 U/L Alanine Aminotransferase (ALT/SGPT) 35 U/L Lactate Dehydrogenase 313 U/L Total Bilirubin 1.1 MG/DL Direct Bilirubin 0.6 MG/DL Sodium Level 144 MEQ/L Potassium Level 3.6 MEQ/L Chloride Level 116 MEQ/L Carbon Dioxide Level 20.4 MEQ/L Anion Gap 8 MEQ/L Estimat Glomerular Filtration Rate 76 ML/MIN Protein Corrected Calcium 7.8 MG/DL Iron Level 33 MCG/DL Total Iron Binding Capacity 220 MCG/DL Percent Iron Saturation 15.0 % Ferritin 135 NG/ML Indirect Bilirubin 0.5 MG/DL Vitamin B12 Level 1386 PG/ML Folate 7.3 NG/ML Culture Results Microbiology Date/Time Source Procedure Growth Status 09/21/17 05:43 Blood Peripheral Aerobic Blood Culture - Preliminary NO GROWTH IN 2 DAYS Resulted 09/21/17 05:43 Blood Peripheral Anaerobic Blood Culture - Preliminary NO GROWTH IN 2 DAYS Resulted 09/21/17 05:30 Blood Peripheral Aerobic Blood Culture - Preliminary NO GROWTH IN 2 DAYS Resulted 09/21/17 05:30 Blood Peripheral Anaerobic Blood Culture - Preliminary NO GROWTH IN 2 DAYS Resulted Imaging Studies Last 24 hours Impressions Upper Extremity Ultrasound 09/23/17 0000 Signed Impressions: Service Date/Time: Saturday, September 23, 2017 11:27 - CONCLUSION: 1. No DVT left arm. 2. Small fluid collection left mid arm. Sedrick Johnson MD Chest X-Ray 09/23/17 0000 Signed Impressions: Service Date/Time: Saturday, September 23, 2017 13:16 - CONCLUSION: Clear lungs. Reduced bone mineralization involving the right humeral head and neck. This can be seen in regional osteoporosis but can also be seen in such etiologies as chronic infection. Dedicated shoulder x-rays could be performed if clinically warranted. Matt Castañeda Jr., MD Administered Medications Medications (Trade) Dose Ordered Sig/Nella Route PRN Reason Start Time Stop Time Status Last Admin Dose Admin Allopurinol (Zyloprim) 100 mg BID PO 09/19/17 12:00 09/23/17 08:52 Atorvastatin Calcium (Lipitor) 40 mg HS PO 09/19/17 21:00 09/22/17 21:24 Cholecalciferol (Vitamin D3) 1,000 units DAILY PO 09/19/17 12:00 09/23/17 08:53 Finasteride (Proscar) 5 mg DAILY PO 09/19/17 12:00 09/23/17 08:52 Lisinopril (Prinivil) 10 mg DAILY PO 09/19/17 12:00 Future Hold 09/21/17 08:14 Magnesium Oxide (Mag-Ox) 400 mg BID PO 09/19/17 21:00 09/23/17 08:52 Metoprolol Tartrate (Lopressor) 12.5 mg Q12H PO 09/19/17 11:00 09/23/17 10:36 Potassium Chloride (KCl) 20 meq DAILY PO 09/19/17 13:00 09/23/17 08:52 Pyridoxine HCl (Vitamin B6) 100 mg DAILY PO 09/19/17 13:00 09/23/17 08:53 Senna/Docusate Sodium (Ora-Colace) 1 tab BID PO 09/19/17 11:00 09/23/17 08:53 Sodium Chloride (NS Flush) 2 ml BID IV FLUSH 09/19/17 09:00 09/22/17 10:35 Insulin Aspart (NovoLOG SUPPLEMENTAL SCALE) 1 ACHS SLIDING SCALE SQ 09/19/17 12:00 09/23/17 12:27 Tamsulosin HCl (Flomax) 0.4 mg DAILY PO 09/19/17 16:45 09/23/17 08:52 Cefazolin Sodium/ Dextrose 50 ml @ 100 mls/hr Q8H IV 09/20/17 15:00 09/23/17 14:45 Alprazolam (Xanax) 0.125 mg Q4H PRN PO anxiety 09/21/17 14:00 09/22/17 21:24 Warfarin Sodium (Coumadin) 4 mg DAILY@16 PO 09/21/17 16:00 Future Hold 09/22/17 15:47 Aspirin (Ecotrin Ec) 81 mg DAILY PO 09/22/17 09:00 09/23/17 08:52 Cefepime HCl 2000 mg/Sodium Chloride 100 ml @ 200 mls/hr Q8H IV 09/22/17 15:00 09/23/17 16:13 Objective Remarks GENERAL: Well-nourished, well-developed patient. SKIN: Warm and dry. HEAD: Normocephalic. EYES: No scleral icterus. No injection or drainage. NECK: Supple, trachea midline. No JVD or lymphadenopathy. LYMPHATIC: No adenopathy. CARDIOVASCULAR: Regular rate and rhythm without murmurs. RESPIRATORY: Breath sounds equal bilaterally. No accessory muscle use. GASTROINTESTINAL: Abdomen soft, non-tender, nondistended. EXTREMITIES: No or edema. NEUROLOGICAL: No obvious focal deficit. Awake, alert, and oriented x3. PSYCHIATRIC: Appropriate mood and affect; insight and judgment normal. Assessment/Plan Assessment 87 year old man admitted with altered mental status after TAVR. Treated for urinary tract infection and AMS improved. New anemia, thrombocytopenia since admission. WBC low however this has improved. Haptoglobin low, elevated bilirubin. suspicious for hemolysis. Smear with schistocytes. Possibly some element of hemolysis from TAVR vs less likely TTP. Will order ADAMSTS 13 today. Jacy Ta MD Sep 23, 2017 17:28
[2017-09-23] MEDS: FUROSEMIDE 40 MG TAB PO SCH (18:42)
[2017-09-23 21:16] LABS: RETIC # 45.8 MIL/L (20.0-150.0); RETIC % 1.8 % (0.4-3.0)
[2017-09-23] MEDS: ATORVASTATIN 40 MG TAB PO SCH (21:20)
[2017-09-23] MEDS: ALPRAZolam 0.25 MG TAB PO PRN (21:20)
[2017-09-24] VITALS (11 sets, daily range): BP systolic 118–147; BP diastolic 59–69; PULSE 79–95; RESP 18–21; TEMP 97.2–99.1; O2SAT 97–100
[2017-09-24] MEDS: ceFAZolin 2 GM PREMIX 50 ML IV SCH ×4 (01:28→21:55)
[2017-09-24] MEDS: CEFEPIME INJ 2,000 MG in SODIUM CHLORIDE 0.9% INJ 100 ML IV SCH ×3 (01:29→21:54)
[2017-09-24] MEDS: METOPROLOL TARTRATE 25 MG TAB PO SCH ×3 (01:29→21:48)
[2017-09-24 06:37] LABS: HEMATOCRIT 23.6 % (39.0-51.0); HEMOGLOBIN 8.2 GM/DL (13.0-17.0); MEAN CELL VOLUME 93.2 FL (80.0-100.0); MEAN CORPUSCULAR HEMOGLOBIN 32.2 PG (27.0-34.0); MEAN CORPUSCULAR HGB CONC 34.5 % (32.0-36.0); MEAN PLATELET VOLUME 10.5 FL (7.0-11.0); PLATELET COUNT 46 TH/MM3 (150-450); RED BLOOD COUNT 2.54 MIL/MM3 (4.50-5.90); RED CELL DISTRIBUTION WIDTH 18.6 % (11.6-17.2)
[2017-09-24 06:46] LABS: INTERNATIONAL NORMALIZED RATIO 2.6 RATIO; PROTHROMBIN TIME - PATIENT 26.7 SEC (9.8-11.6)
[2017-09-24 07:07] LABS: BICARBONATE 24.1 MEQ/L (21.0-32.0); CALCIUM 8.2 MG/DL (8.5-10.1); CREATININE 1.1 MG/DL (0.60-1.30)
[2017-09-24] MEDS: ASPIRIN EC 81 MG TABEC PO SCH (09:05)
[2017-09-24] MEDS: TAMSULOSIN HCL 0.4 MG CAP PO SCH (09:05)
[2017-09-24] MEDS: CHOLECALCIFEROL (VIT D3) 1000 UNIT TAB PO SCH (09:06)
[2017-09-24] MEDS: MAGNESIUM OXIDE 400 MG TAB PO SCH ×2 (09:06→21:47)
[2017-09-24] MEDS: FUROSEMIDE 40 MG TAB PO SCH ×2 (09:06→17:44)
[2017-09-24] MEDS: FINASTERIDE 5 MG TAB PO SCH (09:07)
[2017-09-24] MEDS: DOCUSATE SODIUM 50 MG/SENNA 8.6 MG TAB PO SCH ×2 (09:07→21:47)
[2017-09-24] MEDS: PYRIDOXINE HCL 50 MG TAB PO SCH (09:07)
[2017-09-24] MEDS: INSULIN ASPART SUPPLEMENTAL SCALE SQ SCH ×4 (09:08→21:48)
[2017-09-24] MEDS: POTASSIUM CHLORIDE 20 MEQ CONTROLLED RELEASE TAB PO SCH (09:08)
[2017-09-24] MEDS ORDERED: EPIN1INJ21 IV PUSH (09:12)
[2017-09-24] MEDS ORDERED: CEFA2SOL IV (09:12)
[2017-09-24] MEDS ORDERED: SOLU250I IV PUSH (09:12)
[2017-09-24] MEDS ORDERED: EPIN1INJ21 SQ (09:12)
[2017-09-24] MEDS: ALLOPURINOL 100 MG TAB PO SCH ×2 (09:15→21:48)
[2017-09-24] MEDS: SODIUM CHLORIDE 0.9% FLUSH 10 ML FLUSH IV FLUSH SCH ×2 (09:15→21:48)
--- NOTE | 2017-09-24 09:20 | HHI.FF ---
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 Recent TAVR (valve replacement) Coded Allergies: niacin (Verified Allergy, Unknown, 09/19/17) sitagliptin (Unverified Adverse Reaction, Severe, STOMACH PAIN, 09/19/17) Administer Medication Cefazolin 2 grams IV q 8 hours (total 6 gm in 24 hr if given via pump.) Start Treatment: Sep 24, 2017 Stop Treatment: Oct 30, 2017 Additional Information Venous access: PICC Line Additional Instructions [x] Peripheral flush and dressing changes per protocol [x] Implanted port 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 [] May leave port accessed during therapy. [] May leave peripheral site accessed for duration of therapy. [x] If patient has SOB or respiratory distress, check oxygen saturation. If less than 90% or clinical signs of respiratory distress, administer oxygen at 2 L/min. via nasal cannula and notify physician. [x] Anaphylaxis/Reaction orders: * Stop infusion. * Keep IV line open with saline flush. * Notify physician. * Monitor vital signs every 15 minutes until symptoms resolve. * Check Oxygen saturation; Oxygen at 2 L/min. via nasal cannula if less than 90% or clinical signs of respiratory distress. * Administer diphenhydramine (Benadryl) 25 mg IV STAT, (unless patient has received as pre-med). May repeat once, if necessary. * Solu-Cortef 250 mg IVP over 30-60 seconds, use 100 mg vials for each dissolution. * Epinephrine (1mg/1 ml) 0.3 mg subcutaneously or IVP now with any signs of respiratory distress. * Check with physician for new additional pre-med orders if patient is re- challenged or re-treated. [x] May remove PICC line when treatment complete, after confirming with Physician. [x] If the patient is admitted to the hospital, the ED, or transferred via [facility] , complete transfer form including medication reconciliation order sheet. Laboratory Tests Weekly Labs: CBC w/diff, Creatinine, CRP, LFT's (Hepatic function test) Additional Information Please draw weeky labs, fax to BOTH MD numbers below. Also please call with abnormals, change in clinical condition or problems to: Dr.Reba Grissom or or covering ID Physician Follow up appt: Patient to schedule follow up appt with Dr.Reba Grissom within 2 weeks post discharge. ( office notified) Follow up with PCP Follow up with other MDs as planned. Counseling: Counseled about medication side effects Counseled about PICC line care and hand hygiene. Counseled about Cdiff and importance of early testing. Destiny Blanton MD Sep 24, 2017 09:20
--- NOTE | 2017-09-24 11:43 | RADRPT ---
EXAM DATE/TIME: 09/24/2017 10:50 [facility] COMPARISON: US ARM LEFT VENOUS DOPPLER, September 23, 2017, 11:27. INDICATIONS : Bilateral leg swelling. MEDICAL HISTORY : Myocardial infarction. Hypercholesterolemia. Gastroesophageal reflux disease. CAD. Hiatal hernia. CHELA D. Diabetes. Anemia. Stomach cancer. SURGICAL HISTORY : Tonsillectomy.Coronary artery stent. Prostatectomy. ENCOUNTER: Initial ACUITY: 1 day PAIN SCORE: 1/10 LOCATION: Bilateral legs. TECHNIQUE: Venous ultrasound of the left and right leg was performed from the inguinal ligament to the proximal calf. Real-time, color Doppler and spectral tracing, compression and augmentation techniques were us ed. FINDINGS: RIGHT LEG: There is normal compressibility of the deep venous system from the inguinal region to the proximal ca lf. No echogenic clot is seen in the lumen of the common femoral, femoral, popliteal, and posterior tibial veins. There is a normal response of the venous system to proximal and distal augmentation an d respiration. LEFT LEG: There is normal compressibility of the deep venous system from the inguinal region to the proximal ca lf. No echogenic clot is seen in the lumen of the common femoral, femoral, popliteal, and posterior tibial veins. There is a normal response of the venous system to proximal and distal augmentation an d respiration. CONCLUSION: 1. No DVT identified within either lower extremity. Mahamed Stafford MD on September 24, 2017 at 11:41 Board Certified Radiologist. This report was verified electronically.
--- NOTE | 2017-09-24 11:55 | RADRPT ---
EXAM DATE/TIME: 09/24/2017 11:04 [facility] COMPARISON: No previous studies available for comparison. INDICATIONS : Right arm swelling. MEDICAL HISTORY : Myocardial infarction. Gastroesophageal reflux disease. Hypercholesterolemia. Hypertension. CAD. Hiat al hernia. Diabetes. SURGICAL HISTORY : Tonsillectomy. Prostatectomy. Coronary artery stent. ENCOUNTER: Initial ACUITY: 1 day PAIN SCORE: 2/10 LOCATION: Right arm. FINDINGS: There is spontaneous flow documented in the brachial, basilic, cephalic, axillary, and subclavian vei ns. The vessels are compressible and augmentation response is documented. No filling defects are se en. The flow is phasic with respiration. Direction of flow in the jugular vein is caudal. CONCLUSION: Negative for deep venous thrombosis. Oneil Stafford MD FACR on September 24, 2017 at 11:53 Board Certified Radiologist. This report was verified electronically.
[2017-09-24] MEDS ORDERED: PHARMACY ORDERED LAB ONE (12:45)
--- NOTE | 2017-09-24 13:31 | HHI.PR ---
Subjective Remarks Patient states he feels great. States he is scrotum is back to normal. Edema is going down. Weber catheter had to be replaced last night because of leaking. Patient requesting to remove Weber catheter and do voiding trials. Hematuria has completely resolved. Objective Vitals Vital Signs Date Time Temp Pulse Resp B/P (MAP) Pulse Ox O2 Delivery O2 Flow Rate FiO2 09/24/17 11:43 98.4 87 19 146/65 (92) 99 09/24/17 10:52 79 09/24/17 07:42 97.8 85 18 133/59 (83) 99 09/24/17 05:46 97.5 90 21 147/69 (95) 97 09/24/17 01:38 97.2 84 21 141/65 (90) 97 09/23/17 21:45 98.7 91 20 136/74 (94) 100 09/23/17 21:00 91 09/23/17 16:23 98.3 90 18 138/63 (88) 99 I/O 09/23/17 09/23/17 09/23/17 09/24/17 09/24/17 09/24/17 07:00 15:00 23:00 07:00 15:00 23:00 Intake Total 200 ml Output Total 1100 ml 1100 ml 1400 ml 1350 ml Balance -1100 ml -1100 ml -1200 ml -1350 ml IV Total 200 ml Output Urine Total 1100 ml 1100 ml 1400 ml 1350 ml # Bowel Movements 1 Result Diagram: 09/24/17 0553 09/24/17 0553 Imaging Last Impressions Upper Extremity Ultrasound 09/24/17 0000 Signed Impressions: Service Date/Time: Sunday, September 24, 2017 11:04 - CONCLUSION: Negative for deep venous thrombosis. Oneil Stafford MD FACR Lower Extremity Ultrasound 09/24/17 0000 Signed Impressions: Service Date/Time: Sunday, September 24, 2017 10:50 - CONCLUSION: 1. No DVT identified within either lower extremity. Mahamed Stafford MD Chest X-Ray 09/23/17 0000 Signed Impressions: Service Date/Time: Saturday, September 23, 2017 13:16 - CONCLUSION: Clear lungs. Reduced bone mineralization involving the right humeral head and neck. This can be seen in regional osteoporosis but can also be seen in such etiologies as chronic infection. Dedicated shoulder x-rays could be performed if clinically warranted. Matt Castañeda Jr., MD Abdomen/Pelvis CT 09/19/17 0000 Signed Impressions: Service Date/Time: Tuesday, September 19, 2017 07:14 - CONCLUSION: 1. Bilateral renal calculi and simple cysts. 2. No evidence of obstructive uropathy. 3. Prostatomegaly. 4. Uncomplicated diverticulosis. 5. No acute process. Washington Parra MD Objective Remarks AAOx3, NAD sitting in chair Bilateral bibasilar crackles, no wheezing or rhonchi S1S2 (+) RRR, no MRG abdomen is soft, NT, ND Edematous non tender upper left extremity. some ecchymotic lesions noted in the lateral forearms. No other rash or petechiae noted. There is +2 edema in bilateral extremities. Procedures None Medications and IVs Current Medications Medications (Trade) Dose Ordered Sig/Nella Route Start Time Stop Time Status Last Admin (Zyloprim) 100 mg BID PO 09/19/17 12:00 09/24/17 09:15 (Lipitor) 40 mg HS PO 09/19/17 21:00 09/23/17 21:20 (Vitamin D3) 1,000 units DAILY PO 09/19/17 12:00 09/24/17 09:06 (Plavix) 75 mg DAILY PO 09/19/17 13:00 Future Hold (Proscar) 5 mg DAILY PO 09/19/17 12:00 09/24/17 09:07 (Prinivil) 10 mg DAILY PO 09/19/17 12:00 Future Hold 09/21/17 08:14 (Mag-Ox) 400 mg BID PO 09/19/17 21:00 09/24/17 09:06 (Lopressor) 12.5 mg Q12H PO 09/19/17 11:00 09/24/17 12:20 (KCl) 20 meq DAILY PO 09/19/17 13:00 09/24/17 09:08 (Vitamin B6) 100 mg DAILY PO 09/19/17 13:00 09/24/17 09:07 (Tylenol) 650 mg Q4H PRN PO 09/19/17 09:00 (Zofran Inj) 4 mg Q6H PRN IVP 09/19/17 09:00 (Reglan Inj) 5 mg Q6H PRN IV PUSH 09/19/17 09:00 (Tylenol) 650 mg Q6H PRN PO 09/19/17 09:00 (Percocet 5-325 Mg) 1 tab Q6H PRN PO 09/19/17 09:00 (Percocet 10-325 Mg) 1 tab Q6H PRN PO 09/19/17 09:00 (Morphine Inj) 2 mg Q3H PRN IV PUSH 09/19/17 09:00 (Morphine Inj) 4 mg Q3H PRN IV PUSH 09/19/17 09:00 (Narcan Inj) 0.4 mg UNSCH PRN IV PUSH 09/19/17 09:00 (Ora-Colace) 1 tab BID PO 09/19/17 11:00 09/24/17 09:07 (Milk Of Magnesia Liq) 30 ml Q12H PRN PO 09/19/17 09:00 (Senokot) 17.2 mg Q12H PRN PO 09/19/17 09:00 (Dulcolax Supp) 10 mg DAILY PRN RECTAL 09/19/17 09:00 (Lactulose Liq) 30 ml DAILY PRN PO 09/19/17 09:00 (NS Flush) 2 ml UNSCH PRN IV FLUSH 09/19/17 09:00 (NS Flush) 2 ml BID IV FLUSH 09/19/17 09:00 09/24/17 09:15 (NovoLOG SUPPLEMENTAL SCALE) 1 ACHS SLIDING SCALE SQ 09/19/17 12:00 09/24/17 12:20 (D50w (Vial) Inj) 50 ml UNSCH PRN IV PUSH 09/19/17 09:00 (Glucagon Inj) 1 mg UNSCH PRN OTHER 09/19/17 09:00 (Pill Splitter) 1 ea UNSCH PRN OTHER 09/19/17 13:45 (Flomax) 0.4 mg DAILY PO 09/19/17 16:45 09/24/17 09:05 Cefazolin Sodium/ Dextrose 50 ml @ 100 mls/hr Q8H IV 09/20/17 15:00 09/24/17 06:07 (Xanax) 0.125 mg Q4H PRN PO 09/21/17 14:00 09/23/17 21:20 (Coumadin) 4 mg DAILY@16 PO 09/21/17 16:00 Future Hold 09/22/17 15:47 (Ecotrin Ec) 81 mg DAILY PO 09/22/17 09:00 09/24/17 09:05 Lactated Ringer's 1,000 ml @ 30 mls/hr Q24H PRN IV 09/22/17 04:15 09/25/17 04:14 Sodium Chloride 500 ml @ 30 mls/hr [id number] PRN IV 09/22/17 04:15 09/25/17 04:14 (Betadine 5% Antisepsis Kit) 1 applic [employer] PRN EACH NARE 09/22/17 04:15 09/25/17 04:14 (Chlorhexidine 2% Cloth) 3 pack [employer] PRN TOPICAL 09/22/17 04:15 09/25/17 04:14 (Lasix) 40 mg BID@18 PO 09/23/17 18:00 09/24/17 09:06 Pharmacy Profile Note 0 ml @ 0 mls/hr UNSCH OTHER 09/23/17 13:00 Cefepime HCl 2000 mg/Sodium Chloride 100 ml @ 200 mls/hr Q12H IV 09/24/17 20:00 A/P Problem List: (1) Anemia ICD Code: D64.9 - Anemia, unspecified (2) Thrombocytopenia ICD Code: D69.6 - Thrombocytopenia, unspecified (3) MILLI (acute kidney injury) ICD Code: N17.9 - Acute kidney failure, unspecified (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 - Presence of prosthetic heart valve (5) Elevated troponin ICD Code: R74.8 - Abnormal levels of other serum enzymes (6) Diabetes mellitus ICD Code: E11.9 - Type 2 diabetes mellitus without complications (7) Anxiety ICD Code: F41.9 - Anxiety disorder, unspecified (8) Sepsis ICD Code: A41.9 - Sepsis, unspecified organism Status: Acute (9) Bacteremia ICD Code: R78.81 - Bacteremia (10) Hematuria ICD Code: R31.9 - Hematuria, unspecified (11) Atrial fibrillation ICD Code: I48.91 - Atrial fibrillation Status: Acute Assessment and Plan Severe sepsis/ Bacteremia Blood cultures growing staph aureus, urine culture growing pseudomonas. ID consult appreciated. Limited echo without evidence of vegetation. JULIO 09/22 was negative for endocarditis. - continue cefazolin and Cefepime per ID. - follow repeat blood cultures. - IVFs. - PT/ OT. 09/24 patient to complete treatment for Pseudomonas UTI and will be discharged on IV cefazolin once this has been completed. 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 He is on chronic anticoagulation with Coumadin, Plavix and aspirin. Urology consult appreciated. - continue Weber per urology. - hold anticoagulation. - follow CBC and transfuse as needed. - 09/23 Hematuria has resolved - will Dc Weber catheter and start voiding trials if ok with urology. -09/24 urology recommends discharging with Weber, however patient wants to do voiding trials. I will DC Weber and voiding trials. Will check bladder scan for postvoid residual volume. Thrombocytopenia Unsure of etiology. It appears he was exposed to heparin in August. 09/23 hematology consultation recommendations appreciated. Doubt patient in DIC since clinically looks better. Fibrinogen is within normal range at 341. Platelets are ending up. Suspect cytopenia secondary to combination of sepsis along with low bone marrow reserve. Continue to monitor platelets. 09/24 discussed the case with Dr. Ta. She suspects there is possibly some degree of hemolysis since haptoglobin is less than 10. Peripheral smear was requested. Peripheral smear shows severe normochromic normocytic anemia, moderate thrombocytopenia and occasional fragmented red blood cells with the possibility of a low-grade microangiopathic hemolytic process could not be excluded. Follow-up hematology recommendations. Platelets are stable at 46, 000. Acute renal failure Appears to be secondary to sepsis, dehydration. Resolving with fluids. 09/23 Acute kidney injury likely due to prerenal azotemia due to sepsis and dehydration. Now resolved. DC IV fluids. Recent TAVR for aortic valve August 27. Cardiology consult appreciated. JULIO noted. - continue cardiac regimen. - follow up with cardiology. Elevated troponin Troponin peaked at 0.13. Likely s/t sepsis. - cardiology following. - telemetry. Diabetes mellitus Well controlled at this time. - continue on sliding scale coverage along with diabetic diet. Anxiety The patient endorses anxiety. - Low-dose of Xanax as needed. Supratherapeutic INR. Coumadin. INR went up to 2.7. Continue to monitor PT/INR daily. We'll consult pharmacy to help with dosing. Atrial fibrillation. On chronic anti-correlation with Coumadin now on hold secondary to hematuria and supratherapeutic INR. Continue telemetry monitoring. Left upper extremity edema. DVT ruled out with negative lower extremity Dopplers ultrasound. Chest congestion for/cough Patient complaining of chest congestion and cough. Chest x-ray ordered. 09/24 chest x-ray shows clear lungs without infiltrates. Continue Lasix 40 mg p.o. twice daily. Bilateral extremities edema. Due to fluid overload. Continue oral Lasix. Daily weights. DVT prophylaxis: Supratherapeutic INR Discharge Planning Pending ID clearance. Patient will leave with IV antibiotics. Pending hematology clearance as well. Problem Qualifiers (1) Sepsis: Qualified Codes: A41.9 - Sepsis, unspecified organism Shyam Jeffrey MD Sep 24, 2017 13:31
--- NOTE | 2017-09-24 13:33 | PD.ONC.PN ---
Subjective Subjective Remarks Afebrile overnight. Patient resting in room with at bedside. tired of being in the hospital. does not like the food here. denies obvious bleeding. Objective Data Date Time Temp Pulse Resp B/P (MAP) Pulse Ox O2 Delivery O2 Flow Rate FiO2 09/24/17 11:43 98.4 87 19 146/65 (92) 99 09/24/17 10:52 79 09/24/17 07:42 97.8 85 18 133/59 (83) 99 09/24/17 05:46 97.5 90 21 147/69 (95) 97 09/24/17 01:38 97.2 84 21 141/65 (90) 97 09/23/17 21:45 98.7 91 20 136/74 (94) 100 09/23/17 21:00 91 09/23/17 16:23 98.3 90 18 138/63 (88) 99 09/24/17 09/24/17 09/24/17 07:00 15:00 23:00 Intake Total 200 ml Output Total 1400 ml 1350 ml Balance -1200 ml -1350 ml Result Diagram: 09/24/17 0553 09/24/17 0553 Laboratory Results Laboratory Tests Test 09/23/17 20:57 09/24/17 05:53 Reticulocyte Count 1.8 % Absolute Reticulocyte Count 45.8 MIL/L White Blood Count 4.0 TH/MM3 Red Blood Count 2.54 MIL/MM3 Hemoglobin 8.2 GM/DL Hematocrit 23.6 % Mean Corpuscular Volume 93.2 FL Mean Corpuscular Hemoglobin 32.2 PG Mean Corpuscular Hemoglobin Concent 34.5 % Red Cell Distribution Width 18.6 % Platelet Count 46 TH/MM3 Mean Platelet Volume 10.5 FL Prothrombin Time 26.7 SEC Prothromb Time International Ratio 2.6 RATIO Fibrinogen 368 mg/dL Blood Urea Nitrogen 29 MG/DL Creatinine 1.10 MG/DL Random Glucose 140 MG/DL Calcium Level 8.2 MG/DL Sodium Level 138 MEQ/L Potassium Level 3.6 MEQ/L Chloride Level 107 MEQ/L Carbon Dioxide Level 24.1 MEQ/L Anion Gap 7 MEQ/L Estimat Glomerular Filtration Rate 63 ML/MIN Lactate Dehydrogenase 325 U/L Imaging Studies Last 24 hours Impressions Upper Extremity Ultrasound 09/24/17 0000 Signed Impressions: Service Date/Time: Sunday, September 24, 2017 11:04 - CONCLUSION: Negative for deep venous thrombosis. Oneil Stafford MD FACR Lower Extremity Ultrasound 09/24/17 0000 Signed Impressions: Service Date/Time: Sunday, September 24, 2017 10:50 - CONCLUSION: 1. No DVT identified within either lower extremity. Mahamed Stafford MD Administered Medications Medications (Trade) Dose Ordered Sig/Nella Route PRN Reason Start Time Stop Time Status Last Admin Dose Admin Allopurinol (Zyloprim) 100 mg BID PO 09/19/17 12:00 09/24/17 09:15 Atorvastatin Calcium (Lipitor) 40 mg HS PO 09/19/17 21:00 09/23/17 21:20 Cholecalciferol (Vitamin D3) 1,000 units DAILY PO 09/19/17 12:00 09/24/17 09:06 Finasteride (Proscar) 5 mg DAILY PO 09/19/17 12:00 09/24/17 09:07 Lisinopril (Prinivil) 10 mg DAILY PO 09/19/17 12:00 Future Hold 09/21/17 08:14 Magnesium Oxide (Mag-Ox) 400 mg BID PO 09/19/17 21:00 09/24/17 09:06 Metoprolol Tartrate (Lopressor) 12.5 mg Q12H PO 09/19/17 11:00 09/24/17 12:20 Potassium Chloride (KCl) 20 meq DAILY PO 09/19/17 13:00 09/24/17 09:08 Pyridoxine HCl (Vitamin B6) 100 mg DAILY PO 09/19/17 13:00 09/24/17 09:07 Senna/Docusate Sodium (Ora-Colace) 1 tab BID PO 09/19/17 11:00 09/24/17 09:07 Sodium Chloride (NS Flush) 2 ml BID IV FLUSH 09/19/17 09:00 09/24/17 09:15 Insulin Aspart (NovoLOG SUPPLEMENTAL SCALE) 1 ACHS SLIDING SCALE SQ 09/19/17 12:00 09/24/17 12:20 Tamsulosin HCl (Flomax) 0.4 mg DAILY PO 09/19/17 16:45 09/24/17 09:05 Cefazolin Sodium/ Dextrose 50 ml @ 100 mls/hr Q8H IV 09/20/17 15:00 09/24/17 06:07 Alprazolam (Xanax) 0.125 mg Q4H PRN PO anxiety 09/21/17 14:00 09/23/17 21:20 Warfarin Sodium (Coumadin) 4 mg DAILY@16 PO 09/21/17 16:00 Future Hold 09/22/17 15:47 Aspirin (Ecotrin Ec) 81 mg DAILY PO 09/22/17 09:00 09/24/17 09:05 Furosemide (Lasix) 40 mg BID@,18 PO 09/23/17 18:00 09/24/17 09:06 Objective Remarks GENERAL: Pleasant elderly male, lying supine in bed in nad. SKIN: Warm and dry. HEAD: Normocephalic. EYES: No scleral icterus. No injection or drainage. NECK: Supple, trachea midline. CARDIOVASCULAR: Regular rate and rhythm RESPIRATORY: Breath sounds equal bilaterally. No accessory muscle use. GASTROINTESTINAL: Abdomen soft, non-tender, nondistended. EXTREMITIES: No cyanosis. bilateral lower extremities with mild edema. bilateral upper extremities with mild edema. NEUROLOGICAL: No obvious focal deficit. Awake, alert, and oriented x3. Assessment/Plan Problem List: (1) Normocytic anemia ICD Codes: D64.9 - Anemia, unspecified Plan: --TIBC, % saturation, serum iron all low. ferritin WNL --LDH mildly elevated, haptoglobin low, indirect bilirubin not elevated. hgb also shari slightly today, which argues against hemolysis. --B12 elevated (2) Thrombocytopenia ICD Codes: D69.6 - Thrombocytopenia, unspecified Plan: --may be some degree of consumption from prosthetic valve/TAVR, other differential includes DIC/sepsis --LDH mildly elevated and haptoglobin low. --HIT negative. --previous patient of Dr. Shah, now sees Dr. Cee --cannot rule of medication effect. --Suspect that sepsis and antibiotic use in the setting of poor bone marrow reserve is contributing to new pancytopenia. --no splenomegaly Assessment 87y/o male admitted on 09/19 with urosepsis. Hematology following for anemia + thrombocytopenia. history of congestive heart failure s/p TAVR 08/27 chronic atrial fibrillation on warfarin, history of neuroendocrine cancer, coronary artery disease, hyperlipidemia, hypertension, BPH, GERD. h/o cardiac stents, cataracts with lens implants, prostate surgery, tonsillectomy, prostatectomy, nasal polyps. Plan 1. check bilateral lower extremity leg dopplers 2. obtain repeat LDH/haptoglobin, carrie test 3. monitor CBC, may need to consider plasma exchange if counts continue to worsen. Attending Statement The exam, history, and the medical decision-making described in the above note were completed with the assistance of the mid-level provider. I reviewed and agree with the findings presented. I attest that I had a [id number] encounter with the patient on the same day, and personally performed and documented my assessment and findings in the medical record. eager to go home awake and alert no abdominal pain discussed with him that the lab findings and peripheral smear review is concerning for TTP which is a life threatening condition ADAMTS 13 pending If LDH continues to go up and PLTs drop will start plasma exchange Haptoglobin was low. Direct carrie was negative peripheral smear review again tomorrow by pathology Kalli Mcnair Sep 24, 2017 13:33 Adan Cee MD Sep 24, 2017 23:12
--- NOTE | 2017-09-24 14:44 | ECHRPT ---
Indication: SEPSIS CONCLUSIONS BP: / HR: Rhythm: Sinus MEASUREMENTS (Male / Female) Normal Values Technical Quality:Fair DOPPLER TR Peak Velocity 232.0 cm/s Pulmonary Artery Systolic 31.5 mmHg TR Peak Gradient 21.5 mmHg Right Ventricular Systoli 31.5 mmHg Right Atrial Pressure 10.0 mmHg Medications Complications Proc. Components FINDINGS LEFT VENTRICLE Normal left ventricular size and wall thickness. The left ventricular systolic function is normal wi th an estimated ejection fraction in the range of 60-65%. Left ventricular diastolic function parameters a re normal. RIGHT VENTRICLE Normal right ventricular size and systolic function. LEFT ATRIUM The left atrial size is mildly dilated. RIGHT ATRIUM The right atrial size is normal. ATRIAL APPENDAGES Normal left atrial appendage size with no evidence of thrombus formation. ATRIAL SEPTUM A patent foramen ovale is present with a [id number] shunt demonstrated by color flow Doppler interrogation. AORTA mild plaquing MITRAL VALVE Moderate mitral annular calcification. Mild mitral valve regurgitation. AORTIC VALVE normal appearing TAVR TRICUSPID VALVE There is mild tricuspid valve regurgitation. VESSELS The inferior vena cava is normal in size. PULMONARY VALVE The pulmonary valve is not well visualized. PERICADIUM No pericardial effusion. OTHER FINDINGS No vegetations seen Greg Calzada MD (Electronically Signed) Final Date:24 September 2017 14:43
[2017-09-24] MEDS ORDERED: SODIUM CHLORIDE 0.9% FLUSH 10 ML FLUSH IV FLUSH PRN (15:45)
--- NOTE | 2017-09-24 17:29 | RADRPT ---
EXAM DATE/TIME: 09/24/2017 16:59 [facility] COMPARISON: CHEST SINGLE AP, September 23, 2017, 13:16. INDICATIONS : PICC line placement. MEDICAL HISTORY : Diabetes mellitus type II. Congestive heart failure. Hypercholesterolemia. Hypertension.Cardiovascula r disease. Hernia, hiatal. SURGICAL HISTORY : Aortic valve replacement. Coronary artery stent. Prostatectomy. ENCOUNTER: Subsequent ACUITY: 1 week PAIN SCORE: 0/10 LOCATION: Bilateral chest FINDINGS: A right-sided PICC line has been placed. The tip is at the cava atrial junction. Heart is at the uppe r limits of normal in terms of size. Stent mounted aortic valve observed. Pulmonary vasculature is no rmal. Lungs are clear without infiltrate or effusion. Focal reduced bone mineralization of the right humeral head. CONCLUSION: 1. PICC line in good position. 2. Regional loss of bone mineralization involving the right humeral head. See previous reports for di scussion. Matt Castañeda Jr., MD on September 24, 2017 at 17:26 Board Certified Radiologist. This report was verified electronically.
[2017-09-24] MEDS: ATORVASTATIN 40 MG TAB PO SCH (21:47)
[2017-09-24] MEDS: ALPRAZolam 0.25 MG TAB PO PRN (21:52)
[2017-09-25] VITALS (9 sets, daily range): BP systolic 118–148; BP diastolic 56–69; PULSE 84–92; RESP 18–20; TEMP 97.7–98.8; O2SAT 97–100
[2017-09-25] MEDS: ceFAZolin 2 GM PREMIX 50 ML IV SCH ×3 (06:17→22:31)
[2017-09-25 06:36] LABS: AUTOMATED NEUTROPHIL # 4.8 TH/MM3 (1.8-7.7); BASOPHIL % 0.8 % (0.0-2.0); EOSINOPHIL # 0.1 TH/MM3 (0-0.4); EOSINOPHIL % 2.2 % (0.0-4.0); HEMATOCRIT 25.5 % (39.0-51.0); HEMOGLOBIN 8.8 GM/DL (13.0-17.0); LYMPH % 6.2 % (9.0-44.0); LYMPHOCYTE # 0.4 TH/MM3 (1.0-4.8); MEAN CELL VOLUME 93.3 FL (80.0-100.0); MEAN CORPUSCULAR HEMOGLOBIN 32.1 PG (27.0-34.0); MEAN CORPUSCULAR HGB CONC 34.4 % (32.0-36.0); MEAN PLATELET VOLUME 11.4 FL (7.0-11.0); MONO % 8.3 % (0.0-8.0); MONOCYTE # 0.5 TH/MM3 (0-0.9); NEUT % 82.5 % (16.0-70.0); PLATELET COUNT 68 TH/MM3 (150-450); RED BLOOD COUNT 2.73 MIL/MM3 (4.50-5.90); RED CELL DISTRIBUTION WIDTH 18.6 % (11.6-17.2); WHITE BLOOD COUNT 5.8 TH/MM3 (4.0-11.0)
[2017-09-25 06:44] LABS: INTERNATIONAL NORMALIZED RATIO 2.8 RATIO; PROTHROMBIN TIME - PATIENT 28.2 SEC (9.8-11.6)
[2017-09-25 06:54] LABS: ALBUMIN 2.7 GM/DL (3.4-5.0); BICARBONATE 28.6 MEQ/L (21.0-32.0); CALCIUM 8.3 MG/DL (8.5-10.1); CREATININE 1.15 MG/DL (0.60-1.30); DIRECT BILIRUBIN ADULT 0.8 MG/DL (0.0-0.2)
[2017-09-25 06:55] LABS: INDIRECT BILIRUBIN 0.9 MG/DL (0.0-0.8); TOTAL BILIRUBIN ADULT 1.7 MG/DL (0.2-1.0); TOTAL PROTEIN 6.4 GM/DL (6.4-8.2)
[2017-09-25] MEDS: TAMSULOSIN HCL 0.4 MG CAP PO SCH (07:37)
[2017-09-25] MEDS: FINASTERIDE 5 MG TAB PO SCH (07:37)
[2017-09-25] MEDS: CHOLECALCIFEROL (VIT D3) 1000 UNIT TAB PO SCH (07:37)
[2017-09-25] MEDS: CEFEPIME INJ 2,000 MG in SODIUM CHLORIDE 0.9% INJ 100 ML IV SCH ×2 (07:37→21:32)
[2017-09-25] MEDS: DOCUSATE SODIUM 50 MG/SENNA 8.6 MG TAB PO SCH ×2 (07:37→21:33)
[2017-09-25] MEDS: FUROSEMIDE 40 MG TAB PO SCH ×2 (07:38→17:26)
[2017-09-25] MEDS: ASPIRIN EC 81 MG TABEC PO SCH (07:38)
[2017-09-25] MEDS: MAGNESIUM OXIDE 400 MG TAB PO SCH ×2 (07:38→21:33)
[2017-09-25] MEDS: PYRIDOXINE HCL 50 MG TAB PO SCH (07:38)
[2017-09-25] MEDS: ALLOPURINOL 100 MG TAB PO SCH ×2 (07:38→21:33)
[2017-09-25] MEDS: POTASSIUM CHLORIDE 20 MEQ CONTROLLED RELEASE TAB PO SCH (07:38)
[2017-09-25] MEDS: SODIUM CHLORIDE 0.9% FLUSH 10 ML FLUSH IV FLUSH SCH ×3 (07:38→21:32)
[2017-09-25] MEDS: INSULIN ASPART SUPPLEMENTAL SCALE SQ SCH ×4 (07:59→21:32)
[2017-09-25] MEDS ORDERED: POTASSIUM CHLORIDE 10 MEQ CONTROLLED RELEASE TAB PO ONE (09:00)
[2017-09-25 09:47] LABS: HELMET CELLS OCC (NORMAL); OVALOCYTES 1+ (NORMAL)
[2017-09-25] MEDS: CLOTRIMAZOLE 1% CREAM 15 GM TOPICAL SCH ×2 (11:02→21:33)
[2017-09-25] MEDS: METOPROLOL TARTRATE 25 MG TAB PO SCH ×2 (11:03→21:32)
--- NOTE | 2017-09-25 11:38 | PD.ONC.PN ---
Subjective Subjective Remarks Afebrile overnight. Patient feeling good today. hoping to go home. denies bleeding. he has noticed continued swelling in his testicles and penis. no pain. Objective Data Date Time Temp Pulse Resp B/P (MAP) Pulse Ox O2 Delivery O2 Flow Rate FiO2 09/25/17 11:07 97.9 91 20 118/56 (76) 99 09/25/17 08:27 97.7 90 20 148/69 (95) 100 09/25/17 04:11 84 09/25/17 04:00 97.9 92 18 129/60 (83) 98 09/25/17 00:00 98.1 90 18 131/60 (83) 97 09/24/17 20:22 99.1 95 20 131/69 (89) 100 09/24/17 20:03 92 09/24/17 18:13 88 09/24/17 16:24 98.0 86 19 118/61 (80) 99 09/24/17 13:17 90 09/24/17 11:43 98.4 87 19 146/65 (92) 99 09/25/17 09/25/17 09/25/17 07:00 15:00 23:00 Intake Total 150 ml 50 ml Output Total 800 ml 250 ml Balance -650 ml -200 ml Result Diagram: 09/25/1761909/25/17619 Laboratory Results Laboratory Tests Test 09/25/17 06:20 White Blood Count 5.8 TH/MM3 Red Blood Count 2.73 MIL/MM3 Hemoglobin 8.8 GM/DL Hematocrit 25.5 % Mean Corpuscular Volume 93.3 FL Mean Corpuscular Hemoglobin 32.1 PG Mean Corpuscular Hemoglobin Concent 34.4 % Red Cell Distribution Width 18.6 % Platelet Count 68 TH/MM3 Mean Platelet Volume 11.4 FL Neutrophils (%) (Auto) 82.5 % Lymphocytes (%) (Auto) 6.2 % Monocytes (%) (Auto) 8.3 % Eosinophils (%) (Auto) 2.2 % Basophils (%) (Auto) 0.8 % Neutrophils # (Auto) 4.8 TH/MM3 Lymphocytes # (Auto) 0.4 TH/MM3 Monocytes # (Auto) 0.5 TH/MM3 Eosinophils # (Auto) 0.1 TH/MM3 Basophils # (Auto) 0.0 TH/MM3 CBC Comment AUTO DIFF Differential Comment AUTO DIFF CONFIRMED Platelet Estimate LOW Platelet Morphology Comment NORMAL Ovalocytes 1+ Helmet Cells OCC Haptoglobin LESS THAN 10 MG/DL Prothrombin Time 28.2 SEC Prothromb Time International Ratio 2.8 RATIO Blood Urea Nitrogen 24 MG/DL Creatinine 1.15 MG/DL Random Glucose 149 MG/DL Total Protein 6.4 GM/DL Albumin 2.7 GM/DL Calcium Level 8.3 MG/DL Alkaline Phosphatase 197 U/L Aspartate Amino Transf (AST/SGOT) 88 U/L Alanine Aminotransferase (ALT/SGPT) 20 U/L Lactate Dehydrogenase 329 U/L Total Bilirubin 1.7 MG/DL Direct Bilirubin 0.8 MG/DL Sodium Level 137 MEQ/L Potassium Level 3.2 MEQ/L Chloride Level 102 MEQ/L Carbon Dioxide Level 28.6 MEQ/L Anion Gap 6 MEQ/L Estimat Glomerular Filtration Rate 60 ML/MIN Indirect Bilirubin 0.9 MG/DL Administered Medications Medications (Trade) Dose Ordered Sig/Nella Route PRN Reason Start Time Stop Time Status Last Admin Dose Admin Allopurinol (Zyloprim) 100 mg BID PO 09/19/17 12:00 09/25/17 07:38 Atorvastatin Calcium (Lipitor) 40 mg HS PO 09/19/17 21:00 09/24/17 21:47 Cholecalciferol (Vitamin D3) 1,000 units DAILY PO 09/19/17 12:00 09/25/17 07:37 Finasteride (Proscar) 5 mg DAILY PO 09/19/17 12:00 09/25/17 07:37 Lisinopril (Prinivil) 10 mg DAILY PO 09/19/17 12:00 Future Hold 09/21/17 08:14 Magnesium Oxide (Mag-Ox) 400 mg BID PO 09/19/17 21:00 09/25/17 07:38 Metoprolol Tartrate (Lopressor) 12.5 mg Q12H PO 09/19/17 11:00 09/25/17 11:03 Potassium Chloride (KCl) 20 meq DAILY PO 09/19/17 13:00 09/25/17 07:38 Pyridoxine HCl (Vitamin B6) 100 mg DAILY PO 09/19/17 13:00 09/25/17 07:38 Senna/Docusate Sodium (Ora-Colace) 1 tab BID PO 09/19/17 11:00 09/25/17 07:37 Magnesium Hydroxide (Milk Of Magnesia Liq) 30 ml Q12H PRN PO Mild constipation 09/19/17 09:00 09/25/17 10:18 Sennosides (Senokot) 17.2 mg Q12H PRN PO Moderate constipation 09/19/17 09:00 09/25/17 10:18 Lactulose (Lactulose Liq) 30 ml DAILY PRN PO SEVERE CONSITIPATION 09/19/17 09:00 09/25/17 10:18 Sodium Chloride (NS Flush) 2 ml BID IV FLUSH 09/19/17 09:00 09/25/17 07:38 Insulin Aspart (NovoLOG SUPPLEMENTAL SCALE) 1 ACHS SLIDING SCALE SQ 09/19/17 12:00 09/25/17 07:59 Tamsulosin HCl (Flomax) 0.4 mg DAILY PO 09/19/17 16:45 09/25/17 07:37 Cefazolin Sodium/ Dextrose 50 ml @ 100 mls/hr Q8H IV 09/20/17 15:00 09/25/17 06:17 Alprazolam (Xanax) 0.125 mg Q4H PRN PO anxiety 09/21/17 14:00 09/24/17 21:52 Warfarin Sodium (Coumadin) 4 mg DAILY@16 PO 09/21/17 16:00 Future Hold 09/22/17 15:47 Aspirin (Ecotrin Ec) 81 mg DAILY PO 09/22/17 09:00 09/25/17 07:38 Furosemide (Lasix) 40 mg BID@,18 PO 09/23/17 18:00 09/25/17 07:38 Cefepime HCl 2000 mg/Sodium Chloride 100 ml @ 200 mls/hr Q12H IV 09/24/17 20:00 09/25/17 07:37 Sodium Chloride (NS Flush) See Protocol DAILY IV FLUSH 09/25/17 09:00 09/25/17 07:39 Heparin Sodium (Porcine) (Heparin Central Flush) See Protocol DAILY IV FLUSH 09/25/17 09:00 09/25/17 07:39 Clotrimazole (Lotrimin 1% Cream) 1 applic Q12HR TOPICAL 09/25/17 10:30 09/25/17 11:02 Objective Remarks GENERAL: Pleasant elderly male, lying supine in bed in nad. SKIN: Warm and dry. HEAD: Normocephalic. EYES: No scleral icterus. No injection or drainage. NECK: Supple, trachea midline. CARDIOVASCULAR: Regular rate and rhythm RESPIRATORY: Breath sounds equal bilaterally. No accessory muscle use. GASTROINTESTINAL: Abdomen soft, non-tender, nondistended. GENITAL: Penis is uncircumcised. testicles swollen. there is mild inflammation of the glans penis and prepuce. EXTREMITIES: No cyanosis. bilateral lower extremities with mild edema. bilateral upper extremities with mild edema. NEUROLOGICAL: awake and alert, normal speech. moving all extremities. Assessment/Plan Problem List: (1) Normocytic anemia ICD Codes: D64.9 - Anemia, unspecified Plan: --TIBC, % saturation, serum iron all low. ferritin WNL --LDH mildly elevated, haptoglobin low, indirect bilirubin not elevated. hgb also shari slightly today, which argues against hemolysis. --B12 elevated (2) Thrombocytopenia ICD Codes: D69.6 - Thrombocytopenia, unspecified Plan: --may be some degree of consumption from prosthetic valve/TAVR, other differential includes DIC/sepsis --LDH mildly elevated and haptoglobin low. --HIT negative. --previous patient of Dr. Shah, now sees Dr. Cee --cannot rule of medication effect. --Suspect that sepsis and antibiotic use in the setting of poor bone marrow reserve is contributing to new pancytopenia. --no splenomegaly Assessment 87y/o male admitted on 09/19 with urosepsis. Hematology following for anemia + thrombocytopenia. history of congestive heart failure s/p TAVR 08/27 chronic atrial fibrillation on warfarin, history of neuroendocrine cancer, coronary artery disease, hyperlipidemia, hypertension, BPH, GERD. h/o cardiac stents, cataracts with lens implants, prostate surgery, tonsillectomy, prostatectomy, nasal polyps. Plan 1. await [id number]-- I spoke with Juanis in the lab, the earliest this test will return is tomorrow. if it does not return tomorrow, it will not return until Friday. we need the test to return with a normal [id number] level before clearing the patient for discharge. 2. monitor CBC, encouraged that platelets and hgb are rising. Attending Statement The exam, history, and the medical decision-making described in the above note were completed with the assistance of the mid-level provider. I reviewed and agree with the findings presented. I attest that I had a [id number] encounter with the patient on the same day, and personally performed and documented my assessment and findings in the medical record. patient seen earlier in the day sitting up in chair at bedside PLTs lightly up today, Hb 8.8 ADAMTS 13 levels pending -- once the results are available and activity within normal range--ok to d/c discussed with Kalli Dickens Sep 25, 2017 11:38 Adan Cee MD Sep 25, 2017 22:11
--- NOTE | 2017-09-25 13:12 | HHI.IDPN ---
Subjective Subjective Remarks Mr. Miller is a 87-year-old male with past medical history significant for severe aortic stenosis, CHF. Patient was deemed as a candidate for Transcatheter aortic valve replacement(TAVR) and electively underwent procedure on 08/27/[address]Cary Calle per Operative report. Patient reports he had a transvenous temporary pacemaker that was removed from his right neck within 1 day.He also reports use of right groin for the TAVR access. He reports preoperatively there was difficulty placing a lópez catheter and he had hematuria and Urology was involved. He goes on to report he was discharged with a lópez catheter in place. He reports enroute home while on hospital premises he had a fall with abrasions to bilateral knees and left side of his forehead with a gash on his nose and nasal bleed. He was in the ER for observation and was discharged home after few hours. Post operatively he otherwise did ok from cardiac standpoint. He did see the urologist twice and ultimately upon his request the lópez catheter was removed. One day prior to admission patient's reports he became acutely confused( not acting his normal self) and had high grade fevers, urinary symptoms. He was brought in by ambulance after having fevers and dysuria and change in mental status at home. In the emergency department to have a urinary tract infection, will be admitted for urinary tract infection and severe sepsis. Patient had blood cultures drawn on admission which are positive 4 out of 4 bottles for Gram positive cocci in pairs and clusters. ID consulted for evaluation and Mment of Severe Sepsis, GP bacteremia, abnormal UA. Overnight events reviewed. No fevers No rash no diarrhea Echo read as valves could not be clearly visualized. Discussed with patient possible need for JULIO. Will discuss with Dr. lund. Antibiotics Ancef IV Vancomycin IV Lines Line sites with no e/o infection Past Medical History reviewed Allergies: Coded Allergies: niacin (Verified Allergy, Unknown, 09/19/17) sitagliptin (Unverified Adverse Reaction, Severe, STOMACH PAIN, 09/19/17) Objective . Vital Signs Date Time Temp Pulse Resp B/P (MAP) Pulse Ox O2 Delivery O2 Flow Rate FiO2 09/25/17 11:07 97.9 91 20 118/56 (76) 99 09/25/17 08:27 97.7 90 20 148/69 (95) 100 09/25/17 04:11 84 09/25/17 04:00 97.9 92 18 129/60 (83) 98 09/25/17 00:00 98.1 90 18 131/60 (83) 97 09/24/17 20:22 99.1 95 20 131/69 (89) 100 09/24/17 20:03 92 09/24/17 18:13 88 09/24/17 16:24 98.0 86 19 118/61 (80) 99 09/24/17 13:17 90 09/25/17 09/25/17 09/26/17 15:00 23:00 07:00 Intake Total 50 ml Output Total 250 ml Balance -200 ml IV Total 50 ml Output Urine Total 250 ml # Voids 1 . Laboratory Tests Test 09/23/17 20:57 09/24/17 05:53 09/25/17 06:20 Reticulocyte Count 1.8 % Absolute Reticulocyte Count 45.8 MIL/L White Blood Count 4.0 TH/MM3 5.8 TH/MM3 Red Blood Count 2.54 MIL/MM3 2.73 MIL/MM3 Hemoglobin 8.2 GM/DL 8.8 GM/DL Hematocrit 23.6 % 25.5 % Mean Corpuscular Volume 93.2 FL 93.3 FL Mean Corpuscular Hemoglobin 32.2 PG 32.1 PG Mean Corpuscular Hemoglobin Concent 34.5 % 34.4 % Red Cell Distribution Width 18.6 % 18.6 % Platelet Count 46 TH/MM3 68 TH/MM3 Mean Platelet Volume 10.5 FL 11.4 FL Neutrophils (%) (Auto) 82.5 % Lymphocytes (%) (Auto) 6.2 % Monocytes (%) (Auto) 8.3 % Eosinophils (%) (Auto) 2.2 % Basophils (%) (Auto) 0.8 % Neutrophils # (Auto) 4.8 TH/MM3 Lymphocytes # (Auto) 0.4 TH/MM3 Monocytes # (Auto) 0.5 TH/MM3 Eosinophils # (Auto) 0.1 TH/MM3 Basophils # (Auto) 0.0 TH/MM3 CBC Comment AUTO DIFF Differential Comment AUTO DIFF CONFIRMED Platelet Estimate LOW Platelet Morphology Comment NORMAL Ovalocytes 1+ Helmet Cells OCC Haptoglobin LESS THAN 10 MG/DL Laboratory Tests Test 09/24/17 05:53 09/25/17 06:20 Blood Urea Nitrogen 29 MG/DL 24 MG/DL Creatinine 1.10 MG/DL 1.15 MG/DL Random Glucose 140 MG/DL 149 MG/DL Calcium Level 8.2 MG/DL 8.3 MG/DL Sodium Level 138 MEQ/L 137 MEQ/L Potassium Level 3.6 MEQ/L 3.2 MEQ/L Chloride Level 107 MEQ/L 102 MEQ/L Carbon Dioxide Level 24.1 MEQ/L 28.6 MEQ/L Anion Gap 7 MEQ/L 6 MEQ/L Estimat Glomerular Filtration Rate 63 ML/MIN 60 ML/MIN Lactate Dehydrogenase 325 U/L 329 U/L Total Protein 6.4 GM/DL Albumin 2.7 GM/DL Alkaline Phosphatase 197 U/L Aspartate Amino Transf (AST/SGOT) 88 U/L Alanine Aminotransferase (ALT/SGPT) 20 U/L Total Bilirubin 1.7 MG/DL Direct Bilirubin 0.8 MG/DL Indirect Bilirubin 0.9 MG/DL Imaging Last Impressions Chest X-Ray 09/19/17 0538 Signed Impressions: Service Date/Time: Tuesday, September 19, 2017 06:10 - CONCLUSION: No infiltrates seen. Matt Bhatti MD Abdomen/Pelvis CT 09/19/17 0000 Signed Impressions: Service Date/Time: Tuesday, September 19, 2017 07:14 - CONCLUSION: 1. Bilateral renal calculi and simple cysts. 2. No evidence of obstructive uropathy. 3. Prostatomegaly. 4. Uncomplicated diverticulosis. 5. No acute process. Washington Parra MD Physical Exam GENERAL: This is a well-nourished, well-developed patient, in no apparent distress. SKIN: No rashes, ecchymoses or lesions. Cool and dry. HEAD: Atraumatic. Normocephalic. No temporal or scalp tenderness. Old bruise on his forehead with no e.o infection. Nose with no erythema no bleeding noted. EYES: Pupils equal round and reactive. Extraocular motions intact. No scleral icterus. No injection or drainage. ENT: Nose without bleeding, purulent drainage or septal hematoma. Throat without erythema, tonsillar hypertrophy or exudate. Uvula midline. Airway patent. NECK: Trachea midline. Supple, nontender, no meningeal signs. CARDIOVASCULAR: HS audible. RESPIRATORY: Clear to auscultation. Breath sounds equal bilaterally. GASTROINTESTINAL: Abdomen soft, non-tender, nondistended. MUSCULOSKELETAL: Extremities without clubbing, cyanosis, or edema. No joint tenderness, effusion, or edema noted. No calf tenderness. Negative Homans sign bilaterally.There are old scabs on bilateral knees but no effusion or signs of infection at present time. Prior temporary transvenous pacemaker site with no e.o infection. Groin TAVR access sites with no e.o infection. Bruises notes on abdomen. NEUROLOGICAL: Awake and alert. Non focal exam Psych cooperative. IV line sites with no e.o infection. Assessment & Plan Remarks Severe Sepsis present on admission Gram positive bacteremia ? MSSA ID pending. PSAE UTI. H/o catheterization and bleeding from difficult lópez Rule out endocarditis Recent TAVR bioprosthetic valve. Recent h/o temporary pacer placement during TAVR. h/o fall post TAVR with bruising of bilateral knees. Acute renal failure: likely sepsis related. Pancytopenia: likely sepsis, TAVE related. Unlikely HIT or medication related. Recs: Continue Ancef IV needed for home infusion as well. Continue Cefepime IV while in hospital for PSAE UTI. Post hospital infusion orders in chart. amanda CM Amanda Callejas: waiting on [id number] test. amanda patient and plan about treating with IV antibiotics for 6 weeks as concern that the recent TAVR may get infected due to the high grade bacteremia. amanda patient and family will need to complete PSAE UTI Rx in hospital for few more days. to cover for me 09/26/2017 to 09/28/2017. Destiny Blanton MD Sep 25, 2017 13:12
--- NOTE | 2017-09-25 13:55 | HHI.PR ---
Subjective Remarks Complains of a scrotal swelling. The patient was able to urinate without difficulty. Denies hematuria. Patient is afebrile. There is no evidence of active bleeding. Denies chest pain and shortness of breath. The patient states he wants to go home. Objective Vitals Vital Signs Date Time Temp Pulse Resp B/P (MAP) Pulse Ox O2 Delivery O2 Flow Rate FiO2 09/25/17 11:07 97.9 91 20 118/56 (76) 99 09/25/17 08:27 97.7 90 20 148/69 (95) 100 09/25/17 04:11 84 09/25/17 04:00 97.9 92 18 129/60 (83) 98 09/25/17 00:00 98.1 90 18 131/60 (83) 97 09/24/17 20:22 99.1 95 20 131/69 (89) 100 09/24/17 20:03 92 09/24/17 18:13 88 09/24/17 16:24 98.0 86 19 118/61 (80) 99 I/O 09/24/17 09/24/17 09/24/17 09/25/17 09/25/17 09/25/17 07:00 15:00 23:00 07:00 15:00 23:00 Intake Total 200 ml 480 ml 150 ml 50 ml Output Total 1400 ml 2300 ml 1465 ml 800 ml 250 ml Balance -1200 ml -1820 ml -1465 ml -650 ml -200 ml Intake Oral 480 ml IV Total 200 ml 150 ml 50 ml Output Urine Total 1400 ml 2300 ml 1465 ml 800 ml 250 ml Bladder Scan Volume Amount 86 ml # Voids 1 # Bowel Movements 1 Result Diagram: 09/25/17 0620 09/25/17 06 Imaging Last Impressions Upper Extremity Ultrasound 09/24/17 0000 Signed Impressions: Service Date/Time: Sunday, September 24, 2017 11:04 - CONCLUSION: Negative for deep venous thrombosis. Oneil Stafford MD FACR Lower Extremity Ultrasound 09/24/17 0000 Signed Impressions: Service Date/Time: Sunday, September 24, 2017 10:50 - CONCLUSION: 1. No DVT identified within either lower extremity. Mahamed Stafford MD Chest X-Ray 09/24/17 0000 Signed Impressions: Service Date/Time: Sunday, September 24, 2017 16:59 - CONCLUSION: 1. PICC line in good position. 2. Regional loss of bone mineralization involving the right humeral head. See previous reports for discussion. Matt Castañeda Jr., MD Abdomen/Pelvis CT 09/19/17 0000 Signed Impressions: Service Date/Time: Tuesday, September 19, 2017 07:14 - CONCLUSION: 1. Bilateral renal calculi and simple cysts. 2. No evidence of obstructive uropathy. 3. Prostatomegaly. 4. Uncomplicated diverticulosis. 5. No acute process. Washington Parra MD Objective Remarks AAOx3, NAD sitting in chair Bilateral bibasilar crackles, no wheezing or rhonchi S1S2 (+) RRR, no MRG abdomen is soft, NT, ND Edematous non tender upper left extremity. some ecchymotic lesions noted in the lateral forearms. No other rash or petechiae noted. There is +1 edema in bilateral extremities. Procedures None Medications and IVs Current Medications Medications (Trade) Dose Ordered Sig/Nella Route Start Time Stop Time Status Last Admin (Zyloprim) 100 mg BID PO 09/19/17 12:00 09/25/17 07:38 (Lipitor) 40 mg HS PO 09/19/17 21:00 09/24/17 21:47 (Vitamin D3) 1,000 units DAILY PO 09/19/17 12:00 09/25/17 07:37 (Plavix) 75 mg DAILY PO 09/19/17 13:00 Future Hold (Proscar) 5 mg DAILY PO 09/19/17 12:00 09/25/17 07:37 (Prinivil) 10 mg DAILY PO 09/19/17 12:00 Future Hold 09/21/17 08:14 (Mag-Ox) 400 mg BID PO 09/19/17 21:00 09/25/17 07:38 (Lopressor) 12.5 mg Q12H PO 09/19/17 11:00 09/25/17 11:03 (KCl) 20 meq DAILY PO 09/19/17 13:00 09/25/17 07:38 (Vitamin B6) 100 mg DAILY PO 09/19/17 13:00 09/25/17 07:38 (Tylenol) 650 mg Q4H PRN PO 09/19/17 09:00 (Zofran Inj) 4 mg Q6H PRN IVP 09/19/17 09:00 (Reglan Inj) 5 mg Q6H PRN IV PUSH 09/19/17 09:00 (Tylenol) 650 mg Q6H PRN PO 09/19/17 09:00 (Percocet 5-325 Mg) 1 tab Q6H PRN PO 09/19/17 09:00 (Percocet 10-325 Mg) 1 tab Q6H PRN PO 09/19/17 09:00 (Morphine Inj) 2 mg Q3H PRN IV PUSH 09/19/17 09:00 (Morphine Inj) 4 mg Q3H PRN IV PUSH 09/19/17 09:00 (Narcan Inj) 0.4 mg UNSCH PRN IV PUSH 09/19/17 09:00 (Ora-Colace) 1 tab BID PO 09/19/17 11:00 09/25/17 07:37 (Milk Of Magnesia Liq) 30 ml Q12H PRN PO 09/19/17 09:00 09/25/17 10:18 (Senokot) 17.2 mg Q12H PRN PO 09/19/17 09:00 09/25/17 10:18 (Dulcolax Supp) 10 mg DAILY PRN RECTAL 09/19/17 09:00 (Lactulose Liq) 30 ml DAILY PRN PO 09/19/17 09:00 09/25/17 10:18 (NS Flush) 2 ml UNSCH PRN IV FLUSH 09/19/17 09:00 (NS Flush) 2 ml BID IV FLUSH 09/19/17 09:00 09/25/17 07:38 (NovoLOG SUPPLEMENTAL SCALE) 1 ACHS SLIDING SCALE SQ 09/19/17 12:00 09/25/17 11:35 (D50w (Vial) Inj) 50 ml UNSCH PRN IV PUSH 09/19/17 09:00 (Glucagon Inj) 1 mg UNSCH PRN OTHER 09/19/17 09:00 (Pill Splitter) 1 ea UNSCH PRN OTHER 09/19/17 13:45 (Flomax) 0.4 mg DAILY PO 09/19/17 16:45 09/25/17 07:37 Cefazolin Sodium/ Dextrose 50 ml @ 100 mls/hr Q8H IV 09/20/17 15:00 09/25/17 06:17 (Xanax) 0.125 mg Q4H PRN PO 09/21/17 14:00 09/24/17 21:52 (Coumadin) 4 mg DAILY@16 PO 09/21/17 16:00 Future Hold 09/22/17 15:47 (Ecotrin Ec) 81 mg DAILY PO 09/22/17 09:00 09/25/17 07:38 (Lasix) 40 mg BID@18 PO 09/23/17 18:00 09/25/17 07:38 Pharmacy Profile Note 0 ml @ 0 mls/hr UNSCH OTHER 09/23/17 13:00 Cefepime HCl 2000 mg/Sodium Chloride 100 ml @ 200 mls/hr Q12H IV 09/24/17 20:00 09/25/17 07:37 (NS Flush) See Protocol DAILY IV FLUSH 09/25/17 09:00 09/25/17 07:39 (NS Flush) See Protocol UNSCH PRN IV FLUSH 09/24/17 15:45 (Heparin Central Flush) See Protocol DAILY IV FLUSH 09/25/17 09:00 09/25/17 07:39 (Heparin Central Flush) See Protocol UNSCH PRN IV FLUSH 09/24/17 15:45 (NS Flush) UNSCH PRN IV FLUSH 09/24/17 15:45 (Lotrimin 1% Cream) 1 applic Q12HR TOPICAL 09/25/17 10:30 09/25/17 11:02 Urinary Catheter: No Vascular Central Line Catheter: No A/P Problem List: (1) Anemia ICD Code: D64.9 - Anemia, unspecified (2) Thrombocytopenia ICD Code: D69.6 - Thrombocytopenia, unspecified (3) MILLI (acute kidney injury) ICD Code: N17.9 - Acute kidney failure, unspecified (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 - Presence of prosthetic heart valve (5) Elevated troponin ICD Code: R74.8 - Abnormal levels of other serum enzymes (6) Diabetes mellitus ICD Code: E11.9 - Type 2 diabetes mellitus without complications (7) Anxiety ICD Code: F41.9 - Anxiety disorder, unspecified (8) Sepsis ICD Code: A41.9 - Sepsis, unspecified organism Status: Acute (9) Bacteremia ICD Code: R78.81 - Bacteremia (10) Hematuria ICD Code: R31.9 - Hematuria, unspecified (11) Atrial fibrillation ICD Code: I48.91 - Atrial fibrillation Status: Acute Assessment and Plan Severe sepsis/ Bacteremia Blood cultures growing staph aureus, urine culture growing pseudomonas. ID consult appreciated. Limited echo without evidence of vegetation. JULIO 09/22 was negative for endocarditis. - continue cefazolin and Cefepime per ID. - follow repeat blood cultures. - IVFs. - PT/ OT. 09/24 patient to complete treatment for Pseudomonas UTI and will be discharged on IV cefazolin once this has been completed. 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 He is on chronic anticoagulation with Coumadin, Plavix and aspirin. Urology consult appreciated. - continue Weber per urology. - hold anticoagulation. - follow CBC and transfuse as needed. - 09/23 Hematuria has resolved - will Dc Weber catheter and start voiding trials if ok with urology. 09/24 urology recommends discharging with Weber, however patient wants to do voiding trials. I will DC Weber and voiding trials. Will check bladder scan for postvoid residual volume. 09/25 Weber catheter discontinued, patient is voiding well. Thrombocytopenia Unsure of etiology. It appears he was exposed to heparin in August. 09/23 hematology consultation recommendations appreciated. Doubt patient in DIC since clinically looks better. Fibrinogen is within normal range at 341. Platelets are ending up. Suspect cytopenia secondary to combination of sepsis along with low bone marrow reserve. Continue to monitor platelets. 09/24 discussed the case with Dr. Ta. She suspects there is possibly some degree of hemolysis since haptoglobin is less than 10. Peripheral smear was requested. Peripheral smear shows severe normochromic normocytic anemia, moderate thrombocytopenia and occasional fragmented red blood cells with the possibility of a low-grade microangiopathic hemolytic process could not be excluded. Follow-up hematology recommendations. Platelets are stable at 46, 000. 09/25 Discussed case with hematology, concern for MAHA vs TTP. However platelets improving. Continue to monitor platelets. Acute renal failure Appears to be secondary to sepsis, dehydration. Resolving with fluids. 09/23 Acute kidney injury likely due to prerenal azotemia due to sepsis and dehydration. Now resolved. DC IV fluids. Recent TAVR for aortic valve August 27. Cardiology consult appreciated. JULIO noted. - continue cardiac regimen. - follow up with cardiology. Elevated troponin Troponin peaked at 0.13. Likely s/t sepsis. - cardiology following. - telemetry. Diabetes mellitus Well controlled at this time. - continue on sliding scale coverage along with diabetic diet. Anxiety The patient endorses anxiety. - Low-dose of Xanax as needed. Supratherapeutic INR. Coumadin. INR went up to 2.7. Continue to monitor PT/INR daily. We'll consult pharmacy to help with dosing. Atrial fibrillation. On chronic anticoagulation with Coumadin now on hold secondary to hematuria and supratherapeutic INR. Continue telemetry monitoring. Left upper extremity edema. DVT ruled out with negative lower extremity Dopplers ultrasound. Chest congestion for/cough Patient complaining of chest congestion and cough. Chest x-ray ordered. 09/24 chest x-ray shows clear lungs without infiltrates. Continue Lasix 40 mg p.o. twice daily. Bilateral extremities edema. Due to fluid overload. Continue oral Lasix. Daily weights. DVT prophylaxis: Supratherapeutic INR Discharge Planning Pending ID clearance and hematology clearance. Problem Qualifiers (1) Sepsis: Qualified Codes: A41.9 - Sepsis, unspecified organism Shyam Jeffrey MD Sep 25, 2017 13:55
[2017-09-25] MEDS: ATORVASTATIN 40 MG TAB PO SCH (21:33)
[2017-09-25] MEDS: ALPRAZolam 0.25 MG TAB PO PRN (21:33)
[2017-09-26] VITALS (7 sets, daily range): BP systolic 119–138; BP diastolic 58–69; PULSE 81–91; RESP 18; TEMP 97.5–98.3; O2SAT 95–99
[2017-09-26] MEDS: ceFAZolin 2 GM PREMIX 50 ML IV SCH ×2 (06:47→14:52)
[2017-09-26 07:16] LABS: AUTOMATED NEUTROPHIL # 4.3 TH/MM3 (1.8-7.7); BASOPHIL # 0.1 TH/MM3 (0-0.2); BASOPHIL % 1.1 % (0.0-2.0); EOSINOPHIL # 0.1 TH/MM3 (0-0.4); EOSINOPHIL % 2.5 % (0.0-4.0); HEMATOCRIT 25.5 % (39.0-51.0); HEMOGLOBIN 8.7 GM/DL (13.0-17.0); LYMPH % 6.9 % (9.0-44.0); LYMPHOCYTE # 0.4 TH/MM3 (1.0-4.8); MEAN CELL VOLUME 93.7 FL (80.0-100.0); MEAN CORPUSCULAR HGB CONC 34.1 % (32.0-36.0); MEAN PLATELET VOLUME 10.5 FL (7.0-11.0); MONO % 8.3 % (0.0-8.0); MONOCYTE # 0.4 TH/MM3 (0-0.9); NEUT % 81.2 % (16.0-70.0); PLATELET COUNT 72 TH/MM3 (150-450); RED BLOOD COUNT 2.72 MIL/MM3 (4.50-5.90); RED CELL DISTRIBUTION WIDTH 19.2 % (11.6-17.2); WHITE BLOOD COUNT 5.3 TH/MM3 (4.0-11.0)
[2017-09-26 07:27] LABS: INTERNATIONAL NORMALIZED RATIO 2.4 RATIO; PROTHROMBIN TIME - PATIENT 23.8 SEC (9.8-11.6)
[2017-09-26 07:54] LABS: BICARBONATE 31.3 MEQ/L (21.0-32.0); CALCIUM 8.4 MG/DL (8.5-10.1); CREATININE 1.19 MG/DL (0.60-1.30)
[2017-09-26] MEDS: CEFEPIME INJ 2,000 MG in SODIUM CHLORIDE 0.9% INJ 100 ML IV SCH (08:10)
[2017-09-26] MEDS: FINASTERIDE 5 MG TAB PO SCH (08:11)
[2017-09-26] MEDS: MAGNESIUM OXIDE 400 MG TAB PO SCH (08:11)
[2017-09-26] MEDS: POTASSIUM CHLORIDE 20 MEQ CONTROLLED RELEASE TAB PO SCH (08:11)
[2017-09-26] MEDS: ASPIRIN EC 81 MG TABEC PO SCH (08:11)
[2017-09-26] MEDS: PYRIDOXINE HCL 50 MG TAB PO SCH (08:12)
[2017-09-26] MEDS: ALLOPURINOL 100 MG TAB PO SCH (08:12)
[2017-09-26] MEDS: FUROSEMIDE 40 MG TAB PO SCH ×2 (08:12→17:00)
[2017-09-26] MEDS: DOCUSATE SODIUM 50 MG/SENNA 8.6 MG TAB PO SCH (08:12)
[2017-09-26] MEDS: CLOTRIMAZOLE 1% CREAM 15 GM TOPICAL SCH (08:12)
[2017-09-26] MEDS: CHOLECALCIFEROL (VIT D3) 1000 UNIT TAB PO SCH (08:12)
[2017-09-26] MEDS: TAMSULOSIN HCL 0.4 MG CAP PO SCH (08:35)
[2017-09-26] MEDS: INSULIN ASPART SUPPLEMENTAL SCALE SQ SCH ×3 (08:35→17:00)
[2017-09-26] MEDS: SODIUM CHLORIDE 0.9% FLUSH 10 ML FLUSH IV FLUSH SCH ×2 (09:00)
[2017-09-26] MEDS ORDERED: ACYCLOVIR 5% OINT 5 APPLIC/5 GM TUBE TOPICAL SCH (10:00)
[2017-09-26] MEDS: ACYCLOVIR 5% OINT 15 APPLIC/15 GM TUBE TOPICAL SCH ×2 (11:05→13:50)
[2017-09-26] MEDS: METOPROLOL TARTRATE 25 MG TAB PO SCH (11:06)
--- NOTE | 2017-09-26 12:52 | PD.ONC.PN ---
Subjective Subjective Remarks Afebrile overnight. Patient resting in room. "Can I go home?" No complaints. Objective Data Date Time Temp Pulse Resp B/P (MAP) Pulse Ox O2 Delivery O2 Flow Rate FiO2 09/26/17 09:37 90 09/26/17 08:00 98.2 91 18 128/60 (82) 98 09/26/17 04:56 98.0 86 18 138/63 (88) 95 09/26/17 00:20 98.3 89 18 126/58 (80) 99 09/26/17 00:00 81 09/25/17 20:22 98.0 91 18 134/60 (84) 99 09/25/17 20:00 88 09/25/17 15:55 98.8 84 20 125/62 (83) 100 09/26/17 09/26/17 09/26/17 07:00 15:00 23:00 Output Total 1900 ml Balance -1900 ml Result Diagram: 09/26/17 0640 09/26/17 0640 Laboratory Results Laboratory Tests Test 09/26/17 06:40 White Blood Count 5.3 TH/MM3 Red Blood Count 2.72 MIL/MM3 Hemoglobin 8.7 GM/DL Hematocrit 25.5 % Mean Corpuscular Volume 93.7 FL Mean Corpuscular Hemoglobin 32.0 PG Mean Corpuscular Hemoglobin Concent 34.1 % Red Cell Distribution Width 19.2 % Platelet Count 72 TH/MM3 Mean Platelet Volume 10.5 FL Neutrophils (%) (Auto) 81.2 % Lymphocytes (%) (Auto) 6.9 % Monocytes (%) (Auto) 8.3 % Eosinophils (%) (Auto) 2.5 % Basophils (%) (Auto) 1.1 % Neutrophils # (Auto) 4.3 TH/MM3 Lymphocytes # (Auto) 0.4 TH/MM3 Monocytes # (Auto) 0.4 TH/MM3 Eosinophils # (Auto) 0.1 TH/MM3 Basophils # (Auto) 0.1 TH/MM3 CBC Comment AUTO DIFF Differential Comment AUTO DIFF CONFIRMED Platelet Estimate LOW Platelet Morphology Comment NORMAL Prothrombin Time 23.8 SEC Prothromb Time International Ratio 2.4 RATIO Blood Urea Nitrogen 20 MG/DL Creatinine 1.19 MG/DL Random Glucose 138 MG/DL Calcium Level 8.4 MG/DL Lactate Dehydrogenase 334 U/L Sodium Level 137 MEQ/L Potassium Level 3.3 MEQ/L Chloride Level 99 MEQ/L Carbon Dioxide Level 31.3 MEQ/L Anion Gap 7 MEQ/L Estimat Glomerular Filtration Rate 58 ML/MIN Administered Medications Medications (Trade) Dose Ordered Sig/Nella Route PRN Reason Start Time Stop Time Status Last Admin Dose Admin Allopurinol (Zyloprim) 100 mg BID PO 09/19/17 12:00 09/26/17 08:12 Atorvastatin Calcium (Lipitor) 40 mg HS PO 09/19/17 21:00 09/25/17 21:33 Cholecalciferol (Vitamin D3) 1,000 units DAILY PO 09/19/17 12:00 09/26/17 08:12 Finasteride (Proscar) 5 mg DAILY PO 09/19/17 12:00 09/26/17 08:11 Lisinopril (Prinivil) 10 mg DAILY PO 09/19/17 12:00 Future Hold 09/21/17 08:14 Magnesium Oxide (Mag-Ox) 400 mg BID PO 09/19/17 21:00 09/26/17 08:11 Metoprolol Tartrate (Lopressor) 12.5 mg Q12H PO 09/19/17 11:00 09/26/17 11:06 Potassium Chloride (KCl) 20 meq DAILY PO 09/19/17 13:00 09/26/17 08:11 Pyridoxine HCl (Vitamin B6) 100 mg DAILY PO 09/19/17 13:00 09/26/17 08:12 Senna/Docusate Sodium (Ora-Colace) 1 tab BID PO 09/19/17 11:00 09/26/17 08:12 Magnesium Hydroxide (Milk Of Magnesia Liq) 30 ml Q12H PRN PO Mild constipation 09/19/17 09:00 09/25/17 10:18 Sennosides (Senokot) 17.2 mg Q12H PRN PO Moderate constipation 09/19/17 09:00 09/25/17 10:18 Lactulose (Lactulose Liq) 30 ml DAILY PRN PO SEVERE CONSITIPATION 09/19/17 09:00 09/25/17 10:18 Sodium Chloride (NS Flush) 2 ml BID IV FLUSH 09/19/17 09:00 09/25/17 21:32 Insulin Aspart (NovoLOG SUPPLEMENTAL SCALE) 1 ACHS SLIDING SCALE SQ 09/19/17 12:00 09/26/17 12:04 Tamsulosin HCl (Flomax) 0.4 mg DAILY PO 09/19/17 16:45 09/26/17 08:35 Cefazolin Sodium/ Dextrose 50 ml @ 100 mls/hr Q8H IV 09/20/17 15:00 09/26/17 06:47 Alprazolam (Xanax) 0.125 mg Q4H PRN PO anxiety 09/21/17 14:00 09/25/17 21:33 Aspirin (Ecotrin Ec) 81 mg DAILY PO 09/22/17 09:00 09/26/17 08:11 Furosemide (Lasix) 40 mg BID@,18 PO 09/23/17 18:00 09/26/17 08:12 Cefepime HCl 2000 mg/Sodium Chloride 100 ml @ 200 mls/hr Q12H IV 09/24/17 20:00 09/26/17 08:10 Sodium Chloride (NS Flush) See Protocol DAILY IV FLUSH 09/25/17 09:00 09/25/17 07:39 Heparin Sodium (Porcine) (Heparin Central Flush) See Protocol DAILY IV FLUSH 09/25/17 09:00 09/25/17 07:39 Clotrimazole (Lotrimin 1% Cream) 1 applic Q12HR TOPICAL 09/25/17 10:30 09/26/17 08:12 Acyclovir (Zovirax 5% Oint (15 Gm)) 1 applic 5 TIMES A DAY TOPICAL 09/26/17 10:00 09/26/17 11:05 Objective Remarks GENERAL: Elderly male, lying supine in bed in [facility]. SKIN: Warm and dry. HEAD: Normocephalic. EYES: No injection or drainage. NECK: Supple, trachea midline. CARDIOVASCULAR: Regular rate and rhythm RESPIRATORY: Breath sounds equal bilaterally. No accessory muscle use. GASTROINTESTINAL: Abdomen soft, non-tender, nondistended. EXTREMITIES: No cyanosis. NEUROLOGICAL: awake, alert. normal speech. moving extremities. no obvious focal deficit. Assessment/Plan Problem List: (1) Normocytic anemia ICD Codes: D64.9 - Anemia, unspecified Plan: --TIBC, % saturation, serum iron all low. ferritin WNL --LDH mildly elevated, haptoglobin low, indirect bilirubin not elevated. hgb also shari slightly today, which argues against hemolysis. --B12 elevated (2) Thrombocytopenia ICD Codes: D69.6 - Thrombocytopenia, unspecified Plan: --OOPYEH07 52%, platelets improving. --may be some degree of consumption from prosthetic valve/TAVR, other differential includes DIC/sepsis --LDH mildly elevated and haptoglobin low. --HIT negative. --previous patient of Dr. Shah, now sees Dr. Cee --cannot rule of medication effect. --Suspect that sepsis and antibiotic use in the setting of poor bone marrow reserve is contributing to new pancytopenia. --no splenomegaly Assessment 87y/o male admitted on 09/19 with urosepsis. Hematology following for anemia + thrombocytopenia. history of congestive heart failure s/p TAVR 08/27 chronic atrial fibrillation on warfarin, history of neuroendocrine cancer, coronary artery disease, hyperlipidemia, hypertension, BPH, GERD. h/o cardiac stents, cataracts with lens implants, prostate surgery, tonsillectomy, prostatectomy, nasal polyps. Plan 1. patient clear for discharge. 2. patient will need to follow up in the clinic on Friday. Patient and state they will call and make an appointment for Friday with CBC. Attending Statement The exam, history, and the medical decision-making described in the above note were completed with the assistance of the mid-level provider. I reviewed and agree with the findings presented. I attest that I had a [id number] encounter with the patient on the same day, and personally performed and documented my assessment and findings in the medical record. patient seen around 5:20 pm eager to go home ADAMTS 13 levels were not low and not consistent with TTP low grade hemolysis due to artificial heart valve PLTs stable asked patient to see me next week in clinic. He will call on Friday to make an appointment ok to d/c home Kalli Mcnair Sep 26, 2017 12:51 Adan Cee MD Sep 26, 2017 22:17
--- NOTE | 2017-09-26 16:19 | HHI.PR ---
Subjective Remarks Patient wants to go home. Has been set up for home health care with home antibiotics Ancef 2 g IV every 8 for another month Discussed with case management Discussed with infectious disease Discussed with the RN Discussed with patient and his Really wants to go home We will discharge to home today Objective Vitals Vital Signs Date Time Temp Pulse Resp B/P (MAP) Pulse Ox O2 Delivery O2 Flow Rate FiO2 09/26/17 12:00 97.5 82 18 119/69 (86) 98 09/26/17 09:37 90 09/26/17 08:00 98.2 91 18 128/60 (82) 98 09/26/17 04:56 98.0 86 18 138/63 (88) 95 09/26/17 00:20 98.3 89 18 126/58 (80) 99 09/26/17 00:00 81 09/25/17 20:22 98.0 91 18 134/60 (84) 99 09/25/17 20:00 88 I/O 09/25/17 09/25/17 09/25/17 09/26/17 09/26/17 09/26/17 07:00 15:00 23:00 07:00 15:00 23:00 Intake Total 150 ml 50 ml 720 ml Output Total 800 ml 250 ml 1900 ml 125 ml Balance -650 ml -200 ml 720 ml -1900 ml -125 ml Intake Oral 720 ml IV Total 150 ml 50 ml Output Urine Total 800 ml 250 ml 1900 ml 125 ml # Voids 1 5 1 # Bowel Movements 1 2 Result Diagram: 09/26/17 0640 09/26/17 0640 Other Results Laboratory Tests Test 09/23/17 20:57 09/24/17 05:53 09/25/17 06:20 09/26/17 06:40 Reticulocyte Count 1.8 % Absolute Reticulocyte Count 45.8 MIL/L White Blood Count 4.0 TH/MM3 5.8 TH/MM3 5.3 TH/MM3 Red Blood Count 2.54 MIL/MM3 2.73 MIL/MM3 2.72 MIL/MM3 Hemoglobin 8.2 GM/DL 8.8 GM/DL 8.7 GM/DL Hematocrit 23.6 % 25.5 % 25.5 % Mean Corpuscular Volume 93.2 FL 93.3 FL 93.7 FL Mean Corpuscular Hemoglobin 32.2 PG 32.1 PG 32.0 PG Mean Corpuscular Hemoglobin Concent 34.5 % 34.4 % 34.1 % Red Cell Distribution Width 18.6 % 18.6 % 19.2 % Platelet Count 46 TH/MM3 68 TH/MM3 72 TH/MM3 Mean Platelet Volume 10.5 FL 11.4 FL 10.5 FL Prothrombin Time 26.7 SEC 28.2 SEC 23.8 SEC Prothromb Time International Ratio 2.6 RATIO 2.8 RATIO 2.4 RATIO Fibrinogen 368 mg/dL [id number] Activity 52 [id number] Inhibitor BEU Blood Urea Nitrogen 29 MG/DL 24 MG/DL 20 MG/DL Creatinine 1.10 MG/DL 1.15 MG/DL 1.19 MG/DL Random Glucose 140 MG/DL 149 MG/DL 138 MG/DL Calcium Level 8.2 MG/DL 8.3 MG/DL 8.4 MG/DL Sodium Level 138 MEQ/L 137 MEQ/L 137 MEQ/L Potassium Level 3.6 MEQ/L 3.2 MEQ/L 3.3 MEQ/L Chloride Level 107 MEQ/L 102 MEQ/L 99 MEQ/L Carbon Dioxide Level 24.1 MEQ/L 28.6 MEQ/L 31.3 MEQ/L Anion Gap 7 MEQ/L 6 MEQ/L 7 MEQ/L Estimat Glomerular Filtration Rate 63 ML/MIN 60 ML/MIN 58 ML/MIN Lactate Dehydrogenase 325 U/L 329 U/L 334 U/L Neutrophils (%) (Auto) 82.5 % 81.2 % Lymphocytes (%) (Auto) 6.2 % 6.9 % Monocytes (%) (Auto) 8.3 % 8.3 % Eosinophils (%) (Auto) 2.2 % 2.5 % Basophils (%) (Auto) 0.8 % 1.1 % Neutrophils # (Auto) 4.8 TH/MM3 4.3 TH/MM3 Lymphocytes # (Auto) 0.4 TH/MM3 0.4 TH/MM3 Monocytes # (Auto) 0.5 TH/MM3 0.4 TH/MM3 Eosinophils # (Auto) 0.1 TH/MM3 0.1 TH/MM3 Basophils # (Auto) 0.0 TH/MM3 0.1 TH/MM3 CBC Comment AUTO DIFF AUTO DIFF Differential Comment AUTO DIFF CONFIRMED AUTO DIFF CONFIRMED Platelet Estimate LOW LOW Platelet Morphology Comment NORMAL NORMAL Ovalocytes 1+ Helmet Cells OCC Haptoglobin LESS THAN 10 MG/DL Total Protein 6.4 GM/DL Albumin 2.7 GM/DL Alkaline Phosphatase 197 U/L Aspartate Amino Transf (AST/SGOT) 88 U/L Alanine Aminotransferase (ALT/SGPT) 20 U/L Total Bilirubin 1.7 MG/DL Direct Bilirubin 0.8 MG/DL Indirect Bilirubin 0.9 MG/DL Imaging Last Impressions Upper Extremity Ultrasound 09/24/17 0000 Signed Impressions: Service Date/Time: Sunday, September 24, 2017 11:04 - CONCLUSION: Negative for deep venous thrombosis. Oneil Stafford MD FACR Lower Extremity Ultrasound 09/24/17 0000 Signed Impressions: Service Date/Time: Sunday, September 24, 2017 10:50 - CONCLUSION: 1. No DVT identified within either lower extremity. Mahamed Stafford MD Chest X-Ray 09/24/17 0000 Signed Impressions: Service Date/Time: Sunday, September 24, 2017 16:59 - CONCLUSION: 1. PICC line in good position. 2. Regional loss of bone mineralization involving the right humeral head. See previous reports for discussion. Matt Castañeda Jr., MD Abdomen/Pelvis CT 09/19/17 Signed Impressions: Service Date/Time: Tuesday, September 19, 2017 07:14 - CONCLUSION: 1. Bilateral renal calculi and simple cysts. 2. No evidence of obstructive uropathy. 3. Prostatomegaly. 4. Uncomplicated diverticulosis. 5. No acute process. Washington Parra MD Objective Remarks GENERAL: Awake alert oriented talkative and cooperative SKIN: Warm and dry. Multiple herpetic lesions around his mouth HEAD: Atraumatic. Normocephalic. EYES: Pupils equal and round. No scleral icterus. No injection or drainage. Extraocular muscles intact ENT: No nasal bleeding or discharge. Mucous membranes pink and moist. Tongue is midline multiple lesions around his mouth NECK: Trachea midline. No JVD. Supple CARDIOVASCULAR: Regular rate and rhythm. S1-S2 no S3 or S4 RESPIRATORY: No accessory muscle use. Clear to auscultation. Breath sounds equal bilaterally. GASTROINTESTINAL: Abdomen soft, non-tender, nondistended. Hepatic and splenic margins not palpable. MUSCULOSKELETAL: Extremities without clubbing, cyanosis, or edema. No obvious deformities. NEUROLOGICAL: Awake and alert. No obvious cranial nerve deficits. Motor grossly within normal limits. Five out of 5 muscle strength in the arms and legs. Normal speech. PSYCHIATRIC: Appropriate mood and affect; insight and judgment normal. Procedures None Medications and IVs Current Medications Acetaminophen (Tylenol) 650 mg ONCE ONCE PO Last administered on 09/19/17 05: 54; Start 09/19/17 at 05:45; Stop 09/19/17 at 05:46; Status DC Ceftriaxone Sodium 1000 mg/ Sodium Chloride 100 ml @ 200 mls/hr ONCE ONCE IV Last administered on 09/19/17at 05:59; Start 09/19/17 at 06:00; Stop 09/19/17 at 06: 29; Status DC Sodium Chloride 1,000 ml @ 999 mls/hr BOLUS ONCE IV Last administered on at 08:29; Start 09/19/17 at 08:15; Stop 09/19/17 at 09:15; Status DC Allopurinol (Zyloprim) 100 mg BID PO Last administered on 09/26/17at 08:12; Start 09/19/17 at 12:00 Aspirin (Aspirin Chew) 81 mg DAILY CHEW ; Start 09/19/17 at 13:00; Stop 09/24/17 at 07:59; Status DC Atorvastatin Calcium (Lipitor) 40 mg HS PO Last administered on 09/25/17 21:33 ; Start 09/19/17 at 21:00 Cholecalciferol (Vitamin D3) 1,000 units DAILY PO Last administered on at 08:12; Start 09/19/17 at 12:00 Clopidogrel Bisulfate (Plavix) 75 mg DAILY PO ; Start 09/19/17 at 13:00; Status Future Hold Finasteride (Proscar) 5 mg DAILY PO Last administered on 09/26/17at 08:11; Start 09/19/17 at 12:00 Lisinopril (Prinivil) 10 mg DAILY PO Last administered on 09/21/17 08:14; Start 09/19/17 at 12:00; Status Future Hold Magnesium Oxide (Mag-Ox) 400 mg BID PO Last administered on 09/26/17at 08:11; Start 09/19/17 at 21:00 Metoprolol Tartrate (Lopressor) 12.5 mg Q12H PO Last administered on 09/26/17at 11:06; Start 09/19/17 at 11:00 Polyethylene Glycol (Miralax) 17 gm DAILY PRN PO CONSTIPATION; Start 09/19/17 at 09:00; Stop 09/19/17 at 12:26; Status DC Potassium Chloride (KCl) 20 meq DAILY PO Last administered on 09/26/17at 08:11; Start 09/19/17 at 13:00 Pyridoxine HCl (Vitamin B6) 100 mg DAILY PO Last administered on 09/26/17at 08:12 ; Start 09/19/17 at 13:00 Non-Formulary Medication 100 mg DAILY PO ; Start 09/19/17 at 09:00; Stop 09/19/17 at 12:13; Status DC Non-Formulary Medication 240 mg DAILY PO ; Start 09/19/17 at 09:00; Stop 09/19/17 at 12:25; Status DC Sodium Chloride 1,000 ml @ 75 mls/hr [id number] IV Last administered on 09/22/17at 03:20; Start 09/19/17 at 12:00; Stop 09/23/17 at 12:54; Status DC Sodium Chloride (NS Flush) 2 ml UNSCH PRN IV FLUSH FLUSH AFTER USING IV ACCESS ; Start 09/19/17 at 09:00; Stop 09/19/17 at 11:13; Status DC Sodium Chloride (NS Flush) 2 ml BID IV FLUSH ; Start 09/19/17 at 09:00; Stop 09/19 at 11:13; Status DC Acetaminophen (Tylenol) 650 mg Q4H PRN PO TEMP > 100.4; Start 09/19/17 at 09:00 Ondansetron HCl (Zofran Inj) 4 mg Q6H PRN IVP NAUSEA OR VOMITING; Start at 09:00 Metoclopramide HCl (Reglan Inj) 5 mg Q6H PRN IV PUSH NAUSEA OR VOMITING; Start 09/19/17 at 09:00 Acetaminophen (Tylenol) 650 mg Q6H PRN PO PAIN SCALE 1 TO 2; Start 09/19/17 at 09:00 Oxycodone/ Acetaminophen (Percocet 5-325 Mg) 1 tab Q6H PRN PO PAIN SCALE 3 TO 5; Start 09/19/17 at 09:00 Oxycodone/ Acetaminophen (Percocet 10-325 Mg) 1 tab Q6H PRN PO PAIN SCALE 6 TO 10; Start 09/19/17 at 09:00 Morphine Sulfate (Morphine Inj) 2 mg Q3H PRN IV PUSH Pain 3-5; if unable to take PO; Start 09/19/17 at 09:00 Morphine Sulfate (Morphine Inj) 4 mg Q3H PRN IV PUSH Pain 6-10;if unable to take PO; Start 09/19/17 at 09:00 Naloxone HCl (Narcan Inj) 0.4 mg UNSCH PRN IV PUSH SEE LABEL COMMENTS; Start at 09:00 Senna/Docusate Sodium (Ora-Colace) 1 tab BID PO Last administered on 09/26/17at 08:12; Start 09/19/17 at 11:00 Magnesium Hydroxide (Milk Of Magnesia Liq) 30 ml Q12H PRN PO Mild constipation Last administered on 09/25/17at 10:18; Start 09/19/17 at 09:00 Sennosides (Senokot) 17.2 mg Q12H PRN PO Moderate constipation Last administered on 09/25/17at 10:18; Start 09/19/17 at 09:00 Bisacodyl (Dulcolax Supp) 10 mg DAILY PRN RECTAL SEVERE CONSITIPATION; Start at 09:00 Lactulose (Lactulose Liq) 30 ml DAILY PRN PO SEVERE CONSITIPATION Last administered on 09/25/17at 10:18; Start 09/19/17 at 09:00 Sodium Chloride (NS Flush) 2 ml UNSCH PRN IV FLUSH FLUSH AFTER USING IV ACCESS ; Start 09/19/17 at 09:00 Sodium Chloride (NS Flush) 2 ml BID IV FLUSH Last administered on 09/25/17at 21: 32; Start 09/19/17 at 09:00 Vancomycin HCl 1000 mg/Sodium Chloride 250 ml @ 250 mls/hr ONCE ONCE IV ; Start 09/19/17 at 09:00; Stop 09/19/17 at 12:43; Status DC Pharmacy Profile Note 0 ml @ 0 mls/hr UNSCH OTHER ; Start 09/19/17 at 09:00; Stop 09/20/17 at 09:37; Status DC Ceftriaxone Sodium 1000 mg/ Sodium Chloride 100 ml @ 200 mls/hr Q24H IV Last administered on 09/20/17at 08:16; Start 09/20/17 at 08:00; Stop 09/20/17 at 14:39; Status DC Insulin Aspart (NovoLOG SUPPLEMENTAL SCALE) 1 ACHS SLIDING SCALE SQ Last administered on 09/26/17at 12:04; Start 09/19/17 at 12:00 Dextrose (D50w (Vial) Inj) 50 ml UNSCH PRN IV PUSH HYPOGLYCEMIA-SEE COMMENTS; Start 09/19/17 at 09:00 Glucagon (Glucagon Inj) 1 mg UNSCH PRN OTHER HYPOGLYCEMIA-SEE COMMENTS; Start 09/19/17 at 09:00 Sodium Chloride 1,000 ml @ 999 mls/hr BOLUS ONCE IV Last administered on at 12:15; Start 09/19/17 at 12:00; Stop 09/19/17 at 13:00; Status DC Aspirin (Aspirin Chew) 81 mg DAILY CHEW ; Start 09/19/17 at 13:00; Status Cancel Vancomycin HCl 1250 mg/Sodium Chloride 262.5 ml @ 250 mls/hr ONCE ONCE IV Last administered on 09/19/17at 13:47; Start 09/19/17 at 12:45; Stop 09/19/17 at 13: 47; Status DC Miscellaneous (Pill Splitter) 1 ea UNSCH PRN OTHER SEE LABEL COMMENTS; Start at 13:45 Tamsulosin HCl (Flomax) 0.4 mg DAILY PO Last administered on 09/26/17at 08:35; Start 09/19/17 at 16:45 Vancomycin HCl 1250 mg/Sodium Chloride 262.5 ml @ 262.5 mls/ hr Q24H IV ; Start 09/20/17 at 09:30; Status UNV Pharmacy Profile Note 0 ml @ 0 mls/hr UNSCH OTHER ; Start 09/20/17 at 09:30; Stop 09/22/17 at 13:28; Status DC Vancomycin HCl 1250 mg/Sodium Chloride 262.5 ml @ 250 mls/hr ONCE ONCE IV Last administered on 09/20/17at 14:33; Start 09/20/17 at 14:00; Stop 09/20/17 at 15: 02; Status DC Cefazolin Sodium/ Dextrose 50 ml @ 100 mls/hr Q8H IV Last administered on at 14:52; Start 09/20/17 at 15:00 Vancomycin HCl 1250 mg/Sodium Chloride 262.5 ml @ 250 mls/hr ONCE ONCE IV Last administered on 09/21/17at 12:40; Start 09/21/17 at 14:00; Stop 09/21/17 at 15: 02; Status DC Alprazolam (Xanax) 0.125 mg Q4H PRN PO anxiety Last administered on 09/25/17at 21 :33; Start 09/21/17 at 14:00 Alprazolam (Xanax) 0.25 mg ONCE ONCE PO Last administered on 09/21/17at 14:24; Start 09/21/17 at 14:00; Stop 09/21/17 at 14:02; Status DC Warfarin Sodium (Coumadin) 4 mg DAILY@16 PO Last administered on 09/22/17at 15:47 ; Start 09/21/17 at 16:00; Stop 09/25/17 at 13:56; Status DC Aspirin (Ecotrin Ec) 81 mg DAILY PO Last administered on 09/26/17at 08:11; Start 09/22/17 at 09:00 Levofloxacin (Levaquin) 500 mg DAILY PO Last administered on 09/22/17at 10:34; Start 09/22/17 at 09:00; Stop 09/22/17 at 13:28; Status DC Lactated Ringer's 1,000 ml @ 30 mls/hr Q24H PRN IV SEE LABEL COMMENTS; Start at 04:15; Stop 09/25/17 at 04:14; Status DC Sodium Chloride 500 ml @ 30 mls/hr [id number] PRN IV SEE LABEL COMMENTS; Start 09/22/17 at 04:15; Stop 09/25/17 at 04:14; Status DC Povidone Iodine (Betadine 5% Antisepsis Kit) 1 applic [employer] PRN EACH NARE SEE LABEL COMMENTS; Start 09/22/17 at 04:15; Stop 09/25/17 at 04:14; Status DC Chlorhexidine Gluconate (Chlorhexidine 2% Cloth) 3 pack [employer] PRN TOPICAL SEE LABEL COMMENTS; Start 09/22/17 at 04:15; Stop 09/25/17 at 04:14; Status DC Vancomycin HCl 1500 mg/Sodium Chloride 515 ml @ 250 mls/hr Q24H IV Last administered on 09/22/17at 12:30; Start 09/22/17 at 13:00; Stop 09/22/17 at 13:28; Status DC Miscellaneous Information SPECIFIC LAB TO BE DRAWN:VANCOMYCIN TROUGH DATE TO... ONCE ONCE .XX ; Start 09/24/17 at 12:45; Stop 09/24/17 at 12:46; Status Cancel Cefepime HCl 2000 mg/Sodium Chloride 100 ml @ 200 mls/hr Q8H IV Last administered on 09/24/17at 06:07; Start 09/22/17 at 15:00; Stop 09/24/17 at 08:14; Status DC Furosemide (Lasix) 40 mg BID@09,18 PO Last administered on 09/26/17at 08:12; Start 09/23/17 at 18:00 Pharmacy Profile Note 0 ml @ 0 mls/hr UNSCH OTHER ; Start 09/23/17 at 13:00; Stop 09/25/17 at 14:19; Status DC Cefepime HCl 2000 mg/Sodium Chloride 100 ml @ 200 mls/hr Q12H IV Last administered on 09/26/17at 08:10; Start 09/24/17 at 20:00 Sodium Chloride (NS Flush) See Protocol DAILY IV FLUSH Last administered on 09/25at 07:39; Start 09/25/17 at 09:00 Sodium Chloride (NS Flush) See Protocol UNSCH PRN IV FLUSH SEE PROTOCOL TABLE; Start 09/24/17 at 15:45 Heparin Sodium (Porcine) (Heparin Central Flush) See Protocol DAILY IV FLUSH Last administered on 09/25/17at 07:39; Start 09/25/17 at 09:00 Heparin Sodium (Porcine) (Heparin Central Flush) See Protocol UNSCH PRN IV FLUSH SEE PROTOCOL TABLE; Start 09/24/17 at 15:45 Sodium Chloride (NS Flush) UNSCH PRN IV FLUSH SEE PROTOCOL TABLE; Start at 15:45 Potassium Chloride (KCl) 30 meq ONCE ONCE PO Last administered on 09/25/17at 09: 35; Start 09/25/17 at 09:00; Stop 09/25/17 at 09:05; Status DC Clotrimazole (Lotrimin 1% Cream) 1 applic Q12HR TOPICAL Last administered on 09/26/17at 08:12; Start 09/25/17 at 10:30 Pharmacy Profile Note 0 ml @ 0 mls/hr UNSCH OTHER ; Start 09/25/17 at 14:00 Acyclovir (Zovirax 5% Oint (5 Gm)) 1 applic 5 TIMES A DAY TOPICAL ; Start at 10:00; Stop 09/26/17 at 10:00; Status DC Acyclovir (Zovirax 5% Oint (15 Gm)) 1 applic 5 TIMES A DAY TOPICAL Last administered on 09/26/17at 13:50; Start 09/26/17 at 10:00 A/P Problem List: (1) Anemia ICD Code: D64.9 - Anemia, unspecified (2) Thrombocytopenia ICD Code: D69.6 - Thrombocytopenia, unspecified (3) MILLI (acute kidney injury) ICD Code: N17.9 - Acute kidney failure, unspecified (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 - Presence of prosthetic heart valve (5) Elevated troponin ICD Code: R74.8 - Abnormal levels of other serum enzymes (6) Diabetes mellitus ICD Code: E11.9 - Type 2 diabetes mellitus without complications (7) Anxiety ICD Code: F41.9 - Anxiety disorder, unspecified (8) Sepsis ICD Code: A41.9 - Sepsis, unspecified organism Status: Acute (9) Bacteremia ICD Code: R78.81 - Bacteremia (10) Hematuria ICD Code: R31.9 - Hematuria, unspecified (11) Atrial fibrillation ICD Code: I48.91 - Atrial fibrillation Status: Acute Assessment and Plan Severe sepsis/ Bacteremia Blood cultures growing staph aureus, urine culture growing pseudomonas. ID consult appreciated. Limited echo without evidence of vegetation. JULIO 09/22 was negative for endocarditis. - continue cefazolin and Cefepime per ID. - follow repeat blood cultures. - IVFs. - PT/ OT. 09/24 patient to complete treatment for Pseudomonas UTI and will be discharged on IV cefazolin once this has been completed. 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 He is on chronic anticoagulation with Coumadin, Plavix and aspirin. Urology consult appreciated. - continue Weber per urology. - hold anticoagulation. - follow CBC and transfuse as needed. - 09/23 Hematuria has resolved - will Dc Weber catheter and start voiding trials if ok with urology. 09/24 urology recommends discharging with Weber, however patient wants to do voiding trials. I will DC Weber and voiding trials. Will check bladder scan for postvoid residual volume. 09/25 Weber catheter discontinued, patient is voiding well. Thrombocytopenia Unsure of etiology. It appears he was exposed to heparin in August. 09/23 hematology consultation recommendations appreciated. Doubt patient in DIC since clinically looks better. Fibrinogen is within normal range at 341. Platelets are ending up. Suspect cytopenia secondary to combination of sepsis along with low bone marrow reserve. Continue to monitor platelets. 09/24 discussed the case with Dr. Ta. She suspects there is possibly some degree of hemolysis since haptoglobin is less than 10. Peripheral smear was requested. Peripheral smear shows severe normochromic normocytic anemia, moderate thrombocytopenia and occasional fragmented red blood cells with the possibility of a low-grade microangiopathic hemolytic process could not be excluded. Follow-up hematology recommendations. Platelets are stable at 46, 000. 09/25 Discussed case with hematology, concern for MAHA vs TTP. However platelets improving. Continue to monitor platelets. Acute renal failure Appears to be secondary to sepsis, dehydration. Resolving with fluids. 09/23 Acute kidney injury likely due to prerenal azotemia due to sepsis and dehydration. Now resolved. DC IV fluids. Recent TAVR for aortic valve August 27. Cardiology consult appreciated. JULIO noted. - continue cardiac regimen. - follow up with cardiology. Elevated troponin Troponin peaked at 0.13. Likely s/t sepsis. - cardiology following. - telemetry. Diabetes mellitus Well controlled at this time. - continue on sliding scale coverage along with diabetic diet. Anxiety The patient endorses anxiety. - Low-dose of Xanax as needed. Supratherapeutic INR. Coumadin. INR went up to 2.7. Continue to monitor PT/INR daily. We'll consult pharmacy to help with dosing. Atrial fibrillation. On chronic anticoagulation with Coumadin now on hold secondary to hematuria and supratherapeutic INR. Continue telemetry monitoring. Left upper extremity edema. DVT ruled out with negative lower extremity Dopplers ultrasound. Chest congestion for/cough Patient complaining of chest congestion and cough. Chest x-ray ordered. 09/24 chest x-ray shows clear lungs without infiltrates. Continue Lasix 40 mg p.o. twice daily. Bilateral extremities edema. Due to fluid overload. Continue oral Lasix. Daily weights. DVT prophylaxis: Supratherapeutic INR Discharge Planning DC TO HOME WITH [facility] Problem Qualifiers (1) Sepsis: Qualified Codes: A41.9 - Sepsis, unspecified organism Oneil Carmona DO Sep 26, 2017 16:19
[2017-09-26] MEDS ORDERED: FURO40TA PO (16:27)
[2017-09-26] MEDS ORDERED: POTA-163 PO (16:27)
[2017-09-26] MEDS ORDERED: TAMS5CAP PO (16:27)
[2017-09-26] MEDS ORDERED: CLOT1CRE8 TOPICAL (16:27)
[2017-09-26] MEDS ORDERED: LEVEMIR SQ (16:27)
[2017-09-26] MEDS ORDERED: ACYC5OIN4 TOPICAL (16:27)
[2017-09-26] MEDS ORDERED: POTASSIUM CHLORIDE 20 MEQ CONTROLLED RELEASE TAB PO ONE (16:30)
--- NOTE | 2017-09-26 16:34 | HHI.DS ---
Discharge Summary Admission Date Sep 19, 2017 at 08:54 Discharge Date: Sep 26, 2017 Admitting Diagnosis urosepsis (1) Anemia ICD Code: D64.9 - Anemia, unspecified Diagnosis: Secondary (2) Thrombocytopenia ICD Code: D69.6 - Thrombocytopenia, unspecified Diagnosis: Secondary (3) MILLI (acute kidney injury) ICD Code: N17.9 - Acute kidney failure, unspecified Diagnosis: Secondary (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 - Presence of prosthetic heart valve Diagnosis: Principal (5) Elevated troponin ICD Code: R74.8 - Abnormal levels of other serum enzymes Diagnosis: Secondary (6) Diabetes mellitus ICD Code: E11.9 - Type 2 diabetes mellitus without complications Diagnosis: Secondary (7) Anxiety ICD Code: F41.9 - Anxiety disorder, unspecified Diagnosis: Secondary (8) Sepsis ICD Code: A41.9 - Sepsis, unspecified organism Diagnosis: Principal Status: Acute (9) Bacteremia ICD Code: R78.81 - Bacteremia Diagnosis: Principal (10) Hematuria ICD Code: R31.9 - Hematuria, unspecified Diagnosis: Secondary (11) Atrial fibrillation ICD Code: I48.91 - Atrial fibrillation Diagnosis: Principal Status: Acute Procedures JULIO PICC LINE Brief History - From Admission Patient is a 87-year-old male who presented to the hospital with altered mental status fevers and urinary symptoms. Patient has a history of CHF , TAVR done August 27. He was brought in by ambulance after having fevers and dysuria and change in mental status at home. Per the patient's has had difficulty urinating throughout the night was not acting his normal self she noted that he did have a fever at home. Denies any real respiratory issues. Has a cough that is nonproductive denies any abdominal pain had been having difficulty urinating with dysuria. Was found in the emergency department to have a urinary tract infection, will be admitted for urinary tract infection and severe sepsis. We will continue on Rocephin and vancomycin. I will continue to follow the patient throughout the admission for any other issues that may arise CBC/BMP: 09/26/17 0640 09/26/17 0640 Significant Findings Laboratory Tests Test 09/23/17 20:57 09/24/17 05:53 09/25/17 06:20 09/26/17 06:40 Red Blood Count 2.54 MIL/MM3 (4.50-5.90) 2.73 MIL/MM3 (4.50-5.90) 2.72 MIL/MM3 (4.50-5.90) Hemoglobin 8.2 GM/DL (13.0-17.0) 8.8 GM/DL (13.0-17.0) 8.7 GM/DL (13.0-17.0) Hematocrit 23.6 % (39.0-51.0) 25.5 % (39.0-51.0) 25.5 % (39.0-51.0) Red Cell Distribution Width 18.6 % (11.6-17.2) 18.6 % (11.6-17.2) 19.2 % (11.6-17.2) Platelet Count 46 TH/MM3 (150-450) 68 TH/MM3 (150-450) 72 TH/MM3 (150-450) Prothrombin Time 26.7 SEC (9.8-11.6) 28.2 SEC (9.8-11.6) 23.8 SEC (9.8-11.6) [id number] Activity 52 (68-163) Blood Urea Nitrogen 29 MG/DL (7-18) 24 MG/DL (7-18) 20 MG/DL (7-18) Random Glucose 140 MG/DL (74-106) 149 MG/DL (74-106) 138 MG/DL (74-106) Calcium Level 8.2 MG/DL (8.5-10.1) 8.3 MG/DL (8.5-10.1) 8.4 MG/DL (8.5-10.1) Estimat Glomerular Filtration Rate 63 ML/MIN (>89) 60 ML/MIN (>89) 58 ML/MIN (>89) Lactate Dehydrogenase 325 U/L (87-241) 329 U/L (87-241) 334 U/L (87-241) Mean Platelet Volume 11.4 FL (7.0-11.0) Neutrophils (%) (Auto) 82.5 % (16.0-70.0) 81.2 % (16.0-70.0) Lymphocytes (%) (Auto) 6.2 % (9.0-44.0) 6.9 % (9.0-44.0) Monocytes (%) (Auto) 8.3 % (0.0-8.0) 8.3 % (0.0-8.0) Lymphocytes # (Auto) 0.4 TH/MM3 (1.0-4.8) 0.4 TH/MM3 (1.0-4.8) Platelet Estimate LOW (NORMAL) LOW (NORMAL) Ovalocytes 1+ (NORMAL) Haptoglobin LESS THAN 10 MG/DL (30-200) Albumin 2.7 GM/DL (3.4-5.0) Alkaline Phosphatase 197 U/L (45-117) Aspartate Amino Transf (AST/SGOT) 88 U/L (15-37) Total Bilirubin 1.7 MG/DL (0.2-1.0) Direct Bilirubin 0.8 MG/DL (0.0-0.2) Potassium Level 3.2 MEQ/L (3.5-5.1) 3.3 MEQ/L (3.5-5.1) Indirect Bilirubin 0.9 MG/DL (0.0-0.8) Imaging Last Impressions Upper Extremity Ultrasound 09/24/17 Signed Impressions: Service Date/Time: Sunday, September 24, 2017 11:04 - CONCLUSION: Negative for deep venous thrombosis. Oneil Stafford MD FACR Lower Extremity Ultrasound 09/24/17 Signed Impressions: Service Date/Time: Sunday, September 24, 2017 10:50 - CONCLUSION: 1. No DVT identified within either lower extremity. Mahamed Stafford MD Chest X-Ray 09/24/17 Signed Impressions: Service Date/Time: Sunday, September 24, 2017 16:59 - CONCLUSION: 1. PICC line in good position. 2. Regional loss of bone mineralization involving the right humeral head. See previous reports for discussion. Matt Castañeda Jr., MD Abdomen/Pelvis CT 09/19/17 Signed Impressions: Service Date/Time: Tuesday, September 19, 2017 07:14 - CONCLUSION: 1. Bilateral renal calculi and simple cysts. 2. No evidence of obstructive uropathy. 3. Prostatomegaly. 4. Uncomplicated diverticulosis. 5. No acute process. Washington Parra MD PE at Discharge GENERAL: Awake alert oriented talkative and cooperative SKIN: Warm and dry. Multiple herpetic lesions around his mouth HEAD: Atraumatic. Normocephalic. EYES: Pupils equal and round. No scleral icterus. No injection or drainage. Extraocular muscles intact ENT: No nasal bleeding or discharge. Mucous membranes pink and moist. Tongue is midline multiple lesions around his mouth NECK: Trachea midline. No JVD. Supple CARDIOVASCULAR: Regular rate and rhythm. S1-S2 no S3 or S4 RESPIRATORY: No accessory muscle use. Clear to auscultation. Breath sounds equal bilaterally. GASTROINTESTINAL: Abdomen soft, non-tender, nondistended. Hepatic and splenic margins not palpable. MUSCULOSKELETAL: Extremities without clubbing, cyanosis, or edema. No obvious deformities. NEUROLOGICAL: Awake and alert. No obvious cranial nerve deficits. Motor grossly within normal limits. Five out of 5 muscle strength in the arms and legs. Normal speech. PSYCHIATRIC: Appropriate mood and affect; insight and judgment normal. Hospital Course He was admitted. Placed on long-term antibiotic Had a JULIO that was negative Review of the recent TAVR infectious disease wants him on long-term antibiotics for 6 weeks Was seen by urology Seen by cardiology Seen by hematology Seen by infectious disease Has been cleared by Eduardo can be discharged on Ancef 2 g IV every 8 hours for total of 6 weeks Can be discharged today he has home health care set up Pt Condition on Discharge: Good Discharge Disposition: Disch w/ Home Health Serv Discharge Time: > 30 minutes Discharge Instructions DIET: Follow Instructions for: Heart Healthy Diet, Diabetic Diet, Coumadin ( Warfarin) Diet Speech Therapy-Diet Recommends: Regular Activities you can perform: Regular-No Restrictions Follow up Referrals: Cardiology - 1 Week Home Health Infectious Disease - 2 Weeks with Amaris Grissom MD Oncology/Hematology - 09/29/17 PCP Follow-up - 3-5 Days Urology - 2 Weeks with Ganesh Gutierrez DO New Medications: Cefazolin Inj (Cefazolin Inj) 2 Gm/50 Ml Bagp 2 GM IV Q8H for Infection for 36 Days, BAG 0 Refills Epinephrine Inj (Epinephrine Inj) 1 Mg/Ml (1 Ml) Inj 0.3 MG IV PUSH ONCE PRN for ALLERGIC REACTION, #1 VIAL Epinephrine Inj (Epinephrine Inj) 1 Mg/Ml (1 Ml) Inj 0.3 MG SQ ONCE PRN for ALLERGIC REACTION, #1 VIAL Give with any signs of respiratory distress. Hydrocortisone Inj (Solu-Cortef Inj) 250 Mg/2 Ml Inj 250 MG IV PUSH ONCE PRN for ALLERGIC REACTION, #1 VIAL 0 Refills Give over 30-60 seconds. Acyclovir Topical (Acyclovir Topical) 5% Oint 1 APPLIC TOPICAL 5 TIMES A DAY for Infection, #2 TUBE Clotrimazole Topical (Clotrimazole AF Topical) 1% Cream 1 APPLIC TOPICAL Q12HR for Infection, #1 TUBE Furosemide (Furosemide) 40 Mg Tab 40 MG PO BID@09,18 for FLUIDS, #60 TAB Tamsulosin (Flomax) 0.4 Mg Cap 0.4 MG PO DAILY for Manage Prostate Problems, #30 CAP Changed Medications: Potassium Chloride ER (Potassium Chloride ER) 20 Meq Tab 20 MEQ PO BID for Electrolyte Replacement, #60 TAB 0 Refills (Changed from: DAILY; 30) Continued Medications: Allopurinol (Allopurinol) 100 Mg Tab 100 MG PO BID for Gout, #30 TAB 0 Refills Aspirin (Aspirin 81 Low Dose) 81 Mg Chew 81 MG CHEW DAILY, #30 TAB Atorvastatin (Atorvastatin) 40 Mg Tab 40 MG PO HS for Cholesterol Management, #30 TAB 0 Refills Cholecalciferol (Vitamin D-1000) 1,000 Unit Tab 1000 UNITS PO DAILY for Nutritional Supplement, #1 BOTTLE 0 Refills Coenzyme Q10 (Ubidecarenone) (Co Q 10) 100 Mg-5 Unit Cap 100 MG PO DAILY Cyanocobalamin (Vitamin B-12) 1,000 Mcg Tab Unknown Dose PO TID for Nutritional Supplement, #1 BOTTLE 0 Refills Ferrous Gluconate (Ferrous Gluconate) 240 Mg (27 Mg Iron) Tab 240 MG PO DAILY for Nutritional Supplement, #30 TAB 0 Refills Finasteride (Finasteride) 5 Mg Tab 5 MG PO DAILY for Manage Prostate Problems, #30 TAB 0 Refills Do not crush. Insulin Detemir Inj (Levemir Inj) 1,000 unit/ 10 ML Vial 28 UNITS SQ DAILY for Blood Sugar Management, #5 VIAL 0 Refills (This prescription has been renewed) Do not mix with any other Insulin. Lisinopril (Lisinopril) 10 Mg Tab 10 MG PO DAILY for Blood Pressure Management, #30 TAB 3 Refills Magnesium Chloride (Mag-Delay) 70 Mg Magnesium Tab 500 MG PO BID, TAB 0 Refills Metoprolol Tartrate (Metoprolol Tartrate) 25 Mg Tab 12.5 MG PO Q12HR for Blood Pressure Management, #60 TAB 2 Refills Polyethylene Glycol 3350 Powder (Miralax Powder) 17 Gm Powd 17 GM PO DAILY PRN for CONSTIPATION, #1 CAN 0 Refills Mix and dissolve one measuring cap-ful (17 grams) in water or juice. Pyridoxine (Vitamin B-6) 100 Mg Tab 100 MG PO DAILY for Nutritional Supplement, #30 TAB 0 Refills Warfarin (Warfarin) 4 Mg Tab 4 MG PO DAILY for Blood Clot Prevention, #30 TAB 0 Refills Discontinued Medications: Clopidogrel (Plavix) 75 Mg Tab 75 MG PO DAILY for Blood Clot Prevention, #30 TAB 3 Refills Furosemide (Furosemide) 40 Mg Tab 40 MG PO DAILY, #30 TAB 0 Refills Oneil Carmona DO Sep 26, 2017 16:34
--- NOTE | 2017-10-04 08:56 | PQ ---
Physician Query Response Document PATIENT: DEDRICK BASSETT : 1930 ADMIT DATE: 09/19/2017 8:54 AM DISCH DATE: 09/26/2017 5:30 PM RESPONDING PROVIDER #: MANSI QUERY TEXT: Clinical Significance The diagnosis documented below requires documentation to state the clinical significance: Fluid over load in patient with history of CHF. Please respond and also state in your next progress note whether the condition is: -- Clinically insignificant -- Clinically significant, and please also state why it is clinically significant -- Unable to determine clinical significance -- Other, please specify If you have any additional questions/comments and/or concerns, please do not hesitate to reach out to the [employer]/Coding Hotline, Ext. [phone]. The patient's Clinical Indicators include: H Beginning with Progress Note of 09/23/17: Chest congestion for/cough Order a chest x-ray. There bilateral rales on auscultation. I will start the patient on oral Lasix 40 mg by mouth twice a day. Bilateral extremities edema. Due to fluid overload. Start the patient on Lasix orally as above. Daily weights. History of CHF documented in Discharge Summary, no mention of fluid overload. Query created by: Magda Bates on 10/02/2017 1:39 PM RESPONSE TEXT: PATIENT IS SP TAVR- HAS HISTORY OF CHF EF NOT DONE THIS ADMISSION HAS CHRONIC CHF PER CHART REVIEW SUSPECT DIASTOLIC DYSFUNCTION QUERY TEXT: CHF Acuity and Type Congestive Heart Failure is documented in the Medical Record. Please document the type and acuity (in cludes probable or suspected) Such as: Type: -- Systolic -- Diastolic -- Combined -- Other, please specify Acuity: -- Acute -- Chronic -- Acute on chronic -- Other, please specify Also please document the underlying cause of the CHF (includes probable or suspected) If you have any additional questions/comments and/or concerns, please do not hesitate to reach out to the [employer]/Coding Hotline, Ext. [phone]. The patient's Clinical Indicators include: H Patient with JULIO performed 09/22/17. LEFT VENTRICLE Normal left ventricular size and wall thickness. The left ventricular systolic function is normal wit h an estimated ejection fraction in the range of 60-65%. Left ventricular diastolic function parameters ar e normal. Patient also had 2D echocardiogram on 09/20/17. Query created by: Magda Bates on 10/02/2017 1:51 PM RESPONSE TEXT: ACUTE ON CHRONIC DIASTOLIC CHF AFTER HAVING TAVR DONE Electronically signed by: Oneil Carmona 10/04/2017 8:52 AM
== END 2017-09-26 17:30 | disposition home health service (06) | DRG 871 ==
LOC: NEPE 05:24 → NEDA 08:54 → N05A 15:00
PROVIDERS: ADMIT Hospitalist; ATTEND Hospitalist
PROC: B24BZZ4 Ultrasonography of Heart with Aorta, Transesophageal (ICD-10-PCS; 2017-09-22)
PROC: 02HV33Z Insertion of Infusion Device into Superior Vena Cava, Percutaneous Approach (ICD-10-PCS; principal; 2017-09-24)
PROC: B548ZZA Ultrasonography of Superior Vena Cava, Guidance (ICD-10-PCS; 2017-09-24)
DX: A41.9 Sepsis, unspecified organism (principal); I13.0 Hypertensive heart and chronic kidney disease with heart failure and stage 1 through stage 4 chronic kidney disease, or unspecified chronic kidney disease; I50.33 Acute on chronic diastolic (congestive) heart failure; N18.3 Chronic kidney disease, stage 3 (moderate); N17.9 Acute kidney failure, unspecified; D61.818 Other pancytopenia; D68.32 Hemorrhagic disorder due to extrinsic circulating 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; D69.6 Thrombocytopenia, unspecified; E86.0 Dehydration; N39.0 Urinary tract infection, site not specified; B96.5 Pseudomonas (aeruginosa) (mallei) (pseudomallei) as the cause of diseases classified elsewhere; E11.9 Type 2 diabetes mellitus without complications; Z79.4 Long term (current) use of insulin; D64.9 Anemia, unspecified; I48.91 Unspecified atrial fibrillation; R65.20 Severe sepsis without septic shock; E78.5 Hyperlipidemia, unspecified; M10.9 Gout, unspecified; K21.9 Gastro-esophageal reflux disease without esophagitis; Z95.2 Presence of prosthetic heart valve; Z79.01 Long term (current) use of 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; Z79.02 Long term (current) use of antithrombotics/antiplatelets; Z79.82 Long term (current) use of aspirin; K44.9 Diaphragmatic hernia without obstruction or gangrene; I25.10 Atherosclerotic heart disease of native coronary artery without angina pectoris; I25.2 Old myocardial infarction; Z95.5 Presence of coronary angioplasty implant and graft; F41.9 Anxiety disorder, unspecified; R74.8 Abnormal levels of other serum enzymes; N40.1 Benign prostatic hyperplasia with lower urinary tract symptoms; N32.0 Bladder-neck obstruction; R31.9 Hematuria, unspecified; N50.89 Other specified disorders of the male genital organs; Z85.028 Personal history of other malignant neoplasm of stomach; Z87.891 Personal history of nicotine dependence
CPT/HCPCS: 36569; 71045; 74176; 76937; 80048; 80053; 80076; 80202; 81001; 82550; 82607; 82728; 82746; 82948; 83010; 83036; 83540; 83550; 83605; 83615; 83735; 84100; 84155; 84439; 84443; 84484; 85007; 85025; 85027; 85044; 85384; 85397; 85610; 85730; 86022; 86403; 86880; 87040; 87077; 87086; 87186; 87205; 87804; 88184; 88185; 93308; 93312; 93320; 93325; 93970; 93971; 96365; J0690; J0692; J0696; J1642; J1815; J3370; J7030; J7040; J7050

== ENCOUNTER 2017-10-09 11:23 | Inpatient (IN) | payer OTHER, MEDICARE ==
[~2017-10-09] VITALS: Ht 172.7 cm; Wt 91.6 kg
[2017-10-09] VITALS (7 sets, daily range): BP systolic 122–159; BP diastolic 63–80; PULSE 63–90; RESP 17–24; TEMP 97.6; O2SAT 99–100
[~2017-10-09 11:23] MED LIST changes: +ACYC5OIN4 TOPICAL; +CEFA2SOL IV; +CLOT1CRE8 TOPICAL; +EPIN1INJ21 IV PUSH; +EPIN1INJ21 SQ; -PLAV75TA29 PO; +SOLU250I IV PUSH; +TAMS5CAP PO
[2017-10-09] MEDS ORDERED: IOHEXOL 350 MG/ML 10 ML VIAL (for RAD DIAG) IVCONTRAST ONE (11:24)
[2017-10-09] MEDS ORDERED: SODIUM CHLOR 0.9% 1000 ML INJ 1,000 ML IV ONE (11:29)
[2017-10-09 11:47] LABS: AUTOMATED NEUTROPHIL # 3.1 TH/MM3 (1.8-7.7); BASOPHIL % 1.1 % (0.0-2.0); EOSINOPHIL # 0.1 TH/MM3 (0-0.4); HEMATOCRIT 23.2 % (39.0-51.0); HEMOGLOBIN 7.9 GM/DL (13.0-17.0); LYMPH % 10.9 % (9.0-44.0); LYMPHOCYTE # 0.4 TH/MM3 (1.0-4.8); MEAN CELL VOLUME 96.7 FL (80.0-100.0); MEAN CORPUSCULAR HEMOGLOBIN 32.9 PG (27.0-34.0); MONO % 7.4 % (0.0-8.0); MONOCYTE # 0.3 TH/MM3 (0-0.9); NEUT % 78.6 % (16.0-70.0); PLATELET COUNT 81 TH/MM3 (150-450); RED CELL DISTRIBUTION WIDTH 19.3 % (11.6-17.2); WHITE BLOOD COUNT 3.9 TH/MM3 (4.0-11.0)
--- NOTE | 2017-10-09 11:47 | RADRPT ---
EXAM DATE/TIME: 10/09/2017 11:35 [facility] COMPARISON: CT BRAIN W/O CONTRAST, August 28, 2017, 17:56. INDICATIONS : Stroke alert; left side weakness, right facial droop. RADIATION DOSE: 44.16 CTDIvol (mGy) This report was called by Marshal Rush at 1142 MEDICAL HISTORY : Non-responsive. SURGICAL HISTORY : Non-responsive. ENCOUNTER: Initial ACUITY: 1 day PAIN SCALE: Non-responsive LOCATION: cranial TECHNIQUE: Multiple contiguous axial images were obtained of the head. Using automated exposure control and adj ustment of the mA and/or kV according to patient size, radiation dose was kept as low as reasonably a chievable to obtain optimal diagnostic quality images. DICOM format image data is available electro nically for review and comparison. FINDINGS: Study is mildly degraded by patient motion. Grossly, the ventricles are symmetric and normal. There i s no evidence of mass or hemorrhage. There is nothing to specifically indicate acute infarction. Ther e is periorbital soft tissue swelling on the right aerated polypoid mucosal disease is present facial sinuses with confluent or near confluent opacification of the left maxillary sinus. CONCLUSION: Motion degraded exam, grossly negative for acute process Pino Araya MD on October 09, 2017 at 11:42 Board Certified Radiologist. This report was verified electronically.
--- NOTE | 2017-10-09 11:52 | PD ---
HPI Chief Complaint: Stroke Alert Time Seen by Provider: 11:29 Travel History International Travel<30 days: No Contact w/Intl Traveler<30days: No Traveled to known affect area: No History of Present Illness HPI The patient is 87 years old and arrives to the ER following an apparent cardiac arrest. Patient had urinated and then returned to the main area house where he reported feeling awful to his and then fell to the ground became unresponsive. EMS notes no pulse on scene and performed 2 minutes of chest compressions and noted a return of circulation. The patient has since maintained a sinus rhythm. EMS notes weakness in the right arm and altered mental status. Upon arrival here patient was observed to have right-sided weakness as well as aphasia receptive and expressive. Stroke alert called. Patient is known to have atrial fibrillation and takes Coumadin for that. PFSH Past Medical History Hx Anticoagulant Therapy: Yes Anemia: Yes Cancer: Yes (STOMACH) Cardiac Catheterization: Yes Cardiovascular Problems: Yes High Cholesterol: Yes Coronary Artery Disease: Yes Diabetes: Yes (TYPE 2) Diminished Hearing: No Endocrine: Yes Gastrointestinal Disorders: Yes (GERD) GERD: Yes Genitourinary: Yes (HX BPH) Hepatitis: No Hiatal Hernia: Yes Hypertension: Yes Immune Disorder: No Implanted Vascular Access Dvce: Yes Musculoskeletal: No Neurologic: No Psychiatric: No Reproductive: No Respiratory: No Myocardial Infarction: Yes Thyroid Disease: No Past Surgical History Abdominal Surgery: No Body Medical Devices: CARDIAC STENT Cardiac Surgery: No Coronary Stent: Yes (x1) Ear Surgery: No Endocrine Surgery: No Eye Surgery: Yes (CATARACTSWITH LENS) Genitourinary Surgery: Yes (PROSTATE SURGERY) Oral Surgery: Yes (TONSILLECTOMY) Prostatectomy: Yes Thoracic Surgery: No Tonsillectomy: Yes Other Surgery: Yes (NASAL POLYPS) Social History Alcohol Use: No Tobacco Use: No Substance Use: No Allergies-Medications (Allergen,Severity, Reaction): Coded Allergies: niacin (Verified Allergy, Unknown, 10/09/17) sitagliptin (Unverified Adverse Reaction, Severe, STOMACH PAIN, 10/09/17) Reported Meds & Prescriptions Reported Meds & Active Scripts Active Flomax (Tamsulosin HCl) 0.4 Mg Cap 0.4 Mg PO DAILY Furosemide 40 Mg Tab 40 Mg PO BID@ Acyclovir Topical (Acyclovir) 5% Oint 1 Applic TOPICAL 5 TIMES A DAY Clotrimazole AF Topical (Clotrimazole) 1% Cream 1 Applic TOPICAL Q12HR Potassium Chloride ER (Potassium Chloride) 20 Meq Tab 20 Meq PO BID Epinephrine Inj 1 Mg/Ml (1 Ml) Inj 0.3 Mg SQ ONCE PRN Give with any signs of respiratory distress. Epinephrine Inj 1 Mg/Ml (1 Ml) Inj 0.3 Mg IV PUSH ONCE PRN Solu-Cortef Inj (Hydrocortisone Sodium Succinate) 250 Mg/2 Ml Inj 250 Mg IV PUSH ONCE PRN Give over 30-60 seconds. Cefazolin Inj (Cefazolin Sodium/Dextrose) 2 Gm/50 Ml Bagp 2 Gm IV Q8H 36 Days Lisinopril 10 Mg Tab 10 Mg PO DAILY Metoprolol Tartrate 25 Mg Tab 12.5 Mg PO Q12HR Reported Folic Acid 0.8 Mg Tab 1 Mg PO DAILY Levemir Inj (Insulin Detemir) 1,000 unit/ 10 ML Vial 25 Units SQ DAILY Do not mix with any other Insulin. Vitamin D-1000 (Cholecalciferol) 1,000 Unit Tab 1,000 Units PO DAILY Vitamin B-6 (Pyridoxine HCl) 100 Mg Tab 100 Mg PO DAILY Finasteride 5 Mg Tab 5 Mg PO DAILY Do not crush. Atorvastatin (Atorvastatin Calcium) 40 Mg Tab 40 Mg PO HS Miralax Powder (Polyethylene Glycol 3350 Powder) 17 Gm Powd 17 Gm PO DAILY PRN Mix and dissolve one measuring cap-ful (17 grams) in water or juice. Co Q 10 (Coenzyme Q10 (Ubidecarenone)) 100 Mg-5 Unit Cap 100 Mg PO DAILY Aspirin 81 Low Dose (Aspirin) 81 Mg Chew 81 Mg CHEW DAILY Vitamin B-12 (Cyanocobalamin) 1,000 Mcg Tab Unknown Dose PO TID Mag-Delay (Magnesium Chloride) 70 Mg Magnesium Tab 500 Mg PO BID Ferrous Gluconate 240 Mg (27 Mg Iron) Tab 240 Mg PO DAILY Warfarin 4 Mg Tab 4 Mg PO DAILY Allopurinol 100 Mg Tab 100 Mg PO BID Review of Systems ROS Limitations: Clinical Condition Physical Exam Narrative GENERAL: 87-year-old male well-nourished well-developed unresponsive Vital Signs Date Time Temp Pulse Resp B/P (MAP) Pulse Ox O2 Delivery O2 Flow Rate FiO2 10/09/17 11:28 63 22 159/70 (99) 99 SKIN: Warm and dry. HEAD: Atraumatic. Normocephalic. Ecchymosis and swelling about the right eye. EYES: Pupils equal and round. No scleral icterus. No injection or drainage. ENT: No nasal bleeding or discharge. Mucous membranes pink and moist. NECK: Trachea midline. No JVD. CARDIOVASCULAR: Irregular. Heart rate about 60. RESPIRATORY: No accessory muscle use. Clear to auscultation. Breath sounds equal bilaterally. GASTROINTESTINAL: Abdomen soft, non-tender, nondistended. Hepatic and splenic margins not palpable. MUSCULOSKELETAL: Ecchymosis about L upper extremity and left chest. No gross deformity otherwise NEUROLOGICAL: The patient is awake however is not responsive to verbal or tactile stimulus. There is some movement of the left arm and left leg however there is none on the right side. The pupils are equal and reactive to light. PSYCHIATRIC: Unable to assess. Data Data Last Documented VS Vital Signs Date Time Temp Pulse Resp B/P (MAP) Pulse Ox O2 Delivery O2 Flow Rate FiO2 10/09/17 12:19 24 100 Non-Rebreather 15.00 10/09/17 12:18 10/09/17 11:50 97.6 84 Orders Orders Diet Npo (10/09/17 Lunch) Activity Bed Rest (10/09/17 ) Electrocardiogram (10/09/17 ) I-Stat Profile (10/09/17 11:29) Prothrombin Time / Inr (Pt) (10/09/17 11:29) Act Partial Throm Time (Ptt) (10/09/17 11:29) Complete Blood Count With Diff (10/09/17 11:29) Fibrinogen (10/09/17 11:29) Creatine Kinase (Cpk) (10/09/17 11:29) Troponin I (10/09/17 11:29) Ua Includes Microscopic (10/09/17 11:29) Drug Screen, Random Urine (10/09/17 11:29) Type And Screen (10/09/17 11:29) Ct Brain W/O Iv Contrast(Rout) (10/09/17 ) Cta Brain W Iv Contrast W 3d (10/09/17 11:29) Cta Neck W Iv Contrast W 3d (10/09/17 11:29) Consult Neurology (10/09/17 ) Blood Glucose (10/09/17 11:29) Ecg Monitoring (10/09/17 11:29) Neuro Checks Q2HX12,Q4H (10/09/17 11:29) Nursing Bedside Swallow Assess .ONCE (10/09/17 11:29) Iv Access Insert/Monitor (10/09/17 11:29) NPO (10/09/17 11:29) Oximetry (10/09/17 11:29) Resp Oxygen Nc Stroke (10/09/17 ) Sodium Chlor 0.9% 1000 Ml Inj (Ns 1000 M (10/09/17 11:29) Cath For Specimen (10/09/17 11:29) (Hub Use Only)In Phy Cons/Ref (10/09/17 11:34) Iohexol 350 Inj (Omnipaque 350 Inj) (10/09/17 11:24) [facility] [place] (10/09/17 12:53) Sodium Chlor 0.9% 1000 Ml Inj (Ns 1000 M (10/09/17 12:53) Consult Pt Eval & Treat (10/09/17 12:53) Prothrombin Time / Inr (Pt) (10/10/17 06:00) Prothrombin Time / Inr (Pt) (10/11/17 06:00) Prothrombin Time / Inr (Pt) (10/12/17 06:00) Prothrombin Time / Inr (Pt) (10/13/17 06:00) Prothrombin Time / Inr (Pt) (10/14/17 06:00) Prothrombin Time / Inr (Pt) (10/15/17 06:00) Prothrombin Time / Inr (Pt) (10/16/17 06:00) Prothrombin Time / Inr (Pt) (10/17/17 06:00) Mri Brain W/O Contrast (10/09/17 ) ^ Other Nursing Orders (10/09/17 12:56) Chest, Single Ap (10/09/17 ) Urinalysis - C+S If Indicated (10/09/17 13:00) Labs Laboratory Tests Test 10/09/17 11:30 White Blood Count 3.9 TH/MM3 Red Blood Count 2.40 MIL/MM3 Hemoglobin 7.9 GM/DL Bedside Hemoglobin 7.8 G/DL Hematocrit 23.2 % Bedside Hematocrit 23.0 % Mean Corpuscular Volume 96.7 FL Mean Corpuscular Hemoglobin 32.9 PG Mean Corpuscular Hemoglobin Concent 34.0 % Red Cell Distribution Width 19.3 % Platelet Count 81 TH/MM3 Mean Platelet Volume 10.0 FL Neutrophils (%) (Auto) 78.6 % Lymphocytes (%) (Auto) 10.9 % Monocytes (%) (Auto) 7.4 % Eosinophils (%) (Auto) 2.0 % Basophils (%) (Auto) 1.1 % Neutrophils # (Auto) 3.1 TH/MM3 Lymphocytes # (Auto) 0.4 TH/MM3 Monocytes # (Auto) 0.3 TH/MM3 Eosinophils # (Auto) 0.1 TH/MM3 Basophils # (Auto) 0.0 TH/MM3 CBC Comment AUTO DIFF Differential Total Cells Counted 100 Neutrophils % (Manual) 77 % Band Neutrophils % 7 % Lymphocytes % 7 % Monocytes % 6 % Eosinophils % 2 % Basophils % 1 % Neutrophils # (Manual) 3.3 TH/MM3 Differential Comment FINAL DIFF MANUAL Platelet Estimate LOW Platelet Morphology Comment NORMAL Ovalocytes 1+ Acanthocytes OCC Prothrombin Time 45.6 SEC Prothromb Time International Ratio 4.5 RATIO Activated Partial Thromboplast Time 50.9 SEC Fibrinogen 392 mg/dL Bedside Sodium 137 MMOL/L Bedside Potassium 3.9 MMOL/L Bedside Chloride 103 MMOL/L Bedside Blood Urea Nitrogen 45 MG/DL Bedside Creatinine 1.8 MG/DL Bedside Glucose 198 MG/DL Total Creatine Kinase 88 U/L Troponin I LESS THAN 0.02 NG/ML [facility] Medical Screen Exam Complete: Yes Emergency Medical Condition: Yes Differential Diagnosis Ischemic stroke, hemorrhagic stroke, fall, syncope, traumatic bleed Narrative Course CBC & BMP Diagram 10/09/17 11:30 [id number] BUN is 45 and 20 care creatinines 1.8 Troponin < 0.02 EKG shows atrial fibrillation with a rate of 85 Last Impressions Neck CTA 10/09/17 1129 Signed Impressions: Service Date/Time: September 11:44 - CONCLUSION: 1. 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 2. Moderate calcified atherosclerotic plaquing at the right carotid bifurcation and along the proximal segment of the right internal carotid artery. Focal moderate stenosis of the right internal carotid artery approximately 1 cm above the origin of approximately 50-60%%. 3. Atherosclerotic plaquing along the distal right internal carotid artery at the level of the cavernous sinus. The 4. Several mildly prominent nonspecific mediastinal lymph nodes. This raises the possibility of mediastinal adenopathy. Recommend dedicated CT thorax for further evaluation. Matheus Ramirez MD Head CTA 10/09/17 1129 Signed Impressions: Service Date/Time: September 11:44 - CONCLUSION: 1. Occlusion of the left internal carotid artery. 2. Otherwise, vascular structure surrounding the upper [place] are patent and unremarkable for patient's age. Matheus Ramirez MD Head CT 10/09/17 0000 Signed Impressions: Service Date/Time: September 11:35 - CONCLUSION: Motion degraded exam, grossly negative for acute process Pino Araya MD Patient's NIH stroke scale improving in accord with resolution of right arm and right leg paralysis. There is also improvement in mentation at the time of reassessment approximately 12:45 PM. Estimated NIH scale at the time of reassessment 9 at the time of initial evaluation stroke scale was 17. Case was discussed with interventional radiology Dr Galarza and with a complete left ICA occlusion and improving NIH scale patient is not a good candidate for interventional radiology. Pt will be admitted to hospitalist service. Neurology consultation, Dr Galarza, appreciated. Critical Care Narrative Aggregate critical care time was 35 minutes. Time to perform other separately billable procedures was not included in the critical care time. My time did not include minutes spent treating any other patients simultaneously or on activities that did not directly contribute to the patient's treatment. The services I provided to this patient were to treat and/or prevent clinically significant deterioration that could result in: Permanent deficit, permanent weakness, inappropriate administration of alteplase I provided critical care services requiring my management, as noted below: Chart data review, documentation time, medication orders and management, vital sign assessments/reviewing monitor data, ordering and reviewing lab tests, ordering and interpreting/reviewing x-rays and diagnostic studies, care of the patient and discussion of the patient with the admitting physicians. Stroke Alert NIHSS NIH Stroke Scale Result: 17 NIHSS Time Completed: 11:30 Thrombolytic Contraindications Contraindications: Head Trauma<3 months ago, Bleeding Diathesis Diagnosis Diagnosis: Primary Impression: Cardiopulmonary arrest with successful resuscitation Additional Impressions: Ischemic stroke Elevated INR Admitting Physician Requests: Admit Mahamed Rush MD Oct 09, 2017 11:52
[2017-10-09 11:55] LABS: INTERNATIONAL NORMALIZED RATIO 4.5 RATIO; PROTHROMBIN TIME - PATIENT 45.6 SEC (9.8-11.6)
[2017-10-09] MEDS ORDERED: LEVEMIR SQ ×2 (11:56→11:57)
[2017-10-09] MEDS ORDERED: FOLI800T PO (11:59)
[2017-10-09 12:05] LABS: TROPONIN I LESS THAN 0.02 NG/ML (0.02-0.05)
--- NOTE | 2017-10-09 12:11 | RADRPT ---
EXAM DATE/TIME: 10/09/2017 11:44 [facility] COMPARISON: CT BRAIN W/O CONTRAST, October 09, 2017, 11:35. INDICATIONS : Stroke alert; right facial droop, left side weakness. IV CONTRAST: 96 cc Omnipaque 350 (iohexol) IV ; Cumulative dose for multiple exams. RADIATION DOSE: 28.60 CTDIvol (mGy) ; Combined studies MEDICAL HISTORY : Non-responsive. SURGICAL HISTORY : Non-responsive. ENCOUNTER: Initial ACUITY: 1 day PAIN SCALE: Non-responsive LOCATION: cranial TECHNIQUE: Volumetric scanning was performed using a multi-row detector CT scanner. The data was post processed with a variety of visualization algorithms including full volume maximum intensity projection, multi -planar sliding thin slab reformation, curved planar reformation, and surface rendering techniques. Using automated exposure control and adjustment of the mA and/or kV according to patient size, radiat ion dose was kept as low as reasonably achievable to obtain optimal diagnostic quality images. DICO M format image data is available electronically for review and comparison. FINDINGS: There is occlusion of the left internal carotid artery. The A1 and M1 segments are patent bilaterally . There is a patent right and left posterior communicating arteries. The anterior, middle cerebral an d posterior cervical arteries are patent bilaterally. No evidence of occlusion. No evidence of cerebr al aneurysm. There are atherosclerotic changes involving the cavernous portion of the right internal carotid artery. CONCLUSION: 1. Occlusion of the left internal carotid artery. 2. Otherwise, vascular structure surrounding the [place] are patent and unremarkable for pat ient's age. Matheus Ramirez MD on October 09, 2017 at 12:04 Board Certified Radiologist. This report was verified electronically.
[2017-10-09 12:30] LABS: BANDS 7 % (0-6); BASOPHILS 1 % (0-2); LYMPHOCYTES 7 % (9-44); MONOCYTES 6 % (0-8); NEUTROPHIL # MANUAL DIFF 3.3 TH/MM3 (1.8-7.7); POLYS (SEG NEUTROPHILS) 77 % (16-70)
--- NOTE | 2017-10-09 12:30 | RADRPT ---
EXAM DATE/TIME: 10/09/2017 11:44 [facility] COMPARISON: No previous studies available for comparison. INDICATIONS : Stroke alert; left side weakness, right facial droop. IV CONTRAST: 96 cc Visipaque (iodixanol) IV ; Cumulative dose for multiple exams. RADIATION DOSE: 28.60 CTDIvol (mGy) ; Combined studies MEDICAL HISTORY : Non-responsive. SURGICAL HISTORY : Non-responsive. ENCOUNTER: Initial ACUITY: 1 day PAIN SCALE: Non-responsive LOCATION: neck Elevated flow velocities and ICA/CCA ratios have been found to correlate with increased degrees of vessel stenosis, calculated as percentage of diameter relative to a normal segment of distal ICA/CCA. TECHNIQUE: Volumetric scanning was performed using a multirow detector CT scanner. The data was post processed with a variety of visualization algorithms including full-volume maximum intensity projection, multip lanar sliding thin-slab reformation, curved-planar reformation, and surface-rendering techniques. Us ing automated exposure control and adjustment of the mA and/or kV according to patient size, radiatio n dose was kept as low as reasonably achievable to obtain optimal diagnostic quality images. DICOM f ormat image data is available electronically for review and comparison. FINDINGS: AORTIC ARCH: There is a three-vessel origin of the great vessels from the aorta. No evidence of any significant o stial narrowing. There are atherosclerotic plaques at the origin of the vessels and along the thoraci c aortic arch. RIGHT CAROTID: The common carotid artery is patent. There is calcified plaquing at the carotid bifurcation and along the proximal segment of the right internal carotid artery. Approximately 1 cm above the origin there appears to be some focal moderate stenosis of approximately 50-60%. The rest of the right internal c arotid artery is patent. There are atherosclerotic plaquing involving the distal right internal carot id artery at the cavernous sinus location. The external carotid artery is patent. LEFT CAROTID: The common carotid artery is patent. There is atherosclerotic plaquing at the bifurcation. There is c omplete occlusion of the left internal carotid artery. The external carotid artery is patent with a f ocal moderate stenosis at the origin.. VERTEBRALS: The vertebral arteries are patent bilaterally. The right vertebral artery is dominant. There are some calcified plaques at the origin of the right vertebral artery and along the course of the right vert ebral artery. There is plaquing at the origin of the left vertebral artery. There is several mildly prominent nonspecific mediastinal lymph nodes. Chronic sinus disease predominantly involving the left maxillary sinus and left nasal cavity. Nonspecific diffuse soft tissue swelling over the right orbit. CONCLUSION: 1. 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 2. Moderate calcified atherosclerotic plaquing at the right carotid bifurcation and along the proxima l segment of the right internal carotid artery. Focal moderate stenosis of the right internal carotid artery approximately 1 cm above the origin of approximately 50-60%. 3. Atherosclerotic plaquing along the distal right internal carotid artery at the level of the cavern ous sinus. The 4. Several mildly prominent nonspecific mediastinal lymph nodes. This raises the possibility of media stinal adenopathy. Recommend dedicated CT thorax for further evaluation. Matheus Ramirez MD on October 09, 2017 at 12:20 Board Certified Radiologist. This report was verified electronically.
[2017-10-09 12:31] LABS: ACANTHOCYTES OCC (NORMAL); OVALOCYTES 1+ (NORMAL)
[2017-10-09] MEDS: SODIUM CHLOR 0.9% 1000 ML INJ 1,000 ML IV SCH (12:53)
--- NOTE | 2017-10-09 12:56 | HHI.PR ---
Subjective Remarks i dw neurointerventin left ica occlusion left mca open may have m2 branch occluded too high a risk for attempted thrombectomy for risk of inc showered emboli Objective Vital Signs Date Time Temp Pulse Resp B/P (MAP) Pulse Ox O2 Delivery O2 Flow Rate FiO2 10/09/17 12:19 24 100 Non-Rebreather 15.00 10/09/17 12:19 100 Simple Mask 8.00 10/09/17 12:18 100 Non-Rebreather 15.00 10/09/17 12:18 24 100 Non-Rebreather 15.00 10/09/17 11:50 97.6 84 20 151/73 (99) 100 Non-Rebreather 15.00 10/09/17 11:40 90 20 139/80 (99) 100 Non-Rebreather 15.00 10/09/17 11:28 63 22 159/70 (99) 99 Result Diagram: 10/09/17 1130 Praveen Galarza MD Oct 09, 2017 12:56
[2017-10-09] MEDS ORDERED: SODIUM CHLORIDE 0.9% FLUSH 10 ML FLUSH IV FLUSH PRN (13:45)
[2017-10-09] MEDS ORDERED: ACETAMINOPHEN 325 MG TAB PO PRN (13:45)
[2017-10-09] MEDS ORDERED: ONDANSETRON HCL 4 MG/2 ML VIAL IVP PRN (13:45)
[2017-10-09] MEDS ORDERED: oxyCODONE/ACETAMINOPHEN 10 MG/325 MG TAB PO PRN (13:45)
[2017-10-09] MEDS ORDERED: MAGNESIUM HYDROXIDE SUSP 30 ML CUP PO PRN (13:45)
[2017-10-09] MEDS ORDERED: MORPHINE SULFATE 2 MG/ML INJ IV PUSH PRN ×3 (13:45)
[2017-10-09] MEDS ORDERED: POLYETHYLENE GLYCOL 17 GM PKG PO PRN (13:45)
[2017-10-09] MEDS ORDERED: SENNOSIDES 8.6 MG TAB PO PRN (13:45)
[2017-10-09] MEDS ORDERED: DEXTROSE 50% IN WATER 50 ML VIAL(D50) IV PUSH PRN (13:45)
[2017-10-09] MEDS ORDERED: BISACODYL 10 MG SUPP RECTAL PRN (13:45)
[2017-10-09] MEDS ORDERED: ceFAZolin 2 GM/50 ML BAG IV SCH (13:45)
[2017-10-09] MEDS ORDERED: LACTULOSE SYRUP 20 GM/30 ML CUP PO PRN (13:45)
[2017-10-09] MEDS ORDERED: oxyCODONE/ACETAMINOPHEN 5 MG/325 MG TAB PO PRN (13:45)
[2017-10-09] MEDS ORDERED: METOCLOPRAMIDE HCL 10 MG/2 ML VIAL IV PUSH PRN (13:45)
[2017-10-09] MEDS ORDERED: NALOXONE HCL 0.4 MG/ML AMP IV PUSH PRN (13:45)
[2017-10-09] MEDS ORDERED: GLUCAGON 1 MG/ML VIAL OTHER PRN ×2 (13:45)
--- NOTE | 2017-10-09 13:48 | RADRPT ---
EXAM DATE/TIME: 10/09/2017 12:59 [facility] COMPARISON: CHEST SINGLE AP, September 24, 2017, 16:59. INDICATIONS : Stroke alert. MEDICAL HISTORY : Unobtainable. SURGICAL HISTORY : Unobtainable. ENCOUNTER: Initial ACUITY: 1 day PAIN SCORE: Non-responsive. LOCATION: Bilateral chest FINDINGS: Right arm PICC line is present. Prosthetic aortic valve is noted. Lungs are stable and grossly clear. No effusion present. Cardiac contours are satisfactory. Paget's disease involving the right humerus. CONCLUSION: Stable chest appearance Pino Araya MD on October 09, 2017 at 13:45 Board Certified Radiologist. This report was verified electronically.
--- NOTE | 2017-10-09 14:02 | MB ---
cc: Praveen Galarza MD DATE: 10/09/2017 This is a stroke alert called at 11:30 this morning. HISTORY OF PRESENT ILLNESS: The patient is an 87-year-old man who evidently got up to go to the bathroom and fell on the floor. 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 He was given CPR for about 5 minutes and then it was noted he was not moving the right side well. He has had a recent anemia this month with thrombocytopenia, urosepsis, history of congestive heart failure, status post TAVR in 2006, chronic atrial fibrillation, on Coumadin, history of neuroendocrine cancer, coronary artery disease, hyperlipidemia, hypertension, BPH, GERD, cardiac stents, lens implants, cataracts, prostate surgery, prostatectomy, tonsillectomy, recently just admitted on 09/19/2017 for change of mental status. Medications at that time were atorvastatin, B12, 81 of aspirin, insulin, Lasix, Coumadin 4 mg a day, allopurinol. ALLERGIES: NIACIN AND SITAGLIPTIN. He has not seen neurology here. He did see oncology. He was put on vancomycin and Ancef. His TAVR was actually done on 08/27/2017. He had some swelling in his testicles and penis. 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 PHYSICAL EXAMINATION: VITAL SIGNS: On exam, he is in atrial fibrillation, 151/73, 20, 84, afebrile. He is in a hard collar. HEART: Irregularly, irregular. HEENT: He has a lot of ecchymosis about the right eye, it is almost entirely shut. His pupils appear to be equal; however, his visual smith are hard to tell if they were full or not. He seemed to count fingers once, but then not another. He has a moderate aphasia, which makes it difficult. He did stick out his tongue for me after a while but initially would nod to command. His face is symmetric. He is moving the left leg a little bit better than the right, but the left appears to be normal. In the right I would say is about a 4+/5. Same thing with the right arm compared to the left arm, although it is hard to say as he cannot follow commands exactly. [place] is impossible to tell. He has an expressive type aphasia. He cannot read. He did say hello and goodbye several times, but other times it was hard to discern. He appears very dysarthric. I do note that he was noted by the ER doctor to be weak on the right arm and the leg. LABORATORY: CAT scan of the brain is negative. CTA of the neck appears to show left carotid occlusion with reconstitution intracranially across the lower [place] to the left MCA. His platelet count is 81,000. His hematocrit is 23, hemoglobin 7.9. UA last time was positive. Coags today, his INR is 4.5. His basic metabolic profile: BUN is 45, creatinine is 1.8, glucose 198. Troponin is pending. B12 was normal. TSH normal. LDL 107. CTA shows good filling of the left middle cerebral artery and maybe some decreased branch filling at the trifurcation on the left. 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 He is no longer paralyzed on the right side. He has some aphasia, which may be clearing also. I think he has had good reconstitution distally. Keep his head of bed flat. Give him some IV hydration. I will wait for radiology to call me on the CTA; however, appears he may have a left carotid occlusion with good reconstitution, and await further evaluation, but now we are not giving him IV TPA because he had the head trauma and chest compressions, his evidently could not get , which would put him at increase for pericardial hemorrhage. He appears to be improving regardless. Also, with the elevated INR he is not a candidate for IV TPA. The question is whether we should try to take out the clot in the left carotid. ADDENDUM: His NIH stroke scale, as best we can tell with the aphasia, is an 8. MD JUANIS Max/ELIZABETH/florinda , 12:16 PM , 12:54 PM
--- NOTE | 2017-10-09 14:03 | HHI.HP ---
HPI Service [facility] Hospitalists Primary Care Physician Unknown Admission Diagnosis Acute Ischemic CVA; Cardiopulmonary Arrest Diagnoses: Chief Complaint: Patient came in as a stroke alert Travel History International Travel<30 Days: No Contact w/Intl Traveler <30 Da: No Traveled to Known Affected Are: No History of Present Illness Patient is an 87-year-old male well-known to the service. He comes to the emergency department after possible cardiac arrest. Patient had to urinate and then returned to the main area in the house when he reported feeling awful to his and then he fell to the ground and became unresponsive. EMS was called and thought that he had no pulse on the scene and perform 2 minutes of chest compressions and noted return of circulation. Since then he has been in sinus rhythm. EMS and her noted weakness in the right arm and altered mental status. Upon arrival here he is noted to have some right sided weakness and some aphasia receptive and expressive stroke alert had been called has known to have atrial fibrillation takes Coumadin as well as aspirin for this. Is currently being treated for urosepsis with cefazolin 2 g IV every 8 hours Patient also has a history of a TAVR will continue anticoagulation if is able to swallow Have discussed with his and the patient and ER physician and ER nurse Patient is quite aphasic can get some things correct but not able to tell us where he is at does know that the president of [facility] is Bernard Tramalia But could not tell me that he was at [place] and at the hospital nor what city Review of Systems ROS Limitations: Altered Mental Status Constitutional: DENIES: Diaphoretic episodes, Fatigue, Fever, Weight gain, Weight loss, Chills, Dizziness, Change in appetite Endocrine: DENIES: Heat/cold intolerance, Polydipsia, Polyuria, Polyphagia Eyes: DENIES: Blurred vision, Diplopia, Eye inflammation, Eye pain, Vision loss , Photosensitivity Ears, nose, mouth, throat: DENIES: Tinnitus, Hearing loss, Vertigo, Nasal discharge, Oral lesions, Throat pain, Hoarseness, Ear Pain, Running Nose, Epistaxis, Sinus Pain, Toothache, Odynophagia Respiratory: DENIES: Apneas, Cough, Snoring, Wheezing, Hemoptysis, Sputum production, Shortness of breath Cardiovascular: DENIES: Chest pain, Palpitations, Syncope, Dyspnea on Exertion , PND, Lower Extremity Edema Gastrointestinal: COMPLAINS OF: Difficulty Swallowing, DENIES: Abdominal pain, Black stools, Bloody stools, Constipation, Diarrhea, Nausea, Vomiting, Anorexia Musculoskeletal: DENIES: Joint pain, Muscle aches, Stiffness, Joint Swelling, Back pain, Neck pain Integumentary: COMPLAINS OF: Abnormal pigmentation (Has bruising around his left axillary and rib area and bruising around right orbital with ecchymosis), DENIES: Nail changes, Pruritus, Rash Hematologic/lymphatic: DENIES: Bruising, Lymphadenopathy Immunologic/allergic: DENIES: Urticaria Neurologic: COMPLAINS OF: Speech Problems, DENIES: Abnormal gait, Headache, Localized weakness, Paresthesias, Seizures, Tremor Psychiatric: COMPLAINS OF: Anxiety, Agitation, DENIES: Confusion, Mood changes , Depression, Hallucinations, Suicidal Ideation, Homicidal Ideation, Delusions Except as stated in HPI: all other systems reviewed are Neg Past Family Social History Past Medical History Atrial fibrillation with chronic anticoagulation with Coumadin Anemia History of stomach cancer History of cardiovascular issues Hypercholesterolemia Coronary artery disease Diabetes mellitus type 2 GERD History of benign prostatic hypertrophy Hiatal hernia Hypertension History of HI Recent urosepsis being treated with Ancef 2 g IV every 8 hours History of kidney stones GERD BPH with prostate gland removal Past Surgical History Cardiac stenting coronary stenting Bilateral cataract surgery with lens extraction and implants Prostate surgery Tonsillectomy Prostate Nasal polyps Cholecystectomy 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 Epinephrine Inj 1 Mg/Ml (1 Ml) Inj 0.3 Mg IV PUSH ONCE PRN Solu-Cortef Inj (Hydrocortisone Sodium Succinate) 250 Mg/2 Ml Inj 250 Mg IV PUSH ONCE PRN Give over 30-60 seconds. Cefazolin Inj (Cefazolin Sodium/Dextrose) 2 Gm/50 Ml Bagp 2 Gm IV Q8H 36 Days Lisinopril 10 Mg Tab 10 Mg PO DAILY Metoprolol Tartrate 25 Mg Tab 12.5 Mg PO Q12HR Reported Folic Acid 0.8 Mg Tab 1 Mg PO DAILY Levemir Inj (Insulin Detemir) 1,000 unit/ 10 ML Vial 25 Units SQ DAILY Do not mix with any other Insulin. Vitamin D-1000 (Cholecalciferol) 1,000 Unit Tab 1,000 Units PO DAILY Vitamin B-6 (Pyridoxine HCl) 100 Mg Tab 100 Mg PO DAILY Finasteride 5 Mg Tab 5 Mg PO DAILY Do not crush. Atorvastatin (Atorvastatin Calcium) 40 Mg Tab 40 Mg PO HS Miralax Powder (Polyethylene Glycol 3350 Powder) 17 Gm Powd 17 Gm PO DAILY PRN Mix and dissolve one measuring cap-ful (17 grams) in water or juice. Co Q 10 (Coenzyme Q10 (Ubidecarenone)) 100 Mg-5 Unit Cap 100 Mg PO DAILY Aspirin 81 Low Dose (Aspirin) 81 Mg Chew 81 Mg CHEW DAILY Vitamin B-12 (Cyanocobalamin) 1,000 Mcg Tab Unknown Dose PO TID Mag-Delay (Magnesium Chloride) 70 Mg Magnesium Tab 500 Mg PO BID Ferrous Gluconate 240 Mg (27 Mg Iron) Tab 240 Mg PO DAILY Warfarin 4 Mg Tab 4 Mg PO DAILY Allopurinol 100 Mg Tab 100 Mg PO BID Allergies: Coded Allergies: niacin (Verified Allergy, Unknown, 10/09/17) sitagliptin (Unverified Adverse Reaction, Severe, STOMACH PAIN, 10/09/17) Active Ordered Medications Current Medications Sodium Chloride 1,000 ml @ 70 mls/hr [id number] ONCE IV Last administered on 10/09at 13:39; Start 10/09/17 at 11:29; Stop 10/10/17 at 01:46 Iohexol (Omnipaque 350 Inj) 96 ml STK-MED ONCE IVCONTRAST Last administered on 10/09/17at 11:24; Start 10/09/17 at 11:24; Stop 10/09/17 at 11:49; Status DC Sodium Chloride 1,000 ml @ 100 mls/hr Q10H IV ; Start 3/22/18 at 12:53 Acyclovir (Zovirax 5% Oint (15 Gm)) 1 applic 5 TIMES A DAY TOPICAL ; Start at 14:00; Status UNV Allopurinol (Zyloprim) 100 mg BID PO ; Start 10/09/17 at 21:00; Status UNV Atorvastatin Calcium (Lipitor) 40 mg HS PO ; Start 10/09/17 at 21:00; Status UNV Cefazolin Sodium/ Dextrose (Ancef 2 Gm Premix) 2 gm Q8H IV ; Start 10/09/17 at 13:45; Status UNV Cholecalciferol (Vitamin D3) 1,000 units DAILY PO ; Start 10/10/17 at 09:00; Status UNV Clotrimazole (Lotrimin 1% Cream) 1 applic Q12HR TOPICAL ; Start 10/09/17 at 21: 00; Status UNV Finasteride (Proscar) 5 mg DAILY PO ; Start 10/10/17 at 09:00; Status UNV Folic Acid (Folate) 1 mg DAILY PO ; Start 10/10/17 at 09:00; Status UNV Furosemide (Lasix) 40 mg BID@ PO ; Start 10/09/17 at 18:00; Status UNV Lisinopril (Prinivil) 10 mg DAILY PO ; Start 10/10/17 at 09:00; Status UNV Magnesium Chloride (Slow-Mag Dr) 500 mg BID PO ; Start 10/09/17 at 21:00; Status UNV Metoprolol Tartrate (Lopressor) 12.5 mg Q12HR PO ; Start 10/09/17 at 21:00; Status UNV Polyethylene Glycol (Miralax) 17 gm DAILY PRN PO CONSTIPATION; Start 10/09/17 at 13:45; Status UNV Potassium Chloride (KCl) 20 meq BID PO ; Start 10/09/17 at 21:00; Status UNV Pyridoxine HCl (Vitamin B6) 100 mg DAILY PO ; Start 10/10/17 at 09:00; Status UNV Tamsulosin HCl (Flomax) 0.4 mg DAILY PO ; Start 10/10/17 at 09:00; Status UNV Warfarin Sodium (Coumadin) 4 mg DAILY PO ; Start 10/10/17 at 09:00; Status UNV Non-Formulary Medication 100 mg DAILY PO ; Start 10/10/17 at 09:00; Status UNV Non-Formulary Medication 240 mg DAILY PO ; Start 10/10/17 at 09:00; Status UNV Dextrose (D50w (Vial) Inj) 50 ml UNSCH PRN IV PUSH HYPOGLYCEMIA-SEE COMMENTS; Start 10/09/17 at 13:45; Status UNV Glucagon (Glucagon Inj) 1 mg UNSCH PRN OTHER HYPOGLYCEMIA-SEE COMMENTS; Start 10/09/17 at 13:45; Status UNV Insulin Aspart (NovoLOG SUPPLEMENTAL SCALE) 1 ACHS SLIDING SCALE SQ ; Start at 17:00; Status UNV Family History Hypertension diabetes Social History Lives with denies any tobacco, alcohol, or illicit drug use Physical Exam Vital Signs Vital Signs Date Time Temp Pulse Resp B/P (MAP) Pulse Ox O2 Delivery O2 Flow Rate FiO2 10/09/17 12:19 24 100 Non-Rebreather 15.00 10/09/17 12:19 100 Simple Mask 8.00 10/09/17 12:18 100 Non-Rebreather 15.00 10/09/17 12:18 24 100 Non-Rebreather 15.00 10/09/17 11:50 97.6 84 20 151/73 (99) 100 Non-Rebreather 15.00 10/09/17 11:40 90 20 139/80 (99) 100 Non-Rebreather 15.00 10/09/17 11:28 63 22 159/70 (99) 99 Physical Exam GENERAL: This is a well-nourished, well-developed patient, in moderate distress. SKIN: No rashes. Cool and dry. Positive ecchymosis around the left axillary rib area and ecchymosis around the right orbital area HEAD: Atraumatic. Normocephalic. No temporal or scalp tenderness. EYES: Pupils equal round and reactive. Extraocular motions intact. No scleral icterus. No injection or drainage. ENT: Nose without bleeding, purulent drainage or septal hematoma. Throat without erythema, tonsillar hypertrophy or exudate. Uvula midline. Airway patent. Cervical collar in place NECK: Trachea midline. No JVD or lymphadenopathy. Supple, nontender, no meningeal signs. CARDIOVASCULAR: IRRegular rate and rhythm without murmurs, gallops, or rubs. S1 -S2 no S3 or S4 RESPIRATORY: Clear to auscultation. Breath sounds equal bilaterally. No wheezes , rales, or rhonchi. GASTROINTESTINAL: Abdomen soft, non-tender, nondistended. No hepato-splenomegaly , or palpable masses. No guarding. MUSCULOSKELETAL: Extremities without clubbing, cyanosis, or edema. No joint tenderness, effusion, or edema noted. No calf tenderness. Negative Homans sign bilaterally. Bruising around the left axillary area as well as the left ribs and ecchymosis around the right orbital area NEUROLOGICAL: Awake and alert. Cranial nerves II through XII intact. Motor and sensory grossly within normal limits.4 out of 5 muscle strength in all muscle groups. ABNormal speech. Patient has some degree of aphasia Laboratory Laboratory Tests Test 10/09/17 11:30 White Blood Count 3.9 Red Blood Count 2.40 Hemoglobin 7.9 Bedside Hemoglobin 7.8 Hematocrit 23.2 Bedside Hematocrit 23.0 Mean Corpuscular Volume 96.7 Mean Corpuscular Hemoglobin 32.9 Mean Corpuscular Hemoglobin Concent 34.0 Red Cell Distribution Width 19.3 Platelet Count 81 Mean Platelet Volume 10.0 Neutrophils (%) (Auto) 78.6 Lymphocytes (%) (Auto) 10.9 Monocytes (%) (Auto) 7.4 Eosinophils (%) (Auto) 2.0 Basophils (%) (Auto) 1.1 Neutrophils # (Auto) 3.1 Lymphocytes # (Auto) 0.4 Monocytes # (Auto) 0.3 Eosinophils # (Auto) 0.1 Basophils # (Auto) 0.0 CBC Comment AUTO DIFF Differential Total Cells Counted 100 Neutrophils % (Manual) 77 Band Neutrophils % 7 Lymphocytes % 7 Monocytes % 6 Eosinophils % 2 Basophils % 1 Neutrophils # (Manual) 3.3 Differential Comment FINAL DIFF MANUAL Platelet Estimate LOW Platelet Morphology Comment NORMAL Ovalocytes 1+ Acanthocytes OCC Prothrombin Time 45.6 Prothromb Time International Ratio 4.5 Activated Partial Thromboplast Time 50.9 Fibrinogen 392 Bedside Sodium 137 Bedside Potassium 3.9 Bedside Chloride 103 Bedside Blood Urea Nitrogen 45 Bedside Creatinine 1.8 Bedside Glucose 198 Total Creatine Kinase 88 Troponin I LESS THAN 0.02 Result Diagram: 10/09/17 1130 Imaging Last Impressions Neck CTA 10/09/17 1129 Signed Impressions: Service Date/Time: September 11:44 - CONCLUSION: 1. 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 2. Moderate calcified atherosclerotic plaquing at the right carotid bifurcation and along the proximal segment of the right internal carotid artery. Focal moderate stenosis of the right internal carotid artery approximately 1 cm above the origin of approximately 50-60%%. 3. Atherosclerotic plaquing along the distal right internal carotid artery at the level of the cavernous sinus. The 4. Several mildly prominent nonspecific mediastinal lymph nodes. This raises the possibility of mediastinal adenopathy. Recommend dedicated CT thorax for further evaluation. Matheus Ramirez MD Head CTA 10/09/17 1129 Signed Impressions: Service Date/Time: September 11:44 - CONCLUSION: 1. Occlusion of the left internal carotid artery. 2. Otherwise, vascular structure surrounding the viejas of Laws are patent and unremarkable for patient's age. Matheus Ramirez MD Head CT 10/09/17 0000 Signed Impressions: Service Date/Time: September 11:35 - CONCLUSION: Motion degraded exam, grossly negative for acute process Pino Araya MD Caprini VTE Risk Assessment Caprini VTE Risk Assessment: Mod/High Risk (score >= 2) Caprini Risk Assessment Model Point Value = 1 Point Value = 2 Point Value = 3 Point Value = 5 Age 41-60 Minor surgery BMI > 25 kg/m2 Swollen legs Varicose veins or History of unexplained or recurrent spontaneous Oral contraceptives or hormone replacement Sepsis (< 1 month) Serious lung disease, including pneumonia (< 1 month) Abnormal pulmonary function Acute myocardial infarction Congestive heart failure (< 1 month) History of inflammatory bowel disease Medical patient at bed rest Age 61-74 Arthroscopic surgery Major open surgery (> 45 min) Laparoscopic surgery (> 45 min) Malignancy Confined to bed (> 72 hours) Immobilizing plaster cast Central venous access Age >= 75 History of VTE Family history of VTE Factor V Leiden Prothrombin [id number] Lupus anticoagulant Anticardiolipin antibodies Elevated serum homocysteine Heparin-induced thrombocytopenia Other congenital or acquired thrombophilia Stroke (< 1 month) Elective arthroplasty Hip, pelvis, or leg fracture Acute spinal cord injury (< 1 month) Prophylaxis Regimen Total Risk Factor Score Risk Level Prophylaxis Regimen 0-1 Low Early ambulation 2 Moderate Order ONE of the following: *Sequential Compression Device (SCD) *Heparin 5000 units SQ BID 3-4 Higher Order ONE of the following medications: *Heparin 5000 units SQ TID *Enoxaparin/Lovenox 40 mg SQ daily (WT < 150 kg, CrCl > 30 mL/min) *Enoxaparin/Lovenox 30 mg SQ daily (WT < 150 kg, CrCl > 10-29 mL/min) *Enoxaparin/Lovenox 30 mg SQ BID (WT < 150 kg, CrCl > 30 mL/min) AND/OR *Sequential Compression Device (SCD) 5 or more Highest Order ONE of the following medications: *Heparin 5000 units SQ TID (Preferred with Epidurals) *Enoxaparin/Lovenox 40 mg SQ daily (WT < 150 kg, CrCl > 30 mL/min) *Enoxaparin/Lovenox 30 mg SQ daily (WT < 150 kg, CrCl > 10-29 mL/min) *Enoxaparin/Lovenox 30 mg SQ BID (WT < 150 kg, CrCl > 30 mL/min) AND *Sequential Compression Device (SCD) Assessment and Plan Assessment and Plan Acute stroke with complete occlusion of the left internal carotid artery at its origin as well as moderate calcified atherosclerotic plaquing at the right carotid bifurcation along the proximal segment of the right internal carotid artery with focal moderate stenosis of the right internal carotid artery approximately 1 cm above the origin of approximately 50-60% with atherosclerotic plaquing along the distal right internal carotid artery at the level of the cavernous sinus severely mildly prominent nonspecific mediastinal lymph nodes Head CTA shows occlusion of the left internal carotid artery Head CT shows motion degraded exam grossly negative for acute process We will get physical therapy and occupational therapy and speech therapy to eval and treat Has been seen by neurology already not a candidate for thrombolytics Diabetes mellitus continue with Accu-Cheks before meals and at bedtime with sliding scale coverage i We will get physical therapy and occupational therapy and speech therapy to eval and treat since the positive stroke Patient is not a thrombolytic candidate Status post cardiopulmonary arrest with successful resuscitation Recent infection systemic being treated with Ancef 2 g IV every 8 we will continue this Hypertension resume home medications of passive swallow eval BPH continue on Flomax and finasteride if able to pass swallow eval Rectal aspirin at this time if not able to swallow eval Daily PT/INR with goal of 2.0-3.0 currently supratherapeutic today Hyperlipidemia continue on Lipitor Gout continue on allopurinol History of TAVR with chronic iron deficiency anemia Chronic kidney disease monitor labs Thrombocytopenia 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 In the case of services not specified as inpatient-only, they are appropriately provided as inpatient services in accordance with the 2-midnight benchmark. Estimated LOS (days): 3 days is the estimated time the patient will need to remain in the hospital, assuming treatment plan goals are met and no additional complications. Post-Hospital Plan: Not yet determined Oneil Carmona DO Oct 09, 2017 14:03
[2017-10-09] MEDS: ASPIRIN 300 MG SUPP RECTAL SCH (14:51)
[2017-10-09] MEDS: ACYCLOVIR 5% OINT 15 APPLIC/15 GM TUBE TOPICAL SCH ×3 (15:00→22:00)
[2017-10-09] MEDS ORDERED: PILL SPLITTER OTHER PRN (15:00)
[2017-10-09 15:04] LABS: BILIRUBIN, URINE NEG (NEG); BLOOD, URINE MOD (NEG); GLUCOSE,URINE NEG (NEG); HYALINE CAST, URINE 3 /lpf (RARE); KETONE, URINE NEG (NEG); NITRITE,URINE NEG (NEG); URINE COLOR YELLOW (YELLW/STRAW); URINE LEUKOCYTE ESTERASE NEG (NEG)
--- NOTE | 2017-10-09 15:55 | RADRPT ---
EXAM DATE/TIME: 10/09/2017 15:04 [facility] COMPARISON: CT BRAIN W/O CONTRAST, October 09, 2017, 11:35. INDICATIONS : Stroke alert. Left side weakness, right facial droop. MEDICAL HISTORY : Unknown. SURGICAL HISTORY : Tumor removed. ENCOUNTER: Subsequent ACUITY: 1 day PAIN SCORE: 0/10 LOCATION: head. TECHNIQUE: Multiplanar, multisequence MRI of the brain was performed without contrast. FINDINGS: Diffusion restricted imaging is provided. No findings to indicate acute cortical infarction are ident ified. The T2-weighted images demonstrate subtle abnormal T2 signal layering within at least 2 sulci posteri or to the sylvian fissure on the left. In addition, there is a small area of abnormal increased T2 si gnal in the subdural space overlying the high right posterior parietal cortices. These areas demonstr ate significant signal dropout on the susceptibility weighted images and are concerning for acute are as of subarachnoid and an area of subdural hemorrhage. These areas were not present on the patient's previous CT examination of 10/09/17. The ventricles are normal in size and configuration. No mass lesion is identified. The appearance of the posterior fossa is unremarkable. CONCLUSION: 1. The exam demonstrates subtle areas of abnormal susceptibility weighted signal dropout in layering in the least 2 sulci on the left and a small area seen over the high left frontal cortex. These areas are consistent with small areas of acute subarachnoid hemorrhage. 2. The examination also demonstrates a small extra-axial collection measuring approximately 9 mm in t hickness overlying the high right posterior parietal cortices. This is consistent with a small area o f acute subdural hemorrhage. These areas were not evident on the patient's previous CT scan. 3. No abnormal signal identified on the diffusion restricted images to indicate acute cortical infarc tion. Mahamed Stafford MD on October 09, 2017 at 15:36 Board Certified Radiologist. This report was verified electronically.
--- NOTE | 2017-10-09 16:15 | RADRPT ---
EXAM DATE/TIME: 10/09/2017 15:04 [facility] COMPARISON: CTA CAROTID ARTERIES W 3D RECON, October 09, 2017, 11:44. INDICATIONS : Stroke alert. Left side weakness, right facial droop. MEDICAL HISTORY : Unknown. SURGICAL HISTORY : Tumor removal. ENCOUNTER: Subsequent ACUITY: 1 day PAIN SCORE: 0/10 LOCATION: head. Please note a normal MRA of the brain does not entirely exclude the possibility of a small aneurysm, nor the possibility of distal intracranial vessel disease. TECHNIQUE: 3D time of flight MRA was performed. Source images, multiplanar STS MIP, and 3D volume MIP reconstru ctions were reviewed. FINDINGS: The left internal carotid artery is occluded. The left vertebral artery is relatively diminutive. The mcgrath of Laws vascular structures are intact. There is slight asymmetric decrease in size and colby w related enhancement in the left MCA compared to the right which is presumably a chronic appearance. No major intracranial vessel occlusion is otherwise identified. There is no evidence of aneurysm or vascular malformation. CONCLUSION: Occlusion of the left internal carotid artery with adequate reconstitution via anterior and posterior communicating vessels Pion Araya MD on October 09, 2017 at 16:11 Board Certified Radiologist. This report was verified electronically.
[2017-10-09] MEDS: INSULIN ASPART SUPPLEMENTAL SCALE SQ SCH ×2 (17:00→21:00)
--- NOTE | 2017-10-09 17:05 | RADRPT ---
EXAM DATE/TIME: 10/09/2017 14:16 [facility] COMPARISON: No previous studies available for comparison. INDICATIONS : Cerebrovascular accident. MEDICAL HISTORY : Hypercholesterolemia. Hernia, hiatal. Diabetes mellitus type 2. Carcinoma, stomach. BPH. Coronary art miguel angel disease. HTN. GERD. Anemia. Anxiety. SURGICAL HISTORY : Tonsillectomy. Coronary artery stent. Prostatectomy. Cataracts with lens. Cardiac cath. Nasal polyps. Blood transfusions. ENCOUNTER: Initial ACUITY: 1 day PAIN SCORE: 0/10 LOCATION: Bilateral neck PEAK SYSTOLIC VELOCITIES (cm/sec): ICA/CCA RATIO: Right: 1.6 Left: N/A ICA: Right: 104.9 Left: no flow seen CCA: Right: 64.6 Left: 37.3 ECA: Right: 63.3 Left: 130.7 VERTEBRAL: Right: 85.9 antegrade Left: 49.3 antegrade Elevated flow velocities and ICA/CCA ratios have been found to correlate with increased degrees of vessel stenosis, calculated as percentage of diameter relative to a normal segment of distal ICA/CCA FINDINGS: RIGHT CAROTID: Calcified plaque with resultant up to 50% stenosis. LEFT CAROTID: Internal carotid artery is occluded. Extra carotid artery is patent with slight increased velocities. VERTEBRAL ARTERIES: Antegrade flow is seen in both vertebral arteries. MISCELLANEOUS: None. CONCLUSION: 1. Occluded left internal carotid artery. 2. Calcified right carotid plaque with resultant up to 50% stenosis. 3. Antegrade vertebral artery flow bilaterally. Tyson García MD on October 09, 2017 at 17:00 Board Certified Radiologist. This report was verified electronically.
[2017-10-09] MEDS: FUROSEMIDE 40 MG TAB PO SCH (18:00)
[2017-10-09 18:05] LABS: HEMOGLOBIN A1C 6.1 % (4.3-6.0)
[2017-10-09] MEDS: ALLOPURINOL 100 MG TAB PO SCH (21:00)
[2017-10-09] MEDS: DOCUSATE SODIUM 50 MG/SENNA 8.6 MG TAB PO SCH (21:00)
[2017-10-09] MEDS: METOPROLOL TARTRATE 25 MG TAB PO SCH (21:00)
[2017-10-09] MEDS: ATORVASTATIN 40 MG TAB PO SCH (21:00)
[2017-10-09] MEDS: SODIUM CHLORIDE 0.9% FLUSH 10 ML FLUSH IV FLUSH SCH (21:00)
[2017-10-09] MEDS: MAGNESIUM OXIDE 400 MG TAB PO SCH (21:00)
[2017-10-09] MEDS: CLOTRIMAZOLE 1% CREAM 15 GM TOPICAL SCH (21:00)
[2017-10-09] MEDS: POTASSIUM CHLORIDE 20 MEQ CONTROLLED RELEASE TAB PO SCH (21:00)
[2017-10-10] VITALS (11 sets, daily range): BP systolic 115–157; BP diastolic 56–72; PULSE 78–94; RESP 16–20; TEMP 97.6–98.7; O2SAT 98–100
[2017-10-10] MEDS: SODIUM CHLOR 0.9% 1000 ML INJ 1,000 ML IV SCH ×3 (01:48→18:25)
[2017-10-10] MEDS: ACYCLOVIR 5% OINT 15 APPLIC/15 GM TUBE TOPICAL SCH ×5 (06:00→20:12)
[2017-10-10 07:32] LABS: INTERNATIONAL NORMALIZED RATIO 4.9 RATIO; PROTHROMBIN TIME - PATIENT 48.9 SEC (9.8-11.6)
[2017-10-10 07:37] LABS: AUTOMATED NEUTROPHIL # 2.5 TH/MM3 (1.8-7.7); BASOPHIL % 1.5 % (0.0-2.0); EOSINOPHIL % 1.1 % (0.0-4.0); LYMPH % 7.3 % (9.0-44.0); LYMPHOCYTE # 0.2 TH/MM3 (1.0-4.8); MEAN CORPUSCULAR HEMOGLOBIN 32.1 PG (27.0-34.0); MEAN CORPUSCULAR HGB CONC 33.1 % (32.0-36.0); MEAN PLATELET VOLUME 10.9 FL (7.0-11.0); MONO % 8.2 % (0.0-8.0); MONOCYTE # 0.2 TH/MM3 (0-0.9); NEUT % 81.9 % (16.0-70.0); PLATELET COUNT 68 TH/MM3 (150-450); RED BLOOD COUNT 2.02 MIL/MM3 (4.50-5.90); RED CELL DISTRIBUTION WIDTH 18.5 % (11.6-17.2)
--- NOTE | 2017-10-10 07:41 | HHI.PR ---
Subjective Remarks i dw neurointerventin left ica occlusion left mca open may have m2 branch occluded too high a risk for attempted thrombectomy for risk of inc showered emboli Objective Vital Signs Date Time Temp Pulse Resp B/P (MAP) Pulse Ox O2 Delivery O2 Flow Rate FiO2 10/10/17 04:45 97.6 85 17 136/63 (87) 99 10/10/17 00:28 98.6 83 17 115/56 (75) 98 10/09/17 20:08 97.6 82 17 139/63 (88) 100 10/09/17 18:18 10/09/17 17:30 84 18 122/67 (85) 99 Room Air 10/09/17 12:19 24 100 Non-Rebreather 15.00 10/09/17 12:19 100 Simple Mask 8.00 10/09/17 12:18 100 Non-Rebreather 15.00 10/09/17 12:18 24 100 Non-Rebreather 15.00 10/09/17 11:50 97.6 84 20 151/73 (99) 100 Non-Rebreather 15.00 10/09/17 11:40 90 20 139/80 (99) 100 Non-Rebreather 15.00 10/09/17 11:28 63 22 159/70 (99) 99 I/O 10/09/17 10/09/17 10/09/17 10/10/17 10/10/17 10/10/17 07:00 15:00 23:00 07:00 15:00 23:00 Output Total 1300 ml Balance -1300 ml Output Urine Total 1300 ml # Voids 1 # Bowel Movements 1 Result Diagram: 10/09/17 1130 Objective Remarks awake alert can name well vff face sym 5/5 t/o Assessment and Plan Assessment and Plan imp unclear if left carotid occ old inr 4.9 now i just gave 5 vit oral small r sdh and a few small sah after fall looks much better plan repeat mri have nusu weigh in about anticoag timing Praveen Galarza MD Oct 10, 2017 07:41
[2017-10-10 07:48] LABS: ALBUMIN 2.7 GM/DL (3.4-5.0); AST (GOT) 102 U/L (15-37); BICARBONATE 22.5 MEQ/L (21.0-32.0); BLOOD UREA NITROGEN 45 MG/DL (7-18); CALCIUM 8.5 MG/DL (8.5-10.1); CHLORIDE 108 MEQ/L (98-107); CREATININE 1.72 MG/DL (0.60-1.30); GLOMERULAR FILTRATION RATE 38 ML/MIN (>89); GLUCOSE,RANDOM 135 MG/DL (74-106); SODIUM (NA) 140 MEQ/L (136-145)
[2017-10-10 07:49] LABS: CHOLESTEROL 59 MG/DL (120-200); TRIGLYCERIDES 69 MG/DL (42-150)
[2017-10-10 07:58] LABS: ALKALINE PHOSPHATASE 225 U/L (45-117); ALT (GPT) 10 U/L (12-78); CHOLESTEROL/ HDL RATIO 2.68 RATIO; FREE T4 1.07 NG/DL (0.76-1.46); LDL CHOLESTEROL 23 MG/DL (0-99); PHOSPHORUS 3.6 MG/DL (2.5-4.9); TOTAL PROTEIN 6.5 GM/DL (6.4-8.2)
[2017-10-10 08:00] LABS: HEMATOCRIT 19.6 % (39.0-51.0); HEMOGLOBIN 6.5 GM/DL (13.0-17.0)
[2017-10-10] MEDS: INSULIN ASPART SUPPLEMENTAL SCALE SQ SCH ×4 (08:00→20:44)
[2017-10-10] MEDS: CHOLECALCIFEROL (VIT D3) 1000 UNIT TAB PO SCH (08:15)
[2017-10-10] MEDS: SODIUM CHLORIDE 0.9% FLUSH 10 ML FLUSH IV FLUSH SCH ×2 (08:15→20:12)
[2017-10-10] MEDS: FINASTERIDE 5 MG TAB PO SCH (08:16)
[2017-10-10] MEDS: TAMSULOSIN HCL 0.4 MG CAP PO SCH (08:16)
[2017-10-10] MEDS: FERROUS SULFATE 325 MG (65 MG ELEMENTAL IRON) TAB PO SCH ×2 (08:16→20:11)
[2017-10-10] MEDS: DOCUSATE SODIUM 50 MG/SENNA 8.6 MG TAB PO SCH ×2 (08:17→20:11)
[2017-10-10] MEDS: METOPROLOL TARTRATE 25 MG TAB PO SCH ×2 (08:19→20:12)
[2017-10-10] MEDS: FOLIC ACID 1 MG TAB PO SCH (08:19)
[2017-10-10] MEDS: LISINOPRIL 10 MG TAB PO SCH (08:19)
[2017-10-10] MEDS: ALLOPURINOL 100 MG TAB PO SCH ×2 (08:19→20:11)
[2017-10-10] MEDS: MAGNESIUM OXIDE 400 MG TAB PO SCH ×2 (08:19→20:11)
[2017-10-10] MEDS: PYRIDOXINE HCL 50 MG TAB PO SCH (08:20)
[2017-10-10] MEDS: POTASSIUM CHLORIDE 20 MEQ CONTROLLED RELEASE TAB PO SCH ×2 (08:21→20:11)
[2017-10-10] MEDS: FUROSEMIDE 40 MG TAB PO SCH ×2 (08:25→18:27)
[2017-10-10] MEDS: ASPIRIN 300 MG SUPP RECTAL SCH (08:31)
[2017-10-10] MEDS: CLOTRIMAZOLE 1% CREAM 15 GM TOPICAL SCH ×2 (08:32→20:12)
[2017-10-10] MEDS ORDERED: FUROSEMIDE 20 MG/2 ML VIAL IV PUSH PRN (09:00)
[2017-10-10] MEDS ORDERED: PHYTONADIONE 5 MG/SWFI 5 ML ORAL SYR PO ONE (09:00)
[2017-10-10] MEDS ORDERED: SODIUM CHLOR 0.9% 250 ML INJ 250 ML IV ONE (09:00)
[2017-10-10] MEDS ORDERED: NON-FORMULARY DRUG (Coenzyme Q10 (Ubidecarenone) (Co Q 10) 100 MG) PO SCH (09:00)
--- NOTE | 2017-10-10 09:49 | RADRPT ---
EXAM DATE/TIME: 10/10/2017 08:44 [place] COMPARISON: CT BRAIN W/O CONTRAST, October 09, 2017, 11:35. CTA BRAIN W 3D RECON, October 09, 2017, 11:44. MRI BRAI N W/O CONTRAST, October 09, 2017, 15:04. INDICATIONS : Left side weakness, right facial droop. MEDICAL HISTORY : Hypercholesterolemia. Hernia, hiatal. Diabetes mellitus type 2. Carcinoma, stomach. SURGICAL HISTORY : Tonsillectomy. Coronary artery stent. Prostatectomy. Cataracts with lens. Cardiac ENCOUNTER: Subsequent ACUITY: 2 day PAIN SCORE: 0/10 LOCATION: cranial TECHNIQUE: Multiplanar, multisequence MRI of the brain was performed without contrast. FINDINGS: The examination is stable from the prior MRI. Again seen is small volume subarachnoid hemorrhage invo lving the left temporoparietal lobe. A small subdural hematoma overlying the right parietal lobe. Thi s measures 9 mm in maximum thickness. No enlarging areas of hemorrhage is observed. No new areas of h emorrhage observed. Atrophy and mild chronic small vessel ischemic change noted. Ventricles are nohemi l in size for the patient's age. There is a soft tissue mass associated with the left maxillary sinus extending into the nasal cavity. CONCLUSION: 1. Stable small volume left subarachnoid hemorrhage. 2. Stable small right parietal subdural hematoma. 3. Mass associated with the left maxillary sinus needs further characterization utilizing a CT of the facial bones. Matt Castañeda Jr., MD on October 10, 2017 at 9:18 Board Certified Radiologist. This report was verified electronically.
[2017-10-10 10:57] LABS: KERATOCYTES OCC (NORMAL)
--- NOTE | 2017-10-10 13:52 | ECHRPT ---
Indication: CVA/TIA CONCLUSIONS The left ventricular systolic function is mildly reduced with an estimated ejection fraction in the range of 45- 50%. Trace mitral valve regurgitation. Status-post percutaneous aortic valve replacement. Trace aortic valve regurgitation. There is mild tricuspid valve regurgitation. BP: 151 / 73 HR: 84 Rhythm: Atrial fibrillation MEASUREMENTS (Male / Female) Normal Values Technical Quality:Fair 2D ECHO LV Diastolic Diameter PLAX 5.4 cm 4.2 - 5.9 / 3.9 - 5.3 cm LV Systolic Diameter PLAX 4.9 cm IVS Diastolic Thickness 0.8 cm 0.6 - 1.0 / 0.6 - 0.9 cm LVPW Diastolic Thickness 0.8 cm 0.6 - 1.0 / 0.6 - 0.9 cm LV Relative Wall Thickness 0.3 RV Internal Dim ED PLAX 3.5 cm LVOT Diameter 1.9 cm Aortic Root Diameter 2.8 cm LA Systolic Diameter LX 4.9 cm 3.0 - 4.0 / 2.7 - 3.8 cm LA Volume Index 72.2 cm/m 16 - 28 cm/m DOPPLER AV Peak Velocity 173.0 cm/s AV Peak Gradient 12.0 mmHg AV Mean Gradient 6.5 mmHg AV Velocity Time Integral 34.4 cm LVOT Peak Velocity 98.8 cm/s LVOT Peak Gradient 3.9 mmHg LVOT Velocity Time Integral 19.1 cm LVOT Cardiac Index 2171.1 cm/minm AV Area Cont Eq vti 1.6 cm AV Area Cont Eq pk 1.6 cm Mitral E Point Velocity 103.4 cm/s LV E' Lateral Velocity 14.7 cm/s Mitral E to LV E' Lateral Ratio 7.0 LV E' Septal Velocity 5.3 cm/s Mitral E to LV E' Septal Ratio 19.7 TR Peak Velocity 334.0 cm/s TR Peak Gradient 44.6 mmHg Right Atrial Pressure 10.0 mmHg Pulmonary Artery Systolic Pressu 54.6 mmHg Right Ventricular Systolic Press 54.6 mmHg PV Peak Velocity 48.5 cm/s PV Peak Gradient 0.9 mmHg FINDINGS LEFT VENTRICLE Normal left ventricular size. Wall thickness is normal. The left ventricular systolic function is mildly reduced with an estimated ejection fraction in the range of 45- 50%. RIGHT VENTRICLE The right ventricle is mildly dilated. LEFT ATRIUM The left atrial size is [id number] dilated. RIGHT ATRIUM The right atrial size is mildly dilated. ATRIAL SEPTUM No atrial level shunt AORTA The aortic root and proximal ascending aorta are not well visualized. MITRAL VALVE Grossly normal No mitral valve stenosis. Trace mitral valve regurgitation. AORTIC VALVE Status-post percutaneous aortic valve replacement. The aortic valve is not well visualized. Trace aortic valve regurgitation. TRICUSPID VALVE Grossly normal There is mild tricuspid valve regurgitation. The estimated pulmonary arterial pressure is 54.6 mmHg. PULMONARY VALVE No pulmonary valve regurgitation or stenosis. VESSELS The inferior vena cava is normal in size. PERICARDIUM No pericardial effusion. Alvaro Rush DO (Electronically Signed) Final Date:10 October 2017 13:51
[2017-10-10] MEDS ORDERED: WARFARIN SOD 4 MG TAB PO SCH (16:00)
--- NOTE | 2017-10-10 18:33 | MG ---
cc: Dhruv Devine MD, Olimpio F MD REQUESTING PHYSICIAN: Dr. Grajeda An EEG was obtained on this 87-year-old patient being evaluated for possible seizures. This EEG shows low and mid amplitude alpha rhythms posteriorly. Intermixed theta activity is seen bilaterally, especially on the left temporal head region. Theta rhythms have higher amplitude. There are beta rhythms and a lot of artifact intermittently. There is some delta activity occasionally and the patient seems to be in sleep stage II at times during the recording. Photic stimulation showed no significant change. INTERPRETATION: Mildly abnormal electroencephalogram because of mild left temporal slowing, suggesting underlying structural abnormality, but no epileptiform features present. Dhruv Gaspar. MD Sy[facility]/ , 05:59 PM , 06:15 PM
[2017-10-10 19:05] LABS: HEMOGLOBIN A1C 6.1 % (4.3-6.0)
--- NOTE | 2017-10-10 19:17 | PD.CONS ---
[facility] Service Rehabilitation Medicine Consult Requested By Reason for Consult Comprehensive rehabilitation evaluation. Primary Care Physician Unknown History of Present Illness Kim Miller is an 87-year-old [id number] male admitted to [facility] 10/09/17 after a fall at home/unresponsive. Patient was noted to have no pulse see chest compressions for approximately 2 minutes with return of pulse. Head CT was negative for acute abnormality. CTA showed occlusion of left ICA. Brain MRI 10/09/17 showed subtle areas of abnormal susceptibility weighted signal dropout in layering in the least 2 sulci on the left and a small area seen over the high left frontal cortex. These areas are consistent with small areas of acute subarachnoid hemorrhage. Small extra-axial collection measuring approximately 9 mm in thickness overlying the high right posterior parietal cortices. This is consistent with a small area of acute subdural hemorrhage. Follow-up MRI 10/10/17 showed: stable small volume left subarachnoid hemorrhage. Stable small right parietal subdural hematoma. Echocardiogram 10/10/17 showed left ventricular systolic function is mildly reduced with an estimated ejection fraction in the range of 45- 50%. Trace mitral valve regurgitation. Status-post percutaneous aortic valve replacement. Trace aortic valve regurgitation. There is mild tricuspid valve regurgitation. Review of Systems Constitutional: DENIES: Fatigue Eyes: DENIES: Diplopia Ears, nose, mouth, throat: DENIES: Throat pain Respiratory: DENIES: Shortness of breath Cardiovascular: DENIES: Chest pain Gastrointestinal: COMPLAINS OF: Constipation, DENIES: Abdominal pain, Diarrhea Genitourinary: DENIES: Urinary incontinence Musculoskeletal: DENIES: Back pain Integumentary: DENIES: Pruritus Hematologic/lymphatic: COMPLAINS OF: Bruising Immunologic/allergic: DENIES: Urticaria Neurologic: DENIES: Headache, Localized weakness, Paresthesias, Speech Problems Psychiatric: DENIES: Confusion Past Family Social History Allergies: Coded Allergies: niacin (Verified Allergy, Unknown, 10/09/17) sitagliptin (Unverified Adverse Reaction, Severe, STOMACH PAIN, 10/09/17) Past Medical History Atrial fibrillation with chronic anticoagulation with Coumadin Anemia History of stomach cancer History of cardiovascular issues Hypercholesterolemia Coronary artery disease Diabetes mellitus type 2 GERD History of benign prostatic hypertrophy Hiatal hernia Hypertension History of [place] Recent urosepsis History of kidney stones GERD BPH with prostate gland removal Past Surgical History Cardiac stenting coronary stenting Bilateral cataract surgery with lens extraction and implants Prostate surgery Tonsillectomy Prostate Nasal polyps Cholecystectomy 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 Current Medications Current Medications Medications (Trade) Dose Ordered Sig/Nella Route Start Time Stop Time Status Last Admin Sodium Chloride 1,000 ml @ 100 mls/hr Q10H IV 10/09/17 12:53 10/10/17 18:25 (Zovirax 5% Oint (15 Gm)) 1 applic 5 TIMES A DAY TOPICAL 10/09/17 15:00 10/10/17 18:27 (Zyloprim) 100 mg BID PO 10/09/17 21:00 10/10/17 08:19 (Lipitor) 40 mg HS PO 10/09/17 21:00 (Vitamin D3) 1,000 units DAILY PO 10/10/17 09:00 10/10/17 08:15 (Lotrimin 1% Cream) 1 applic Q12HR TOPICAL 10/09/17 21:00 (Proscar) 5 mg DAILY PO 10/10/17 09:00 10/10/17 08:16 (Folate) 1 mg DAILY PO 10/10/17 09:00 10/10/17 08:19 (Lasix) 40 mg BID@09,18 PO 10/09/17 18:00 10/10/17 18:27 (Prinivil) 10 mg DAILY PO 10/10/17 09:00 10/10/17 08:19 (Mag-Ox) 400 mg BID PO 10/09/17 21:00 10/10/17 08:19 (Lopressor) 12.5 mg Q12HR PO 10/09/17 21:00 10/10/17 08:19 (Miralax) 17 gm DAILY PRN PO 10/09/17 13:45 (KCl) 20 meq BID PO 10/09/17 21:00 10/10/17 08:21 (Vitamin B6) 100 mg DAILY PO 10/10/17 09:00 10/10/17 08:20 (Flomax) 0.4 mg DAILY PO 10/10/17 09:00 10/10/17 08:16 (Ferrous Sulfate) 325 mg BID PO 10/10/17 09:00 10/10/17 08:16 (D50w (Vial) Inj) 50 ml UNSCH PRN IV PUSH 10/09/17 13:45 (Glucagon Inj) 1 mg UNSCH PRN OTHER 10/09/17 13:45 (NovoLOG SUPPLEMENTAL SCALE) 1 ACHS SLIDING SCALE SQ 10/09/17 17:00 10/10/17 18:26 (NS Flush) 2 ml BID IV FLUSH 10/09/17 21:00 10/09/17 21:00 (NS Flush) 2 ml UNSCH PRN IV FLUSH 10/09/17 13:45 (Aspirin Supp) 300 mg DAILY RECTAL 10/09/17 14:30 10/10/17 08:31 (Tylenol) 650 mg Q4H PRN PO 10/09/17 13:45 (Zofran Inj) 4 mg Q6H PRN IVP 10/09/17 13:45 (Reglan Inj) 5 mg Q6H PRN IV PUSH 10/09/17 13:45 (Percocet 5-325 Mg) 1 tab Q6H PRN PO 10/09/17 13:45 (Percocet 10-325 Mg) 1 tab Q6H PRN PO 10/09/17 13:45 (Morphine Inj) 2 mg Q3H PRN IV PUSH 10/09/17 13:45 (Morphine Inj) 4 mg Q3H PRN IV PUSH 10/09/17 13:45 (Morphine Inj) 4 mg Q3H PRN IV PUSH 10/09/17 13:45 (Narcan Inj) 0.4 mg UNSCH PRN IV PUSH 10/09/17 13:45 (Ora-Colace) 1 tab BID PO 10/09/17 21:00 10/10/17 08:17 (Milk Of Magnesia Liq) 30 ml Q12H PRN PO 10/09/17 13:45 (Senokot) 17.2 mg Q12H PRN PO 10/09/17 13:45 (Dulcolax Supp) 10 mg DAILY PRN RECTAL 10/09/17 13:45 (Lactulose Liq) 30 ml DAILY PRN PO 10/09/17 13:45 (Pill Splitter) 1 ea UNSCH PRN OTHER 10/09/17 15:00 Cefazolin Sodium 2000 mg/Sodium Chloride 100 ml @ 200 mls/hr Q8H IV 10/09/17 16:00 10/10/17 18:13 Sodium Chloride 250 ml @ 15 mls/hr ONCE ONCE IV 10/10/17 09:00 10/11/17 01:39 (Lasix Inj) 20 mg UNSCH X1 PRN IV PUSH 10/10/17 09:00 10/10/17 21:00 Family History Hypertension Diabetes mellitus Social History Prior to admission patient ambulated within his home occasionally using a Rollator. He was independent with ADLs. He was with his in [place], [place]. No tobacco or alcohol history Exam I&O / VS 10/10/17 10/10/17 10/11/17 15:00 23:00 07:00 Intake Total 2 ml 400 ml Balance 2 ml 400 ml Packed Cells 400 ml Blood Product IV Normal Saline Flush 2 ml Vital Signs Date Time Temp Pulse Resp B/P (MAP) Pulse Ox O2 Delivery O2 Flow Rate FiO2 10/10/17 17:55 99 21 10/10/17 16:55 94 134/60 (84) 10/10/17 16:31 97.8 80 18 127/58 99 10/10/17 16:00 97.6 87 18 157/72 (100) 100 10/10/17 12:00 97.8 80 18 127/58 (81) 99 10/10/17 11:04 98.1 87 16 151/71 99 10/10/17 08:00 98.7 90 18 124/58 (80) 100 10/10/17 04:45 97.6 85 17 136/63 (87) 99 10/10/17 01:21 78 10/10/17 00:28 98.6 83 17 115/56 (75) 98 10/09/17 20:08 97.6 82 17 139/63 (88) 100 General: No acute distress Respiratory: Lungs CTA, Non-labored respirations, BS equal Gastrointestinal: Positive Bowel Sounds, Non-Distended, Non-Tender Cardiovascular: Normal rate, No edema, Regular Rhythm Skin: No rash, Other (Multiple areas of ecchymosis bilateral upper extremities) Psychiatric: Cooperative, Appropriate mood & affect Orientation: oriented to Self, oriented to Place, oriented to Time Neurologic: Cranial Nerves (Grossly intact 2 through 12), Pupils (PERRLA), EOM (Intact), Facial Symmetry (Symmetric), Speech (No dysarthria or word finding difficulties) Motor: Right Upper Extremity (4+5/5), Left Upper Extremity (4+5/5), Right Lower Extremity (4+5/5), Left Lower Extremity (4+5/5) Sensory Intact to light touch in both upper and lower extremities except for distal to the mid calf level bilaterally Clonus: Negative Assessment and Plan Diagnosis: (1) Subarachnoid hemorrhage ICD Codes: I60.9 - Nontraumatic subarachnoid hemorrhage, unspecified Status: Acute Plan 1. Discussed with physical therapy and patient is ambulating at baseline. Patient has walker at home for continued use. 2. Speech therapy has evaluated swallowing and no dysphagia is noted 3. Occupational therapy has evaluated ADLs and now contact-guard to min assist 4. Would recommend ongoing home health rehab services to address all mobility/ independence with ADLs. Discussed with patient's and nursing who will communicate with case management 5. Will follow while hospitalized in a discharge Thank you for this consult Antonette Means MD Oct 10, 2017 19:17
--- NOTE | 2017-10-10 19:17 | HHI.PR ---
Subjective Remarks Patient was admitted yesterday for suspicion of ischemic CVA. He is free of strokelike symptoms this morning does exhibit pervasive bruising, severe anemia , and evidence of intracranial and subdural bleed following old and new fall. Objective Vitals Vital Signs Date Time Temp Pulse Resp B/P (MAP) Pulse Ox O2 Delivery O2 Flow Rate FiO2 10/10/17 17:55 99 21 10/10/17 16:55 94 134/60 (84) 10/10/17 16:31 97.8 80 18 127/58 99 10/10/17 16:00 97.6 87 18 157/72 (100) 100 10/10/17 12:00 97.8 80 18 127/58 (81) 99 10/10/17 11:04 98.1 87 16 151/71 99 10/10/17 08:00 98.7 90 18 124/58 (80) 100 10/10/17 04:45 97.6 85 17 136/63 (87) 99 10/10/17 01:21 78 10/10/17 00:28 98.6 83 17 115/56 (75) 98 10/09/17 20:08 97.6 82 17 139/63 (88) 100 I/O 10/09/17 10/09/17 10/09/17 10/10/17 10/10/17 10/10/17 07:00 15:00 23:00 07:00 15:00 23:00 Intake Total 1250 ml 2 ml 400 ml Output Total 1300 ml Balance -50 ml 2 ml 400 ml Intake IV Total 1250 ml Packed Cells 400 ml Blood Product IV Normal Saline Flush 2 ml Output Urine Total 1300 ml # Voids 1 # Bowel Movements 1 Result Diagram: 10/10/17 0644 10/10/17 0644 Objective Remarks GENERAL: Well-nourished, well-developed patient. SKIN: Widespread bruising over both arms and right side of face HEAD: Normocephalic. EYES: No scleral icterus. No injection or drainage. Pupils equal round and reactive. Normal tracking. NECK: Supple, trachea midline. No JVD or lymphadenopathy. CARDIOVASCULAR: Regular rate and rhythm without murmurs, gallops, or rubs. RESPIRATORY: Breath sounds equal bilaterally. No accessory muscle use. GASTROINTESTINAL: Abdomen soft, non-tender, nondistended. EXTREMITIES: No cyanosis, or edema. NEUROLOGICAL: Awake, alert, and oriented x 3. No focal deficits. Strength is equal bilaterally. Patient is ambulatory and balance. A/P Problem List: (1) Anemia ICD Code: D64.9 - Anemia, unspecified (2) Hematuria ICD Code: R31.9 - Hematuria, unspecified (3) Warfarin-induced coagulopathy ICD Code: D68.32 - Hemorrhagic disorder due to extrinsic circulating 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; T45.515A - Adverse effect of 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, initial encounter (4) Elevated INR ICD Code: R79.1 - Abnormal coagulation profile Status: Acute (5) Atrial fibrillation ICD Code: I48.91 - Atrial fibrillation Status: Acute Assessment and Plan Syncopal episode Patient presented to the ER following fall and unresponsiveness. 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 Patient is typed and crossed and receiving 2 units of blood currently. His anemia is the most likely underlying cause of his syncopal episode By his history he has been having periodic hematuria which may account for his losses His Coumadin is slightly toxic and needs to be held until INR is reduced We will recheck hemoglobin in the a.m. Hematuria A few clots produced in his urine today, INR still elevated Recommend following until blood transfusions are completed and INR has a chance to reduce We will consult urology if bleeding persists, otherwise recommend outpatient follow-up in the next few weeks if bleeding stops Atrial fibrillation, artificial valve (pig) Coumadin held due to mild toxicity and active bleeding Risk of intracranial bleed outweighs risk of ischemic stroke at this time Subarachnoid and subdural bleeds Subdural seems old subarachnoid seems new, both are consistent with recent falls Likely exacerbated by supratherapeutic state of Coumadin Coumadin held, will consider repeat scans if any neurological symptoms worsen Type 2 diabetes Sliding scale insulin with regular Accu-Cheks Diabetic diet Recent systemic infection Continue Ancef 2 g IV every 8 hours Benign prostatic hypertrophy Continue Flomax and finasteride Hypertension Continue home medications 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
[2017-10-10] MEDS: ATORVASTATIN 40 MG TAB PO SCH (20:11)
--- NOTE | 2017-10-10 20:17 | EKG ---
Date Performed: 10/09/2017 Time Performed: 12:13:01 PTAGE: 87 years EKG: ATRIAL FIBRILLATION LOW QRS VOLTAGE Since previous tracing, no significant change noted ABN ORMAL ECG PREVIOUS TRACING : 08/28/2017 07.07.56 DOCTOR: Cedric Holly Interpretating Date/Time 10/13/2017 07:05:40
--- NOTE | 2017-10-10 20:35 | MB ---
cc: Adan Cee MD DATE: 10/10/2017 REASON FOR CONSULTATION: The patient with a history of neuroendocrine tumor, history of TAVR who presents with acute stroke. HISTORY OF PRESENT ILLNESS: Mr. Miller is an 87-year-old male who has a history of neuroendocrine tumor. He is under observation from this standpoint. He has a history of iron deficiency anemia, chronic kidney disease, chronic thrombocytopenia with a platelet count in the 90,000 to 100,000 range. He has undergone TAVR procedure recently at [facility]. He was on anticoagulation with Coumadin. He now presents to the emergency department after he had syncope and possibly cardiac arrest. He fell to the floor. EMS was called. CPR was performed. He was resuscitated successfully. He was brought to the emergency room. He was found to have right-sided weakness and aphasia. A stroke alert was called. On arrival, he had a CT scan of the head as well as an MRI. The MRI revealed acute subarachnoid hemorrhage. There was a small extraaxial collection of 9 mm in thickness involving the high right posterior parietal cortices. The patient also had a neck CTA which showed a complete occlusion of the left internal carotid artery. There was also focal moderate stenosis of the right internal carotid artery approximately 1 cm above the origin. The patient has been seen by neurology. He is found to be too high risk for thrombectomy. He has a left ICA occlusion as stated above. Hematology has been consulted to make further recommendations regarding anticoagulation. REVIEW OF SYSTEMS: A comprehensive review of system was completed which is negative except as described in HPI. PAST MEDICAL HISTORY: History of neuroendocrine tumor, status post TAVR, history of CAD, hyperlipidemia, diabetes type 2, GERD, BPH, hiatal hernia, hypertension. PAST SURGICAL HISTORY: Coronary stenting, bilateral cataract surgery, prostate surgery, tonsillectomy, cholecystectomy, status post TAVR. FAMILY HISTORY: Reviewed and this is noncontributory to this admission. SOCIAL HISTORY: He lives with his . He does not smoke cigarettes. No alcohol abuse. No illicit drug use. PHYSICAL EXAMINATION: VITAL SIGNS: Blood pressure is 134/60, pulse in the 90s, temperature is 97.8, O2 saturations are 99%, FiO2 of 21, but currently he is without any oxygen. GENERAL: Well-developed, elderly male who appears acutely ill. HEENT: There is bruising on the right eye secondary to fall. NECK: Supple. No JVD. CARDIAC: S1, S2. Regular rate and rhythm. CHEST: Clear to auscultation bilaterally. ABDOMEN: Soft, nontender, nondistended. Bowel sounds are present. EXTREMITIES: Without any edema, erythema or cyanosis. SKIN: Without any petechial lesions, or bruises. NEUROLOGIC: No focal deficits. PSYCHIATRIC: Mood and affect are appropriate. LABORATORY DATA: WBC is 3, hemoglobin is 6.5, platelet count is 68,000. Sodium is 140, potassium is 4, chloride is 108, CO2 is 22.5, BUN is 45, creatinine is 1.72, calcium is 8.5, phosphorus ____, magnesium 2, total bilirubin 1, AST is 102, ALT is 10, alkaline phosphatase is 225, albumin is 2.7. IMAGING: Reviewed in the HPI. ASSESSMENT AND PLAN: This is an 87-year-old male who has a history of neuroendocrine tumor, history of thrombocytopenia and anemia. Recently, he had a transcatheter aortic valve replacement procedure and was on Coumadin. He presents to the emergency room with syncope and possible cardiac arrest, status post cardiorespiratory resuscitation. 1. Syncopal event/left internal carotid artery occlusion. On imaging there is also a subarachnoid hemorrhage which is possibly because of the fall while on anticoagulation. Neurology is following this patient. He would need a vascular surgery consult regarding his left internal carotid artery. He is having significant hematuria and his hemoglobin has dropped and also in the presence of subarachnoid hemorrhage, anticoagulation is contraindicated. This is a difficult situation in a patient who has had transcatheter aortic valve replacement and now has bleeding complications as above. 2. Anemia with a hemoglobin of 6.5. He received 1 unit of packed red blood cells earlier. Another unit has been ordered, but has not been transfused. Will need to monitor his hemoglobin closely. Will transfuse for hemoglobin of less than 8. 3. Coumadin-induced coagulopathy with INR, which is 4.9 and bleeding. I will give him 1 unit of fresh frozen plasma and check coagulation studies on a daily basis. 4. History of thrombocytopenia. Platelet count of 68,000. This is acute on chronic thrombocytopenia. His platelet counts in the past have fluctuated between 60,000 to 100,000. Will continue to monitor. Thank you for allowing me to participate in the care of this patient. The hematology team will continue to follow this patient along. . Adan Cee MD AMK/rt , 07:29 PM , 08:34 PM
[2017-10-10] MEDS ORDERED: diphenhydrAMINE HCL 25 MG CAP PO ONE (22:45)
[2017-10-10] MEDS ORDERED: ACETAMINOPHEN 325 MG TAB PO ONE (22:45)
[2017-10-11] VITALS (13 sets, daily range): BP systolic 107–145; BP diastolic 52–83; PULSE 62–100; RESP 16–21; TEMP 97.3–98.3; O2SAT 94–100
[2017-10-11] MEDS: SODIUM CHLOR 0.9% 1000 ML INJ 1,000 ML IV SCH ×2 (04:53→14:44)
[2017-10-11] MEDS: ACYCLOVIR 5% OINT 15 APPLIC/15 GM TUBE TOPICAL SCH ×5 (06:00→22:01)
[2017-10-11 06:40] LABS: BASOPHIL # 0.1 TH/MM3 (0-0.2); BASOPHIL % 1.4 % (0.0-2.0); EOSINOPHIL # 0.1 TH/MM3 (0-0.4); EOSINOPHIL % 2.3 % (0.0-4.0); HEMATOCRIT 23.2 % (39.0-51.0); HEMOGLOBIN 8.1 GM/DL (13.0-17.0); LYMPH % 7.1 % (9.0-44.0); LYMPHOCYTE # 0.3 TH/MM3 (1.0-4.8); MEAN CELL VOLUME 94.5 FL (80.0-100.0); MEAN CORPUSCULAR HEMOGLOBIN 32.8 PG (27.0-34.0); MEAN CORPUSCULAR HGB CONC 34.7 % (32.0-36.0); MEAN PLATELET VOLUME 10.2 FL (7.0-11.0); MONO % 8.7 % (0.0-8.0); MONOCYTE # 0.3 TH/MM3 (0-0.9); NEUT % 80.5 % (16.0-70.0); PLATELET COUNT 64 TH/MM3 (150-450); RED BLOOD COUNT 2.46 MIL/MM3 (4.50-5.90); RED CELL DISTRIBUTION WIDTH 19.2 % (11.6-17.2); WHITE BLOOD COUNT 3.7 TH/MM3 (4.0-11.0)
[2017-10-11 06:58] LABS: BICARBONATE 25.3 MEQ/L (21.0-32.0); CALCIUM 8.8 MG/DL (8.5-10.1); CREATININE 1.55 MG/DL (0.60-1.30); INTERNATIONAL NORMALIZED RATIO 2.1 RATIO; PROTHROMBIN TIME - PATIENT 21.1 SEC (9.8-11.6)
[2017-10-11] MEDS: DOCUSATE SODIUM 50 MG/SENNA 8.6 MG TAB PO SCH ×2 (08:54→21:57)
[2017-10-11] MEDS: FOLIC ACID 1 MG TAB PO SCH (08:55)
[2017-10-11] MEDS: METOPROLOL TARTRATE 25 MG TAB PO SCH ×2 (08:55→21:57)
[2017-10-11] MEDS: FERROUS SULFATE 325 MG (65 MG ELEMENTAL IRON) TAB PO SCH ×2 (08:56→21:57)
[2017-10-11] MEDS: TAMSULOSIN HCL 0.4 MG CAP PO SCH (08:56)
[2017-10-11] MEDS: FUROSEMIDE 40 MG TAB PO SCH ×2 (08:56→18:01)
[2017-10-11] MEDS: POTASSIUM CHLORIDE 20 MEQ CONTROLLED RELEASE TAB PO SCH ×2 (08:56→21:58)
[2017-10-11] MEDS: CHOLECALCIFEROL (VIT D3) 1000 UNIT TAB PO SCH (08:56)
[2017-10-11] MEDS: PYRIDOXINE HCL 50 MG TAB PO SCH (08:56)
[2017-10-11] MEDS: FINASTERIDE 5 MG TAB PO SCH (08:57)
[2017-10-11] MEDS: LISINOPRIL 10 MG TAB PO SCH (08:57)
[2017-10-11] MEDS: MAGNESIUM OXIDE 400 MG TAB PO SCH ×2 (08:57→21:57)
[2017-10-11] MEDS: ALLOPURINOL 100 MG TAB PO SCH ×2 (08:57→21:57)
[2017-10-11] MEDS: ASPIRIN 300 MG SUPP RECTAL SCH (08:58)
[2017-10-11] MEDS: SODIUM CHLORIDE 0.9% FLUSH 10 ML FLUSH IV FLUSH SCH ×2 (08:58→21:00)
[2017-10-11] MEDS: CLOTRIMAZOLE 1% CREAM 15 GM TOPICAL SCH ×2 (08:58→22:01)
[2017-10-11] MEDS: INSULIN ASPART SUPPLEMENTAL SCALE SQ SCH ×4 (08:59→23:01)
[2017-10-11 09:37] LABS: OVALOCYTES 1+ (NORMAL)
[2017-10-11 09:39] LABS: ACANTHOCYTES OCC (NORMAL)
--- NOTE | 2017-10-11 10:22 | PD.ONC.PN ---
Subjective Subjective Remarks Afebrile overnight Patient reports he is feeling better Feels like his strength is increased on the right side No longer having obvious hematuria Objective Data Date Time Temp Pulse Resp B/P (MAP) Pulse Ox O2 Delivery O2 Flow Rate FiO2 10/11/17 08:00 97.3 87 18 130/69 (89) 98 10/11/17 04:00 97.5 90 21 132/62 (85) 96 10/11/17 03:08 98.3 84 18 119/83 96 10/11/17 00:21 97.3 84 16 116/78 94 10/11/17 00:06 98.2 81 16 145/52 98 10/11/17 00:00 82 10/10/17 20:00 98.3 85 20 147/58 (87) 99 10/10/17 20:00 85 10/10/17 17:55 99 21 10/10/17 16:55 94 134/60 (84) 10/10/17 16:31 97.8 80 18 127/58 99 10/10/17 16:00 97.6 87 18 157/72 (100) 100 10/10/17 12:00 97.8 80 18 127/58 (81) 99 10/10/17 11:04 98.1 87 16 151/71 99 10/11/17 10/11/17 10/11/17 07:00 15:00 23:00 Intake Total 577 ml Output Total 200 ml Balance 377 ml Result Diagram: 10/11/1718 10/11/17 0618 Laboratory Results Laboratory Tests Test 10/11/17 06:18 White Blood Count 3.7 TH/MM3 Red Blood Count 2.46 MIL/MM3 Hemoglobin 8.1 GM/DL Hematocrit 23.2 % Mean Corpuscular Volume 94.5 FL Mean Corpuscular Hemoglobin 32.8 PG Mean Corpuscular Hemoglobin Concent 34.7 % Red Cell Distribution Width 19.2 % Platelet Count 64 TH/MM3 Mean Platelet Volume 10.2 FL Neutrophils (%) (Auto) 80.5 % Lymphocytes (%) (Auto) 7.1 % Monocytes (%) (Auto) 8.7 % Eosinophils (%) (Auto) 2.3 % Basophils (%) (Auto) 1.4 % Neutrophils # (Auto) 3.0 TH/MM3 Lymphocytes # (Auto) 0.3 TH/MM3 Monocytes # (Auto) 0.3 TH/MM3 Eosinophils # (Auto) 0.1 TH/MM3 Basophils # (Auto) 0.1 TH/MM3 CBC Comment AUTO DIFF Differential Comment AUTO DIFF CONFIRMED Platelet Estimate LOW Platelet Morphology Comment NORMAL Ovalocytes 1+ Acanthocytes OCC Prothrombin Time 21.1 SEC Prothromb Time International Ratio 2.1 RATIO Blood Urea Nitrogen 41 MG/DL Creatinine 1.55 MG/DL Random Glucose 148 MG/DL Calcium Level 8.8 MG/DL Sodium Level 140 MEQ/L Potassium Level 4.0 MEQ/L Chloride Level 106 MEQ/L Carbon Dioxide Level 25.3 MEQ/L Anion Gap 9 MEQ/L Estimat Glomerular Filtration Rate 43 ML/MIN Administered Medications Medications (Trade) Dose Ordered Sig/Nella Route PRN Reason Start Time Stop Time Status Last Admin Dose Admin Sodium Chloride 1,000 ml @ 100 mls/hr Q10H IV 10/09/17 12:53 10/10/17 18:25 Acyclovir (Zovirax 5% Oint (15 Gm)) 1 applic 5 TIMES A DAY TOPICAL 10/09/17 15:00 10/11/17 08:58 Allopurinol (Zyloprim) 100 mg BID PO 10/09/17 21:00 10/11/17 08:57 Atorvastatin Calcium (Lipitor) 40 mg HS PO 10/09/17 21:00 10/10/17 20:11 Cholecalciferol (Vitamin D3) 1,000 units DAILY PO 10/10/17 09:00 10/11/17 08:56 Clotrimazole (Lotrimin 1% Cream) 1 applic Q12HR TOPICAL 10/09/17 21:00 10/11/17 08:58 Finasteride (Proscar) 5 mg DAILY PO 10/10/17 09:00 10/11/17 08:57 Folic Acid (Folate) 1 mg DAILY PO 10/10/17 09:00 10/11/17 08:55 Furosemide (Lasix) 40 mg BID@ PO 10/09/17 18:00 10/11/17 08:56 Lisinopril (Prinivil) 10 mg DAILY PO 10/10/17 09:00 10/11/17 08:57 Magnesium Oxide (Mag-Ox) 400 mg BID PO 10/09/17 21:00 10/11/17 08:57 Metoprolol Tartrate (Lopressor) 12.5 mg Q12HR PO 10/09/17 21:00 10/11/17 08:55 Potassium Chloride (KCl) 20 meq BID PO 10/09/17 21:00 10/11/17 08:56 Pyridoxine HCl (Vitamin B6) 100 mg DAILY PO 10/10/17 09:00 10/11/17 08:56 Tamsulosin HCl (Flomax) 0.4 mg DAILY PO 10/10/17 09:00 10/11/17 08:56 Ferrous Sulfate (Ferrous Sulfate) 325 mg BID PO 10/10/17 09:00 10/11/17 08:56 Insulin Aspart (NovoLOG SUPPLEMENTAL SCALE) 1 ACHS SLIDING SCALE SQ 10/09/17 17:00 10/11/17 08:59 Sodium Chloride (NS Flush) 2 ml BID IV FLUSH 10/09/17 21:00 10/10/17 20:12 Aspirin (Aspirin Supp) 300 mg DAILY RECTAL 10/09/17 14:30 10/11/17 08:58 Senna/Docusate Sodium (Ora-Colace) 1 tab BID PO 10/09/17 21:00 10/11/17 08:54 Cefazolin Sodium 2000 mg/Sodium Chloride 100 ml @ 200 mls/hr Q8H IV 10/09/17 16:00 10/11/17 09:12 Objective Remarks GENERAL: Overweight elderly male with multiple hematomas but otherwise alert resting in bed with spouse at bedside SKIN: Multiple bruising HEAD: Normocephalic. Right eye hematoma EYES: No injection or drainage. NECK: Supple, trachea midline. CARDIOVASCULAR: Regular rate and rhythm without murmurs. RESPIRATORY: Breath sounds equal bilaterally. No accessory muscle use. GASTROINTESTINAL: Abdomen soft, non-tender, nondistended. EXTREMITIES: No cyanosis MUSCULOSKELETAL: Adequate muscle tone. NEUROLOGICAL: Right probation officer only mildly weaker than the left. Normal speech. Moving all extremities. Assessment/Plan Problem List: (1) S/P TAVR (transcatheter aortic valve replacement) ICD Codes: Z95.2 - Presence of prosthetic heart valve Plan: --Had surgery on 08/27 (2) Anemia ICD Codes: D64.9 - Anemia, unspecified Plan: -- Had significant hematuria and hemoglobin was 6.5 on 10/10 and 1 unit of packed red blood cells was given. --Transfuse to keep hemoglobin greater than 8 (3) Hematuria ICD Codes: R31.9 - Hematuria, unspecified Status: Resolved Plan: --Currently resolved --Continue to monitor (4) Elevated INR ICD Codes: R79.1 - Abnormal coagulation profile Status: Acute Plan: --Status post 2 units of FFP --INR currently 2.1 --No further bleeding --Coumadin on hold (5) Thrombocytopenia ICD Codes: D69.6 - Thrombocytopenia, unspecified Plan: --Acute on chronic thrombocytopenia --Normal range 90-100,000 (6) Subarachnoid hemorrhage ICD Codes: I60.9 - Nontraumatic subarachnoid hemorrhage, unspecified Plan: --Likely due to fall from syncopal episode while on anticoagulation --Monitor for headache Assessment 87 y/o male with recent TAVR admitted after a syncopal episode; he was found to have a subarachnoid hemorrhage with thrombocytopenia and coagulopathy Plan 1. Would recommend to hold aspirin if his platelet counts drop less than 50, 000 or for any more bleeding 2. Monitor neurological symptoms 3. Hold anticoagulation at this time 4. Monitor CBC Attending Statement The exam, history, and the medical decision-making described in the above note were completed with the assistance of the mid-level provider. I reviewed and agree with the findings presented. I attest that I had a [id number] encounter with the patient on the same day, and personally performed and documented my assessment and findings in the medical record. subdural/subarachnoid bleed: currently holding warfarin therapy. NSGY and neurology following. TAVR in 08/2017: holding warfarin therapy syncopal episode, CVA with carotid occlusion: on ASA 300 mg. Left maxillary sinus abnormality and mediastinal adenopathy: will need dedicated CT maxface and CT thorax once renal function improves Cytopenia: s/p 2 units of PRBC. Baseline TCP with worsening TCP, leukopenia and anemia since TAVR. Likely some degree of hemolysis. ADAMTS 13 is negative from previous hospital stay. Acute blood loss anemia due to fall. Continue to trend counts closely. If continue to fall would discontinue ASA. Difficult situation in an elderly man with complicated history of TAVR, chronic anticoagulation, fall, and CVA/carotid artery occulsion. Danika Boston Oct 11, 2017 10:22 Jacy Ta MD Oct 11, 2017 17:43
--- NOTE | 2017-10-11 15:09 | HHI.PR ---
Subjective Remarks Patient states that his hematuria has stopped overnight. He is feeling more energetic following 2 units of packed red blood cells. He has no new complaints. Objective Vitals Vital Signs Date Time Temp Pulse Resp B/P (MAP) Pulse Ox O2 Delivery O2 Flow Rate FiO2 10/11/17 12:00 97.6 64 18 107/53 (71) 100 10/11/17 08:00 97.3 87 18 130/69 (89) 98 10/11/17 04:00 97.5 90 21 132/62 (85) 96 10/11/17 03:08 98.3 84 18 119/83 96 10/11/17 00:21 97.3 84 16 116/78 94 10/11/17 00:06 98.2 81 16 145/52 98 10/11/17 00:00 82 10/10/17 20:00 98.3 85 20 147/58 (87) 99 10/10/17 20:00 85 10/10/17 17:55 99 21 10/10/17 16:55 94 134/60 (84) 10/10/17 16:31 97.8 80 18 127/58 99 10/10/17 16:00 97.6 87 18 157/72 (100) 100 I/O 10/10/17 10/10/17 10/10/17 10/11/17 10/11/17 10/11/17 07:00 15:00 23:00 07:00 15:00 23:00 Intake Total 1250 ml 2 ml 810 ml 577 ml Output Total 1300 ml 200 ml Balance -50 ml 2 ml 810 ml 377 ml Intake Oral 240 ml IV Total 1250 ml 100 ml Packed Cells 800 ml FFP 217 ml Blood Product IV Normal Saline Flush 2 ml 10 ml 20 ml Output Urine Total 1300 ml 200 ml # Voids 1 3 # Bowel Movements 1 0 Result Diagram: 10/11/1718 10/11/17617 Objective Remarks GENERAL: Well-nourished, well-developed patient. SKIN: Widespread bruising over both arms and right side of face HEAD: Normocephalic. EYES: No scleral icterus. No injection or drainage. Pupils equal round and reactive. Normal tracking. NECK: Supple, trachea midline. No JVD or lymphadenopathy. CARDIOVASCULAR: Regular rate and rhythm without murmurs, gallops, or rubs. RESPIRATORY: Breath sounds equal bilaterally. No accessory muscle use. GASTROINTESTINAL: Abdomen soft, non-tender, nondistended. EXTREMITIES: No cyanosis, or edema. NEUROLOGICAL: Awake, alert, and oriented x 3. No focal deficits. Strength is equal bilaterally. Patient is ambulatory and balance. A/P Problem List: (1) Anemia ICD Code: D64.9 - Anemia, unspecified (2) Hematuria ICD Code: R31.9 - Hematuria, unspecified Status: Resolved (3) Warfarin-induced coagulopathy ICD Code: D68.32 - Hemorrhagic disorder due to extrinsic circulating 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; T45.515A - Adverse effect of 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, initial encounter (4) Elevated INR ICD Code: R79.1 - Abnormal coagulation profile Status: Acute (5) Atrial fibrillation ICD Code: I48.91 - Atrial fibrillation Status: Acute Assessment and Plan Syncopal episode Patient presented to the ER following fall and unresponsiveness. Differential at the time included NC or CVA, but further workup reveals severe anemia Multiple MRI, MRA, CT scans of the brain demonstrate small subarachnoid hemorrhage and small, old subdural hemorrhage consistent with previous falls He has complete obstruction at the origin of the left internal carotid artery, 50-60% stenosis of the right carotid artery, nature of appearance is suspicious for mediastinal adenopathy, CT thorax recommended by radiology Continue PT and OT, speech and swallowing are okay Appreciate neurology consult Appreciate neurosurgery consult Severe anemia Hemoglobin was 6.5 on admission. Patient is typed and crossed and receiving 2 units of blood currently. His anemia is the most likely underlying cause of his syncopal episode By his history he has been having periodic hematuria which may account for his losses His Coumadin is slightly toxic and needs to be held until INR is reduced We will recheck hemoglobin in the a.m. and transfuse further if needed Hematuria INR is at 2.1 today Hematuria has resolved Atrial fibrillation, artificial valve (pig) Coumadin held due to mild toxicity and active bleeding Risk of intracranial bleed outweighs risk of ischemic stroke at this time Subarachnoid and subdural bleeds Subdural seems old subarachnoid seems new, both are consistent with recent falls Likely exacerbated by supertherapeutic state of Coumadin Coumadin held, will consider repeat scans if any neurological symptoms worsen Type 2 diabetes Sliding scale insulin with regular Accu-Cheks Diabetic diet Recent systemic infection Continue Ancef 2 g IV every 8 hours Benign prostatic hypertrophy Continue Flomax and finasteride Hypertension Continue home medications 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
--- NOTE | 2017-10-11 16:39 | HHI.PR ---
Review/Management Daily Summary 10/11 alert and pleasant no distress no hemiparesis imaging and hemo consult seen no coumadin for now dr Galarza back Friday Subjective Subjective Comments No acute events reported No headache Active Medications Current Medications Medications (Trade) Dose Ordered Sig/Nella Route Start Time Stop Time Status Last Admin Sodium Chloride 1,000 ml @ 100 mls/hr Q10H IV 10/09/17 12:53 10/11/17 14:44 (Zovirax 5% Oint (15 Gm)) 1 applic 5 TIMES A DAY TOPICAL 10/09/17 15:00 10/11/17 08:58 (Zyloprim) 100 mg BID PO 10/09/17 21:00 10/11/17 08:57 (Lipitor) 40 mg HS PO 10/09/17 21:00 10/10/17 20:11 (Vitamin D3) 1,000 units DAILY PO 10/10/17 09:00 10/11/17 08:56 (Lotrimin 1% Cream) 1 applic Q12HR TOPICAL 10/09/17 21:00 10/11/17 08:58 (Proscar) 5 mg DAILY PO 10/10/17 09:00 10/11/17 08:57 (Folate) 1 mg DAILY PO 10/10/17 09:00 10/11/17 08:55 (Lasix) 40 mg BID@18 PO 10/09/17 18:00 10/11/17 08:56 (Prinivil) 10 mg DAILY PO 10/10/17 09:00 10/11/17 08:57 (Mag-Ox) 400 mg BID PO 10/09/17 21:00 10/11/17 08:57 (Lopressor) 12.5 mg Q12HR PO 10/09/17 21:00 10/11/17 08:55 (Miralax) 17 gm DAILY PRN PO 10/09/17 13:45 (KCl) 20 meq BID PO 10/09/17 21:00 10/11/17 08:56 (Vitamin B6) 100 mg DAILY PO 10/10/17 09:00 10/11/17 08:56 (Flomax) 0.4 mg DAILY PO 10/10/17 09:00 10/11/17 08:56 (Ferrous Sulfate) 325 mg BID PO 10/10/17 09:00 10/11/17 08:56 (D50w (Vial) Inj) 50 ml UNSCH PRN IV PUSH 10/09/17 13:45 (Glucagon Inj) 1 mg UNSCH PRN OTHER 10/09/17 13:45 (NovoLOG SUPPLEMENTAL SCALE) 1 ACHS SLIDING SCALE SQ 10/09/17 17:00 10/11/17 12:47 (NS Flush) 2 ml BID IV FLUSH 10/09/17 21:00 10/10/17 20:12 (NS Flush) 2 ml UNSCH PRN IV FLUSH 10/09/17 13:45 (Aspirin Supp) 300 mg DAILY RECTAL 10/09/17 14:30 10/11/17 08:58 (Tylenol) 650 mg Q4H PRN PO 10/09/17 13:45 (Zofran Inj) 4 mg Q6H PRN IVP 10/09/17 13:45 (Reglan Inj) 5 mg Q6H PRN IV PUSH 10/09/17 13:45 (Percocet 5-325 Mg) 1 tab Q6H PRN PO 10/09/17 13:45 (Percocet 10-325 Mg) 1 tab Q6H PRN PO 10/09/17 13:45 (Morphine Inj) 2 mg Q3H PRN IV PUSH 10/09/17 13:45 (Morphine Inj) 4 mg Q3H PRN IV PUSH 10/09/17 13:45 (Morphine Inj) 4 mg Q3H PRN IV PUSH 10/09/17 13:45 (Narcan Inj) 0.4 mg UNSCH PRN IV PUSH 10/09/17 13:45 (Ora-Colace) 1 tab BID PO 10/09/17 21:00 10/11/17 08:54 (Milk Of Magnesia Liq) 30 ml Q12H PRN PO 10/09/17 13:45 (Senokot) 17.2 mg Q12H PRN PO 10/09/17 13:45 (Dulcolax Supp) 10 mg DAILY PRN RECTAL 10/09/17 13:45 (Lactulose Liq) 30 ml DAILY PRN PO 10/09/17 13:45 (Pill Splitter) 1 ea UNSCH PRN OTHER 10/09/17 15:00 Cefazolin Sodium 2000 mg/Sodium Chloride 100 ml @ 200 mls/hr Q8H IV 10/09/17 16:00 10/11/17 15:49 Allergies Allergies Coded Allergies niacin (Verified Allergy, Unknown, 10/09/17) sitagliptin (Unverified Adverse Reaction, Severe, STOMACH PAIN, 10/09/17) Exam I&O / VS Vital Signs Date Time Temp Pulse Resp B/P (MAP) Pulse Ox O2 Delivery O2 Flow Rate FiO2 10/11/17 12:00 97.6 64 18 107/53 (71) 100 10/11/17 08:00 97.3 87 18 130/69 (89) 98 10/11/17 04:00 97.5 90 21 132/62 (85) 96 10/11/17 03:08 98.3 84 18 119/83 96 10/11/17 00:21 97.3 84 16 116/78 94 10/11/17 00:06 98.2 81 16 145/52 98 10/11/17 00:00 82 10/10/17 20:00 98.3 85 20 147/58 (87) 99 10/10/17 20:00 85 10/10/17 17:55 99 21 10/10/17 16:55 94 134/60 (84) Objective Radiology Results Last 48 hours Impressions Brain MRI 10/10/17 0900 Signed Impressions: Service Date/Time: Tuesday, October 10, 2017 08:44 - CONCLUSION: 1. Stable small volume left subarachnoid hemorrhage. 2. Stable small right parietal subdural hematoma. 3. Mass associated with the left maxillary sinus needs further characterization utilizing a CT of the facial bones. Matt Castañeda Jr., MD [facility] Laboratory Tests Test 10/11/17 06:18 White Blood Count 3.7 Red Blood Count 2.46 Hemoglobin 8.1 Hematocrit 23.2 Mean Corpuscular Volume 94.5 Mean Corpuscular Hemoglobin 32.8 Mean Corpuscular Hemoglobin Concent 34.7 Red Cell Distribution Width 19.2 Platelet Count 64 Mean Platelet Volume 10.2 Neutrophils (%) (Auto) 80.5 Lymphocytes (%) (Auto) 7.1 Monocytes (%) (Auto) 8.7 Eosinophils (%) (Auto) 2.3 Basophils (%) (Auto) 1.4 Neutrophils # (Auto) 3.0 Lymphocytes # (Auto) 0.3 Monocytes # (Auto) 0.3 Eosinophils # (Auto) 0.1 Basophils # (Auto) 0.1 CBC Comment AUTO DIFF Differential Comment AUTO DIFF CONFIRMED Platelet Estimate LOW Platelet Morphology Comment NORMAL Ovalocytes 1+ Acanthocytes OCC Prothrombin Time 21.1 Prothromb Time International Ratio 2.1 Blood Urea Nitrogen 41 Creatinine 1.55 Random Glucose 148 Calcium Level 8.8 Sodium Level 140 Potassium Level 4.0 Chloride Level 106 Carbon Dioxide Level 25.3 Anion Gap 9 Estimat Glomerular Filtration Rate 43 Dhruv Devine MD Oct 11, 2017 16:39
--- NOTE | 2017-10-11 19:41 | HHI.NSPN ---
History Interval History Patient reports doing well. Offers no complaints Exam Results Vital Signs Date Time Temp Pulse Resp B/P (MAP) Pulse Ox O2 Delivery O2 Flow Rate FiO2 10/11/17 16:00 97.5 70 18 113/56 (75) 99 10/10/17 17:55 21 10/09/17 17:30 Room Air 10/09/17 12:19 15.00 Intake and Output 10/11/17 10/11/17 10/12/17 08:00 16:00 00:00 Intake Total 577 ml Output Total 200 ml Balance 377 ml Physical Examination Alert and awake. Fluent speech. Affect normal and appropriate. Follows commands well Moves all extremities well Medical Decision Making Impression and Plan Patient appears stable and doing well No neurosurgical intervention needed Kris Hall MD Oct 11, 2017 19:41
--- NOTE | 2017-10-11 19:42 | MB ---
cc: Kris HUSSEIN DATE: 10/10/2017 CHIEF COMPLAINT: Fall. HISTORY OF PRESENT ILLNESS: This is an 87-year-old male patient with multiple medical problems who was brought to the emergency room after a fall at home in the bathroom. He apparently was given CPR at the time and it was noted that he was not moving his right side well. He underwent evaluation in the emergency room and initial diagnosis of stroke was made. The patient was placed on monitoring and because of findings on the MRI, neurosurgery consult has been placed. PAST MEDICAL HISTORY: Remarkable for atrial fibrillation on chronic anticoagulation with Coumadin, anemia, stomach cancer, hypercholesterolemia, coronary artery disease, diabetes type 2, GERD, BPH, hiatal hernia, hypertension, history of past IA, history of kidney stones, and GERD. PAST SURGICAL HISTORY: Remarkable for cardiac stenting, bilateral cataract surgery, prostate surgery, tonsillectomy, removal of nasal polyp, cholecystectomy and TAVR on chronic Coumadin. MEDICATIONS: Include: 1. Flomax. 2. Furosemide. 3. Acyclovir. 4. Clotrimazole. 5. Potassium chloride. 6. Lisinopril. 7. Metoprolol. 8. Folic acid. 9. Atorvastatin. 10. Aspirin. ALLERGIES: APPARENTLY TO NIACIN AND SITAGLIPTIN. FAMILY HISTORY: Remarkable for hypertension and diabetes. SOCIAL HISTORY: Reveals that he does not use any tobacco, alcohol or illegal drugs. PHYSICAL EXAMINATION: VITAL SIGNS: Blood pressure 151/73, respiratory rate of 20, pulse of 84, temperature of 97.6. GENERAL: Shows a well-developed, well-nourished male. HEENT: Unremarkable. NECK: Supple with good carotid pulses bilaterally. CHEST: Symmetric. LUNGS: Clear. HEART: Shows somewhat of an irregular rhythm with normal heart sounds. ABDOMEN: Soft and nontender. EXTREMITIES: Clear. NEUROLOGIC: The patient is alert and awake. He follows commands. His speech is somewhat halting but is improving. He is oriented x 3. Cranial nerves 2-12 are intact. Motor exam appears to be a 5-/5 in all extremities. Sensory system is intact to touch. Deep tendon reflexes are trace at all sites. IMAGING STUDIES: Review of a CT scan from 10/09/2017 showed significant motion. No apparent abnormal findings except for some cortical atrophy. An MRI of the brain from 10/10/2017 showed evidence of areas of left subarachnoid hemorrhage and evidence of a small right parietal subdural hematoma with little mass effect. ASSESSMENT AND PLAN: Overall impression is that of a small subdural secondary to a possible head injury. The patient appears to be improving in terms of neurological status. No neurosurgical intervention is needed at the present time. Kris SKAGGS/LAWANDA , 04:29 PM , 07:41 PM MTDD
[2017-10-11] MEDS: ATORVASTATIN 40 MG TAB PO SCH (21:57)
[2017-10-12] VITALS (11 sets, daily range): BP systolic 101–156; BP diastolic 56–82; PULSE 64–107; RESP 18–20; TEMP 97.3–98.7; O2SAT 97–100
[2017-10-12] MEDS: SODIUM CHLOR 0.9% 1000 ML INJ 1,000 ML IV SCH ×3 (03:00→20:44)
[2017-10-12 04:25] LABS: INTERNATIONAL NORMALIZED RATIO 1.6 RATIO; PROTHROMBIN TIME - PATIENT 15.7 SEC (9.8-11.6)
[2017-10-12] MEDS: ACYCLOVIR 5% OINT 15 APPLIC/15 GM TUBE TOPICAL SCH ×5 (06:22→20:44)
[2017-10-12] MEDS: INSULIN ASPART SUPPLEMENTAL SCALE SQ SCH ×4 (08:00→21:08)
[2017-10-12] MEDS: DOCUSATE SODIUM 50 MG/SENNA 8.6 MG TAB PO SCH ×2 (09:00→20:39)
[2017-10-12] MEDS: ASPIRIN 300 MG SUPP RECTAL SCH (09:00)
[2017-10-12] MEDS: CLOTRIMAZOLE 1% CREAM 15 GM TOPICAL SCH ×2 (09:00→20:44)
[2017-10-12] MEDS: MAGNESIUM OXIDE 400 MG TAB PO SCH ×2 (09:50→20:39)
[2017-10-12] MEDS: FUROSEMIDE 40 MG TAB PO SCH ×2 (09:50→17:20)
[2017-10-12] MEDS: FINASTERIDE 5 MG TAB PO SCH (09:50)
[2017-10-12] MEDS: ALLOPURINOL 100 MG TAB PO SCH ×2 (09:50→20:39)
[2017-10-12] MEDS: LISINOPRIL 10 MG TAB PO SCH (09:51)
[2017-10-12] MEDS: FERROUS SULFATE 325 MG (65 MG ELEMENTAL IRON) TAB PO SCH ×2 (09:51→20:38)
[2017-10-12] MEDS: FOLIC ACID 1 MG TAB PO SCH (09:51)
[2017-10-12] MEDS: CHOLECALCIFEROL (VIT D3) 1000 UNIT TAB PO SCH (09:51)
[2017-10-12] MEDS: METOPROLOL TARTRATE 25 MG TAB PO SCH ×2 (09:51→20:45)
[2017-10-12] MEDS: POTASSIUM CHLORIDE 20 MEQ CONTROLLED RELEASE TAB PO SCH ×2 (09:51→20:39)
[2017-10-12] MEDS: TAMSULOSIN HCL 0.4 MG CAP PO SCH (09:51)
[2017-10-12] MEDS: PYRIDOXINE HCL 50 MG TAB PO SCH (09:51)
[2017-10-12] MEDS: SODIUM CHLORIDE 0.9% FLUSH 10 ML FLUSH IV FLUSH SCH ×2 (09:52→20:39)
[2017-10-12 11:22] LABS: HEMATOCRIT 25.8 % (39.0-51.0); HEMOGLOBIN 8.6 GM/DL (13.0-17.0); MEAN CELL VOLUME 97.2 FL (80.0-100.0); MEAN CORPUSCULAR HEMOGLOBIN 32.4 PG (27.0-34.0); MEAN CORPUSCULAR HGB CONC 33.3 % (32.0-36.0); MEAN PLATELET VOLUME 10.2 FL (7.0-11.0); PLATELET COUNT 71 TH/MM3 (150-450); RED BLOOD COUNT 2.65 MIL/MM3 (4.50-5.90); RED CELL DISTRIBUTION WIDTH 19.3 % (11.6-17.2); WHITE BLOOD COUNT 3.9 TH/MM3 (4.0-11.0)
--- NOTE | 2017-10-12 13:47 | PD.ONC.PN ---
Subjective Subjective Remarks Afebrile overnight Patient reports he wants to go home No longer having hematuria No other obvious bleeding Objective Data Date Time Temp Pulse Resp B/P (MAP) Pulse Ox O2 Delivery O2 Flow Rate FiO2 10/12/17 12:00 97.3 68 18 101/56 (71) 100 10/12/17 08:00 97.9 78 18 126/57 (80) 98 10/12/17 04:00 86 10/12/17 03:00 97.9 80 18 132/62 (85) 97 10/12/17 00:15 98.0 89 20 136/69 (91) 97 10/11/17 21:00 98 10/11/17 20:20 21 10/11/17 20:00 98.2 100 19 140/67 (91) 96 10/11/17 16:00 97.5 70 18 113/56 (75) 99 10/11/17 15:55 70 10/12/17 10/12/17 10/12/17 07:00 15:00 23:00 Intake Total 800 ml Output Total 500 ml Balance 300 ml Result Diagram: 10/12/17 1105 10/11/17 0618 Laboratory Results Laboratory Tests Test 10/12/17 03:30 10/12/17 11:05 Prothrombin Time 15.7 SEC Prothromb Time International Ratio 1.6 RATIO White Blood Count 3.9 TH/MM3 Red Blood Count 2.65 MIL/MM3 Hemoglobin 8.6 GM/DL Hematocrit 25.8 % Mean Corpuscular Volume 97.2 FL Mean Corpuscular Hemoglobin 32.4 PG Mean Corpuscular Hemoglobin Concent 33.3 % Red Cell Distribution Width 19.3 % Platelet Count 71 TH/MM3 Mean Platelet Volume 10.2 FL Administered Medications Medications (Trade) Dose Ordered Sig/Nella Route PRN Reason Start Time Stop Time Status Last Admin Dose Admin Sodium Chloride 1,000 ml @ 100 mls/hr Q10H IV 10/09/17 12:53 10/12/17 03:00 Acyclovir (Zovirax 5% Oint (15 Gm)) 1 applic 5 TIMES A DAY TOPICAL 10/09/17 15:00 10/12/17 06:22 Allopurinol (Zyloprim) 100 mg BID PO 10/09/17 21:00 10/12/17 09:50 Atorvastatin Calcium (Lipitor) 40 mg HS PO 10/09/17 21:00 10/11/17 21:57 Cholecalciferol (Vitamin D3) 1,000 units DAILY PO 10/10/17 09:00 10/12/17 09:51 Clotrimazole (Lotrimin 1% Cream) 1 applic Q12HR TOPICAL 10/09/17 21:00 10/11/17 22:01 Finasteride (Proscar) 5 mg DAILY PO 10/10/17 09:00 10/12/17 09:50 Folic Acid (Folate) 1 mg DAILY PO 10/10/17 09:00 10/12/17 09:51 Furosemide (Lasix) 40 mg BID@ PO 10/09/17 18:00 10/12/17 09:50 Lisinopril (Prinivil) 10 mg DAILY PO 10/10/17 09:00 10/12/17 09:51 Magnesium Oxide (Mag-Ox) 400 mg BID PO 10/09/17 21:00 10/12/17 09:50 Metoprolol Tartrate (Lopressor) 12.5 mg Q12HR PO 10/09/17 21:00 10/12/17 09:51 Potassium Chloride (KCl) 20 meq BID PO 10/09/17 21:00 10/12/17 09:51 Pyridoxine HCl (Vitamin B6) 100 mg DAILY PO 10/10/17 09:00 10/12/17 09:51 Tamsulosin HCl (Flomax) 0.4 mg DAILY PO 10/10/17 09:00 10/12/17 09:51 Ferrous Sulfate (Ferrous Sulfate) 325 mg BID PO 10/10/17 09:00 10/12/17 09:51 Insulin Aspart (NovoLOG SUPPLEMENTAL SCALE) 1 ACHS SLIDING SCALE SQ 10/09/17 17:00 10/12/17 12:30 Sodium Chloride (NS Flush) 2 ml BID IV FLUSH 10/09/17 21:00 10/12/17 09:52 Senna/Docusate Sodium (Ora-Colace) 1 tab BID PO 10/09/17 21:00 10/12/17 09:00 Magnesium Hydroxide (Milk Of Magnesia Liq) 30 ml Q12H PRN PO Mild constipation 10/09/17 13:45 10/11/17 21:57 Cefazolin Sodium 2000 mg/Sodium Chloride 100 ml @ 200 mls/hr Q8H IV 10/09/17 16:00 10/12/17 09:50 Objective Remarks GENERAL: Overweight elderly male with multiple hematomas but otherwise alert resting in bed with spouse at bedside SKIN: Multiple bruising HEAD: Normocephalic. Right eye hematoma EYES: No injection or drainage. NECK: Supple, trachea midline. CARDIOVASCULAR: Regular rate and rhythm without murmurs. RESPIRATORY: Breath sounds equal bilaterally. No accessory muscle use. GASTROINTESTINAL: Abdomen soft, non-tender, nondistended. EXTREMITIES: No cyanosis MUSCULOSKELETAL: Adequate muscle tone. NEUROLOGICAL: Normal speech. Moving all extremities. Assessment/Plan Problem List: (1) S/P TAVR (transcatheter aortic valve replacement) ICD Codes: Z95.2 - Presence of prosthetic heart valve Plan: --Had surgery on 08/27 (2) Anemia ICD Codes: D64.9 - Anemia, unspecified Plan: -- Had significant hematuria and hemoglobin was 6.5 on 10/10 and 1 unit of packed red blood cells was given. --Transfuse to keep hemoglobin greater than 8 (3) Hematuria ICD Codes: R31.9 - Hematuria, unspecified Status: Resolved Plan: --Currently resolved --Continue to monitor (4) Elevated INR ICD Codes: R79.1 - Abnormal coagulation profile Status: Acute Plan: --Status post 2 units of FFP --INR currently 2.1 --No further bleeding --Coumadin on hold (5) Thrombocytopenia ICD Codes: D69.6 - Thrombocytopenia, unspecified Plan: --Acute on chronic thrombocytopenia --Normal range 90-100,000 (6) Subarachnoid hemorrhage ICD Codes: I60.9 - Nontraumatic subarachnoid hemorrhage, unspecified Status: Acute Plan: --Likely due to fall from syncopal episode while on anticoagulation --Monitor for headache Assessment 87 y/o male with recent TAVR admitted after a syncopal episode; he was found to have a subarachnoid hemorrhage with thrombocytopenia and coagulopathy Plan 1. Okay for aspirin from a hematology standpoint 2. Monitor CBC. 3. Okay to resume anticoagulation when cleared from neuro Attending Statement The exam, history, and the medical decision-making described in the above note were completed with the assistance of the mid-level provider. I reviewed and agree with the findings presented. I attest that I had a [id number] encounter with the patient on the same day, and personally performed and documented my assessment and findings in the medical record. 87 yoM s/p TAVR admitted with CVA, subdural/SAH. Holding anticoagualtion with warfarin, per NSGY and cardiology teams can resume in approximately 1 week as outpatient. On oral ASA. Hematology service will continue to follow. Danika Boston Oct 12, 2017 13:47 Jacy Ta MD Oct 12, 2017 17:51
--- NOTE | 2017-10-12 14:52 | HHI.NSPN ---
History Interval History Patient reports doing well. Offers no complaints Exam Results Vital Signs Date Time Temp Pulse Resp B/P (MAP) Pulse Ox O2 Delivery O2 Flow Rate FiO2 10/12/17 12:00 97.3 68 18 101/56 (71) 100 10/11/17 20:20 21 10/09/17 17:30 Room Air 10/09/17 12:19 15.00 Intake and Output 10/12/17 10/12/17 10/12/17 07:59 15:59 23:59 Intake Total 800 ml Output Total 500 ml Balance 300 ml Physical Examination Alert and awake. Fluent speech. Affect normal and appropriate. Follows commands well Moves all extremities well Medical Decision Making Impression and Plan Patient appears stable and doing well No neurosurgical intervention needed Should be off Coumadin for approximately 1 week Should have follow-up CT in approximately 1 week Kris Hall MD Oct 12, 2017 14:52
--- NOTE | 2017-10-12 15:15 | HHI.PR ---
Subjective Remarks Patient states he feels more energetic today. He is starting to think about the timing of going home. He denies any mental or visual changes. Denies fevers. Objective Vitals Vital Signs Date Time Temp Pulse Resp B/P (MAP) Pulse Ox O2 Delivery O2 Flow Rate FiO2 10/12/17 12:07 64 10/12/17 12:00 97.3 68 18 101/56 (71) 100 10/12/17 08:06 82 10/12/17 08:00 97.9 78 18 126/57 (80) 98 10/12/17 04:00 86 10/12/17 03:00 97.9 80 18 132/62 (85) 97 10/12/17 00:15 98.0 89 20 136/69 (91) 97 10/11/17 21:00 98 10/11/17 20:20 21 10/11/17 20:00 98.2 100 19 140/67 (91) 96 10/11/17 16:00 97.5 70 18 113/56 (75) 99 10/11/17 15:55 70 I/O 10/11/17 10/11/17 10/11/17 10/12/17 10/12/17 10/12/17 07:00 15:00 23:00 07:00 15:00 23:00 Intake Total 577 ml 850 ml 800 ml Output Total 200 ml 300 ml 500 ml Balance 377 ml 550 ml 300 ml Intake Oral 240 ml 850 ml 800 ml IV Total 100 ml FFP 217 ml Blood Product IV Normal Saline Flush 20 ml Output Urine Total 200 ml 300 ml 500 ml # Voids 3 # Bowel Movements 0 0 0 1 Result Diagram: 10/12/17 1105 10/11/17 0618 Objective Remarks GENERAL: Well-nourished, well-developed patient. SKIN: Widespread bruising over both arms and right side of face HEAD: Normocephalic. EYES: No scleral icterus. No injection or drainage. Pupils equal round and reactive. Normal tracking. NECK: Supple, trachea midline. No JVD or lymphadenopathy. CARDIOVASCULAR: Regular rate and rhythm without murmurs, gallops, or rubs. RESPIRATORY: Breath sounds equal bilaterally. No accessory muscle use. GASTROINTESTINAL: Abdomen soft, non-tender, nondistended. EXTREMITIES: No cyanosis, or edema. NEUROLOGICAL: Awake, alert, and oriented x 3. No focal deficits. Strength is equal bilaterally. Patient is ambulatory and balance. A/P Problem List: (1) Anemia ICD Code: D64.9 - Anemia, unspecified (2) Hematuria ICD Code: R31.9 - Hematuria, unspecified Status: Resolved (3) Warfarin-induced coagulopathy ICD Code: D68.32 - Hemorrhagic disorder due to extrinsic circulating 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; T45.515A - Adverse effect of 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, initial encounter (4) Elevated INR ICD Code: R79.1 - Abnormal coagulation profile Status: Acute (5) Atrial fibrillation ICD Code: I48.91 - Atrial fibrillation Status: Acute Assessment and Plan Syncopal episode Patient presented to the ER following fall and unresponsiveness. 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 Patient is typed and crossed and received 2 units of packed red blood cells. His anemia is the most likely underlying cause of his syncopal episode By his history he has been having periodic hematuria which may account for his losses Coumadin has been held due to INR of 4.9. INR is 1.6 today. Hemoglobin remains stable at 8.6. Will recheck. Hematuria INR is at 2.1 today Hematuria has resolved Atrial fibrillation, artificial valve (pig) Coumadin held due to mild toxicity and active bleeding Risk of intracranial bleed outweighs risk of ischemic stroke at this time His legal support analyst Dr. Calzada has been consulted for guidance regarding treatment of his atrial fibrillation. 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
--- NOTE | 2017-10-12 15:30 | MB ---
cc: Dat Dee MD DATE: 10/12/2017 REASON FOR CONSULTATION: Assistance with anticoagulation. HISTORY OF PRESENT ILLNESS: The patient is a pleasant 87-year-old gentleman who sees my partner, Dr. Bhat, who has a cardiac history notable for recent TAVR as well as chronic atrial fibrillation, maintained on warfarin. The patient has had several recent falls, though the patient himself says he is generally not a fall risk but that these were related to his debilitation from his TAVR hospitalization. He was just at home following a recent discharge from the hospital when he stood up, said he did not feel well and collapsed. Per his , he had no pulse at the time and EMS was called and apparently, CPR was performed. The chart states aborted sudden cardiac , but I do not see any clear documentation of any dysrhythmia at the time. As part of this initial workup, he had neuro imaging, which showed a small left subarachnoid hemorrhage and small right parietal subdural hematoma. His INR on presentation was supratherapeutic at 4.5. The patient has since done well and is nearing time for discharge, and I have been asked to comment regarding his ongoing anticoagulation. I discussed this at length with the patient and the details will be below. PAST MEDICAL HISTORY: 1. Chronic atrial fibrillation, on Coumadin. 2. Aortic stenosis, status post TAVR. 3. Small vessel coronary artery disease per cardiac catheterization on 08/04/2017. CURRENT MEDICATIONS: Lisinopril 10 mg daily, Flomax 0.4 mg daily, allopurinol 100 mg b.i.d., lipitor 40 mg at bedtime, Lopressor 12.5 mg q. 12, Lasix 40 mg p.o. b.i.d. ALLERGIES: NIACIN, SITAGLIPTIN. PHYSICAL EXAMINATION: VITAL SIGNS: Afebrile, pulse 68, respiratory rate 18, BP 101/56, saturating 100 on room air. GENERAL: Pleasant, elderly gentleman in no distress. NECK: No JVD. LUNGS: Clear to auscultation bilaterally. CARDIOVASCULAR: Regular rate and rhythm. No significant murmurs appreciated. ABDOMEN: Benign. EXTREMITIES: No edema. LABORATORY DATA: INR is 1.6. Sodium 140, potassium 4.0, chloride 106, bicarbonate 25.3, BUN 41, creatinine 1.55, glucose 148. White count 3.9, hematocrit 25.8, platelets 71. EKG shows atrial fibrillation with no significant change from prior readings. Telemetry shows generally rate controlled atrial ablation, but some slower rates in the 40s. IMPRESSION: 1. Syncope. The patient's initial presentation seemed to be due to a syncopal spell, but the details are quite unclear. It could have been orthostatic versus hypotensive versus a true cardiac arrest. The monitor has shown some slow atrial fibrillation. To help determine the etiology of his syncope and certainly for any further episodes, I have decided a loop recorder would be best, and the patient and his agreed to this plan and this will be performed tomorrow morning. 2. Atrial fibrillation. In addition to monitoring his rate control with the loop recorder above, the main issue is whether or not to restart his anticoagulation. His stroke risk is certainly significant given his complex past medical history and age. I did discuss the situation with the neurosurgery team and we feel that waiting a week to resume his anticoagulation would be prudent given his subarachnoid hemorrhage. This would mean restarting on or about 10/19. I will plan for loop recorder tomorrow morning and again, his anticoagulation should be resumed approximately 10/19 by the primary medical team. Thank you again for the opportunity to participate in this patient's care. MD ANALIA Canchola/MARY , 02:54 PM , 03:29 PM
[2017-10-12] MEDS: ATORVASTATIN 40 MG TAB PO SCH (20:39)
[2017-10-13] VITALS (12 sets, daily range): BP systolic 120–143; BP diastolic 55–67; PULSE 69–90; RESP 18–20; TEMP 97.2–98.4; O2SAT 94–100
[2017-10-13] MEDS: SODIUM CHLOR 0.9% 1000 ML INJ 1,000 ML IV SCH (01:03)
[2017-10-13] MEDS: ACYCLOVIR 5% OINT 15 APPLIC/15 GM TUBE TOPICAL SCH ×5 (01:03→21:56)
[2017-10-13 06:48] LABS: INTERNATIONAL NORMALIZED RATIO 1.4 RATIO; PROTHROMBIN TIME - PATIENT 14.2 SEC (9.8-11.6)
[2017-10-13 07:12] LABS: BICARBONATE 27.2 MEQ/L (21.0-32.0); CALCIUM 7.9 MG/DL (8.5-10.1); CREATININE 1.47 MG/DL (0.60-1.30)
[2017-10-13 07:14] LABS: HEMATOCRIT 22.3 % (39.0-51.0); HEMOGLOBIN 7.5 GM/DL (13.0-17.0); MEAN CELL VOLUME 97.2 FL (80.0-100.0); MEAN CORPUSCULAR HEMOGLOBIN 32.5 PG (27.0-34.0); MEAN CORPUSCULAR HGB CONC 33.4 % (32.0-36.0); MEAN PLATELET VOLUME 10.7 FL (7.0-11.0); PLATELET COUNT 61 TH/MM3 (150-450); RED CELL DISTRIBUTION WIDTH 18.4 % (11.6-17.2)
--- NOTE | 2017-10-13 07:28 | HHI.PR ---
Objective Vital Signs Date Time Temp Pulse Resp B/P (MAP) Pulse Ox O2 Delivery O2 Flow Rate FiO2 10/13/17 00:50 97.7 87 19 143/67 (92) 100 10/13/17 00:00 81 10/12/17 21:15 98.7 93 19 156/71 (99) 100 10/12/17 21:00 88 10/12/17 16:14 79 10/12/17 16:00 97.9 79 18 119/58 (78) 100 10/12/17 12:07 64 10/12/17 12:00 97.3 68 18 101/56 (71) 100 10/12/17 08:06 82 10/12/17 08:00 97.9 78 18 126/57 (80) 98 I/O 10/12/17 10/12/17 10/12/17 10/13/17 10/13/17 10/13/17 07:00 15:00 23:00 07:00 15:00 23:00 Intake Total 800 ml 1000 ml 1100 ml Output Total 500 ml 400 ml Balance 300 ml 600 ml 1100 ml Intake Oral 800 ml 1000 ml IV Total 1100 ml Output Urine Total 500 ml 400 ml # Voids 2 # Bowel Movements 0 1 0 Result Diagram: 10/13/17 0530 10/13/17 0530 Objective Remarks awake alert can name well vff face sym / t/o Assessment and Plan Assessment and Plan imp unclear if left carotid occ old inr 4.9 now i just gave 5 vit oral small r sdh and a few small sah after fall looks much better plan repeat mri have nusu weigh in about anticoag timing 10/13/17 feeling well vff face sym moves all well several issues: check standing bp echo nl his anemia do we need gi to scope him? he tells me cards thinking of loop and with syncope i thought dr stark saw him but see no note esau needs to address when he can restart anticoag Praveen Galarza MD Oct 13, 2017 07:28
[2017-10-13] MEDS ORDERED: SODIUM CHLOR 0.9% 250 ML INJ 250 ML IV ONE (08:00)
[2017-10-13] MEDS ORDERED: ceFAZolin INJ 1,000 MG VIAL ONE (08:53)
[2017-10-13] MEDS ORDERED: MIDAZOLAM HCL 2 MG/2 ML VIAL ONE (08:53)
[2017-10-13] MEDS: INSULIN ASPART SUPPLEMENTAL SCALE SQ SCH ×4 (08:54→21:55)
--- NOTE | 2017-10-13 09:37 | PD.CARD.PN ---
Subjective Subjective Remarks Pt did well, no complaints. Objective Medications Current Medications Medications (Trade) Dose Ordered Sig/Nella Route Start Time Stop Time Status Last Admin Sodium Chloride 1,000 ml @ 100 mls/hr Q10H IV 10/09/17 12:53 10/13/17 01:03 (Zovirax 5% Oint (15 Gm)) 1 applic 5 TIMES A DAY TOPICAL 10/09/17 15:00 10/12/17 06:22 (Zyloprim) 100 mg BID PO 10/09/17 21:00 10/12/17 20:39 (Lipitor) 40 mg HS PO 10/09/17 21:00 10/12/17 20:39 (Vitamin D3) 1,000 units DAILY PO 10/10/17 09:00 10/12/17 09:51 (Lotrimin 1% Cream) 1 applic Q12HR TOPICAL 10/09/17 21:00 10/11/17 22:01 (Proscar) 5 mg DAILY PO 10/10/17 09:00 10/12/17 09:50 (Folate) 1 mg DAILY PO 10/10/17 09:00 10/12/17 09:51 (Lasix) 40 mg BID@,18 PO 10/09/17 18:00 10/12/17 17:20 (Prinivil) 10 mg DAILY PO 10/10/17 09:00 10/12/17 09:51 (Mag-Ox) 400 mg BID PO 10/09/17 21:00 10/12/17 20:39 (Lopressor) 12.5 mg Q12HR PO 10/09/17 21:00 10/12/17 20:45 (Miralax) 17 gm DAILY PRN PO 10/09/17 13:45 (KCl) 20 meq BID PO 10/09/17 21:00 10/12/17 20:39 (Vitamin B6) 100 mg DAILY PO 10/10/17 09:00 10/12/17 09:51 (Flomax) 0.4 mg DAILY PO 10/10/17 09:00 10/12/17 09:51 (Ferrous Sulfate) 325 mg BID PO 10/10/17 09:00 10/12/17 20:38 (D50w (Vial) Inj) 50 ml UNSCH PRN IV PUSH 10/09/17 13:45 (Glucagon Inj) 1 mg UNSCH PRN OTHER 10/09/17 13:45 (NovoLOG SUPPLEMENTAL SCALE) 1 ACHS SLIDING SCALE SQ 10/09/17 17:00 10/12/17 21:08 (NS Flush) 2 ml BID IV FLUSH 10/09/17 21:00 10/12/17 09:52 (NS Flush) 2 ml UNSCH PRN IV FLUSH 10/09/17 13:45 (Tylenol) 650 mg Q4H PRN PO 10/09/17 13:45 (Zofran Inj) 4 mg Q6H PRN IVP 10/09/17 13:45 (Reglan Inj) 5 mg Q6H PRN IV PUSH 10/09/17 13:45 (Percocet 5-325 Mg) 1 tab Q6H PRN PO 10/09/17 13:45 (Percocet 10-325 Mg) 1 tab Q6H PRN PO 10/09/17 13:45 (Morphine Inj) 2 mg Q3H PRN IV PUSH 10/09/17 13:45 (Morphine Inj) 4 mg Q3H PRN IV PUSH 10/09/17 13:45 (Morphine Inj) 4 mg Q3H PRN IV PUSH 10/09/17 13:45 (Narcan Inj) 0.4 mg UNSCH PRN IV PUSH 10/09/17 13:45 (Ora-Colace) 1 tab BID PO 10/09/17 21:00 10/12/17 20:39 (Milk Of Magnesia Liq) 30 ml Q12H PRN PO 10/09/17 13:45 10/11/17 21:57 (Senokot) 17.2 mg Q12H PRN PO 10/09/17 13:45 (Dulcolax Supp) 10 mg DAILY PRN RECTAL 10/09/17 13:45 (Lactulose Liq) 30 ml DAILY PRN PO 10/09/17 13:45 (Pill Splitter) 1 ea UNSCH PRN OTHER 10/09/17 15:00 Cefazolin Sodium 2000 mg/Sodium Chloride 100 ml @ 200 mls/hr Q8H IV 10/09/17 16:00 10/13/17 01:03 Sodium Chloride 250 ml @ 15 mls/hr ONCE ONCE IV 10/13/17 08:00 10/14/17 00:39 Vital Signs / I&O Vital Signs Date Time Temp Pulse Resp B/P (MAP) Pulse Ox O2 Delivery O2 Flow Rate FiO2 10/13/17 08:09 97.7 72 20 126/61 (82) 97 10/13/17 05:50 98.0 69 18 130/66 (87) 98 10/13/17 00:50 97.7 87 19 143/67 (92) 100 10/13/17 00:00 81 10/12/17 21:15 98.7 93 19 156/71 (99) 100 10/12/17 21:00 88 10/12/17 16:14 79 10/12/17 16:00 97.9 79 18 119/58 (78) 100 10/12/17 12:07 64 10/12/17 12:00 97.3 68 18 101/56 (71) 100 I/O 10/12/17 10/12/17 10/12/17 10/13/17 10/13/17 10/13/17 07:00 15:00 23:00 07:00 15:00 23:00 Intake Total 800 ml 1000 ml 1950 ml Output Total 500 ml 400 ml 900 ml Balance 300 ml 600 ml 1050 ml Intake Oral 800 ml 1000 ml 850 ml IV Total 1100 ml Output Urine Total 500 ml 400 ml 900 ml # Voids 2 4 # Bowel Movements 0 1 0 2 Physical Exam GENERAL: This is a well-nourished, well-developed patient, in no apparent distress. CARDIOVASCULAR: Regular rate and irregular rhythm without murmurs, gallops, or rubs. RESPIRATORY: Clear to auscultation. Breath sounds equal bilaterally. No wheezes , rales, or rhonchi. GASTROINTESTINAL: Abdomen soft, non-tender, nondistended. Normal, active bowel sounds MUSCULOSKELETAL: Extremities without clubbing, cyanosis, or edema. NEURO: Alert & Oriented x4 to person, place, time, situation. Moves all ext x4 Laboratory Laboratory Tests Test 10/12/17 11:05 10/13/17 05:30 White Blood Count 3.9 TH/MM3 3.0 TH/MM3 Red Blood Count 2.65 MIL/MM3 2.30 MIL/MM3 Hemoglobin 8.6 GM/DL 7.5 GM/DL Hematocrit 25.8 % 22.3 % Mean Corpuscular Volume 97.2 FL 97.2 FL Mean Corpuscular Hemoglobin 32.4 PG 32.5 PG Mean Corpuscular Hemoglobin Concent 33.3 % 33.4 % Red Cell Distribution Width 19.3 % 18.4 % Platelet Count 71 TH/MM3 61 TH/MM3 Mean Platelet Volume 10.2 FL 10.7 FL Prothrombin Time 14.2 SEC Prothromb Time International Ratio 1.4 RATIO Blood Urea Nitrogen 32 MG/DL Creatinine 1.47 MG/DL Random Glucose 135 MG/DL Calcium Level 7.9 MG/DL Sodium Level 140 MEQ/L Potassium Level 4.0 MEQ/L Chloride Level 106 MEQ/L Carbon Dioxide Level 27.2 MEQ/L Anion Gap 7 MEQ/L Estimat Glomerular Filtration Rate 45 ML/MIN Imaging Last Impressions Brain MRI 10/10/17 0900 Signed Impressions: Service Date/Time: Tuesday, October 10, 2017 08:44 - CONCLUSION: 1. Stable small volume left subarachnoid hemorrhage. 2. Stable small right parietal subdural hematoma. 3. Mass associated with the left maxillary sinus needs further characterization utilizing a CT of the facial bones. Matt Castañeda Jr., MD Neck CTA [id number] Signed Impressions: Service Date/Time: September 11:44 - CONCLUSION: 1. 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 2. Moderate calcified atherosclerotic plaquing at the right carotid bifurcation and along the proximal segment of the right internal carotid artery. Focal moderate stenosis of the right internal carotid artery approximately 1 cm above the origin of approximately 50-60%%. 3. Atherosclerotic plaquing along the distal right internal carotid artery at the level of the cavernous sinus. The 4. Several mildly prominent nonspecific mediastinal lymph nodes. This raises the possibility of mediastinal adenopathy. Recommend dedicated CT thorax for further evaluation. Matheus Ramirez MD Head CTA 10/09/17 112 Signed Impressions: Service Date/Time: September 11:44 - CONCLUSION: 1. Occlusion of the left internal carotid artery. 2. Otherwise, vascular structure surrounding the [place] are patent and unremarkable for patient's age. Matheus Ramirez MD Head Magnetic Resonance Angiography 10/09/17 0000 Signed Impressions: Service Date/Time: September 15:04 - CONCLUSION: Occlusion of the left internal carotid artery with adequate reconstitution via anterior and posterior communicating vessels Pino Araya MD Head CT 10/09/17 0000 Signed Impressions: Service Date/Time: September 11:35 - CONCLUSION: Motion degraded exam, grossly negative for acute process Pino Araya MD Chest X-Ray 10/09/17 0000 Signed Impressions: Service Date/Time: September 12:59 - CONCLUSION: Stable chest appearance Pino Araya MD Carotid Artery Ultrasound 10/09/17 0000 Signed Impressions: Service Date/Time: September 14:16 - CONCLUSION: 1. Occluded left internal carotid artery. 2. Calcified right carotid plaque with resultant up to 50%% stenosis. 3. Antegrade vertebral artery flow bilaterally. Tyson García MD Assessment and Plan Problem List: (1) Atrial fibrillation ICD Codes: I48.91 - Atrial fibrillation Status: Acute Plan: rate controlled, loop now in place, see below regarding anticoagulation. (2) Subarachnoid hemorrhage ICD Codes: I60.9 - Nontraumatic subarachnoid hemorrhage, unspecified Status: Acute Plan: off coumadin currently; would resume anticoagulation when Ok w/ neurosurgery, on aprox 10-19-17; troponin negative (3) Cardiopulmonary arrest with successful resuscitation ICD Codes: I46.9 - Cardiac arrest, cause unspecified Status: Acute Plan: Vs syncope; Unclear details; loop recorder now in place; Ischemic workup done prior to his recent TAVR w/o any significant obstructive lesions. Assessment and Plan Ok to d/c from cardiac standpoint when the rest of his issues resolve. Will sign off, pls call with questions. Dat Dee MD Oct 13, 2017 09:37
--- NOTE | 2017-10-13 09:40 | MA ---
cc: Dat Dee MD DATE: 10/13/2017 PROCEDURE PERFORMED: LOOP recorder insertion. INDICATION: Syncope and atrial fibrillation management. DESCRIPTION OF PROCEDURE: The patient was brought to the doc unit in the post-observed state. After informed consent was obtained, a [employer] loop recorder was inserted subcutaneously to the left chest. The patient tolerated the procedure well without any apparent complication. Tachybrady pause and atrial fibrillation detection was enabled. The serial number was [id number]. The initial R-wave was 0.37 millivolts. Dat Dee MD ANALIA/DL , 09:30 AM , 09:39 AM
[2017-10-13] MEDS: PYRIDOXINE HCL 50 MG TAB PO SCH (10:05)
[2017-10-13] MEDS: POTASSIUM CHLORIDE 20 MEQ CONTROLLED RELEASE TAB PO SCH ×2 (10:05→21:53)
[2017-10-13] MEDS: LISINOPRIL 10 MG TAB PO SCH (10:05)
[2017-10-13] MEDS: TAMSULOSIN HCL 0.4 MG CAP PO SCH (10:06)
[2017-10-13] MEDS: DOCUSATE SODIUM 50 MG/SENNA 8.6 MG TAB PO SCH ×2 (10:06→21:00)
[2017-10-13] MEDS: CHOLECALCIFEROL (VIT D3) 1000 UNIT TAB PO SCH (10:06)
[2017-10-13] MEDS: MAGNESIUM OXIDE 400 MG TAB PO SCH ×2 (10:07→21:58)
[2017-10-13] MEDS: FINASTERIDE 5 MG TAB PO SCH (10:07)
[2017-10-13] MEDS: FERROUS SULFATE 325 MG (65 MG ELEMENTAL IRON) TAB PO SCH ×2 (10:07→21:54)
[2017-10-13] MEDS: FUROSEMIDE 40 MG TAB PO SCH ×2 (10:07→17:15)
[2017-10-13] MEDS: METOPROLOL TARTRATE 25 MG TAB PO SCH ×2 (10:07→21:53)
[2017-10-13] MEDS: ALLOPURINOL 100 MG TAB PO SCH ×2 (10:08→21:54)
[2017-10-13] MEDS: FOLIC ACID 1 MG TAB PO SCH (10:08)
[2017-10-13] MEDS: SODIUM CHLORIDE 0.9% FLUSH 10 ML FLUSH IV FLUSH SCH ×2 (10:08→21:00)
[2017-10-13] MEDS: CLOTRIMAZOLE 1% CREAM 15 GM TOPICAL SCH ×2 (10:08→21:00)
--- NOTE | 2017-10-13 12:10 | PD.ONC.PN ---
Subjective Subjective Remarks Afebrile overnight Patient reports he woke up in the middle the night and had some momentary confusion Also reported that he has some dizziness this morning when he was downstairs getting loop recorder placed Hoping to go home soon Objective Data Date Time Temp Pulse Resp B/P (MAP) Pulse Ox O2 Delivery O2 Flow Rate FiO2 10/13/17 11:57 97.7 76 20 120/55 (76) 94 10/13/17 10:56 78 10/13/17 08:09 97.7 72 20 126/61 (82) 97 10/13/17 05:50 98.0 69 18 130/66 (87) 98 10/13/17 00:50 97.7 87 19 143/67 (92) 100 10/13/17 00:00 81 10/12/17 21:15 98.7 93 19 156/71 (99) 100 10/12/17 21:00 88 10/12/17 16:14 79 10/12/17 16:00 97.9 79 18 119/58 (78) 100 10/12/17 12:07 64 10/13/17 10/13/17 10/13/17 07:00 15:00 23:00 Intake Total 1950 ml Output Total 900 ml Balance 1050 ml Result Diagram: 10/13/17 0530 10/13/17 0530 Laboratory Results Laboratory Tests Test 10/13/17 05:30 White Blood Count 3.0 TH/MM3 Red Blood Count 2.30 MIL/MM3 Hemoglobin 7.5 GM/DL Hematocrit 22.3 % Mean Corpuscular Volume 97.2 FL Mean Corpuscular Hemoglobin 32.5 PG Mean Corpuscular Hemoglobin Concent 33.4 % Red Cell Distribution Width 18.4 % Platelet Count 61 TH/MM3 Mean Platelet Volume 10.7 FL Prothrombin Time 14.2 SEC Prothromb Time International Ratio 1.4 RATIO Blood Urea Nitrogen 32 MG/DL Creatinine 1.47 MG/DL Random Glucose 135 MG/DL Calcium Level 7.9 MG/DL Sodium Level 140 MEQ/L Potassium Level 4.0 MEQ/L Chloride Level 106 MEQ/L Carbon Dioxide Level 27.2 MEQ/L Anion Gap 7 MEQ/L Estimat Glomerular Filtration Rate 45 ML/MIN Administered Medications Medications (Trade) Dose Ordered Sig/Nella Route PRN Reason Start Time Stop Time Status Last Admin Dose Admin Sodium Chloride 1,000 ml @ 100 mls/hr Q10H IV 10/09/17 12:53 10/13/17 01:03 Acyclovir (Zovirax 5% Oint (15 Gm)) 1 applic 5 TIMES A DAY TOPICAL 10/09/17 15:00 10/12/17 06:22 Allopurinol (Zyloprim) 100 mg BID PO 10/09/17 21:00 10/13/17 10:08 Atorvastatin Calcium (Lipitor) 40 mg HS PO 10/09/17 21:00 10/12/17 20:39 Cholecalciferol (Vitamin D3) 1,000 units DAILY PO 10/10/17 09:00 10/13/17 10:06 Clotrimazole (Lotrimin 1% Cream) 1 applic Q12HR TOPICAL 10/09/17 21:00 10/11/17 22:01 Finasteride (Proscar) 5 mg DAILY PO 10/10/17 09:00 10/13/17 10:07 Folic Acid (Folate) 1 mg DAILY PO 10/10/17 09:00 10/13/17 10:08 Furosemide (Lasix) 40 mg BID@ PO 10/09/17 18:00 10/13/17 10:07 Lisinopril (Prinivil) 10 mg DAILY PO 10/10/17 09:00 10/13/17 10:05 Magnesium Oxide (Mag-Ox) 400 mg BID PO 10/09/17 21:00 10/13/17 10:07 Metoprolol Tartrate (Lopressor) 12.5 mg Q12HR PO 10/09/17 21:00 10/13/17 10:07 Potassium Chloride (KCl) 20 meq BID PO 10/09/17 21:00 10/13/17 10:05 Pyridoxine HCl (Vitamin B6) 100 mg DAILY PO 10/10/17 09:00 10/13/17 10:05 Tamsulosin HCl (Flomax) 0.4 mg DAILY PO 10/10/17 09:00 10/13/17 10:06 Ferrous Sulfate (Ferrous Sulfate) 325 mg BID PO 10/10/17 09:00 10/13/17 10:07 Insulin Aspart (NovoLOG SUPPLEMENTAL SCALE) 1 ACHS SLIDING SCALE SQ 10/09/17 17:00 10/12/17 21:08 Sodium Chloride (NS Flush) 2 ml BID IV FLUSH 10/09/17 21:00 10/13/17 10:08 Senna/Docusate Sodium (Ora-Colace) 1 tab BID PO 10/09/17 21:00 10/13/17 10:06 Magnesium Hydroxide (Milk Of Gabriel Ruiz) 30 ml Q12H PRN PO Mild constipation 10/09/17 13:45 10/11/17 21:57 Cefazolin Sodium 2000 mg/Sodium Chloride 100 ml @ 200 mls/hr Q8H IV 10/09/17 16:00 10/13/17 10:05 Objective Remarks GENERAL: Overweight elderly male sitting up in chair at bedside visiting with spouse and document image technician. SKIN: Multiple scattered bruises HEAD: Normocephalic. Right eye hematoma EYES: No injection or drainage. NECK: Supple, trachea midline. CARDIOVASCULAR: Regular rate and rhythm without murmurs. Dressing dry and intact to left mid chest RESPIRATORY: Breath sounds equal bilaterally. No accessory muscle use. GASTROINTESTINAL: Abdomen soft, non-tender, nondistended. EXTREMITIES: No cyanosis MUSCULOSKELETAL: Adequate muscle tone. NEUROLOGICAL: Normal speech. Moving all extremities. Assessment/Plan Problem List: (1) S/P TAVR (transcatheter aortic valve replacement) ICD Codes: Z95.2 - Presence of prosthetic heart valve Plan: --Had surgery on 08/27 (2) Anemia ICD Codes: D64.9 - Anemia, unspecified Plan: -- Had significant hematuria and hemoglobin was 6.5 on 10/10 and 1 unit of packed red blood cells was given. --Transfuse to keep hemoglobin greater than 8 (3) Hematuria ICD Codes: R31.9 - Hematuria, unspecified Status: Resolved Plan: --Currently resolved --Continue to monitor (4) Elevated INR ICD Codes: R79.1 - Abnormal coagulation profile Status: Acute Plan: --Status post 2 units of FFP --INR currently 1.4 --No further bleeding --Coumadin on hold (5) Thrombocytopenia ICD Codes: D69.6 - Thrombocytopenia, unspecified Plan: --Acute on chronic thrombocytopenia --Normal range 90-100,000 (6) Subarachnoid hemorrhage ICD Codes: I60.9 - Nontraumatic subarachnoid hemorrhage, unspecified Status: Acute Plan: --Likely due to fall from syncopal episode while on anticoagulation --Monitor for headache (7) Syncope and collapse ICD Codes: R55 - Syncope and collapse Plan: --Patient had a loop recorder placed on 10/13 Assessment 87 y/o male with recent TAVR admitted after a syncopal episode; he was found to have a subarachnoid hemorrhage with thrombocytopenia and coagulopathy Plan 1. Patient had a loop recorder placed today by cardiology to evaluate syncopal episode. 2. Per neurosurgery, no anticoagulation for 1 week; repeat CT of the head in 1 week to reevaluate subarachnoid hemorrhage. 3. Future choice of anticoagulation to be decided by cardiology 4. Agree with packed red blood cell transfusion today 5. Obtain stool for occult blood 6. Monitor CBC; monitor for bleeding Danika Boston Oct 13, 2017 12:10
--- NOTE | 2017-10-13 16:33 | HHI.PR ---
Subjective Remarks 87-year-old male who presented with severe anemia, Coumadin toxicity, subdural and subarachnoid hematomas, hematuria. Most of his symptoms have stabilized following cessation of 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. He is asking today when he will be going home. I explained he needs 2 more units of blood. Objective Vitals Vital Signs Date Time Temp Pulse Resp B/P (MAP) Pulse Ox O2 Delivery O2 Flow Rate FiO2 10/13/17 15:15 97.7 73 18 126/60 100 10/13/17 14:46 97.7 75 18 122/66 10/13/17 14:24 97.2 70 20 122/58 99 10/13/17 11:57 97.7 76 20 120/55 (76) 94 10/13/17 10:56 78 10/13/17 08:09 97.7 72 20 126/61 (82) 97 10/13/17 05:50 98.0 69 18 130/66 (87) 98 10/13/17 00:50 97.7 87 19 143/67 (92) 100 10/13/17 00:00 81 10/12/17 21:15 98.7 93 19 156/71 (99) 100 10/12/17 21:00 88 I/O 10/12/17 10/12/17 10/12/17 10/13/17 10/13/17 10/13/17 07:00 15:00 23:00 07:00 15:00 23:00 Intake Total 800 ml 1000 ml 1950 ml 10 ml Output Total 500 ml 400 ml 900 ml Balance 300 ml 600 ml 1050 ml 10 ml Intake Oral 800 ml 1000 ml 850 ml IV Total 1100 ml Blood Product IV Normal Saline Flush 10 ml Output Urine Total 500 ml 400 ml 900 ml # Voids 2 4 # Bowel Movements 0 1 0 2 Result Diagram: 10/13/17 0530 10/13/17 0530 Objective Remarks GENERAL: Well-nourished, well-developed patient. SKIN: Widespread bruising over both arms and right side of face HEAD: Normocephalic. EYES: No scleral icterus. No injection or drainage. Pupils equal round and reactive. Normal tracking. NECK: Supple, trachea midline. No JVD or lymphadenopathy. CARDIOVASCULAR: Regular rate and rhythm without murmurs, gallops, or rubs. RESPIRATORY: Breath sounds equal bilaterally. No accessory muscle use. GASTROINTESTINAL: Abdomen soft, non-tender, nondistended. EXTREMITIES: No cyanosis, or edema. NEUROLOGICAL: Awake, alert, and oriented x 3. No focal deficits. Strength is equal bilaterally. Patient is ambulatory and balance. A/P Problem List: (1) Anemia ICD Code: D64.9 - Anemia, unspecified (2) Hematuria ICD Code: R31.9 - Hematuria, unspecified Status: Resolved (3) Warfarin-induced coagulopathy ICD Code: D68.32 - Hemorrhagic disorder due to extrinsic circulating 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; T45.515A - Adverse effect of 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, initial encounter (4) Elevated INR ICD Code: R79.1 - Abnormal coagulation profile Status: Acute (5) Atrial fibrillation ICD Code: I48.91 - Atrial fibrillation Status: Acute Assessment and Plan Syncopal episode Patient presented to the ER following fall and unresponsiveness. 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, 50-60% stenosis of the right carotid artery, nature of appearance is suspicious for mediastinal adenopathy, CT thorax recommended by radiology Continue PT and OT, speech and swallowing are okay Appreciate neurology consult Appreciate neurosurgery consult Severe anemia Hemoglobin was 6.5 on admission, patient received 2 units of blood, repeat hemoglobin showed he was still at 7.5 ,so 2 more units were ordered for transfusion today His anemia is the most likely underlying cause of his syncopal episode By his history he has been having periodic hematuria which may account for his losses Alternately he has a history of neuroendocrine tumor of the midgut which 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 INR has returned to normal is 1.6 today. Hematuria INR is at 2.1 today Hematuria has resolved Atrial fibrillation, artificial valve (pig) Coumadin held due to mild toxicity and active bleeding Risk of intracranial bleed outweighs risk of ischemic stroke at this time Loop recorder was placed this morning per cardiology recommendation Subarachnoid and subdural bleeds Subdural seems old subarachnoid seems new, both are consistent with recent falls Likely exacerbated by supertherapeutic state of Coumadin Coumadin held, will consider repeat scans if any neurological symptoms worsen Neuroendocrine tumor of bowel Will order occult stool since this is a possible source of bleeding Workup should include PET scan. This tumor was out of reach of colonoscopy on last workup Type 2 diabetes Sliding scale insulin with regular Accu-Cheks Diabetic diet Recent systemic infection Continue Ancef 2 g IV every 8 hours Benign prostatic hypertrophy Continue Flomax and finasteride Hypertension Continue home medications DVT prophylaxis Avoid 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 for at least a week according to cardiology SCDs CODE STATUS Full code Darnell Grajeda MD Oct 13, 2017 16:33
[2017-10-13] MEDS: ATORVASTATIN 40 MG TAB PO SCH (21:53)
--- NOTE | 2017-10-13 23:50 | HHI.NSPN ---
History Chief Complaint: no complaint of headache. Interval History Patient complains of occasional shortness of breath when ambulating. He states that he did ambulate today. No complaint of blurred vision or diplopia. Exam Results Vital Signs Date Time Temp Pulse Resp B/P (MAP) Pulse Ox O2 Delivery O2 Flow Rate FiO2 10/13/17 20:00 98.4 90 18 127/63 (84) 99 10/11/17 20:20 21 10/09/17 17:30 Room Air 10/09/17 12:19 15.00 Intake and Output 10/13/17 10/13/17 10/14/17 08:00 16:00 00:00 Intake Total 1950 ml 10 ml 1120 ml Output Total 900 ml Balance 1050 ml 10 ml 1120 ml Physical Examination Mild to moderate bilateral periorbital edema and ecchymosis. Diffuse upper extremity ecchymosis-appears to be chronic skin changes Alert and awake. Fluent speech. Affect normal and appropriate. Follows commands well Moves all extremities well Lab, Micro, Other Results Laboratory Tests Test 10/13/17 05:30 White Blood Count 3.0 TH/MM3 Red Blood Count 2.30 MIL/MM3 Hemoglobin 7.5 GM/DL Hematocrit 22.3 % Mean Corpuscular Volume 97.2 FL Mean Corpuscular Hemoglobin 32.5 PG Mean Corpuscular Hemoglobin Concent 33.4 % Red Cell Distribution Width 18.4 % Platelet Count 61 TH/MM3 Mean Platelet Volume 10.7 FL Prothrombin Time 14.2 SEC Prothromb Time International Ratio 1.4 RATIO Blood Urea Nitrogen 32 MG/DL Creatinine 1.47 MG/DL Random Glucose 135 MG/DL Calcium Level 7.9 MG/DL Sodium Level 140 MEQ/L Potassium Level 4.0 MEQ/L Chloride Level 106 MEQ/L Carbon Dioxide Level 27.2 MEQ/L Anion Gap 7 MEQ/L Estimat Glomerular Filtration Rate 45 ML/MIN Medical Decision Making Impression and Plan Impression: 1. 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 Most recent CT scan 10/11/17 reveals a small amount of subarachnoid hemorrhage with probable subdural hematoma component primarily right parietal region without significant midline shift. Plan: Findings were discussed with patient No Neurosurgical intervention anticipated at this point. May Proceed with anticoagulation at this point from a neurosurgical standpoint. Nate Burton MD Oct 13, 2017 23:50
[2017-10-14] MEDS: SODIUM CHLOR 0.9% 1000 ML INJ 1,000 ML IV SCH ×2 (00:33→02:53)
[2017-10-14 04:00] VITALS: BP 140/63; PULSE 72; RESP 18; TEMP 98.3; O2SAT 96
[2017-10-14 04:56] LABS: EOSINOPHIL # 0.1 TH/MM3 (0-0.4); EOSINOPHIL % 3.8 % (0.0-4.0); HEMATOCRIT 28.4 % (39.0-51.0); HEMOGLOBIN 9.6 GM/DL (13.0-17.0); LYMPH % 7.2 % (9.0-44.0); LYMPHOCYTE # 0.3 TH/MM3 (1.0-4.8); MEAN CELL VOLUME 93.8 FL (80.0-100.0); MEAN CORPUSCULAR HEMOGLOBIN 31.7 PG (27.0-34.0); MEAN CORPUSCULAR HGB CONC 33.7 % (32.0-36.0); MEAN PLATELET VOLUME 9.8 FL (7.0-11.0); MONO % 10.2 % (0.0-8.0); MONOCYTE # 0.4 TH/MM3 (0-0.9); NEUT % 77.8 % (16.0-70.0); PLATELET COUNT 67 TH/MM3 (150-450); RED BLOOD COUNT 3.03 MIL/MM3 (4.50-5.90); RED CELL DISTRIBUTION WIDTH 20.7 % (11.6-17.2); WHITE BLOOD COUNT 3.8 TH/MM3 (4.0-11.0)
[2017-10-14 05:07] LABS: INTERNATIONAL NORMALIZED RATIO 1.4 RATIO; PROTHROMBIN TIME - PATIENT 13.8 SEC (9.8-11.6)
[2017-10-14 05:24] LABS: BICARBONATE 27.1 MEQ/L (21.0-32.0); CALCIUM 8.3 MG/DL (8.5-10.1); CREATININE 1.47 MG/DL (0.60-1.30)
[2017-10-14] MEDS: ACYCLOVIR 5% OINT 15 APPLIC/15 GM TUBE TOPICAL SCH (06:00)
[2017-10-14 06:59] LABS: ACANTHOCYTES OCC (NORMAL); OVALOCYTES 1+ (NORMAL)
--- NOTE | 2017-10-14 07:44 | HHI.PR ---
Subjective Remarks afib Objective Vital Signs Date Time Temp Pulse Resp B/P (MAP) Pulse Ox O2 Delivery O2 Flow Rate FiO2 10/14/17 04:00 98.3 72 18 140/63 (88) 96 10/13/17 20:00 98.4 90 18 127/63 (84) 99 10/13/17 20:00 98.4 90 20 120/60 99 10/13/17 16:44 97.6 70 18 120/62 100 10/13/17 16:30 97.7 71 20 122/66 (84) 100 10/13/17 15:15 97.7 73 18 126/60 100 10/13/17 14:46 97.7 75 18 122/66 10/13/17 14:24 97.2 70 20 122/58 99 10/13/17 11:57 97.7 76 20 120/55 (76) 94 10/13/17 10:56 78 10/13/17 08:09 97.7 72 20 126/61 (82) 97 I/O 10/13/17 10/13/17 10/13/17 10/14/17 10/14/17 10/14/17 07:00 15:00 23:00 07:00 15:00 23:00 Intake Total 1950 ml 10 ml 1520 ml 1100 ml Output Total 900 ml 1300 ml Balance 1050 ml 10 ml 220 ml 1100 ml Intake Oral 850 ml 720 ml IV Total 1100 ml 1100 ml Packed Cells 800 ml Blood Product IV Normal Saline Flush 10 ml Output Urine Total 900 ml 1300 ml # Voids 4 2 0 # Bowel Movements 2 3 0 Result Diagram: 10/14/1743910/14/17 0440 Objective Remarks awake alert can name well vff face sym 5/5 t/o nl gait with walker Assessment and Plan Assessment and Plan imp unclear if left carotid occ old inr 4.9 now i just gave 5 vit oral small r sdh and a few small sah after fall looks much better plan repeat mri have [facility] weigh in about anticoag timing 10/14/17 several issues: check standing bp nurse will call me echo nl his anemia do we need gi to scope him? i would think u would have to lose a lot of blood thru hematuria to drop ur hb that much loop in [facility] said team could start anticoag now someone needs to call pcp so it is watched carefully i think i would coumadinize again with inr 2-2.5 he had been doing well evidently with inr until now and then could change to eliquis in 2-3 months if we can find out why syncope 3 times in last [address] anaya may have been working on this syncope as o/p Praveen Galarza MD Oct 14, 2017 07:44
[2017-10-14] MEDS: INSULIN ASPART SUPPLEMENTAL SCALE SQ SCH (08:00)
[2017-10-14 08:19] VITALS: BP_SYST 126; BP_SYST 135; BP_DIAS 58; BP_DIAS 74; PULSE 72; RESP 18; TEMP 98.1; O2SAT 97
[2017-10-14] MEDS: CHOLECALCIFEROL (VIT D3) 1000 UNIT TAB PO SCH (08:34)
[2017-10-14] MEDS: FERROUS SULFATE 325 MG (65 MG ELEMENTAL IRON) TAB PO SCH (08:34)
[2017-10-14] MEDS: FOLIC ACID 1 MG TAB PO SCH (08:34)
[2017-10-14] MEDS: DOCUSATE SODIUM 50 MG/SENNA 8.6 MG TAB PO SCH (08:35)
[2017-10-14] MEDS: METOPROLOL TARTRATE 25 MG TAB PO SCH (08:35)
[2017-10-14] MEDS: FUROSEMIDE 40 MG TAB PO SCH (08:35)
[2017-10-14] MEDS: POTASSIUM CHLORIDE 20 MEQ CONTROLLED RELEASE TAB PO SCH (08:35)
[2017-10-14] MEDS: LISINOPRIL 10 MG TAB PO SCH (08:35)
[2017-10-14] MEDS: TAMSULOSIN HCL 0.4 MG CAP PO SCH (08:35)
[2017-10-14] MEDS: PYRIDOXINE HCL 50 MG TAB PO SCH (08:35)
[2017-10-14] MEDS: FINASTERIDE 5 MG TAB PO SCH (08:36)
[2017-10-14] MEDS: ALLOPURINOL 100 MG TAB PO SCH (08:36)
[2017-10-14] MEDS: MAGNESIUM OXIDE 400 MG TAB PO SCH (08:36)
[2017-10-14] MEDS: SODIUM CHLORIDE 0.9% FLUSH 10 ML FLUSH IV FLUSH SCH (08:42)
[2017-10-14] MEDS: CLOTRIMAZOLE 1% CREAM 15 GM TOPICAL SCH (09:00)
--- NOTE | 2017-10-14 11:13 | HHI.FF ---
Face to Face Verification Diagnosis: (1) Anemia (2) Warfarin-induced coagulopathy (3) Hematuria (4) Atrial fibrillation (5) Syncope and collapse (6) Subarachnoid hemorrhage (7) Neuroendocrine tumor Physical Therapy Order: Evaluate and Treat Home Health Nursing Order: Medical education Signs/symptoms of disease process Nursing assessment with vital signs I have seen patient Kim Miller on 10/14/17. My clinical findings support the need for the requested home health care services because: Ltd mobility - disease progression Deconditioned w/ increased weakness High risk of falls I certify that my clinical findings support that this patient is homebound because: Unsteady gait/balance Unsafe to leave home unassisted Unable to use public transportation Please draw weekly CBC to follow hemoglobin level Darnell Grajeda MD Oct 14, 2017 11:13
--- NOTE | 2017-10-14 18:03 | HHI.DS ---
cc: Adan Cee MD; Silvia Bhat MD; Vaibhav Seymour MD Discharge Summary Admission Date Oct 09, 2017 at 13:19 Discharge Date: Oct 14, 2017 Admitting Diagnosis Acute Ischemic CVA; Cardiopulmonary Arrest (1) Anemia ICD Code: D64.9 - Anemia, unspecified (2) Hematuria ICD Code: R31.9 - Hematuria, unspecified Status: Resolved (3) Warfarin-induced coagulopathy ICD Code: D68.32 - Hemorrhagic disorder due to extrinsic circulating 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; T45.515A - Adverse effect of 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, initial encounter (4) Elevated INR ICD Code: R79.1 - Abnormal coagulation profile Status: Acute (5) Atrial fibrillation ICD Code: I48.91 - Atrial fibrillation Status: Acute Procedures none Brief History - From Admission Patient is an 87-year-old male well-known to the service. He comes to the emergency department after possible cardiac arrest. Patient had to urinate and then returned to the main area in the house when he reported feeling awful to his and then he fell to the ground and became unresponsive. EMS was called and thought that he had no pulse on the scene and perform 2 minutes of chest compressions and noted return of circulation. Since then he has been in sinus rhythm. EMS and her noted weakness in the right arm and altered mental status. Upon arrival here he is noted to have some right sided weakness and some aphasia receptive and expressive stroke alert had been called has known to have atrial fibrillation takes Coumadin as well as aspirin for this. Is currently being treated for urosepsis with cefazolin 2 g IV every 8 hours Patient also has a history of a TAVR will continue anticoagulation if is able to swallow Have discussed with his and the patient and ER physician and ER nurse Patient is quite aphasic can get some things correct but not able to tell us where he is at does know that the president of [employer] is Bernard Tramalia But could not tell me that he was at [place] and at the hospital nor what city CBC/BMP: 10/14/17 0440 10/14/17 0440 Significant Findings Laboratory Tests Test 10/12/17 03:30 10/12/17 11:05 10/13/17 05:30 10/14/17 04:40 Prothrombin Time 15.7 SEC (9.8-11.6) 14.2 SEC (9.8-11.6) 13.8 SEC (9.8-11.6) White Blood Count 3.9 TH/MM3 (4.0-11.0) 3.0 TH/MM3 (4.0-11.0) 3.8 TH/MM3 (4.0-11.0) Red Blood Count 2.65 MIL/MM3 (4.50-5.90) 2.30 MIL/MM3 (4.50-5.90) 3.03 MIL/MM3 (4.50-5.90) Hemoglobin 8.6 GM/DL (13.0-17.0) 7.5 GM/DL (13.0-17.0) 9.6 GM/DL (13.0-17.0) Hematocrit 25.8 % (39.0-51.0) 22.3 % (39.0-51.0) 28.4 % (39.0-51.0) Red Cell Distribution Width 19.3 % (11.6-17.2) 18.4 % (11.6-17.2) 20.7 % (11.6-17.2) Platelet Count 71 TH/MM3 (150-450) 61 TH/MM3 (150-450) 67 TH/MM3 (150-450) Blood Urea Nitrogen 32 MG/DL (7-18) 31 MG/DL (7-18) Creatinine 1.47 MG/DL (0.60-1.30) 1.47 MG/DL (0.60-1.30) Random Glucose 135 MG/DL (74-106) 118 MG/DL (74-106) Calcium Level 7.9 MG/DL (8.5-10.1) 8.3 MG/DL (8.5-10.1) Estimat Glomerular Filtration Rate 45 ML/MIN (>89) 45 ML/MIN (>89) Neutrophils (%) (Auto) 77.8 % (16.0-70.0) Lymphocytes (%) (Auto) 7.2 % (9.0-44.0) Monocytes (%) (Auto) 10.2 % (0.0-8.0) Lymphocytes # (Auto) 0.3 TH/MM3 (1.0-4.8) Platelet Estimate LOW (NORMAL) Ovalocytes 1+ (NORMAL) PE at Discharge GENERAL: Well-nourished, well-developed patient. SKIN: Widespread bruising over both arms and right side of face HEAD: Normocephalic. EYES: No scleral icterus. No injection or drainage. Pupils equal round and reactive. Normal tracking. NECK: Supple, trachea midline. No JVD or lymphadenopathy. CARDIOVASCULAR: Regular rate and rhythm without murmurs, gallops, or rubs. RESPIRATORY: Breath sounds equal bilaterally. No accessory muscle use. GASTROINTESTINAL: Abdomen soft, non-tender, nondistended. EXTREMITIES: No cyanosis, or edema. NEUROLOGICAL: Awake, alert, and oriented x 3. No focal deficits. Strength is equal bilaterally. Patient is ambulatory and balance. Hospital Course 87-year-old male who was admitted following a syncopal episode where he was found pulseless and resuscitated prior to ER. Initially it was thought that he had an ischemic CVA, however further workup revealed a subdural and separate subarachnoid hematoma. His Coumadin level at time of admission was 4.9. He had hematuria and positive occult stools. Hemoglobin level at time of admission was 6.4. He received a total of 4 units of packed red blood cells during his hospitalization. He reports that he has a history of a neuroendocrine tremor 2 years ago, but that the location of the tumor was beyond the area that could be scoped. It was diagnosed with a PET scan. Hematuria that was present on admission stopped once his INR returned to normal. He was seen by a number of physicians here including neurosurgery, neurology, cardiology, oncology. He was offered a colonoscopy but declined at this time, he also declined cystoscope. He would prefer to have both of these worked up as an outpatient. Cardiology recommended 1 week off of blood thinners. Neurosurgery stated that he would be safe to resume blood thinners when appropriate. He is stable for discharge, and prefers to continue with workup as an outpatient. I recommended he restart baby aspirin this Friday which will be approximately 1 week following his admission. He has multiple follow-up scheduled over the next 6 weeks, urology is this , cardiology is on October 24, oncology within 3 weeks. Home health care will be attending him at home. I recommended weekly CBCs to follow his anemia. I ordered a PET scan to look into recurrence of neuroendocrine tumor as a possibility for his GI bleed (GI bleeding was his last presentation for this diagnosis). Cardiology: Please assist with selection of anticoagulant to protect him from risk of atrial fibrillation. Consideration of GI bleeding and hematuria. Oncology: Please follow-up with PET scan results and referred to GI for colonoscopy if no neuroendocrine tumor has recurred. Gastroenterology: The last recurrence of his neuroendocrine tumor was beyond what the scope could see. Diagnosed via PET scan. If PET scan is negative he will need a colonoscopy. Pt Condition on Discharge: Fair Discharge Disposition: Disch w/ Home Health Serv Discharge Time: > 30 minutes Discharge Instructions DIET: Follow Instructions for: Heart Healthy Diet Activities you can perform: Weight Bearing as Darnell Zazueta MD Oct 14, 2017 18:03
== END 2017-10-14 12:43 | disposition home health service (06) | DRG 41 ==
LOC: NEPE 11:23 → NEDA 13:19 → N05B 19:18
PROVIDERS: ADMIT Family Medicine; ATTEND Family Medicine
PROC: 30233N1 Transfusion of Nonautologous Red Blood Cells into Peripheral Vein, Percutaneous Approach (ICD-10-PCS; 2017-10-10)
PROC: 30233K1 Transfusion of Nonautologous Frozen Plasma into Peripheral Vein, Percutaneous Approach (ICD-10-PCS; 2017-10-11)
PROC: 0JH602Z Insertion of Monitoring Device into Chest Subcutaneous Tissue and Fascia, Open Approach (ICD-10-PCS; principal; 2017-10-13 08:15)
DX: S06.6X9A Traumatic subarachnoid hemorrhage with loss of consciousness of unspecified duration, initial encounter (principal); D68.32 Hemorrhagic disorder due to extrinsic circulating 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; E11.22 Type 2 diabetes mellitus with diabetic chronic kidney disease; D69.6 Thrombocytopenia, unspecified; I50.9 Heart failure, unspecified; I13.0 Hypertensive heart and chronic kidney disease with heart failure and stage 1 through stage 4 chronic kidney disease, or unspecified chronic kidney disease; G81.91 Hemiplegia, unspecified affecting right dominant side; I48.2 Chronic atrial fibrillation; R47.01 Aphasia; S06.5X9A Traumatic subdural hemorrhage with loss of consciousness of unspecified duration, initial encounter; E78.5 Hyperlipidemia, unspecified; I25.10 Atherosclerotic heart disease of native coronary artery without angina pectoris; K21.9 Gastro-esophageal reflux disease without esophagitis; N40.0 Benign prostatic hyperplasia without lower urinary tract symptoms; R29.717 NIHSS score 17; N18.9 Chronic kidney disease, unspecified; E78.00 Pure hypercholesterolemia, unspecified; I65.23 Occlusion and stenosis of bilateral carotid arteries; M10.9 Gout, unspecified; I07.1 Rheumatic tricuspid insufficiency; W18.30XA Fall on same level, unspecified, initial encounter; R31.9 Hematuria, unspecified; D64.9 Anemia, unspecified; T45.515A Adverse effect of 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, initial encounter; R29.6 Repeated falls; D50.9 Iron deficiency anemia, unspecified; K44.9 Diaphragmatic hernia without obstruction or gangrene; Z95.2 Presence of prosthetic heart valve; Z95.5 Presence of coronary angioplasty implant and graft; Z79.01 Long term (current) use of 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; Z85.028 Personal history of other malignant neoplasm of stomach; I25.2 Old myocardial infarction; Y92.008 Other place in unspecified non-institutional (private) residence as the place of occurrence of the external cause; Z86.73 Personal history of transient ischemic attack (TIA), and cerebral infarction without residual deficits
CPT/HCPCS: 33282; 36430; 70450; 70496; 70498; 70544; 70551; 71045; 80048; 80053; 80061; 80307; 81001; 82272; 82550; 82810; 82948; 83036; 83735; 84100; 84439; 84443; 84484; 85007; 85025; 85027; 85384; 85610; 85730; 86850; 86900; 86901; 86920; 86927; 93005; 93306; 93880; 94150; 95819; C1764; J0690; J1815; J2250; J3010; J7030; P9016; P9017; Q9967

== ENCOUNTER 2018-02-04 21:06 | Inpatient (IN) ==
--- NOTE | 2018-02-04 21:25 | ED ---
HPI General Chief complaint: Fall Stated complaint: Fall Time Seen by Provider: 02/04/18 21:19 Source: patient and EMS Mode of arrival: EMS Limitations: altered mental status History of Present Illness HPI Narrative: 87-year-old male patient with previous history of valve replacement, atrial fibrillation currently on Eliquis, presents to the ER today brought in by EMS after he fell hitting his head, with loss of consciousness, current GCS 14. He is nauseous, vomited on the way here. He denies any chest pains, shortness of breath, denies any other injuries. Related Data Home Medications Medication Instructions Recorded Confirmed apixaban [Eliquis] 2.5 mg PO BID 02/04/18 02/04/18 aspirin 81 mg PO DAILY 02/04/18 02/04/18 atorvastatin 40 mg PO DAILY 02/04/18 02/04/18 cholecalciferol (vitamin D3) 1,000 unit PO DAILY 02/04/18 02/04/18 [Vitamin D3] coenzyme Q10 [Co Q-10] 100 mg PO DAILY 02/04/18 02/04/18 ferrous gluconate 2 mg/kg PO TID 02/04/18 02/04/18 finasteride 5 mg PO DAILY 02/04/18 02/04/18 folic acid 1 mg PO DAILY 02/04/18 02/04/18 furosemide 40 mg PO BID 02/04/18 02/04/18 insulin detemir U-100 [Levemir 18 unit SUB-Q QPM 02/04/18 02/04/18 U-100 Insulin] loratadine [Claritin] 10 mg PO DAILY 02/04/18 02/04/18 magnesium 500 mg PO DAILY 02/04/18 02/04/18 metolazone 2.5 mg PO Q OTHER DAY 02/04/18 02/04/18 metoprolol succinate [Toprol XL] 12.5 mg PO BID 02/04/18 02/04/18 polyethylene glycol 3350 [Miralax] 17 g PO DAILY PRN 02/04/18 02/04/18 potassium chloride 20 meq PO BID 02/04/18 02/04/18 pyridoxine (vitamin B6) [Vitamin 100 mg PO DAILY 02/04/18 02/04/18 B-6] tamsulosin 0.4 mg PO DAILY 02/04/18 02/04/18 Allergies Allergy/AdvReac Type Severity Reaction Status Date / Time niacin Allergy Unknown Nausea/Vomi Verified 02/04/18 21:42 ting sitagliptin AdvReac Severe STOMACH Verified 02/04/18 21:42 PAIN Review of Systems Except as stated in HPI: all other systems reviewed are negative PMFSH History History Provided By: Patient Medical History Medical History Afib (Acute) Diabetes (Acute) GERD (gastroesophageal reflux disease) (Acute) History of stomach cancer (Acute) Hypertension (Acute) Stroke (Acute) Surgical History Surgical History History of cholecystectomy (Acute) S/p TAVR (transcatheter aortic valve replacement), bioprosthetic (Acute) Social History Social History Substance History: No History of Abuse Second Hand Smoke Exposure: No Smoking Status: Former smoker How Often Do You Have a Drink Containing Alcohol: Never Recent Travel in [facility] within the Last 8 Weeks: No Recent Out of Country Travel within the Last 8 Weeks: No Exam Narrative Exam Narrative: GENERAL: Well-developed elderly white male patient currently in moderate distress. On backboard with c-collar on. SKIN: Focused skin assessment warm/dry. HEAD: Notable right orbital area ecchymosis and abrasions over the left scalp. Normocephalic. EYES: Pupils small, equal and round, poorly reactive to light bilaterally. No scleral icterus. No injection or drainage. ENT: No nasal bleeding or discharge. Mucous membranes pink and moist. NECK: Trachea midline. No JVD. C-collar in place. CARDIOVASCULAR: Irregularly irregular. RESPIRATORY: No accessory muscle use. Clear to auscultation. Breath sounds equal bilaterally. CHEST: Nontender throughout without deformity or crepitance. No retractions or use of accessory muscles. GASTROINTESTINAL: Abdomen soft, non-tender, nondistended. Hepatic and splenic margins not palpable. Pelvis: Stable, nontender to palpation. EXTREMITIES: No clubbing, cyanosis, or edema. No joint tenderness, effusion, or edema noted. MUSCULOSKELETAL: No obvious deformities. No clubbing. No cyanosis. No edema. NEUROLOGICAL: Awake and alert. No obvious cranial nerve deficits. Motor grossly within normal limits. Normal speech. PSYCHIATRIC: Appropriate mood and affect; insight and judgment normal. Course Hospital Course: Patient was vomiting in the ER, some red blood, but patient has notable at epistaxis as well and IM Phenergan was given for nausea and vomiting. CT was obtained and the patient, which shows a right-sided subarachnoid bleed. No signs of shift. Case was discussed initially with Dr. 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 He would like reversal on Eliquis. Case was discussed with Dr. Jeronimo who agrees to admit the patient, and reversal of 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 was discussed as well and she thinks that Kcentra would be the best option at this point. I have discussed the findings with patient's and I discussed CODE STATUS with patient's . She would like him to be full code at this point. I was initially considering intubating the patient for airway protection due to the vomiting but on reevaluation at 10 PM, he is not vomiting anymore, and is mentating well, GCS 14 to 15. At this point, I will hold off on intubation. Initial Documented Vital Signs Temperature 97.9 F 02/04/18 21:12 Pulse Rate 77 02/04/18 21:12 Respiratory Rate 20 02/04/18 21:12 Blood Pressure 153/68 H 02/04/18 21:12 Pulse Oximetry 99 02/04/18 21:12 Last Documented Vital Signs Temperature 97.9 F 02/04/18 21:12 Pulse Rate 80 02/04/18 21:49 Respiratory Rate 20 02/04/18 21:49 Blood Pressure 143/65 H 02/04/18 21:49 Pulse Oximetry 97 02/04/18 21:49 Critical Care Time Critical Care Time: Yes Total Critical Care Time: 30 Attestation: Aggregate critical care time was 30 minutes. Time to perform other separately billable procedures was not included in the critical care time. My time did not include minutes spent treating any other patients simultaneously or on activities that did not directly contribute to the patient's treatment. The services I provided to this patient were to treat and/or prevent clinically significant deterioration that could result in: Worsening ICH, herniation, I provided critical care services requiring my management, as noted below: Chart data review, documentation time, medication orders and management, vital sign assessments/reviewing monitor data, ordering and reviewing lab tests, ordering and interpreting/reviewing x-rays and diagnostic studies, care of the patient and discussion of the patient with the admitting physicians. Medical Decision Making Lab Data Result diagrams: 02/04/18 21:35 02/04/18 21:35 Imaging Data Radiologist's impression: Face CT 02/04/18 21:19 CONCLUSION: 1. No facial bone fractures seen. 2. Opacified frontal ethmoid and maxillary sinuses with evidence of resorption of nasal and ethmoid septa suggests chronic process. There is, however, an air- fluid level in the right maxillary sinus. Head CT 02/04/18 21:19 CONCLUSION: 1. Evidence of closed head injury with subarachnoid hemorrhage extending from low to high convexity on the right side. There is also a focal parenchymal hemorrhage in the highest convexity left frontal region. 2. Large right parietal scalp hematoma without evidence of skull fracture. 3. Opacified frontal, ethmoid, and maxillary sinuses. Discharge Plan Discharge Disposition Patient Disposition: 30 Still Patient Discharge Condition Condition: Critical Discharge Details Anticipated Discharge Date: 02/04/18 Diagnosis: Subarachnoid bleed Physicians Team ED Provider: Margarita Sierra Primary Care Provider: UNKNOWN, Attending Provider: Patricia Jeronimo Rxs /Orders / Referrals /Forms Prescriptions: No Action furosemide 40 mg Tablet 40 mg PO BID RF: 0 metolazone 2.5 mg Tablet 2.5 mg PO Q OTHER DAY RF: 0 atorvastatin 40 mg Tablet 40 mg PO DAILY RF: 0 polyethylene glycol 3350 [Miralax] 17 gram Powder In Packet 17 g PO DAILY PRN (Reason: Constipation) RF: 0 tamsulosin 0.4 mg Capsule,Extended Release 24hr 0.4 mg PO DAILY RF: 0 aspirin 81 mg Tablet,Chewable 81 mg PO DAILY RF: 0 folic acid 1 mg Tablet 1 mg PO DAILY RF: 0 magnesium 250 mg Tablet 500 mg PO DAILY RF: 0 pyridoxine (vitamin B6) [Vitamin B-6] 100 mg Tablet 100 mg PO DAILY RF: 0 metoprolol succinate [Toprol XL] 25 mg Tablet Extended Release 24 Hr 12.5 mg PO BID RF: 0 finasteride 5 mg Tablet 5 mg PO DAILY RF: 0 loratadine [Claritin] 10 mg Tablet 10 mg PO DAILY RF: 0 coenzyme Q10 [Co Q-10] 100 mg Capsule 100 mg PO DAILY RF: 0 insulin detemir U-100 [Levemir U-100 Insulin] 100 unit/mL Solution 18 unit SUB-Q QPM RF: 0 cholecalciferol (vitamin D3) [Vitamin D3] 1,000 unit Tablet 1,000 unit PO DAILY RF: 0 ferrous gluconate 236 mg (27 mg iron) Tablet 2 mg/kg PO TID RF: 0 apixaban [Eliquis] 2.5 mg Tablet 2.5 mg PO BID RF: 0 potassium chloride 20 mEq Tablet Extended Release 20 meq PO BID RF: 0 Discharge Interventions Interventions: Vital Signs Last Done: 02/04/18 21:49 Status ED Status: Admitted Patient
[2018-02-04] MEDS ORDERED: Succinylcholine Inj 100 MG/5 ML Syringe IV.PUSH ONE (21:38)
[2018-02-04] MEDS ORDERED: Etomidate Inj 20 MG/10 ML Ampul IV.PUSH ONE (21:38)
[2018-02-04] MEDS ORDERED: Lidocaine 2% 100 MG/5 ML Syringe IV.PUSH ONE (21:38)
--- NOTE | 2018-02-04 21:48 | CT ---
EXAM DATE: 02/04/2018 9:36 PM EDT AGE/SEX: 87 years / Male INDICATIONS: Trauma; fall. CLINICAL DATA: This is the patient's initial encounter. Patient reports that signs and symptoms have been present for 1 day and indicates a pain score of 10/10. MEDICAL/SURGICAL HISTORY: Stroke. Carcinoma, gastric. None. RADIATION DOSE: 56.35 CTDI (mGy) COMPARISON: [facility] – [place] BRAIN W/O CONTRAST, 10/09/2017. . TECHNIQUE: CT of the head without contrast. Using automated exposure control and adjustment of the mA and/or kV according to patient size, radiation dose was kept as low as reasonably achievable to ob tain optimal diagnostic quality images. DICOM format image data is available electronically for revi ew and comparison. FINDINGS: The patient's head is canted in the gantry creating some asymmetries. Cerebrum: Abnormal. There is prominent subarachnoid hemorrhage on the right side extending from low convexity to highest convexity in the temporal and parietal region. No extra-axial blood seen. The ve ntricles are symmetric in size and there is no evidence of midline shift. In the contralateral (left) high convexity frontal region, there is a focal hyperdensity measuring 7 mm along an upper gyrus whi ch could represent parenchymal hemorrhage. No effacement of the adjacent sulci. Posterior Fossa: The cerebellum and brainstem are intact. The 4th ventricle is midline. The cerebe llopontine angle is unremarkable. Extracranial: The visualized portion of the orbits is intact. Opacification of the ethmoids, right f rontal and left maxillary sinus. Air-fluid level in the right maxillary sinus. Skull: Large right mid and high parietal scalp hematoma measuring up to 2.1 cm in thickness. No radi opaque foreign bodies. The calvaria is intact. No evidence of skull fracture. CONCLUSION: 1. Evidence of closed head injury with subarachnoid hemorrhage extending from low to high convexity on the right side. There is also a focal parenchymal hemorrhage in the highest convexity left frontal region. 2. Large right parietal scalp hematoma without evidence of skull fracture. 3. Opacified frontal, ethmoid, and maxillary sinuses. Electronically signed by: Matt Bhatti MD 02/04/2018 9:47 PM EDT
--- NOTE | 2018-02-04 21:52 | CT ---
EXAM DATE: 02/04/2018 9:44 PM EDT AGE/SEX: 87 years / Male INDICATIONS: Trauma; fall. CLINICAL DATA: This is the patient's initial encounter. Patient reports that signs and symptoms have been present for 1 day and indicates a pain score of 10/10. MEDICAL/SURGICAL HISTORY: Carcinoma, gastric. Cardiovascular disease. None. RADIATION DOSE: 21.32 CTDI (mGy) COMPARISON: No prior exams available for comparison. TECHNIQUE: Contiguous images in the axial and coronal planes were obtained using helical multirow de tector technique. Using automated exposure control and adjustment of the mA and/or kV according to p atient size, radiation dose was kept as low as reasonably achievable to obtain optimal diagnostic devyn lity images. DICOM format image data is available electronically for review and comparison. FINDINGS: CT had had demonstrated large right scalp hematoma and right subarachnoid hemorrhage. There is opacification of the right frontal sinus and bilateral ethmoids with resorption of bony sept a in the ethmoids and resorption of the turbinates. There is complete opacification of the left maxil dee sinus and air-fluid level in the right maxillary sinus. The sphenoid sinuses are clear. No fracture seen in the maxilla, mandible, zygomatic arches, nasal bones, or pterygoid plates. The in fraorbital rim is intact bilaterally. CONCLUSION: 1. No facial bone fractures seen. 2. Opacified frontal ethmoid and maxillary sinuses with evidence of resorption of nasal and ethmoid septa suggests chronic process. There is, however, an air-fluid level in the right maxillary sinus. Electronically signed by: Matt Bhatti MD 02/04/2018 9:51 PM EDT
[2018-02-04] MEDS ORDERED: Prothrombin Complex Conc Inj 4,500 UNIT in Syringe/Bag 1 EACH IV.SIG ONE (22:23)
--- NOTE | 2018-02-04 22:26 | P.HPCC ---
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 Reportedly he was watching TV and stood up to walk to the bathroom at about 20:10 and fell on a tile floor hitting the right side of his head. His reports brief loss of consciousness. No noted seizure activity. [facility] was called. Vomited x1 during transport. GCS was 14 on arrival. In the ED workup included CT brain which demonstrated R temporoparietal subarachnoid hemorrhage and focal L frontal intraparenchymal hemorrhage. The emergency department physician discussed with Dr. Montenegro who requested Eliquis reversal. Patient's states that he last took Eliquis at 18:00 on 02/04. Of note, patient had a fall and presented in September 2017 with R hemiparesis. He had been on warfarin and initial CT negative. 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 He was felt to have M2 segment stroke. He was not administered TPA due to multiple contraindications. On followup imaging, he was found to have L subarachnoid hemorrhage, small r subdural without shift. He was followed by neurology and neurosurgery; no surgical intervention.. states he was discharged home with home therapy and was not noted to have residual weakness. - Diagnosis (1) CKD (chronic kidney disease) stage 4, GFR 15-29 ml/min (2) Fall (3) Scalp hematoma (4) H/O stroke within last year (5) TBI (traumatic brain injury) (6) BPH (benign prostatic hyperplasia) (7) Subconjunctival hemorrhage of right eye (8) H/O malignant neuroendocrine tumor (9) Thrombocytopenia (10) Iron deficiency anemia (11) S/P TAVR (transcatheter aortic valve replacement) (12) Subarachnoid bleed (13) Chronic anticoagulation Inpatient Certification: I certify that the inpatient services were ordered in accordance with Medicare regulations governing the order. This includes certification that hospital inpatient services are reasonable and necessary and in the case of services not specified as inpatient-only under 42 CFR 419.22(n), that they are appropriately provided as inpatient services in accordance to with the 2-midnight benchmark under 43 CFR 412.3(e) Review of Systems Constitutional: Denies fever(s) Eyes: Denies change in vision Ears, Nose, Mouth, and Throat: Reports nosebleed Cardiovascular: Denies chest pain, Denies shortness of breath Gastrointestinal: Denies abdominal pain Genitourinary: Denies painful urination Musculoskeletal: Denies back pain Neurologic: Reports confusion, Denies loss of vision, Denies seizure-like activity Endocrine: Denies cold intolerance Hematologic/Lymphatic: Reports easy bruising Allergic/Immunologic: Denies hives PMFSH - History History Provided By: Patient, Family Member - Medical History Medical History: Medical History (Last Updated 02/05/18 @ 02:10 by Patricia Jeronimo MD) Afib COPD (chronic obstructive pulmonary disease) Diabetes GERD (gastroesophageal reflux disease) Hx of Moh's micrographic surgery for skin cancer Hx of malignant neuroendocrine tumor Hypertension Stroke - Surgical History Surgical History: Surgical History (Last Updated 02/05/18 @ 02:10 by Patricia Jeronimo MD) H/O cataract removal with insertion of prosthetic lens H/O resection of small bowel History of cholecystectomy History of cholecystectomy History of loop recorder History of tonsillectomy Hx of colonoscopy S/p TAVR (transcatheter aortic valve replacement), bioprosthetic - Tobacco History Second Hand Smoke Exposure: No Tobacco Use In Past 30 Days: No Smoking Status: Former smoker Years Smoked: 17 - Alcohol History How Often Do You Have a Drink Containing Alcohol: Never - Substance Use History Substance History: No History of Abuse - Travel History Recent Travel in the [place] Within the Last 8 Weeks: No Recent Travel Out of the Country Within the Last 8 Weeks: No - Immunization History Tetanus Immunization: <5 Years Hx Influenza Vaccine This Season: No Medications and Allergies Active Medications: Active Medications Prothrombin Complex Concent ( (Human) 4,500 unit/ Syringe/Bag) 0 mls @ 500 mls/ hr IV.SIG ONCE ONE Stop: 02/04/18 22:24 Sodium Chloride (Ns Flush) 2 ml IV.FLUSH PRN PRN PRN Reason: FLUSH AFTER USING IV ACCESS Sodium Chloride (Ns Flush) 2 ml IV.FLUSH PRN PRN PRN Reason: FLUSH AFTER USING IV ACCESS Allergies Allergy/AdvReac Type Severity Reaction Status Date / Time niacin Allergy Unknown Nausea/Vomi Verified 02/04/18 21:42 ting sitagliptin AdvReac Severe STOMACH Verified 02/04/18 21:42 PAIN Home Medications Medication Instructions Recorded Confirmed Type apixaban [Eliquis] 2.5 mg PO BID 02/04/18 02/04/18 History aspirin 81 mg PO DAILY 02/04/18 02/04/18 History atorvastatin 40 mg PO DAILY 02/04/18 02/04/18 History cholecalciferol (vitamin D3) 1,000 unit PO DAILY 02/04/18 02/04/18 History [Vitamin D3] coenzyme Q10 [Co Q-10] 100 mg PO DAILY 02/04/18 02/04/18 History ferrous gluconate 2 mg/kg PO TID 02/04/18 02/04/18 History finasteride 5 mg PO DAILY 02/04/18 02/04/18 History folic acid 1 mg PO DAILY 02/04/18 02/04/18 History furosemide 40 mg PO BID 02/04/18 02/04/18 History insulin detemir U-100 [Levemir 18 unit SUB-Q QPM 02/04/18 02/04/18 History U-100 Insulin] loratadine [Claritin] 10 mg PO DAILY 02/04/18 02/04/18 History magnesium 500 mg PO DAILY 02/04/18 02/04/18 History metolazone 2.5 mg PO Q OTHER DAY 02/04/18 02/04/18 History metoprolol succinate [Toprol XL] 12.5 mg PO BID 02/04/18 02/04/18 History polyethylene glycol 3350 [Miralax] 17 g PO DAILY PRN 02/04/18 02/04/18 History potassium chloride 20 meq PO BID 02/04/18 02/04/18 History pyridoxine (vitamin B6) [Vitamin 100 mg PO DAILY 02/04/18 02/04/18 History B-6] tamsulosin 0.4 mg PO DAILY 02/04/18 02/04/18 History Results - Labs CBC & Chem 7: 02/05/18 03:24 02/05/18 03:24 - Imaging Impressions Face CT 02/04/18 21:19 CONCLUSION: 1. No facial bone fractures seen. 2. Opacified frontal ethmoid and maxillary sinuses with evidence of resorption of nasal and ethmoid septa suggests chronic process. There is, however, an air- fluid level in the right maxillary sinus. Head CT 02/04/18 21:19 CONCLUSION: 1. Evidence of closed head injury with subarachnoid hemorrhage extending from low to high convexity on the right side. There is also a focal parenchymal hemorrhage in the highest convexity left frontal region. 2. Large right parietal scalp hematoma without evidence of skull fracture. 3. Opacified frontal, ethmoid, and maxillary sinuses. Exam Vital signs: Vital Signs 02/04/18 21:12 02/04/18 21:44 02/04/18 21:45 Temperature 97.9 F Pulse Rate 77 75 Respiratory Rate 20 Blood Pressure 153/68 H Pulse Oximetry 99 100 02/04/18 21:49 Temperature Pulse Rate 80 Respiratory Rate 20 Blood Pressure 143/65 H Pulse Oximetry 97 Intake & Output 02/04/18 02/04/18 02/05/18 06:59 18:59 06:59 Weight 88.451 kg Narrative: GENERAL: Elderly male who is laying in ED stretcher. He is awake and conversant. SKIN: Warm and dry. Gauze dressing in place over right forearm. HEAD: Normocephalic. Large scalp hematoma overlying R temporal region EYES: R periorbital hematoma, Pupils equal and round, 3 mm and reactive. Subconjunctival hemorrhage right lateral bulbar conjunctiva. No scleral icterus. No drainage. ENT: Trickle of epistaxis from bilateral nares, no septal hematoma. . Mucous membranes pink and moist. NECK: Trachea midline. No JVD. No midline tenderness, stepoff or deformity. CARDIOVASCULAR: irregular. No murmurs rubs or gallops. RESPIRATORY: No accessory muscle use. Clear to auscultation. Breath sounds equal bilaterally. On RA. GASTROINTESTINAL: Abdomen soft, non-tender, nondistended. Healed vertical scar upper abdomen. MUSCULOSKELETAL: Extremities without clubbing, cyanosis. Edema 2+ bilateral lower extremities. NEUROLOGICAL: Awake and alert, at times confused. . Oriented to person, place, not to year (2016). No pronator drift, no tremor. 5/5 biceps/triceps bilaterally, does not cooperate with hand intrinsics but well testing operator strength is normal bilaterally. 5/5 plantar flexion bilaterally, does not cooperate with dorsiflexion. Bilateral hip flexion appears symmetric, at least 3/5 but unable to assess strength against resistance due to difficulty with comprehension. Caprini VTE Risk Assessment Caprini VTE Risk Assessment: Moderate/High Risk (score >= 2) VTE Pharmacological Exception Reason: Hemorrhage Caprini Risk Assessment Model: Point Value = 1 Point Value = 2 Point Value = 3 Point Value = 5 Age 41-60 Minor surgery BMI > 25 kg/m2 Swollen legs Varicose veins or History of unexplained or recurrent spontaneous Oral contraceptives or hormone replacement Sepsis (< 1 month) Serious lung disease, including pneumonia (< 1 month) Abnormal pulmonary function Acute myocardial infarction Congestive heart failure (< 1 month) History of inflammatory bowel disease Medical patient at bed rest Age 61-74 Arthroscopic surgery Major open surgery (> 45 min) Laparoscopic surgery (> 45 min) Malignancy Confined to bed (> 72 hours) Immobilizing plaster cast Central venous access Age >= 75 History of VTE Family history of VTE Factor V Leiden Prothrombin [id number] Lupus anticoagulant Anticardiolipin antibodies Elevated serum homocysteine Heparin-induced thrombocytopenia Other congenital or acquired thrombophilia Stroke (< 1 month) Elective arthroplasty Hip, pelvis, or leg fracture Acute spinal cord injury (< 1 month) Prophylaxis Regimen: Total Risk Factor Score Risk Level Prophylaxis Regimen 0-1 Low Early ambulation 2 Moderate Order ONE of the following: *Sequential Compression Device (SCD) *Heparin 5000 units SQ BID 3-4 Higher Order ONE of the following medications: *Heparin 5000 units SQ TID *Enoxaparin/Lovenox 40 mg SQ daily (WT < 150 kg, CrCl > 30 mL/min) *Enoxaparin/Lovenox 30 mg SQ daily (WT < 150 kg, CrCl > 10-29 mL/min) *Enoxaparin/Lovenox 30 mg SQ BID (WT < 150 kg, CrCl > 30 mL/min) AND/OR *Sequential Compression Device (SCD) 5 or more Highest Order ONE of the following medications: *Heparin 5000 units SQ TID (Preferred with Epidurals) *Enoxaparin/Lovenox 40 mg SQ daily (WT < 150 kg, CrCl > 30 mL/min) *Enoxaparin/Lovenox 30 mg SQ daily (WT < 150 kg, CrCl > 10-29 mL/min) *Enoxaparin/Lovenox 30 mg SQ BID (WT < 150 kg, CrCl > 30 mL/min) AND *Sequential Compression Device (SCD) Assessment and Plan - Problem List (1) CKD (chronic kidney disease) stage 4, GFR 15-29 ml/min Code(s): N18.4 - Chronic kidney disease, stage 4 (severe) Status: Acute (2) Fall Code(s): W19.XXXA - Unspecified fall, initial encounter Status: Acute (3) Scalp hematoma Code(s): S00.03XA - Contusion of scalp, initial encounter Status: Acute (4) H/O stroke within last year Code(s): Z86.73 - Personal history of transient ischemic attack (TIA), and cerebral infarction without residual deficits Status: Acute (5) TBI (traumatic brain injury) Code(s): S06.9X9A - Unspecified intracranial injury with loss of consciousness of unspecified duration, initial encounter Status: Acute (6) BPH (benign prostatic hyperplasia) Code(s): N40.0 - Benign prostatic hyperplasia without lower urinary tract symptoms Status: Chronic (7) Subconjunctival hemorrhage of right eye Code(s): H11.31 - Conjunctival hemorrhage, right eye Status: Acute (8) H/O malignant neuroendocrine tumor Code(s): Z85.9 - Personal history of malignant neoplasm, unspecified Status: Resolved (9) Thrombocytopenia Code(s): D69.6 - Thrombocytopenia, unspecified Status: Chronic (10) Iron deficiency anemia Code(s): D50.9 - Iron deficiency anemia, unspecified Status: Chronic (11) S/P TAVR (transcatheter aortic valve replacement) Code(s): Z95.2 - Presence of prosthetic heart valve Status: Acute (12) Subarachnoid bleed Code(s): I60.9 - Nontraumatic subarachnoid hemorrhage, unspecified Status: Acute (13) Chronic anticoagulation Code(s): Z79.01 - FDC (current) use of 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 Status: Chronic - Assessment and Plan Plan: NEURO: TBI with loss of consciousness R temporoparietal subarachnoid hemorrhage in left frontal intraparenchymal hemorrhage. Right scalp hematoma Fall CT maxillofacial is negative for acute fracture. Has some acute epistaxis, holding pressure and will reassess after Kcentra and consider nasal packing. CT C-spinenegative for fracture CT brain 02/04 with traumatic SAH. Not currently candidate for CTA due to renal dysfunction. Prior CTA 10/09/17 negative for vascular malformation or aneurysm ( L carotid occlusion noted) Followup CT in am. Cardene if needed to maintain SBP <150. Keppra not currently indicated based on mild TBI by GCS criteria. Hold Eliquis, Give Kcentra as per below. Neurosurgery consulted, Dr. Montenegro RESP: Prior history of tobacco abuse IS q 1 hour awake CV: HTN Atrial fibrillation on chronic anti-coagulation with Eliquis History of aortic stenosis now status post TAVR 08/2017. Cardene as needed to maintain systolic blood pressure less than 150 Hold Eliquis and ASA due to ICH. Hold statin, metoprolol, lasix and metolazone for now. Consider resuming po meds if he passes speech swallow eval. GI: GERD Protonix for stress ulcer prophylaxis and history of GERD. Speech therapy to evaluate swallow. Hold off on NGT insertion until epistaxis improves. FEN/RENAL: BPH s/p TUMT CKD stage IIIb-IV Acute hypokalemia states he has been referred to Dr. Kamila Jha but hasn't followed up yet. Renal u/s, place lópez if e/o obstruction. Hold tamulosin, finasteride until able to take po. Has been on lasix and metolazone for edema. Holding IVF considering significant peripheral edema, mild pulm edema. Likely resume diuretics soon, though correcting hypokalemia is the priority. KCL 80 MEQ IV now and recheck. Can add po replacement if passes swallow eval. ID: Monitor for signs and symptoms of infection HEME: History of neuroendocrine tumor status post small bowel resection in 2014 Chronic iron deficiency anemia Chronic thrombocytopenia He has been followed by Dr. Adan Cee as an outpatient for above, follow PET scans have shown no residual disease. REsume iron supplementation, B6, folic acid if passes swallow eval. ENDO: Diabetes mellitus Hold detemir Monitor glucose AC/at bedtime and initiate medium dose insulin sliding scale as indicated PROPH: SCDs for DVT prophylaxis. He has chronically been on Eliquis which is on hold but pharmacologic DVT prophylaxis is contraindicated due to subarachnoid hemorrhage. Protonix for stress ulcer prophylaxis ACCESS: Peripheral IV providing adequate access at this time Patient is critically ill with TBI including traumatic subarachnoid hemorrhage in need of urgent reversal anticoagulation to decrease chance of expansion of hemorrage. Discussed with ED physician and ED RN. updated at bedside Patient and his indicate that he is full code Patient is of advanced age and has undergone successful TAVR, however his subsequent course has been complicated by readmission for sepsis, ischemic stroke with fall and subsequent SAH and SDH, now additional fall and SAH. He has known left carotid occlusion and A fib which place him at risk for embolic stroke, though obviously with hemorrhage while on anticoagulation. He is at risk for further complication, will ask palliative care to follow and assist with ongoing address of goals of care/code status. Critical care time 50 minutes exclusive of separately billable procedures
--- NOTE | 2018-02-04 22:27 | CT ---
EXAM DATE: 02/04/2018 9:48 PM EDT AGE/SEX: 87 years / Male INDICATIONS: Trauma; fall. CLINICAL DATA: This is the patient's initial encounter. Patient reports that signs and symptoms have been present for 1 day and indicates a pain score of 10/10. MEDICAL/SURGICAL HISTORY: Cardiovascular disease. Hypertension. Stroke. None. RADIATION DOSE: 21.96 CTDI (mGy) COMPARISON: No prior exams available for comparison. TECHNIQUE: Contiguous axial images were obtained using helical multirow detector technique. The vol umetric data was post-processed with multiplanar reconstruction in oblique axial, sagittal, and coron al planes. Using automated exposure control and adjustment of the mA and/or kV according to patient s ize, radiation dose was kept as low as reasonably achievable to obtain optimal diagnostic quality darrell ges. DICOM format image data is available electronically for review and comparison. FINDINGS: There is normal alignment of the vertebral bodies of the cervical spine and preservation of vertebral body height. Moderate discogenic degenerative changes are present from C3 through C7 with interspace narrowing and osteophytes. The discogenic degenerative changes are more severe at C6-7 when compared to the other levels. Posterior elements are in normal alignment without evidence of locked or perche d facets. Advanced hypertrophic changes are seen in the facet joints of the mid and lower cervical sp ine. The atlantoaxial articulation is intact.. C2-3: No fracture seen. The neural foramina are patent. C3-4: No fracture seen. The neural foramina are patent. C4-5: No fracture seen. The neural foramina are patent. C5-6: No fracture seen. Moderate severity bilateral bony neural foraminal stenosis. C6-7: No fracture seen. The neural foramina are patent. C7-T1: No fracture seen. The neural foramina are patent. CONCLUSION: 1. No evidence of compression deformity or spondylolisthesis. 2. Multilevel discogenic degenerative changes and facet joint hypertrophy. Electronically signed by: Matt Bhatti MD 02/04/2018 10:26 PM EDT
[2018-02-04 22:29] LABS: Baso % (Auto) 0.7 % (0.0-2.0); Eos # (Auto) 0.1 th/mm3 (0.0-0.4); Hematocrit 27.6 % (39.0-51.0); Hemoglobin 9.3 gm/dL (13.0-17.0); Lymph # (Auto) 0.3 th/mm3 (1.0-4.8); Lymph % (Auto) 7.5 % (9.0-44.0); Mean Corpuscular HGB Conc 33.8 % (32.0-36.0); Mean Corpuscular Hemoglobin 32.7 pg (27.0-34.0); Mean Corpuscular Volume 96.6 fL (80.0-100.0); Mean Platelet Volume 10.6 fL (7.0-11.0); Mono # (Auto) 0.3 th/mm3 (0.0-0.9); Mono % (Auto) 8.1 % (0.0-8.0); Neut # (Auto) 3.3 th/mm3 (1.8-7.7); Neut % (Auto) 80.7 % (16.0-70.0); Platelet Count 86 th/mm3 (150-450); Red Blood Count 2.85 mil/mm3 (4.50-5.90); Red Cell Distribution Width 15.3 % (11.6-17.2); White Blood Count 4.1 th/mm3 (4.0-11.0)
--- NOTE | 2018-02-04 22:34 | XR ---
EXAM DATE: 02/04/2018 10:13 PM EDT AGE/SEX: 87 years / Male INDICATIONS: CLINICAL DATA: This is the patient's encounter. Patient reports that signs and symptoms have been pr esent for and indicates a pain score of . MEDICAL/SURGICAL HISTORY: . Hypercholesterolemia. Hernia, hiatal. Diabetes mellitus type 2. Car cinoma, stomach.SURGICAL HISTORY : Tonsillectomy. Coronary artery stent. Prostatectomy. Cataracts wit h lens. Cardiac COMPARISON: [facility] [place], CHEST SINGLE AP, 10/09/2017. . FINDINGS: The lungs are symmetrically aerated. There is some indistinctness of the central bronchopulmonary mar kings, similar to prior chest x-ray September 2017. The heart is enlarged, stable from prior. Prosthetic aortic valve. Both hemidiaphragms are well delineated. Moderate curvature of the thoracic spine conve x towards the right. Paget's disease proximal right humerus. CONCLUSION: Cardiomegaly and central bronchopulmonary markings indistinctness similar to prior. Electronically signed by: Matt Bhatti MD 02/04/2018 10:33 PM EDT
[2018-02-04 22:40] LABS: Activated Partial Thrombo Time 30.1 sec (24.3-30.1); INR 1.4 Ratio; Prothrombin Time 14.5 sec (9.8-11.6)
--- NOTE | 2018-02-04 22:54 | XR ---
EXAM DATE: 02/04/2018 10:16 PM EDT AGE/SEX: 87 years / Male INDICATIONS: Patient fell tonight, pain all over. CLINICAL DATA: This is the patient's initial encounter. Patient reports that signs and symptoms have been present for 1 day and indicates a pain score of 8/10. MEDICAL/SURGICAL HISTORY: . Hypercholesterolemia. Hernia, hiatal. Diabetes mellitus type 2. Car cinoma, stomach.SURGICAL HISTORY : Tonsillectomy. Coronary artery stent. Prostatectomy. Cataracts wit h lens. Cardiac . SURGICAL HISTORY : Tonsillectomy. Coronary artery stent. Prostatectomy. Cataracts with lens. Cardiac COMPARISON: No prior exams available for comparison. FINDINGS: Mild image degradation due to increased scatter. Findings bony detail is obscured as a result. The jo ann [place] pelvic ring is grossly intact. No fracture seen. Mild degenerative changes in both hips. Rounded c alcification in the midline pelvis measures 2 cm. CONCLUSION: No gross bony abnormality seen. Electronically signed by: Matt Bhatti MD 02/04/2018 10:52 PM EDT
[2018-02-04 22:58] LABS: Calcium 8.7 mg/dL (8.5-10.1); Carbon Dioxide 31.7 meq/L (21.0-32.0)
[2018-02-04 23:04] LABS: Potassium 2.4 meq/L (3.5-5.1)
[2018-02-04 23:06] LABS: Ovalocytes 1+; Platelet Morphology Normal (Normal)
[2018-02-04] MEDS ORDERED: Bisacodyl 10 MG Supp RECTAL PRN (23:31)
[2018-02-04] MEDS ORDERED: niCARdipine Inj 25 MG in Sodium Chlor 0.9% Inj 240 ML IV.CONT PRN (23:39)
[2018-02-04] MEDS: Potassium Chlor 20 mEq Premix 20 MEQ/100 ML PIGGYBACK IV.SIG SCH (23:56)
[2018-02-05] MEDS: Potassium Chlor 20 mEq Premix 20 MEQ/100 ML PIGGYBACK IV.SIG SCH ×3 (02:29→06:32)
[2018-02-05] MEDS ORDERED: Chlorhexidine Gluconate 2% 1 Pack (2 Cloths) TOPICAL PRN (04:00)
[2018-02-05 04:10] LABS: Baso % (Auto) 0.9 % (0.0-2.0); Eos % (Auto) 0.2 % (0.0-4.0); Hematocrit 23.7 % (39.0-51.0); Hemoglobin 7.9 gm/dL (13.0-17.0); Lymph # (Auto) 0.1 th/mm3 (1.0-4.8); Mean Corpuscular HGB Conc 33.4 % (32.0-36.0); Mean Corpuscular Hemoglobin 32.5 pg (27.0-34.0); Mean Corpuscular Volume 97.2 fL (80.0-100.0); Mean Platelet Volume 10.5 fL (7.0-11.0); Mono # (Auto) 0.4 th/mm3 (0.0-0.9); Mono % (Auto) 8.4 % (0.0-8.0); Neut # (Auto) 3.9 th/mm3 (1.8-7.7); Neut % (Auto) 87.5 % (16.0-70.0); Platelet Count 68 th/mm3 (150-450); Red Blood Count 2.44 mil/mm3 (4.50-5.90); Red Cell Distribution Width 14.9 % (11.6-17.2); White Blood Count 4.4 th/mm3 (4.0-11.0)
[2018-02-05] MEDS: Chlorhexidine Gluconate 2% 1 Pack (2 Cloths) TOPICAL SCH (04:35)
[2018-02-05 04:46] LABS: Calcium 8.3 mg/dL (8.5-10.1); Carbon Dioxide 31.8 meq/L (21.0-32.0); Magnesium 2.1 mg/dL (1.5-2.5); Phosphorus 3.9 mg/dL (2.5-4.9)
[2018-02-05 04:49] LABS: Potassium 2.9 meq/L (3.5-5.1)
[2018-02-05 05:11] LABS: Platelet Morphology Normal (Normal)
[2018-02-05] MEDS ORDERED: Dextrose 50% in Water 50 ML Vial IV.PUSH PRN (09:00)
--- NOTE | 2018-02-05 10:00 | US ---
EXAM DATE: 02/05/2018 9:26 AM EDT AGE/SEX: 87 years / Male INDICATIONS: Chronic kidney disease. CLINICAL DATA: This is the patient's initial encounter. Patient reports that signs and symptoms have been present for 2 days and indicates a pain score of 0/10. MEDICAL/SURGICAL HISTORY: Chronic obstructive pulmonary disease. Diabetes. Gastroesophageal r eflux disease. Chronic Kidney Disease. Hypertension. Stroke. Moh's Micrographic surgery for Skin Cancer. Cholecystectomy. Tonsillectomy. Cataract removal with insertion of prosthetic lens. Small bowel resection. Colonoscopy. Transcatheter Aortic Valve Replacement (bioprosthetic). COMPARISON: [facility] [place], CT ABDOMEN & PELVIS W/O CONTRAST, 09/19/2017. . MEASUREMENTS: Right Kidney:__12.2 x 5.6 x 5.3 cm Left Kidney:__11.1 x 5.6 x 5.7 cm FINDINGS: Right Kidney: Diffusely increased cortical echogenicity. No hydronephrosis or significant renal calcu li. Multiple anechoic cysts with a dominant anechoic cyst in the superior pole measuring 7.2 cm. Left Kidney: Diffusely increased cortical echogenicity. No hydronephrosis or significant renal calcul i. Multiple anechoic cysts with the largest measuring 1.5 cm in the inferior pole. Bladder: Within normal limits given the degree of distension. Other: Prominent prostate. Small amount of ascites. CONCLUSION: 1. Echogenic kidneys consistent with medical renal disease. No evidence for obstructive uropathy. 2. Bilateral renal cysts with a dominant 7.2 cm cyst in the superior pole of the right kidney. 3. Small amount ascites. 4. Prominent prostate. Electronically signed by: Tyson García MD 02/05/2018 9:59 AM EDT
--- NOTE | 2018-02-05 10:02 | P.CONPAL ---
Consult Service: Palliative Care Requesting Physician: Patricia Jeronimo Reason for Consult: a. To assist with evaluation and management of symptoms including: dyspnea/ cough, pain, debility b. To assist medical decision maker(s) with: better understanding of current medical conditions; weighing benefits/burdens of medical treatment options; making medical treatment decisions. Primary Care Provider: UNKNOWN History of Present Illness History of Present Illness: This is an 80 yo male s/p TAVR 08/2017, hx AF on eliquis, IDDM, small bowel tumor s/p resection in 2014, CAD, VT, HTN, CKD, COPD, who presented to ER 02/04 via EMS after a fall. Yesterday he was home with his and he got up to go to the bathroom and then he fell he hit his head, had loss of consciousness, and had n/v en route to ER. On presentation he had GCS 14. Creatinine 2.23, hgb 9.3, PLT 86. Head CT showed closed head injury with subarachnoid hemorrhage on the right side, focal parenchymal hemorrhage left, scalp hematoma , opacified sinuses. Neurosurgery was consulted, recommended reversing eliquis , consult note pending. Pt had TAVR in 08/2017. On day of his discharge he fell out of his wheelchair while trying to get in the car to leave. Pt was admitted 10/09 - 10/14 this year after a fall resulting in left subarachnoid hemorrhage and small subdural hemorrhage and right hemiparesis that improved. He was being treated for urosepsis at this time. He had a loop recorder placed during that admission. 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 Currently, he cannot have another CTA d/t poor kidney function. He was diagnosed with a neuroendocrine tumor in 2014 and had small bowel resection. Per oncology on 01/16, his PET scan was negative. Dual visit with ALVA Martinez. Pt's and Son are at bedside. Pt denies pain. He he denies SOB at rest but says for he past few months he is SOB with activity and only able to ambulate short distances. He recalls nothing of the fall; unable to say if he was feeling dizzy. He reports having had nosebleed and intermittently coughing up blood clots. Function/Cognitive Trajectory: Pt has declined since TAVR procedure 08/2017. He has had 3 falls including a fall on his day of discharge after his TAVR. 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." Review of Systems Constitutional: Reports weakness Eyes: Denies blind spots Ears, Nose, Mouth, and Throat: Reports nosebleed, Denies abnormal hearing, Denies facial pain Cardiovascular: Reports irregular heart rhythm, Reports leg swelling, Reports shortness of breath with activity, Denies chest pain Respiratory: Reports coughing up blood, Reports shortness of breath with activity Gastrointestinal: Denies abdominal pain, Denies nausea, Denies vomiting Musculoskeletal: Reports abnormal walking Skin/Breast: Denies rash Neurologic: Reports frequent falls, Denies memory loss Psychiatric: Denies anxiety, Denies lack of enjoyment Hematologic/Lymphatic: Reports easy bleeding, Reports easy bruising PMFSH - History History Provided By: Patient, Family Member - Medical History Medical History: Medical History (Last Reviewed 02/12/18 @ 08:26 by Jodee Mcnally, NET ARCHITECT) Afib COPD (chronic obstructive pulmonary disease) Diabetes GERD (gastroesophageal reflux disease) Hx of Moh's micrographic surgery for skin cancer Hx of malignant neuroendocrine tumor Hypertension Stroke - Surgical History Surgical History: Surgical History (Last Reviewed 02/11/18 @ 13:57 by Erin Sevilla) H/O cataract removal with insertion of prosthetic lens H/O resection of small bowel History of cholecystectomy History of cholecystectomy History of loop recorder History of tonsillectomy Hx of colonoscopy S/p TAVR (transcatheter aortic valve replacement), bioprosthetic - Family History Family History: Family History (Last Updated 02/05/18 @ 11:05 by ALVA Hannon) Other Kidney disease Patient's father is Patient's mother is Stroke - Tobacco History Second Hand Smoke Exposure: No Tobacco Use In Past 30 Days: No Smoking Status: Former smoker Years Smoked: 17 - Alcohol History How Often Do You Have a Drink Containing Alcohol: Never - Substance Use History Substance History: No History of Abuse - Travel History Recent Travel in the [place] Within the Last 8 Weeks: No Recent Travel Out of the Country Within the Last 8 Weeks: No - Immunization History Tetanus Immunization: <5 Years Hx Influenza Vaccine This Season: No Medications and Allergies Allergies Allergy/AdvReac Type Severity Reaction Status Date / Time niacin Allergy Unknown Nausea/Vomi Verified 02/04/18 21:42 ting sitagliptin AdvReac Severe STOMACH Verified 02/04/18 21:42 PAIN Home Medications Medication Instructions Recorded Confirmed Type apixaban [Eliquis] 2.5 mg PO BID 02/04/18 02/04/18 History aspirin 81 mg PO DAILY 02/04/18 02/04/18 History atorvastatin 40 mg PO DAILY 02/04/18 02/04/18 History cholecalciferol (vitamin D3) 1,000 unit PO DAILY 02/04/18 02/04/18 History [Vitamin D3] coenzyme Q10 [Co Q-10] 100 mg PO DAILY 02/04/18 02/04/18 History ferrous gluconate 2 mg/kg PO TID 02/04/18 02/04/18 History finasteride 5 mg PO DAILY 02/04/18 02/04/18 History folic acid 1 mg PO DAILY 02/04/18 02/04/18 History furosemide 40 mg PO BID 02/04/18 02/04/18 History insulin detemir U-100 [Levemir 18 unit SUB-Q QPM 02/04/18 02/04/18 History U-100 Insulin] loratadine [Claritin] 10 mg PO DAILY 02/04/18 02/04/18 History magnesium 500 mg PO DAILY 02/04/18 02/04/18 History metolazone 2.5 mg PO Q OTHER DAY 02/04/18 02/04/18 History metoprolol succinate [Toprol XL] 12.5 mg PO BID 02/04/18 02/04/18 History polyethylene glycol 3350 [Miralax] 17 g PO DAILY PRN 02/04/18 02/04/18 History potassium chloride 20 meq PO BID 02/04/18 02/04/18 History pyridoxine (vitamin B6) [Vitamin 100 mg PO DAILY 02/04/18 02/04/18 History B-6] tamsulosin 0.4 mg PO DAILY 02/04/18 02/04/18 History Active Medications: Active Medications Al Hydroxide/Mg Hydroxide (Milk Of Magnesia Liq) 30 ml PO Q12H PRN PRN Reason: Mild Constipation Albuterol (Albuterol Neb (Prn)) 2.5 mg NEB Q2HR NEB PRN PRN Reason: SHORTNESS OF BREATH/WHEEZING Bisacodyl (Dulcolax Supp) 10 mg RECTAL DAILY PRN PRN Reason: SEVERE CONSITIPATION Chlorhexidine Gluconate (Chlorhexidine 2% Cloth) 3 pack TOPICAL DAILY@0400 RAMÍREZ Stop: 02/10/18 03:59 Last Admin: 02/05/18 04:35 Dose: 3 pack Chlorhexidine Gluconate (Chlorhexidine 2% Cloth) 3 pack TOPICAL DAILY@0400 PRN PRN Reason: Extra cloth needed Stop: 02/10/18 03:59 Dextrose (D50w Vial) 50 ml IV.PUSH UNSCH PRN PRN Reason: PER HYPOGLYCEMIA PROTOCOL Glucagon (Glucagon Inj) 1 mg OTHER UNSCH PRN PRN Reason: for Hypoglycemia Protocol Nicardipine HCl 25 mg/ Sodium (Chloride) 250 mls @ 50 mls/hr IV.CONT TITRATE PRN; Protocol PRN Reason: Per Protocol Insulin Aspart (Novolog Insulin Correctional Sugar Inj) 0 unit SQ ACHS RAMÍREZ; Protocol Lactulose (Lactulose Liq) 30 ml PO DAILY PRN PRN Reason: SEVERE CONSITIPATION Ondansetron HCl (Zofran Odt) 4 mg PO Q6H PRN PRN Reason: NAUSEA OR VOMITING Last Admin: 02/05/18 00:28 Dose: 4 mg Pantoprazole Sodium (Protonix Inj) 40 mg IV.PUSH DAILY RAMÍREZ Senna/Docusate Sodium (Ora-Colace) 1 tab PO BID [facility] Sennosides (Senokot) 17.2 mg PO Q12H PRN PRN Reason: Moderate Constipation Sodium Chloride (Ns Flush) 2 ml IV.FLUSH BID [facility] Sodium Chloride (Ns Flush) 2 ml IV.FLUSH PRN PRN PRN Reason: FLUSH AFTER USING IV ACCESS Advance Directives Advance Directives Date on File: 07/19/92 Living Will: Yes Healthcare Surrogate: Yes Health Care Surrogate Name and Number: Veda Miller [phone] Power of Parking Meter Collector: Unknown Documented care wishes: Living will with standard verbiage requesting life prolonging procedures and artificial nutrition be withheld if it would only serve to artificially prolong dying process. Today's verbally stated goals: Pt and family verbalize aggressive goals. Ethical and Legal Issues: Pt currently is capacitate to make medical decision. IN the event he becomes incapacitate, in his living will he designated HCS Veda miller Physical Exam Vital Signs: Vital Signs - 24 hr 02/04/18 21:12 02/04/18 21:44 02/04/18 21:45 Temperature 97.9 F Pulse Rate 77 75 Respiratory Rate 20 Blood Pressure 153/68 H Pulse Oximetry 99 100 02/04/18 21:49 02/04/18 22:00 02/04/18 23:00 Temperature Pulse Rate 80 88 84 Respiratory Rate 20 20 20 Blood Pressure 143/65 H 166/72 H 159/67 H Pulse Oximetry 97 98 98 02/04/18 23:35 02/05/18 04:00 02/05/18 06:00 Temperature 99.2 F Pulse Rate 86 78 76 Respiratory Rate 20 25 H Blood Pressure 158/67 H 105/55 L Pulse Oximetry 97 93 L I&O: Intake & Output 02/03/18 02/04/18 02/05/18 02/06/18 06:59 06:59 06:59 06:59 Intake Total 300 / 300 Balance 300 / 300 Weight 90.2 kg Physical Exam: CONSTITUTIONAL/GENERAL: This is an adequately nourished patient, in no apparent distress. TUBES/LINES/DRAINS: PIV SKIN: No jaundice, rashes, or lesions. + Ecchymoses on upper extremities. Skin temperature appropriate. Not diaphoretic. HEAD: Ecchymosis right face. Normocephalic. EYES: PERRL. Extraocular motions intact. No scleral icterus. No injection or drainage. Fundi not examined. Ecchymosis and swelling around right orbit. ENT: Hearing grossly normal. Nose without bleeding or purulent drainage. Ecchymosis right side tongue, right buccal mucosa. NECK: Trachea midline. Supple. CARDIOVASCULAR: irregular HR, faint murmur, no gallops, or rubs. No JVD. Peripheral pulses symmetric. RESPIRATORY/CHEST: Symmetric, unlabored respirations. Clear to auscultation. Breath sounds equal bilaterally. No wheezes, rales, or rhonchi. GASTROINTESTINAL: Abdomen soft, non-tender, protuberant. No hepato-splenomegaly , or palpable masses. No guarding. Bowel sounds present. GENITOURINARY: Without palpable bladder distension. MUSCULOSKELETAL: Extremities without clubbing, cyanosis, or edema. No mottling or clubbing. NEUROLOGICAL: Awake and alert. Motor and sensory grossly within normal limits. Follows commands. Cognitively sharp. Moves all extremities. strength 5/5 all extremities PSYCHIATRIC: No obvious anxiety/depression. no apparent hallucinations or other psychotic thought process. Diagnostic Tests Laboratory: Laboratory Results - last 72 hr 02/04/18 02/04/18 02/04/18 21:35 21:35 21:35 WBC 4.1 RBC 2.85 L Hgb 9.3 L Hct 27.6 L MCV 96.6 MCH 32.7 MCHC 33.8 RDW 15.3 Plt Count 86 L MPV 10.6 Prelim Diff (Auto) Slide review pending Neut % (Auto) 80.7 H Lymph % (Auto) 7.5 L Nolan % (Auto) 8.1 H Eos % (Auto) 3.0 Baso % (Auto) 0.7 Neut # (Auto) 3.3 Lymph # (Auto) 0.3 L Nolan # (Auto) 0.3 Eos # (Auto) 0.1 Baso # (Auto) 0.0 WBC Differential . Diff Scan Auto diff confirmed Differential Comment . Platelet Estimate Low L Platelet Morphology Normal Ovalocytes 1+ H PT 14.5 H INR 1.4 APTT 30.1 Sodium 138 Potassium 2.4 L* Chloride 95 L Carbon Dioxide 31.7 Anion Gap 11 BUN 45 H Creatinine 2.23 H Estimated GFR 28 L Random Glucose 183 H Calcium 8.7 Phosphorus Magnesium Blood Type Antibody Screen 02/04/18 02/05/18 02/05/18 21:35 03:24 03:24 WBC 4.4 RBC 2.44 L Hgb 7.9 L Hct 23.7 L MCV 97.2 MCH 32.5 MCHC 33.4 RDW 14.9 Plt Count 68 L MPV 10.5 Prelim Diff (Auto) Slide review pending Neut % (Auto) 87.5 H Lymph % (Auto) 3.0 L Nolan % (Auto) 8.4 H Eos % (Auto) 0.2 Baso % (Auto) 0.9 Neut # (Auto) 3.9 Lymph # (Auto) 0.1 L Nolan # (Auto) 0.4 Eos # (Auto) 0.0 Baso # (Auto) 0.0 WBC Differential . Diff Scan Auto diff confirmed Differential Comment . Platelet Estimate Low L Platelet Morphology Normal Ovalocytes PT INR APTT Sodium 140 Potassium 2.9 L* Chloride 98 Carbon Dioxide 31.8 Anion Gap 10 BUN 49 H Creatinine 2.18 H Estimated GFR 29 L Random Glucose 175 H Calcium 8.3 L Phosphorus 3.9 Magnesium 2.1 Blood Type A Positive Antibody Screen Negative Result Diagrams: 02/12/18 04:00 02/12/18 04:00 Imaging: ITS Impressions Cervical Spine CT 02/04/18 21:19 CONCLUSION: 1. No evidence of compression deformity or spondylolisthesis. 2. Multilevel discogenic degenerative changes and facet joint hypertrophy. Chest X-Ray 02/04/18 21:19 CONCLUSION: Cardiomegaly and central bronchopulmonary markings indistinctness similar to prior. Face CT 02/04/18 21:19 CONCLUSION: 1. No facial bone fractures seen. 2. Opacified frontal ethmoid and maxillary sinuses with evidence of resorption of nasal and ethmoid septa suggests chronic process. There is, however, an air- fluid level in the right maxillary sinus. Head CT 02/04/18 21:19 CONCLUSION: 1. Evidence of closed head injury with subarachnoid hemorrhage extending from low to high convexity on the right side. There is also a focal parenchymal hemorrhage in the highest convexity left frontal region. 2. Large right parietal scalp hematoma without evidence of skull fracture. 3. Opacified frontal, ethmoid, and maxillary sinuses. Pelvis X-Ray 02/04/18 21:19 CONCLUSION: No gross bony abnormality seen. Abdomen/Bladder Ultrasound 02/05/18 00:00 CONCLUSION: 1. Echogenic kidneys consistent with medical renal disease. No evidence for obstructive uropathy. 2. Bilateral renal cysts with a dominant 7.2 cm cyst in the superior pole of the right kidney. 3. Small amount ascites. 4. Prominent prostate. Patient/Family Conference Present at Family Conference: pt, his , and his son Family Conference Time: 25 Family Conference Location: Bedside Issues Discussed: * Palliative care role, purpose, approach * Additional medical, psychosocial, and spiritual history * Patients general health, functional status, and cognitive changes in the months leading up to the current hospitalization * Patient/family understanding of the current medical problems * Patient/family understanding of prognosis * Patients goals of care as best understood from advance directives and conversations- they verbalize aggressive goals * Current medical treatment options and benefits/burdens of those options * code status - state they wouldn't want "extraordinary means" but request pt be full code and confirm that they would want intubation & mech ventilation, CPR , shocks, and medications * Likely scenarios comparing ongoing aggressive care - specifically d/w them risk for aspiration of blood and PNA, risk for clots vs hemorrhage and stroke * Questions answered to the best of my ability * Palliative care contact information provided Family and pt verbalize aggressive goals. Pt states that he enjoyed good quality of life prior to admission. Assessment and Plan Pertinent Non-Medical Issues: Psychosocial: Pt is with 5 children. He is originally from [facility] and has been in [place] for nearly 30 years. 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 Spiritual: Jew. Family's sales effectiveness manager currently attending to spiritual needs. Legal: Pt currently is capacitate to make medical decision. IN the event he becomes incapacitate, in his living will he designated [facility] Veda miller Ethical issues impacting care: none identified Important Contacts: Veda Miller [phone] Prognosis: This is an 87 yo male with hx falls, AF on eliquis, IDDM, CAD, s/p TAVR who presented after a fall and was found to have subarachnoid hemorrhage on the right side, focal parenchymal hemorrhage on the left side. He is stable currently but is at significant risk for developing pneumonia from aspiration of blood. He is also at risk for further falls, bleeds, and for clots and stroke. He requires anticoagulation for AF & mechanical valve but his tendency for falls is a complicating factor and presents a dilemma for future management. His underlying comorbitities further reduce his likelihood of making a full recovery. He has been declining since his TAVR and it is likely that he will continue to decline. If goals are aggressive, he will likely need rehab and therapy. Code Status: Full Code Plan: - LEGAL DECISON MAKER - Pt currently is capacitate to make medical decision. IN the event he becomes incapacitate, in his living will he designated [facility] - CODE STATUS- full code - GOALS - Family and pt verbalize aggressive goals. Pt states that he enjoyed good quality of life prior to admission. - SYMPTOMS - * pain - risk for pain d/t injuries from repeated falls, has significant bruising and swelling right side of face, numerous bruises on BUE. Pt denies pain on my evaluation. IF he develops pain would use caution with opiates or other sedating medications b/c of his risk for falls. * dyspnea/cough - Pt reports SOB one exertion since his TAVR. He had nosebleed after his fall and swallowed blood, reports having coughed up blood clots. He is at risk for PNA. Denies SOB at rest on my evaluation. May benefit from PT/ OT, incentive spirometry * debility - Pt with decline since TAVR, has been having activity intolerance, no longer able to assist with household duties and chores. At risk for falls. NET ARCHITECT following, [facility] soft diet and honey thick liquids. May benefit from PT/OT , walker. - Palliative care will continue to follow during hospital course as condition evolves, to assist patient/decision-maker with understanding of medical conditions, weighing benefits/burdens of treatment options, for clarification of goals of treatment. Additionally will assist with any symptoms of palliative concern Appreciation Thank you for the opportunity to participate in the care of Kim Miller. Attestation Collaborating MD Comments: Chart reviewed. Case discussed with palliative care KEY CARRIER. Above KEY CARRIER note reviewed and I concur. . Attestation: To help prompt me to consider important information that might be impacting today's encounter and assessment, information from prior notes written by myself or my colleagues may have been "brought forward" into today's note. My signature on this note, however, is an attestation that I personally performed the exam, history, and/or decision-making noted today, and, unless otherwise indicated, the interactions with patient, family, and staff as well as the review of records all occurred today. I also attest that the listed assessment and stated plan reflect my best clinical judgment today based on the combination of historical information, prior notes, and today's exam/ interactions. When time spent is documented, it refers only to time spent today by the signer, or if indicated, combined time spent today by collaborating physician/nurse practitioner.
[2018-02-05] MEDS: Senna/Docusate Sodium 8.6/50 MG Tablet PO SCH ×2 (11:26→21:57)
[2018-02-05] MEDS: Pantoprazole Inj 40 MG Vial IV.PUSH SCH (11:26)
--- NOTE | 2018-02-05 11:48 | P.PNCC ---
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 Reportedly he was watching TV and stood up to walk to the bathroom at about 20:10 and fell on a tile floor hitting the right side of his head. His reports brief loss of consciousness. No noted seizure activity. [facility] was called. Vomited x1 during transport. GCS was 14 on arrival. In the ED workup included CT brain which demonstrated R temporoparietal subarachnoid hemorrhage and focal L frontal intraparenchymal hemorrhage. The emergency department physician discussed with Dr. Montenegro who requested Eliquis reversal. Patient's states that he last took Eliquis at 18:00 on 02/04. Of note, patient had a fall and presented in September 2017 with R hemiparesis. He had been on warfarin and initial CT negative. 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 He was felt to have M2 segment stroke. He was not administered TPA due to multiple contraindications. On followup imaging, he was found to have L subarachnoid hemorrhage, small r subdural without shift. He was followed by neurology and neurosurgery; no surgical intervention. states he was discharged home with home therapy and was not noted to have residual weakness. SUBJ 02/05: Lying in bed, patient complains about epistaxis since he woke up an hour ago. His platelet count is 68. I have ordered 1 packed unit of platelets stat, also 1 unit of FFP stat for INR of 1.4. MRI of the brain had been ordered per Dr. Montenegro request. Neurosurgery consult is pending Objective Vital Signs / I&O: Vital Signs 02/04/18 21:12 02/04/18 21:44 02/04/18 21:45 Temperature 97.9 F Pulse Rate 77 75 Respiratory Rate 20 Blood Pressure 153/68 H Pulse Oximetry 99 100 02/04/18 21:49 02/04/18 22:00 02/04/18 23:00 Temperature Pulse Rate 80 88 84 Respiratory Rate 20 20 20 Blood Pressure 143/65 H 166/72 H 159/67 H Pulse Oximetry 97 98 98 02/04/18 23:35 02/05/18 04:00 02/05/18 06:00 Temperature 99.2 F Pulse Rate 86 78 76 Respiratory Rate 20 25 H Blood Pressure 158/67 H 105/55 L Pulse Oximetry 97 93 L Intake & Output 02/04/18 02/05/18 02/05/18 18:59 06:59 18:59 Intake Total 300 / 300 Balance 300 / 300 Weight 90.2 kg Intake: IV 300 / 300 KCl 20 mEq Premix Inj 20 meq In 300 / 300 100 ml @ 50 mls/hr IV.SIG Q2H RAMÍREZ Rx#:[id number] Result Diagrams: 02/05/18 03:24 02/05/18 03:24 Objective Remarks: GENERAL: Elderly male who is lying in bed no acute distress SKIN: Warm and dry. Gauze dressing in place over right forearm. HEAD: Normocephalic. Large scalp hematoma overlying R temporal region EYES: R periorbital hematoma, Pupils equal and round, 3 mm and reactive. Subconjunctival hemorrhage right lateral bulbar conjunctiva. No scleral icterus. No drainage. ENT: +ve epistaxis from bilateral nares, no septal hematoma. Mucous membranes pink and moist. NECK: Trachea midline. No JVD. No midline tenderness, stepoff or deformity. CARDIOVASCULAR: irregular. No murmurs rubs or gallops. RESPIRATORY: No accessory muscle use. Clear to auscultation. Breath sounds equal bilaterally. On RA. GASTROINTESTINAL: Abdomen soft, non-tender, nondistended. Healed vertical scar upper abdomen. MUSCULOSKELETAL: Extremities without clubbing, cyanosis. Edema 2+ bilateral lower extremities. NEUROLOGICAL: Awake and alert. Oriented to person, place, not to year (2016). No pronator drift, no tremor. 5/5 biceps/triceps bilaterally, education department chair strength is normal bilaterally. No lower extremity strength appears normal by limited exam Assessment and Plan - Problem List (1) CKD (chronic kidney disease) stage 4, GFR 15-29 ml/min Code(s): N18.4 - Chronic kidney disease, stage 4 (severe) Status: Acute (2) Fall Code(s): W19.XXXA - Unspecified fall, initial encounter Status: Acute (3) Scalp hematoma Code(s): S00.03XA - Contusion of scalp, initial encounter Status: Acute (4) H/O stroke within last year Code(s): Z86.73 - Personal history of transient ischemic attack (TIA), and cerebral infarction without residual deficits Status: Acute (5) TBI (traumatic brain injury) Code(s): S06.9X9A - Unspecified intracranial injury with loss of consciousness of unspecified duration, initial encounter Status: Acute (6) BPH (benign prostatic hyperplasia) Code(s): N40.0 - Benign prostatic hyperplasia without lower urinary tract symptoms Status: Chronic (7) Subconjunctival hemorrhage of right eye Code(s): H11.31 - Conjunctival hemorrhage, right eye Status: Acute (8) Thrombocytopenia Code(s): D69.6 - Thrombocytopenia, unspecified Status: Chronic (9) Iron deficiency anemia Code(s): D50.9 - Iron deficiency anemia, unspecified Status: Chronic (10) S/P TAVR (transcatheter aortic valve replacement) Code(s): Z95.2 - Presence of prosthetic heart valve Status: Acute (11) Subarachnoid bleed Code(s): I60.9 - Nontraumatic subarachnoid hemorrhage, unspecified Status: Acute (12) Chronic anticoagulation Code(s): Z79.01 - FCI (current) use of 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 Status: Chronic - Assessment and Plan Plan: NEURO: TBI with loss of consciousness R temporoparietal subarachnoid hemorrhage in left frontal intraparenchymal hemorrhage. Right scalp hematoma Fall CT maxillofacial is negative for acute fracture. Has some acute epistaxis, holding pressure, transfusions 1 packed unit of platelets, 1 unit FFP MRI of the brain requested per Dr. Montenegro CT C-spinenegative for fracture CT brain 02/04 with traumatic SAH. Not currently candidate for CTA due to renal dysfunction. Prior CTA 10/09/17 negative for vascular malformation or aneurysm ( L carotid occlusion noted) Followup CT in am. Cardene if needed to maintain SBP <150. Keppra not currently indicated based on mild TBI by GCS criteria. Hold Eliquis, s/p Kcentra as per below. Neurosurgery consulted, Dr. Montenegro RESP: Prior history of tobacco abuse IS q 1 hour awake CV: HTN Atrial fibrillation on chronic anti-coagulation with Eliquis History of aortic stenosis now status post TAVR 08/2017. Cardene as needed to maintain systolic blood pressure less than 150 Hold Eliquis and ASA due to ICH. Hold statin, metoprolol, lasix and metolazone for now. Consider resuming po meds if he passes speech swallow eval. GI: GERD Protonix for stress ulcer prophylaxis and history of GERD. Speech therapy to evaluate swallow. Hold off on NGT insertion until epistaxis improves. FEN/RENAL: BPH s/p TUMT CKD stage IIIb-IV Acute hypokalemia states he has been referred to Dr. Kamila Jha but hasn't followed up yet. Renal u/s, place lópez if e/o obstruction. Hold tamulosin, finasteride until able to take po. Has been on Lasix and metolazone for edema. Holding IVF considering significant peripheral edema, mild pulm edema. Likely resume diuretics soon, though correcting hypokalemia is the priority. KCL 80 MEQ IV now and recheck. Add po replacement if passes swallow eval. ID: Monitor for signs and symptoms of infection HEME: History of neuroendocrine tumor status post small bowel resection in 2015 Chronic iron deficiency anemia Chronic thrombocytopenia He has been followed by Dr. Adan Cee as an outpatient for above, follow PET scans have shown no residual disease. Resume iron supplementation, B6, folic acid if passes swallow eval. ENDO: Diabetes mellitus Hold detemir. Monitor glucose AC/at bedtime and initiate medium dose insulin sliding scale as indicated PROPH: SCDs for DVT prophylaxis. He has chronically been on Eliquis which is on hold but pharmacologic DVT prophylaxis is contraindicated due to subarachnoid hemorrhage. Protonix for stress ulcer prophylaxis ACCESS: Peripheral IV providing adequate access at this time Patient is critically ill with TBI including traumatic subarachnoid hemorrhage in need of urgent reversal anticoagulation to decrease chance of expansion of hemorrhage. Discussed with Dr. Mcneal and STRATEGIC PROCUREMENT MANAGER. updated at bedside Patient and his indicate that he is full code Patient is of advanced age and has undergone successful TAVR, however his subsequent course has been complicated by readmission for sepsis, ischemic stroke with fall and subsequent SAH and SDH, now additional fall and SAH. He has known left carotid occlusion and A fib which place him at risk for embolic stroke, though obviously with hemorrhage while on anticoagulation. He is at risk for further complication, will ask palliative care to follow and assist with ongoing address of goals of care/code status. Critical care time 35 minutes exclusive of separately billable procedures
[2018-02-05] MEDS ORDERED: Insulin NovoLIN Regular Correctional Sugar Inj SQ SCH (12:00)
[2018-02-05] MEDS: Insulin NovoLOG Aspart Correctional Sugar Inj SQ SCH ×3 (12:51→21:51)
[2018-02-05] MEDS ORDERED: Magnesium Sulfate Inj 4 GM in Sodium Chlor 0.9% Inj 92 ML IV.SIG PRN (14:34)
[2018-02-05] MEDS ORDERED: Potassium Chlor 40 mEq Premix 40 MEQ/100 ML PIGGYBACK IV.SIG PRN ×2 (14:34)
[2018-02-05] MEDS ORDERED: Magnesium Oxide 400 MG Tablet PO PRN (14:34)
[2018-02-05] MEDS ORDERED: Potassium Chlor 20 mEq Premix 20 MEQ/100 ML PIGGYBACK IV.SIG PRN ×2 (14:34)
[2018-02-05] MEDS ORDERED: Potassium Phosphate Inj 30 MMOL in Sodium Chlor 0.9% Inj 250 ML IV.SIG PRN (14:34)
[2018-02-05] MEDS ORDERED: Potassium Chloride 25 MEQ Effervescent Tablet PO PRN (14:34)
[2018-02-05] MEDS ORDERED: Sodium Phosphate Inj 30 MMOL in Sodium Chlor 0.9% Inj 250 ML IV.SIG PRN (14:34)
[2018-02-05] MEDS ORDERED: Potassium Phosphate 500 MG Soluble Tablet PO PRN ×2 (14:34)
[2018-02-05] MEDS ORDERED: Magnesium Sulfate Inj 2 GM in Sodium Chlor 0.9% Inj 96 ML IV.SIG PRN (14:34)
--- NOTE | 2018-02-05 16:52 | MR ---
EXAM DATE: 02/05/2018 4:35 PM EDT AGE/SEX: 87 years / Male INDICATIONS: Hemorrhage. Patient fell one day ago. CLINICAL DATA: This is the patient's initial encounter. Patient reports that signs and symptoms have been present for 1 day and indicates a pain score of 4/10. MEDICAL/SURGICAL HISTORY: Chronic obstructive pulmonary disease. Renal failure, chronic. Coron samia artery disease and atrial fibrillation. Coronary artery stent. Loop recorder and aortic valve re pair. COMPARISON: [facility] [place] BRAIN W/O CONTRAST, 10/10/2017. . TECHNIQUE: Multiplanar, multisequence examination of the brain was performed without contrast. FINDINGS: FLAIR imaging demonstrates hyperintensity within the right temporal, occipital and frontal of arachno id space outlining the sulci. Smaller collections of subarachnoid hyperintensity is seen in the left lateral and temporal lobes. A small hyperintense fluid collection is identified along the right temporal and occipital lobes ryan acteristic of a small subdural hematoma. Susceptibility weighted imaging reveals significant parenchymal hemorrhages in the right temporal, ri ght occipital, right parietal and both frontal lobes. Central hemorrhage is identified in the body of the corpus callosum. Minimal blood is identified in both lateral ventricles. A cephalohematoma measuring 3.4 x 1.4 cm in size is seen along the right frontal subcutaneous tissue. There is no evidence of restricted diffusion characteristic of an acute infarct. There is no signific ant mass effect or shift of the midline structures. The lateral ventricles are moderately prominent. CONCLUSION: 1. Traumatic brain injury which includes significant subarachnoid hemorrhage, parenchymal hemorrhage and small subdural hematoma involving the right temporal and occipital lobes. 2. Additional hemorrhage or identified in both frontal lobes and left temporal lobe. 3. Right frontal cephalohematoma 4. No evidence of significant mass effect, intra-axial edema or acute infarct. Electronically signed by: Washington Parra MD 02/05/2018 4:51 PM EDT
[2018-02-05 18:05] LABS: Hematocrit 21.9 % (39.0-51.0); Hemoglobin 7.3 gm/dL (13.0-17.0); Mean Corpuscular HGB Conc 33.2 % (32.0-36.0); Mean Corpuscular Hemoglobin 32.7 pg (27.0-34.0); Mean Corpuscular Volume 98.7 fL (80.0-100.0); Mean Platelet Volume 9.6 fL (7.0-11.0); Platelet Count 90 th/mm3 (150-450); Red Blood Count 2.22 mil/mm3 (4.50-5.90); Red Cell Distribution Width 15.6 % (11.6-17.2); White Blood Count 5.1 th/mm3 (4.0-11.0)
[2018-02-05 18:20] LABS: INR 1.3 Ratio; Prothrombin Time 13.2 sec (9.8-11.6)
--- NOTE | 2018-02-05 18:41 | P.CONNS ---
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 Reportedly he walk to the bathroom and fell on a tile floor hitting the right side of his head. His reports brief loss of consciousness. No seizure activity. No tongue bitting. No incontinence of stool or urine. [facility] was called. He vomited x1 during transport. GCS was 14 on arrival. In the ED workup included CT brain which demonstrated Right temporoparietal subarachnoid hemorrhage and focal L frontal intraparenchymal hemorrhage. He last took Eliquis at 18:00 on 02/04. Mr Miller had a fall and presented in September 2017 with R hemiparesis. He had been on warfarin and initial CT negative at that time. 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 He was felt to have M2 segment stroke. He was not administered TPA due to multiple contraindications. On followup imaging, he was found to have L subarachnoid hemorrhage, small r subdural without shift. He was followed by neurology and neurosurgery; no surgical intervention. AT that time he was discharged home with home therapy and was not noted to have residual weakness. Neurosurgery consultation was requested Review of Systems All other systems reviewed negative except as stated in HPI PMFSH - History History Provided By: Patient, Family Member - Medical History Medical History: Medical History (Last Reviewed 02/05/18 @ 08:16 by Sumit Edwards) Afib COPD (chronic obstructive pulmonary disease) Diabetes GERD (gastroesophageal reflux disease) Hx of Moh's micrographic surgery for skin cancer Hx of malignant neuroendocrine tumor Hypertension Stroke - Surgical History Surgical History: Surgical History (Last Reviewed 02/05/18 @ 08:16 by Sumit Edwards) H/O cataract removal with insertion of prosthetic lens H/O resection of small bowel History of cholecystectomy History of cholecystectomy History of loop recorder History of tonsillectomy Hx of colonoscopy S/p TAVR (transcatheter aortic valve replacement), bioprosthetic - Family History Family History: Family History (Last Updated 02/05/18 @ 11:05 by ALVA Hannon) Other Kidney disease Patient's father is Patient's mother is Stroke - Tobacco History Second Hand Smoke Exposure: No Tobacco Use In Past 30 Days: No Smoking Status: Former smoker Years Smoked: 17 - Alcohol History How Often Do You Have a Drink Containing Alcohol: Never - Substance Use History Substance History: No History of Abuse - Travel History Recent Travel in the [place] Within the Last 8 Weeks: No Recent Travel Out of the Country Within the Last 8 Weeks: No - Immunization History Tetanus Immunization: <5 Years Hx Influenza Vaccine This Season: No Medications and Allergies Active Medications: Active Medications Al Hydroxide/Mg Hydroxide (Milk Of Magnesia Liq) 30 ml PO Q12H PRN PRN Reason: Mild Constipation Albuterol (Albuterol Neb (Prn)) 2.5 mg NEB Q2HR NEB PRN PRN Reason: SHORTNESS OF BREATH/WHEEZING Bisacodyl (Dulcolax Supp) 10 mg RECTAL DAILY PRN PRN Reason: SEVERE CONSITIPATION Chlorhexidine Gluconate (Chlorhexidine 2% Cloth) 3 pack TOPICAL DAILY@0400 RAMÍREZ Stop: 02/10/18 03:59 Last Admin: 02/05/18 04:35 Dose: 3 pack Chlorhexidine Gluconate (Chlorhexidine 2% Cloth) 3 pack TOPICAL DAILY@0400 PRN PRN Reason: Extra cloth needed Stop: 02/10/18 03:59 Dextrose (D50w Vial) 50 ml IV.PUSH UNSCH PRN PRN Reason: PER HYPOGLYCEMIA PROTOCOL Glucagon (Glucagon Inj) 1 mg OTHER UNSCH PRN PRN Reason: for Hypoglycemia Protocol Nicardipine HCl 25 mg/ Sodium (Chloride) 250 mls @ 50 mls/hr IV.CONT TITRATE PRN; Protocol PRN Reason: Per Protocol Insulin Aspart (Novolog Insulin Correctional Sugar Inj) 0 unit SQ ACHS RAMÍREZ; Protocol Last Admin: 02/05/18 17:03 Dose: Not Given Lactulose (Lactulose Liq) 30 ml PO DAILY PRN PRN Reason: SEVERE CONSITIPATION Ondansetron HCl (Zofran Odt) 4 mg PO Q6H PRN PRN Reason: NAUSEA OR VOMITING Last Admin: 02/05/18 00:28 Dose: 4 mg Pantoprazole Sodium (Protonix Inj) 40 mg IV.PUSH DAILY [facility] Last Admin: 02/05/18 11:26 Dose: 40 mg Senna/Docusate Sodium (Ora-Colace) 1 tab PO BID [facility] Last Admin: 02/05/18 11:26 Dose: 1 tab Sennosides (Senokot) 17.2 mg PO Q12H PRN PRN Reason: Moderate Constipation Sodium Chloride (Ns Flush) 2 ml IV.FLUSH BID [facility] Last Admin: 02/05/18 11:25 Dose: 2 ml Sodium Chloride (Ns Flush) 2 ml IV.FLUSH PRN PRN PRN Reason: FLUSH AFTER USING IV ACCESS Allergies Allergy/AdvReac Type Severity Reaction Status Date / Time niacin Allergy Unknown Nausea/Vomi Verified 02/04/18 21:42 ting sitagliptin AdvReac Severe STOMACH Verified 02/04/18 21:42 PAIN Home Medications Medication Instructions Recorded Confirmed Type apixaban [Eliquis] 2.5 mg PO BID 02/04/18 02/04/18 History aspirin 81 mg PO DAILY 02/04/18 02/04/18 History atorvastatin 40 mg PO DAILY 02/04/18 02/04/18 History cholecalciferol (vitamin D3) 1,000 unit PO DAILY 02/04/18 02/04/18 History [Vitamin D3] coenzyme Q10 [Co Q-10] 100 mg PO DAILY 02/04/18 02/04/18 History ferrous gluconate 2 mg/kg PO TID 02/04/18 02/04/18 History finasteride 5 mg PO DAILY 02/04/18 02/04/18 History folic acid 1 mg PO DAILY 02/04/18 02/04/18 History furosemide 40 mg PO BID 02/04/18 02/04/18 History insulin detemir U-100 [Levemir 18 unit SUB-Q QPM 02/04/18 02/04/18 History U-100 Insulin] loratadine [Claritin] 10 mg PO DAILY 02/04/18 02/04/18 History magnesium 500 mg PO DAILY 02/04/18 02/04/18 History metolazone 2.5 mg PO Q OTHER DAY 02/04/18 02/04/18 History metoprolol succinate [Toprol XL] 12.5 mg PO BID 02/04/18 02/04/18 History polyethylene glycol 3350 [Miralax] 17 g PO DAILY PRN 02/04/18 02/04/18 History potassium chloride 20 meq PO BID 02/04/18 02/04/18 History pyridoxine (vitamin B6) [Vitamin 100 mg PO DAILY 02/04/18 02/04/18 History B-6] tamsulosin 0.4 mg PO DAILY 02/04/18 02/04/18 History Exam Vital signs: Vital Signs 02/04/18 21:12 02/04/18 21:44 02/04/18 21:45 Temperature 97.9 F Pulse Rate 77 75 Respiratory Rate 20 Blood Pressure 153/68 H Pulse Oximetry 99 100 02/04/18 21:49 02/04/18 22:00 02/04/18 23:00 Temperature Pulse Rate 80 88 84 Respiratory Rate 20 20 20 Blood Pressure 143/65 H 166/72 H 159/67 H Pulse Oximetry 97 98 98 02/04/18 23:35 02/05/18 04:00 02/05/18 06:00 Temperature 99.2 F Pulse Rate 86 78 76 Respiratory Rate 20 25 H Blood Pressure 158/67 H 105/55 L Pulse Oximetry 97 93 L 02/05/18 08:00 02/05/18 09:18 02/05/18 10:00 Temperature 98.7 F Pulse Rate 66 72 Respiratory Rate 22 Blood Pressure 98/69 L Pulse Oximetry 96 93 L 02/05/18 12:00 02/05/18 13:05 02/05/18 13:56 Temperature 98.4 F 98.4 F 98.8 F Pulse Rate 69 72 71 Respiratory Rate 21 22 19 Blood Pressure 117/56 L 117/56 L 118/68 Pulse Oximetry 97 97 97 02/05/18 14:00 02/05/18 16:00 Temperature 98.3 F Pulse Rate 66 71 Respiratory Rate 18 Blood Pressure 136/63 Pulse Oximetry 97 Intake & Output 02/04/18 02/05/18 02/05/18 18:59 06:59 18:59 Intake Total 300 / 300 100 / 100 Balance 300 / 300 100 / 100 Weight 90.2 kg Intake: IV 300 / 300 100 / 100 KCl 20 mEq Premix Inj 20 meq In 300 / 300 100 / 100 100 ml @ 50 mls/hr IV.SIG Q2H RAMÍREZ Rx#:[id number] Intake (Blood Product) Amt 0 / 0 Plasma Thawed 5 Day Cp2d Unit 0 / 0 [id number] Plt Pheresis B Leukoreduced 0 / 0 Unit [id number] Narrative: GENERAL: Elderly male who is laying in ED stretcher. He is awake and conversant. SKIN: Warm and dry. Gauze dressing in place over right forearm. HEAD: Normocephalic. Large scalp hematoma overlying R temporal region EYES: R periorbital hematoma, Pupils equal and round, 3 mm and reactive. Subconjunctival hemorrhage right lateral bulbar conjunctiva. No scleral icterus. No drainage. ENT: Trickle of epistaxis from bilateral nares, no septal hematoma. . Mucous membranes pink and moist. NECK: Trachea midline. No JVD. No midline tenderness, stepoff or deformity. NEUROLOGICAL: The patient is alert, awake and oriented to self Cranial nerve examination demonstrates the pupils to be equal, round, and reactive to light. Extra-ocular movements are intact with normal convergence. Facial motornormal and symmetrical.face sensation,hearing, visual acuity, taste, and olfaction can not be assessed due to the patient's neurological condition.Sternocleidomastoid and deltoid musclesasymmetrical. Neck is soft and supple. Muscle testing revealsnormal bulk and tonewith gross normalstrength in both upper and lowerextremities Sensory examination isgrossly normal Deep tendon reflexes are1+ and symmetrical in upper andlower extremities. Bilateral plantar flexion response. Hoffmanns sign is negative. There is no clonus or other abnormal reflexes noted. Cerebellar examinationcan not be assessed due the patient's neurological condition Lungs: clear Heart: Irregular rhythm and rate Skin: warm and dry Results - Laboratory Findings CBC and BMP: 02/05/18 17:37 02/05/18 12:40 Abnormal lab findings: Abnormal Labs 02/04/18 02/04/18 02/04/18 21:35 21:35 21:35 RBC 2.85 L Hgb 9.3 L Hct 27.6 L Plt Count 86 L Neut % (Auto) 80.7 H Lymph % (Auto) 7.5 L Phillips % (Auto) 8.1 H Lymph # (Auto) 0.3 L Platelet Estimate Low L Ovalocytes 1+ H PT 14.5 H Potassium 2.4 L* Chloride 95 L BUN 45 H Creatinine 2.23 H Estimated GFR 28 L Random Glucose 183 H Calcium 02/05/18 02/05/18 02/05/18 03:24 03:24 12:40 RBC 2.44 L Hgb 7.9 L Hct 23.7 L Plt Count 68 L Neut % (Auto) 87.5 H Lymph % (Auto) 3.0 L Phillips % (Auto) 8.4 H Lymph # (Auto) 0.1 L Platelet Estimate Low L Ovalocytes PT Potassium 2.9 L* 3.0 L Chloride BUN 49 H Creatinine 2.18 H Estimated GFR 29 L Random Glucose 175 H Calcium 8.3 L 02/05/18 02/05/18 17:37 17:37 RBC 2.22 L Hgb 7.3 L Hct 21.9 L Plt Count 90 L D Neut % (Auto) Lymph % (Auto) Phillips % (Auto) Lymph # (Auto) Platelet Estimate Ovalocytes PT 13.2 H Potassium Chloride BUN Creatinine Estimated GFR Random Glucose Calcium Assessment and Plan - Plan I reviewed his radiological studies including Face CT 02/04/18 21:19 CONCLUSION: 1. No facial bone fractures seen. 2. Opacified frontal ethmoid and maxillary sinuses with evidence of resorption of nasal and ethmoid septa suggests chronic process. There is, however, an air- fluid level in the right maxillary sinus. Head CT 02/04/18 21:19 CONCLUSION: 1. Evidence of closed head injury with subarachnoid hemorrhage extending from low to high convexity on the right side. There is also a focal parenchymal hemorrhage in the highest convexity left frontal region. 2. Large right parietal scalp hematoma without evidence of skull fracture. 3. Opacified frontal, ethmoid, and maxillary sinuses. Assessment and Plan - Problem List (1) CKD (chronic kidney disease) stage 4, GFR 15-29 ml/min Code(s): N18.4 - Chronic kidney disease, stage 4 (severe) Status: Acute (2) Fall Code(s): W19.XXXA - Unspecified fall, initial encounter Status: Acute (3) Scalp hematoma Code(s): S00.03XA - Contusion of scalp, initial encounter Status: Acute (4) H/O stroke within last year Code(s): Z86.73 - Personal history of transient ischemic attack (TIA), and cerebral infarction without residual deficits Status: Acute (5) TBI (traumatic brain injury) Code(s): S06.9X9A - Unspecified intracranial injury with loss of consciousness of unspecified duration, initial encounter Status: Acute (6) BPH (benign prostatic hyperplasia) Code(s): N40.0 - Benign prostatic hyperplasia without lower urinary tract symptoms Status: Chronic (7) Subconjunctival hemorrhage of right eye Code(s): H11.31 - Conjunctival hemorrhage, right eye Status: Acute (8) H/O malignant neuroendocrine tumor Code(s): Z85.9 - Personal history of malignant neoplasm, unspecified Status: Resolved (9) Thrombocytopenia Code(s): D69.6 - Thrombocytopenia, unspecified Status: Chronic (10) Iron deficiency anemia Code(s): D50.9 - Iron deficiency anemia, unspecified Status: Chronic (11) S/P TAVR (transcatheter aortic valve replacement) Code(s): Z95.2 - Presence of prosthetic heart valve Status: Acute (12) Subarachnoid bleed Code(s): I60.9 - Nontraumatic subarachnoid hemorrhage, unspecified Status: Acute (13) Chronic anticoagulation Code(s): 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 Right scalp hematoma Fall CT maxillofacial is negative for acute fracture. Traumatic SAH. Recommend MRI brain Prior CTA 10/09/17 negative for vascular malformation or aneurysm (L carotid occlusion noted) Hypertension Cardene if needed to maintain SBP <150. Hold Eliquis, Give Kcentra as per below. Atrial fibrillation on chronic anti-coagulation with Eliquis History of aortic stenosis now status post TAVR 08/2017. Cardene as needed to maintain systolic blood pressure less than 150 Hold Eliquis and ASA due to ICH. Hold statin, metoprolol, lasix and metolazone for now. Consider resuming po meds if he passes speech swallow eval. GERD Protonix for stress ulcer prophylaxis and history of GERD. Acute hypokalemia Renal u/s, place lópez if e/o obstruction. Hold tamulosin, finasteride until able to take po. Has been on lasix and metolazone for edema. KCL 80 MEQ IV now and recheck. 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 Adan Cee as an outpatient for above, follow PET scans have shown no residual disease. REsume iron supplementation, B6, folic acid if passes swallow eval. Diabetes mellitus Hold detemir Monitor glucose AC/at bedtime and initiate medium dose insulin sliding scale as indicated Pulmonary: aggressive pulmonary toilette, nasotracheal suction, and breathing treatments with nebulizers. Daily PT and OT Renal: Continue to monitor closely urine output, BUN and creatinine ID continue to monitor for signs of infection Edin hose and SCD's for DVT prophylaxis Further recommendations will be provided depending on the patient's clinical evaluation and follow up studies. Caprini VTE Risk Assessment Caprini VTE Risk Assessment: Moderate/High Risk (score >= 2) VTE Pharmacological Exception Reason: Hemorrhage Caprini Risk Assessment Model: Point Value = 1 Point Value = 2 Point Value = 3 Point Value = 5 Age 41-60 Minor surgery BMI > 25 kg/m2 Swollen legs Varicose veins or History of unexplained or recurrent spontaneous Oral contraceptives or hormone replacement Sepsis (< 1 month) Serious lung disease, including pneumonia (< 1 month) Abnormal pulmonary function Acute myocardial infarction Congestive heart failure (< 1 month) History of inflammatory bowel disease Medical patient at bed rest Age 61-74 Arthroscopic surgery Major open surgery (> 45 min) Laparoscopic surgery (> 45 min) Malignancy Confined to bed (> 72 hours) Immobilizing plaster cast Central venous access Age >= 75 History of VTE Family history of VTE Factor V Leiden Prothrombin [id number] Lupus anticoagulant Anticardiolipin antibodies Elevated serum homocysteine Heparin-induced thrombocytopenia Other congenital or acquired thrombophilia Stroke (< 1 month) Elective arthroplasty Hip, pelvis, or leg fracture Acute spinal cord injury (< 1 month) Prophylaxis Regimen: Total Risk Factor Score Risk Level Prophylaxis Regimen 0-1 Low Early ambulation 2 Moderate Order ONE of the following: *Sequential Compression Device (SCD) *Heparin 5000 units SQ BID 3-4 Higher Order ONE of the following medications: *Heparin 5000 units SQ TID *Enoxaparin/Lovenox 40 mg SQ daily (WT < 150 kg, CrCl > 30 mL/min) *Enoxaparin/Lovenox 30 mg SQ daily (WT < 150 kg, CrCl > 10-29 mL/min) *Enoxaparin/Lovenox 30 mg SQ BID (WT < 150 kg, CrCl > 30 mL/min) AND/OR *Sequential Compression Device (SCD) 5 or more Highest Order ONE of the following medications: *Heparin 5000 units SQ TID (Preferred with Epidurals) *Enoxaparin/Lovenox 40 mg SQ daily (WT < 150 kg, CrCl > 30 mL/min) *Enoxaparin/Lovenox 30 mg SQ daily (WT < 150 kg, CrCl > 10-29 mL/min) *Enoxaparin/Lovenox 30 mg SQ BID (WT < 150 kg, CrCl > 30 mL/min) AND *Sequential Compression Device (SCD) Patient is critically ill with TBI including traumatic subarachnoid hemorrhage in need of urgent reversal anticoagulation to decrease chance of expansion of hemorrage. Discussed with ED physician and with Dr Jeronimo.
--- NOTE | 2018-02-05 19:08 | ECG ---
Date Performed: 02/04/2018 Time Performed: 21:24:13 PTAGE: 87 years EKG: ATRIAL FIBRILLATION NONSPECIFIC ST & T-WAVE ABNORMALITY ABNORMAL RHYTHM ECG WARNING: DATA Q UALITY MAY AFFECT INTERPRETATION PREVIOUS TRACING 10/09/17 @ 12.13.01 Since the previous tracing, no significant change no jann DOCTOR: Greg Calzada Interpretating Date/Time 02/05/2018 19:07:16
--- NOTE | 2018-02-06 01:14 | P.PCN ---
Date of procedure: 02/05/18 Pre-op diagnosis: Acute anterior epistaxis Post-op diagnosis: same Procedure: Anterior nasal packing Patient has persistent acute anterior epistaxis after receiving platelet transfusion and oxymetazoline. He requests nasal packing. Discussed risks and benefits with him. Applied saline to 5.5 cm Rhino Rocket anterior nasal packing and advanced into R naris. Syringe used to inflate, stopped after 8 mL because beyond that patient had discomfort. Initially some mucous and clots suctioned from posterior oropharynx after nasal packing was placed, however this resolved and then there was no noted bleeding either anteriorly or posteriorly. Patient reported significant improvement. Packaging Specialist balloon secured to right cheek with tape. Nurse updated regarding monitoring for migration of Rhino Rocket, monitoring airway protection, monitoring for recurrence of bleeding.
[2018-02-06 06:17] LABS: Hematocrit 21.9 % (39.0-51.0); Hemoglobin 7.3 gm/dL (13.0-17.0); Mean Corpuscular HGB Conc 33.1 % (32.0-36.0); Mean Corpuscular Hemoglobin 32.8 pg (27.0-34.0); Mean Corpuscular Volume 99.3 fL (80.0-100.0); Mean Platelet Volume 9.5 fL (7.0-11.0); Platelet Count 93 th/mm3 (150-450); Red Blood Count 2.21 mil/mm3 (4.50-5.90); Red Cell Distribution Width 15.5 % (11.6-17.2); White Blood Count 4.3 th/mm3 (4.0-11.0)
[2018-02-06] MEDS: Chlorhexidine Gluconate 2% 1 Pack (2 Cloths) TOPICAL SCH (06:24)
[2018-02-06 06:38] LABS: Albumin 3.1 g/dL (3.4-5.0); Anion Gap 12 meq/L (5-15); Aspartate Aminotransferase 58 U/L (15-37); Blood Urea Nitrogen 53 mg/dL (7-18); Calcium 8.8 mg/dL (8.5-10.1); Carbon Dioxide 30.2 meq/L (21.0-32.0); Chloride 100 meq/L (98-107); Glomerular Filtration Rate 33 mL/min (>89); Glucose,Random 105 mg/dL (74-106); Magnesium 2.4 mg/dL (1.5-2.5); Potassium 3.3 meq/L (3.5-5.1); Sodium 142 meq/L (136-145)
[2018-02-06 06:40] LABS: Alanine Aminotransferase 29 U/L (12-78)
[2018-02-06 06:42] LABS: Alkaline Phosphatase 124 U/L (45-117); Total Protein 6.3 g/dL (6.4-8.2)
[2018-02-06] MEDS: Insulin NovoLOG Aspart Correctional Sugar Inj SQ SCH ×4 (09:29→21:04)
[2018-02-06] MEDS: Senna/Docusate Sodium 8.6/50 MG Tablet PO SCH ×2 (09:56→21:06)
[2018-02-06] MEDS: Pantoprazole Inj 40 MG Vial IV.PUSH SCH (09:56)
--- NOTE | 2018-02-06 10:17 | P.PNCC ---
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 Reportedly he was watching TV and stood up to walk to the bathroom at about 20:10 and fell on a tile floor hitting the right side of his head. His reports brief loss of consciousness. No noted seizure activity. [facility] was called. Vomited x1 during transport. GCS was 14 on arrival. In the ED workup included CT brain which demonstrated R temporoparietal subarachnoid hemorrhage and focal L frontal intraparenchymal hemorrhage. The emergency department physician discussed with Dr. Montenegro who requested Eliquis reversal. Patient's states that he last took Eliquis at 18:00 on 02/04. Of note, patient had a fall and presented in September 2017 with R hemiparesis. He had been on warfarin and initial CT negative. 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 He was felt to have M2 segment stroke. He was not administered TPA due to multiple contraindications. On followup imaging, he was found to have L subarachnoid hemorrhage, small r subdural without shift. He was followed by neurology and neurosurgery; no surgical intervention. states he was discharged home with home therapy and was not noted to have residual weakness. SUBJ 02/05: Lying in bed, patient complains about epistaxis since he woke up an hour ago. His platelet count is 68. I have ordered 1 packed unit of platelets stat, also 1 unit of FFP stat for INR of 1.4. MRI of the brain had been ordered per Dr. Montenegro request. Neurosurgery consult is pending 02/06: Lying in bed no acute distress, epistaxis controlled, right nare has a Rhino Rocket in place. MRI brain yesterday showed subarachnoid hemorrhage, parenchymal hemorrhage and small subdural hematoma involving the right temporal and occipital lobes, also intraparenchymal blood involving frontal lobes and left temporal lobe. Objective Vital Signs / I&O: Vital Signs 02/05/18 12:00 02/05/18 13:05 02/05/18 13:56 Temperature 98.4 F 98.4 F 98.8 F Pulse Rate 69 72 71 Respiratory Rate 21 22 19 Blood Pressure 117/56 L 117/56 L 118/68 Pulse Oximetry 97 97 97 02/05/18 14:00 02/05/18 16:00 02/05/18 18:00 Temperature 98.3 F Pulse Rate 66 71 83 Respiratory Rate 18 Blood Pressure 136/63 Pulse Oximetry 97 02/05/18 19:25 02/05/18 20:00 02/05/18 21:22 Temperature 99.6 F 99.6 F 98.9 F Pulse Rate 84 84 83 Respiratory Rate 24 24 25 H Blood Pressure 143/89 H 143/89 H 137/62 Pulse Oximetry 02/05/18 22:00 02/06/18 00:00 02/06/18 02:00 Temperature 98.9 F Pulse Rate 87 85 89 Respiratory Rate 17 Blood Pressure 138/62 Pulse Oximetry 02/06/18 04:00 02/06/18 06:00 02/06/18 08:00 Temperature 99 F 98.3 F Pulse Rate 89 75 81 Respiratory Rate 18 22 Blood Pressure 129/62 119/69 Pulse Oximetry 97 Intake & Output 02/05/18 02/06/18 02/06/18 18:59 06:59 18:59 Intake Total 100 / 100 0 / 0 Balance 100 / 100 0 / 0 Weight 89.2 kg Intake: IV 100 / 100 KCl 20 mEq Premix Inj 20 meq In 100 / 100 100 ml @ 50 mls/hr IV.SIG Q2H [facility] Rx#:[id number] Intake (Blood Product) Amt 0 / 0 0 / 0 Plasma Thawed 5 Day Cp2d Unit 0 / 0 [id number] Plt Pheresis B Leukoreduced 0 / 0 Unit [id number] Plt Pheresis B Leukoreduced 0 / 0 Unit [id number] Other: Date of Last Bowel Movement 02/05/18 Result Diagrams: 02/06/18 05:09 02/06/18 05:09 Objective Remarks: GENERAL: Elderly male who is lying in bed no acute distress SKIN: Warm and dry. Gauze dressing in place over right forearm. HEAD: Normocephalic. Large scalp hematoma overlying R temporal region EYES: R periorbital hematoma, Pupils equal and round, 3 mm and reactive. Subconjunctival hemorrhage right lateral bulbar conjunctiva. ENT: Right nostril has Rhino Rocket in place. No septal hematoma. Mucous membranes pink and moist. NECK: Trachea midline. No JVD. No midline tenderness, stepoff or deformity. CARDIOVASCULAR: irregular. No murmurs rubs or gallops. RESPIRATORY: No accessory muscle use. Clear to auscultation. Breath sounds equal bilaterally. GASTROINTESTINAL: Abdomen soft, non-tender, nondistended. Healed vertical scar upper abdomen. MUSCULOSKELETAL: Extremities without clubbing, cyanosis. Edema 2+ bilateral lower extremities. NEUROLOGICAL: Awake and alert. Oriented to person, place. No pronator drift, no tremor. 5/5 biceps/triceps bilaterally, notereader strength is normal bilaterally. Normal lower extremity strength. Assessment and Plan - Problem List (1) CKD (chronic kidney disease) stage 4, GFR 15-29 ml/min Code(s): N18.4 - Chronic kidney disease, stage 4 (severe) Status: Acute (2) Fall Code(s): W19.XXXA - Unspecified fall, initial encounter Status: Acute (3) Scalp hematoma Code(s): S00.03XA - Contusion of scalp, initial encounter Status: Acute (4) H/O stroke within last year Code(s): Z86.73 - Personal history of transient ischemic attack (TIA), and cerebral infarction without residual deficits Status: Acute (5) TBI (traumatic brain injury) Code(s): S06.9X9A - Unspecified intracranial injury with loss of consciousness of unspecified duration, initial encounter Status: Acute (6) BPH (benign prostatic hyperplasia) Code(s): N40.0 - Benign prostatic hyperplasia without lower urinary tract symptoms Status: Chronic (7) Subconjunctival hemorrhage of right eye Code(s): H11.31 - Conjunctival hemorrhage, right eye Status: Acute (8) H/O malignant neuroendocrine tumor Code(s): Z85.9 - Personal history of malignant neoplasm, unspecified Status: Resolved (9) Thrombocytopenia Code(s): D69.6 - Thrombocytopenia, unspecified Status: Chronic (10) Iron deficiency anemia Code(s): D50.9 - Iron deficiency anemia, unspecified Status: Chronic (11) S/P TAVR (transcatheter aortic valve replacement) Code(s): Z95.2 - Presence of prosthetic heart valve Status: Acute (12) Subarachnoid bleed Code(s): I60.9 - Nontraumatic subarachnoid hemorrhage, unspecified Status: Acute (13) Chronic anticoagulation Code(s): Z79.01 - [facility] (current) use of 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 Status: Chronic - Assessment and Plan Plan: NEURO: TBI with loss of consciousness R temporoparietal subarachnoid hemorrhage in left frontal intraparenchymal hemorrhage. Small subdural hematoma involving the right temporal and occipital lobes. Right scalp hematoma Fall CT maxillofacial is negative for acute fracture. Has some acute epistaxis, now well controlled after Rhino Rocket and platelet transfusion MRI of the brain as above CT C-spinenegative for fracture CT brain 02/04 with traumatic SAH. Not currently candidate for CTA due to renal dysfunction. Prior CTA 10/09/17 negative for vascular malformation or aneurysm ( L carotid occlusion noted) Cardene if needed to maintain SBP <150. Keppra not currently indicated based on mild TBI by GCS criteria. Hold Eliquis, s/p Kcentra as per below. Neurosurgery Dr. Montenegro RESP: Prior history of tobacco abuse IS q 1 hour awake CV: HTN Atrial fibrillation on chronic anti-coagulation with Eliquis History of aortic stenosis now status post TAVR 08/2017. Cardene as needed to maintain systolic blood pressure less than 150 Hold Eliquis and ASA due to ICH. Hold statin, metoprolol, lasix and metolazone for now. Consider resuming po meds if he passes speech swallow eval. GI: GERD Protonix for stress ulcer prophylaxis and history of GERD. Speech therapy to evaluate swallow. Hold off on NGT insertion until epistaxis improves. FEN/RENAL: BPH s/p TUMT CKD stage IIIb-IV Acute hypokalemia states he has been referred to Dr. Kamila Jha but hasn't followed up yet. Renal u/s, place lópez if e/o obstruction. Holding tamulosin, finasteride until able to take po. Has been on Lasix and metolazone for edema. Holding IVF considering significant peripheral edema, mild pulm edema. Likely resume diuretics soon. 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 Adan Cee as an outpatient for above, follow PET scans have shown no residual disease. Resume iron supplementation, B6, folic acid if passes swallow eval. ENDO: Diabetes mellitus Hold detemir. Monitor glucose AC/at bedtime and initiate medium dose insulin sliding scale as indicated PROPH: SCDs for DVT prophylaxis. He has chronically been on Eliquis which is on hold but pharmacologic DVT prophylaxis is contraindicated due to subarachnoid hemorrhage. Protonix for stress ulcer prophylaxis ACCESS: Peripheral IV providing adequate access at this time Patient is critically ill with TBI including traumatic subarachnoid hemorrhage in need of urgent reversal anticoagulation to decrease chance of expansion of hemorrhage. Discussed with Dr. Montenegro and HEALTH COACH. Patient and updated at bedside Patient and his indicate that he is full code Patient is of advanced age and has undergone successful TAVR, however his subsequent course has been complicated by readmission for sepsis, ischemic stroke with fall and subsequent SAH and SDH, now additional fall and SAH. He has known left carotid occlusion and A fib which place him at risk for embolic stroke, though obviously with hemorrhage while on anticoagulation. He is at risk for further complication, will ask palliative care to follow and assist with ongoing address of goals of care/code status. Level 3
--- NOTE | 2018-02-06 13:06 | P.PNNS ---
Subjective Interval history: 02/06: Neuro reported to be stable overnight <ShaunAmy - Last Filed: 02/06/18 12:55> Physical Exam Vital signs: Vital Signs 02/05/18 13:05 02/05/18 13:56 02/05/18 14:00 Temperature 98.4 F 98.8 F Pulse Rate 72 71 66 Respiratory Rate 22 19 Blood Pressure 117/56 L 118/68 Pulse Oximetry 97 97 02/05/18 16:00 02/05/18 18:00 02/05/18 19:25 Temperature 98.3 F 99.6 F Pulse Rate 71 83 84 Respiratory Rate 18 24 Blood Pressure 136/63 143/89 H Pulse Oximetry 97 02/05/18 20:00 02/05/18 21:22 02/05/18 22:00 Temperature 99.6 F 98.9 F Pulse Rate 84 83 87 Respiratory Rate 24 25 H Blood Pressure 143/89 H 137/62 Pulse Oximetry 02/06/18 00:00 02/06/18 02:00 02/06/18 04:00 Temperature 98.9 F 99 F Pulse Rate 85 89 89 Respiratory Rate 17 18 Blood Pressure 138/62 129/62 Pulse Oximetry 02/06/18 06:00 02/06/18 08:00 02/06/18 10:00 Temperature 98.3 F Pulse Rate 75 81 88 Respiratory Rate 22 Blood Pressure 119/69 Pulse Oximetry 97 02/06/18 12:00 Temperature 98.4 F Pulse Rate 71 Respiratory Rate 20 Blood Pressure 147/65 H Pulse Oximetry 98 Intake & Output 02/05/18 02/06/18 02/06/18 18:59 06:59 18:59 Intake Total 100 / 100 0 / 0 Balance 100 / 100 0 / 0 Weight 89.2 kg Intake: IV 100 / 100 KCl 20 mEq Premix Inj 20 meq In 100 / 100 100 ml @ 50 mls/hr IV.SIG Q2H [facility] Rx#:[id number] Intake (Blood Product) Amt 0 / 0 0 / 0 Plasma Thawed 5 Day Cp2d Unit 0 / 0 [id number] Plt Pheresis B Leukoreduced 0 / 0 Unit [id number] Plt Pheresis B Leukoreduced 0 / 0 Unit [id number] Other: Date of Last Bowel Movement 02/05/18 Narrative: GENERAL: Resting in bed, no acute distress SKIN: Warm and dry. HEAD: Normocephalic. Right facial contusion and ecchymosis EYES: No scleral icterus. No injection or drainage. NECK: Supple, trachea midline. No JVD or lymphadenopathy. CARDIOVASCULAR: Irregularly irregular RESPIRATORY: Breath sounds equal bilaterally. No accessory muscle use. MUSCULOSKELETAL: No cyanosis, or edema. Neuro: Awakens, pupils equal. Moves all 4 extremities <Amy Dunn - Last Filed: 02/06/18 12:55> Vital signs: Vital Signs 02/05/18 18:00 02/05/18 19:25 02/05/18 20:00 Temperature 99.6 F 99.6 F Pulse Rate 83 84 84 Respiratory Rate 24 24 Blood Pressure 143/89 H 143/89 H Pulse Oximetry 02/05/18 21:22 02/05/18 22:00 02/06/18 00:00 Temperature 98.9 F 98.9 F Pulse Rate 83 87 85 Respiratory Rate 25 H 17 Blood Pressure 137/62 138/62 Pulse Oximetry 02/06/18 02:00 02/06/18 04:00 02/06/18 06:00 Temperature 99 F Pulse Rate 89 89 75 Respiratory Rate 18 Blood Pressure 129/62 Pulse Oximetry 02/06/18 08:00 02/06/18 10:00 02/06/18 12:00 Temperature 98.3 F 98.4 F Pulse Rate 81 88 71 Respiratory Rate 22 20 Blood Pressure 119/69 147/65 H Pulse Oximetry 97 98 02/06/18 14:00 02/06/18 16:00 Temperature 98.3 F Pulse Rate 70 84 Respiratory Rate 20 Blood Pressure 144/64 H Pulse Oximetry 98 Intake & Output 02/05/18 02/06/18 02/06/18 18:59 06:59 18:59 Intake Total 100 / 100 0 / 0 Balance 100 / 100 0 / 0 Weight 89.2 kg Intake: IV 100 / 100 KCl 20 mEq Premix Inj 20 meq In 100 / 100 100 ml @ 50 mls/hr IV.SIG Q2H [facility] Rx#:[id number] Intake (Blood Product) Amt 0 / 0 0 / 0 Plasma Thawed 5 Day Cp2d Unit 0 / 0 [id number] Plt Pheresis B Leukoreduced 0 / 0 Unit [id number] Plt Pheresis B Leukoreduced 0 / 0 Unit [id number] Other: Date of Last Bowel Movement 02/05/18 Narrative: The patient is alert, awake. Comfortable, in no acute distress. Speech is fluent. Right facial contusion and ecchymosis Cranial nerve examination: pupils to be equal, round and reactive to light. Extra-ocular movements are intact. Facial motor and sensory function are normal and symmetrical. Gross hearing appears intact. Sternocleidomastoid and trapezius muscles are symmetrical. Other cranial nerves are intact. Neck is soft and supple with a good range of motion without pain. Muscle strength is normal in all muscle groups of both upper and lower extremities. Sensory examination is intact to light touch and pin prick in both the upper and lower extremities. Deep tendon reflexes are symmetrical in both upper and lower extremities. There is a bilateral plantar flexion response. Cerebellar examination is unremarkable, without deficits. Lungs are clear Heart regular rhythm is regular rate Skin warm and dry <Suleiman Montenegro - Last Filed: 02/06/18 17:57> Assessment and Plan - Plan Impression 87-year-old male with TBI, subarachnoid hemorrhage, intraparenchymal hemorrhage , subdural hemorrhage Head MRI 02/05/18 00:00 CONCLUSION: 1. Traumatic brain injury which includes significant subarachnoid hemorrhage, parenchymal hemorrhage and small subdural hematoma involving the right temporal and occipital lobes. 2. Additional hemorrhage or identified in both frontal lobes and left temporal lobe. 3. Right frontal cephalohematoma 4. No evidence of significant mass effect, intra-axial edema or acute infarct. Cervical Spine CT 02/04/18 21:19 CONCLUSION: 1. No evidence of compression deformity or spondylolisthesis. 2. Multilevel discogenic degenerative changes and facet joint hypertrophy. Face CT 02/04/18 21:19 CONCLUSION: 1. No facial bone fractures seen. 2. Opacified frontal ethmoid and maxillary sinuses with evidence of resorption of nasal and ethmoid septa suggests chronic process. There is, however, an air- fluid level in the right maxillary sinus. Head CT 02/04/18 21:19 CONCLUSION: 1. Evidence of closed head injury with subarachnoid hemorrhage extending from low to high convexity on the right side. There is also a focal parenchymal hemorrhage in the highest convexity left frontal region. 2. Large right parietal scalp hematoma without evidence of skull fracture. 3. Opacified frontal, ethmoid, and maxillary sinuses. Plan Continue nonsurgical management Dr. Montenegro requesting neurology evaluation for syncope Critical care management <Amy Dunn - Last Filed: 02/06/18 12:55> - Plan I r Problem List (1) CKD (chronic kidney disease) stage 4, GFR 15-29 ml/min Code(s): N18.4 - Chronic kidney disease, stage 4 (severe) Status: Acute (2) Fall Code(s): W19.XXXA - Unspecified fall, initial encounter Status: Acute (3) Scalp hematoma Code(s): S00.03XA - Contusion of scalp, initial encounter Status: Acute (4) H/O stroke within last year Code(s): Z86.73 - Personal history of transient ischemic attack (TIA), and cerebral infarction without residual deficits Status: Acute (5) TBI (traumatic brain injury) Code(s): S06.9X9A - Unspecified intracranial injury with loss of consciousness of unspecified duration, initial encounter Status: Acute (6) BPH (benign prostatic hyperplasia) Code(s): N40.0 - Benign prostatic hyperplasia without lower urinary tract symptoms Status: Chronic (7) Subconjunctival hemorrhage of right eye Code(s): H11.31 - Conjunctival hemorrhage, right eye Status: Acute (8) H/O malignant neuroendocrine tumor Code(s): Z85.9 - Personal history of malignant neoplasm, unspecified Status: Resolved (9) Thrombocytopenia Code(s): D69.6 - Thrombocytopenia, unspecified Status: Chronic (10) Iron deficiency anemia Code(s): D50.9 - Iron deficiency anemia, unspecified Status: Chronic (11) S/P TAVR (transcatheter aortic valve replacement) Code(s): Z95.2 - Presence of prosthetic heart valve Status: Acute (12) Subarachnoid bleed Code(s): I60.9 - Nontraumatic subarachnoid hemorrhage, unspecified Status: Acute (13) Chronic anticoagulation Code(s): Z79.01 - local [employer] (current) use of 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 Status: Jake eviewed his MRI Cervical Spine CT 02/04/18 21:19 CONCLUSION: 1. No evidence of compression deformity or spondylolisthesis. 2. Multilevel discogenic degenerative changes and facet joint hypertrophy. Chest X-Ray 02/04/18 21:19 CONCLUSION: Cardiomegaly and central bronchopulmonary markings indistinctness similar to prior. Face CT 02/04/18 21:19 CONCLUSION: 1. No facial bone fractures seen. 2. Opacified frontal ethmoid and maxillary sinuses with evidence of resorption of nasal and ethmoid septa suggests chronic process. There is, however, an air- fluid level in the right maxillary sinus. Head CT 02/04/18 21:19 CONCLUSION: 1. Evidence of closed head injury with subarachnoid hemorrhage extending from low to high convexity on the right side. There is also a focal parenchymal hemorrhage in the highest convexity left frontal region. 2. Large right parietal scalp hematoma without evidence of skull fracture. 3. Opacified frontal, ethmoid, and maxillary sinuses. Pelvis X-Ray 02/04/18 21:19 CONCLUSION: No gross bony abnormality seen. Abdomen/Bladder Ultrasound 02/05/18 00:00 CONCLUSION: 1. Echogenic kidneys consistent with medical renal disease. No evidence for obstructive uropathy. 2. Bilateral renal cysts with a dominant 7.2 cm cyst in the superior pole of the right kidney. 3. Small amount ascites. 4. Prominent prostate. Head MRI 02/05/18 00:00 CONCLUSION: 1. Traumatic brain injury which includes significant subarachnoid hemorrhage, parenchymal hemorrhage and small subdural hematoma involving the right temporal and occipital lobes. 2. Additional hemorrhage or identified in both frontal lobes and left temporal lobe. 3. Right frontal cephalohematoma 4. No evidence of significant mass effect, intra-axial edema or acute infarct. TBI with loss of consciousness R temporoparietal subarachnoid hemorrhage in left frontal intraparenchymal hemorrhage. Right scalp hematoma Fall CT maxillofacial is negative for acute fracture. Traumatic SAH. Recommend MRI brain Prior CTA 10/09/17 negative for vascular malformation or aneurysm (L carotid occlusion noted) Hypertension Cardene if needed to maintain SBP <150. Hold Eliquis, Give Kcentra as per below. Atrial fibrillation on chronic anti-coagulation with Eliquis History of aortic stenosis now status post TAVR 08/2017. Cardene as needed to maintain systolic blood pressure less than 150 Hold Eliquis and ASA due to ICH. Hold statin, metoprolol, lasix and metolazone for now. Consider resuming po meds if he passes speech swallow eval. GERD Protonix for stress ulcer prophylaxis and history of GERD. Acute hypokalemia Renal u/s, place lópez if e/o obstruction. Hold tamulosin, finasteride until able to take po. Has been on lasix and metolazone for edema. KCL 80 MEQ IV now and recheck. 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 Adan Cee as an outpatient for above, follow PET scans have shown no residual disease. REsume iron supplementation, B6, folic acid if passes swallow eval. Diabetes mellitus Hold detemir Monitor glucose AC/at bedtime and initiate medium dose insulin sliding scale as indicated Pulmonary: aggressive pulmonary toilette, nasotracheal suction, and breathing treatments with nebulizers. Daily PT and OT Renal: Continue to monitor closely urine output, BUN and creatinine ID continue to monitor for signs of infection Edin hose and SCD's for DVT prophylaxis Further recommendations will be provided depending on the patient's clinical evaluation and follow up studies. Caprini VTE Risk Assessment Caprini VTE Risk Assessment: Moderate/High Risk (score >= 2) VTE Pharmacological Exception Reason: Hemorrhage Caprini Risk Assessment Model: Point Value = 1 Point Value = 2 Point Value = 3 Point Value = 5 Age 41-60 Minor surgery BMI > 25 kg/m2 Swollen legs Varicose veins or History of unexplained or recurrent spontaneous Oral contraceptives or hormone replacement Sepsis (< 1 month) Serious lung disease, including pneumonia (< 1 month) Abnormal pulmonary function Acute myocardial infarction Congestive heart failure (< 1 month) History of inflammatory bowel disease Medical patient at bed rest Age 61-74 Arthroscopic surgery Major open surgery (> 45 min) Laparoscopic surgery (> 45 min) Malignancy Confined to bed (> 72 hours) Immobilizing plaster cast Central venous access Age >= 75 History of VTE Family history of VTE Factor V Leiden Prothrombin [id number] Lupus anticoagulant Anticardiolipin antibodies Elevated serum homocysteine Heparin-induced thrombocytopenia Other congenital or acquired thrombophilia Stroke (< 1 month) Elective arthroplasty Hip, pelvis, or leg fracture Acute spinal cord injury (< 1 month) Prophylaxis Regimen: Total Risk Factor Score Risk Level Prophylaxis Regimen 0-1 Low Early ambulation 2 Moderate Order ONE of the following: *Sequential Compression Device (SCD) *Heparin 5000 units SQ BID 3-4 Higher Order ONE of the following medications: *Heparin 5000 units SQ TID *Enoxaparin/Lovenox 40 mg SQ daily (WT < 150 kg, CrCl > 30 mL/min) *Enoxaparin/Lovenox 30 mg SQ daily (WT < 150 kg, CrCl > 10-29 mL/min) *Enoxaparin/Lovenox 30 mg SQ BID (WT < 150 kg, CrCl > 30 mL/min) AND/OR *Sequential Compression Device (SCD) 5 or more Highest Order ONE of the following medications: *Heparin 5000 units SQ TID (Preferred with Epidurals) *Enoxaparin/Lovenox 40 mg SQ daily (WT < 150 kg, CrCl > 30 mL/min) *Enoxaparin/Lovenox 30 mg SQ daily (WT < 150 kg, CrCl > 10-29 mL/min) *Enoxaparin/Lovenox 30 mg SQ BID (WT < 150 kg, CrCl > 30 mL/min) AND *Sequential Compression Device (SCD) Patient is critically ill with TBI including traumatic subarachnoid hemorrhage in need of urgent reversal anticoagulation to decrease chance of expansion of hemorrage. Discussed with ED physician and with Dr Jeronimo. The exam, history, and the medical decision-making described in the above note were completed with the assistance of the mid-level provider. I reviewed and agree with the findings presented. I attest that I had a [id number] encounter with the patient on the same day, and personally performed and documented my assessment and findings in the medical record. <Suleiman Montenegro - Last Filed: 02/06/18 17:57>
--- NOTE | 2018-02-06 14:52 | P.PNPAL ---
Reason for Visit Reason for visit: a. To assist with evaluation and management of symptoms including: dyspnea/ cough, pain, debility b. To assist medical decision maker(s) with: better understanding of current medical conditions; weighing benefits/burdens of medical treatment options; making medical treatment decisions. Subjective Subjective/Interval History: Dual visit with ALVA Martinez. Pt OOB to chair, waiting on lunch. and son at bedside. Pt c/o pain in right ribs and left arm. right flank tender on exam. His left arm hurts when he tries to lift it above his shoulder. Denies SOB at rest today. Denied SOB during therapy except for "I did have to stop and rest once." Sat 98%. Breathing unlabored and lungs CTA. He ambulated 6 feet with PT with no assistance. MRI showed hemorrhages. Neurosurgery consult appreciated. Consults pending with nephrology, cardiology. Family/Friend Interactions: Discussion with pt, his , and son. They had multiple questions about pt's medical status and treatment options: -further discussed Patients general health, functional status, and cognitive changes in the months leading up to the current hospitalization - they provide additional information such as how he was having dizzy spells and BLE weakness prior to TAVR, illustrating a chronic decline -Patient/family understanding of the current medical problems - including worsening kidney function -Patient/family understanding of prognosis - Pt's family has concerns about recurring falls, risks for hemorrhage vs clot. pt said "I had a good life." -Current medical treatment options and benefits/burdens of those options - specifically anticoagulation and risk of clots vs hemorrhages. -Likely scenarios with ongoing aggressive care -Questions answered to the best of my ability - Palliative care contact information provided Pt and family beginning to understand complexity in managing pt's comorbidities without exacerbating others. Still verbalizing aggressive goals. Advance Directives Advance Directives Date on File: 07/19/92 Health Care Surrogate Name and Number: Veda Renteria [phone] Documented care wishes:: Living will with standard verbiage requesting life prolonging procedures and artificial nutrition be withheld if it would only serve to artificially prolong dying process. Objective Vital Signs: Vital Signs 02/05/18 16:00 02/05/18 18:00 02/05/18 19:25 Temperature 98.3 F 99.6 F Pulse Rate 71 83 84 Respiratory Rate 18 24 Blood Pressure 136/63 143/89 H Pulse Oximetry 97 02/05/18 20:00 02/05/18 21:22 02/05/18 22:00 Temperature 99.6 F 98.9 F Pulse Rate 84 83 87 Respiratory Rate 24 25 H Blood Pressure 143/89 H 137/62 Pulse Oximetry 02/06/18 00:00 02/06/18 02:00 02/06/18 04:00 Temperature 98.9 F 99 F Pulse Rate 85 89 89 Respiratory Rate 17 18 Blood Pressure 138/62 129/62 Pulse Oximetry 02/06/18 06:00 02/06/18 08:00 02/06/18 10:00 Temperature 98.3 F Pulse Rate 75 81 88 Respiratory Rate 22 Blood Pressure 119/69 Pulse Oximetry 97 02/06/18 12:00 Temperature 98.4 F Pulse Rate 71 Respiratory Rate 20 Blood Pressure 147/65 H Pulse Oximetry 98 Intake & Output 02/05/18 02/06/18 02/06/18 18:59 06:59 18:59 Intake Total 100 / 100 0 / 0 Balance 100 / 100 0 / 0 Weight 89.2 kg Intake: IV 100 / 100 KCl 20 mEq Premix Inj 20 meq In 100 / 100 100 ml @ 50 mls/hr IV.SIG Q2H RAMÍREZ Rx#:[id number] Intake (Blood Product) Amt 0 / 0 0 / 0 Plasma Thawed 5 Day Cp2d Unit 0 / 0 [id number] Plt Pheresis B Leukoreduced 0 / 0 Unit [id number] Plt Pheresis B Leukoreduced 0 / 0 Unit [id number] Other: Date of Last Bowel Movement 02/05/18 Physical Exam: CONSTITUTIONAL/GENERAL: This is an adequately nourished patient, in no apparent distress. SKIN: No jaundice, rashes, or lesions. + Ecchymoses on upper extremities. Skin temperature appropriate. Not diaphoretic. HEAD: Ecchymosis right face. Normocephalic. EYES: PERRL. Extraocular motions intact. No scleral icterus. No injection or drainage. Fundi not examined. Ecchymosis and swelling around right orbit. ENT: Hearing grossly normal. Nose with nasal tampon, scant bleeding NECK: Trachea midline. Supple. CARDIOVASCULAR: RRR, faint murmur, no gallops, or rubs. No JVD. Peripheral pulses symmetric. RESPIRATORY/CHEST: Symmetric, unlabored respirations. Clear to auscultation. Breath sounds equal bilaterally. Diminished. right flank TTP GASTROINTESTINAL: Abdomen soft, non-tender, protuberant. No hepato-splenomegaly , or palpable masses. No guarding. Bowel sounds present. MUSCULOSKELETAL: Extremities without clubbing, cyanosis, No mottling or clubbing. trace BLE edema NEUROLOGICAL: Awake and alert. Motor and sensory grossly within normal limits. Follows commands. Moves all extremities. PSYCHIATRIC: No obvious anxiety/depression. no apparent hallucinations or other psychotic thought process. Diagnostic Tests Laboratory: Laboratory Results - last 72 hr 02/04/18 02/04/18 02/04/18 21:35 21:35 21:35 WBC 4.1 RBC 2.85 L Hgb 9.3 L Hct 27.6 L MCV 96.6 MCH 32.7 MCHC 33.8 RDW 15.3 Plt Count 86 L MPV 10.6 Prelim Diff (Auto) Slide review pending Neut % (Auto) 80.7 H Lymph % (Auto) 7.5 L [place] % (Auto) 8.1 H Eos % (Auto) 3.0 Baso % (Auto) 0.7 Neut # (Auto) 3.3 Lymph # (Auto) 0.3 L [place] # (Auto) 0.3 Eos # (Auto) 0.1 Baso # (Auto) 0.0 WBC Differential . Diff Scan Auto diff confirmed Differential Comment . Platelet Estimate Low L Platelet Morphology Normal Ovalocytes 1+ H PT 14.5 H INR 1.4 APTT 30.1 Sodium 138 Potassium 2.4 L* Chloride 95 L Carbon Dioxide 31.7 Anion Gap 11 BUN 45 H Creatinine 2.23 H Estimated GFR 28 L POC Glucose Random Glucose 183 H Calcium 8.7 Phosphorus Magnesium Total Bilirubin AST ALT Alkaline Phosphatase Total Protein Albumin Blood Type Antibody Screen Blood Bank Comment Bld Prod Order Comment 02/04/18 02/05/18 02/05/18 21:35 03:24 03:24 WBC 4.4 RBC 2.44 L Hgb 7.9 L Hct 23.7 L MCV 97.2 MCH 32.5 MCHC 33.4 RDW 14.9 Plt Count 68 L MPV 10.5 Prelim Diff (Auto) Slide review pending Neut % (Auto) 87.5 H Lymph % (Auto) 3.0 L [place] % (Auto) 8.4 H Eos % (Auto) 0.2 Baso % (Auto) 0.9 Neut # (Auto) 3.9 Lymph # (Auto) 0.1 L [place] # (Auto) 0.4 Eos # (Auto) 0.0 Baso # (Auto) 0.0 WBC Differential . Diff Scan Auto diff confirmed Differential Comment . Platelet Estimate Low L Platelet Morphology Normal Ovalocytes PT INR APTT Sodium 140 Potassium 2.9 L* Chloride 98 Carbon Dioxide 31.8 Anion Gap 10 BUN 49 H Creatinine 2.18 H Estimated GFR 29 L POC Glucose Random Glucose 175 H Calcium 8.3 L Phosphorus 3.9 Magnesium 2.1 Total Bilirubin AST ALT Alkaline Phosphatase Total Protein Albumin Blood Type A Positive Antibody Screen Negative Blood Bank Comment Bld Prod Order Comment 02/05/18 02/05/18 02/05/18 11:47 11:49 12:40 WBC RBC Hgb Hct MCV MCH MCHC RDW Plt Count MPV Prelim Diff (Auto) Neut % (Auto) Lymph % (Auto) [place] % (Auto) Eos % (Auto) Baso % (Auto) Neut # (Auto) Lymph # (Auto) [place] # (Auto) Eos # (Auto) Baso # (Auto) WBC Differential Diff Scan Differential Comment Platelet Estimate Platelet Morphology Ovalocytes PT INR APTT Sodium Potassium 3.0 L Chloride Carbon Dioxide Anion Gap BUN Creatinine Estimated GFR POC Glucose Random Glucose Calcium Phosphorus Magnesium Total Bilirubin AST ALT Alkaline Phosphatase Total Protein Albumin Blood Type Antibody Screen Blood Bank Comment Bld Prod Order Comment 02/05/18 02/05/18 02/05/18 17:37 17:37 17:55 WBC 5.1 RBC 2.22 L Hgb 7.3 L Hct 21.9 L MCV 98.7 MCH 32.7 MCHC 33.2 RDW 15.6 Plt Count 90 L D MPV 9.6 Prelim Diff (Auto) Neut % (Auto) Lymph % (Auto) [place] % (Auto) Eos % (Auto) Baso % (Auto) Neut # (Auto) Lymph # (Auto) [place] # (Auto) Eos # (Auto) Baso # (Auto) WBC Differential Diff Scan Differential Comment Platelet Estimate Platelet Morphology Ovalocytes PT 13.2 H INR 1.3 APTT Sodium Potassium Chloride Carbon Dioxide Anion Gap BUN Creatinine Estimated GFR POC Glucose Random Glucose Calcium Phosphorus Magnesium Total Bilirubin AST ALT Alkaline Phosphatase Total Protein Albumin Blood Type Antibody Screen Blood Bank Comment Bld Prod Order Comment 02/05/18 02/06/18 02/06/18 21:46 05:09 05:09 WBC 4.3 RBC 2.21 L Hgb 7.3 L Hct 21.9 L MCV 99.3 MCH 32.8 MCHC 33.1 RDW 15.5 Plt Count 93 L MPV 9.5 Prelim Diff (Auto) Neut % (Auto) Lymph % (Auto) [place] % (Auto) Eos % (Auto) Baso % (Auto) Neut # (Auto) Lymph # (Auto) [place] # (Auto) Eos # (Auto) Baso # (Auto) WBC Differential Diff Scan Differential Comment Platelet Estimate Platelet Morphology Ovalocytes PT INR APTT Sodium 142 Potassium 3.3 L Chloride 100 Carbon Dioxide 30.2 Anion Gap 12 BUN 53 H Creatinine 1.94 H Estimated GFR 33 L POC Glucose 161 H Random Glucose 105 Calcium 8.8 Phosphorus Magnesium 2.4 Total Bilirubin 1.5 H AST 58 H ALT 29 Alkaline Phosphatase 124 H Total Protein 6.3 L Albumin 3.1 L Blood Type Antibody Screen Blood Bank Comment Bld Prod Order Comment Result Diagrams: 02/12/18 04:00 02/12/18 04:00 Assessment and Plan Pertinent Non-Medical Issues: Psychosocial: Pt is with 5 children. He is originally from [place] and has been in [place] for nearly 30 years. 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 Spiritual: L[employer]. Family's truss maker currently attending to spiritual needs. Legal: Pt currently is capacitated to make medical decision. IN the event he becomes incapacitated, in his living will he designated HCS Veda renteria Ethical issues impacting care: none identified Important Contacts: Veda Renteria [phone] Prognosis: This is an 87 yo male with hx falls, AF on eliquis, IDDM, CAD, s/p TAVR who presented after a fall and was found to have subarachnoid hemorrhage on the right side, focal parenchymal hemorrhage on the left side. He is stable currently but is at significant risk for developing pneumonia from aspiration of blood. He is also at risk for further falls, bleeds, and for clots and stroke. He requires anticoagulation for AF & mechanical valve but his tendency for falls is a complicating factor and presents a dilemma for future management. His underlying comorbitities further reduce his likelihood of making a full recovery. He has been declining since his TAVR and it is likely that he will continue to decline. If goals are aggressive, he will likely need rehab and therapy. Code Status: Full Code Plan: - LEGAL DECISON MAKER - Pt currently is capacitate to make medical decision. IN the event he becomes incapacitated, in his living will he designated HCS - CODE STATUS- full code - GOALS - Pt and family beginning to understand complexity in managing pt's comorbidities without exacerbating others. Still verbalizing aggressive goals. - SYMPTOMS - * pain - risk for pain d/t injuries from repeated falls, has significant bruising and swelling right side of face, numerous bruises on BUE. Today pt c/ o right flank pain on exam, left arm pain when lifting arm above shoulder height. Otherwise he appears comfortable. Could consider tylenol. REcommend caution with opiates or other sedating medications b/c of his risk for falls. * dyspnea/cough - Pt reports SOB on exertion since his TAVR. He had nosebleed after his fall and swallowed blood, reports having coughed up blood clots. He is at risk for PNA. Denies SOB at rest on my evaluation, had to stop and rest during PT today. * debility - Pt with decline since BEFORE TAVR, has been having activity intolerance, no longer able to assist with household duties and chores. At risk for falls. 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 PT following. consideration being made for home health after discharge. d/w pt and family use of assistive devices, fall precautions - Palliative care will continue to follow during hospital course as condition evolves, to assist patient/decision-maker with understanding of medical conditions, weighing benefits/burdens of treatment options, for clarification of goals of treatment. Additionally will assist with any symptoms of palliative concern Attestation Collaborating MD Comments: Chart reviewed. Case discussed with palliative care HOSPITAL CNA. Above HOSPITAL CNA note reviewed and I concur. . Attestation: To help prompt me to consider important information that might be impacting today's encounter and assessment, information from prior notes written by myself or my colleagues may have been "brought forward" into today's note. My signature on this note, however, is an attestation that I personally performed the exam, history, and/or decision-making noted today, and, unless otherwise indicated, the interactions with patient, family, and staff as well as the review of records all occurred today. I also attest that the listed assessment and stated plan reflect my best clinical judgment today based on the combination of historical information, prior notes, and today's exam/ interactions. When time spent is documented, it refers only to time spent today by the signer, or if indicated, combined time spent today by collaborating physician/nurse practitioner.
--- NOTE | 2018-02-06 15:35 | P.CONNP ---
History of Present Illness Service: Nephrology Reason for Consult: Acute on chronic kidney disease Primary Care Provider: UNKNOWN Family Provider: Edmund Bella Chief Complaint: Fall History of Present Illness: Mr. Miller was admitted after a fall in bathroom as a result of which he suffered subarachnoid hemorrhage and intraparenchymal bleeding. Patient was on Apixaban because of history of atrial fibrillation. He has history of TAVR in August of this year. At discharge, apparently fell in the parking lot, injured knee. Developed Staph sepsis, treated with Cefazolin for 36 days according to the . Other medical problems include CVA in September, IDDM, CAD, BPH. Patient has been seen by neurosurgery, no plans for surgical intervention. Creatinine was 1.47 on 10/14/17: he had developed MILLI in September. Creatinine was 2.23 on admission, it has gradually improved to 1.94. UA is not available. Review of Systems Constitutional: Reports anorexia Ears, Nose, Mouth, and Throat: Denies sore throat Cardiovascular: Denies chest pain Gastrointestinal: Denies abdominal pain, Denies difficulty swallowing Genitourinary: Denies blood in urine, Denies urinary frequency Neurologic: Denies loss of vision, Denies memory loss PMFSH - History History Provided By: Patient, Family Member - Medical History Medical History: Medical History (Last Reviewed 02/06/18 @ 13:32 by Jin Negron) Afib COPD (chronic obstructive pulmonary disease) Diabetes GERD (gastroesophageal reflux disease) Hx of Moh's micrographic surgery for skin cancer Hx of malignant neuroendocrine tumor Hypertension Stroke - Surgical History Surgical History: Surgical History (Last Reviewed 02/06/18 @ 13:32 by Jin Negron) H/O cataract removal with insertion of prosthetic lens H/O resection of small bowel History of cholecystectomy History of cholecystectomy History of loop recorder History of tonsillectomy Hx of colonoscopy S/p TAVR (transcatheter aortic valve replacement), bioprosthetic - Family History Family History: Family History (Last Updated 02/05/18 @ 11:05 by ALVA Hannon) Other Kidney disease Patient's father is Patient's mother is Stroke - Tobacco History Second Hand Smoke Exposure: No Tobacco Use In Past 30 Days: No Smoking Status: Former smoker Years Smoked: 17 - Alcohol History How Often Do You Have a Drink Containing Alcohol: Never - Substance Use History Substance History: No History of Abuse - Travel History Recent Travel in the [place] Within the Last 8 Weeks: No Recent Travel Out of the Country Within the Last 8 Weeks: No - Immunization History Tetanus Immunization: <5 Years Hx Influenza Vaccine This Season: No Medications and Allergies Active Medications: Active Medications Al Hydroxide/Mg Hydroxide (Milk Of Magnesia Liq) 30 ml PO Q12H PRN PRN Reason: Mild Constipation Albuterol (Albuterol Neb (Prn)) 2.5 mg NEB Q2HR NEB PRN PRN Reason: SHORTNESS OF BREATH/WHEEZING Bisacodyl (Dulcolax Supp) 10 mg RECTAL DAILY PRN PRN Reason: SEVERE CONSITIPATION Chlorhexidine Gluconate (Chlorhexidine 2% Cloth) 3 pack TOPICAL DAILY@0400 RAMÍREZ Stop: 02/10/18 03:59 Last Admin: 02/06/18 06:24 Dose: 3 pack Chlorhexidine Gluconate (Chlorhexidine 2% Cloth) 3 pack TOPICAL DAILY@0400 PRN PRN Reason: Extra cloth needed Stop: 02/10/18 03:59 Dextrose (D50w Vial) 50 ml IV.PUSH UNSCH PRN PRN Reason: PER HYPOGLYCEMIA PROTOCOL Glucagon (Glucagon Inj) 1 mg OTHER UNSCH PRN PRN Reason: for Hypoglycemia Protocol Nicardipine HCl 25 mg/ Sodium (Chloride) 250 mls @ 50 mls/hr IV.CONT TITRATE PRN; Protocol PRN Reason: Per Protocol Insulin Aspart (Novolog Insulin Correctional Sugar Inj) 0 unit SQ ACHS RAMÍREZ; Protocol Last Admin: 02/06/18 11:47 Dose: Not Given Lactulose (Lactulose Liq) 30 ml PO DAILY PRN PRN Reason: SEVERE CONSITIPATION Ondansetron HCl (Zofran Odt) 4 mg PO Q6H PRN PRN Reason: NAUSEA OR VOMITING Last Admin: 02/05/18 00:28 Dose: 4 mg Oxymetazoline HCl (Afrin 0.05% Nasal [place]) 2 spray NASAL Q12H PRN PRN Reason: epistaxis Last Admin: 02/05/18 21:37 Dose: 2 spray Pantoprazole Sodium (Protonix Inj) 40 mg IV.PUSH DAILY RAMÍREZ Last Admin: 02/06/18 09:56 Dose: 40 mg Senna/Docusate Sodium (Ora-Colace) 1 tab PO BID [facility] Last Admin: 02/06/18 09:56 Dose: 1 tab Sennosides (Senokot) 17.2 mg PO Q12H PRN PRN Reason: Moderate Constipation Sodium Chloride (Ns Flush) 2 ml IV.FLUSH BID [facility] Last Admin: 02/06/18 09:57 Dose: 2 ml Sodium Chloride (Ns Flush) 2 ml IV.FLUSH PRN PRN PRN Reason: FLUSH AFTER USING IV ACCESS Allergies Allergy/AdvReac Type Severity Reaction Status Date / Time niacin Allergy Unknown Nausea/Vomi Verified 02/04/18 21:42 ting sitagliptin AdvReac Severe STOMACH Verified 02/04/18 21:42 PAIN Home Medications Medication Instructions Recorded Confirmed Type apixaban [Eliquis] 2.5 mg PO BID 02/04/18 02/04/18 History aspirin 81 mg PO DAILY 02/04/18 02/04/18 History atorvastatin 40 mg PO DAILY 02/04/18 02/04/18 History cholecalciferol (vitamin D3) 1,000 unit PO DAILY 02/04/18 02/04/18 History [Vitamin D3] coenzyme Q10 [Co Q-10] 100 mg PO DAILY 02/04/18 02/04/18 History ferrous gluconate 2 mg/kg PO TID 02/04/18 02/04/18 History finasteride 5 mg PO DAILY 02/04/18 02/04/18 History folic acid 1 mg PO DAILY 02/04/18 02/04/18 History furosemide 40 mg PO BID 02/04/18 02/04/18 History insulin detemir U-100 [Levemir 18 unit SUB-Q QPM 02/04/18 02/04/18 History U-100 Insulin] loratadine [Claritin] 10 mg PO DAILY 02/04/18 02/04/18 History magnesium 500 mg PO DAILY 02/04/18 02/04/18 History metolazone 2.5 mg PO Q OTHER DAY 02/04/18 02/04/18 History metoprolol succinate [Toprol XL] 12.5 mg PO BID 02/04/18 02/04/18 History polyethylene glycol 3350 [Miralax] 17 g PO DAILY PRN 02/04/18 02/04/18 History potassium chloride 20 meq PO BID 02/04/18 02/04/18 History pyridoxine (vitamin B6) [Vitamin 100 mg PO DAILY 02/04/18 02/04/18 History B-6] tamsulosin 0.4 mg PO DAILY 02/04/18 02/04/18 History Exam Vital signs: Vital Signs 02/05/18 16:00 02/05/18 18:00 02/05/18 19:25 Temperature 98.3 F 99.6 F Pulse Rate 71 83 84 Respiratory Rate 18 24 Blood Pressure 136/63 143/89 H Pulse Oximetry 97 02/05/18 20:00 02/05/18 21:22 02/05/18 22:00 Temperature 99.6 F 98.9 F Pulse Rate 84 83 87 Respiratory Rate 24 25 H Blood Pressure 143/89 H 137/62 Pulse Oximetry 02/06/18 00:00 02/06/18 02:00 02/06/18 04:00 Temperature 98.9 F 99 F Pulse Rate 85 89 89 Respiratory Rate 17 18 Blood Pressure 138/62 129/62 Pulse Oximetry 02/06/18 06:00 02/06/18 08:00 02/06/18 10:00 Temperature 98.3 F Pulse Rate 75 81 88 Respiratory Rate 22 Blood Pressure 119/69 Pulse Oximetry 97 02/06/18 12:00 02/06/18 14:00 Temperature 98.4 F Pulse Rate 71 70 Respiratory Rate 20 Blood Pressure 147/65 H Pulse Oximetry 98 Intake & Output 02/05/18 02/06/18 02/06/18 18:59 06:59 18:59 Intake Total 100 / 100 0 / 0 Balance 100 / 100 0 / 0 Weight 89.2 kg Intake: IV 100 / 100 KCl 20 mEq Premix Inj 20 meq In 100 / 100 100 ml @ 50 mls/hr IV.SIG Q2H [facility] Rx#:[id number] Intake (Blood Product) Amt 0 / 0 0 / 0 Plasma Thawed 5 Day Cp2d Unit 0 / 0 [id number] Plt Pheresis B Leukoreduced 0 / 0 Unit [id number] Plt Pheresis B Leukoreduced 0 / 0 Unit [id number] Other: Date of Last Bowel Movement 02/05/18 - Constitutional no acute distress, chronically ill appearing - Routine HEENT Exam Head: Present: normocephalic Eye: Present: EOMI, PERRL ENT: Present: mucous membranes moist Comments: rhino nasal pack - Routine Neck Exam Present: supple. Absent: JVD, thyromegaly - Routine Respiratory Exam Present: CTA bilaterally - Routine Cardiovascular Exam Present: S1, S2, irregular rhythm - Routine Abdominal Exam Present: soft, normoactive bowel sounds - Routine Extremities Exam Present: edema - Routine Neurological Exam Present: oriented X3 Results - Lab Results 02/06/18 05:09 02/06/18 05:09 Most recent lab results Calcium 8.8 mg/dL (8.5-10.1) 02/06/18 05:09 Phosphorus 3.9 mg/dL (2.5-4.9) 02/05/18 03:24 Magnesium 2.4 mg/dL (1.5-2.5) 02/06/18 05:09 Assessment and Plan - Assessment (1) Acute kidney injury superimposed on chronic kidney disease Code(s): N17.9 - Acute kidney failure, unspecified; N18.9 - Chronic kidney disease, unspecified Status: Acute Plan: Renal function appears to be improving. Avoid nephrotoxic agents. Obtain UA and renal US. MILLI could have been due to renal hypoperfusion. Underlying CKD could be due to unresolved MILLI in September,may have underlying nephrosclerosis. Supportive care. Diuresis as needed. Replace potassium. (2) Subarachnoid bleed Code(s): I60.9 - Nontraumatic subarachnoid hemorrhage, unspecified Status: Acute Plan: conservative management at this time. Eliquis held. (3) TBI (traumatic brain injury) Code(s): S06.9X9A - Unspecified intracranial injury with loss of consciousness of unspecified duration, initial encounter Status: Acute Plan: Neurosurgery following. No plans for surgery (4) Atrial fibrillation Code(s): I48.91 - Unspecified atrial fibrillation Status: Acute Plan: anticoagulation held at this time due to intracranial bleeding.
[2018-02-06] MEDS ORDERED: ALPRAZolam 0.25 MG Tablet PO ONE (16:15)
[2018-02-06 22:26] LABS: Bilirubin,Urine Negative (Negative); Clarity,Urine Clear (Clear); Color,Urine Yellow (Yellw/Straw); Glucose,Urine (UA) Negative (Negative); Leukocyte Esterase,Urine Negative (Negative); Nitrite,Urine Negative (Negative); Specific Gravity,Urine 1.013 (1.002-1.035)
--- NOTE | 2018-02-07 01:16 | MB ---
cc: Alvaro Rush DO DATE: 02/06/2018 REASON FOR CONSULTATION: Syncopal episode, subarachnoid hemorrhage with previous TAVR, for recommendations. HISTORY OF PRESENT ILLNESS: Kim Miller is a pleasant 87-year-old male who sees my partner, Dr. Bhat, in the office and presented to [facility] Emergency Room after a fall. The patient was sitting with his , watching TV, and said he had to use the bathroom. He stood up, walked to the bathroom, and apparently the said that he did not go to the bathroom, but had fallen and landed on the right side of his face. There was a brief loss of consciousness. His lower half of his body was in the bathroom and his upper half was in the hallway, as if he had turned to come back. Upon arrival to the emergency room, his GCS was 14. A CT of the brain demonstrated a right temporoparietal subarachnoid hemorrhage and focal left frontal intraparenchymal hemorrhage. The patient was on Eliquis at the time and took his last dose the night of 02/04/2018. Dr. Montenegro, neurosurgery, requested Eliquis reversal. Of note, the patient has been in and out of the hospital a few times, with his TAVR in August 2017. Then, the patient had a fall in September 2017 with right hemiparesis. At that time, there was a concern for an M2 segment stroke, and on followup imaging, he was found to have a left subarachnoid hemorrhage, small right subdural without a shift. This was treated conservatively. PAST MEDICAL HISTORY: 1. Atrial fibrillation. 2. Chronic obstructive pulmonary disease. 3. Diabetes mellitus. 4. Gastroesophageal reflux disease. 5. Hypertension. 6. Ischemic stroke. 7. Intracranial hemorrhage with a left subarachnoid hemorrhage, small right subdural (09/2017). PAST SURGICAL HISTORY: 1. Cardiac catheterization (08/04/2017): RCA has mild luminal irregularities. There is a stent in the mid portion which is patent. Left main is calcified. LAD distally has 50% disease. LAD gives off a diagonal artery, which is patent and diffusely diseased. Left circumflex is diffusely calcified. In the mid portion, there is a 95-99% eccentric calcified plaque after the first OM. Apparently at that time, it was felt that the circumflex was too small for intervention and not amenable to PCI. 2. 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 3. Cataract removal with insertion of prosthetic lens. 4. Resection of small bowel. 5. Cholecystectomy. 6. Loop recorder placement (10/13/2017) with a [employer] LIN[employer] loop recorder (serial number [id number]). 7. Tonsillectomy. 8. Cholecystectomy. 9. Mohs micrographic surgery for skin cancer. ALLERGIES: 1. NIACIN. 2. SITAGLIPTIN. MEDICATIONS: 1. Iron t.i.d. 2. Finasteride 5 mg daily. 3. Toprol-XL 12.5 mg b.i.d. 4. Lipitor 40 mg daily. 5. Flomax 0.4 mg daily. 6. Levemir 18 units subcutaneous every night. 7. Lasix 40 mg b.i.d. 8. Magnesium 500 mg daily. 9. Potassium 20 mEq b.i.d. 10. Folic acid 1 mg daily. 11. Metolazone 2.5 mg every other day. 12. Aspirin 81 mg daily. 13. Claritin 10 mg daily. 14. Coenzyme Q10 at 100 mg daily. 15. Eliquis 2.5 mg b.i.d. FAMILY HISTORY: Denies premature coronary artery disease or sudden cardiac within the family. SOCIAL HISTORY: The patient previously smoked but quit a long time ago. He denies alcohol or drug abuse. REVIEW OF SYSTEMS: Fourteen systems were reviewed including osteopathic. Pertinent positives and negatives above, otherwise negative. PHYSICAL EXAMINATION: VITAL SIGNS: Temperature 98.3, heart rate 84, blood pressure 144/64, respirations 20, pulse oximetry 98% on room air. GENERAL: The patient is in no acute distress. HEENT: Extraocular muscles are intact. He has right periorbital hematoma and ecchymosis. Pupils are equal and round and reactive. Right nostril has a Rhino Rocket in place. Mucous membranes moist. NECK: Supple. No JVD at 45 degrees. No carotid bruits heard bilaterally. HEART: Irregularly irregular. Positive first and second heart sounds. LUNGS: Clear to auscultation bilaterally. No wheezes, rales or rhonchi. ABDOMEN: Soft, nontender, nondistended. No organomegaly noted. EXTREMITIES: Show no clubbing or cyanosis. There is 1+ pitting edema bilaterally. NEUROLOGIC: No focal deficits noted. SKIN: Warm, dry and intact. OSTEOPATHIC: No kyphoscoliosis or lordosis. LABORATORY DATA: Hemoglobin 7.3, hematocrit 21.9, platelets 93. Potassium 3.3, BUN 53, creatinine 1.94. Electrocardiogram (02/04/2018 at 2124): Atrial fibrillation with controlled ventricular response, nonspecific ST and T-wave changes. No significant change from previous. IMPRESSION: 1. Syncopal episode. 2. Right temporoparietal subarachnoid hemorrhage and focal left frontal intraparenchymal hemorrhage due to trauma. 3. Traumatic brain injury with loss of consciousness. 4. Anticoagulation with Eliquis. 5. Atrial fibrillation, on chronic anticoagulation with Eliquis. 6. History of aortic stenosis, status post transfemoral Mckeon Mariela S3 26 mm transcatheter aortic valve replacement (08/2017). 7. Loop recorder showing a 5-second pause as well as 2 bradycardic episodes on 02/04/2018 which may have led to the patient's collapse. RECOMMENDATIONS: 1. In evaluation of his loop recorder, it appears that he has had a 5-second pause as well as 2 bradycardic episodes. This will have to be discussed further with the as to the time that the patient collapsed. For now, we will hold his beta saad and have to discuss further with EP Cardiology for consideration of a pacemaker, as he is on minimal beta saad therapy. Overall, he would most likely benefit from continuing on a beta saad if possible. 2. Due to his subarachnoid and intraparenchymal hemorrhage, his aspirin and Eliquis will be held. We will rely on neurosurgery to give us a better idea if at least aspirin could be restarted before discharge. 3. We will plan to check a 2-D echo to reevaluate his TAVR valve. 4. Further recommendations will be made based on the hospital course. Thank you for allowing me to see Kim Miller. If there are any questions, please do not hesitate to call. DO TANIA Harper/TRISH , 12:20 AM , 01:14 AM RONNELL
[2018-02-07] MEDS: Chlorhexidine Gluconate 2% 1 Pack (2 Cloths) TOPICAL SCH (07:00)
[2018-02-07] MEDS: Insulin NovoLOG Aspart Correctional Sugar Inj SQ SCH ×4 (08:40→20:15)
[2018-02-07] MEDS: Pantoprazole Inj 40 MG Vial IV.PUSH SCH (08:40)
[2018-02-07] MEDS: Senna/Docusate Sodium 8.6/50 MG Tablet PO SCH ×2 (08:41→20:15)
--- NOTE | 2018-02-07 09:10 | P.CONNEU ---
History of Present Illness Service: Neurology Primary Care Provider: UNKNOWN Family Provider: Edmund Bella Chief Complaint: Fall History of Present Illness: 87-year-old gentleman admitted for fall syncopal type episode. Is a 3 in total thus far. Over the past few months. Complicated past medical history including TAVR, coronary artery disease and renal insufficiency. States he felt lightheaded weak passed out. No involuntary movements no focal weakness or visual loss. CT brain demonstrated intracranial hemorrhage including left frontal. He is on blood thinners which have been discontinued. No history of seizure. Feels well complains of very mild headache no visual loss or focal weakness conversant slept well overnight. Review of Systems All other systems reviewed negative except as stated in HPI [facility] - History History Provided By: Patient, Family Member - Medical History Medical History: Medical History (Last Reviewed 02/06/18 @ 13:32 by Jin Negron) Afib COPD (chronic obstructive pulmonary disease) Diabetes GERD (gastroesophageal reflux disease) Hx of Moh's micrographic surgery for skin cancer Hx of malignant neuroendocrine tumor Hypertension Stroke - Surgical History Surgical History: Surgical History (Last Reviewed 02/06/18 @ 13:32 by Jin Negron) H/O cataract removal with insertion of prosthetic lens H/O resection of small bowel History of cholecystectomy History of cholecystectomy History of loop recorder History of tonsillectomy Hx of colonoscopy S/p TAVR (transcatheter aortic valve replacement), bioprosthetic - Family History Family History: Family History (Last Updated 02/05/18 @ 11:05 by ALVA Hannon) Other Kidney disease Patient's father is Patient's mother is Stroke - Tobacco History Second Hand Smoke Exposure: No Tobacco Use In Past 30 Days: No Smoking Status: Former smoker Years Smoked: 17 - Alcohol History How Often Do You Have a Drink Containing Alcohol: Never - Substance Use History Substance History: No History of Abuse - Travel History Recent Travel in the [place] Within the Last 8 Weeks: No Recent Travel Out of the Country Within the Last 8 Weeks: No - Immunization History Tetanus Immunization: <5 Years Hx Influenza Vaccine This Season: No Medications and Allergies Active Medications: Active Medications Al Hydroxide/Mg Hydroxide (Milk Of Magnesia Liq) 30 ml PO Q12H PRN PRN Reason: Mild Constipation Last Admin: 02/06/18 22:06 Dose: 30 ml Albuterol (Albuterol Neb (Prn)) 2.5 mg NEB Q2HR NEB PRN PRN Reason: SHORTNESS OF BREATH/WHEEZING Bisacodyl (Dulcolax Supp) 10 mg RECTAL DAILY PRN PRN Reason: SEVERE CONSITIPATION Chlorhexidine Gluconate (Chlorhexidine 2% Cloth) 3 pack TOPICAL DAILY@0400 RAMÍREZ Stop: 02/10/18 03:59 Last Admin: 02/07/18 07:00 Dose: 3 pack Chlorhexidine Gluconate (Chlorhexidine 2% Cloth) 3 pack TOPICAL DAILY@0400 PRN PRN Reason: Extra cloth needed Stop: 02/10/18 03:59 Dextrose (D50w Vial) 50 ml IV.PUSH UNSCH PRN PRN Reason: PER HYPOGLYCEMIA PROTOCOL Glucagon (Glucagon Inj) 1 mg OTHER UNSCH PRN PRN Reason: for Hypoglycemia Protocol Nicardipine HCl 25 mg/ Sodium (Chloride) 250 mls @ 50 mls/hr IV.CONT TITRATE PRN; Protocol PRN Reason: Per Protocol Insulin Aspart (Novolog Insulin Correctional Sugar Inj) 0 unit SQ ACHS RAMÍREZ; Protocol Last Admin: 02/07/18 08:40 Dose: 2 unit Lactulose (Lactulose Liq) 30 ml PO DAILY PRN PRN Reason: SEVERE CONSITIPATION Ondansetron HCl (Zofran Odt) 4 mg PO Q6H PRN PRN Reason: NAUSEA OR VOMITING Last Admin: 02/05/18 00:28 Dose: 4 mg Oxymetazoline HCl (Afrin 0.05% Nasal [place]) 2 spray NASAL Q12H PRN PRN Reason: epistaxis Last Admin: 02/05/18 21:37 Dose: 2 spray Pantoprazole Sodium (Protonix Inj) 40 mg IV.PUSH DAILY [facility] Last Admin: 02/07/18 08:40 Dose: 40 mg Senna/Docusate Sodium (Ora-Colace) 1 tab PO BID [facility] Last Admin: 02/07/18 08:41 Dose: 1 tab Sennosides (Senokot) 17.2 mg PO Q12H PRN PRN Reason: Moderate Constipation Last Admin: 02/06/18 22:06 Dose: 17.2 mg Sodium Chloride (Ns Flush) 2 ml IV.FLUSH BID [facility] Last Admin: 02/07/18 08:41 Dose: 2 ml Sodium Chloride (Ns Flush) 2 ml IV.FLUSH PRN PRN PRN Reason: FLUSH AFTER USING IV ACCESS Allergies Allergy/AdvReac Type Severity Reaction Status Date / Time niacin Allergy Unknown Nausea/Vomi Verified 02/04/18 21:42 ting sitagliptin AdvReac Severe STOMACH Verified 02/04/18 21:42 PAIN Home Medications Medication Instructions Recorded Confirmed Type apixaban [Eliquis] 2.5 mg PO BID 02/04/18 02/04/18 History aspirin 81 mg PO DAILY 02/04/18 02/04/18 History atorvastatin 40 mg PO DAILY 02/04/18 02/04/18 History cholecalciferol (vitamin D3) 1,000 unit PO DAILY 02/04/18 02/04/18 History [Vitamin D3] coenzyme Q10 [Co Q-10] 100 mg PO DAILY 02/04/18 02/04/18 History ferrous gluconate 2 mg/kg PO TID 02/04/18 02/04/18 History finasteride 5 mg PO DAILY 02/04/18 02/04/18 History folic acid 1 mg PO DAILY 02/04/18 02/04/18 History furosemide 40 mg PO BID 02/04/18 02/04/18 History insulin detemir U-100 [Levemir 18 unit SUB-Q QPM 02/04/18 02/04/18 History U-100 Insulin] loratadine [Claritin] 10 mg PO DAILY 02/04/18 02/04/18 History magnesium 500 mg PO DAILY 02/04/18 02/04/18 History metolazone 2.5 mg PO Q OTHER DAY 02/04/18 02/04/18 History metoprolol succinate [Toprol XL] 12.5 mg PO BID 02/04/18 02/04/18 History polyethylene glycol 3350 [Miralax] 17 g PO DAILY PRN 02/04/18 02/04/18 History potassium chloride 20 meq PO BID 02/04/18 02/04/18 History pyridoxine (vitamin B6) [Vitamin 100 mg PO DAILY 02/04/18 02/04/18 History B-6] tamsulosin 0.4 mg PO DAILY 02/04/18 02/04/18 History Exam Vital signs: Vital Signs 02/06/18 10:00 02/06/18 12:00 02/06/18 14:00 Temperature 98.4 F Pulse Rate 88 71 70 Respiratory Rate 20 Blood Pressure 147/65 H Pulse Oximetry 98 02/06/18 16:00 02/06/18 18:00 02/06/18 19:44 Temperature 98.3 F Pulse Rate 84 81 Respiratory Rate 20 Blood Pressure 144/64 H Pulse Oximetry 98 93 L 02/06/18 20:00 02/06/18 22:00 02/07/18 00:00 Temperature 98.0 F 99.9 F H Pulse Rate 83 82 91 H Respiratory Rate 23 20 Blood Pressure 135/67 128/59 L Pulse Oximetry 02/07/18 02:00 02/07/18 04:00 02/07/18 06:00 Temperature 99.7 F H Pulse Rate 88 90 83 Respiratory Rate 25 H Blood Pressure 134/62 Pulse Oximetry Intake & Output 02/06/18 02/07/18 02/07/18 18:59 06:59 18:59 Intake Total 1200 / 1200 1200 / 1200 Output Total 800 / 800 800 / 800 Balance 400 / 400 400 / 400 Weight 89.7 kg Intake: Oral 1200 / 1200 1200 / 1200 Output: Urine 800 / 800 800 / 800 Other: Date of Last Bowel Movement 02/05/18 # Bowel Movements 0 0 - Constitutional no acute distress - Routine HEENT Exam Head: Present: normocephalic Eye: Present: EOMI - Routine Neck Exam Present: supple, full ROM - Routine Abdominal Exam Present: soft - Routine Neurological Exam Awake alert oriented 3 pleasant articulate mild right facial bruising extraocular movements intact visual smith full OU surgical cataract extraction changes appreciated with sluggishly reactive pupils, face symmetric no pronator drift able raise extremity gravity for at least 10 seconds no dysmetria slightly reduced fine finger movements on the right compared to left gait not assessed secondary fall risk no neglect plantarflex her no clonus Results - Labs CBC & Chem 7: 02/06/18 05:09 02/06/18 05:09 Labs: Laboratory Results - last 24 hr 02/06/18 02/06/18 02/07/18 20:07 21:40 08:30 POC Glucose 175 H 170 H Urine Color Yellow Urine Clarity Clear Urine pH 5.0 Ur Specific [place] 1.013 Urine Protein Negative Urine Glucose (UA) Negative Urine Ketones Negative Urine Occult Blood Negative Urine Nitrate Negative Urine Bilirubin Negative Urine Urobilinogen Less than 2 Ur Leukocyte Esterase Negative Urine RBC 1 Urine WBC 1 Review/Management - Diagnosis (1) Subarachnoid bleed Code(s): I60.9 - Nontraumatic subarachnoid hemorrhage, unspecified Status: Acute Current Visit: Yes (2) CKD (chronic kidney disease) stage 4, GFR 15-29 ml/min Code(s): N18.4 - Chronic kidney disease, stage 4 (severe) Status: Acute Current Visit: Yes (3) Fall Code(s): W19.XXXA - Unspecified fall, initial encounter Status: Acute Current Visit: Yes (4) Scalp hematoma Code(s): S00.03XA - Contusion of scalp, initial encounter Status: Acute Current Visit: Yes (5) H/O stroke within last year Code(s): Z86.73 - Personal history of transient ischemic attack (TIA), and cerebral infarction without residual deficits Status: Acute Current Visit: Yes (6) TBI (traumatic brain injury) Code(s): S06.9X9A - Unspecified intracranial injury with loss of consciousness of unspecified duration, initial encounter Status: Acute Current Visit: Yes - Review/Management Plan: Recurrent syncopal episodes Suspect related orthostatic hypotension, possible arrhythmia in the setting of anemia and underlying cardiovascular disease May be more prone to syncope with history of left carotid occlusion as well Recommendations EEG Orthostatics Cardiology evaluation to evaluate the loop recorder and exclude an arrhythmia PT Okay for floor with telemetry when cleared by neurosurgery and critical care
--- NOTE | 2018-02-07 10:46 | P.PNNS ---
Subjective Interval history: Patient opens eyes. Pupils 3 mm bilaterally. Patient answers questions well. He denies any headaches, nausea, vomiting, or chest pain. He states he has chronic shortness of breath. <Sedrick Hameed - Last Filed: 02/07/18 10:34> Physical Exam Vital signs: Vital Signs 02/06/18 12:00 02/06/18 14:00 02/06/18 16:00 Temperature 98.4 F 98.3 F Pulse Rate 71 70 84 Respiratory Rate 20 20 Blood Pressure 147/65 H 144/64 H Pulse Oximetry 98 98 02/06/18 18:00 02/06/18 19:44 02/06/18 20:00 Temperature 98.0 F Pulse Rate 81 83 Respiratory Rate 23 Blood Pressure 135/67 Pulse Oximetry 93 L 02/06/18 22:00 02/07/18 00:00 02/07/18 02:00 Temperature 99.9 F H Pulse Rate 82 91 H 88 Respiratory Rate 20 Blood Pressure 128/59 L Pulse Oximetry 02/07/18 04:00 02/07/18 06:00 02/07/18 09:00 Temperature 99.7 F H Pulse Rate 90 83 Respiratory Rate 25 H Blood Pressure 134/62 Pulse Oximetry 94 L Intake & Output 02/06/18 02/07/18 02/07/18 18:59 06:59 18:59 Intake Total 1200 / 1200 1200 / 1200 Output Total 800 / 800 800 / 800 Balance 400 / 400 400 / 400 Weight 89.7 kg Intake: Oral 1200 / 1200 1200 / 1200 Output: Urine 800 / 800 800 / 800 Other: Date of Last Bowel Movement 02/05/18 # Bowel Movements 0 0 - Constitutional no acute distress, average body habitus - Routine HEENT Exam Head: Absent: atraumatic (extensive ecchymosis right face and bilateral forearms.) Eye: Present: PERRL (Pupils 3mm bilaterally reactive bilaterally.). Absent: conjunctival icterus - Routine Respiratory Exam Present: CTA bilaterally. Absent: respiratory distress, rhonchi, wheezes - Routine Cardiovascular Exam Present: S1, S2, irregular rhythm, irregularly irregular. Absent: murmur - Routine Abdominal Exam Present: soft, normoactive bowel sounds. Absent: tenderness, distended - Routine Extremities Exam Absent: cyanosis - Routine Skin Exam Present: ecchymosis (right side of face and bilateral forearms. SCDs in place.) . Absent: cyanosis, erythema - Routine Neurological Exam Present: alert, oriented X3, altered mental status (mild.). 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.) - Detailed Neurological Exam: Coma Scale Eye Opening: Spontaneous Verbal Response: Oriented Motor Response: Obey commands Hair Coma Scale Total: 15 - Routine Psychiatric Exam Present: cooperative (Answers questions appropriately about his past medical history.) <Sedrick Hameed - Last Filed: 02/07/18 10:34> Vital signs: Vital Signs 02/06/18 14:00 02/06/18 16:00 02/06/18 18:00 Temperature 98.3 F Pulse Rate 70 84 81 Respiratory Rate 20 Blood Pressure 144/64 H Pulse Oximetry 98 02/06/18 19:44 02/06/18 20:00 02/06/18 22:00 Temperature 98.0 F Pulse Rate 83 82 Respiratory Rate 23 Blood Pressure 135/67 Pulse Oximetry 93 L 02/07/18 00:00 02/07/18 02:00 02/07/18 04:00 Temperature 99.9 F H 99.7 F H Pulse Rate 91 H 88 90 Respiratory Rate 20 25 H Blood Pressure 128/59 L 134/62 Pulse Oximetry 02/07/18 06:00 02/07/18 08:00 02/07/18 09:00 Temperature 98.1 F Pulse Rate 83 76 Respiratory Rate 19 Blood Pressure 145/69 H Pulse Oximetry 90 L 94 L 02/07/18 10:00 02/07/18 12:00 Temperature Pulse Rate 80 86 Respiratory Rate Blood Pressure Pulse Oximetry Intake & Output 02/06/18 02/07/18 02/07/18 18:59 06:59 18:59 Intake Total 1200 / 1200 1200 / 1200 Output Total 800 / 800 800 / 800 Balance 400 / 400 400 / 400 Weight 89.7 kg Intake: Oral 1200 / 1200 1200 / 1200 Output: Urine 800 / 800 800 / 800 Other: Date of Last Bowel Movement 02/05/18 # Bowel Movements 0 0 <Jose Armando Verdin - Last Filed: 02/07/18 13:30> Assessment and Plan - Assessment (1) Subarachnoid bleed Code(s): I60.9 - Nontraumatic subarachnoid hemorrhage, unspecified Status: Acute (2) CKD (chronic kidney disease) stage 4, GFR 15-29 ml/min Code(s): N18.4 - Chronic kidney disease, stage 4 (severe) Status: Acute (3) Fall Code(s): W19.XXXA - Unspecified fall, initial encounter Status: Acute (4) Scalp hematoma Code(s): S00.03XA - Contusion of scalp, initial encounter Status: Acute (5) H/O stroke within last year Code(s): Z86.73 - Personal history of transient ischemic attack (TIA), and cerebral infarction without residual deficits Status: Acute (6) TBI (traumatic brain injury) Code(s): S06.9X9A - Unspecified intracranial injury with loss of consciousness of unspecified duration, initial encounter Status: Acute (7) BPH (benign prostatic hyperplasia) Code(s): N40.0 - Benign prostatic hyperplasia without lower urinary tract symptoms Status: Chronic (8) Subconjunctival hemorrhage of right eye Code(s): H11.31 - Conjunctival hemorrhage, right eye Status: Acute - Plan I r Problem List (1) CKD (chronic kidney disease) stage 4, GFR 15-29 ml/min Code(s): N18.4 - Chronic kidney disease, stage 4 (severe) Status: Acute (2) Fall Code(s): W19.XXXA - Unspecified fall, initial encounter Status: Acute (3) Scalp hematoma Code(s): S00.03XA - Contusion of scalp, initial encounter Status: Acute (4) H/O stroke within last year Code(s): Z86.73 - Personal history of transient ischemic attack (TIA), and cerebral infarction without residual deficits Status: Acute (5) TBI (traumatic brain injury) Code(s): S06.9X9A - Unspecified intracranial injury with loss of consciousness of unspecified duration, initial encounter Status: Acute (6) BPH (benign prostatic hyperplasia) Code(s): N40.0 - Benign prostatic hyperplasia without lower urinary tract symptoms Status: Chronic (7) Subconjunctival hemorrhage of right eye Code(s): H11.31 - Conjunctival hemorrhage, right eye Status: Acute (8) H/O malignant neuroendocrine tumor Code(s): Z85.9 - Personal history of malignant neoplasm, unspecified Status: Resolved (9) Thrombocytopenia Code(s): D69.6 - Thrombocytopenia, unspecified Status: Chronic (10) Iron deficiency anemia Code(s): D50.9 - Iron deficiency anemia, unspecified Status: Chronic (11) S/P TAVR (transcatheter aortic valve replacement) Code(s): Z95.2 - Presence of prosthetic heart valve Status: Acute (12) Subarachnoid bleed Code(s): I60.9 - Nontraumatic subarachnoid hemorrhage, unspecified Status: Acute (13) Chronic anticoagulation Code(s): Z79.01 - senior living (current) use of 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 Status: Cervical Spine CT 02/04/18 21:19 CONCLUSION: 1. No evidence of compression deformity or spondylolisthesis. 2. Multilevel discogenic degenerative changes and facet joint hypertrophy. Chest X-Ray 02/04/18 21:19 CONCLUSION: Cardiomegaly and central bronchopulmonary markings indistinctness similar to prior. Face CT 02/04/18 21:19 CONCLUSION: 1. No facial bone fractures seen. 2. Opacified frontal ethmoid and maxillary sinuses with evidence of resorption of nasal and ethmoid septa suggests chronic process. There is, however, an air- fluid level in the right maxillary sinus. Head CT 02/04/18 21:19 CONCLUSION: 1. Evidence of closed head injury with subarachnoid hemorrhage extending from low to high convexity on the right side. There is also a focal parenchymal hemorrhage in the highest convexity left frontal region. 2. Large right parietal scalp hematoma without evidence of skull fracture. 3. Opacified frontal, ethmoid, and maxillary sinuses. Pelvis X-Ray 02/04/18 21:19 CONCLUSION: No gross bony abnormality seen. Abdomen/Bladder Ultrasound 02/05/18 00:00 CONCLUSION: 1. Echogenic kidneys consistent with medical renal disease. No evidence for obstructive uropathy. 2. Bilateral renal cysts with a dominant 7.2 cm cyst in the superior pole of the right kidney. 3. Small amount ascites. 4. Prominent prostate. Head MRI 02/05/18 00:00 CONCLUSION: 1. Traumatic brain injury which includes significant subarachnoid hemorrhage, parenchymal hemorrhage and small subdural hematoma involving the right temporal and occipital lobes. 2. Additional hemorrhage or identified in both frontal lobes and left temporal lobe. 3. Right frontal cephalohematoma 4. No evidence of significant mass effect, intra-axial edema or acute infarct. TBI with loss of consciousness R temporoparietal subarachnoid hemorrhage in left frontal intraparenchymal hemorrhage. Right scalp hematoma Fall CT maxillofacial is negative for acute fracture. Traumatic SAH. Recommend MRI brain Prior CTA 10/09/17 negative for vascular malformation or aneurysm (L carotid occlusion noted) Hypertension Cardene if needed to maintain SBP <150. Hold Eliquis, Give Kcentra as per below. Atrial fibrillation on chronic anti-coagulation with Eliquis History of aortic stenosis now status post TAVR 08/2017. Cardene as needed to maintain systolic blood pressure less than 150 Hold Eliquis and ASA due to ICH. Hold statin, metoprolol, lasix and metolazone for now. Consider resuming po meds if he passes speech swallow eval. GERD Protonix for stress ulcer prophylaxis and history of GERD. Acute hypokalemia Renal u/s, place lópez if e/o obstruction. Hold tamulosin, finasteride until able to take po. Has been on lasix and metolazone for edema. KCL 80 MEQ IV now and recheck. 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 Adan Cee as an outpatient for above, follow PET scans have shown no residual disease. REsume iron supplementation, B6, folic acid if passes swallow eval. Diabetes mellitus Hold detemir Monitor glucose AC/at bedtime and initiate medium dose insulin sliding scale as indicated Pulmonary: aggressive pulmonary toilette, nasotracheal suction, and breathing treatments with nebulizers. Daily PT and OT Renal: Continue to monitor closely urine output, BUN and creatinine ID continue to monitor for signs of infection Edin hose and SCD's for DVT prophylaxis Further recommendations will be provided depending on the patient's clinical evaluation and follow up studies. Caprini VTE Risk Assessment Caprini VTE Risk Assessment: Moderate/High Risk (score >= 2) VTE Pharmacological Exception Reason: Hemorrhage Caprini Risk Assessment Model: Point Value = 1 Point Value = 2 Point Value = 3 Point Value = 5 Age 41-60 Minor surgery BMI > 25 kg/m2 Swollen legs Varicose veins or History of unexplained or recurrent spontaneous Oral contraceptives or hormone replacement Sepsis (< 1 month) Serious lung disease, including pneumonia (< 1 month) Abnormal pulmonary function Acute myocardial infarction Congestive heart failure (< 1 month) History of inflammatory bowel disease Medical patient at bed rest Age 61-74 Arthroscopic surgery Major open surgery (> 45 min) Laparoscopic surgery (> 45 min) Malignancy Confined to bed (> 72 hours) Immobilizing plaster cast Central venous access Age >= 75 History of VTE Family history of VTE Factor V Leiden Prothrombin [id number] Lupus anticoagulant Anticardiolipin antibodies Elevated serum homocysteine Heparin-induced thrombocytopenia Other congenital or acquired thrombophilia Stroke (< 1 month) Elective arthroplasty Hip, pelvis, or leg fracture Acute spinal cord injury (< 1 month) Prophylaxis Regimen: Total Risk Factor Score Risk Level Prophylaxis Regimen 0-1 Low Early ambulation 2 Moderate Order ONE of the following: *Sequential Compression Device (SCD) *Heparin 5000 units SQ BID 3-4 Higher Order ONE of the following medications: *Heparin 5000 units SQ TID *Enoxaparin/Lovenox 40 mg SQ daily (WT < 150 kg, CrCl > 30 mL/min) *Enoxaparin/Lovenox 30 mg SQ daily (WT < 150 kg, CrCl > 10-29 mL/min) *Enoxaparin/Lovenox 30 mg SQ BID (WT < 150 kg, CrCl > 30 mL/min) AND/OR *Sequential Compression Device (SCD) 5 or more Highest Order ONE of the following medications: *Heparin 5000 units SQ TID (Preferred with Epidurals) *Enoxaparin/Lovenox 40 mg SQ daily (WT < 150 kg, CrCl > 30 mL/min) *Enoxaparin/Lovenox 30 mg SQ daily (WT < 150 kg, CrCl > 10-29 mL/min) *Enoxaparin/Lovenox 30 mg SQ BID (WT < 150 kg, CrCl > 30 mL/min) AND *Sequential Compression Device (SCD) Patient is critically ill with TBI including traumatic subarachnoid hemorrhage in need of urgent reversal anticoagulation to decrease chance of expansion of hemorrhage. Discussed plan with RN <Sedrick Hameed - Last Filed: 02/07/18 10:34> - Attending Attestation The exam, history, and the medical decision-making described in the above note were completed with the assistance of the mid-level provider. I reviewed and agree with the findings presented. I attest that I had a [id number] encounter with the patient on the same day, and personally performed and documented my assessment and findings in the medical record. <Jose Armando Verdin - Last Filed: 02/07/18 13:30>
--- NOTE | 2018-02-07 11:44 | P.PNCC ---
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 Reportedly he was watching TV and stood up to walk to the bathroom at about 20:10 and fell on a tile floor hitting the right side of his head. His reports brief loss of consciousness. No noted seizure activity. [facility] was called. Vomited x1 during transport. GCS was 14 on arrival. In the ED workup included CT brain which demonstrated R temporoparietal subarachnoid hemorrhage and focal L frontal intraparenchymal hemorrhage. The emergency department physician discussed with Dr. Montenegro who requested Eliquis reversal. Patient's states that he last took Eliquis at 18:00 on 02/04. Of note, patient had a fall and presented in September 2017 with R hemiparesis. He had been on warfarin and initial CT negative. 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 He was felt to have M2 segment stroke. He was not administered TPA due to multiple contraindications. On followup imaging, he was found to have L subarachnoid hemorrhage, small r subdural without shift. He was followed by neurology and neurosurgery; no surgical intervention. states he was discharged home with home therapy and was not noted to have residual weakness. SUBJ 02/05: Lying in bed, patient complains about epistaxis since he woke up an hour ago. His platelet count is 68. I have ordered 1 packed unit of platelets stat, also 1 unit of FFP stat for INR of 1.4. MRI of the brain had been ordered per Dr. Montenegro request. Neurosurgery consult is pending 02/06: Lying in bed no acute distress, epistaxis controlled, right nare has a Rhino Rocket in place. MRI brain yesterday showed subarachnoid hemorrhage, parenchymal hemorrhage and small subdural hematoma involving the right temporal and occipital lobes, also intraparenchymal blood involving frontal lobes and left temporal lobe. 02/07: Patient is more somnolent today lying in bed no discomfort but difficult to arouse. is at the bedside. But once woken up patient is oriented to person and place. Did not receive any sedation. CT of the brain stat ordered again to rule out increasing bleed. Pupils remain equal. Dr. Rush cardiology stated patient had 5 sec pause. He will get EP consult to evaluate for PPM Objective Vital Signs / I&O: Vital Signs 02/06/18 12:00 02/06/18 14:00 02/06/18 16:00 Temperature 98.4 F 98.3 F Pulse Rate 71 70 84 Respiratory Rate 20 20 Blood Pressure 147/65 H 144/64 H Pulse Oximetry 98 98 02/06/18 18:00 02/06/18 19:44 02/06/18 20:00 Temperature 98.0 F Pulse Rate 81 83 Respiratory Rate 23 Blood Pressure 135/67 Pulse Oximetry 93 L 02/06/18 22:00 02/07/18 00:00 02/07/18 02:00 Temperature 99.9 F H Pulse Rate 82 91 H 88 Respiratory Rate 20 Blood Pressure 128/59 L Pulse Oximetry 02/07/18 04:00 02/07/18 06:00 02/07/18 09:00 Temperature 99.7 F H Pulse Rate 90 83 Respiratory Rate 25 H Blood Pressure 134/62 Pulse Oximetry 94 L Intake & Output 02/06/18 02/07/18 02/07/18 18:59 06:59 18:59 Intake Total 1200 / 1200 1200 / 1200 Output Total 800 / 800 800 / 800 Balance 400 / 400 400 / 400 Weight 89.7 kg Intake: Oral 1200 / 1200 1200 / 1200 Output: Urine 800 / 800 800 / 800 Other: Date of Last Bowel Movement 02/05/18 # Bowel Movements 0 0 Result Diagrams: 02/06/18 05:09 02/06/18 05:09 Objective Remarks: GENERAL: Elderly male who is lying in bed very somnolent SKIN: Warm and dry. Gauze dressing in place over right forearm. HEAD: Normocephalic. Large scalp hematoma overlying R temporal region EYES: R periorbital hematoma, Pupils equal and round, 3 mm and reactive. Subconjunctival hemorrhage right lateral bulbar conjunctiva. ENT: Right nostril has Rhino Rocket in place. No septal hematoma. Mucous membranes pink and moist. NECK: Trachea midline. No JVD. No midline tenderness CARDIOVASCULAR: irregular. No murmurs rubs or gallops. RESPIRATORY: No accessory muscle use. Clear to auscultation. Breath sounds equal bilaterally. GASTROINTESTINAL: Abdomen soft, non-tender, nondistended. Healed vertical scar upper abdomen. MUSCULOSKELETAL: Extremities without clubbing, cyanosis. Edema 2+ bilateral lower extremities. NEUROLOGICAL: Patient is somnolent today but wakes up to sternal rub. Oriented to person, place. No pronator drift, no tremor. 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 Normal lower extremity strength. Assessment and Plan - Problem List (1) CKD (chronic kidney disease) stage 4, GFR 15-29 ml/min Code(s): N18.4 - Chronic kidney disease, stage 4 (severe) Status: Acute (2) Fall Code(s): W19.XXXA - Unspecified fall, initial encounter Status: Acute (3) Scalp hematoma Code(s): S00.03XA - Contusion of scalp, initial encounter Status: Acute (4) H/O stroke within last year Code(s): Z86.73 - Personal history of transient ischemic attack (TIA), and cerebral infarction without residual deficits Status: Acute (5) TBI (traumatic brain injury) Code(s): S06.9X9A - Unspecified intracranial injury with loss of consciousness of unspecified duration, initial encounter Status: Acute (6) BPH (benign prostatic hyperplasia) Code(s): N40.0 - Benign prostatic hyperplasia without lower urinary tract symptoms Status: Chronic (7) Subconjunctival hemorrhage of right eye Code(s): H11.31 - Conjunctival hemorrhage, right eye Status: Acute (8) H/O malignant neuroendocrine tumor Code(s): Z85.9 - Personal history of malignant neoplasm, unspecified Status: Resolved (9) Thrombocytopenia Code(s): D69.6 - Thrombocytopenia, unspecified Status: Chronic (10) Iron deficiency anemia Code(s): D50.9 - Iron deficiency anemia, unspecified Status: Chronic (11) S/P TAVR (transcatheter aortic valve replacement) Code(s): Z95.2 - Presence of prosthetic heart valve Status: Acute (12) Subarachnoid bleed Code(s): I60.9 - Nontraumatic subarachnoid hemorrhage, unspecified Status: Acute (13) Chronic anticoagulation Code(s): Z79.01 - detention (current) use of 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 Status: Chronic - Assessment and Plan Plan: NEURO: TBI with loss of consciousness, s/p fall Altered mental status R temporoparietal subarachnoid hemorrhage in left frontal intraparenchymal hemorrhage. Small subdural hematoma involving the right temporal and occipital lobes. Right scalp hematoma CT of the head stat to rule out worsening bleed Syncope could be cardiac, see CVS CT maxillofacial is negative for acute fracture. Acute epistaxis, now well controlled after Rhino Rocket and platelet transfusion MRI of the brain as above CT C-spinenegative for fracture CT brain 02/04 with traumatic SAH. Not currently candidate for CTA due to renal dysfunction. Prior CTA 10/09/17 negative for vascular malformation or aneurysm ( L carotid occlusion noted) Cardene if needed to maintain SBP <150. Keppra not currently indicated based on mild TBI by GCS criteria. Holding Eliquis, s/p Kcentra as per below. Neurosurgery Dr. Montenegro RESP: Prior history of tobacco abuse IS q 1 hour awake CV: Cardiac syncope ([address] Rush) HTN Atrial fibrillation on chronic anti-coagulation with Eliquis History of aortic stenosis now status post TAVR 08/2017. Appreciate cardiology consult by Dr. Rush Loop recorder showing a 5-second pause, and 2 bradycardic episodes on 2017. Pacemaker evaluation with EP Cardene as needed to maintain systolic blood pressure less than 150 Hold Eliquis and ASA due to ICH. Holding statin, metoprolol, lasix and metolazone for now. GI: GERD Protonix for stress ulcer prophylaxis and history of GERD. Speech therapy to evaluate swallow. Holding off on NGT insertion until epistaxis improves. Diet per speech recommendation FEN/RENAL: BPH s/p TUMT CKD stage IIIb-IV Acute hypokalemia states he has been referred to Dr. Kamila Jha but hasn't followed up yet. Nephro Dr. Parrish following here Renal u/s, place lópez if e/o obstruction. Holding tamulosin, finasteride until able to take po. Has been on Lasix and metolazone for edema. Holding IVF considering significant peripheral edema, mild pulm edema. Likely resume diuretics soon. 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 Adan Cee as an outpatient for above, follow PET scans have shown no residual disease. Resume iron supplementation, B6, folic acid if passes swallow eval. ENDO: Diabetes mellitus Hold detemir. Monitor glucose AC/at bedtime and initiate medium dose insulin sliding scale as indicated PROPH: SCDs for DVT prophylaxis. He has chronically been on Eliquis which is on hold but pharmacologic DVT prophylaxis is contraindicated due to subarachnoid hemorrhage. Protonix for stress ulcer prophylaxis ACCESS: Peripheral IV providing adequate access at this time Patient is critically ill with TBI including traumatic subarachnoid hemorrhage in need of urgent reversal anticoagulation to decrease chance of expansion of hemorrhage. Discussed with Dr. Montenegro and DEBURRER STRIP. Patient and updated at bedside Patient and his indicate that he is full code Patient is of advanced age and has undergone successful TAVR, however his subsequent course has been complicated by readmission for sepsis, ischemic stroke with fall and subsequent SAH and SDH, now additional fall and SAH. He has known left carotid occlusion and A fib which place him at risk for embolic stroke, though obviously with hemorrhage while on anticoagulation. He is at risk for further complication, Now with altered mentation, need CT head stat CCT 35
--- NOTE | 2018-02-07 12:07 | CT ---
EXAM DATE: 02/07/2018 12:01 PM EDT AGE/SEX: 87 years / Male INDICATIONS: F/U subarachnoid bleed. CLINICAL DATA: This is the patient's subsequent encounter. Patient reports that signs and symptoms h ave been present for 3 days and indicates a pain score of Nonresponsive. MEDICAL/SURGICAL HISTORY: Hypertension. Chronic obstructive pulmonary disease. A-fib, TAVR Cholec ystectomy. TAVR RADIATION DOSE: 47.14 CTDI (mGy) [place] [facility] [place]. . TECHNIQUE: CT of the head without contrast. Using automated exposure control and adjustment of the mA and/or kV according to patient size, radiation dose was kept as low as reasonably achievable to ob tain optimal diagnostic quality images. DICOM format image data is available electronically for revi ew and comparison. FINDINGS: Cerebrum: Bilateral subarachnoid hemorrhage greater on the right. There is also hemorrhage within th e ventricles. Ventricles are mildly prominent but not significantly dilated. The ventricles are nohemi l for age. No evidence of midline shift, mass lesion, or acute infarction. Posterior Fossa: The cerebellum and brainstem are intact. The 4th ventricle is midline. The cerebe llopontine angle is unremarkable. Extracranial: The visualized portion of the orbits is intact. Right-sided frontal soft tissue contus ion Skull: The calvaria is intact. No evidence of skull fracture. CONCLUSION: 1. Bilateral subarachnoid hemorrhage. 2. Intraventricular hemorrhage which is new from previous study. 3. No midline shift or mass effect. . Electronically signed by: Sedrick Johnson MD 02/07/2018 12:06 PM EDT
--- NOTE | 2018-02-07 12:13 | P.PNCA ---
Subjective Interval history: No events overnight More somnolent today Just finished EEG Physical Exam Vital signs: Vital Signs 02/06/18 14:00 02/06/18 16:00 02/06/18 18:00 Temperature 98.3 F Pulse Rate 70 84 81 Respiratory Rate 20 Blood Pressure 144/64 H Pulse Oximetry 98 02/06/18 19:44 02/06/18 20:00 02/06/18 22:00 Temperature 98.0 F Pulse Rate 83 82 Respiratory Rate 23 Blood Pressure 135/67 Pulse Oximetry 93 L 02/07/18 00:00 02/07/18 02:00 02/07/18 04:00 Temperature 99.9 F H 99.7 F H Pulse Rate 91 H 88 90 Respiratory Rate 20 25 H Blood Pressure 128/59 L 134/62 Pulse Oximetry 02/07/18 06:00 02/07/18 09:00 Temperature Pulse Rate 83 Respiratory Rate Blood Pressure Pulse Oximetry 94 L Intake & Output 02/06/18 02/07/18 02/07/18 18:59 06:59 18:59 Intake Total 1200 / 1200 1200 / 1200 Output Total 800 / 800 800 / 800 Balance 400 / 400 400 / 400 Weight 89.7 kg Intake: Oral 1200 / 1200 1200 / 1200 Output: Urine 800 / 800 800 / 800 Other: Date of Last Bowel Movement 02/05/18 # Bowel Movements 0 0 Narrative: GENERAL: NAD, more somnolent today SKIN: Warm and dry. HEAD: Atraumatic. Normocephalic. EYES: Pupils equal and round. Right orbital ecchymosis ENT: No nasal bleeding or discharge. Mucous membranes pink and moist. NECK: Trachea midline. No JVD. CARDIOVASCULAR: Irregularly irregular RESPIRATORY: No accessory muscle use. Clear to auscultation. Breath sounds equal bilaterally. GASTROINTESTINAL: Abdomen soft, non-tender, nondistended. Hepatic and splenic margins not palpable. MUSCULOSKELETAL: Extremities without clubbing, cyanosis, or edema. No obvious deformities. NEUROLOGICAL: Somnolent but arrousable No obvious cranial nerve deficits. Motor grossly within normal limits. Five out of 5 muscle strength in the arms and legs. Normal speech. PSYCHIATRIC: Appropriate mood and affect; insight and judgment normal. Assessment and Plan - Assessment (1) Syncope Code(s): R55 - Syncope and collapse Status: Acute (2) Sinus pause Code(s): I45.5 - Other specified heart block Status: Acute (3) Subarachnoid bleed Code(s): I60.9 - Nontraumatic subarachnoid hemorrhage, unspecified Status: Acute (4) Fall Code(s): W19.XXXA - Unspecified fall, initial encounter Status: Acute (5) Scalp hematoma Code(s): S00.03XA - Contusion of scalp, initial encounter Status: Acute (6) TBI (traumatic brain injury) Code(s): S06.9X9A - Unspecified intracranial injury with loss of consciousness of unspecified duration, initial encounter Status: Acute (7) Thrombocytopenia Code(s): D69.6 - Thrombocytopenia, unspecified Status: Chronic (8) S/P TAVR (transcatheter aortic valve replacement) Code(s): Z95.2 - Presence of prosthetic heart valve Status: Acute (9) Chronic anticoagulation Code(s): Z79.01 - 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 Status: Chronic (10) Atrial fibrillation Code(s): I48.91 - Unspecified atrial fibrillation Status: Acute - Plan 1) Syncope/Ventricular pause Loop recorder showing a 5 second pause with significant bradycardia which was at the time the said he collapsed He's on a low dose of Beta Oren therapy but this will be held He should be considered for pacemaker placement, will discuss with EP Cardio Doubt small dose of BB was the cause 2) Will reevaluate TAVR valve with echo, but will also need for decision of PPM vs ICD 3) Subarachnoid and intraparenchymal hemorrhage No anti-platelet/anti-coagulation Hopefully eventually he will be able to be placed back on ASA 81mg daily Discussed Condition With: Dr. Pringle Patient's
--- NOTE | 2018-02-07 12:26 | P.PNNP ---
Subjective Interval history: Patient is awake bruising on the right forehead Physical Exam Vital signs: Vital Signs 02/06/18 14:00 02/06/18 16:00 02/06/18 18:00 Temperature 98.3 F Pulse Rate 70 84 81 Respiratory Rate 20 Blood Pressure 144/64 H Pulse Oximetry 98 02/06/18 19:44 02/06/18 20:00 02/06/18 22:00 Temperature 98.0 F Pulse Rate 83 82 Respiratory Rate 23 Blood Pressure 135/67 Pulse Oximetry 93 L 02/07/18 00:00 02/07/18 02:00 02/07/18 04:00 Temperature 99.9 F H 99.7 F H Pulse Rate 91 H 88 90 Respiratory Rate 20 25 H Blood Pressure 128/59 L 134/62 Pulse Oximetry 02/07/18 06:00 02/07/18 09:00 Temperature Pulse Rate 83 Respiratory Rate Blood Pressure Pulse Oximetry 94 L Intake & Output 02/06/18 02/07/18 02/07/18 18:59 06:59 18:59 Intake Total 1200 / 1200 1200 / 1200 Output Total 800 / 800 800 / 800 Balance 400 / 400 400 / 400 Weight 89.7 kg Intake: Oral 1200 / 1200 1200 / 1200 Output: Urine 800 / 800 800 / 800 Other: Date of Last Bowel Movement 02/05/18 # Bowel Movements 0 0 - Constitutional no acute distress - Routine HEENT Exam Head: Present: hematoma - Routine Neck Exam Present: supple - Routine Respiratory Exam Present: CTA bilaterally - Routine Cardiovascular Exam Present: S1, S2, irregular rhythm - Routine Abdominal Exam Present: soft, normoactive bowel sounds - Routine Extremities Exam Present: full ROM Assessment and Plan - Assessment (1) Acute worsening of stage 3 chronic kidney disease Code(s): N18.3 - Chronic kidney disease, stage 3 (moderate) Status: Acute (2) Hypokalemia Code(s): E87.6 - Hypokalemia Status: Acute Plan: Continue to replace potassium (3) Fall Code(s): W19.XXXA - Unspecified fall, initial encounter Status: Acute (4) H/O stroke within last year Code(s): Z86.73 - Personal history of transient ischemic attack (TIA), and cerebral infarction without residual deficits Status: Acute - Plan Patient GFR improved to 33 creatinine down to 1.9 he is passing urine He may require pacemaker insertion History of syncope Dr. Parrish to follow on Friday
[2018-02-07 13:09] LABS: ABG Base Excess 9.4 mmol/L (-2-2); ABG PCO2 43 mmHg (38-42); ABG PO2 69 mmHg (61-120)
[2018-02-07] MEDS: Potassium Chloride 25 MEQ Effervescent Tablet PO SCH ×2 (13:34→20:14)
[2018-02-07 13:52] LABS: Hematocrit 22.7 % (39.0-51.0); Hemoglobin 7.4 gm/dL (13.0-17.0); Mean Corpuscular HGB Conc 32.7 % (32.0-36.0); Mean Corpuscular Hemoglobin 33.1 pg (27.0-34.0); Mean Corpuscular Volume 101.2 fL (80.0-100.0); Mean Platelet Volume 10.1 fL (7.0-11.0); Platelet Count 85 th/mm3 (150-450); Red Blood Count 2.24 mil/mm3 (4.50-5.90); Red Cell Distribution Width 16.3 % (11.6-17.2); White Blood Count 2.7 th/mm3 (4.0-11.0)
[2018-02-07 14:18] LABS: Alkaline Phosphatase 122 U/L (45-117); Total Protein 6.4 g/dL (6.4-8.2)
[2018-02-07 14:27] LABS: Alanine Aminotransferase 34 U/L (12-78); Anion Gap 8 meq/L (5-15); Aspartate Aminotransferase 76 U/L (15-37); Blood Urea Nitrogen 54 mg/dL (7-18); Calcium 8.6 mg/dL (8.5-10.1); Carbon Dioxide 29.6 meq/L (21.0-32.0); Chloride 103 meq/L (98-107); Glomerular Filtration Rate 32 mL/min (>89); Glucose,Random 136 mg/dL (74-106); Potassium 3.8 meq/L (3.5-5.1); Sodium 141 meq/L (136-145)
--- NOTE | 2018-02-07 14:58 | US ---
EXAM DATE: 02/07/2018 2:45 PM EDT AGE/SEX: 87 years / Male INDICATIONS: Amaurosis fugax. CLINICAL DATA: This is the patient's initial encounter. Patient reports that signs and symptoms have been present for 1 day and indicates a pain score of 0/10. MEDICAL/SURGICAL HISTORY: . Hypertension. Transient ischemic attack. Left carotid artery occl usion. Atrial fibrillation. COPD. Diabetes. GERD. Malignant endocrine tumor. Former smoker. . Cataract. Small bowel resection. Cholecystectomy. Tonsillectomy. Transcatheter aortic valve repla cement, bioprosthetic. Moh's micrographic surgery for skin cancer. [place] [facility] [place]. . VELOCITY PARAMETERS: ICA/CCA Ratio: Right 1.5 , Left 0 ICA: Right 143 cm/sec, Left 0 cm/sec CCA: Right 98 cm/sec, Left 38 cm/sec ECA: Right 65 cm/sec, Left 128 cm/sec Vertebral: Right 112 cm/sec antegrade, Left 56 cm/sec antegrade FINDINGS: Right Carotid: Moderate arteriosclerotic plaque is visualized.The waveforms are within normal limits . Left Carotid: No flow in the left internal carotid. Prior ultrasound carotid 10/09/2017 also demonstr ated occlusion left internal carotid artery. Other: None. CONCLUSION: 1. Right Internal Carotid Artery: Findings indicate <50% stenosis. 2. Left Internal Carotid Artery: Findings indicate undetectable blood flow suggesting total occlusio n. Electronically signed by: Matt Bhatti MD 02/07/2018 2:57 PM EDT
--- NOTE | 2018-02-07 16:35 | ECHRPT ---
Indication: CORONARY ATHEROSCLEROSIS CONCLUSIONS The left ventricular systolic function is mildly reduced with an estimated ejection fraction in the range of 45- 50%. Normal left ventricular size. Wall thickness is normal. Mild global hypokinesis Mild mitral annular calcification. [id number] mitral valve regurgitation. Status-post percutaneous aortic valve replacement. Trace alyssa-valvular aortic valve regurgitation. There is moderate tricuspid regurgitation. The estimated pulmonary arterial pressure is 51 mmHg. BP: / HR: Rhythm: Sinus MEASUREMENTS (Male / Female) Normal Values Technical Quality:Good 2D ECHO LV Diastolic Diameter PLAX 4.9 cm 4.2 - 5.9 / 3.9 - 5.3 cm LV Systolic Diameter PLAX 4.1 cm IVS Diastolic Thickness 1.0 cm 0.6 - 1.0 / 0.6 - 0.9 cm LVPW Diastolic Thickness 1.0 cm 0.6 - 1.0 / 0.6 - 0.9 cm LV Relative Wall Thickness 0.4 LVOT Diameter 2.0 cm LA Systolic Diameter LX 3.7 cm 3.0 - 4.0 / 2.7 - 3.8 cm M-MODE Aortic Root Diameter MM 2.1 cm AV Cusp Separation MM 1.7 cm DOPPLER AV Peak Velocity 239.3 cm/s AV Peak Gradient 22.9 mmHg AV Mean Gradient 12.3 mmHg AV Velocity Time Integral 44.7 cm AI Peak Velocity 224.0 cm/s AI Peak Gradient 20.1 mmHg AI Pressure Half Time 890.0 ms LVOT Peak Velocity 100.2 cm/s LVOT Peak Gradient 4.0 mmHg LVOT Velocity Time Integral 17.4 cm AV Area Cont Eq vti 1.2 cm AV Area Cont Eq pk 1.3 cm MV Area PHT 5.4 cm TR Peak Velocity 320.0 cm/s TR Peak Gradient 41.0 mmHg Right Atrial Pressure 10.0 mmHg Pulmonary Artery Systolic Pressu 51.0 mmHg Right Ventricular Systolic Press 51.0 mmHg PV Peak Velocity 73.3 cm/s PV Peak Gradient 2.1 mmHg FINDINGS LEFT VENTRICLE The left ventricular systolic function is mildly reduced with an estimated ejection fraction in the range of 45- 50%. Normal left ventricular size. Wall thickness is normal. Mild global hypokinesis RIGHT VENTRICLE Normal right ventricular size and systolic function. LEFT ATRIUM The left atrial size is normal. RIGHT ATRIUM The right atrial size is normal. ATRIAL SEPTUM Normal atrial septal thickness without atrial level shunting by limited color doppler interrogation. AORTA The aortic root and proximal ascending aorta are normal in size on limited imaging. MITRAL VALVE Structurally normal mitral valve. Mild mitral annular calcification. [id number] mitral valve regurgitation. AORTIC VALVE Status-post percutaneous aortic valve replacement. Trileaflet aortic valve. Trace alyssa-valvular aortic valve regurgitation. TRICUSPID VALVE Structurally normal tricuspid valve. There is moderate tricuspid regurgitation. The estimated pulmonary arterial pressure is 51 mmHg. PULMONARY VALVE No pulmonary valve regurgitation or stenosis. VESSELS The inferior vena cava is normal in size. PERICARDIUM No pericardial effusion. Dat Dee MD (Electronically Signed) Final Date:07 February 2018 16:35
--- NOTE | 2018-02-07 20:38 | MG ---
cc: Link Persaud MD, Mandeep MD EEG NUMBER [id number] INDICATION: Appearance of sleep state 2-3 Hz delta with slight beta activity 20-50 microvolts. Some spindle type of activity noted with posterior slowing. Reduced driving with photic stimulation. Single lead EKG showing sinus rhythm. EEG variability reactivity noted. INTERPRETATION: Mild encephalopathy in appearance, mainly a sleep state. Clinical correlation. MD PARTH Horowitz/ , 08:18 PM , 08:37 PM
[2018-02-08] MEDS: Chlorhexidine Gluconate 2% 1 Pack (2 Cloths) TOPICAL SCH (05:46)
[2018-02-08] MEDS: Pantoprazole Inj 40 MG Vial IV.PUSH SCH (09:09)
[2018-02-08] MEDS: Potassium Chloride 25 MEQ Effervescent Tablet PO SCH ×2 (09:10→21:52)
--- NOTE | 2018-02-08 09:33 | P.PNNEU ---
Subjective Subjective Comments: No acute events reported No headache No chest pain No dyspnea Active Medications: Active Medications Al Hydroxide/Mg Hydroxide (Milk Of Magnesia Liq) 30 ml PO Q12H PRN PRN Reason: Mild Constipation Last Admin: 02/07/18 20:14 Dose: 30 ml Albuterol (Albuterol Neb (Prn)) 2.5 mg NEB Q2HR NEB PRN PRN Reason: SHORTNESS OF BREATH/WHEEZING Bisacodyl (Dulcolax Supp) 10 mg RECTAL DAILY PRN PRN Reason: SEVERE CONSITIPATION Chlorhexidine Gluconate (Chlorhexidine 2% Cloth) 3 pack TOPICAL DAILY@0400 RAMÍREZ Stop: 02/10/18 03:59 Last Admin: 02/08/18 05:46 Dose: 3 pack Chlorhexidine Gluconate (Chlorhexidine 2% Cloth) 3 pack TOPICAL DAILY@0400 PRN PRN Reason: Extra cloth needed Stop: 02/10/18 03:59 Dextrose (D50w Vial) 50 ml IV.PUSH UNSCH PRN PRN Reason: PER HYPOGLYCEMIA PROTOCOL Glucagon (Glucagon Inj) 1 mg OTHER UNSCH PRN PRN Reason: for Hypoglycemia Protocol Nicardipine HCl 25 mg/ Sodium (Chloride) 250 mls @ 50 mls/hr IV.CONT TITRATE PRN; Protocol PRN Reason: Per Protocol Insulin Aspart (Novolog Insulin Correctional Sugar Inj) 0 unit SQ ACHS [facility]; Protocol Last Admin: 02/07/18 20:15 Dose: 4 unit Lactulose (Lactulose Liq) 30 ml PO DAILY PRN PRN Reason: SEVERE CONSITIPATION Last Admin: 02/07/18 20:14 Dose: 30 ml Ondansetron HCl (Zofran Odt) 4 mg PO Q6H PRN PRN Reason: NAUSEA OR VOMITING Last Admin: 02/05/18 00:28 Dose: 4 mg Oxymetazoline HCl (Afrin 0.05% Nasal [place]) 2 spray NASAL Q12H PRN PRN Reason: epistaxis Last Admin: 02/05/18 21:37 Dose: 2 spray Pantoprazole Sodium (Protonix Inj) 40 mg IV.PUSH DAILY RAMÍREZ Last Admin: 02/08/18 09:09 Dose: 40 mg Potassium Bicarb/Potassium Chloride (K-Lyte Cl Eff) 25 meq PO BID [facility] Last Admin: 02/08/18 09:10 Dose: 25 meq Senna/Docusate Sodium (Ora-Colace) 1 tab PO BID [facility] Last Admin: 02/07/18 20:15 Dose: 1 tab Sennosides (Senokot) 17.2 mg PO Q12H PRN PRN Reason: Moderate Constipation Last Admin: 02/07/18 20:14 Dose: 17.2 mg Sodium Chloride (Ns Flush) 2 ml IV.FLUSH BID [facility] Last Admin: 02/08/18 00:40 Dose: 2 ml Sodium Chloride (Ns Flush) 2 ml IV.FLUSH PRN PRN PRN Reason: FLUSH AFTER USING IV ACCESS Allergies/Adverse Reactions: Allergies Allergy/AdvReac Type Severity Reaction Status Date / Time niacin Allergy Unknown Nausea/Vomi Verified 02/04/18 21:42 ting sitagliptin AdvReac Severe STOMACH Verified 02/04/18 21:42 PAIN Review of Systems All other systems reviewed negative except as stated in HPI Physical Exam Vital signs: Vital Signs 02/07/18 10:00 02/07/18 12:00 02/07/18 14:00 Temperature 97.5 F L Pulse Rate 80 86 98 H Respiratory Rate 15 Blood Pressure 123/60 Pulse Oximetry 95 02/07/18 16:00 02/07/18 18:00 02/07/18 20:00 Temperature 98.1 F 98.9 F Pulse Rate 74 74 83 Respiratory Rate 28 H 24 Blood Pressure 124/58 L 134/62 Pulse Oximetry 97 02/07/18 20:51 02/07/18 22:00 02/08/18 00:00 Temperature 98.9 F Pulse Rate 79 83 Respiratory Rate 22 Blood Pressure 123/58 L Pulse Oximetry 95 02/08/18 02:00 02/08/18 04:00 02/08/18 07:31 Temperature 98.3 F Pulse Rate 83 79 Respiratory Rate Blood Pressure 127/60 Pulse Oximetry 95 Intake & Output 02/07/18 02/08/18 02/08/18 18:59 06:59 18:59 Intake Total 960 / 960 Output Total 550 / 550 Balance 410 / 410 Intake: Oral 960 / 960 Output: Urine 550 / 550 Other: Date of Last Bowel Movement 02/07/18 # Bowel Movements 0 Narrative: Ox 3, fluent SKIN: Warm and dry. HEAD: Atraumatic. Normocephalic. EYES: Pupils equal and round. Right orbital ecchymosis ENT: No nasal bleeding or discharge. Mucous membranes pink and moist. NECK: Trachea midline. No JVD. RESPIRATORY: No accessory muscle use. Clear to auscultation. Breath sounds equal bilaterally. GASTROINTESTINAL: Abdomen soft, non-tender, nondistended. Hepatic and splenic margins not palpable. MUSCULOSKELETAL: Extremities without clubbing, cyanosis, or edema. No obvious deformities. PSYCHIATRIC: Appropriate mood and affect; insight and judgment normal. - Constitutional no acute distress - Routine HEENT Exam Head: Present: normocephalic Eye: Present: EOMI ENT: Present: mucous membranes moist - Routine Neck Exam Present: supple, full ROM - Routine Abdominal Exam Present: soft Objective Laboratory Results - last 24 hr 02/07/18 02/07/18 02/07/18 12:26 13:00 13:00 WBC 2.7 L RBC 2.24 L Hgb 7.4 L Hct 22.7 L MCV 101.2 H MCH 33.1 MCHC 32.7 RDW 16.3 Plt Count 85 L MPV 10.1 Puncture Site Patient Temperature O2 Saturation ABG pH ABG pCO2 ABG pO2 ABG HCO3 ABG O2 Content ABG Base Excess ABG Methemoglobin Eduardo Test Hemoglobin Carboxyhemoglobin Inspired O2 Critical Value Sodium 141 Potassium 3.8 Chloride 103 Carbon Dioxide 29.6 Anion Gap 8 BUN 54 H Creatinine 1.99 H Estimated GFR 32 L POC Glucose 143 H Random Glucose 136 H Calcium 8.6 Total Bilirubin 1.3 H AST 76 H ALT 34 Alkaline Phosphatase 122 H Total Protein 6.4 Albumin 3.0 L 02/07/18 02/07/18 02/07/18 13:00 17:21 19:48 WBC RBC Hgb Hct MCV MCH MCHC RDW Plt Count MPV Puncture Site Right radial Patient Temperature 98.6 O2 Saturation 92 ABG pH 7.50 H ABG pCO2 43 H ABG pO2 69 ABG HCO3 33 H ABG O2 Content 9.3 L ABG Base Excess 9.4 H ABG Methemoglobin 0.9 Eduardo Test Present Hemoglobin 7.2 L Carboxyhemoglobin 2.3 Inspired O2 21 Critical Value No Sodium Potassium Chloride Carbon Dioxide Anion Gap BUN Creatinine Estimated GFR POC Glucose 188 H 211 H Random Glucose Calcium Total Bilirubin AST ALT Alkaline Phosphatase Total Protein Albumin Review/Management - Diagnosis (1) Subarachnoid bleed Code(s): I60.9 - Nontraumatic subarachnoid hemorrhage, unspecified Status: Acute Current Visit: Yes (2) CKD (chronic kidney disease) stage 4, GFR 15-29 ml/min Code(s): N18.4 - Chronic kidney disease, stage 4 (severe) Status: Acute Current Visit: Yes (3) Fall Code(s): W19.XXXA - Unspecified fall, initial encounter Status: Acute Current Visit: Yes (4) Scalp hematoma Code(s): S00.03XA - Contusion of scalp, initial encounter Status: Acute Current Visit: Yes (5) H/O stroke within last year Code(s): Z86.73 - Personal history of transient ischemic attack (TIA), and cerebral infarction without residual deficits Status: Acute Current Visit: Yes (6) TBI (traumatic brain injury) Code(s): S06.9X9A - Unspecified intracranial injury with loss of consciousness of unspecified duration, initial encounter Status: Acute Current Visit: Yes - Review/Management Plan: Recurrent syncopal episodes Suspect related orthostatic hypotension, possible arrhythmia in the setting of anemia and underlying cardiovascular disease May be more prone to syncope with history of left carotid occlusion as well Recommendations Seen by cardiology consideration for possible pacemaker, EP evaluation Neuro stable PT Okay for floor with telemetry when cleared by neurosurgery and critical care
--- NOTE | 2018-02-08 10:15 | P.PNNS ---
Subjective Interval history: Pt awake and alert. Denies any headache. No nausea or vomiting. He states he has some right sided rib soreness. <Sedrick Hameed - Last Filed: 02/08/18 10:16> Physical Exam Vital signs: Vital Signs 02/07/18 12:00 02/07/18 14:00 02/07/18 16:00 Temperature 97.5 F L 98.1 F Pulse Rate 86 98 H 74 Respiratory Rate 15 28 H Blood Pressure 123/60 124/58 L Pulse Oximetry 95 97 02/07/18 18:00 02/07/18 20:00 02/07/18 20:51 Temperature 98.9 F Pulse Rate 74 83 Respiratory Rate 24 Blood Pressure 134/62 Pulse Oximetry 95 02/07/18 22:00 02/08/18 00:00 02/08/18 02:00 Temperature 98.9 F Pulse Rate 79 83 83 Respiratory Rate 22 Blood Pressure 123/58 L Pulse Oximetry 02/08/18 04:00 02/08/18 07:31 Temperature 98.3 F Pulse Rate 79 Respiratory Rate Blood Pressure 127/60 Pulse Oximetry 95 Intake & Output 02/07/18 02/08/18 02/08/18 18:59 06:59 18:59 Intake Total 960 / 960 Output Total 550 / 550 Balance 410 / 410 Intake: Oral 960 / 960 Output: Urine 550 / 550 Other: Date of Last Bowel Movement 02/07/18 # Bowel Movements 0 - Constitutional no acute distress, average body habitus, cooperative - Routine HEENT Exam Head: Absent: normocephalic, atraumatic (Pt with extensive ecchymosis right side of face) Eye: Present: PERRL (Pupils 3mm bilaterally. Reactive bilaterally.). Absent: conjunctival icterus ENT: Present: oropharynx clear - Routine Respiratory Exam Present: CTA bilaterally. Absent: respiratory distress, rhonchi, wheezes - Routine Cardiovascular Exam Present: S1, S2, irregular rhythm. Absent: murmur - Routine Abdominal Exam Present: soft, normoactive bowel sounds. Absent: tenderness - Routine Extremities Exam Absent: cyanosis - Routine Skin Exam Present: ecchymosis (Right side of face and bilateral forearms.). Absent: cyanosis, erythema - Routine Neurological Exam Present: alert, oriented X3, moving all extremities, normal speech. Absent: sensory deficit, motor deficit - Routine Psychiatric Exam Present: normal affect, normal thought process, cooperative, good insight, good judgment <Sedrick Hameed - Last Filed: 02/08/18 10:16> Vital signs: Vital Signs 02/07/18 14:00 02/07/18 16:00 02/07/18 18:00 Temperature 98.1 F Pulse Rate 98 H 74 74 Respiratory Rate 28 H Blood Pressure 124/58 L Pulse Oximetry 97 02/07/18 20:00 02/07/18 20:51 02/07/18 22:00 Temperature 98.9 F Pulse Rate 83 79 Respiratory Rate 24 Blood Pressure 134/62 Pulse Oximetry 95 02/08/18 00:00 02/08/18 02:00 02/08/18 04:00 Temperature 98.9 F 98.3 F Pulse Rate 83 83 79 Respiratory Rate 22 Blood Pressure 123/58 L 127/60 Pulse Oximetry 02/08/18 07:31 Temperature Pulse Rate Respiratory Rate Blood Pressure Pulse Oximetry 95 Intake & Output 02/07/18 02/08/18 02/08/18 18:59 06:59 18:59 Intake Total 960 / 960 Output Total 550 / 550 Balance 410 / 410 Intake: Oral 960 / 960 Output: Urine 550 / 550 Other: Date of Last Bowel Movement 02/07/18 02/07/18 # Bowel Movements 0 <Jose Armando Verdin - Last Filed: 02/08/18 13:54> Assessment and Plan - Assessment (1) Subarachnoid bleed Code(s): I60.9 - Nontraumatic subarachnoid hemorrhage, unspecified Status: Acute (2) CKD (chronic kidney disease) stage 4, GFR 15-29 ml/min Code(s): N18.4 - Chronic kidney disease, stage 4 (severe) Status: Acute (3) Fall Code(s): W19.XXXA - Unspecified fall, initial encounter Status: Acute (4) Scalp hematoma Code(s): S00.03XA - Contusion of scalp, initial encounter Status: Acute (5) H/O stroke within last year Code(s): Z86.73 - Personal history of transient ischemic attack (TIA), and cerebral infarction without residual deficits Status: Acute (6) TBI (traumatic brain injury) Code(s): S06.9X9A - Unspecified intracranial injury with loss of consciousness of unspecified duration, initial encounter Status: Acute (7) BPH (benign prostatic hyperplasia) Code(s): N40.0 - Benign prostatic hyperplasia without lower urinary tract symptoms Status: Chronic (8) Subconjunctival hemorrhage of right eye Code(s): H11.31 - Conjunctival hemorrhage, right eye Status: Acute - Plan I r Problem List (1) CKD (chronic kidney disease) stage 4, GFR 15-29 ml/min Code(s): N18.4 - Chronic kidney disease, stage 4 (severe) Status: Acute (2) Fall Code(s): W19.XXXA - Unspecified fall, initial encounter Status: Acute (3) Scalp hematoma Code(s): S00.03XA - Contusion of scalp, initial encounter Status: Acute (4) H/O stroke within last year Code(s): Z86.73 - Personal history of transient ischemic attack (TIA), and cerebral infarction without residual deficits Status: Acute (5) TBI (traumatic brain injury) Code(s): S06.9X9A - Unspecified intracranial injury with loss of consciousness of unspecified duration, initial encounter Status: Acute (6) BPH (benign prostatic hyperplasia) Code(s): N40.0 - Benign prostatic hyperplasia without lower urinary tract symptoms Status: Chronic (7) Subconjunctival hemorrhage of right eye Code(s): H11.31 - Conjunctival hemorrhage, right eye Status: Acute (8) H/O malignant neuroendocrine tumor Code(s): Z85.9 - Personal history of malignant neoplasm, unspecified Status: Resolved (9) Thrombocytopenia Code(s): D69.6 - Thrombocytopenia, unspecified Status: Chronic (10) Iron deficiency anemia Code(s): D50.9 - Iron deficiency anemia, unspecified Status: Chronic (11) S/P TAVR (transcatheter aortic valve replacement) Code(s): Z95.2 - Presence of prosthetic heart valve Status: Acute (12) Subarachnoid bleed Code(s): I60.9 - Nontraumatic subarachnoid hemorrhage, unspecified Status: Acute (13) Chronic anticoagulation Code(s): Z79.01 - detention (current) use of 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 Status: Cervical Spine CT 02/04/18 21:19 CONCLUSION: 1. No evidence of compression deformity or spondylolisthesis. 2. Multilevel discogenic degenerative changes and facet joint hypertrophy. Chest X-Ray 02/04/18 21:19 CONCLUSION: Cardiomegaly and central bronchopulmonary markings indistinctness similar to prior. Face CT 02/04/18 21:19 CONCLUSION: 1. No facial bone fractures seen. 2. Opacified frontal ethmoid and maxillary sinuses with evidence of resorption of nasal and ethmoid septa suggests chronic process. There is, however, an air- fluid level in the right maxillary sinus. Head CT 02/04/18 21:19 CONCLUSION: 1. Evidence of closed head injury with subarachnoid hemorrhage extending from low to high convexity on the right side. There is also a focal parenchymal hemorrhage in the highest convexity left frontal region. 2. Large right parietal scalp hematoma without evidence of skull fracture. 3. Opacified frontal, ethmoid, and maxillary sinuses. Pelvis X-Ray 02/04/18 21:19 CONCLUSION: No gross bony abnormality seen. Abdomen/Bladder Ultrasound 02/05/18 00:00 CONCLUSION: 1. Echogenic kidneys consistent with medical renal disease. No evidence for obstructive uropathy. 2. Bilateral renal cysts with a dominant 7.2 cm cyst in the superior pole of the right kidney. 3. Small amount ascites. 4. Prominent prostate. Head MRI 02/05/18 00:00 CONCLUSION: 1. Traumatic brain injury which includes significant subarachnoid hemorrhage, parenchymal hemorrhage and small subdural hematoma involving the right temporal and occipital lobes. 2. Additional hemorrhage or identified in both frontal lobes and left temporal lobe. 3. Right frontal cephalohematoma 4. No evidence of significant mass effect, intra-axial edema or acute infarct. TBI with loss of consciousness R temporoparietal subarachnoid hemorrhage in left frontal intraparenchymal hemorrhage. Right scalp hematoma Fall CT maxillofacial is negative for acute fracture. Traumatic SAH. Recommend MRI brain Prior CTA 10/09/17 negative for vascular malformation or aneurysm (L carotid occlusion noted) Hypertension Cardene if needed to maintain SBP <150. Hold Eliquis, Give Kcentra as per below. Atrial fibrillation on chronic anti-coagulation with Eliquis History of aortic stenosis now status post TAVR 08/2017. Cardene as needed to maintain systolic blood pressure less than 150 Hold Eliquis and ASA due to ICH. Hold statin, metoprolol, lasix and metolazone for now. Consider resuming po meds if he passes speech swallow eval. GERD Protonix for stress ulcer prophylaxis and history of GERD. Acute hypokalemia Renal u/s, place lópez if e/o obstruction. Hold tamulosin, finasteride until able to take po. Has been on lasix and metolazone for edema. KCL 80 MEQ IV now and recheck. 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 Adan Cee as an outpatient for above, follow PET scans have shown no residual disease. REsume iron supplementation, B6, folic acid if passes swallow eval. Diabetes mellitus Hold detemir Monitor glucose AC/at bedtime and initiate medium dose insulin sliding scale as indicated Pulmonary: aggressive pulmonary toilette, nasotracheal suction, and breathing treatments with nebulizers. Daily PT and OT Renal: Continue to monitor closely urine output, BUN and creatinine ID continue to monitor for signs of infection Edin hose and SCD's for DVT prophylaxis Further recommendations will be provided depending on the patient's clinical evaluation and follow up studies. Caprini VTE Risk Assessment Caprini VTE Risk Assessment: Moderate/High Risk (score >= 2) VTE Pharmacological Exception Reason: Hemorrhage Caprini Risk Assessment Model: Point Value = 1 Point Value = 2 Point Value = 3 Point Value = 5 Age 41-60 Minor surgery BMI > 25 kg/m2 Swollen legs Varicose veins or History of unexplained or recurrent spontaneous Oral contraceptives or hormone replacement Sepsis (< 1 month) Serious lung disease, including pneumonia (< 1 month) Abnormal pulmonary function Acute myocardial infarction Congestive heart failure (< 1 month) History of inflammatory bowel disease Medical patient at bed rest Age 61-74 Arthroscopic surgery Major open surgery (> 45 min) Laparoscopic surgery (> 45 min) Malignancy Confined to bed (> 72 hours) Immobilizing plaster cast Central venous access Age >= 75 History of VTE Family history of VTE Factor V Leiden Prothrombin [id number] Lupus anticoagulant Anticardiolipin antibodies Elevated serum homocysteine Heparin-induced thrombocytopenia Other congenital or acquired thrombophilia Stroke (< 1 month) Elective arthroplasty Hip, pelvis, or leg fracture Acute spinal cord injury (< 1 month) Prophylaxis Regimen: Total Risk Factor Score Risk Level Prophylaxis Regimen 0-1 Low Early ambulation 2 Moderate Order ONE of the following: *Sequential Compression Device (SCD) *Heparin 5000 units SQ BID 3-4 Higher Order ONE of the following medications: *Heparin 5000 units SQ TID *Enoxaparin/Lovenox 40 mg SQ daily (WT < 150 kg, CrCl > 30 mL/min) *Enoxaparin/Lovenox 30 mg SQ daily (WT < 150 kg, CrCl > 10-29 mL/min) *Enoxaparin/Lovenox 30 mg SQ BID (WT < 150 kg, CrCl > 30 mL/min) AND/OR *Sequential Compression Device (SCD) 5 or more Highest Order ONE of the following medications: *Heparin 5000 units SQ TID (Preferred with Epidurals) *Enoxaparin/Lovenox 40 mg SQ daily (WT < 150 kg, CrCl > 30 mL/min) *Enoxaparin/Lovenox 30 mg SQ daily (WT < 150 kg, CrCl > 10-29 mL/min) *Enoxaparin/Lovenox 30 mg SQ BID (WT < 150 kg, CrCl > 30 mL/min) AND *Sequential Compression Device (SCD) Patient is critically ill with TBI including traumatic subarachnoid hemorrhage in need of urgent reversal anticoagulation to decrease chance of expansion of hemorrhage. Cardiology notes reviewed, recommends a pacemaker for his 5 second pause with bradycardia and syncope. Discussed plan with RN <Sedrick Hameed - Last Filed: 02/08/18 10:16> - Attending Attestation The exam, history, and the medical decision-making described in the above note were completed with the assistance of the mid-level provider. I reviewed and agree with the findings presented. I attest that I had a [id number] encounter with the patient on the same day, and personally performed and documented my assessment and findings in the medical record. Improved level of alertness and overall stable neurologically. Discussed with cardiology and they are planning on cardiac pacemaker placement for recurrent syncopal episode. Discussed with and answered all of her questions. <Jose Armando Verdin - Last Filed: 02/08/18 13:54>
--- NOTE | 2018-02-08 11:25 | P.PNCA ---
Subjective Interval history: Awake and alert, feels well Telemetry showing no arrhythmias/pauses Physical Exam Vital signs: Vital Signs 02/07/18 12:00 02/07/18 14:00 02/07/18 16:00 Temperature 97.5 F L 98.1 F Pulse Rate 86 98 H 74 Respiratory Rate 15 28 H Blood Pressure 123/60 124/58 L Pulse Oximetry 95 97 02/07/18 18:00 02/07/18 20:00 02/07/18 20:51 Temperature 98.9 F Pulse Rate 74 83 Respiratory Rate 24 Blood Pressure 134/62 Pulse Oximetry 95 02/07/18 22:00 02/08/18 00:00 02/08/18 02:00 Temperature 98.9 F Pulse Rate 79 83 83 Respiratory Rate 22 Blood Pressure 123/58 L Pulse Oximetry 02/08/18 04:00 02/08/18 07:31 Temperature 98.3 F Pulse Rate 79 Respiratory Rate Blood Pressure 127/60 Pulse Oximetry 95 Intake & Output 02/07/18 02/08/18 02/08/18 18:59 06:59 18:59 Intake Total 960 / 960 Output Total 550 / 550 Balance 410 / 410 Intake: Oral 960 / 960 Output: Urine 550 / 550 Other: Date of Last Bowel Movement 02/07/18 # Bowel Movements 0 Narrative: GENERAL: NAD, AAOx3 SKIN: Warm and dry. HEAD: Right periorbital/forehead ecchymosis EYES: Pupils equal and round. No scleral icterus. No injection or drainage. ENT: Rhino rocket in place. Mucous membranes pink and moist. NECK: Trachea midline. No JVD. CARDIOVASCULAR: Irregularly irregular RESPIRATORY: No accessory muscle use. Clear to auscultation. Breath sounds equal bilaterally. GASTROINTESTINAL: Abdomen soft, non-tender, nondistended. Hepatic and splenic margins not palpable. MUSCULOSKELETAL: Extremities without clubbing, cyanosis, or edema. No obvious deformities. NEUROLOGICAL: Awake and alert. No obvious cranial nerve deficits. Motor grossly within normal limits. Five out of 5 muscle strength in the arms and legs. Normal speech. PSYCHIATRIC: Appropriate mood and affect; insight and judgment normal. Assessment and Plan - Assessment (1) Syncope Code(s): R55 - Syncope and collapse Status: Acute (2) Sinus pause Code(s): I45.5 - Other specified heart block Status: Acute (3) Subarachnoid bleed Code(s): I60.9 - Nontraumatic subarachnoid hemorrhage, unspecified Status: Acute (4) Fall Code(s): W19.XXXA - Unspecified fall, initial encounter Status: Acute (5) Scalp hematoma Code(s): S00.03XA - Contusion of scalp, initial encounter Status: Acute (6) TBI (traumatic brain injury) Code(s): S06.9X9A - Unspecified intracranial injury with loss of consciousness of unspecified duration, initial encounter Status: Acute (7) Thrombocytopenia Code(s): D69.6 - Thrombocytopenia, unspecified Status: Chronic (8) S/P TAVR (transcatheter aortic valve replacement) Code(s): Z95.2 - Presence of prosthetic heart valve Status: Acute (9) Chronic anticoagulation Code(s): Z79.01 - detention (current) use of 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 Status: Chronic (10) Atrial fibrillation Code(s): I48.91 - Unspecified atrial fibrillation Status: Acute - Plan 1) Syncope/Ventricular pause Loop recorder showing a 5 second pause with significant bradycardia afterwards which was at the time the said he collapsed He's on a low dose of Beta Oren therapy but this will be held He should be considered for pacemaker placement Doubt small dose of BB was the cause Discussed with Dr. Germain who agrees, will see in consult 2) EF 45-50% 3) Subarachnoid and intraparenchymal hemorrhage No anti-platelet/anti-coagulation Hopefully eventually he will be able to be placed back on ASA 81mg daily
[2018-02-08] MEDS: Insulin NovoLOG Aspart Correctional Sugar Inj SQ SCH ×4 (12:19→23:35)
--- NOTE | 2018-02-08 13:56 | P.PNNP ---
Subjective Interval history: Patient complains of itchiness in the right eye and bruising around right forehead Physical Exam Vital signs: Vital Signs 02/07/18 14:00 02/07/18 16:00 02/07/18 18:00 Temperature 98.1 F Pulse Rate 98 H 74 74 Respiratory Rate 28 H Blood Pressure 124/58 L Pulse Oximetry 97 02/07/18 20:00 02/07/18 20:51 02/07/18 22:00 Temperature 98.9 F Pulse Rate 83 79 Respiratory Rate 24 Blood Pressure 134/62 Pulse Oximetry 95 02/08/18 00:00 02/08/18 02:00 02/08/18 04:00 Temperature 98.9 F 98.3 F Pulse Rate 83 83 79 Respiratory Rate 22 Blood Pressure 123/58 L 127/60 Pulse Oximetry 02/08/18 07:31 Temperature Pulse Rate Respiratory Rate Blood Pressure Pulse Oximetry 95 Intake & Output 02/07/18 02/08/18 02/08/18 18:59 06:59 18:59 Intake Total 960 / 960 Output Total 550 / 550 Balance 410 / 410 Intake: Oral 960 / 960 Output: Urine 550 / 550 Other: Date of Last Bowel Movement 02/07/18 02/07/18 # Bowel Movements 0 - Constitutional no acute distress - Routine HEENT Exam Head: Present: abrasion Eye: Present: periorbital swelling (Right eye) - Routine Neck Exam Present: supple - Routine Respiratory Exam Present: CTA bilaterally - Routine Cardiovascular Exam Present: S1, S2 - Routine Abdominal Exam Present: soft, normoactive bowel sounds - Routine Extremities Exam Present: full ROM Assessment and Plan - Assessment (1) Acute worsening of stage 3 chronic kidney disease Code(s): N18.3 - Chronic kidney disease, stage 3 (moderate) Status: Acute (2) Hypokalemia Code(s): E87.6 - Hypokalemia Status: Acute (3) Fall Code(s): W19.XXXA - Unspecified fall, initial encounter Status: Acute (4) H/O stroke within last year Code(s): Z86.73 - Personal history of transient ischemic attack (TIA), and cerebral infarction without residual deficits Status: Acute - Plan Patient GFR improved to 32 creatinine down to 1.99 he is passing urine He may require pacemaker insertion K-Lyte potassium is normal History of syncope Dr. Parrish to follow on Friday
--- NOTE | 2018-02-08 14:20 | P.PNCC ---
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 Reportedly he was watching TV and stood up to walk to the bathroom at about 20:10 and fell on a tile floor hitting the right side of his head. His reports brief loss of consciousness. No noted seizure activity. EVAC was called. Vomited x1 during transport. GCS was 14 on arrival. In the ED workup included CT brain which demonstrated R temporoparietal subarachnoid hemorrhage and focal L frontal intraparenchymal hemorrhage. The emergency department physician discussed with Dr. Montenegro who requested Eliquis reversal. Patient's states that he last took Eliquis at 18:00 on 02/04. Of note, patient had a fall and presented in September 2017 with R hemiparesis. He had been on warfarin and initial CT negative. 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 He was felt to have M2 segment stroke. He was not administered TPA due to multiple contraindications. On followup imaging, he was found to have L subarachnoid hemorrhage, small r subdural without shift. He was followed by neurology and neurosurgery; no surgical intervention. states he was discharged home with home therapy and was not noted to have residual weakness. SUBJ 02/05: Lying in bed, patient complains about epistaxis since he woke up an hour ago. His platelet count is 68. I have ordered 1 packed unit of platelets stat, also 1 unit of FFP stat for INR of 1.4. MRI of the brain had been ordered per Dr. Montenegro request. Neurosurgery consult is pending 02/06: Lying in bed no acute distress, epistaxis controlled, right nare has a Rhino Rocket in place. MRI brain yesterday showed subarachnoid hemorrhage, parenchymal hemorrhage and small subdural hematoma involving the right temporal and occipital lobes, also intraparenchymal blood involving frontal lobes and left temporal lobe. 02/07: Patient is more somnolent today lying in bed no discomfort but difficult to arouse. is at the bedside. But once woken up patient is oriented to person and place. Did not receive any sedation. CT of the brain stat ordered again to rule out increasing bleed. Pupils remain equal. Dr. Rush cardiology stated patient had 5 sec pause. He will get EP consult to evaluate for PPM 02/08: Patient is more awake alert today cooperative. No pauses reported overnight. Discussed with Dr. Rush. Plan for permanent pacemaker lead this week. CT of the brain done yesterday shows stable CT with new finding of small amount of intraventricular blood Objective Vital Signs / I&O: Vital Signs 02/07/18 16:00 02/07/18 18:00 02/07/18 20:00 Temperature 98.1 F 98.9 F Pulse Rate 74 74 83 Respiratory Rate 28 H 24 Blood Pressure 124/58 L 134/62 Pulse Oximetry 97 02/07/18 20:51 02/07/18 22:00 02/08/18 00:00 Temperature 98.9 F Pulse Rate 79 83 Respiratory Rate 22 Blood Pressure 123/58 L Pulse Oximetry 95 02/08/18 02:00 02/08/18 04:00 02/08/18 07:31 Temperature 98.3 F Pulse Rate 83 79 Respiratory Rate Blood Pressure 127/60 Pulse Oximetry 95 02/08/18 08:00 02/08/18 10:00 02/08/18 12:00 Temperature 98 F 98.2 F Pulse Rate 81 80 84 Respiratory Rate 22 20 Blood Pressure 114/56 L 114/69 Pulse Oximetry 95 02/08/18 14:00 Temperature Pulse Rate 84 Respiratory Rate Blood Pressure Pulse Oximetry Intake & Output 02/07/18 02/08/18 02/08/18 18:59 06:59 18:59 Intake Total 960 / 960 Output Total 550 / 550 Balance 410 / 410 Intake: Oral 960 / 960 Output: Urine 550 / 550 Other: Date of Last Bowel Movement 02/07/18 02/07/18 # Bowel Movements 0 Result Diagrams: 02/07/18 13:00 02/07/18 13:00 Objective Remarks: GENERAL: Elderly male who is lying in bed alert awake SKIN: Warm and dry. Gauze dressing in place over right forearm. HEAD: Normocephalic. Large scalp hematoma overlying R temporal region EYES: R periorbital hematoma, Pupils equal and round, 3 mm and reactive. Subconjunctival hemorrhage right lateral bulbar conjunctiva. ENT: Right nostril has Rhino Rocket in place. No septal hematoma. Mucous membranes pink and moist. NECK: Trachea midline. No JVD. No midline tenderness CARDIOVASCULAR: irregular. No murmurs rubs or gallops. RESPIRATORY: No accessory muscle use. Clear to auscultation. Breath sounds equal bilaterally. GASTROINTESTINAL: Abdomen soft, non-tender, nondistended. Healed vertical scar upper abdomen. MUSCULOSKELETAL: Extremities without clubbing, cyanosis. Edema 2+ bilateral lower extremities. NEUROLOGICAL: Patient is more awake alert today. Oriented to person, place. No pronator drift, no tremor. 5/5 biceps/triceps bilaterally, auto bumper straightener strength is normal bilaterally. Normal lower extremity strength. Assessment and Plan - Problem List (1) CKD (chronic kidney disease) stage 4, GFR 15-29 ml/min Code(s): N18.4 - Chronic kidney disease, stage 4 (severe) Status: Acute (2) Fall Code(s): W19.XXXA - Unspecified fall, initial encounter Status: Acute (3) Scalp hematoma Code(s): S00.03XA - Contusion of scalp, initial encounter Status: Acute (4) H/O stroke within last year Code(s): Z86.73 - Personal history of transient ischemic attack (TIA), and cerebral infarction without residual deficits Status: Acute (5) TBI (traumatic brain injury) Code(s): S06.9X9A - Unspecified intracranial injury with loss of consciousness of unspecified duration, initial encounter Status: Acute (6) BPH (benign prostatic hyperplasia) Code(s): N40.0 - Benign prostatic hyperplasia without lower urinary tract symptoms Status: Chronic (7) Subconjunctival hemorrhage of right eye Code(s): H11.31 - Conjunctival hemorrhage, right eye Status: Acute (8) H/O malignant neuroendocrine tumor Code(s): Z85.9 - Personal history of malignant neoplasm, unspecified Status: Resolved (9) Thrombocytopenia Code(s): D69.6 - Thrombocytopenia, unspecified Status: Chronic (10) Iron deficiency anemia Code(s): D50.9 - Iron deficiency anemia, unspecified Status: Chronic (11) S/P TAVR (transcatheter aortic valve replacement) Code(s): Z95.2 - Presence of prosthetic heart valve Status: Acute (12) Subarachnoid bleed Code(s): I60.9 - Nontraumatic subarachnoid hemorrhage, unspecified Status: Acute (13) Chronic anticoagulation Code(s): Z79.01 - skilled nursing (current) use of 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 Status: Chronic - Assessment and Plan Plan: NEURO: TBI with loss of consciousness, s/p fall R temporoparietal subarachnoid hemorrhage in left frontal intraparenchymal hemorrhage, IVH Small subdural hematoma involving the right temporal and occipital lobes. Right scalp hematoma CT of the head stat 02/07-showed stable intracranial bleed, with new finding of small intraventricular hemorrhage Syncope could be cardiac, see CVS CT maxillofacial is negative for acute fracture. Acute epistaxis, now well controlled after Rhino Rocket and platelet transfusion. Remove Rhino Rocket today CT C-spinenegative for fracture CT brain 02/04 with traumatic SAH. Not currently candidate for CTA due to renal dysfunction. Prior CTA 10/09/17 negative for vascular malformation or aneurysm ( L carotid occlusion noted) Cardene if needed to maintain SBP <150. Keppra not currently indicated based on mild TBI by GCS criteria. Holding Eliquis, s/p Kcentra as per below. Neurosurgery Dr. Montenegro RESP: Prior history of tobacco abuse IS q 1 hour awake CV: Cardiac syncope ([address] Rush) HTN Atrial fibrillation on chronic anti-coagulation with Eliquis History of aortic stenosis now status post TAVR 08/2017. Appreciate cardiology consult by Dr. Rush Loop recorder showing a 5-second pause, and 2 bradycardic episodes on 2017. Pacemaker placement with EP this week Cardene as needed to maintain systolic blood pressure less than 150 Hold Eliquis and ASA due to ICH. Holding statin, metoprolol, lasix and metolazone for now. GI: GERD Protonix for stress ulcer prophylaxis and history of GERD. Diet per speech recommendation FEN/RENAL: BPH s/p TUMT CKD stage IIIb-IV Acute hypokalemia states he has been referred to Dr. Kamila Jha but hasn't followed up yet. Nephro Dr. Parrish following here Renal u/s, place lópez if e/o obstruction. Holding tamulosin, finasteride until able to take po. Has been on Lasix and metolazone for edema. Continue to hold for now ID: Monitor for signs and symptoms of infection HEME: History of neuroendocrine tumor status post small bowel resection in 2015 Chronic iron deficiency anemia Chronic thrombocytopenia He has been followed by Dr. Adan Cee as an outpatient for above, follow PET scans have shown no residual disease. Resume iron supplementation, B6, folic acid if passes swallow eval. ENDO: Diabetes mellitus Holding detemir. Monitor glucose AC/at bedtime and initiate medium dose insulin sliding scale as indicated PROPH: SCDs for DVT prophylaxis. He has chronically been on Eliquis which is on hold but pharmacologic DVT prophylaxis is contraindicated due to subarachnoid hemorrhage. Protonix for stress ulcer prophylaxis ACCESS: Peripheral IV providing adequate access at this time Patient is critically ill with TBI including traumatic subarachnoid hemorrhage in need of urgent reversal anticoagulation to decrease chance of expansion of hemorrhage. Discussed with Dr. Montenegro and LOGISTICAL ENGINEER. Patient and updated at bedside Patient is of advanced age and has undergone successful TAVR, however his subsequent course has been complicated by readmission for sepsis, ischemic stroke with fall and subsequent SAH and SDH, now additional fall and SAH. He has known left carotid occlusion and A fib which place him at risk for embolic stroke, though obviously with hemorrhage while on anticoagulation. He is at risk for further complication, PPM this week Level 3 Continue ICU care Code Status: Full Discussed Condition With: Dr. Verdin
[2018-02-08] MEDS: Senna/Docusate Sodium 8.6/50 MG Tablet PO SCH ×2 (17:54→21:52)
[2018-02-09 06:09] LABS: Hematocrit 22.5 % (39.0-51.0); Hemoglobin 7.5 gm/dL (13.0-17.0); Mean Corpuscular HGB Conc 33.5 % (32.0-36.0); Mean Corpuscular Volume 98.7 fL (80.0-100.0); Mean Platelet Volume 10.1 fL (7.0-11.0); Platelet Count 69 th/mm3 (150-450); Red Blood Count 2.28 mil/mm3 (4.50-5.90); Red Cell Distribution Width 15.4 % (11.6-17.2); White Blood Count 2.7 th/mm3 (4.0-11.0)
[2018-02-09 06:33] LABS: Alanine Aminotransferase 32 U/L (12-78); Albumin 3.3 g/dL (3.4-5.0); Anion Gap 5 meq/L (5-15); Aspartate Aminotransferase 64 U/L (15-37); Blood Urea Nitrogen 46 mg/dL (7-18); Calcium 8.8 mg/dL (8.5-10.1); Carbon Dioxide 32.7 meq/L (21.0-32.0); Chloride 100 meq/L (98-107); Glomerular Filtration Rate 36 mL/min (>89); Glucose,Random 129 mg/dL (74-106); Potassium 4.1 meq/L (3.5-5.1); Sodium 138 meq/L (136-145)
[2018-02-09 06:36] LABS: Alkaline Phosphatase 127 U/L (45-117); Total Protein 6.5 g/dL (6.4-8.2)
--- NOTE | 2018-02-09 06:56 | XR ---
EXAM DATE: 02/09/2018 5:17 AM EDT AGE/SEX: 87 years / Male INDICATIONS: Respiratory disease. CLINICAL DATA: This is the patient's subsequent encounter. Patient reports that signs and symptoms h ave been present for 4 - 6 days and indicates a pain score of Nonresponsive. MEDICAL/SURGICAL HISTORY: . Hypercholesterolemia. Hernia, hiatal. Diabetes mellitus type 2. Car cinoma, stomach. . Tonsillectomy. Coronary artery stent. Prostatectomy. Cataracts with lens. COMPARISON: [facility] [place], CHEST 1V SINGLE AP, 02/04/2018. . FINDINGS: A single AP view of the chest demonstrates lungs to be hypoinflated with no acute infiltrate. Heart s ize is borderline prominent but appears to be well compensated considering the degree of inspiratory effort. 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 Findings of a prior TAVR. CONCLUSION: 1. Hypoinflation with no acute infiltrate. 2. Compensated cardiomegaly. 3. 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 Electronically signed by: Adria Archer MD 02/09/2018 6:55 AM EDT
--- NOTE | 2018-02-09 07:49 | P.PNCC ---
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 Reportedly he was watching TV and stood up to walk to the bathroom at about 20:10 and fell on a tile floor hitting the right side of his head. His reports brief loss of consciousness. No noted seizure activity. [facility] was called. Vomited x1 during transport. GCS was 14 on arrival. In the ED workup included CT brain which demonstrated R temporoparietal subarachnoid hemorrhage and focal L frontal intraparenchymal hemorrhage. The emergency department physician discussed with Dr. Montenegro who requested Eliquis reversal. Patient's states that he last took Eliquis at 18:00 on 02/04. Of note, patient had a fall and presented in September 2017 with R hemiparesis. He had been on warfarin and initial CT negative. 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 He was felt to have M2 segment stroke. He was not administered TPA due to multiple contraindications. On followup imaging, he was found to have L subarachnoid hemorrhage, small r subdural without shift. He was followed by neurology and neurosurgery; no surgical intervention. states he was discharged home with home therapy and was not noted to have residual weakness. SUBJ 02/05: Lying in bed, patient complains about epistaxis since he woke up an hour ago. His platelet count is 68. I have ordered 1 packed unit of platelets stat, also 1 unit of FFP stat for INR of 1.4. MRI of the brain had been ordered per Dr. Montenegro request. Neurosurgery consult is pending 02/06: Lying in bed no acute distress, epistaxis controlled, right nare has a Rhino Rocket in place. MRI brain yesterday showed subarachnoid hemorrhage, parenchymal hemorrhage and small subdural hematoma involving the right temporal and occipital lobes, also intraparenchymal blood involving frontal lobes and left temporal lobe. 02/07: Patient is more somnolent today lying in bed no discomfort but difficult to arouse. is at the bedside. But once woken up patient is oriented to person and place. Did not receive any sedation. CT of the brain stat ordered again to rule out increasing bleed. Pupils remain equal. Dr. Rush cardiology stated patient had 5 sec pause. He will get EP consult to evaluate for PPM 02/08: Patient is more awake alert today cooperative. No pauses reported overnight. Discussed with Dr. Rush. Plan for permanent pacemaker lead this week. CT of the brain done yesterday shows stable CT with new finding of small amount of intraventricular blood. 02/09: No new problems overnight. Lungs remain clear and he is breathing comfortably while supine. Edema in ankles is much improved as renal function improves as well. Will benefit from permanent pacemaker. Objective Vital Signs / I&O: Vital Signs 02/08/18 08:00 02/08/18 10:00 02/08/18 12:00 Temperature 98 F 98.2 F Pulse Rate 81 80 84 Respiratory Rate 22 20 Blood Pressure 114/56 L 114/69 Pulse Oximetry 95 02/08/18 14:00 02/08/18 16:00 02/08/18 18:00 Temperature 97.9 F Pulse Rate 84 80 70 Respiratory Rate Blood Pressure 129/60 Pulse Oximetry 96 02/08/18 19:37 02/08/18 20:00 02/09/18 00:00 Temperature 98.4 F 98.2 F Pulse Rate 70 70 Respiratory Rate 28 H 24 Blood Pressure 129/60 135/65 Pulse Oximetry 96 99 97 02/09/18 02:00 02/09/18 04:00 02/09/18 06:00 Temperature 97.8 F Pulse Rate 78 74 80 Respiratory Rate 23 Blood Pressure 147/65 H Pulse Oximetry 97 02/09/18 07:23 Temperature Pulse Rate Respiratory Rate Blood Pressure Pulse Oximetry 95 Intake & Output 02/08/18 02/09/18 02/09/18 18:59 06:59 18:59 Intake Total 1400 / 1400 480 / 480 Output Total 500 / 500 750 / 750 Balance 900 / 900 -270 / -270 Weight 92.4 kg Intake: Oral 1400 / 1400 480 / 480 Output: Urine 500 / 500 750 / 750 Other: # Voids 4 4 Date of Last Bowel Movement 02/07/18 02/05/18 # Bowel Movements 0 Result Diagrams: 02/09/18 05:45 02/09/18 05:45 Objective Remarks: GENERAL: Elderly male who is lying in bed alert awake SKIN: Warm and dry. Gauze dressing in place over right forearm. HEAD: Normocephalic. Large scalp hematoma overlying R temporal region EYES: R periorbital hematoma, Pupils equal and round, 3 mm and reactive. Subconjunctival hemorrhage right lateral bulbar conjunctiva. ENT: Right nostril has Rhino Rocket in place. No septal hematoma. Mucous membranes pink and moist. NECK: Trachea midline. No JVD. No midline tenderness CARDIOVASCULAR: irregular, irregular. 2/6 systolic murmur left and right sternal border, no JVD. RESPIRATORY: No accessory muscle use. Clear to auscultation. Breath sounds equal bilaterally. GASTROINTESTINAL: Abdomen soft, non-tender, nondistended. Healed vertical scar upper abdomen. No guarding, bowel sounds active. MUSCULOSKELETAL: Extremities without clubbing, cyanosis. Edema 1+ bilateral lower extremities. NEUROLOGICAL: Patient is more awake alert today. Oriented to person, place. No pronator drift, no tremor. 5/5 biceps/triceps bilaterally, associate principal strength is normal bilaterally. Normal lower extremity strength. Conversant this morning. Assessment and Plan - Problem List (1) CKD (chronic kidney disease) stage 4, GFR 15-29 ml/min Code(s): N18.4 - Chronic kidney disease, stage 4 (severe) Status: Acute (2) Fall Code(s): W19.XXXA - Unspecified fall, initial encounter Status: Acute (3) Scalp hematoma Code(s): S00.03XA - Contusion of scalp, initial encounter Status: Acute (4) H/O stroke within last year Code(s): Z86.73 - Personal history of transient ischemic attack (TIA), and cerebral infarction without residual deficits Status: Acute (5) TBI (traumatic brain injury) Code(s): S06.9X9A - Unspecified intracranial injury with loss of consciousness of unspecified duration, initial encounter Status: Acute (6) BPH (benign prostatic hyperplasia) Code(s): N40.0 - Benign prostatic hyperplasia without lower urinary tract symptoms Status: Chronic (7) Subconjunctival hemorrhage of right eye Code(s): H11.31 - Conjunctival hemorrhage, right eye Status: Acute (8) H/O malignant neuroendocrine tumor Code(s): Z85.9 - Personal history of malignant neoplasm, unspecified Status: Resolved (9) Thrombocytopenia Code(s): D69.6 - Thrombocytopenia, unspecified Status: Chronic (10) Iron deficiency anemia Code(s): D50.9 - Iron deficiency anemia, unspecified Status: Chronic (11) S/P TAVR (transcatheter aortic valve replacement) Code(s): Z95.2 - Presence of prosthetic heart valve Status: Acute (12) Subarachnoid bleed Code(s): I60.9 - Nontraumatic subarachnoid hemorrhage, unspecified Status: Acute (13) Chronic anticoagulation Code(s): Z79.01 - oysterman (current) use of 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 Status: Chronic - Assessment and Plan Plan: NEURO: TBI with loss of consciousness, s/p fall R temporoparietal subarachnoid hemorrhage in left frontal intraparenchymal hemorrhage, IVH Small subdural hematoma involving the right temporal and occipital lobes. Right scalp hematoma CT of the head stat 02/07-showed stable intracranial bleed, with new finding of small intraventricular hemorrhage Syncope could be cardiac, see CVS CT maxillofacial is negative for acute fracture. Acute epistaxis, now well controlled after Rhino Rocket and platelet transfusion. Remove Rhino Rocket today CT C-spinenegative for fracture CT brain 02/04 with traumatic SAH. Not currently candidate for CTA due to renal dysfunction. Prior CTA 10/09/17 negative for vascular malformation or aneurysm ( L carotid occlusion noted) Cardene if needed to maintain SBP <150. Keppra not currently indicated based on mild TBI by GCS criteria. Holding Eliquis, s/p Kcentra as per below. Neurosurgery Dr. Montenegro RESP: Prior history of tobacco abuse IS q 1 hour awake CV: Cardiac syncope ([address] Rush) HTN Atrial fibrillation on chronic anti-coagulation with Eliquis History of aortic stenosis now status post TAVR 08/2017. Appreciate cardiology consult by Dr. Rush Loop recorder showing a 5-second pause, and 2 bradycardic episodes on 2017. Pacemaker placement with EP this week Cardene as needed to maintain systolic blood pressure less than 150 Hold Eliquis and ASA due to ICH. Holding statin, metoprolol, lasix and metolazone for now. GI: GERD Protonix for stress ulcer prophylaxis and history of GERD. Diet per speech recommendation FEN/RENAL: BPH s/p TUMT CKD stage IIIb-IV Acute hypokalemia states he has been referred to Dr. Kamila Jha but hasn't followed up yet. Nephro Dr. Parrish following here Renal u/s, place lópez if e/o obstruction. Holding tamulosin, finasteride until able to take po. Has been on Lasix and metolazone for edema. Continue to hold for now ID: Monitor for signs and symptoms of infection HEME: History of neuroendocrine tumor status post small bowel resection in 2015 Chronic iron deficiency anemia Chronic thrombocytopenia He has been followed by Dr. Adan Cee as an outpatient for above, follow PET scans have shown no residual disease. Resume iron supplementation, B6, folic acid if passes swallow eval. ENDO: Diabetes mellitus Holding detemir. Monitor glucose AC/at bedtime and initiate medium dose insulin sliding scale as indicated PROPH: SCDs for DVT prophylaxis. He has chronically been on Eliquis which is on hold but pharmacologic DVT prophylaxis is contraindicated due to subarachnoid hemorrhage. Protonix for stress ulcer prophylaxis ACCESS: Peripheral IV providing adequate access at this time Patient is critically ill with TBI including traumatic subarachnoid hemorrhage in need of urgent reversal anticoagulation to decrease chance of expansion of hemorrhage. Discussed with Dr. Montenegro and STORE GIFT WRAP ASSOCIATE. Patient and updated at bedside Patient is of advanced age and has undergone successful TAVR, however his subsequent course has been complicated by readmission for sepsis, ischemic stroke with fall and subsequent SAH and SDH, now additional fall and SAH. He has known left carotid occlusion and A fib which place him at risk for embolic stroke, though obviously with hemorrhage while on anticoagulation. He is at risk for further complication, PPM this week Level 3 Continue ICU care
[2018-02-09] MEDS: Potassium Chloride 25 MEQ Effervescent Tablet PO SCH ×2 (08:55→21:33)
[2018-02-09] MEDS: Senna/Docusate Sodium 8.6/50 MG Tablet PO SCH ×2 (08:56→21:35)
[2018-02-09] MEDS: Insulin NovoLOG Aspart Correctional Sugar Inj SQ SCH ×4 (08:56→21:34)
[2018-02-09] MEDS: Pantoprazole Inj 40 MG Vial IV.PUSH SCH (08:57)
--- NOTE | 2018-02-09 09:13 | P.PNNEU ---
Subjective Subjective Comments: No acute events reported No headache No chest pain No dyspnea Active Medications: Active Medications Al Hydroxide/Mg Hydroxide (Milk Of Magnesia Liq) 30 ml PO Q12H PRN PRN Reason: Mild Constipation Last Admin: 02/07/18 20:14 Dose: 30 ml Albuterol (Albuterol Neb (Prn)) 2.5 mg NEB Q2HR NEB PRN PRN Reason: SHORTNESS OF BREATH/WHEEZING Bisacodyl (Dulcolax Supp) 10 mg RECTAL DAILY PRN PRN Reason: SEVERE CONSITIPATION Chlorhexidine Gluconate (Chlorhexidine 2% Cloth) 3 pack TOPICAL DAILY@0400 RAMÍREZ Stop: 02/10/18 03:59 Last Admin: 02/08/18 05:46 Dose: 3 pack Chlorhexidine Gluconate (Chlorhexidine 2% Cloth) 3 pack TOPICAL DAILY@0400 PRN PRN Reason: Extra cloth needed Stop: 02/10/18 03:59 Dextrose (D50w Vial) 50 ml IV.PUSH UNSCH PRN PRN Reason: PER HYPOGLYCEMIA PROTOCOL Glucagon (Glucagon Inj) 1 mg OTHER UNSCH PRN PRN Reason: for Hypoglycemia Protocol Nicardipine HCl 25 mg/ Sodium (Chloride) 250 mls @ 50 mls/hr IV.CONT TITRATE PRN; Protocol PRN Reason: Per Protocol Insulin Aspart (Novolog Insulin Correctional Sugar Inj) 0 unit SQ ACHS [facility]; Protocol Last Admin: 02/09/18 08:56 Dose: Not Given Lactulose (Lactulose Liq) 30 ml PO DAILY PRN PRN Reason: SEVERE CONSITIPATION Last Admin: 02/07/18 20:14 Dose: 30 ml Ondansetron HCl (Zofran Odt) 4 mg PO Q6H PRN PRN Reason: NAUSEA OR VOMITING Last Admin: 02/05/18 00:28 Dose: 4 mg Oxymetazoline HCl (Afrin 0.05% Nasal Maribel) 2 spray NASAL Q12H PRN PRN Reason: epistaxis Last Admin: 02/05/18 21:37 Dose: 2 spray Pantoprazole Sodium (Protonix Inj) 40 mg IV.PUSH DAILY [facility] Last Admin: 02/09/18 08:57 Dose: 40 mg Potassium Bicarb/Potassium Chloride (K-Lyte Cl Eff) 25 meq PO BID [facility] Last Admin: 02/09/18 08:55 Dose: 25 meq Senna/Docusate Sodium (Ora-Colace) 1 tab PO BID [facility] Last Admin: 02/09/18 08:56 Dose: Not Given Sennosides (Senokot) 17.2 mg PO Q12H PRN PRN Reason: Moderate Constipation Last Admin: 02/07/18 20:14 Dose: 17.2 mg Sodium Chloride (Ns Flush) 2 ml IV.FLUSH BID [facility] Last Admin: 02/09/18 08:57 Dose: 2 ml Sodium Chloride (Ns Flush) 2 ml IV.FLUSH PRN PRN PRN Reason: FLUSH AFTER USING IV ACCESS Allergies/Adverse Reactions: Allergies Allergy/AdvReac Type Severity Reaction Status Date / Time niacin Allergy Unknown Nausea/Vomi Verified 02/04/18 21:42 ting sitagliptin AdvReac Severe STOMACH Verified 02/04/18 21:42 PAIN Physical Exam Vital signs: Vital Signs 02/08/18 10:00 02/08/18 12:00 02/08/18 14:00 Temperature 98.2 F Pulse Rate 80 84 84 Respiratory Rate 20 Blood Pressure 114/69 Pulse Oximetry 02/08/18 16:00 02/08/18 18:00 02/08/18 19:37 Temperature 97.9 F Pulse Rate 80 70 Respiratory Rate Blood Pressure 129/60 Pulse Oximetry 96 96 02/08/18 20:00 02/09/18 00:00 02/09/18 02:00 Temperature 98.4 F 98.2 F Pulse Rate 70 70 78 Respiratory Rate 28 H 24 Blood Pressure 129/60 135/65 Pulse Oximetry 99 97 02/09/18 04:00 02/09/18 06:00 02/09/18 07:23 Temperature 97.8 F Pulse Rate 74 80 Respiratory Rate 23 Blood Pressure 147/65 H Pulse Oximetry 97 95 02/09/18 08:00 Temperature Pulse Rate Respiratory Rate Blood Pressure Pulse Oximetry 100 Intake & Output 02/08/18 02/09/18 02/09/18 18:59 06:59 18:59 Intake Total 1400 / 1400 480 / 480 Output Total 500 / 500 750 / 750 Balance 900 / 900 -270 / -270 Weight 92.4 kg Intake: Oral 1400 / 1400 480 / 480 Output: Urine 500 / 500 750 / 750 Other: # Voids 4 4 Date of Last Bowel Movement 07/02/05/18 02/09/18 # Bowel Movements 0 Narrative: GENERAL: NAD, AAOx3 SKIN: Warm and dry. HEAD: Right periorbital/forehead ecchymosis EYES: Pupils equal and round. No scleral icterus. No injection or drainage. NECK: Trachea midline. No JVD. CARDIOVASCULAR: Appears regular RESPIRATORY: No accessory muscle use. GASTROINTESTINAL: Abdomen soft, non-tender, MUSCULOSKELETAL: Extremities without clubbing, cyanosis, or edema. No obvious deformities. NEUROLOGICAL: Awake and alert. No obvious cranial nerve deficits. Motor grossly within normal limits. Five out of 5 muscle strength in the arms and legs. Normal speech. PSYCHIATRIC: Appropriate mood and affect; insight and judgment normal. - Constitutional no acute distress - Routine HEENT Exam Head: Present: normocephalic Eye: Present: EOMI - Routine Neck Exam Present: supple Objective Laboratory Results - last 24 hr 02/08/18 02/08/18 02/08/18 11:13 18:12 21:00 WBC RBC Hgb Hct MCV MCH MCHC RDW Plt Count MPV Sodium Potassium Chloride Carbon Dioxide Anion Gap BUN Creatinine Estimated GFR POC Glucose 242 H 197 H 209 H Random Glucose Calcium Total Bilirubin AST ALT Alkaline Phosphatase Total Protein Albumin 02/09/18 02/09/18 02/09/18 05:45 05:45 08:39 WBC 2.7 L RBC 2.28 L Hgb 7.5 L Hct 22.5 L MCV 98.7 MCH 33.0 MCHC 33.5 RDW 15.4 Plt Count 69 L MPV 10.1 Sodium 138 Potassium 4.1 Chloride 100 Carbon Dioxide 32.7 H Anion Gap 5 BUN 46 H Creatinine 1.79 H Estimated GFR 36 L POC Glucose 150 H Random Glucose 129 H Calcium 8.8 Total Bilirubin 1.4 H AST 64 H ALT 32 Alkaline Phosphatase 127 H Total Protein 6.5 Albumin 3.3 L Review/Management - Diagnosis (1) Subarachnoid bleed Code(s): I60.9 - Nontraumatic subarachnoid hemorrhage, unspecified Status: Acute Current Visit: Yes (2) CKD (chronic kidney disease) stage 4, GFR 15-29 ml/min Code(s): N18.4 - Chronic kidney disease, stage 4 (severe) Status: Acute Current Visit: Yes (3) Fall Code(s): W19.XXXA - Unspecified fall, initial encounter Status: Acute Current Visit: Yes (4) Scalp hematoma Code(s): S00.03XA - Contusion of scalp, initial encounter Status: Acute Current Visit: Yes (5) H/O stroke within last year Code(s): Z86.73 - Personal history of transient ischemic attack (TIA), and cerebral infarction without residual deficits Status: Acute Current Visit: Yes (6) TBI (traumatic brain injury) Code(s): S06.9X9A - Unspecified intracranial injury with loss of consciousness of unspecified duration, initial encounter Status: Acute Current Visit: Yes - Review/Management Plan: Recurrent syncopal episodes Suspect related orthostatic hypotension, possible arrhythmia in the setting of anemia and underlying cardiovascular disease May be more prone to syncope with history of left carotid occlusion as well Recommendations Seen by cardiology consideration for possible pacemaker, EP evaluation Neuro stable PT Okay for floor with telemetry when cleared by neurosurgery and critical care
--- NOTE | 2018-02-09 15:08 | P.PNNP ---
Subjective Interval history: Resting, at bedside. Renal function is better. <Mago Acosta - Last Filed: 02/09/18 15:01> Physical Exam Vital signs: Vital Signs 02/08/18 16:00 02/08/18 18:00 02/08/18 19:37 Temperature 97.9 F Pulse Rate 80 70 Respiratory Rate Blood Pressure 129/60 Pulse Oximetry 96 96 02/08/18 20:00 02/09/18 00:00 02/09/18 02:00 Temperature 98.4 F 98.2 F Pulse Rate 70 70 78 Respiratory Rate 28 H 24 Blood Pressure 129/60 135/65 Pulse Oximetry 99 97 02/09/18 04:00 02/09/18 06:00 02/09/18 07:23 Temperature 97.8 F Pulse Rate 74 80 Respiratory Rate 23 Blood Pressure 147/65 H Pulse Oximetry 97 95 02/09/18 08:00 02/09/18 10:00 02/09/18 12:00 Temperature 98.8 F 98.8 F Pulse Rate 80 78 80 Respiratory Rate 22 22 Blood Pressure 138/62 132/62 Pulse Oximetry 95 98 02/09/18 14:00 Temperature Pulse Rate 80 Respiratory Rate Blood Pressure Pulse Oximetry Intake & Output 02/08/18 02/09/18 02/09/18 18:59 06:59 18:59 Intake Total 1400 / 1400 480 / 480 Output Total 500 / 500 750 / 750 Balance 900 / 900 -270 / -270 Weight 92.4 kg Intake: Oral 1400 / 1400 480 / 480 Output: Urine 500 / 500 750 / 750 Other: # Voids 4 4 Date of Last Bowel Movement 02/07/18 02/05/18 02/09/18 # Bowel Movements 0 - Constitutional no acute distress - Routine HEENT Exam Head: Present: abrasion. Absent: atraumatic Eye: Present: EOMI ENT: Present: mucous membranes moist Comments: facial bruising s/p trauma - Routine Neck Exam Present: supple, full ROM - Routine Respiratory Exam Present: CTA bilaterally. Absent: accessory muscle use - Routine Cardiovascular Exam Present: bradycardia, irregular rhythm Comments: A fib with pauses - Routine Abdominal Exam Present: soft, normoactive bowel sounds - Routine Extremities Exam Present: full ROM. Absent: edema - Routine Skin Exam Present: intact, warm - Routine Neurological Exam Present: alert, oriented X3, CN II-XII intact - Detailed Neurological Exam: Coma Scale Eye Opening: Spontaneous Verbal Response: Oriented Motor Response: Obey commands Hair Coma Scale Total: 15 - Routine Psychiatric Exam Present: normal affect, normal thought process <Mago Acosta - Last Filed: 02/09/18 15:01> Vital signs: Vital Signs 02/09/18 12:00 02/09/18 14:00 02/09/18 16:00 Temperature 98.8 F 98.4 F Pulse Rate 80 80 76 Respiratory Rate 22 20 Blood Pressure 132/62 138/68 Pulse Oximetry 98 100 02/09/18 17:56 02/09/18 20:00 02/09/18 21:00 Temperature 97.7 F Pulse Rate 76 85 80 Respiratory Rate 18 Blood Pressure 127/77 Pulse Oximetry 98 02/09/18 22:00 02/09/18 23:00 02/10/18 00:00 Temperature 98.7 F Pulse Rate 74 82 78 Respiratory Rate 18 Blood Pressure 123/67 Pulse Oximetry 98 02/10/18 01:00 02/10/18 02:00 02/10/18 03:00 Temperature 98.4 F Pulse Rate 80 76 80 Respiratory Rate 18 Blood Pressure 119/67 Pulse Oximetry 97 02/10/18 04:00 02/10/18 05:00 02/10/18 06:00 Temperature Pulse Rate 75 76 77 Respiratory Rate Blood Pressure Pulse Oximetry 02/10/18 08:00 Temperature 98.2 F Pulse Rate 75 Respiratory Rate 18 Blood Pressure 118/67 Pulse Oximetry 98 Intake & Output 02/09/18 02/10/18 02/10/18 18:59 06:59 18:59 Intake Total 720 / 720 360 / 360 Output Total 600 / 600 400 / 400 Balance 120 / 120 -40 / -40 Weight 90.7 kg Intake: Oral 720 / 720 360 / 360 Output: Urine 600 / 600 400 / 400 Other: Date of Last Bowel Movement 02/09/18 # Bowel Movements 0 0 <Keith Parrish - Last Filed: 02/10/18 11:15> Assessment and Plan - Assessment (1) Acute worsening of stage 3 chronic kidney disease Code(s): N18.3 - Chronic kidney disease, stage 3 (moderate) Status: Acute Plan: Baseline creatinine around 1. MILLI can be due to renal hypoperfusion due to hypotension and recent cardiac dysrhythmias Renal function is improving Continue to monitor renal function He is non oliguric Avoid nephrotoxic agents, dose appropriate to renal status Not on IVF (2) Hypokalemia Code(s): E87.6 - Hypokalemia Status: Acute Plan: Continue to replace potassium if needed (3) Fall Code(s): W19.XXXA - Unspecified fall, initial encounter Status: Acute Plan: Needs PT/OT Also has recently had cardiac pauses, may be the reason for his frequent falls. (4) H/O stroke within last year Code(s): Z86.73 - Personal history of transient ischemic attack (TIA), and cerebral infarction without residual deficits Status: Acute Plan: New Intraventricular bleed in addition to known subarachnoid hemorrhage Neurosurgery following, medical management (5) DM II (diabetes mellitus, type II), controlled Code(s): E11.9 - Type 2 diabetes mellitus without complications Status: Acute Qualifiers: Diabetes mellitus longterm insulin use: with longterm use Diabetes mellitus complication status: without complication Qualified Code(s): E11.9 - Type 2 diabetes mellitus without complications; Z79.4 - medical terminologist (current) use of insulin Plan: Maintain glucose 140-180mg/dL while admitted (6) Sinus pause Code(s): I45.5 - Other specified heart block Status: Acute Plan: Cardiology evaluated, may need PPM placed if it continues <Mago Acosta - Last Filed: 02/09/18 15:01> - Assessment (1) Acute worsening of stage 3 chronic kidney disease Code(s): N18.3 - Chronic kidney disease, stage 3 (moderate) Status: Acute (2) Hypokalemia Code(s): E87.6 - Hypokalemia Status: Acute (3) Fall Code(s): W19.XXXA - Unspecified fall, initial encounter Status: Acute (4) H/O stroke within last year Code(s): Z86.73 - Personal history of transient ischemic attack (TIA), and cerebral infarction without residual deficits Status: Acute (5) DM II (diabetes mellitus, type II), controlled Code(s): E11.9 - Type 2 diabetes mellitus without complications Status: Acute Qualifiers: Diabetes mellitus buttermaker continuous churn insulin use: with longterm use Diabetes mellitus complication status: without complication Qualified Code(s): E11.9 - Type 2 diabetes mellitus without complications; Z79.4 - medical terminologist (current) use of insulin (6) Sinus pause Code(s): I45.5 - Other specified heart block Status: Acute - Attending Attestation patient was seen and examined. Agree with above assessment and plan. Renal function is stable, GFR at baseline. <Keith Parrish - Last Filed: 02/10/18 11:15>
--- NOTE | 2018-02-09 17:15 | P.PNPAL ---
Reason for Visit Reason for visit: a. To assist with evaluation and management of symptoms including: dyspnea/ cough, pain, debility b. To assist medical decision maker(s) with: better understanding of current medical conditions; weighing benefits/burdens of medical treatment options; making medical treatment decisions. Subjective Subjective/Interval History: Dual visit with ALVA Martinez. Pt asleep in bed, at bedside. Pt reports feeling tired. He was OOB to chair for 4 hours. He cites also lack of sleep last night. He is quite pleased to be able to have thin liquids, he had been asking for water. Pt denies pain today, his ribs and left arm are not hurting him today and he is nontender on exam. he does have bruising on his right arm. Denies feeling SOB today. CXR shows hypoinflation. Sat 98%. Breathing unlabored and lungs CTA. Cardiology consulted, EP consult pending for eval for pacemaker. Follow up head CT 02/07 showed new intraventricular hemorrhage, no midline shift. PLT 69 today. Kidney function improving. Family/Friend Interactions: Spoke with pt and family, provided medical update, briefly reviewed possibility of pacemaker placement, provided support. Advance Directives Advance Directives Date on File: 07/19/92 Health Care Surrogate Name and Number: Veda Renteria [phone] Documented care wishes:: Living will with standard verbiage requesting life prolonging procedures and artificial nutrition be withheld if it would only serve to artificially prolong dying process. Objective Vital Signs: Vital Signs 02/08/18 18:00 02/08/18 19:37 02/08/18 20:00 Temperature 98.4 F Pulse Rate 70 70 Respiratory Rate 28 H Blood Pressure 129/60 Pulse Oximetry 96 99 02/09/18 00:00 02/09/18 02:00 02/09/18 04:00 Temperature 98.2 F 97.8 F Pulse Rate 70 78 74 Respiratory Rate 24 23 Blood Pressure 135/65 147/65 H Pulse Oximetry 97 97 02/09/18 06:00 02/09/18 07:23 02/09/18 08:00 Temperature 98.8 F Pulse Rate 80 80 Respiratory Rate 22 Blood Pressure 138/62 Pulse Oximetry 95 95 02/09/18 10:00 02/09/18 12:00 02/09/18 14:00 Temperature 98.8 F Pulse Rate 78 80 80 Respiratory Rate 22 Blood Pressure 132/62 Pulse Oximetry 98 02/09/18 16:00 Temperature Pulse Rate 80 Respiratory Rate Blood Pressure Pulse Oximetry Intake & Output 02/08/18 02/09/18 02/09/18 18:59 06:59 18:59 Intake Total 1400 / 1400 480 / 480 Output Total 500 / 500 750 / 750 Balance 900 / 900 -270 / -270 Weight 92.4 kg Intake: Oral 1400 / 1400 480 / 480 Output: Urine 500 / 500 750 / 750 Other: # Voids 4 4 Date of Last Bowel Movement 02/07/18 02/05/18 02/09/18 # Bowel Movements 0 Physical Exam: CONSTITUTIONAL/GENERAL: This is an adequately nourished patient, in no apparent distress. SKIN: No jaundice, rashes, or lesions. + Ecchymoses on upper extremities. Skin temperature appropriate. Not diaphoretic. HEAD: Ecchymosis right face. Normocephalic. EYES: PERRL. Extraocular motions intact. No scleral icterus. No injection or drainage. Fundi not examined. Ecchymosis and swelling around right orbit. ENT: Hearing grossly normal. Nose with nasal tampon, scant bleeding NECK: Trachea midline. Supple. CARDIOVASCULAR: RRR, faint murmur, no gallops, or rubs. No JVD. RESPIRATORY/CHEST: Symmetric, unlabored respirations. Clear to auscultation. Breath sounds equal bilaterally. Diminished. right flank TTP GASTROINTESTINAL: Abdomen soft, non-tender, protuberant. No hepato-splenomegaly , or palpable masses. No guarding. Bowel sounds present. MUSCULOSKELETAL: Extremities without clubbing, cyanosis, No mottling or clubbing. +1 pitting BLE edema NEUROLOGICAL: Awake and alert. Motor and sensory grossly within normal limits. Follows commands. Moves all extremities. PSYCHIATRIC: No obvious anxiety/depression. no apparent hallucinations or other psychotic thought process. Diagnostic Tests Laboratory: Laboratory Results - last 72 hr 02/06/18 02/06/18 02/07/18 20:07 21:40 08:30 WBC RBC Hgb Hct MCV MCH MCHC RDW Plt Count MPV Puncture Site Patient Temperature O2 Saturation ABG pH ABG pCO2 ABG pO2 ABG HCO3 ABG O2 Content ABG Base Excess ABG Methemoglobin Eduardo Test Hemoglobin Carboxyhemoglobin Inspired O2 Critical Value Sodium Potassium Chloride Carbon Dioxide Anion Gap BUN Creatinine Estimated GFR POC Glucose 175 H 170 H Random Glucose Calcium Total Bilirubin AST ALT Alkaline Phosphatase Total Protein Albumin Urine Color Yellow Urine Clarity Clear Urine pH 5.0 Ur Specific [place] 1.013 Urine Protein Negative Urine Glucose (UA) Negative Urine Ketones Negative Urine Occult Blood Negative Urine Nitrate Negative Urine Bilirubin Negative Urine Urobilinogen Less than 2 Ur Leukocyte Esterase Negative Urine RBC 1 Urine WBC 1 02/07/18 02/07/18 02/07/18 12:26 13:00 13:00 WBC 2.7 L RBC 2.24 L Hgb 7.4 L Hct 22.7 L MCV 101.2 H MCH 33.1 MCHC 32.7 RDW 16.3 Plt Count 85 L MPV 10.1 Puncture Site Patient Temperature O2 Saturation ABG pH ABG pCO2 ABG pO2 ABG HCO3 ABG O2 Content ABG Base Excess ABG Methemoglobin Eduardo Test Hemoglobin Carboxyhemoglobin Inspired O2 Critical Value Sodium 141 Potassium 3.8 Chloride 103 Carbon Dioxide 29.6 Anion Gap 8 BUN 54 H Creatinine 1.99 H Estimated GFR 32 L POC Glucose 143 H Random Glucose 136 H Calcium 8.6 Total Bilirubin 1.3 H AST 76 H ALT 34 Alkaline Phosphatase 122 H Total Protein 6.4 Albumin 3.0 L Urine Color Urine Clarity Urine pH Ur Specific [place] Urine Protein Urine Glucose (UA) Urine Ketones Urine Occult Blood Urine Nitrate Urine Bilirubin Urine Urobilinogen Ur Leukocyte Esterase Urine RBC Urine WBC 02/07/18 02/07/18 02/07/18 13:00 17:21 19:48 WBC RBC Hgb Hct MCV MCH MCHC RDW Plt Count MPV Puncture Site Right radial Patient Temperature 98.6 O2 Saturation 92 ABG pH 7.50 H ABG pCO2 43 H ABG pO2 69 ABG HCO3 33 H ABG O2 Content 9.3 L ABG Base Excess 9.4 H ABG Methemoglobin 0.9 Eduardo Test Present Hemoglobin 7.2 L Carboxyhemoglobin 2.3 Inspired O2 21 Critical Value No Sodium Potassium Chloride Carbon Dioxide Anion Gap BUN Creatinine Estimated GFR POC Glucose 188 H 211 H Random Glucose Calcium Total Bilirubin AST ALT Alkaline Phosphatase Total Protein Albumin Urine Color Urine Clarity Urine pH Ur Specific [place] Urine Protein Urine Glucose (UA) Urine Ketones Urine Occult Blood Urine Nitrate Urine Bilirubin Urine Urobilinogen Ur Leukocyte Esterase Urine RBC Urine WBC 02/08/18 02/08/18 02/08/18 11:13 18:12 21:00 WBC RBC Hgb Hct MCV MCH MCHC RDW Plt Count MPV Puncture Site Patient Temperature O2 Saturation ABG pH ABG pCO2 ABG pO2 ABG HCO3 ABG O2 Content ABG Base Excess ABG Methemoglobin Eduardo Test Hemoglobin Carboxyhemoglobin Inspired O2 Critical Value Sodium Potassium Chloride Carbon Dioxide Anion Gap BUN Creatinine Estimated GFR POC Glucose 242 H 197 H 209 H Random Glucose Calcium Total Bilirubin AST ALT Alkaline Phosphatase Total Protein Albumin Urine Color Urine Clarity Urine pH Ur Specific [place] Urine Protein Urine Glucose (UA) Urine Ketones Urine Occult Blood Urine Nitrate Urine Bilirubin Urine Urobilinogen Ur Leukocyte Esterase Urine RBC Urine WBC 02/09/18 02/09/18 02/09/18 05:45 05:45 08:39 WBC 2.7 L RBC 2.28 L Hgb 7.5 L Hct 22.5 L MCV 98.7 MCH 33.0 MCHC 33.5 RDW 15.4 Plt Count 69 L MPV 10.1 Puncture Site Patient Temperature O2 Saturation ABG pH ABG pCO2 ABG pO2 ABG HCO3 ABG O2 Content ABG Base Excess ABG Methemoglobin Eduardo Test Hemoglobin Carboxyhemoglobin Inspired O2 Critical Value Sodium 138 Potassium 4.1 Chloride 100 Carbon Dioxide 32.7 H Anion Gap 5 BUN 46 H Creatinine 1.79 H Estimated GFR 36 L POC Glucose 150 H Random Glucose 129 H Calcium 8.8 Total Bilirubin 1.4 H AST 64 H ALT 32 Alkaline Phosphatase 127 H Total Protein 6.5 Albumin 3.3 L Urine Color Urine Clarity Urine pH Ur Specific [place] Urine Protein Urine Glucose (UA) Urine Ketones Urine Occult Blood Urine Nitrate Urine Bilirubin Urine Urobilinogen Ur Leukocyte Esterase Urine RBC Urine WBC 02/09/18 02/09/18 11:41 16:31 WBC RBC Hgb Hct MCV MCH MCHC RDW Plt Count MPV Puncture Site Patient Temperature O2 Saturation ABG pH ABG pCO2 ABG pO2 ABG HCO3 ABG O2 Content ABG Base Excess ABG Methemoglobin Eduardo Test Hemoglobin Carboxyhemoglobin Inspired O2 Critical Value Sodium Potassium Chloride Carbon Dioxide Anion Gap BUN Creatinine Estimated GFR POC Glucose 158 H 204 H Random Glucose Calcium Total Bilirubin AST ALT Alkaline Phosphatase Total Protein Albumin Urine Color Urine Clarity Urine pH Ur Specific [place] Urine Protein Urine Glucose (UA) Urine Ketones Urine Occult Blood Urine Nitrate Urine Bilirubin Urine Urobilinogen Ur Leukocyte Esterase Urine RBC Urine WBC Result Diagrams: 02/09/18 05:45 02/09/18 05:45 Imaging: ITS Impressions Cervical Spine CT 02/04/18 21:19 CONCLUSION: 1. No evidence of compression deformity or spondylolisthesis. 2. Multilevel discogenic degenerative changes and facet joint hypertrophy. Face CT 02/04/18 21:19 CONCLUSION: 1. No facial bone fractures seen. 2. Opacified frontal ethmoid and maxillary sinuses with evidence of resorption of nasal and ethmoid septa suggests chronic process. There is, however, an air- fluid level in the right maxillary sinus. Pelvis X-Ray 02/04/18 21:19 CONCLUSION: No gross bony abnormality seen. Abdomen/Bladder Ultrasound 02/05/18 00:00 CONCLUSION: 1. Echogenic kidneys consistent with medical renal disease. No evidence for obstructive uropathy. 2. Bilateral renal cysts with a dominant 7.2 cm cyst in the superior pole of the right kidney. 3. Small amount ascites. 4. Prominent prostate. Head MRI 02/05/18 00:00 CONCLUSION: 1. Traumatic brain injury which includes significant subarachnoid hemorrhage, parenchymal hemorrhage and small subdural hematoma involving the right temporal and occipital lobes. 2. Additional hemorrhage or identified in both frontal lobes and left temporal lobe. 3. Right frontal cephalohematoma 4. No evidence of significant mass effect, intra-axial edema or acute infarct. Carotid Doppler Study 02/07/18 00:00 CONCLUSION: 1. Right Internal Carotid Artery: Findings indicate <50% stenosis. 2. Left Internal Carotid Artery: Findings indicate undetectable blood flow suggesting total occlusion. Head CT 02/07/18 11:10 CONCLUSION: 1. Bilateral subarachnoid hemorrhage. 2. Intraventricular hemorrhage which is new from previous study. 3. No midline shift or mass effect. . Chest X-Ray 02/09/18 06:00 CONCLUSION: 1. Hypoinflation with no acute infiltrate. 2. Compensated cardiomegaly. 3. 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 Assessment and Plan - Disease Oriented Problem List (1) Subarachnoid bleed (2) TBI (traumatic brain injury) (3) CKD (chronic kidney disease) stage 4, GFR 15-29 ml/min (4) Fall (5) Scalp hematoma (6) Subconjunctival hemorrhage of right eye Pertinent Non-Medical Issues: Psychosocial: Pt is with 5 children. He is originally from [place] and has been in [place] for nearly 30 years. 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 Spiritual: Hinduism. Family's communications designer currently attending to spiritual needs. Legal: Pt currently is capacitated to make medical decision. IN the event he becomes incapacitated, in his living will he designated [facility] Veda renteria Ethical issues impacting care: none identified Important Contacts: Veda Renteria [phone] Prognosis: This is an 87 yo male with hx falls, AF on eliquis, IDDM, CAD, s/p TAVR who presented after a fall and was found to have subarachnoid hemorrhage on the right side, focal parenchymal hemorrhage on the left side. He is stable currently but is at significant risk for developing pneumonia from aspiration of blood. He is also at risk for further falls, bleeds, and for clots and stroke. He requires anticoagulation for AF & mechanical valve but his tendency for falls is a complicating factor and presents a dilemma for future management. His underlying comorbitities further reduce his likelihood of making a full recovery. He has been declining since his TAVR and it is likely that he will continue to decline. Pending eval for pacemaker which would not alleviate all factors in his syncopal episodes and will will continue to have high risk for falls. If remain aggressive, he will likely need rehab and therapy. Code Status: Full Code Plan: - LEGAL DECISON MAKER - Pt currently is capacitate to make medical decision. IN the event he becomes incapacitated, in his living will he designated [facility] - CODE STATUS- full code - GOALS - Pt and family beginning to understand complexity in managing pt's comorbidities without exacerbating others. Still verbalizing aggressive goals. - SYMPTOMS - * pain - risk for pain d/t injuries from repeated falls, has significant bruising and swelling right side of face, numerous bruises on BUE. Today denies any pain, nontender on exam. If he does have pain, could consider tylenol. Recommend caution with opiates or other sedating medications b/c of his risk for falls. * dyspnea/cough - Pt reports SOB on exertion since his TAVR. He had nosebleed after his fall and swallowed blood, reports having coughed up blood clots. He is at risk for PNA. Denies SOB at rest on my evaluation, fatigued after 4 hours OOB to chair. EP consult for pacemaker eval pending. Cardiology consult appreciated. * debility - Pt with decline since BEFORE TAVR, has been having activity intolerance, no longer able to assist with household duties and chores. At risk for falls. Per neuro his syncopal episodes likely multifactorial. SALES REP following , mech soft diet and upgraded to hin liquids. PT following. consideration being made for home health after discharge. d/w pt and family use of assistive devices, fall precautions - Palliative care will continue to follow during hospital course as condition evolves, to assist patient/decision-maker with understanding of medical conditions, weighing benefits/burdens of treatment options, for clarification of goals of treatment. Additionally will assist with any symptoms of palliative concern Attestation Attestation: To help prompt me to consider important information that might be impacting today's encounter and assessment, information from prior notes written by myself or my colleagues may have been "brought forward" into today's note. My signature on this note, however, is an attestation that I personally performed the exam, history, and/or decision-making noted today, and, unless otherwise indicated, the interactions with patient, family, and staff as well as the review of records all occurred today. I also attest that the listed assessment and stated plan reflect my best clinical judgment today based on the combination of historical information, prior notes, and today's exam/ interactions. When time spent is documented, it refers only to time spent today by the signer, or if indicated, combined time spent today by collaborating physician/nurse practitioner.
--- NOTE | 2018-02-09 19:14 | P.PNCA ---
Subjective Interval history: No events overnight Up to the chair earlier No complaints, feels well Physical Exam Vital signs: Vital Signs 02/08/18 19:37 02/08/18 20:00 02/09/18 00:00 Temperature 98.4 F 98.2 F Pulse Rate 70 70 Respiratory Rate 28 H 24 Blood Pressure 129/60 135/65 Pulse Oximetry 96 99 97 02/09/18 02:00 02/09/18 04:00 02/09/18 06:00 Temperature 97.8 F Pulse Rate 78 74 80 Respiratory Rate 23 Blood Pressure 147/65 H Pulse Oximetry 97 02/09/18 07:23 02/09/18 08:00 02/09/18 10:00 Temperature 98.8 F Pulse Rate 80 78 Respiratory Rate 22 Blood Pressure 138/62 Pulse Oximetry 95 95 02/09/18 12:00 02/09/18 14:00 02/09/18 16:00 Temperature 98.8 F 98.4 F Pulse Rate 80 80 76 Respiratory Rate 22 20 Blood Pressure 132/62 138/68 Pulse Oximetry 98 100 02/09/18 17:56 Temperature Pulse Rate 76 Respiratory Rate Blood Pressure Pulse Oximetry Intake & Output 02/09/18 02/09/18 02/10/18 06:59 18:59 06:59 Intake Total 480 / 480 720 / 720 Output Total 750 / 750 600 / 600 Balance -270 / -270 120 / 120 Weight 92.4 kg Intake: Oral 480 / 480 720 / 720 Output: Urine 750 / 750 600 / 600 Other: # Voids 4 Date of Last Bowel Movement 02/05/18 02/09/18 # Bowel Movements 0 0 Narrative: GENERAL: NAD, AAOx3 SKIN: Warm and dry. HEAD: Right periorbital/forehead ecchymosis EYES: Pupils equal and round. No scleral icterus. No injection or drainage. NECK: Trachea midline. No JVD. CARDIOVASCULAR: Appears regular RESPIRATORY: No accessory muscle use. GASTROINTESTINAL: Abdomen soft, non-tender, MUSCULOSKELETAL: Extremities without clubbing, cyanosis, or edema. No obvious deformities. NEUROLOGICAL: Awake and alert. No obvious cranial nerve deficits. Motor grossly within normal limits. Five out of 5 muscle strength in the arms and legs. Normal speech. PSYCHIATRIC: Appropriate mood and affect; insight and judgment normal. Assessment and Plan - Assessment (1) Syncope Code(s): R55 - Syncope and collapse Status: Acute (2) Sinus pause Code(s): I45.5 - Other specified heart block Status: Acute (3) Subarachnoid bleed Code(s): I60.9 - Nontraumatic subarachnoid hemorrhage, unspecified Status: Acute (4) Fall Code(s): W19.XXXA - Unspecified fall, initial encounter Status: Acute (5) Scalp hematoma Code(s): S00.03XA - Contusion of scalp, initial encounter Status: Acute (6) TBI (traumatic brain injury) Code(s): S06.9X9A - Unspecified intracranial injury with loss of consciousness of unspecified duration, initial encounter Status: Acute (7) Thrombocytopenia Code(s): D69.6 - Thrombocytopenia, unspecified Status: Chronic (8) S/P TAVR (transcatheter aortic valve replacement) Code(s): Z95.2 - Presence of prosthetic heart valve Status: Acute (9) Chronic anticoagulation Code(s): Z79.01 - terminal supervisor (current) use of 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 Status: Chronic (10) Atrial fibrillation Code(s): I48.91 - Unspecified atrial fibrillation Status: Acute - Plan 1) Syncope/Ventricular pause Loop recorder showing a 5 second pause with significant bradycardia afterwards which was at the time the said he collapsed He's on a low dose of Beta Oren therapy and this will be held He should be considered for pacemaker placement Doubt small dose of BB was the cause Discussed with Dr. Germain who agrees, will see in consult 2) EF 45-50% 3) Subarachnoid and intraparenchymal hemorrhage No anti-platelet/anti-coagulation Hopefully eventually he will be able to be placed back on ASA 81mg daily 4) Will defer further management to Dr. Germain for consideration of PPM Aspirin if able by Neuro/Neurosurgery if possible before discharge or recommendations on possibly restarting in the future
[2018-02-10 06:33] LABS: Calcium 8.4 mg/dL (8.5-10.1); Carbon Dioxide 30.7 meq/L (21.0-32.0); Potassium 4.1 meq/L (3.5-5.1)
--- NOTE | 2018-02-10 08:33 | MB ---
cc: Akash Germain MD,Francia Montenegro,Suleiman Dunlap MD DATE: 02/06/2018 REASON FOR CONSULTATION: Syncope 5 second pause for permanent pacemaker insertion. HISTORY OF PRESENT ILLNESS: Mr. Miller is an 87-year-old gentleman with a history of atrial fibrillation, COPD, diabetes mellitus, stroke, intracranial hemorrhage who had a previous TAVR was having an episode of dizziness and near syncope. A loop recorder was inserted. He had a TAVR in August, right hemiparesis in September 2017. The gentleman was experiencing an episode of syncope. Loop recorder was inserted. He presented to the emergency room due to his syncopal episode and a subarachnoid hemorrhage. Interrogation of the loop recorder indicated an episode of 5-second pauses. I was consulted for evaluation and management. The chart was reviewed. The patient was evaluated. ALLERGIES: NIACIN AND SITAGLIPTIN. SOCIAL HISTORY: This gentleman denies smoking and drinking. FAMILY HISTORY: Noncontributory to his current medical condition. MEDICATIONS AT HOME: 1. Eliquis. 2. Metolazone. 3. Folic acid. 4. Potassium. 5. Levemir. 6. Lipitor. 7. Toprol. 8. Finasteride. 9. Multivitamin. REVIEW OF SYSTEMS: He refers feeling better. No chest pain. No chest discomfort. No headache. No fever. PHYSICAL EXAMINATION: GENERAL: Alert, fully oriented. HEENT: He has some facial bruises. VITAL SIGNS: Blood pressure and evaluation 122/77, pulse 85, respiratory rate 18. LUNGS: Ventilated. CARDIOVASCULAR: S1, S2, irregular. No gallop. ABDOMEN: Soft. No masses. No bruit. EXTREMITIES: No edema. ELECTROCARDIOGRAM: Atrial fibrillation, diffuse ST changes. LABORATORY DATA: Hemoglobin is 7.5, white blood cell 2.7. INR 1.3. Potassium 4.1, creatinine 1.78. ASSESSMENT AND RECOMMENDATIONS: Mr. Miller has significant bradycardia. He had a syncopal episode in the past. He is on no significant negative chronotropic medication. He had a previous TAVR in August. Since the TAVR, this gentleman was having episodes of syncope. 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 This gentleman definitely will need a pacemaker. I was contemplating the insertion of the Micra pacemaker. I had a long conversation with him. The risks, the nature and the benefits of the procedure were clearly stated to him. Risks include pneumothorax, cardiac perforation, stroke, need for open heart surgery and even . The patient understood and agreed to proceed. His hemoglobin is only 7.5. This gentleman is going to need blood transfusion before any procedure. I will keep him in the morning, n.p.o. after breakfast. Then, further decision will be taken. Akash Germain MD HS/DL , 08:06 AM , 08:31 AM
[2018-02-10] MEDS: Insulin NovoLOG Aspart Correctional Sugar Inj SQ SCH ×4 (08:35→21:09)
--- NOTE | 2018-02-10 08:44 | P.PNNS ---
Subjective Interval history: Note is for 02/09/18, when patient was seen and examined. 02/09: neurologically doing well, no new neuro complaints. being planned for pacemaker placement. <Amy Dunn - Last Filed: 02/10/18 08:45> Physical Exam Vital signs: Vital Signs 02/09/18 10:00 02/09/18 12:00 02/09/18 14:00 Temperature 98.8 F Pulse Rate 78 80 80 Respiratory Rate 22 Blood Pressure 132/62 Pulse Oximetry 98 02/09/18 16:00 02/09/18 17:56 02/09/18 20:00 Temperature 98.4 F 97.7 F Pulse Rate 76 76 85 Respiratory Rate 20 18 Blood Pressure 138/68 127/77 Pulse Oximetry 100 98 02/09/18 21:00 02/09/18 22:00 02/09/18 23:00 Temperature 98.7 F Pulse Rate 80 74 82 Respiratory Rate 18 Blood Pressure 123/67 Pulse Oximetry 98 02/10/18 00:00 02/10/18 01:00 02/10/18 02:00 Temperature Pulse Rate 78 80 76 Respiratory Rate Blood Pressure Pulse Oximetry 02/10/18 03:00 02/10/18 04:00 02/10/18 05:00 Temperature 98.4 F Pulse Rate 80 75 76 Respiratory Rate 18 Blood Pressure 119/67 Pulse Oximetry 97 02/10/18 06:00 Temperature Pulse Rate 77 Respiratory Rate Blood Pressure Pulse Oximetry Intake & Output 02/09/18 02/10/18 02/10/18 18:59 06:59 18:59 Intake Total 720 / 720 360 / 360 Output Total 600 / 600 400 / 400 Balance 120 / 120 -40 / -40 Weight 90.7 kg Intake: Oral 720 / 720 360 / 360 Output: Urine 600 / 600 400 / 400 Other: Date of Last Bowel Movement 02/09/18 # Bowel Movements 0 0 Narrative: GENERAL: Resting in bed, in no acute distress. SKIN: Warm and dry. HEAD: Right periorbital/forehead ecchymosis improving EYES: Pupils equal and round. No scleral icterus. No injection or drainage. NECK: Trachea midline. No JVD. CARDIOVASCULAR: regular RESPIRATORY: No accessory muscle use. GASTROINTESTINAL: Abdomen soft, non-tender, MUSCULOSKELETAL: Extremities without clubbing, cyanosis, or edema. No obvious deformities. Moves all four extremities well. NEUROLOGICAL: Awake and alert. Speech fluent. Pupils equal, gross EOMs intact. Facial motor symmetric. <Amy Dunn - Last Filed: 02/10/18 08:45> Narrative: Mr Miller is alert, awake. Comfortable, in no acute distress. Speech is fluent. Cranial nerve examination: pupils to be equal, round and reactive to light. Extra-ocular movements are intact. Facial motor and sensory function are normal and symmetrical. Gross hearing appears intact. Sternocleidomastoid and trapezius muscles are symmetrical. Other cranial nerves are intact. Neck is soft and supple with a good range of motion without pain. Muscle strength is normal in all muscle groups of both upper and lower extremities. Sensory examination is intact to light touch and pin prick in both the upper and lower extremities. Deep tendon reflexes are symmetrical in both upper and lower extremities. There is a bilateral plantar flexion response. Cerebellar examination is unremarkable, without deficits. Lungs are clear Heart regular rhythm is regular rate Skin warm and dry <Suleiman Montenegro - Last Filed: 02/14/18 17:18> Assessment and Plan - Plan I r Problem List (1) CKD (chronic kidney disease) stage 4, GFR 15-29 ml/min Code(s): N18.4 - Chronic kidney disease, stage 4 (severe) Status: Acute (2) Fall Code(s): W19.XXXA - Unspecified fall, initial encounter Status: Acute (3) Scalp hematoma Code(s): S00.03XA - Contusion of scalp, initial encounter Status: Acute (4) H/O stroke within last year Code(s): Z86.73 - Personal history of transient ischemic attack (TIA), and cerebral infarction without residual deficits Status: Acute (5) TBI (traumatic brain injury) Code(s): S06.9X9A - Unspecified intracranial injury with loss of consciousness of unspecified duration, initial encounter Status: Acute (6) BPH (benign prostatic hyperplasia) Code(s): N40.0 - Benign prostatic hyperplasia without lower urinary tract symptoms Status: Chronic (7) Subconjunctival hemorrhage of right eye Code(s): H11.31 - Conjunctival hemorrhage, right eye Status: Acute (8) H/O malignant neuroendocrine tumor Code(s): Z85.9 - Personal history of malignant neoplasm, unspecified Status: Resolved (9) Thrombocytopenia Code(s): D69.6 - Thrombocytopenia, unspecified Status: Chronic (10) Iron deficiency anemia Code(s): D50.9 - Iron deficiency anemia, unspecified Status: Chronic (11) S/P TAVR (transcatheter aortic valve replacement) Code(s): Z95.2 - Presence of prosthetic heart valve Status: Acute (12) Subarachnoid bleed Code(s): I60.9 - Nontraumatic subarachnoid hemorrhage, unspecified Status: Acute (13) Chronic anticoagulation Code(s): Z79.01 - relationship mgr (current) use of 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 Status: Cervical Spine CT 02/04/18 21:19 CONCLUSION: 1. No evidence of compression deformity or spondylolisthesis. 2. Multilevel discogenic degenerative changes and facet joint hypertrophy. Chest X-Ray 02/04/18 21:19 CONCLUSION: Cardiomegaly and central bronchopulmonary markings indistinctness similar to prior. Face CT 02/04/18 21:19 CONCLUSION: 1. No facial bone fractures seen. 2. Opacified frontal ethmoid and maxillary sinuses with evidence of resorption of nasal and ethmoid septa suggests chronic process. There is, however, an air- fluid level in the right maxillary sinus. Head CT 02/04/18 21:19 CONCLUSION: 1. Evidence of closed head injury with subarachnoid hemorrhage extending from low to high convexity on the right side. There is also a focal parenchymal hemorrhage in the highest convexity left frontal region. 2. Large right parietal scalp hematoma without evidence of skull fracture. 3. Opacified frontal, ethmoid, and maxillary sinuses. Pelvis X-Ray 02/04/18 21:19 CONCLUSION: No gross bony abnormality seen. Abdomen/Bladder Ultrasound 02/05/18 00:00 CONCLUSION: 1. Echogenic kidneys consistent with medical renal disease. No evidence for obstructive uropathy. 2. Bilateral renal cysts with a dominant 7.2 cm cyst in the superior pole of the right kidney. 3. Small amount ascites. 4. Prominent prostate. Head MRI 02/05/18 00:00 CONCLUSION: 1. Traumatic brain injury which includes significant subarachnoid hemorrhage, parenchymal hemorrhage and small subdural hematoma involving the right temporal and occipital lobes. 2. Additional hemorrhage or identified in both frontal lobes and left temporal lobe. 3. Right frontal cephalohematoma 4. No evidence of significant mass effect, intra-axial edema or acute infarct. Note is for 02/09/18, when patient was seen and examined. Assessment: TBI including traumatic subarachnoid hemorrhage neurologically stable Plan: cont neuro checks, mgt per cardiology, clear for pacemaker placement from NRS standpoint <Amy Dunn - Last Filed: 02/10/18 08:45> - Plan (1) CKD (chronic kidney disease) stage 4, GFR 15-29 ml/min Code(s): N18.4 - Chronic kidney disease, stage 4 (severe) Status: Acute (2) Fall Code(s): W19.XXXA - Unspecified fall, initial encounter Status: Acute (3) Scalp hematoma Code(s): S00.03XA - Contusion of scalp, initial encounter Status: Acute (4) H/O stroke within last year Code(s): Z86.73 - Personal history of transient ischemic attack (TIA), and cerebral infarction without residual deficits Status: Acute (5) TBI (traumatic brain injury) Code(s): S06.9X9A - Unspecified intracranial injury with loss of consciousness of unspecified duration, initial encounter Status: Acute (6) BPH (benign prostatic hyperplasia) Code(s): N40.0 - Benign prostatic hyperplasia without lower urinary tract symptoms Status: Chronic (7) Subconjunctival hemorrhage of right eye Code(s): H11.31 - Conjunctival hemorrhage, right eye Status: Acute (8) H/O malignant neuroendocrine tumor Code(s): Z85.9 - Personal history of malignant neoplasm, unspecified Status: Resolved (9) Thrombocytopenia Code(s): D69.6 - Thrombocytopenia, unspecified Status: Chronic (10) Iron deficiency anemia Code(s): D50.9 - Iron deficiency anemia, unspecified Status: Chronic (11) S/P TAVR (transcatheter aortic valve replacement) Code(s): Z95.2 - Presence of prosthetic heart valve Status: Acute (12) Subarachnoid bleed Code(s): I60.9 - Nontraumatic subarachnoid hemorrhage, unspecified Status: Acute (13) Chronic anticoagulation Code(s): Z79.01 - correction (current) use of 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 Status: Cervical Spine CT 02/04/18 21:19 CONCLUSION: 1. No evidence of compression deformity or spondylolisthesis. 2. Multilevel discogenic degenerative changes and facet joint hypertrophy. Chest X-Ray 02/04/18 21:19 CONCLUSION: Cardiomegaly and central bronchopulmonary markings indistinctness similar to prior. Face CT 02/04/18 21:19 CONCLUSION: 1. No facial bone fractures seen. 2. Opacified frontal ethmoid and maxillary sinuses with evidence of resorption of nasal and ethmoid septa suggests chronic process. There is, however, an air- fluid level in the right maxillary sinus. Head CT 02/04/18 21:19 CONCLUSION: 1. Evidence of closed head injury with subarachnoid hemorrhage extending from low to high convexity on the right side. There is also a focal parenchymal hemorrhage in the highest convexity left frontal region. 2. Large right parietal scalp hematoma without evidence of skull fracture. 3. Opacified frontal, ethmoid, and maxillary sinuses. Pelvis X-Ray 02/04/18 21:19 CONCLUSION: No gross bony abnormality seen. Abdomen/Bladder Ultrasound 02/05/18 00:00 CONCLUSION: 1. Echogenic kidneys consistent with medical renal disease. No evidence for obstructive uropathy. 2. Bilateral renal cysts with a dominant 7.2 cm cyst in the superior pole of the right kidney. 3. Small amount ascites. 4. Prominent prostate. Head MRI 02/05/18 00:00 CONCLUSION: 1. Traumatic brain injury which includes significant subarachnoid hemorrhage, parenchymal hemorrhage and small subdural hematoma involving the right temporal and occipital lobes. 2. Additional hemorrhage or identified in both frontal lobes and left temporal lobe. 3. Right frontal cephalohematoma 4. No evidence of significant mass effect, intra-axial edema or acute infarct. Note is for 02/09/18, when patient was seen and examined. Assessment: TBI including traumatic subarachnoid hemorrhage neurologically stable Plan: cont neuro checks, mgt per cardiology, Cleared for pacemaker placement from neurosurgical standpoint The exam, history, and the medical decision-making described in the above note were completed with the assistance of the mid-level provider. I reviewed and agree with the findings presented. I attest that I had a [id number] encounter with the patient on the same day, and personally performed and documented my assessment and findings in the medical record. <Suleiman Montenegro - Last Filed: 02/14/18 17:18>
[2018-02-10] MEDS: Senna/Docusate Sodium 8.6/50 MG Tablet PO SCH ×4 (09:00→20:28)
[2018-02-10] MEDS: Potassium Chloride 25 MEQ Effervescent Tablet PO SCH ×3 (09:00→20:26)
[2018-02-10] MEDS: Pantoprazole Inj 40 MG Vial IV.PUSH SCH (09:04)
--- NOTE | 2018-02-10 09:57 | P.PNNP ---
Subjective Interval history: Moved out of [facility]. Has been evaluated by Dr. Germain. To have PPM placed tomorrow. Pending blood transfusion today. <Mago Acosta - Last Filed: 02/10/18 09:53> Physical Exam Vital signs: Vital Signs 02/09/18 10:00 02/09/18 12:00 02/09/18 14:00 Temperature 98.8 F Pulse Rate 78 80 80 Respiratory Rate 22 Blood Pressure 132/62 Pulse Oximetry 98 02/09/18 16:00 02/09/18 17:56 02/09/18 20:00 Temperature 98.4 F 97.7 F Pulse Rate 76 76 85 Respiratory Rate 20 18 Blood Pressure 138/68 127/77 Pulse Oximetry 100 98 02/09/18 21:00 02/09/18 22:00 02/09/18 23:00 Temperature 98.7 F Pulse Rate 80 74 82 Respiratory Rate 18 Blood Pressure 123/67 Pulse Oximetry 98 02/10/18 00:00 02/10/18 01:00 02/10/18 02:00 Temperature Pulse Rate 78 80 76 Respiratory Rate Blood Pressure Pulse Oximetry 02/10/18 03:00 02/10/18 04:00 02/10/18 05:00 Temperature 98.4 F Pulse Rate 80 75 76 Respiratory Rate 18 Blood Pressure 119/67 Pulse Oximetry 97 02/10/18 06:00 02/10/18 08:00 Temperature 98.2 F Pulse Rate 77 75 Respiratory Rate 18 Blood Pressure 118/67 Pulse Oximetry 98 Intake & Output 02/09/18 02/10/18 02/10/18 18:59 06:59 18:59 Intake Total 720 / 720 360 / 360 Output Total 600 / 600 400 / 400 Balance 120 / 120 -40 / -40 Weight 90.7 kg Intake: Oral 720 / 720 360 / 360 Output: Urine 600 / 600 400 / 400 Other: Date of Last Bowel Movement 02/09/18 # Bowel Movements 0 0 - Constitutional no acute distress, average body habitus - Routine HEENT Exam Head: Present: normocephalic, abrasion, hematoma. Absent: atraumatic Comments: right side facial bruising s/p fall/trauma - Routine Neck Exam Present: supple, full ROM - Routine Respiratory Exam Present: CTA bilaterally. Absent: accessory muscle use - Routine Cardiovascular Exam Present: S1, S2, bradycardia, irregular rhythm, irregularly irregular - Routine Abdominal Exam Present: soft, normoactive bowel sounds - Routine Extremities Exam Present: full ROM, pulses intact. Absent: edema - Routine Skin Exam Present: intact, warm, ecchymosis - Routine Neurological Exam Present: alert, oriented X3, CN II-XII intact - Detailed Neurological Exam: Coma Scale Eye Opening: Spontaneous Verbal Response: Oriented Motor Response: Obey commands Hair Coma Scale Total: 15 - Routine Psychiatric Exam Present: normal affect, normal thought process <Mago Acosta - Last Filed: 02/10/18 09:53> Vital signs: Vital Signs 02/09/18 21:00 02/09/18 22:00 02/09/18 23:00 Temperature 98.7 F Pulse Rate 80 74 82 Respiratory Rate 18 Blood Pressure 123/67 Pulse Oximetry 98 02/10/18 00:00 02/10/18 01:00 02/10/18 02:00 Temperature Pulse Rate 78 80 76 Respiratory Rate Blood Pressure Pulse Oximetry 02/10/18 03:00 02/10/18 04:00 02/10/18 05:00 Temperature 98.4 F Pulse Rate 80 75 76 Respiratory Rate 18 Blood Pressure 119/67 Pulse Oximetry 97 02/10/18 06:00 02/10/18 07:00 02/10/18 08:00 Temperature 98.2 F Pulse Rate 77 74 78 Respiratory Rate 18 Blood Pressure 118/67 Pulse Oximetry 98 02/10/18 09:00 02/10/18 10:00 02/10/18 11:00 Temperature Pulse Rate 76 74 78 Respiratory Rate Blood Pressure Pulse Oximetry 02/10/18 12:00 02/10/18 13:00 02/10/18 14:00 Temperature 98.0 F Pulse Rate 79 74 80 Respiratory Rate 16 Blood Pressure 143/68 H Pulse Oximetry 98 02/10/18 15:00 02/10/18 16:00 02/10/18 16:52 Temperature 98.2 F 97.6 F Pulse Rate 76 78 80 Respiratory Rate 16 18 Blood Pressure 154/69 H 162/86 H Pulse Oximetry 100 99 02/10/18 17:00 02/10/18 18:00 Temperature Pulse Rate 78 79 Respiratory Rate Blood Pressure Pulse Oximetry Intake & Output 07/24/18 07/24/18 07/25/18 06:59 18:59 06:59 Intake Total 360 / 360 240 / 240 Output Total 400 / 400 250 / 250 Balance -40 / -40 -10 / -10 Weight 90.7 kg Intake: Oral 360 / 360 240 / 240 Intake (Blood Product) Amt 0 / 0 Rbc As-3 Leukoreduced Unit 0 / 0 [id number] Output: Urine 400 / 400 250 / 250 Other: Date of Last Bowel Movement 02/10/18 # Bowel Movements 0 2 <Keith Parrish - Last Filed: 02/10/18 20:29> Assessment and Plan - Assessment (1) Acute worsening of stage 3 chronic kidney disease Code(s): N18.3 - Chronic kidney disease, stage 3 (moderate) Status: Acute Plan: Baseline creatinine around 1. MILLI can be due to renal hypoperfusion due to hypotension and recent cardiac dysrhythmias Renal function has remained stable overnight He is non oliguric without a Weber catheter Continue to monitor renal function Obtain AM labs Avoid nephrotoxic agents, dose appropriate to renal status Tolerated PO Fluids. (2) Hypokalemia Code(s): E87.6 - Hypokalemia Status: Acute Plan: Continue to replace potassium if needed (3) Fall Code(s): W19.XXXA - Unspecified fall, initial encounter Status: Acute Plan: Needs PT/OT Also has recently had cardiac pauses, may be the reason for his frequent falls. No fracture on imaging (4) H/O stroke within last year Code(s): Z86.73 - Personal history of transient ischemic attack (TIA), and cerebral infarction without residual deficits Status: Acute Plan: Imaging confirmed Intraventricular bleed in addition to known subarachnoid hemorrhage Neurosurgery following, medical management (5) DM II (diabetes mellitus, type II), controlled Code(s): E11.9 - Type 2 diabetes mellitus without complications Status: Acute Qualifiers: Diabetes mellitus technician terminal and repeater insulin use: with alf use Diabetes mellitus complication status: without complication Qualified Code(s): E11.9 - Type 2 diabetes mellitus without complications; Z79.4 - 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 Germain. Plan for PPM Friday <Mago Acosta - Last Filed: 02/10/18 09:53> - Assessment (1) Acute worsening of stage 3 chronic kidney disease Code(s): N18.3 - Chronic kidney disease, stage 3 (moderate) Status: Acute (2) Hypokalemia Code(s): E87.6 - Hypokalemia Status: Acute (3) Fall Code(s): W19.XXXA - Unspecified fall, initial encounter Status: Acute (4) H/O stroke within last year Code(s): Z86.73 - Personal history of transient ischemic attack (TIA), and cerebral infarction without residual deficits Status: Acute (5) DM II (diabetes mellitus, type II), controlled Code(s): E11.9 - Type 2 diabetes mellitus without complications Status: Acute Qualifiers: Diabetes mellitus technician terminal and repeater insulin use: with alf use Diabetes mellitus complication status: without complication Qualified Code(s): E11.9 - Type 2 diabetes mellitus without complications; Z79.4 - snf (current) use of insulin (6) Sinus pause Code(s): I45.5 - Other specified heart block Status: Acute - Attending Attestation patient was seen and examined. Agree with above assessment and plan. Renal function is stable. <Keith Parrish - Last Filed: 02/10/18 20:29>
--- NOTE | 2018-02-10 09:57 | P.PN ---
Physical Exam Vital signs: Vital Signs 02/09/18 10:00 02/09/18 12:00 02/09/18 14:00 Temperature 98.8 F Pulse Rate 78 80 80 Respiratory Rate 22 Blood Pressure 132/62 Pulse Oximetry 98 02/09/18 16:00 02/09/18 17:56 02/09/18 20:00 Temperature 98.4 F 97.7 F Pulse Rate 76 76 85 Respiratory Rate 20 18 Blood Pressure 138/68 127/77 Pulse Oximetry 100 98 02/09/18 21:00 02/09/18 22:00 02/09/18 23:00 Temperature 98.7 F Pulse Rate 80 74 82 Respiratory Rate 18 Blood Pressure 123/67 Pulse Oximetry 98 02/10/18 00:00 02/10/18 01:00 02/10/18 02:00 Temperature Pulse Rate 78 80 76 Respiratory Rate Blood Pressure Pulse Oximetry 02/10/18 03:00 02/10/18 04:00 02/10/18 05:00 Temperature 98.4 F Pulse Rate 80 75 76 Respiratory Rate 18 Blood Pressure 119/67 Pulse Oximetry 97 02/10/18 06:00 02/10/18 08:00 Temperature 98.2 F Pulse Rate 77 75 Respiratory Rate 18 Blood Pressure 118/67 Pulse Oximetry 98 Intake & Output 02/09/18 02/10/18 02/10/18 18:59 06:59 18:59 Intake Total 720 / 720 360 / 360 Output Total 600 / 600 400 / 400 Balance 120 / 120 -40 / -40 Weight 90.7 kg Intake: Oral 720 / 720 360 / 360 Output: Urine 600 / 600 400 / 400 Other: Date of Last Bowel Movement 02/09/18 # Bowel Movements 0 0 Narrative: Subjective Subjective Remarks/Hospital Course: 87-year-old R hand dominant male with past medical history of TAVR 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 Reportedly he was watching TV and stood up to walk to the bathroom at about 20:10 and fell on a tile floor hitting the right side of his head. His reports brief loss of consciousness. No noted seizure activity. EVAC was called. Vomited x1 during transport. GCS was 14 on arrival. In the ED workup included CT brain which demonstrated R temporoparietal subarachnoid hemorrhage and focal L frontal intraparenchymal hemorrhage. The emergency department physician discussed with Dr. Montenegro who requested Eliquis reversal. Patient's states that he last took Eliquis at 18:00 on 02/04. Of note, patient had a fall and presented in September 2017 with R hemiparesis. He had been on warfarin and initial CT negative. 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 He was felt to have M2 segment stroke. He was not administered TPA due to multiple contraindications. On followup imaging, he was found to have L subarachnoid hemorrhage, small r subdural without shift. He was followed by neurology and neurosurgery; no surgical intervention. states he was discharged home with home therapy and was not noted to have residual weakness. SUBJ 02/05: Lying in bed, patient complains about epistaxis since he woke up an hour ago. His platelet count is 68. I have ordered 1 packed unit of platelets stat, also 1 unit of FFP stat for INR of 1.4. MRI of the brain had been ordered per Dr. Montenegro request. Neurosurgery consult is pending 02/06: Lying in bed no acute distress, epistaxis controlled, right nare has a Rhino Rocket in place. MRI brain yesterday showed subarachnoid hemorrhage, parenchymal hemorrhage and small subdural hematoma involving the right temporal and occipital lobes, also intraparenchymal blood involving frontal lobes and left temporal lobe. 02/07: Patient is more somnolent today lying in bed no discomfort but difficult to arouse. is at the bedside. But once woken up patient is oriented to person and place. Did not receive any sedation. CT of the brain stat ordered again to rule out increasing bleed. Pupils remain equal. Dr. Rush cardiology stated patient had 5 sec pause. He will get EP consult to evaluate for PPM 02/08: Patient is more awake alert today cooperative. No pauses reported overnight. Discussed with Dr. Rush. Plan for permanent pacemaker lead this week. CT of the brain done yesterday shows stable CT with new finding of small amount of intraventricular blood. 02/09: No new problems overnight. Lungs remain clear and he is breathing comfortably while supine. Edema in ankles is much improved as renal function improves as well. Will benefit from permanent pacemaker. 02/10; The aptient is in bed , appears pale. HGB dropped pln to transfuse [address] Germain will postpone PM placement . Advance diet. Patient denies chest pain . However feels weak and has some sob. No lightheadedness No n/v/d/c. Physical exam: GENERAL: Very pleasant male awake and alert. SKIN: Gauze dressing in place over right forearm. HEAD: Normocephalic. Large scalp hematoma overlying R temporal region EYES: R periorbital hematoma. Subconjunctival hemorrhage right lateral bulbar conjunctiva. CARDIOVASCULAR: irregular, irregular. 2/6 systolic murmur left and right sternal border, no JVD. RESPIRATORY: No accessory muscle use. Clear to auscultation. Breath sounds equal bilaterally. GASTROINTESTINAL: Abdomen soft, BS +, non-tender, nondistended. Healed vertical scar upper abdomen. MUSCULOSKELETAL: Extremities without clubbing, cyanosis. Edema 1+ bilateral lower extremities. NEUROLOGICAL: Awake and alert. Oriented to person, place. No pronator drift, no tremor. 5/5 biceps/triceps bilaterally, drawer maker strength is normal bilaterally. Normal lower extremity strength. Assessment and Plan NEURO: TBI with loss of consciousness, s/p fall R temporoparietal subarachnoid hemorrhage in left frontal intraparenchymal hemorrhage, IVH Small subdural hematoma involving the right temporal and occipital lobes. Right scalp hematoma CT of the head stat 02/07-showed stable intracranial bleed, with new finding of small intraventricular hemorrhage Syncope could be cardiac, see CVS CT maxillofacial is negative for acute fracture. Acute epistaxis, now well controlled after Rhino Rocket and platelet transfusion. Remove Rhino Rocket today CT C-spinenegative for fracture CT brain 02/04 with traumatic SAH. Not currently candidate for CTA due to renal dysfunction. Prior CTA 10/09/17 negative for vascular malformation or aneurysm ( L carotid occlusion noted) Cardene if needed to maintain SBP <150. Keppra not currently indicated based on mild TBI by GCS criteria. Holding Eliquis, s/p Kcentra as per below. Neurosurgery Dr. Montenegro RESP: Prior history of tobacco abuse IS q 1 hour awake CV: Cardiac syncope ([address] Rush) HTN Atrial fibrillation on chronic anti-coagulation with Eliquis History of aortic stenosis now status post TAVR 08/2017. Appreciate cardiology consult by Dr. Rush Loop recorder showing a 5-second pause, and 2 bradycardic episodes on 2017. Pacemaker placement with EP this week Cardene as needed to maintain systolic blood pressure less than 150 Hold Eliquis and ASA due to ICH. Holding statin, metoprolol, lasix and metolazone for now. GI: GERD Protonix for stress ulcer prophylaxis and history of GERD. Diet per speech recommendation FEN/RENAL: BPH s/p TUMT CKD stage IIIb-IV Acute hypokalemia states he has been referred to Dr. Kamila Jha but hasn't followed up yet. Nephro Dr. Parrish following here Renal u/s, place lópez if e/o obstruction. Holding tamulosin, finasteride until able to take po. Has been on Lasix and metolazone for edema. Continue to hold for now ID: Monitor for signs and symptoms of infection HEME: History of neuroendocrine tumor status post small bowel resection in 2014 Chronic iron deficiency anemia Chronic thrombocytopenia He has been followed by Dr. Adan Cee as an outpatient for above, follow PET scans have shown no residual disease. Resume iron supplementation, B6, folic acid if passes swallow eval. ENDO: Diabetes mellitus Holding detemir. Monitor glucose AC/at bedtime and initiate medium dose insulin sliding scale as indicated PROPH: SCDs for DVT prophylaxis. He has chronically been on Eliquis which is on hold but pharmacologic DVT prophylaxis is contraindicated due to subarachnoid hemorrhage. Protonix for stress ulcer prophylaxis ACCESS: Peripheral IV providing adequate access at this time Patient is critically ill with TBI including traumatic subarachnoid hemorrhage in need of urgent reversal anticoagulation to decrease chance of expansion of hemorrhage. Discussed with Dr. Montenegro and [facility]. Patient is of advanced age and has undergone successful TAVR, however his subsequent course has been complicated by readmission for sepsis, ischemic stroke with fall and subsequent SAH and SDH, now additional fall and SAH. He has known left carotid occlusion and A fib which place him at risk for embolic stroke, though obviously with hemorrhage while on anticoagulation. He is at risk for further complication, PPM poss 02/11/18. Transfuse 2 UPRBC on as patient with anemia. Discussed with the patient, nurse, family - at bedside, Dr Marcellus EP cardiology DC plan pending improvement 2U PRBC transfusion 02/10/18. Plan for PPM placement poss 02/11/18bby Dr Germain Consult PT /OT likely will need rehab Results - Labs CBC & Chem 7: 02/09/18 05:45 02/10/18 05:19 Laboratory Results - last 24 hr 02/09/18 02/09/18 02/09/18 11:41 16:31 20:59 Sodium Potassium Chloride Carbon Dioxide Anion Gap BUN Creatinine Estimated GFR POC Glucose 158 H 204 H 182 H Random Glucose Calcium 02/10/18 02/10/18 05:19 07:55 Sodium 139 Potassium 4.1 Chloride 100 Carbon Dioxide 30.7 Anion Gap 8 BUN 39 H Creatinine 1.78 H Estimated GFR 36 L POC Glucose 122 H Random Glucose 122 H Calcium 8.4 L
[2018-02-10] MEDS ORDERED: Acetaminophen 325 MG Tablet PO PRN (09:58)
[2018-02-10] MEDS ORDERED: Sodium Chlor 0.9% Inj 250 ML IV.SIG SCH (10:00)
[2018-02-11 06:13] LABS: Calcium 8.5 mg/dL (8.5-10.1); Carbon Dioxide 29.3 meq/L (21.0-32.0); Potassium 3.9 meq/L (3.5-5.1)
[2018-02-11] MEDS: Insulin NovoLOG Aspart Correctional Sugar Inj SQ SCH ×4 (08:37→22:16)
[2018-02-11] MEDS: Pantoprazole Inj 40 MG Vial IV.PUSH SCH (08:43)
[2018-02-11] MEDS: Senna/Docusate Sodium 8.6/50 MG Tablet PO SCH ×2 (08:45→22:16)
[2018-02-11] MEDS: Potassium Chloride 25 MEQ Effervescent Tablet PO SCH ×2 (09:44→20:20)
[2018-02-11 11:22] LABS: Baso % (Auto) 1.1 % (0.0-2.0); Eos # (Auto) 0.1 th/mm3 (0.0-0.4); Eos % (Auto) 2.1 % (0.0-4.0); Hemoglobin 10.7 gm/dL (13.0-17.0); Lymph # (Auto) 0.2 th/mm3 (1.0-4.8); Mean Corpuscular HGB Conc 33.6 % (32.0-36.0); Mean Corpuscular Hemoglobin 31.8 pg (27.0-34.0); Mean Corpuscular Volume 94.8 fL (80.0-100.0); Mono # (Auto) 0.3 th/mm3 (0.0-0.9); Mono % (Auto) 9.6 % (0.0-8.0); Neut # (Auto) 2.7 th/mm3 (1.8-7.7); Neut % (Auto) 81.2 % (16.0-70.0); Platelet Count 64 th/mm3 (150-450); Red Blood Count 3.37 mil/mm3 (4.50-5.90); Red Cell Distribution Width 16.4 % (11.6-17.2); White Blood Count 3.3 th/mm3 (4.0-11.0)
[2018-02-11 12:10] LABS: Acanthocytes Occ; Ovalocytes 1+; Platelet Morphology Normal (Normal)
--- NOTE | 2018-02-11 13:27 | P.PNNP ---
Subjective Interval history: NPO for PPM placement today. Renal function is stable. <Mago Acosta - Last Filed: 02/11/18 13:23> Physical Exam Vital signs: Vital Signs 02/10/18 14:00 02/10/18 15:00 02/10/18 16:00 Temperature 98.2 F Pulse Rate 80 76 78 Respiratory Rate 16 Blood Pressure 154/69 H Pulse Oximetry 100 02/10/18 16:52 02/10/18 17:00 02/10/18 18:00 Temperature 97.6 F Pulse Rate 80 78 79 Respiratory Rate 18 Blood Pressure 162/86 H Pulse Oximetry 99 02/10/18 19:00 02/10/18 20:00 02/10/18 21:00 Temperature 97.6 F Pulse Rate 79 80 78 Respiratory Rate 20 Blood Pressure 138/72 Pulse Oximetry 100 02/10/18 22:00 02/10/18 23:00 02/10/18 23:11 Temperature 98.5 F Pulse Rate 80 73 79 Respiratory Rate 18 Blood Pressure 142/83 H Pulse Oximetry 97 02/10/18 23:20 02/10/18 23:25 02/10/18 23:30 Temperature Pulse Rate 80 83 78 Respiratory Rate 18 18 18 Blood Pressure 142/74 H 146/83 H 129/76 Pulse Oximetry 95 95 95 02/11/18 00:00 02/11/18 01:00 02/11/18 02:00 Temperature 98.5 F Pulse Rate 79 80 78 Respiratory Rate 18 Blood Pressure 138/76 Pulse Oximetry 97 02/11/18 03:00 02/11/18 04:00 02/11/18 05:00 Temperature 98.4 F Pulse Rate 66 80 68 Respiratory Rate 18 Blood Pressure 146/88 H Pulse Oximetry 97 02/11/18 06:00 02/11/18 07:00 02/11/18 08:00 Temperature 98.1 F Pulse Rate 75 66 80 Respiratory Rate 17 Blood Pressure 129/67 Pulse Oximetry 98 02/11/18 09:00 02/11/18 10:00 02/11/18 11:00 Temperature Pulse Rate 78 74 77 Respiratory Rate Blood Pressure Pulse Oximetry 02/11/18 12:00 Temperature 98.1 F Pulse Rate 78 Respiratory Rate 16 Blood Pressure 124/68 Pulse Oximetry 99 Intake & Output 02/10/18 02/11/18 02/11/18 18:59 06:59 18:59 Intake Total 240 / 240 1040 / 1040 Output Total 250 / 250 550 / 550 151 / 151 Balance -10 / -10 490 / 490 -151 / -151 Weight 90.9 kg Intake: Oral 240 / 240 240 / 240 Intake (Blood Product) Amt 0 / 0 800 / 800 Rbc As-3 Leukoreduced Unit 400 / 400 [id number] Rbc As-3 Leukoreduced Unit 0 / 0 400 / 400 [id number] Output: Urine 250 / 250 550 / 550 150 / 150 Stool Other: Date of Last Bowel Movement 02/10/18 02/10/18 02/10/18 # Bowel Movements 2 - Constitutional no acute distress - Routine HEENT Exam Head: Present: normocephalic, abrasion, hematoma. Absent: atraumatic Eye: Present: EOMI - Routine Neck Exam Present: supple, full ROM. Absent: JVD - Routine Respiratory Exam Present: CTA bilaterally. Absent: accessory muscle use - Routine Cardiovascular Exam Present: S1, S2, irregular rhythm, irregularly irregular - Routine Abdominal Exam Present: soft, normoactive bowel sounds - Routine Extremities Exam Present: full ROM, pulses intact, normal capillary refill. Absent: edema - Routine Skin Exam Present: intact, dry, warm - Routine Neurological Exam Present: alert, oriented X3, CN II-XII intact - Detailed Neurological Exam: Coma Scale Eye Opening: Spontaneous Verbal Response: Oriented Motor Response: Obey commands Hair Coma Scale Total: 15 - Routine Psychiatric Exam Present: normal affect, normal thought process <Mago Acosta - Last Filed: 02/11/18 13:23> Vital signs: Vital Signs 02/10/18 20:00 02/10/18 21:00 02/10/18 22:00 Temperature 97.6 F Pulse Rate 80 78 80 Respiratory Rate 20 Blood Pressure 138/72 Pulse Oximetry 100 02/10/18 23:00 02/10/18 23:11 02/10/18 23:20 Temperature 98.5 F Pulse Rate 73 79 80 Respiratory Rate 18 18 Blood Pressure 142/83 H 142/74 H Pulse Oximetry 97 95 02/10/18 23:25 02/10/18 23:30 02/11/18 00:00 Temperature 98.5 F Pulse Rate 83 78 79 Respiratory Rate 18 18 18 Blood Pressure 146/83 H 129/76 138/76 Pulse Oximetry 95 95 97 02/11/18 01:00 02/11/18 02:00 02/11/18 03:00 Temperature Pulse Rate 80 78 66 Respiratory Rate Blood Pressure Pulse Oximetry 02/11/18 04:00 02/11/18 05:00 02/11/18 06:00 Temperature 98.4 F Pulse Rate 80 68 75 Respiratory Rate 18 Blood Pressure 146/88 H Pulse Oximetry 97 02/11/18 07:00 02/11/18 08:00 02/11/18 09:00 Temperature 98.1 F Pulse Rate 66 80 78 Respiratory Rate 17 Blood Pressure 129/67 Pulse Oximetry 98 02/11/18 10:00 02/11/18 11:00 02/11/18 12:00 Temperature 98.1 F Pulse Rate 74 77 78 Respiratory Rate 16 Blood Pressure 124/68 Pulse Oximetry 99 02/11/18 13:00 02/11/18 14:00 02/11/18 15:00 Temperature Pulse Rate 74 74 74 Respiratory Rate Blood Pressure Pulse Oximetry 02/11/18 16:00 02/11/18 17:00 Temperature 98.0 F Pulse Rate 72 73 Respiratory Rate 15 Blood Pressure 156/80 H Pulse Oximetry 98 Intake & Output 02/11/18 02/11/18 02/12/18 06:59 18:59 06:59 Intake Total 1040 / 1040 Output Total 550 / 550 401 / 401 Balance 490 / 490 -401 / -401 Weight 90.9 kg Intake: Oral 240 / 240 Intake (Blood Product) Amt 800 / 800 Rbc As-3 Leukoreduced Unit 400 / 400 [id number] Rbc As-3 Leukoreduced Unit 400 / 400 [id number] Output: Urine 550 / 550 400 / 400 Stool Other: # Voids 3 Date of Last Bowel Movement 02/10/18 02/10/18 <Keith Parrish - Last Filed: 02/11/18 19:54> Assessment and Plan - Assessment (1) Acute worsening of stage 3 chronic kidney disease Code(s): N18.3 - Chronic kidney disease, stage 3 (moderate) Status: Acute Plan: Baseline creatinine around 1. MILLI most likely due to renal hypoperfusion secondary to hypotension and recent cardiac dysrhythmias Renal function has remained stable; this may be his new baseline. He is non oliguric Continue to monitor renal function Avoid nephrotoxic agents, dose appropriate to renal status Tolerating PO Fluids. (2) Hypokalemia Code(s): E87.6 - Hypokalemia Status: Acute Plan: Continue to replace potassium if needed (3) Fall Code(s): W19.XXXA - Unspecified fall, initial encounter Status: Acute Plan: Needs PT/OT Also has recently had cardiac pauses, may be the reason for his frequent falls. No fracture on imaging (4) H/O stroke within last year Code(s): Z86.73 - Personal history of transient ischemic attack (TIA), and cerebral infarction without residual deficits Status: Acute Plan: Imaging confirmed Intraventricular bleed in addition to known subarachnoid hemorrhage Neurosurgery following, medical management (5) DM II (diabetes mellitus, type II), controlled Code(s): E11.9 - Type 2 diabetes mellitus without complications Status: Acute Qualifiers: Diabetes mellitus manager terminal insulin use: with manager terminal use Diabetes mellitus complication status: without complication Qualified Code(s): E11.9 - Type 2 diabetes mellitus without complications; Z79.4 - residential (current) use of insulin Plan: Maintain glucose 140-180mg/dL while admitted (6) Sinus pause Code(s): I45.5 - Other specified heart block Status: Acute Plan: Cardiology has evaluated in addition to Dr. Germain. Plan for PPM placement today. - Plan We will sign off at this time. Please call us if needed. We plan to see him in CKD clinic next month. <Mago Acosta - Last Filed: 02/11/18 13:23> - Assessment (1) Acute worsening of stage 3 chronic kidney disease Code(s): N18.3 - Chronic kidney disease, stage 3 (moderate) Status: Acute (2) Hypokalemia Code(s): E87.6 - Hypokalemia Status: Acute (3) Fall Code(s): W19.XXXA - Unspecified fall, initial encounter Status: Acute (4) H/O stroke within last year Code(s): Z86.73 - Personal history of transient ischemic attack (TIA), and cerebral infarction without residual deficits Status: Acute (5) DM II (diabetes mellitus, type II), controlled Code(s): E11.9 - Type 2 diabetes mellitus without complications Status: Acute Qualifiers: Diabetes mellitus fdc insulin use: with manager terminal use Diabetes mellitus complication status: without complication Qualified Code(s): E11.9 - Type 2 diabetes mellitus without complications; Z79.4 - residential (current) use of insulin (6) Sinus pause Code(s): I45.5 - Other specified heart block Status: Acute - Attending Attestation patient was seen and examined. Agree with above assessment and plan. <Keith Parrish - Last Filed: 02/11/18 19:54>
--- NOTE | 2018-02-11 14:25 | P.PN ---
Physical Exam Vital signs: Vital Signs 02/10/18 15:00 02/10/18 16:00 02/10/18 16:52 Temperature 98.2 F 97.6 F Pulse Rate 76 78 80 Respiratory Rate 16 18 Blood Pressure 154/69 H 162/86 H Pulse Oximetry 100 99 02/10/18 17:00 02/10/18 18:00 02/10/18 19:00 Temperature Pulse Rate 78 79 79 Respiratory Rate Blood Pressure Pulse Oximetry 02/10/18 20:00 02/10/18 21:00 02/10/18 22:00 Temperature 97.6 F Pulse Rate 80 78 80 Respiratory Rate 20 Blood Pressure 138/72 Pulse Oximetry 100 02/10/18 23:00 02/10/18 23:11 02/10/18 23:20 Temperature 98.5 F Pulse Rate 73 79 80 Respiratory Rate 18 18 Blood Pressure 142/83 H 142/74 H Pulse Oximetry 97 95 02/10/18 23:25 02/10/18 23:30 02/11/18 00:00 Temperature 98.5 F Pulse Rate 83 78 79 Respiratory Rate 18 18 18 Blood Pressure 146/83 H 129/76 138/76 Pulse Oximetry 95 95 97 02/11/18 01:00 02/11/18 02:00 02/11/18 03:00 Temperature Pulse Rate 80 78 66 Respiratory Rate Blood Pressure Pulse Oximetry 02/11/18 04:00 02/11/18 05:00 02/11/18 06:00 Temperature 98.4 F Pulse Rate 80 68 75 Respiratory Rate 18 Blood Pressure 146/88 H Pulse Oximetry 97 02/11/18 07:00 02/11/18 08:00 02/11/18 09:00 Temperature 98.1 F Pulse Rate 66 80 78 Respiratory Rate 17 Blood Pressure 129/67 Pulse Oximetry 98 02/11/18 10:00 02/11/18 11:00 02/11/18 12:00 Temperature 98.1 F Pulse Rate 74 77 78 Respiratory Rate 16 Blood Pressure 124/68 Pulse Oximetry 99 Intake & Output 02/10/18 02/11/18 02/11/18 18:59 06:59 18:59 Intake Total 240 / 240 1040 / 1040 Output Total 250 / 250 550 / 550 151 / 151 Balance -10 / -10 490 / 490 -151 / -151 Weight 90.9 kg Intake: Oral 240 / 240 240 / 240 Intake (Blood Product) Amt 0 / 0 800 / 800 Rbc As-3 Leukoreduced Unit 400 / 400 [id number] Rbc As-3 Leukoreduced Unit 0 / 0 400 / 400 [id number] Output: Urine 250 / 250 550 / 550 150 / 150 Stool Other: Date of Last Bowel Movement 02/10/18 02/10/18 02/10/18 # Bowel Movements 2 Narrative: Subjective Subjective Remarks/Hospital Course: 87-year-old R hand dominant male with past medical history 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 Reportedly he was watching TV and stood up to walk to the bathroom at about 20:10 and fell on a tile floor hitting the right side of his head. His reports brief loss of consciousness. No noted seizure activity. [facility] was called. Vomited x1 during transport. GCS was 14 on arrival. In the ED workup included CT brain which demonstrated R temporoparietal subarachnoid hemorrhage and focal L frontal intraparenchymal hemorrhage. The emergency department physician discussed with Dr. Montenegro who requested Eliquis reversal. Patient's states that he last took Eliquis at 18:00 on 02/04. Of note, patient had a fall and presented in September 2017 with R hemiparesis. He had been on warfarin and initial CT negative. 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 He was felt to have M2 segment stroke. He was not administered TPA due to multiple contraindications. On followup imaging, he was found to have L subarachnoid hemorrhage, small r subdural without shift. He was followed by neurology and neurosurgery; no surgical intervention. states he was discharged home with home therapy and was not noted to have residual weakness. SUBJ 02/05: Lying in bed, patient complains about epistaxis since he woke up an hour ago. His platelet count is 68. I have ordered 1 packed unit of platelets stat, also 1 unit of FFP stat for INR of 1.4. MRI of the brain had been ordered per Dr. Montenegro request. Neurosurgery consult is pending 02/06: Lying in bed no acute distress, epistaxis controlled, right nare has a Rhino Rocket in place. MRI brain yesterday showed subarachnoid hemorrhage, parenchymal hemorrhage and small subdural hematoma involving the right temporal and occipital lobes, also intraparenchymal blood involving frontal lobes and left temporal lobe. 02/07: Patient is more somnolent today lying in bed no discomfort but difficult to arouse. is at the bedside. But once woken up patient is oriented to person and place. Did not receive any sedation. CT of the brain stat ordered again to rule out increasing bleed. Pupils remain equal. Dr. Rush cardiology stated patient had 5 sec pause. He will get EP consult to evaluate for PPM 02/08: Patient is more awake alert today cooperative. No pauses reported overnight. Discussed with Dr. Rush. Plan for permanent pacemaker lead this week. CT of the brain done yesterday shows stable CT with new finding of small amount of intraventricular blood. 02/09: No new problems overnight. Lungs remain clear and he is breathing comfortably while supine. Edema in ankles is much improved as renal function improves as well. Will benefit from permanent pacemaker. 02/10; The aptient is in bed , appears pale. HGB dropped pln to transfuse [address] Germain will postpone PM placement . Advance diet. Patient denies chest pain . However feels weak and has some sob. No lightheadedness No n/v/d/c. 02/11/18 Feels improving. With bilateral arm wounds/tears skin. consulted wound care continue per protoco Physical exam: GENERAL: Very pleasant male awake and alert. SKIN: Gauze dressing in place over right forearm. HEAD: Normocephalic. Large scalp hematoma overlying R temporal region EYES: R periorbital hematoma. Subconjunctival hemorrhage right lateral bulbar conjunctiva. CARDIOVASCULAR: irregular, irregular. 2/6 systolic murmur left and right sternal border, no JVD. RESPIRATORY: No accessory muscle use. Clear to auscultation. Breath sounds equal bilaterally. GASTROINTESTINAL: Abdomen soft, BS +, non-tender, nondistended. Healed vertical scar upper abdomen. MUSCULOSKELETAL: Extremities without clubbing, cyanosis. Edema 1+ bilateral lower extremities. NEUROLOGICAL: Awake and alert. Oriented to person, place. No pronator drift, no tremor. 5/5 biceps/triceps bilaterally, weight calculator strength is normal bilaterally. Normal lower extremity strength. Assessment and Plan NEURO: TBI with loss of consciousness, s/p fall R temporoparietal subarachnoid hemorrhage in left frontal intraparenchymal hemorrhage, IVH Small subdural hematoma involving the right temporal and occipital lobes. Right scalp hematoma CT of the head stat 02/07-showed stable intracranial bleed, with new finding of small intraventricular hemorrhage Syncope could be cardiac, see CVS CT maxillofacial is negative for acute fracture. Acute epistaxis, now well controlled after Rhino Rocket and platelet transfusion. Remove Rhino Rocket today CT C-spinenegative for fracture CT brain 02/04 with traumatic SAH. Not currently candidate for CTA due to renal dysfunction. Prior CTA 10/09/17 negative for vascular malformation or aneurysm ( L carotid occlusion noted) Cardene if needed to maintain SBP <150. Keppra not currently indicated based on mild TBI by GCS criteria. Holding Eliquis, s/p Kcentra as per below. Neurosurgery Dr. Montenegro RESP: Prior history of tobacco abuse IS q 1 hour awake CV: Cardiac syncope ([address] Rush) HTN Atrial fibrillation on chronic anti-coagulation with Eliquis History of aortic stenosis now status post TAVR 08/2017. Appreciate cardiology consult by Dr. Rush Loop recorder showing a 5-second pause, and 2 bradycardic episodes on 2017. Pacemaker placement with EP this week Cardene as needed to maintain systolic blood pressure less than 150 Hold Eliquis and ASA due to ICH. Holding statin, metoprolol, lasix and metolazone for now. GI: GERD Protonix for stress ulcer prophylaxis and history of GERD. Diet per speech recommendation FEN/RENAL: BPH s/p TUMT CKD stage IIIb-IV Acute hypokalemia states he has been referred to Dr. Kamila Jha but hasn't followed up yet. Nephro Dr. Parrish following here Renal u/s, place lópez if e/o obstruction. Holding tamulosin, finasteride until able to take po. Has been on Lasix and metolazone for edema. Continue to hold for now ID: Monitor for signs and symptoms of infection HEME: History of neuroendocrine tumor status post small bowel resection in 2014 Chronic iron deficiency anemia Chronic thrombocytopenia He has been followed by Dr. Adan Cee as an outpatient for above, follow PET scans have shown no residual disease. Resume iron supplementation, B6, folic acid if passes swallow eval. ENDO: Diabetes mellitus Holding detemir. Monitor glucose AC/at bedtime and initiate medium dose insulin sliding scale as indicated PROPH: SCDs for DVT prophylaxis. He has chronically been on Eliquis which is on hold but pharmacologic DVT prophylaxis is contraindicated due to subarachnoid hemorrhage. Protonix for stress ulcer prophylaxis ACCESS: Peripheral IV providing adequate access at this time Patient is critically ill with TBI including traumatic subarachnoid hemorrhage in need of urgent reversal anticoagulation to decrease chance of expansion of hemorrhage. Discussed with Dr. Montenegro and RE[facility] FIXER. Patient is of advanced age and has undergone successful TAVR, however his subsequent course has been complicated by readmission for sepsis, ischemic stroke with fall and subsequent SAH and SDH, now additional fall and SAH. He has known left carotid occlusion and A fib which place him at risk for embolic stroke, though obviously with hemorrhage while on anticoagulation. He is at risk for further complication, PPM poss 02/11/18. Transfuse 2 UPRBC on as patient with anemia. Discussed with the patient, nurse, family - at bedside, Dr Germain EP cardiology DC plan pending improvement 2U PRBC transfusion 02/10/18. H/H stable Going for PPM placement 02/11/[address] Germain Consult PT /OT likely will need rehab patient prefers to go [facility] Results - Labs CBC & Chem 7: 02/11/18 11:00 02/11/18 05:19 Laboratory Results - last 24 hr 02/10/18 02/10/18 02/10/18 11:52 16:05 20:25 WBC RBC Hgb Hct MCV MCH MCHC RDW Plt Count MPV Prelim Diff (Auto) Neut % (Auto) Lymph % (Auto) [place] % (Auto) Eos % (Auto) Baso % (Auto) Neut # (Auto) Lymph # (Auto) [place] # (Auto) Eos # (Auto) Baso # (Auto) WBC Differential Diff Scan Differential Comment Platelet Estimate Platelet Morphology Ovalocytes Acanthocytes (Spur) Sodium Potassium Chloride Carbon Dioxide Anion Gap BUN Creatinine Estimated GFR POC Glucose 205 H 174 H Random Glucose Calcium Blood Type A Positive Antibody Screen Negative MTS Gel Crossmatch See Detail 02/11/18 02/11/18 02/11/18 05:19 07:43 11:00 WBC 3.3 L RBC 3.37 L Hgb 10.7 L Hct 32.0 L MCV 94.8 D MCH 31.8 MCHC 33.6 RDW 16.4 Plt Count 64 L MPV 10.0 Prelim Diff (Auto) Slide review pending Neut % (Auto) 81.2 H Lymph % (Auto) 6.0 L [place] % (Auto) 9.6 H Eos % (Auto) 2.1 Baso % (Auto) 1.1 Neut # (Auto) 2.7 Lymph # (Auto) 0.2 L [place] # (Auto) 0.3 Eos # (Auto) 0.1 Baso # (Auto) 0.0 WBC Differential . Diff Scan Auto diff confirmed Differential Comment . Platelet Estimate Low L Platelet Morphology Normal Ovalocytes 1+ H Acanthocytes (Spur) Occ H Sodium 140 Potassium 3.9 Chloride 100 Carbon Dioxide 29.3 Anion Gap 11 BUN 37 H Creatinine 1.80 H Estimated GFR 36 L POC Glucose 106 Random Glucose 103 Calcium 8.5 Blood Type Antibody Screen MTS Gel Crossmatch 02/11/18 13:00 WBC RBC Hgb Hct MCV MCH MCHC RDW Plt Count MPV Prelim Diff (Auto) Neut % (Auto) Lymph % (Auto) [place] % (Auto) Eos % (Auto) Baso % (Auto) Neut # (Auto) Lymph # (Auto) [place] # (Auto) Eos # (Auto) Baso # (Auto) WBC Differential Diff Scan Differential Comment Platelet Estimate Platelet Morphology Ovalocytes Acanthocytes (Spur) Sodium Potassium Chloride Carbon Dioxide Anion Gap BUN Creatinine Estimated GFR POC Glucose 113 H Random Glucose Calcium Blood Type Antibody Screen MTS Gel Crossmatch
--- NOTE | 2018-02-11 15:07 | P.PNWCN ---
Wound Care Nurse Consult Description: Consult for Wound Management of bilat arms per Dr Concepcion Communicated with: RN Recommendation: Tegaderms that were placed on patients skin tears previously are to remain in place for the entire 7 days per dressing instructions. Patient to be reassessed on Friday02/13/18 for removal of absorbant tegaderms per protocol. Skin tear protocols are as follows: 1. Gently cleanse skin tears with NS and gauze. 2. Approximate edges with NS and cotton tipped applicator. 3. Apply Versatel One dressing over skin tear. 4. Cover Versatel One with 4x4 gauze and secure with rolled gauze. You may change the outer dressing of 4x4's and rolled gauze as needed with Versatel One staying in place for 7 days. Additional information: Patient seen on for skin tears to bilateral arms. Protocols are in place for skin tears.
[2018-02-11] MEDS ORDERED: hydrALAZINE 25 MG Tablet PO ONE (17:00)
[2018-02-11] MEDS ORDERED: Heparin 10,000 UNITS/10 ML Vial (for IV use) ONE (17:55)
[2018-02-11] MEDS ORDERED: Heparin/NS PF Inj 1,000 ML ONE (18:19)
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
--- NOTE | 2018-02-11 19:46 | ECG ---
Date Performed: 02/11/2018 Time Performed: 19:27:03 PTAGE: 87 years EKG: ATRIAL FIBRILLATION LOW QRS VOLTAGE MODERATE INTRAVENTRICULAR CONDUCTION DELAY ABNORMAL ECG I see no definite changes although prior EKG has lead V3 missing. PREVIOUS TRACING : 02/04/2018 21.24 DOCTOR: Michele Hoffman Interpretating Date/Time 02/11/2018 19:45:37
[2018-02-11] MEDS ORDERED: ALPRAZolam 0.25 MG Tablet PO ONE (22:47)
[2018-02-12 04:51] LABS: Baso % (Auto) 1.3 % (0.0-2.0); Eos # (Auto) 0.1 th/mm3 (0.0-0.4); Hematocrit 30.5 % (39.0-51.0); Hemoglobin 10.1 gm/dL (13.0-17.0); Lymph # (Auto) 0.2 th/mm3 (1.0-4.8); Lymph % (Auto) 6.2 % (9.0-44.0); Mean Corpuscular HGB Conc 33.1 % (32.0-36.0); Mean Corpuscular Hemoglobin 31.8 pg (27.0-34.0); Mean Corpuscular Volume 95.9 fL (80.0-100.0); Mean Platelet Volume 10.5 fL (7.0-11.0); Mono # (Auto) 0.4 th/mm3 (0.0-0.9); Mono % (Auto) 10.2 % (0.0-8.0); Neut # (Auto) 2.9 th/mm3 (1.8-7.7); Neut % (Auto) 80.3 % (16.0-70.0); Platelet Count 72 th/mm3 (150-450); Red Blood Count 3.18 mil/mm3 (4.50-5.90); Red Cell Distribution Width 16.4 % (11.6-17.2); White Blood Count 3.7 th/mm3 (4.0-11.0)
[2018-02-12 05:12] LABS: Calcium 8.6 mg/dL (8.5-10.1); Carbon Dioxide 28.1 meq/L (21.0-32.0); Potassium 4.2 meq/L (3.5-5.1)
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
[2018-02-12 06:31] LABS: Ovalocytes 1+; Platelet Morphology Normal (Normal)
[2018-02-12 06:33] LABS: Acanthocytes Occ; Polychromasia 2.1 % (0.0-1.9)
--- NOTE | 2018-02-12 07:28 | ECG ---
Date Performed: 02/12/2018 Time Performed: 04:12:38 PTAGE: 87 years EKG: Atrial fibrillation. Poor R wave progression - probable normal variant Extensive ST-T rogel es are nonspecific Generalized low QRS voltages Abnormal ECG No significant change from prior electro cardiogram. DOCTOR: Michele Hoffman Interpretating Date/Time 02/12/2018 07:28:15
--- NOTE | 2018-02-12 08:46 | P.PNCA ---
Subjective Interval history: Feeling better today. Physical Exam Vital signs: Vital Signs 02/11/18 09:00 02/11/18 10:00 02/11/18 11:00 Temperature Pulse Rate 78 74 77 Respiratory Rate Blood Pressure Pulse Oximetry 02/11/18 12:00 02/11/18 13:00 02/11/18 14:00 Temperature 98.1 F Pulse Rate 78 74 74 Respiratory Rate 16 Blood Pressure 124/68 Pulse Oximetry 99 02/11/18 15:00 02/11/18 16:00 02/11/18 17:00 Temperature 98.0 F Pulse Rate 74 72 73 Respiratory Rate 15 Blood Pressure 156/80 H Pulse Oximetry 98 02/11/18 19:21 02/11/18 19:30 02/11/18 19:45 Temperature 98.6 F 98.6 F 98.6 F Pulse Rate 77 78 79 Respiratory Rate 22 21 18 Blood Pressure 138/66 153/67 H 140/67 Pulse Oximetry 100 99 100 02/11/18 20:00 02/11/18 21:00 02/11/18 22:00 Temperature Pulse Rate 80 82 78 Respiratory Rate Blood Pressure Pulse Oximetry 02/11/18 22:51 02/11/18 23:00 02/12/18 00:00 Temperature 98.1 F Pulse Rate 79 76 76 Respiratory Rate 18 Blood Pressure 144/78 H Pulse Oximetry 97 02/12/18 01:00 02/12/18 02:00 02/12/18 03:00 Temperature 98.1 F Pulse Rate 72 78 76 Respiratory Rate 20 Blood Pressure 143/76 H Pulse Oximetry 93 L 02/12/18 04:00 02/12/18 05:00 02/12/18 06:00 Temperature Pulse Rate 80 74 75 Respiratory Rate Blood Pressure Pulse Oximetry 02/12/18 07:00 02/12/18 08:00 Temperature 98.1 F Pulse Rate 78 78 Respiratory Rate 18 Blood Pressure 146/73 H Pulse Oximetry 100 Intake & Output 02/11/18 02/12/18 02/12/18 18:59 06:59 18:59 Intake Total 720 / 720 Output Total 401 / 401 325 / 325 Balance -401 / -401 395 / 395 Weight 200 lb 2.876 oz Intake: Oral 720 / 720 Output: Urine 400 / 400 325 / 325 Stool 1 / 1 Other: # Voids 3 Date of Last Bowel Movement 02/10/18 02/10/18 02/10/18 - Constitutional no acute distress - Routine HEENT Exam Head: Present: normocephalic (Multiple right-sided bruises, fading.) ENT: Present: mucous membranes moist - Routine Neck Exam Present: supple - Routine Respiratory Exam Present: CTA bilaterally - Routine Cardiovascular Exam Present: RRR - Routine Abdominal Exam Present: soft - Routine Skin Exam Comments: Right groin site soft without bruising or bleeding status post suture removal. - Routine Neurological Exam Present: alert, oriented X3 - Routine Psychiatric Exam Present: normal affect Assessment and Plan - Assessment (1) Sinus pause Code(s): I45.5 - Other specified heart block Status: Acute - Plan Stable status post implantation of Micra pacemaker. Right groin site soft, stable. Can be discharged at the discretion of the primary managing team from an EP standpoint, per my discussion with Dr. Germain.
[2018-02-12] MEDS: Pantoprazole Inj 40 MG Vial IV.PUSH SCH (08:51)
[2018-02-12] MEDS: Senna/Docusate Sodium 8.6/50 MG Tablet PO SCH (08:52)
[2018-02-12] MEDS: Potassium Chloride 25 MEQ Effervescent Tablet PO SCH (08:52)
[2018-02-12] MEDS: Insulin NovoLOG Aspart Correctional Sugar Inj SQ SCH ×2 (08:53→13:14)
[2018-02-12] MEDS ORDERED: amLODIPine 5 MG Tablet PO SCH (09:00)
--- NOTE | 2018-02-12 09:52 | P.PNNEU ---
Subjective Subjective Comments: No acute events reported No headache No chest pain No dyspnea Active Medications: Active Medications Acetaminophen (Tylenol) 650 mg PO Q4H PRN PRN Reason: SEE LABEL COMMENTS Last Admin: 02/10/18 15:58 Dose: 650 mg Al Hydroxide/Mg Hydroxide (Milk Of Magnesia Liq) 30 ml PO Q12H PRN PRN Reason: Mild Constipation Last Admin: 02/07/18 20:14 Dose: 30 ml Albuterol (Albuterol Neb (Prn)) 2.5 mg NEB Q2HR NEB PRN PRN Reason: SHORTNESS OF BREATH/WHEEZING Amlodipine Besylate (Norvasc) 5 mg PO DAILY RAMÍREZ Last Admin: 02/12/18 08:52 Dose: 5 mg Bisacodyl (Dulcolax Supp) 10 mg RECTAL DAILY PRN PRN Reason: SEVERE CONSITIPATION Dextrose (D50w Vial) 50 ml IV.PUSH UNSCH PRN PRN Reason: PER HYPOGLYCEMIA PROTOCOL Diphenhydramine HCl (Benadryl) 25 mg PO Q4H PRN PRN Reason: SEE LABEL COMMENTS Last Admin: 02/10/18 15:59 Dose: 25 mg Glucagon (Glucagon Inj) 1 mg OTHER UNSCH PRN PRN Reason: for Hypoglycemia Protocol Nicardipine HCl 25 mg/ Sodium (Chloride) 250 mls @ 50 mls/hr IV.CONT TITRATE PRN; Protocol PRN Reason: Per Protocol Insulin Aspart (Novolog Insulin Correctional Sugar Inj) 0 unit SQ ACHS [facility]; Protocol Last Admin: 02/12/18 08:53 Dose: 2 unit Lactulose (Lactulose Liq) 30 ml PO DAILY PRN PRN Reason: SEVERE CONSITIPATION Last Admin: 02/07/18 20:14 Dose: 30 ml Miscellaneous (Pill Splitter) 1 each OTHER UNSCH [facility] Miscellaneous Information (Misc Nursing Information) 1 each OTHER UNSCH PRN PRN Reason: SEE LABEL COMMENTS Stop: 02/12/18 19:42 Ondansetron HCl (Zofran Odt) 4 mg PO Q6H PRN PRN Reason: NAUSEA OR VOMITING Last Admin: 02/05/18 00:28 Dose: 4 mg Oxymetazoline HCl (Afrin 0.05% Nasal [place]) 2 spray NASAL Q12H PRN PRN Reason: epistaxis Last Admin: 02/05/18 21:37 Dose: 2 spray Pantoprazole Sodium (Protonix Inj) 40 mg IV.PUSH DAILY [facility] Last Admin: 02/12/18 08:51 Dose: 40 mg Potassium Bicarb/Potassium Chloride (K-Lyte Cl Eff) 25 meq PO BID [facility] Last Admin: 02/12/18 08:52 Dose: 25 meq Senna/Docusate Sodium (Ora-Colace) 1 tab PO BID [facility] Last Admin: 02/12/18 08:52 Dose: 1 tab Sennosides (Senokot) 17.2 mg PO Q12H PRN PRN Reason: Moderate Constipation Last Admin: 02/07/18 20:14 Dose: 17.2 mg Sodium Chloride (Ns Flush) 2 ml IV.FLUSH BID [facility] Last Admin: 02/12/18 08:54 Dose: 2 ml Sodium Chloride (Ns Flush) 2 ml IV.FLUSH PRN PRN PRN Reason: FLUSH AFTER USING IV ACCESS Allergies/Adverse Reactions: Allergies Allergy/AdvReac Type Severity Reaction Status Date / Time niacin Allergy Unknown Nausea/Vomi Verified 02/04/18 21:42 ting sitagliptin AdvReac Severe STOMACH Verified 02/04/18 21:42 PAIN Review of Systems All other systems reviewed negative except as stated in HPI Physical Exam Vital signs: Vital Signs 02/11/18 10:00 02/11/18 11:00 02/11/18 12:00 Temperature 98.1 F Pulse Rate 74 77 78 Respiratory Rate 16 Blood Pressure 124/68 Pulse Oximetry 99 02/11/18 13:00 02/11/18 14:00 02/11/18 15:00 Temperature Pulse Rate 74 74 74 Respiratory Rate Blood Pressure Pulse Oximetry 02/11/18 16:00 02/11/18 17:00 02/11/18 19:21 Temperature 98.0 F 98.6 F Pulse Rate 72 73 77 Respiratory Rate 15 22 Blood Pressure 156/80 H 138/66 Pulse Oximetry 98 100 02/11/18 19:30 02/11/18 19:45 02/11/18 20:00 Temperature 98.6 F 98.6 F Pulse Rate 78 79 80 Respiratory Rate 21 18 Blood Pressure 153/67 H 140/67 Pulse Oximetry 99 100 02/11/18 21:00 02/11/18 22:00 02/11/18 22:51 Temperature 98.1 F Pulse Rate 82 78 79 Respiratory Rate 18 Blood Pressure 144/78 H Pulse Oximetry 97 02/11/18 23:00 02/12/18 00:00 02/12/18 01:00 Temperature Pulse Rate 76 76 72 Respiratory Rate Blood Pressure Pulse Oximetry 02/12/18 02:00 02/12/18 03:00 02/12/18 04:00 Temperature 98.1 F Pulse Rate 78 76 80 Respiratory Rate 20 Blood Pressure 143/76 H Pulse Oximetry 93 L 02/12/18 05:00 02/12/18 06:00 02/12/18 07:00 Temperature 98.1 F Pulse Rate 74 75 78 Respiratory Rate 18 Blood Pressure 146/73 H Pulse Oximetry 100 02/12/18 08:00 Temperature Pulse Rate 78 Respiratory Rate Blood Pressure Pulse Oximetry Intake & Output 02/11/18 02/12/18 02/12/18 18:59 06:59 18:59 Intake Total 720 / 720 Output Total 401 / 401 325 / 325 Balance -401 / -401 395 / 395 Weight 90.8 kg Intake: Oral 720 / 720 Output: Urine 400 / 400 325 / 325 Stool / Other: # Voids 3 Date of Last Bowel Movement 02/10/18 02/10/18 02/10/18 Narrative: GENERAL: Very pleasant male awake and alert. SKIN: Gauze dressing in place over right forearm. HEAD: Normocephalic. Large scalp hematoma overlying R temporal region EYES: R periorbital hematoma. Subconjunctival hemorrhage right lateral bulbar conjunctiva. CARDIOVASCULAR: irregular,systolic murmur RESPIRATORY: No accessory muscle use. GASTROINTESTINAL: Abdomen soft, BS +, non-tender, nondistended. MUSCULOSKELETAL: Extremities without clubbing, cyanosis. Edema 1+ bilateral lower extremities. NEUROLOGICAL: Awake and alert. Oriented x3, No pronator drift, no tremor. 5/5 biceps/triceps bilaterally, order dispatcher strength is normal bilaterally. Normal lower extremity strength. - Constitutional no acute distress - Routine HEENT Exam Head: Present: normocephalic Eye: Present: EOMI Objective Laboratory Results - last 24 hr 02/11/18 02/11/18 02/11/18 11:00 13:00 17:04 WBC 3.3 L RBC 3.37 L Hgb 10.7 L Hct 32.0 L MCV 94.8 D MCH 31.8 MCHC 33.6 RDW 16.4 Plt Count 64 L MPV 10.0 Prelim Diff (Auto) Slide review pending Neut % (Auto) 81.2 H Lymph % (Auto) 6.0 L [place] % (Auto) 9.6 H Eos % (Auto) 2.1 Baso % (Auto) 1.1 Neut # (Auto) 2.7 Lymph # (Auto) 0.2 L [place] # (Auto) 0.3 Eos # (Auto) 0.1 Baso # (Auto) 0.0 WBC Differential . Diff Scan Auto diff confirmed Differential Comment . Platelet Estimate Low L Platelet Morphology Normal Polychromasia Ovalocytes 1+ H Acanthocytes (Spur) Occ H Keratocytes Sodium Potassium Chloride Carbon Dioxide Anion Gap BUN Creatinine Estimated GFR POC Glucose 113 H 101 Random Glucose Calcium 02/11/18 02/12/18 02/12/18 20:16 04:00 04:00 WBC 3.7 L RBC 3.18 L Hgb 10.1 L Hct 30.5 L MCV 95.9 MCH 31.8 MCHC 33.1 RDW 16.4 Plt Count 72 L MPV 10.5 Prelim Diff (Auto) Slide review pending Neut % (Auto) 80.3 H Lymph % (Auto) 6.2 L [place] % (Auto) 10.2 H Eos % (Auto) 2.0 Baso % (Auto) 1.3 Neut # (Auto) 2.9 Lymph # (Auto) 0.2 L [place] # (Auto) 0.4 Eos # (Auto) 0.1 Baso # (Auto) 0.0 WBC Differential . Diff Scan Auto diff confirmed Differential Comment . Platelet Estimate Low L Platelet Morphology Normal Polychromasia 2.1 H Ovalocytes 1+ H Acanthocytes (Spur) Occ H Keratocytes Occ H Sodium 140 Potassium 4.2 Chloride 101 Carbon Dioxide 28.1 Anion Gap 11 BUN 37 H Creatinine 1.85 H Estimated GFR 35 L POC Glucose 123 H Random Glucose 137 H Calcium 8.6 02/12/18 07:19 WBC RBC Hgb Hct MCV MCH MCHC RDW Plt Count MPV Prelim Diff (Auto) Neut % (Auto) Lymph % (Auto) [place] % (Auto) Eos % (Auto) Baso % (Auto) Neut # (Auto) Lymph # (Auto) [place] # (Auto) Eos # (Auto) Baso # (Auto) WBC Differential Diff Scan Differential Comment Platelet Estimate Platelet Morphology Polychromasia Ovalocytes Acanthocytes (Spur) Keratocytes Sodium Potassium Chloride Carbon Dioxide Anion Gap BUN Creatinine Estimated GFR POC Glucose 150 H Random Glucose Calcium Review/Management - Diagnosis (1) Subarachnoid bleed Code(s): I60.9 - Nontraumatic subarachnoid hemorrhage, unspecified Status: Acute Current Visit: Yes (2) CKD (chronic kidney disease) stage 4, GFR 15-29 ml/min Code(s): N18.4 - Chronic kidney disease, stage 4 (severe) Status: Acute Current Visit: Yes (3) Fall Code(s): W19.XXXA - Unspecified fall, initial encounter Status: Acute Current Visit: Yes (4) Scalp hematoma Code(s): S00.03XA - Contusion of scalp, initial encounter Status: Acute Current Visit: Yes (5) H/O stroke within last year Code(s): Z86.73 - Personal history of transient ischemic attack (TIA), and cerebral infarction without residual deficits Status: Acute Current Visit: Yes (6) TBI (traumatic brain injury) Code(s): S06.9X9A - Unspecified intracranial injury with loss of consciousness of unspecified duration, initial encounter Status: Acute Current Visit: Yes - Review/Management Plan: Recurrent syncopal episodes Suspect related orthostatic hypotension, possible arrhythmia in the setting of anemia and underlying cardiovascular disease May be more prone to syncope with history of left carotid occlusion as well Recommendations pacemaker inserted neuro stable ok to d/c from neurology no driving until seen outpatient
--- NOTE | 2018-02-12 11:49 | P.PNPAL ---
Reason for Visit Reason for visit: a. To assist with evaluation and management of symptoms including: dyspnea/ cough, pain, debility b. To assist medical decision maker(s) with: better understanding of current medical conditions; weighing benefits/burdens of medical treatment options; making medical treatment decisions. Subjective Subjective/Interval History: Pt s/p micra pacemaker placement 02/11. Hgb 10.1 s/p 2 x PRBC. Kidney function stable. Dual visit with ALVA Martinez. Pt's and Son at bedside. Pt OOB to chair. Denies SOB. Says he did therapy earlier and denies SOB during therapy; did not need to stop for a break. Sat 95% on room air. Admits good appetite, his is ordering him lunch. Admits some lingering rib soreness. Denies head pain. Pt verbalizes readiness to go home. Per son they are going to have available walker, wheelchair, shower seat. Advance Directives Advance Directives Date on File: 07/19/92 Health Care Surrogate Name and Number: Veda Renteria [phone] Documented care wishes:: Living will with standard verbiage requesting life prolonging procedures and artificial nutrition be withheld if it would only serve to artificially prolong dying process. Objective Vital Signs: Vital Signs 02/11/18 12:00 02/11/18 13:00 02/11/18 14:00 Temperature 98.1 F Pulse Rate 78 74 74 Respiratory Rate 16 Blood Pressure 124/68 Pulse Oximetry 99 02/11/18 15:00 02/11/18 16:00 02/11/18 17:00 Temperature 98.0 F Pulse Rate 74 72 73 Respiratory Rate 15 Blood Pressure 156/80 H Pulse Oximetry 98 02/11/18 19:21 02/11/18 19:30 02/11/18 19:45 Temperature 98.6 F 98.6 F 98.6 F Pulse Rate 77 78 79 Respiratory Rate 22 21 18 Blood Pressure 138/66 153/67 H 140/67 Pulse Oximetry 100 99 100 02/11/18 20:00 02/11/18 21:00 02/11/18 22:00 Temperature Pulse Rate 80 82 78 Respiratory Rate Blood Pressure Pulse Oximetry 02/11/18 22:51 02/11/18 23:00 02/12/18 00:00 Temperature 98.1 F Pulse Rate 79 76 76 Respiratory Rate 18 Blood Pressure 144/78 H Pulse Oximetry 97 02/12/18 01:00 02/12/18 02:00 02/12/18 03:00 Temperature 98.1 F Pulse Rate 72 78 76 Respiratory Rate 20 Blood Pressure 143/76 H Pulse Oximetry 93 L 02/12/18 04:00 02/12/18 05:00 02/12/18 06:00 Temperature Pulse Rate 80 74 75 Respiratory Rate Blood Pressure Pulse Oximetry 02/12/18 07:00 02/12/18 08:00 02/12/18 09:00 Temperature 98.1 F Pulse Rate 78 78 82 Respiratory Rate 18 Blood Pressure 146/73 H Pulse Oximetry 100 02/12/18 10:00 02/12/18 11:00 Temperature 98.2 F Pulse Rate 86 86 Respiratory Rate 14 Blood Pressure 151/70 H Pulse Oximetry 95 Intake & Output 02/11/18 02/12/18 02/12/18 18:59 06:59 18:59 Intake Total 720 / 720 Output Total 401 / 401 325 / 325 Balance -401 / -401 395 / 395 Weight 90.8 kg Intake: Oral 720 / 720 Output: Urine 400 / 400 325 / 325 Stool Other: # Voids 3 Date of Last Bowel Movement 02/10/18 02/10/18 02/10/18 Physical Exam: CONSTITUTIONAL/GENERAL: This is an adequately nourished patient, in no apparent distress. SKIN: No jaundice, rashes, or lesions. + Ecchymoses on upper extremities. Skin temperature appropriate. Not diaphoretic. HEAD: Ecchymosis right face. Normocephalic. EYES: PERRL. Extraocular motions intact. No scleral icterus. No injection or drainage. Fundi not examined. Ecchymosis around right orbit. ENT: Hearing grossly normal. Nose with nasal tampon, scant bleeding NECK: Trachea midline. Supple. CARDIOVASCULAR: RRR, no murmur, no gallops, or rubs. No JVD. RESPIRATORY/CHEST: Symmetric, unlabored respirations. Clear to auscultation. Breath sounds equal bilaterally. GASTROINTESTINAL: Abdomen soft, non-tender, protuberant. No hepato-splenomegaly , or palpable masses. No guarding. Bowel sounds present. MUSCULOSKELETAL: Extremities without clubbing, cyanosis, No mottling or clubbing. +1 pitting BLE edema NEUROLOGICAL: Awake and alert. Motor and sensory grossly within normal limits. Follows commands. Moves all extremities. PSYCHIATRIC: No obvious anxiety/depression. no apparent hallucinations or other psychotic thought process. Diagnostic Tests Laboratory: Laboratory Results - last 72 hr 02/09/18 02/09/18 02/09/18 11:41 16:31 20:59 WBC RBC Hgb Hct MCV MCH MCHC RDW Plt Count MPV Prelim Diff (Auto) Neut % (Auto) Lymph % (Auto) [place] % (Auto) Eos % (Auto) Baso % (Auto) Neut # (Auto) Lymph # (Auto) [place] # (Auto) Eos # (Auto) Baso # (Auto) WBC Differential Diff Scan Differential Comment Platelet Estimate Platelet Morphology Polychromasia Ovalocytes Acanthocytes (Spur) Keratocytes Sodium Potassium Chloride Carbon Dioxide Anion Gap BUN Creatinine Estimated GFR POC Glucose 158 H 204 H 182 H Random Glucose Calcium Blood Type Antibody Screen MTS Gel Crossmatch 02/10/18 02/10/18 02/10/18 05:19 07:55 10:49 WBC RBC Hgb Hct MCV MCH MCHC RDW Plt Count MPV Prelim Diff (Auto) Neut % (Auto) Lymph % (Auto) [place] % (Auto) Eos % (Auto) Baso % (Auto) Neut # (Auto) Lymph # (Auto) [place] # (Auto) Eos # (Auto) Baso # (Auto) WBC Differential Diff Scan Differential Comment Platelet Estimate Platelet Morphology Polychromasia Ovalocytes Acanthocytes (Spur) Keratocytes Sodium 139 Potassium 4.1 Chloride 100 Carbon Dioxide 30.7 Anion Gap 8 BUN 39 H Creatinine 1.78 H Estimated GFR 36 L POC Glucose 122 H 175 H Random Glucose 122 H Calcium 8.4 L Blood Type Antibody Screen MTS Gel Crossmatch 02/10/18 02/10/18 02/10/18 11:52 16:05 20:25 WBC RBC Hgb Hct MCV MCH MCHC RDW Plt Count MPV Prelim Diff (Auto) Neut % (Auto) Lymph % (Auto) [place] % (Auto) Eos % (Auto) Baso % (Auto) Neut # (Auto) Lymph # (Auto) [place] # (Auto) Eos # (Auto) Baso # (Auto) WBC Differential Diff Scan Differential Comment Platelet Estimate Platelet Morphology Polychromasia Ovalocytes Acanthocytes (Spur) Keratocytes Sodium Potassium Chloride Carbon Dioxide Anion Gap BUN Creatinine Estimated GFR POC Glucose 205 H 174 H Random Glucose Calcium Blood Type A Positive Antibody Screen Negative MTS Gel Crossmatch See Detail 02/11/18 02/11/18 02/11/18 05:19 07:43 11:00 WBC 3.3 L RBC 3.37 L Hgb 10.7 L Hct 32.0 L MCV 94.8 D MCH 31.8 MCHC 33.6 RDW 16.4 Plt Count 64 L MPV 10.0 Prelim Diff (Auto) Slide review pending Neut % (Auto) 81.2 H Lymph % (Auto) 6.0 L [place] % (Auto) 9.6 H Eos % (Auto) 2.1 Baso % (Auto) 1.1 Neut # (Auto) 2.7 Lymph # (Auto) 0.2 L [place] # (Auto) 0.3 Eos # (Auto) 0.1 Baso # (Auto) 0.0 WBC Differential . Diff Scan Auto diff confirmed Differential Comment . Platelet Estimate Low L Platelet Morphology Normal Polychromasia Ovalocytes 1+ H Acanthocytes (Spur) Occ H Keratocytes Sodium 140 Potassium 3.9 Chloride 100 Carbon Dioxide 29.3 Anion Gap 11 BUN 37 H Creatinine 1.80 H Estimated GFR 36 L POC Glucose 106 Random Glucose 103 Calcium 8.5 Blood Type Antibody Screen MTS Gel Crossmatch 02/11/18 02/11/18 02/11/18 13:00 17:04 20:16 WBC RBC Hgb Hct MCV MCH MCHC RDW Plt Count MPV Prelim Diff (Auto) Neut % (Auto) Lymph % (Auto) [place] % (Auto) Eos % (Auto) Baso % (Auto) Neut # (Auto) Lymph # (Auto) [place] # (Auto) Eos # (Auto) Baso # (Auto) WBC Differential Diff Scan Differential Comment Platelet Estimate Platelet Morphology Polychromasia Ovalocytes Acanthocytes (Spur) Keratocytes Sodium Potassium Chloride Carbon Dioxide Anion Gap BUN Creatinine Estimated GFR POC Glucose 113 H 101 123 H Random Glucose Calcium Blood Type Antibody Screen MTS Gel Crossmatch 02/12/18 02/12/18 02/12/18 04:00 04:00 07:19 WBC 3.7 L RBC 3.18 L Hgb 10.1 L Hct 30.5 L MCV 95.9 MCH 31.8 MCHC 33.1 RDW 16.4 Plt Count 72 L MPV 10.5 Prelim Diff (Auto) Slide review pending Neut % (Auto) 80.3 H Lymph % (Auto) 6.2 L [place] % (Auto) 10.2 H Eos % (Auto) 2.0 Baso % (Auto) 1.3 Neut # (Auto) 2.9 Lymph # (Auto) 0.2 L [place] # (Auto) 0.4 Eos # (Auto) 0.1 Baso # (Auto) 0.0 WBC Differential . Diff Scan Auto diff confirmed Differential Comment . Platelet Estimate Low L Platelet Morphology Normal Polychromasia 2.1 H Ovalocytes 1+ H Acanthocytes (Spur) Occ H Keratocytes Occ H Sodium 140 Potassium 4.2 Chloride 101 Carbon Dioxide 28.1 Anion Gap 11 BUN 37 H Creatinine 1.85 H Estimated GFR 35 L POC Glucose 150 H Random Glucose 137 H Calcium 8.6 Blood Type Antibody Screen MTS Gel Crossmatch Result Diagrams: 02/12/18 04:00 02/12/18 04:00 Imaging: ITS Impressions Cervical Spine CT 02/04/18 21:19 CONCLUSION: 1. No evidence of compression deformity or spondylolisthesis. 2. Multilevel discogenic degenerative changes and facet joint hypertrophy. Face CT 02/04/18 21:19 CONCLUSION: 1. No facial bone fractures seen. 2. Opacified frontal ethmoid and maxillary sinuses with evidence of resorption of nasal and ethmoid septa suggests chronic process. There is, however, an air- fluid level in the right maxillary sinus. Pelvis X-Ray 02/04/18 21:19 CONCLUSION: No gross bony abnormality seen. Abdomen/Bladder Ultrasound 02/05/18 00:00 CONCLUSION: 1. Echogenic kidneys consistent with medical renal disease. No evidence for obstructive uropathy. 2. Bilateral renal cysts with a dominant 7.2 cm cyst in the superior pole of the right kidney. 3. Small amount ascites. 4. Prominent prostate. Head MRI 02/05/18 00:00 CONCLUSION: 1. Traumatic brain injury which includes significant subarachnoid hemorrhage, parenchymal hemorrhage and small subdural hematoma involving the right temporal and occipital lobes. 2. Additional hemorrhage or identified in both frontal lobes and left temporal lobe. 3. Right frontal cephalohematoma 4. No evidence of significant mass effect, intra-axial edema or acute infarct. Carotid Doppler Study 02/07/18 00:00 CONCLUSION: 1. Right Internal Carotid Artery: Findings indicate <50% stenosis. 2. Left Internal Carotid Artery: Findings indicate undetectable blood flow suggesting total occlusion. Head CT 02/07/18 11:10 CONCLUSION: 1. Bilateral subarachnoid hemorrhage. 2. Intraventricular hemorrhage which is new from previous study. 3. No midline shift or mass effect. . Chest X-Ray 02/09/18 06:00 CONCLUSION: 1. Hypoinflation with no acute infiltrate. 2. Compensated cardiomegaly. 3. 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 Procedures: 02/11 micra pacemaker placement Assessment and Plan - Disease Oriented Problem List (1) Subarachnoid bleed (2) TBI (traumatic brain injury) (3) CKD (chronic kidney disease) stage 4, GFR 15-29 ml/min (4) Fall (5) Scalp hematoma (6) Subconjunctival hemorrhage of right eye Pertinent Non-Medical Issues: Psychosocial: Pt is with 5 children. He is originally from [place] and has been in [place] for nearly 30 years. 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 Spiritual: Voodoo. Family's printing film stripper currently attending to spiritual needs. Legal: Pt currently is capacitated to make medical decision. IN the event he becomes incapacitated, in his living will he designated HCS Veda renteria Ethical issues impacting care: none identified Important Contacts: Veda Renteria [phone] Prognosis: This is an 87 yo male with hx falls, AF on eliquis, IDDM, CAD, s/p TAVR who presented after a fall and was found to have subarachnoid hemorrhage on the right side, focal parenchymal hemorrhage on the left side. He is stable currently but is at significant risk for developing pneumonia from aspiration of blood. He is also at risk for further falls, bleeds, and for clots and stroke. He requires anticoagulation for AF & mechanical valve but his tendency for falls is a complicating factor and presents a dilemma for future management. His underlying comorbitities further reduce his likelihood of making a full recovery. He has been declining since his TAVR and it is likely that he will continue to decline. Had micra pacemaker placed but this may not alleviate all factors in his syncopal episodes and he will continue to have high risk for falls. He will likely need additional therapy at home after d/c. Code Status: Full Code Plan: - LEGAL DECISON MAKER - Pt currently is capacitate to make medical decision. IN the event he becomes incapacitated, in his living will he designated HCS - CODE STATUS- full code - GOALS - Pt and family beginning to understand complexity in managing pt's comorbidities without exacerbating others. Still verbalizing aggressive goals. - SYMPTOMS - * pain - risk for pain d/t injuries from repeated falls, has significant bruising and swelling right side of face, numerous bruises on BUE. Today denies any pain, nontender on exam. If he does have pain, could consider tylenol. Recommend caution with opiates or other sedating medications b/c of his risk for falls. * dyspnea/cough - Pt reports SOB on exertion since his TAVR. He had nosebleed after his fall and swallowed blood, reports having coughed up blood clots. He is at risk for PNA. Denies SOB at rest on my evaluation, tolerated therapy well. sat 95% on room air. breathing unlabored. s/p pacemaker placement. * debility - Pt with decline since BEFORE TAVR, has been having activity intolerance, no longer able to assist with household duties and chores. At risk for falls. Per neuro his syncopal episodes likely multifactorial. tolerating therapy. consideration being made for home health after discharge. family and pt planning to utilize assistive devices-- wheelchair, walker, shower seat, when at home - Palliative care will continue to follow during hospital course as condition evolves, to assist patient/decision-maker with understanding of medical conditions, weighing benefits/burdens of treatment options, for clarification of goals of treatment. Additionally will assist with any symptoms of palliative concern Attestation Attestation: To help prompt me to consider important information that might be impacting today's encounter and assessment, information from prior notes written by myself or my colleagues may have been "brought forward" into today's note. My signature on this note, however, is an attestation that I personally performed the exam, history, and/or decision-making noted today, and, unless otherwise indicated, the interactions with patient, family, and staff as well as the review of records all occurred today. I also attest that the listed assessment and stated plan reflect my best clinical judgment today based on the combination of historical information, prior notes, and today's exam/ interactions. When time spent is documented, it refers only to time spent today by the signer, or if indicated, combined time spent today by collaborating physician/nurse practitioner.
--- NOTE | 2018-02-12 12:52 | P.DS ---
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 Reportedly he was watching TV and stood up to walk to the bathroom at about 20:10 and fell on a tile floor hitting the right side of his head. His reports brief loss of consciousness. No noted seizure activity. EVAC was called. Vomited x1 during transport. GCS was 14 on arrival. In the ED workup included CT brain which demonstrated R temporoparietal subarachnoid hemorrhage and focal L frontal intraparenchymal hemorrhage. The emergency department physician discussed with Dr. Montenegro who requested Eliquis reversal. Patient's states that he last took Eliquis at 18:00 on 02/04. Of note, patient had a fall and presented in September 2017 with R hemiparesis. He had been on warfarin and initial CT negative. 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 He was felt to have M2 segment stroke. He was not administered TPA due to multiple contraindications. On followup imaging, he was found to have L subarachnoid hemorrhage, small r subdural without shift. He was followed by neurology and neurosurgery; no surgical intervention.. states he was discharged home with home therapy and was not noted to have residual weakness. 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 Reportedly he was watching TV and stood up to walk to the bathroom at about 20:10 and fell on a tile floor hitting the right side of his head. His reports brief loss of consciousness. No noted seizure activity. EVAC was called. Vomited x1 during transport. GCS was 14 on arrival. In the ED workup included CT brain which demonstrated R temporoparietal subarachnoid hemorrhage and focal L frontal intraparenchymal hemorrhage. The emergency department physician discussed with Dr. Montenegro who requested Eliquis reversal. Patient's states that he last took Eliquis at 18:00 on 02/04. Of note, patient had a fall and presented in September 2017 with R hemiparesis. He had been on warfarin and initial CT negative. 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 He was felt to have M2 segment stroke. He was not administered TPA due to multiple contraindications. On followup imaging, he was found to have L subarachnoid hemorrhage, small r subdural without shift. He was followed by neurology and neurosurgery; no surgical intervention. states he was discharged home with home therapy and was not noted to have residual weakness. SUBJ 02/05: Lying in bed, patient complains about epistaxis since he woke up an hour ago. His platelet count is 68. I have ordered 1 packed unit of platelets stat, also 1 unit of FFP stat for INR of 1.4. MRI of the brain had been ordered per Dr. Montenegro request. Neurosurgery consult is pending 02/06: Lying in bed no acute distress, epistaxis controlled, right nare has a Rhino Rocket in place. MRI brain yesterday showed subarachnoid hemorrhage, parenchymal hemorrhage and small subdural hematoma involving the right temporal and occipital lobes, also intraparenchymal blood involving frontal lobes and left temporal lobe. 02/07: Patient is more somnolent today lying in bed no discomfort but difficult to arouse. is at the bedside. But once woken up patient is oriented to person and place. Did not receive any sedation. CT of the brain stat ordered again to rule out increasing bleed. Pupils remain equal. Dr. Rush cardiology stated patient had 5 sec pause. He will get EP consult to evaluate for PPM 02/08: Patient is more awake alert today cooperative. No pauses reported overnight. Discussed with Dr. Rush. Plan for permanent pacemaker lead this week. CT of the brain done yesterday shows stable CT with new finding of small amount of intraventricular blood. 02/09: No new problems overnight. Lungs remain clear and he is breathing comfortably while supine. Edema in ankles is much improved as renal function improves as well. Will benefit from permanent pacemaker. 02/10; The aptient is in bed , appears pale. HGB dropped pln to transfuse [address] Germain will postpone PM placement . Advance diet. Patient denies chest pain . However feels weak and has some sob. No lightheadedness No n/v/d/c. 02/11/18 Feels improving. With bilateral arm wounds/tears skin. consulted wound care continue per protoco 02/12/18 Patient imprpved / H.H stable /Failed O2 walking test. CM consulted for DC plan Patiejt feels muh better and wants to go hoem with home health ] No chest pain ./ No n/v/d/c. denies sob . Had PM placed Physical exam: GENERAL: Very pleasant male awake and alert. SKIN: Gauze dressing in place over right forearm. HEAD: Normocephalic. Large scalp hematoma overlying R temporal region EYES: R periorbital hematoma. Subconjunctival hemorrhage right lateral bulbar conjunctiva. CARDIOVASCULAR: regular . PM in place RESPIRATORY: No accessory muscle use. Clear to auscultation. Breath sounds equal bilaterally. GASTROINTESTINAL: Abdomen soft, BS +, non-tender, nondistended. Healed vertical scar upper abdomen. MUSCULOSKELETAL: Extremities without clubbing, cyanosis. Edema 1+ bilateral lower extremities. NEUROLOGICAL: Awake and alert. Oriented to person, place. No pronator drift, no tremor. 5/5 biceps/triceps bilaterally, sap hana developer strength is normal bilaterally. Normal lower extremity strength. Assessment and Plan NEURO: TBI with loss of consciousness, s/p fall R temporoparietal subarachnoid hemorrhage in left frontal intraparenchymal hemorrhage, IVH Small subdural hematoma involving the right temporal and occipital lobes. Right scalp hematoma CT of the head stat 02/07-showed stable intracranial bleed, with new finding of small intraventricular hemorrhage Syncope could be cardiac, see CVS CT maxillofacial is negative for acute fracture. Acute epistaxis, now well controlled after Rhino Rocket and platelet transfusion. Remove Rhino Rocket , no more bleeding CT C-spinenegative for fracture CT brain 02/04 with traumatic SAH. Not currently candidate for CTA due to renal dysfunction. Prior CTA 10/09/17 negative for vascular malformation or aneurysm ( L carotid occlusion noted) Cardene if needed to maintain SBP <150. Keppra not currently indicated based on mild TBI by GCS criteria. Holding Eliquis, s/p Kcentra as per below. Neurosurgery Dr. Montenegro RESP: Prior history of tobacco abuse IS q 1 hour awake CV: Cardiac syncope ([address] Rush) HTN Atrial fibrillation on chronic anti-coagulation with Eliquis History of aortic stenosis now status post TAVR 08/2017. Appreciate cardiology consult by Dr. Rush Loop recorder showing a 5-second pause, and 2 bradycardic episodes on 2017. Pacemaker placement with EP this week Cardene as needed to maintain systolic blood pressure less than 150 Hold Eliquis and ASA due to ICH. Holding statin, metoprolol, lasix and metolazone for now. GI: GERD Protonix for stress ulcer prophylaxis and history of GERD. Diet per speech recommendation FEN/RENAL: BPH s/p TUMT CKD stage IIIb-IV Acute hypokalemia states he has been referred to Dr. Kamila Jha but hasn't followed up yet. Nephro Dr. Parrish following here Renal u/s, place lópez if e/o obstruction. Holding tamulosin, finasteride until able to take po. Has been on Lasix and metolazone for edema. Continue to hold for now ID: Monitor for signs and symptoms of infection HEME: History of neuroendocrine tumor status post small bowel resection in 2014 Chronic iron deficiency anemia Chronic thrombocytopenia He has been followed by Dr. Adan Cee as an outpatient for above, follow PET scans have shown no residual disease. Resume iron supplementation, B6, folic acid if passes swallow eval. ENDO: Diabetes mellitus Holding detemir. Monitor glucose AC/at bedtime and initiate medium dose insulin sliding scale as indicated PROPH: SCDs for DVT prophylaxis. He has chronically been on Eliquis which is on hold but pharmacologic DVT prophylaxis is contraindicated due to subarachnoid hemorrhage. Protonix for stress ulcer prophylaxis ACCESS: Peripheral IV providing adequate access at this time Patient is critically ill with TBI including traumatic subarachnoid hemorrhage in need of urgent reversal anticoagulation to decrease chance of expansion of hemorrhage. Discussed with Dr. 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 Patient is of advanced age and has undergone successful TAVR, however his subsequent course has been complicated by readmission for sepsis, ischemic stroke with fall and subsequent SAH and SDH, now additional fall and SAH. He has known left carotid occlusion and A fib which place him at risk for embolic stroke, though obviously with hemorrhage while on anticoagulation. He is at risk for further complication, PPM poss 02/11/18. Transfuse 2 UPRBC on as patient with anemia. Discussed with the patient, nurse, family - at bedside, Dr Marcellus GOFF cardiology DC plan pending improvement 2U PRBC transfusion 02/10/18. H/H stable s/p PPM placement 02/11/[address] Germain Consult PT /OT, recommends home with [facility] Failed O2 walking test and needs O2 at DC . CM consulted fir DC plan arrangements. DC home with home health in stable condition, to follow up as OP with PCP and consultants. - Time Spent with Patient Total time spent providing and/or coordinating discharge services: Greater than 30 minutes - Quality: VTE Deep Vein Thrombosis/Pulmonary Embolism Present on Admission: No Exam Vital signs: Vital Signs 02/11/18 13:00 02/11/18 14:00 02/11/18 15:00 Temperature Pulse Rate 74 74 74 Respiratory Rate Blood Pressure Pulse Oximetry 02/11/18 16:00 02/11/18 17:00 02/11/18 19:21 Temperature 98.0 F 98.6 F Pulse Rate 72 73 77 Respiratory Rate 15 22 Blood Pressure 156/80 H 138/66 Pulse Oximetry 98 100 02/11/18 19:30 02/11/18 19:45 02/11/18 20:00 Temperature 98.6 F 98.6 F Pulse Rate 78 79 80 Respiratory Rate 21 18 Blood Pressure 153/67 H 140/67 Pulse Oximetry 99 100 02/11/18 21:00 02/11/18 22:00 02/11/18 22:51 Temperature 98.1 F Pulse Rate 82 78 79 Respiratory Rate 18 Blood Pressure 144/78 H Pulse Oximetry 97 02/11/18 23:00 02/12/18 00:00 02/12/18 01:00 Temperature Pulse Rate 76 76 72 Respiratory Rate Blood Pressure Pulse Oximetry 02/12/18 02:00 02/12/18 03:00 02/12/18 04:00 Temperature 98.1 F Pulse Rate 78 76 80 Respiratory Rate 20 Blood Pressure 143/76 H Pulse Oximetry 93 L 02/12/18 05:00 02/12/18 06:00 02/12/18 07:00 Temperature 98.1 F Pulse Rate 74 75 78 Respiratory Rate 18 Blood Pressure 146/73 H Pulse Oximetry 100 02/12/18 08:00 02/12/18 09:00 02/12/18 10:00 Temperature Pulse Rate 78 82 86 Respiratory Rate Blood Pressure Pulse Oximetry 02/12/18 11:00 Temperature 98.2 F Pulse Rate 83 Respiratory Rate 14 Blood Pressure 151/70 H Pulse Oximetry 95 Intake & Output 02/11/18 02/12/18 02/12/18 18:59 06:59 18:59 Intake Total 720 / 720 Output Total 401 / 401 325 / 325 Balance -401 / -401 395 / 395 Weight 90.8 kg Intake: Oral 720 / 720 Output: Urine 400 / 400 325 / 325 Stool / Other: # Voids 3 Date of Last Bowel Movement 02/10/18 02/10/18 02/10/18 Results Procedures completed during hospitalization: PM placement 02/11/[address] Marcellus GOFF Anterior nasal packing Labs on day of discharge: Labs from last 24 hours 02/12/18 02/12/18 02/12/18 07:19 04:00 04:00 WBC 3.7 L RBC 3.18 L Hgb 10.1 L Hct 30.5 L MCV 95.9 MCH 31.8 MCHC 33.1 RDW 16.4 Plt Count 72 L MPV 10.5 Prelim Diff (Auto) Slide review pending Neut % (Auto) 80.3 H Lymph % (Auto) 6.2 L [place] % (Auto) 10.2 H Eos % (Auto) 2.0 Baso % (Auto) 1.3 Neut # (Auto) 2.9 Lymph # (Auto) 0.2 L [place] # (Auto) 0.4 Eos # (Auto) 0.1 Baso # (Auto) 0.0 WBC Differential . Diff Scan Auto diff confirmed Differential Comment . Platelet Estimate Low L Platelet Morphology Normal Polychromasia 2.1 H Ovalocytes 1+ H Acanthocytes (Spur) Occ H Keratocytes Occ H Sodium 140 Potassium 4.2 Chloride 101 Carbon Dioxide 28.1 Anion Gap 11 BUN 37 H Creatinine 1.85 H Estimated GFR 35 L POC Glucose 150 H Random Glucose 137 H Calcium 8.6 02/11/18 02/11/18 02/11/18 20:16 17:04 13:00 WBC RBC Hgb Hct MCV MCH MCHC RDW Plt Count MPV Prelim Diff (Auto) Neut % (Auto) Lymph % (Auto) [place] % (Auto) Eos % (Auto) Baso % (Auto) Neut # (Auto) Lymph # (Auto) [place] # (Auto) Eos # (Auto) Baso # (Auto) WBC Differential Diff Scan Differential Comment Platelet Estimate Platelet Morphology Polychromasia Ovalocytes Acanthocytes (Spur) Keratocytes Sodium Potassium Chloride Carbon Dioxide Anion Gap BUN Creatinine Estimated GFR POC Glucose 123 H 101 113 H Random Glucose Calcium - Impressions ITS Impressions Cervical Spine CT 02/04/18 21:19 CONCLUSION: 1. No evidence of compression deformity or spondylolisthesis. 2. Multilevel discogenic degenerative changes and facet joint hypertrophy. Face CT 02/04/18 21:19 CONCLUSION: 1. No facial bone fractures seen. 2. Opacified frontal ethmoid and maxillary sinuses with evidence of resorption of nasal and ethmoid septa suggests chronic process. There is, however, an air- fluid level in the right maxillary sinus. Pelvis X-Ray 02/04/18 21:19 CONCLUSION: No gross bony abnormality seen. Abdomen/Bladder Ultrasound 02/05/18 00:00 CONCLUSION: 1. Echogenic kidneys consistent with medical renal disease. No evidence for obstructive uropathy. 2. Bilateral renal cysts with a dominant 7.2 cm cyst in the superior pole of the right kidney. 3. Small amount ascites. 4. Prominent prostate. Head MRI 02/05/18 00:00 CONCLUSION: 1. Traumatic brain injury which includes significant subarachnoid hemorrhage, parenchymal hemorrhage and small subdural hematoma involving the right temporal and occipital lobes. 2. Additional hemorrhage or identified in both frontal lobes and left temporal lobe. 3. Right frontal cephalohematoma 4. No evidence of significant mass effect, intra-axial edema or acute infarct. Carotid Doppler Study 02/07/18 00:00 CONCLUSION: 1. Right Internal Carotid Artery: Findings indicate <50% stenosis. 2. Left Internal Carotid Artery: Findings indicate undetectable blood flow suggesting total occlusion. Head CT 02/07/18 11:10 CONCLUSION: 1. Bilateral subarachnoid hemorrhage. 2. Intraventricular hemorrhage which is new from previous study. 3. No midline shift or mass effect. . Chest X-Ray 02/09/18 06:00 CONCLUSION: 1. Hypoinflation with no acute infiltrate. 2. Compensated cardiomegaly. 3. 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 Discharge Plan - Discharge Disposition Patient Disposition: /Home Health Service - Discharge Condition Condition: Critical - Discharge Order Discharge Orders: Discharge Order (Routine); Ordered 02/12/18 Ordered By: Fracnia Concepcion - Discharge Details Anticipated Discharge Date: 02/04/18 - Physicians Team Primary Care Provider: UNKNOWN, Attending Provider: Francia Concepcion Other Providers: Suleiman Montenegro MD ; Catracho Small MD ; Darin Webster ; Keith Parrish MD ; Alvaro Rush DO ; Link Persaud MD ; Akash Germain MD
--- NOTE | 2018-02-12 12:53 | P.DCO ---
- Physical Therapy Order: Evaluate and treat - Home Health Nursing Order: Medical education, Signs/symptoms of disease process, Diabetic education , CHF education, Medication education-adverse effect, Nursing assessment with vital signs, Telehealth - Certification I have seen patient Kim Miller on 02/12/18. My clinical findings support the need for the requested home health care services because: Limited mobility due to disease progression, Patient has SOB I certify that my clinical findings support that this patient is homebound because: Post-op weakness
--- NOTE | 2018-02-12 15:24 | P.DCO ---
- Physical Therapy Order: Evaluate and treat - Occupational Therapy Order: Evaluate and treat - Home Health Nursing Order: Medical education, Signs/symptoms of disease process, Diabetic education , CHF education, Oxygen administration education, Medication education-adverse effect, Wound care and dressing changes (Tegaderms that were placed on patients skin tears previously are to remain in place for the entire 7 days per dressing instructions.), Nursing assessment with vital signs, Telehealth - Certification I have seen patient Kim Miller on 02/12/18. My clinical findings support the need for the requested home health care services because: Limited mobility due to disease progression, Patient has SOB I certify that my clinical findings support that this patient is homebound because: Post-op weakness, Unsteady gait/balance
--- NOTE | 2018-02-12 18:53 | P.PNNS ---
Subjective Interval history: Note is for 02/10/18, when patient was seen and examined. 02/09: neurologically doing well, no new neuro complaints. being planned for pacemaker placement. 02/10. Feels well. No focal deficits. Cardiac workup in progress Physical Exam Vital signs: Vital Signs 02/11/18 19:21 02/11/18 19:30 02/11/18 19:45 Temperature 98.6 F 98.6 F 98.6 F Pulse Rate 77 78 79 Respiratory Rate 22 21 18 Blood Pressure 138/66 153/67 H 140/67 Pulse Oximetry 100 99 100 Pulse Oximetry [Exertion on Room Air] Pulse Oximetry [Exertion with Oxygen] Pulse Oximetry [Resting on Room Air] Pulse Oximetry [Resting with Oxygen] 02/11/18 20:00 02/11/18 21:00 02/11/18 22:00 Temperature Pulse Rate 80 82 78 Respiratory Rate Blood Pressure Pulse Oximetry Pulse Oximetry [Exertion on Room Air] Pulse Oximetry [Exertion with Oxygen] Pulse Oximetry [Resting on Room Air] Pulse Oximetry [Resting with Oxygen] 02/11/18 22:51 02/11/18 23:00 02/12/18 00:00 Temperature 98.1 F Pulse Rate 79 76 76 Respiratory Rate 18 Blood Pressure 144/78 H Pulse Oximetry 97 Pulse Oximetry [Exertion on Room Air] Pulse Oximetry [Exertion with Oxygen] Pulse Oximetry [Resting on Room Air] Pulse Oximetry [Resting with Oxygen] 02/12/18 01:00 02/12/18 02:00 02/12/18 03:00 Temperature 98.1 F Pulse Rate 72 78 76 Respiratory Rate 20 Blood Pressure 143/76 H Pulse Oximetry 93 L Pulse Oximetry [Exertion on Room Air] Pulse Oximetry [Exertion with Oxygen] Pulse Oximetry [Resting on Room Air] Pulse Oximetry [Resting with Oxygen] 02/12/18 04:00 02/12/18 05:00 02/12/18 06:00 Temperature Pulse Rate 80 74 75 Respiratory Rate Blood Pressure Pulse Oximetry Pulse Oximetry [Exertion on Room Air] Pulse Oximetry [Exertion with Oxygen] Pulse Oximetry [Resting on Room Air] Pulse Oximetry [Resting with Oxygen] 02/12/18 07:00 02/12/18 08:00 02/12/18 09:00 Temperature 98.1 F Pulse Rate 78 78 82 Respiratory Rate 18 Blood Pressure 146/73 H Pulse Oximetry 100 Pulse Oximetry [Exertion on Room Air] Pulse Oximetry [Exertion with Oxygen] Pulse Oximetry [Resting on Room Air] Pulse Oximetry [Resting with Oxygen] 02/12/18 10:00 02/12/18 11:00 02/12/18 12:00 Temperature 98.2 F Pulse Rate 86 83 78 Respiratory Rate 14 Blood Pressure 151/70 H Pulse Oximetry 95 Pulse Oximetry [Exertion on Room Air] Pulse Oximetry [Exertion with Oxygen] Pulse Oximetry [Resting on Room Air] Pulse Oximetry [Resting with Oxygen] 02/12/18 13:00 02/12/18 14:00 02/12/18 14:18 Temperature Pulse Rate 79 83 Respiratory Rate Blood Pressure Pulse Oximetry Pulse Oximetry [Exertion on Room Air] 83 L Pulse Oximetry [Exertion with Oxygen] 99 Pulse Oximetry [Resting on Room Air] 98 Pulse Oximetry [Resting with Oxygen] 96 02/12/18 15:00 02/12/18 16:00 02/12/18 16:49 Temperature 97.8 F Pulse Rate 78 81 80 Respiratory Rate 16 Blood Pressure 138/74 Pulse Oximetry 100 Pulse Oximetry [Exertion on Room Air] Pulse Oximetry [Exertion with Oxygen] Pulse Oximetry [Resting on Room Air] Pulse Oximetry [Resting with Oxygen] Intake & Output 02/11/18 02/12/18 02/12/18 18:59 06:59 18:59 Intake Total 720 / 720 Output Total 401 / 401 325 / 325 Balance -401 / -401 395 / 395 Weight 90.8 kg Intake: Oral 720 / 720 Output: Urine 400 / 400 325 / 325 Stool Other: # Voids 3 Date of Last Bowel Movement 02/10/18 02/10/18 02/10/18 Narrative: GENERAL: Mr Miller is Resting in bed, in no acute distress. SKIN: Warm and dry. HEAD: Right periorbital/forehead ecchymosis improving EYES: Pupils equal and round. No scleral icterus. No injection or drainage. NECK: Trachea midline. No JVD. CARDIOVASCULAR: regular RESPIRATORY: No accessory muscle use. GASTROINTESTINAL: Abdomen soft, non-tender, MUSCULOSKELETAL: Extremities without clubbing, cyanosis, or edema. No obvious deformities. Moves all four extremities well. NEUROLOGICAL: Awake and alert. Speech fluent. Pupils equal, gross EOMs intact. Facial motor symmetric. Assessment and Plan - Plan I r Problem List (1) CKD (chronic kidney disease) stage 4, GFR 15-29 ml/min Code(s): N18.4 - Chronic kidney disease, stage 4 (severe) Status: Acute (2) Fall Code(s): W19.XXXA - Unspecified fall, initial encounter Status: Acute (3) Scalp hematoma Code(s): S00.03XA - Contusion of scalp, initial encounter Status: Acute (4) H/O stroke within last year Code(s): Z86.73 - Personal history of transient ischemic attack (TIA), and cerebral infarction without residual deficits Status: Acute (5) TBI (traumatic brain injury) Code(s): S06.9X9A - Unspecified intracranial injury with loss of consciousness of unspecified duration, initial encounter Status: Acute (6) BPH (benign prostatic hyperplasia) Code(s): N40.0 - Benign prostatic hyperplasia without lower urinary tract symptoms Status: Chronic (7) Subconjunctival hemorrhage of right eye Code(s): H11.31 - Conjunctival hemorrhage, right eye Status: Acute (8) H/O malignant neuroendocrine tumor Code(s): Z85.9 - Personal history of malignant neoplasm, unspecified Status: Resolved (9) Thrombocytopenia Code(s): D69.6 - Thrombocytopenia, unspecified Status: Chronic (10) Iron deficiency anemia Code(s): D50.9 - Iron deficiency anemia, unspecified Status: Chronic (11) S/P TAVR (transcatheter aortic valve replacement) Code(s): Z95.2 - Presence of prosthetic heart valve Status: Acute (12) Subarachnoid bleed Code(s): I60.9 - Nontraumatic subarachnoid hemorrhage, unspecified Status: Acute (13) Chronic anticoagulation Code(s): 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
--- NOTE | 2018-02-12 18:55 | P.PNNS ---
Subjective Interval history: Note is for 02/11/18, when patient was seen and examined. 02/09: neurologically doing well, no new neuro complaints. being planned for pacemaker placement. 02/11. Alert and awake. 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 Physical Exam Vital signs: Vital Signs 02/11/18 19:21 02/11/18 19:30 02/11/18 19:45 Temperature 98.6 F 98.6 F 98.6 F Pulse Rate 77 78 79 Respiratory Rate 22 21 18 Blood Pressure 138/66 153/67 H 140/67 Pulse Oximetry 100 99 100 Pulse Oximetry [Exertion on Room Air] Pulse Oximetry [Exertion with Oxygen] Pulse Oximetry [Resting on Room Air] Pulse Oximetry [Resting with Oxygen] 02/11/18 20:00 02/11/18 21:00 02/11/18 22:00 Temperature Pulse Rate 80 82 78 Respiratory Rate Blood Pressure Pulse Oximetry Pulse Oximetry [Exertion on Room Air] Pulse Oximetry [Exertion with Oxygen] Pulse Oximetry [Resting on Room Air] Pulse Oximetry [Resting with Oxygen] 02/11/18 22:51 02/11/18 23:00 02/12/18 00:00 Temperature 98.1 F Pulse Rate 79 76 76 Respiratory Rate 18 Blood Pressure 144/78 H Pulse Oximetry 97 Pulse Oximetry [Exertion on Room Air] Pulse Oximetry [Exertion with Oxygen] Pulse Oximetry [Resting on Room Air] Pulse Oximetry [Resting with Oxygen] 02/12/18 01:00 02/12/18 02:00 02/12/18 03:00 Temperature 98.1 F Pulse Rate 72 78 76 Respiratory Rate 20 Blood Pressure 143/76 H Pulse Oximetry 93 L Pulse Oximetry [Exertion on Room Air] Pulse Oximetry [Exertion with Oxygen] Pulse Oximetry [Resting on Room Air] Pulse Oximetry [Resting with Oxygen] 02/12/18 04:00 02/12/18 05:00 02/12/18 06:00 Temperature Pulse Rate 80 74 75 Respiratory Rate Blood Pressure Pulse Oximetry Pulse Oximetry [Exertion on Room Air] Pulse Oximetry [Exertion with Oxygen] Pulse Oximetry [Resting on Room Air] Pulse Oximetry [Resting with Oxygen] 02/12/18 07:00 02/12/18 08:00 02/12/18 09:00 Temperature 98.1 F Pulse Rate 78 78 82 Respiratory Rate 18 Blood Pressure 146/73 H Pulse Oximetry 100 Pulse Oximetry [Exertion on Room Air] Pulse Oximetry [Exertion with Oxygen] Pulse Oximetry [Resting on Room Air] Pulse Oximetry [Resting with Oxygen] 02/12/18 10:00 02/12/18 11:00 02/12/18 12:00 Temperature 98.2 F Pulse Rate 86 83 78 Respiratory Rate 14 Blood Pressure 151/70 H Pulse Oximetry 95 Pulse Oximetry [Exertion on Room Air] Pulse Oximetry [Exertion with Oxygen] Pulse Oximetry [Resting on Room Air] Pulse Oximetry [Resting with Oxygen] 02/12/18 13:00 02/12/18 14:00 02/12/18 14:18 Temperature Pulse Rate 79 83 Respiratory Rate Blood Pressure Pulse Oximetry Pulse Oximetry [Exertion on Room Air] 83 L Pulse Oximetry [Exertion with Oxygen] 99 Pulse Oximetry [Resting on Room Air] 98 Pulse Oximetry [Resting with Oxygen] 96 02/12/18 15:00 02/12/18 16:00 02/12/18 16:49 Temperature 97.8 F Pulse Rate 78 81 80 Respiratory Rate 16 Blood Pressure 138/74 Pulse Oximetry 100 Pulse Oximetry [Exertion on Room Air] Pulse Oximetry [Exertion with Oxygen] Pulse Oximetry [Resting on Room Air] Pulse Oximetry [Resting with Oxygen] Intake & Output 02/11/18 02/12/18 02/12/18 18:59 06:59 18:59 Intake Total 720 / 720 Output Total 401 / 401 325 / 325 Balance -401 / -401 395 / 395 Weight 90.8 kg Intake: Oral 720 / 720 Output: Urine 400 / 400 325 / 325 Stool Other: # Voids 3 Date of Last Bowel Movement 02/10/18 02/10/18 02/10/18 Narrative: GENERAL: Resting in bed, in no acute distress. SKIN: Warm and dry. HEAD: Right periorbital/forehead ecchymosis improving EYES: Pupils equal and round. No scleral icterus. No injection or drainage. NECK: Trachea midline. No JVD. CARDIOVASCULAR: regular RESPIRATORY: No accessory muscle use. GASTROINTESTINAL: Abdomen soft, non-tender, MUSCULOSKELETAL: Extremities without clubbing, cyanosis, or edema. No obvious deformities. Moves all four extremities well. NEUROLOGICAL: Awake and alert. Speech fluent. Pupils equal, gross EOMs intact. Facial motor symmetric. Assessment and Plan - Plan I r Problem List (1) CKD (chronic kidney disease) stage 4, GFR 15-29 ml/min Code(s): N18.4 - Chronic kidney disease, stage 4 (severe) Status: Acute (2) Fall Code(s): W19.XXXA - Unspecified fall, initial encounter Status: Acute (3) Scalp hematoma Code(s): S00.03XA - Contusion of scalp, initial encounter Status: Acute (4) H/O stroke within last year Code(s): Z86.73 - Personal history of transient ischemic attack (TIA), and cerebral infarction without residual deficits Status: Acute (5) TBI (traumatic brain injury) Code(s): S06.9X9A - Unspecified intracranial injury with loss of consciousness of unspecified duration, initial encounter Status: Acute (6) BPH (benign prostatic hyperplasia) Code(s): N40.0 - Benign prostatic hyperplasia without lower urinary tract symptoms Status: Chronic (7) Subconjunctival hemorrhage of right eye Code(s): H11.31 - Conjunctival hemorrhage, right eye Status: Acute (8) H/O malignant neuroendocrine tumor Code(s): Z85.9 - Personal history of malignant neoplasm, unspecified Status: Resolved (9) Thrombocytopenia Code(s): D69.6 - Thrombocytopenia, unspecified Status: Chronic (10) Iron deficiency anemia Code(s): D50.9 - Iron deficiency anemia, unspecified Status: Chronic (11) S/P TAVR (transcatheter aortic valve replacement) Code(s): Z95.2 - Presence of prosthetic heart valve Status: Acute (12) Subarachnoid bleed Code(s): I60.9 - Nontraumatic subarachnoid hemorrhage, unspecified Status: Acute (13) Chronic anticoagulation Code(s): Z79.01 - bobbin hauler (current) use of 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 Status: Ch Cardiac Awaiting placement f pacemaker, probaly today continue neuro checks, mgt per cardiology, cleared for pacemaker placement from neurosurgical standpoint Pulmonary: aggressive pulmonary toilette, nasotracheal suction, and breathing treatments with nebulizers. Daily PT and OT Renal: Continue to monitor closely urine output, BUN and creatinine Endocrine: Continue to Monitor serial Acu checks and SSI as needed in detail ID continue to monitor for signs of infection Continue Protonix for stress ulcer prophylaxis Continue Edin hose and SCD's for DVT prophylaxis Further recommendations will be provided depending on the patient's clinical evaluation and follow up studies.
--- NOTE | 2018-02-12 18:58 | P.PNNS ---
Subjective Interval history: 02/09: neurologically doing well, no new neuro complaints. being planned for pacemaker placement. 02/12. Status post placement of pacemaker. Feels well. No complications Physical Exam Vital signs: Vital Signs 02/11/18 19:21 02/11/18 19:30 02/11/18 19:45 Temperature 98.6 F 98.6 F 98.6 F Pulse Rate 77 78 79 Respiratory Rate 22 21 18 Blood Pressure 138/66 153/67 H 140/67 Pulse Oximetry 100 99 100 Pulse Oximetry [Exertion on Room Air] Pulse Oximetry [Exertion with Oxygen] Pulse Oximetry [Resting on Room Air] Pulse Oximetry [Resting with Oxygen] 02/11/18 20:00 02/11/18 21:00 02/11/18 22:00 Temperature Pulse Rate 80 82 78 Respiratory Rate Blood Pressure Pulse Oximetry Pulse Oximetry [Exertion on Room Air] Pulse Oximetry [Exertion with Oxygen] Pulse Oximetry [Resting on Room Air] Pulse Oximetry [Resting with Oxygen] 02/11/18 22:51 02/11/18 23:00 02/12/18 00:00 Temperature 98.1 F Pulse Rate 79 76 76 Respiratory Rate 18 Blood Pressure 144/78 H Pulse Oximetry 97 Pulse Oximetry [Exertion on Room Air] Pulse Oximetry [Exertion with Oxygen] Pulse Oximetry [Resting on Room Air] Pulse Oximetry [Resting with Oxygen] 02/12/18 01:00 02/12/18 02:00 02/12/18 03:00 Temperature 98.1 F Pulse Rate 72 78 76 Respiratory Rate 20 Blood Pressure 143/76 H Pulse Oximetry 93 L Pulse Oximetry [Exertion on Room Air] Pulse Oximetry [Exertion with Oxygen] Pulse Oximetry [Resting on Room Air] Pulse Oximetry [Resting with Oxygen] 02/12/18 04:00 02/12/18 05:00 02/12/18 06:00 Temperature Pulse Rate 80 74 75 Respiratory Rate Blood Pressure Pulse Oximetry Pulse Oximetry [Exertion on Room Air] Pulse Oximetry [Exertion with Oxygen] Pulse Oximetry [Resting on Room Air] Pulse Oximetry [Resting with Oxygen] 02/12/18 07:00 02/12/18 08:00 02/12/18 09:00 Temperature 98.1 F Pulse Rate 78 78 82 Respiratory Rate 18 Blood Pressure 146/73 H Pulse Oximetry 100 Pulse Oximetry [Exertion on Room Air] Pulse Oximetry [Exertion with Oxygen] Pulse Oximetry [Resting on Room Air] Pulse Oximetry [Resting with Oxygen] 02/12/18 10:00 02/12/18 11:00 02/12/18 12:00 Temperature 98.2 F Pulse Rate 86 83 78 Respiratory Rate 14 Blood Pressure 151/70 H Pulse Oximetry 95 Pulse Oximetry [Exertion on Room Air] Pulse Oximetry [Exertion with Oxygen] Pulse Oximetry [Resting on Room Air] Pulse Oximetry [Resting with Oxygen] 02/12/18 13:00 02/12/18 14:00 02/12/18 14:18 Temperature Pulse Rate 79 83 Respiratory Rate Blood Pressure Pulse Oximetry Pulse Oximetry [Exertion on Room Air] 83 L Pulse Oximetry [Exertion with Oxygen] 99 Pulse Oximetry [Resting on Room Air] 98 Pulse Oximetry [Resting with Oxygen] 96 02/12/18 15:00 02/12/18 16:00 02/12/18 16:49 Temperature 97.8 F Pulse Rate 78 81 80 Respiratory Rate 16 Blood Pressure 138/74 Pulse Oximetry 100 Pulse Oximetry [Exertion on Room Air] Pulse Oximetry [Exertion with Oxygen] Pulse Oximetry [Resting on Room Air] Pulse Oximetry [Resting with Oxygen] Intake & Output 02/11/18 02/12/18 02/12/18 18:59 06:59 18:59 Intake Total 720 / 720 Output Total 401 / 401 325 / 325 Balance -401 / -401 395 / 395 Weight 90.8 kg Intake: Oral 720 / 720 Output: Urine 400 / 400 325 / 325 Stool 1 / Other: # Voids 3 Date of Last Bowel Movement 02/10/18 02/10/18 02/10/18 Narrative: GENERAL: Resting in bed, in no acute distress. SKIN: Warm and dry. HEAD: Right periorbital/forehead ecchymosis improving EYES: Pupils equal and round. No scleral icterus. No injection or drainage. NECK: Trachea midline. No JVD. CARDIOVASCULAR: regular RESPIRATORY: No accessory muscle use. GASTROINTESTINAL: Abdomen soft, non-tender, MUSCULOSKELETAL: Extremities without clubbing, cyanosis, or edema. No obvious deformities. Moves all four extremities well. NEUROLOGICAL: Awake and alert. Speech fluent. Pupils equal, gross EOMs intact. Facial motor symmetric. Assessment and Plan - Plan I r Problem List (1) CKD (chronic kidney disease) stage 4, GFR 15-29 ml/min Code(s): N18.4 - Chronic kidney disease, stage 4 (severe) Status: Acute (2) Fall Code(s): W19.XXXA - Unspecified fall, initial encounter Status: Acute (3) Scalp hematoma Code(s): S00.03XA - Contusion of scalp, initial encounter Status: Acute (4) H/O stroke within last year Code(s): Z86.73 - Personal history of transient ischemic attack (TIA), and cerebral infarction without residual deficits Status: Acute (5) TBI (traumatic brain injury) Code(s): S06.9X9A - Unspecified intracranial injury with loss of consciousness of unspecified duration, initial encounter Status: Acute (6) BPH (benign prostatic hyperplasia) Code(s): N40.0 - Benign prostatic hyperplasia without lower urinary tract symptoms Status: Chronic (7) Subconjunctival hemorrhage of right eye Code(s): H11.31 - Conjunctival hemorrhage, right eye Status: Acute (8) H/O malignant neuroendocrine tumor Code(s): Z85.9 - Personal history of malignant neoplasm, unspecified Status: Resolved (9) Thrombocytopenia Code(s): D69.6 - Thrombocytopenia, unspecified Status: Chronic (10) Iron deficiency anemia Code(s): D50.9 - Iron deficiency anemia, unspecified Status: Chronic (11) S/P TAVR (transcatheter aortic valve replacement) Code(s): Z95.2 - Presence of prosthetic heart valve Status: Acute (12) Subarachnoid bleed Code(s): I60.9 - Nontraumatic subarachnoid hemorrhage, unspecified Status: Acute (13) Chronic anticoagulation Code(s): Z79.01 - [facility] (current) use of 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 Status: Ch Cardiac Status post placement of pacemaker, doing well continue neuro checks, mgt per cardiology Pulmonary: aggressive pulmonary toilette, nasotracheal suction, and breathing treatments with nebulizers. Daily PT and OT Renal: Continue to monitor closely urine output, BUN and creatinine Endocrine: Continue to Monitor serial Acu checks and SSI as needed in detail ID continue to monitor for signs of infection Continue Protonix for stress ulcer prophylaxis Continue Edin hose and SCD's for DVT prophylaxis Cleared per neurosurgery for discharge
== END 2018-02-12 18:20 | disposition home health service (06) ==
LOC: NEPE 21:06 → NEDA 22:21 → N03 02-05 00:36 → HCIS 02-09 19:12
PROVIDERS: ADMIT Hospitalist; ATTEND Hospitalist

== ENCOUNTER 2018-05-12 10:19 | Inpatient (IN) ==
[2018-05-12] MEDS ORDERED: Pantoprazole Inj 40 MG Vial IV.PUSH ONE (13:14)
--- NOTE | 2018-05-12 13:17 | ED ---
HPI General Chief complaint: Recheck/Abnormal Lab/Rx Stated complaint: Poss Blood Transfusion Time Seen by Provider: 05/12/18 12:59 History of Present Illness HPI narrative: This is an 87-year-old male with history of chronic kidney disease, iron deficiency anemia, diabetes, GERD, hypertension, bovine aortic valve, presents after being sent for evaluation of abnormal lab work. He reports that he had lab work as an outpatient 4 days ago. He was called today by his survey associate, Dr. Hooper, and was told that his hemoglobin was low and was referred to [place] for blood transfusion. The patient reports that he has had fatigue for the past few months, not worsening acutely. He denies any chest pain, shortness of breath, abdominal pain, nausea or vomiting, hematochezia, black or tarry stools, hematemesis. He was previously on Eliquis , but this was discontinued 2 weeks ago. He does currently take baby aspirin daily. He has no other complaints at this time. Related Data Home Medications Medication Instructions Recorded Confirmed aspirin 81 mg PO DAILY 02/04/18 05/12/18 atorvastatin 40 mg PO DAILY 02/04/18 05/12/18 cholecalciferol (vitamin D3) 1,000 unit PO DAILY 02/04/18 05/12/18 [Vitamin D3] coenzyme Q10 [Co Q-10] 100 mg PO DAILY 02/04/18 05/12/18 ferrous gluconate 2 mg/kg PO TID 02/04/18 05/12/18 finasteride 5 mg PO DAILY 02/04/18 05/12/18 folic acid 1 mg PO DAILY 02/04/18 05/12/18 furosemide 40 mg PO BID 02/04/18 05/12/18 insulin detemir U-100 [Levemir 18 unit SUB-Q QPM 02/04/18 05/12/18 U-100 Insulin] loratadine [Claritin] 10 mg PO DAILY 02/04/18 05/12/18 magnesium 500 mg PO DAILY 02/04/18 05/12/18 metolazone 2.5 mg PO Q OTHER DAY 02/04/18 05/12/18 metoprolol succinate [Toprol XL] 12.5 mg PO BID 02/04/18 05/12/18 polyethylene glycol 3350 [Miralax] 17 g PO DAILY PRN 02/04/18 05/12/18 potassium chloride 20 meq PO BID 02/04/18 05/12/18 pyridoxine (vitamin B6) [Vitamin 100 mg PO DAILY 02/04/18 05/12/18 B-6] tamsulosin 0.4 mg PO DAILY 02/04/18 05/12/18 Previous Rx's Medication Instructions Recorded amlodipine [Norvasc] 5 mg PO DAILY #30 tab 02/12/18 Allergies Allergy/AdvReac Type Severity Reaction Status Date / Time niacin Allergy Unknown Nausea/Vomi Verified 02/04/18 21:42 ting sitagliptin AdvReac Severe STOMACH Verified 02/04/18 21:42 PAIN Review of Systems ROS: all other systems reviewed are negative [facility] Family History Family History Other Kidney disease Patient's father is Patient's mother is Stroke Social History Social History Substance History: No History of Abuse Second Hand Smoke Exposure: No Smoking Status: Never smoker Tobacco Type: Cigarettes Years Smoked: 17 How Often Do You Have a Drink Containing Alcohol: Never Recent Travel in [facility] within the Last 8 Weeks: No Recent Out of Country Travel within the Last 8 Weeks: No Immunization History Tetanus Immunization: Unsure Exam Narrative Exam Narrative: GENERAL: Pleasant well-developed well-nourished male in no acute distress SKIN: Warm and dry. HEAD: Atraumatic. Normocephalic. EYES: Pupils equal and round. No scleral icterus. No injection or drainage. ENT: No nasal bleeding or discharge. Mucous membranes pink and moist. NECK: Trachea midline. No JVD. CARDIOVASCULAR: Regular rate and rhythm. No murmur appreciated. RESPIRATORY: No accessory muscle use. Clear to auscultation. Breath sounds equal bilaterally. GASTROINTESTINAL: Abdomen soft, non-tender, nondistended. Hepatic and splenic margins not palpable. Rectal examination reveals escudero stool which is Hemoccult positive. MUSCULOSKELETAL: No obvious deformities. No clubbing. No cyanosis. 1+ pitting edema to the lower extremities bilaterally. NEUROLOGICAL: Awake and alert. No obvious cranial nerve deficits. Motor grossly within normal limits. Normal speech. Procedures Hemaprompt Stool Procedural Steps Taken: specimen placed in appropriate test area, developer placed on specimen and control areas and controls appropriately positive and negative Hemaprompt Stool Result: positive Course Initial Documented Vital Signs Temperature 98.2 F 05/12/18 10:53 Pulse Rate 71 05/12/18 10:53 Respiratory Rate 14 05/12/18 10:53 Blood Pressure 114/55 L 05/12/18 10:53 Pulse Oximetry 100 05/12/18 10:53 Last Documented Vital Signs Temperature 98.2 F 05/12/18 10:53 Pulse Rate 71 05/12/18 12:38 Respiratory Rate 18 05/12/18 12:38 Blood Pressure 154/69 H 05/12/18 12:38 Pulse Oximetry 100 05/12/18 12:38 Medical Decision Making MDM Narrative Medical decision making narrative: The patient was placed on ECG monitoring pulse oximetry. Twelve-lead EKG ordered. Lab work will be obtained. Type and screen ordered. Hemoglobin today is 8.8 which is decreased from 10.1 in January. He also has a WBC of 3.1 and a platelet count of 68. His GFR today is 17 which is decreased from 35 in January. He was Hemoccult positive. personnel records clerk Attempted to call Dr. Hooper but was unsuccessful. The patient will be admitted for further evaluation and treatment of GI bleed, acute kidney injury. Medical Screen Exam Complete: Yes Emergency Medical Condition: Yes Differential Diagnosis Differential Diagnosis: Chronic anemia, iron deficiency anemia, upper GI bleed, lower GI bleed Lab Data Result diagrams: 05/12/18 13:36 05/12/18 13:36 Lab Results 05/12/18 05/12/18 05/12/18 Range/Units 13:36 13:36 13:36 WBC 3.1 L (4.0-11.0) th/mm3 RBC 2.73 L (4.50-5.90) mil/mm3 Hgb 8.8 L (13.0-17.0) gm/dL Hct 26.6 L (39.0-51.0) % MCV 97.5 (80.0-100.0) fL MCH 32.4 (27.0-34.0) pg MCHC 33.2 (32.0-36.0) % RDW 16.6 (11.6-17.2) % Plt Count 68 L (150-450) th/mm3 MPV 10.5 (7.0-11.0) fL Prelim Diff (Auto) Slide review pending Neut % (Auto) 76.3 H (16.0-70.0) % Lymph % (Auto) 8.8 L (9.0-44.0) % [place] % (Auto) 10.4 H (0.0-8.0) % Eos % (Auto) 3.3 (0.0-4.0) % Baso % (Auto) 1.2 (0.0-2.0) % Neut # (Auto) 2.4 (1.8-7.7) th/mm3 Lymph # (Auto) 0.3 L (1.0-4.8) th/mm3 [place] # (Auto) 0.3 (0.0-0.9) th/mm3 Eos # (Auto) 0.1 (0.0-0.4) th/mm3 Baso # (Auto) 0.0 (0.0-0.2) th/mm3 Differential Comment . PT 12.3 H (9.8-11.6) sec INR 1.2 Ratio APTT 29.4 (24.3-30.1) sec Sodium 136 (136-145) meq/L Potassium 4.2 (3.5-5.1) meq/L Chloride 99 (98-107) meq/L Carbon Dioxide 30.4 (21.0-32.0) meq/L Anion Gap 7 (5-15) meq/L BUN 78 H (7-18) mg/dL Creatinine 3.52 H (0.60-1.30) mg/dL Estimated GFR 17 L (>89) mL/min Random Glucose 104 (74-106) mg/dL Calcium 8.5 (8.5-10.1) mg/dL Magnesium 2.6 H (1.5-2.5) mg/dL Total Bilirubin 0.8 (0.2-1.0) mg/dL AST 59 H (15-37) U/L ALT 45 (12-78) U/L Alkaline Phosphatase 278 H (45-117) U/L Total Protein 7.8 (6.4-8.2) g/dL Albumin 3.3 L (3.4-5.0) g/dL Blood Type Antibody Screen 05/12/18 Range/Units 13:36 WBC (4.0-11.0) th/mm3 RBC (4.50-5.90) mil/mm3 Hgb (13.0-17.0) gm/dL Hct (39.0-51.0) % MCV (80.0-100.0) fL MCH (27.0-34.0) pg MCHC (32.0-36.0) % RDW (11.6-17.2) % Plt Count (150-450) th/mm3 MPV (7.0-11.0) fL Prelim Diff (Auto) Neut % (Auto) (16.0-70.0) % Lymph % (Auto) (9.0-44.0) % [place] % (Auto) (0.0-8.0) % Eos % (Auto) (0.0-4.0) % Baso % (Auto) (0.0-2.0) % Neut # (Auto) (1.8-7.7) th/mm3 Lymph # (Auto) (1.0-4.8) th/mm3 [place] # (Auto) (0.0-0.9) th/mm3 Eos # (Auto) (0.0-0.4) th/mm3 Baso # (Auto) (0.0-0.2) th/mm3 Differential Comment PT (9.8-11.6) sec INR Ratio APTT (24.3-30.1) sec Sodium (136-145) meq/L Potassium (3.5-5.1) meq/L Chloride (98-107) meq/L Carbon Dioxide (21.0-32.0) meq/L Anion Gap (5-15) meq/L BUN (7-18) mg/dL Creatinine (0.60-1.30) mg/dL Estimated GFR (>89) mL/min Random Glucose (74-106) mg/dL Calcium (8.5-10.1) mg/dL Magnesium (1.5-2.5) mg/dL Total Bilirubin (0.2-1.0) mg/dL AST (15-37) U/L ALT (12-78) U/L Alkaline Phosphatase (45-117) U/L Total Protein (6.4-8.2) g/dL Albumin (3.4-5.0) g/dL Blood Type A Positive Antibody Screen Negative Discharge Plan Discharge Disposition Patient Disposition: 30 Still Patient Discharge Condition Condition: Stable Discharge Details Diagnosis: GI bleed, Acute kidney injury Physicians Team ED Provider: Ruth Victoria ED Midlevel Provider: John Fairchild Rxs /Orders / Referrals /Forms Prescriptions: No Action furosemide 40 mg Tablet 40 mg PO BID RF: 0 metolazone 2.5 mg Tablet 2.5 mg PO Q OTHER DAY RF: 0 atorvastatin 40 mg Tablet 40 mg PO DAILY RF: 0 polyethylene glycol 3350 [Miralax] 17 gram Powder In Packet 17 g PO DAILY PRN (Reason: Constipation) RF: 0 tamsulosin 0.4 mg Capsule,Extended Release 24hr 0.4 mg PO DAILY RF: 0 aspirin 81 mg Tablet,Chewable 81 mg PO DAILY RF: 0 folic acid 1 mg Tablet 1 mg PO DAILY RF: 0 magnesium 250 mg Tablet 500 mg PO DAILY RF: 0 pyridoxine (vitamin B6) [Vitamin B-6] 100 mg Tablet 100 mg PO DAILY RF: 0 metoprolol succinate [Toprol XL] 25 mg Tablet Extended Release 24 Hr 12.5 mg PO BID RF: 0 finasteride 5 mg Tablet 5 mg PO DAILY RF: 0 loratadine [Claritin] 10 mg Tablet 10 mg PO DAILY RF: 0 coenzyme Q10 [Co Q-10] 100 mg Capsule 100 mg PO DAILY RF: 0 insulin detemir U-100 [Levemir U-100 Insulin] 100 unit/mL Solution 18 unit SUB-Q QPM RF: 0 cholecalciferol (vitamin D3) [Vitamin D3] 1,000 unit Tablet 1,000 unit PO DAILY RF: 0 ferrous gluconate 236 mg (27 mg iron) Tablet 2 mg/kg PO TID RF: 0 potassium chloride 20 mEq Tablet Extended Release 20 meq PO BID RF: 0 amlodipine [Norvasc] 5 mg Tablet 5 mg PO DAILY Qty: 30 RF: 0 Status ED Status: With Doctor
[2018-05-12 13:57] LABS: Baso % (Auto) 1.2 % (0.0-2.0); Eos # (Auto) 0.1 th/mm3 (0.0-0.4); Eos % (Auto) 3.3 % (0.0-4.0); Hematocrit 26.6 % (39.0-51.0); Hemoglobin 8.8 gm/dL (13.0-17.0); Lymph # (Auto) 0.3 th/mm3 (1.0-4.8); Lymph % (Auto) 8.8 % (9.0-44.0); Mean Corpuscular HGB Conc 33.2 % (32.0-36.0); Mean Corpuscular Hemoglobin 32.4 pg (27.0-34.0); Mean Corpuscular Volume 97.5 fL (80.0-100.0); Mean Platelet Volume 10.5 fL (7.0-11.0); Mono # (Auto) 0.3 th/mm3 (0.0-0.9); Mono % (Auto) 10.4 % (0.0-8.0); Neut # (Auto) 2.4 th/mm3 (1.8-7.7); Neut % (Auto) 76.3 % (16.0-70.0); Platelet Count 68 th/mm3 (150-450); Red Blood Count 2.73 mil/mm3 (4.50-5.90); Red Cell Distribution Width 16.6 % (11.6-17.2); White Blood Count 3.1 th/mm3 (4.0-11.0)
[2018-05-12 14:06] LABS: Activated Partial Thrombo Time 29.4 sec (24.3-30.1); INR 1.2 Ratio; Prothrombin Time 12.3 sec (9.8-11.6)
[2018-05-12 14:19] LABS: Alanine Aminotransferase 45 U/L (12-78); Albumin 3.3 g/dL (3.4-5.0); Anion Gap 7 meq/L (5-15); Aspartate Aminotransferase 59 U/L (15-37); Blood Urea Nitrogen 78 mg/dL (7-18); Calcium 8.5 mg/dL (8.5-10.1); Carbon Dioxide 30.4 meq/L (21.0-32.0); Chloride 99 meq/L (98-107); Glomerular Filtration Rate 17 mL/min (>89); Glucose,Random 104 mg/dL (74-106); Magnesium 2.6 mg/dL (1.5-2.5); Potassium 4.2 meq/L (3.5-5.1); Sodium 136 meq/L (136-145)
[2018-05-12 14:21] LABS: Alkaline Phosphatase 278 U/L (45-117); Total Protein 7.8 g/dL (6.4-8.2)
[2018-05-12] MEDS ORDERED: Zolpidem Tartrate 5 MG Tablet PO PRN (14:51)
[2018-05-12] MEDS ORDERED: Acetaminophen 325 MG Tablet PO PRN (14:51)
[2018-05-12] MEDS ORDERED: Bisacodyl 10 MG Supp RECTAL PRN (14:51)
[2018-05-12] MEDS ORDERED: Naloxone Inj 0.4 MG/ML Vial IV.PUSH PRN (14:54)
[2018-05-12] MEDS ORDERED: Morphine Inj 4 MG/ML Vial IV.PUSH PRN ×3 (14:54)
[2018-05-12] MEDS ORDERED: Morphine Sulfate Inj 2 MG/ML Vial IV.PUSH PRN (14:54)
[2018-05-12] MEDS ORDERED: Polyethylene Glycol 3350 17 GM Packet PO PRN (15:01)
[2018-05-12] MEDS ORDERED: Dextrose 50% in Water 50 ML Vial IV.PUSH PRN (15:02)
[2018-05-12] MEDS: Pantoprazole Inj 40 MG Vial IV.PUSH SCH ×2 (15:02→20:40)
[2018-05-12] MEDS: Sod Chloride 0.9% Inj 1,000 ML IV.CONT SCH (15:15)
[2018-05-12 15:17] LABS: Platelet Morphology Normal (Normal)
--- NOTE | 2018-05-12 15:50 | US ---
EXAM DATE: 05/12/2018 12:00 AM EDT AGE/SEX: 87 years / Male INDICATIONS: Increased BUN/Creatnine. CLINICAL DATA: This is the patient's subsequent encounter. Patient reports that signs and symptoms h ave been present for 4 - 6 months and indicates a pain score of 0/10. MEDICAL/SURGICAL HISTORY: . Chronic obstructive pulmonary disease. Diabetes. Gastroesophageal r eflux disease. Chronic Kidney Disease. Hypertension. Stroke. . 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 Cholecystectomy. Tonsillectomy. Cataract removal with insertion of prosthetic lens. Small surya l resection. Colonoscopy. Transcatheter Aortic Valve Replacement (bioprosthetic). [place] [facility] [place]. . MEASUREMENTS: Right Kidney:__14.0 x 5.0 x 5.2 cm Left Kidney:__11.2 x 4.3 x 5.0 cm FINDINGS: Right Kidney: Increased echotexture. No solid mass or hydronephrosis. Approximate 7.7 cm simple cyst is present in midpole. Left Kidney: Increased echotexture. No solid mass or hydronephrosis. Approximate 1.7 cm simple cyst i s present in midpole. Bladder: Within normal limits given the degree of distension. Other: Large amount of ascites is seen. CONCLUSION: 1. Bilateral renal cysts with significant amount of ascites. Electronically signed by: David Silver MD 05/12/2018 3:49 PM EDT
--- NOTE | 2018-05-12 17:12 | P.HPIM ---
History of Present Illness Service: [facility] Primary Care Physician: Praveen Tejeda Chief Complaint: ABNORMAL LABS- TOLD TO COME TO HOSPITAL History of Present Illness: Patient is an 87-year-old male with an extensive history of chronic kidney disease, iron deficiency anemia, diabetes mellitus, GERD, hypertension, history of a TAVR and recent permanent pacemaker as well as aortic valve surgery. Patient was noted to have abnormal lab work. That he had outpatient 4 days ago. Was called by his business development sales executive Dr. RANDALL and told to come to to the hospital for transfusion and evaluation. The patient reports that he has been fatigued over the past few months, but not worse lately or acutely. He denies any chest pain, denies any shortness of breath, denies any abdominal pain , denies any nausea or vomiting, denies any earache, denies any black or tarry stools, denies any hematemesis. Had recently been on Eliquis, but this is been discontinued 2 weeks ago. He still takes a baby aspirin daily. Denies any other complaints at this time. Was also sent by his post closing specialist regarding his worsening renal functions. Again his past medical history includes hyperlipidemia,, BPH, diabetes mellitus , seasonal allergies, hypertension, constipation, history of hemorrhoids, Patient was noted to have a heme positive stool and will be admitted and consult nephrology as well as gastroenterology Family history is positive for hypertension and possible diabetes Inpatient Certification: I certify that the inpatient services were ordered in accordance with Medicare regulations governing the order. This includes certification that hospital inpatient services are reasonable and necessary and in the case of services not specified as inpatient-only under 42 CFR 419.22(n), that they are appropriately provided as inpatient services in accordance to with the 2-midnight benchmark under 43 CFR 412.3(e) Estimated Total Length of Stay (Days): 3 Plans for Post Hospital Care: Not yet determined Review of Systems All other systems reviewed negative except as stated in HPI [facility] - History History Provided By: Patient - Medical History Medical History: Medical History (Last Updated 05/12/18 @ 16:55 by Oneil Carmona DO) BPH (benign prostatic hyperplasia) Pacemaker Afib COPD (chronic obstructive pulmonary disease) Diabetes GERD (gastroesophageal reflux disease) Hx of Moh's micrographic surgery for skin cancer Hx of malignant neuroendocrine tumor Hypertension Stroke - Surgical History Surgical History: Surgical History (Last Reviewed 05/12/18 @ 16:56 by Oneil Carmona DO) H/O cataract removal with insertion of prosthetic lens H/O resection of small bowel History of cholecystectomy History of cholecystectomy History of loop recorder History of tonsillectomy Hx of colonoscopy S/p TAVR (transcatheter aortic valve replacement), bioprosthetic - Family History Family History: Family History (Last Updated 05/12/18 @ 16:56 by Oneil Carmona DO) Other Family history of hypertension Kidney disease Patient's father is Patient's mother is Stroke - Social History I have reviewed the patient's Social History: Yes - Tobacco History Second Hand Smoke Exposure: No Tobacco Use In Past 30 Days: No Smoking Status: Never smoker Tobacco Type: Cigarettes Years Smoked: 17 - Alcohol History How Often Do You Have a Drink Containing Alcohol: Never - Substance Use History Substance History: No History of Abuse - Travel History History of Recent Travel: No Recent Travel in the [place] Within the Last 8 Weeks: No Recent Travel Out of the Country Within the Last 8 Weeks: No - Immunization History Tetanus Immunization: Unsure Medications and Allergies Active Medications: Active Medications Acetaminophen (Tylenol) 650 mg PO Q4H PRN PRN Reason: Temp > 100.4 Hydrocodone Bitart/Acetaminophen ([place] 5/325) 1 tab PO Q4H PRN PRN Reason: PAIN SCALE 3 TO 5 Hydrocodone Bitart/Acetaminophen ([place] 10/325) 1 tab PO Q4H PRN PRN Reason: PAIN SCALE 6 TO 10 Al Hydroxide/Mg Hydroxide (Milk Of Magnstormy Liq) 30 ml PO Q12H PRN PRN Reason: Mild Constipation Amlodipine Besylate (Norvasc) 5 mg PO DAILY [facility]ÍREZ Atorvastatin Calcium (Lipitor) 40 mg PO DAILY [facility]ÍREZ Bisacodyl (Dulcolax Supp) 10 mg RECTAL DAILY PRN PRN Reason: SEVERE CONSITIPATION Dextrose (D50w Vial) 50 ml IV.PUSH UNSCH PRN PRN Reason: PER HYPOGLYCEMIA PROTOCOL Finasteride (Proscar) 5 mg PO DAILY [facility]ÍREZ Folic Acid (Folic Acid) 1 mg PO DAILY [facility] Glucagon (Glucagon Inj) 1 mg OTHER PRN PRN PRN Reason: for Hypoglycemia Protocol Sodium Chloride (Ns Inj) 1,000 mls @ 75 mls/hr IV.CONT .[id number] RAMÍREZ Last Admin: 05/12/18 15:15 Dose: 75 mls/hr Insulin Aspart (Novolog Insulin Correctional Sugar Inj) 0 unit SQ ACHS AND 3AM [facility]; Protocol Insulin Detemir (Levemir Inj) 18 unit SQ QPM [facility] Lactulose (Lactulose Liq) 30 ml PO DAILY PRN PRN Reason: SEVERE CONSITIPATION Loratadine (Claritin) 10 mg PO DAILY [facility] Metoprolol Succinate (Toprol Xl) 12.5 mg PO BID [facility] Miscellaneous (Pill Splitter) 1 each OTHER UNSCH [facility] Morphine Sulfate (Morphine Inj) 2 mg IV.PUSH Q3H PRN PRN Reason: PAIN 3-5; IF UABLE TO TAKE PO Morphine Sulfate (Morphine Inj) 4 mg IV.PUSH Q3H PRN PRN Reason: BREAKTHROUGH PAIN Morphine Sulfate (Morphine Inj) 4 mg IV.PUSH Q3H PRN PRN Reason: PAIN 6-10;IF UNABLE TO TAKE PO Morphine Sulfate (Morphine Inj) 4 mg IV.PUSH Q1H PRN PRN Reason: Pain Scale 7-10 (Intractable) Naloxone HCl (Narcan Inj) 0.4 mg IV.PUSH UNSCH PRN PRN Reason: SEE LABEL COMMENTS Ondansetron HCl (Zofran Inj) 4 mg IV.PUSH Q6H PRN PRN Reason: NAUSEA OR VOMITING Pantoprazole Sodium (Protonix Inj) 40 mg IV.PUSH BID [facility] Last Admin: 05/12/18 15:02 Dose: Not Given Polyethylene Glycol (Miralax) 17 gm PO DAILY PRN PRN Reason: Constipation Pyridoxine HCl (Vitamin B-6) 100 mg PO DAILY [facility] Senna/Docusate Sodium (Ora-Colace) 1 tab PO BID [facility] Sennosides (Senokot) 17.2 mg PO Q12H PRN PRN Reason: Moderate Constipation Sodium Chloride (Ns Flush) 2 ml IV.FLUSH BID [facility] Sodium Chloride (Ns Flush) 2 ml IV.FLUSH PRN PRN PRN Reason: FLUSH AFTER USING IV ACCESS Tamsulosin HCl (Flomax) 0.4 mg PO DAILY [facility] Vitamin D (Vitamin D3) 1,000 unit PO DAILY [facility] Zolpidem Tartrate (Ambien) 5 mg PO HS PRN PRN Reason: INSOMNIA Allergies Allergy/AdvReac Type Severity Reaction Status Date / Time niacin Allergy Unknown Nausea/Vomi Verified 02/04/18 21:42 ting sitagliptin AdvReac Severe STOMACH Verified 02/04/18 21:42 PAIN Home Medications Medication Instructions Recorded Confirmed Type aspirin 81 mg PO DAILY 02/04/18 05/12/18 History atorvastatin 40 mg PO DAILY 02/04/18 05/12/18 History cholecalciferol (vitamin D3) 1,000 unit PO DAILY 02/04/18 05/12/18 History [Vitamin D3] coenzyme Q10 [Co Q-10] 100 mg PO DAILY 02/04/18 05/12/18 History ferrous gluconate 2 mg/kg PO TID 02/04/18 05/12/18 History finasteride 5 mg PO DAILY 02/04/18 05/12/18 History folic acid 1 mg PO DAILY 02/04/18 05/12/18 History furosemide 40 mg PO BID 02/04/18 05/12/18 History insulin detemir U-100 [Levemir 18 unit SUB-Q QPM 02/04/18 05/12/18 History U-100 Insulin] loratadine [Claritin] 10 mg PO DAILY 02/04/18 05/12/18 History magnesium 500 mg PO DAILY 02/04/18 05/12/18 History metolazone 2.5 mg PO Q OTHER DAY 02/04/18 05/12/18 History metoprolol succinate [Toprol XL] 12.5 mg PO BID 02/04/18 05/12/18 History polyethylene glycol 3350 [Miralax] 17 g PO DAILY PRN 02/04/18 05/12/18 History potassium chloride 20 meq PO BID 02/04/18 05/12/18 History pyridoxine (vitamin B6) [Vitamin 100 mg PO DAILY 02/04/18 05/12/18 History B-6] tamsulosin 0.4 mg PO DAILY 02/04/18 05/12/18 History Exam Vital signs: Vital Signs 05/12/18 10:53 05/12/18 12:38 05/12/18 15:13 Temperature 98.2 F Pulse Rate 71 71 65 Respiratory Rate 14 18 18 Blood Pressure 114/55 L 154/69 H 114/52 L Pulse Oximetry 100 100 100 Intake & Output 05/11/18 05/12/18 05/12/18 18:59 06:59 18:59 Weight 86.183 kg Narrative: GENERAL: Awake alert and oriented x3 talkative and cooperative SKIN: Warm and dry. HEAD: Atraumatic. Normocephalic. EYES: Pupils equal and round. No scleral icterus. No injection or drainage. ENT: No nasal bleeding or discharge. Mucous membranes pink and moist. NECK: Trachea midline. No JVD. Supple CARDIOVASCULAR: Regular rate and rhythm. S1-S2 no S3 or S4 permanent pacemaker RESPIRATORY: No accessory muscle use. Clear to auscultation. Breath sounds equal bilaterally. GASTROINTESTINAL: Abdomen soft, non-tender, nondistended. Hepatic and splenic margins not palpable. MUSCULOSKELETAL: Extremities without clubbing, cyanosis, or edema. No obvious deformities. NEUROLOGICAL: Awake and alert. No obvious cranial nerve deficits. Motor grossly within normal limits. Five out of 5 muscle strength in the arms and legs. Normal speech. PSYCHIATRIC: Appropriate mood and affect; insight and judgment normal. Results - Labs CBC & Chem 7: 05/12/18 13:36 05/12/18 13:36 Labs: Short CBC 05/12/18 Range/Units 13:36 WBC 3.1 L (4.0-11.0) th/mm3 Hgb 8.8 L (13.0-17.0) gm/dL Hct 26.6 L (39.0-51.0) % Plt Count 68 L (150-450) th/mm3 BMP 05/12/18 13:36 Sodium 136 Potassium 4.2 Chloride 99 Carbon Dioxide 30.4 BUN 78 H Creatinine 3.52 H Calcium 8.5 Liver Function 05/12/18 Range/Units 13:36 Total Bilirubin 0.8 (0.2-1.0) mg/dL AST 59 H (15-37) U/L ALT 45 (12-78) U/L Alkaline Phosphatase 278 H (45-117) U/L Albumin 3.3 L (3.4-5.0) g/dL - Imaging Impressions Abdomen/Bladder Ultrasound 05/12/18 00:00 CONCLUSION: 1. Bilateral renal cysts with significant amount of ascites. Caprini VTE Risk Assessment Caprini VTE Risk Assessment: Moderate/High Risk (score >= 2) Caprini Risk Assessment Model: Point Value = 1 Point Value = 2 Point Value = 3 Point Value = 5 Age 41-60 Minor surgery BMI > 25 kg/m2 Swollen legs Varicose veins or History of unexplained or recurrent spontaneous Oral contraceptives or hormone replacement Sepsis (< 1 month) Serious lung disease, including pneumonia (< 1 month) Abnormal pulmonary function Acute myocardial infarction Congestive heart failure (< 1 month) History of inflammatory bowel disease Medical patient at bed rest Age 61-74 Arthroscopic surgery Major open surgery (> 45 min) Laparoscopic surgery (> 45 min) Malignancy Confined to bed (> 72 hours) Immobilizing plaster cast Central venous access Age >= 75 History of VTE Family history of VTE Factor V Leiden Prothrombin [id number] Lupus anticoagulant Anticardiolipin antibodies Elevated serum homocysteine Heparin-induced thrombocytopenia Other congenital or acquired thrombophilia Stroke (< 1 month) Elective arthroplasty Hip, pelvis, or leg fracture Acute spinal cord injury (< 1 month) Prophylaxis Regimen: Total Risk Factor Score Risk Level Prophylaxis Regimen 0-1 Low Early ambulation 2 Moderate Order ONE of the following: *Sequential Compression Device (SCD) *Heparin 5000 units SQ BID 3-4 Higher Order ONE of the following medications: *Heparin 5000 units SQ TID *Enoxaparin/Lovenox 40 mg SQ daily (WT < 150 kg, CrCl > 30 mL/min) *Enoxaparin/Lovenox 30 mg SQ daily (WT < 150 kg, CrCl > 10-29 mL/min) *Enoxaparin/Lovenox 30 mg SQ BID (WT < 150 kg, CrCl > 30 mL/min) AND/OR *Sequential Compression Device (SCD) 5 or more Highest Order ONE of the following medications: *Heparin 5000 units SQ TID (Preferred with Epidurals) *Enoxaparin/Lovenox 40 mg SQ daily (WT < 150 kg, CrCl > 30 mL/min) *Enoxaparin/Lovenox 30 mg SQ daily (WT < 150 kg, CrCl > 10-29 mL/min) *Enoxaparin/Lovenox 30 mg SQ BID (WT < 150 kg, CrCl > 30 mL/min) AND *Sequential Compression Device (SCD) Assessment and Plan - Plan GI bleed with decreased lab counts and chronic anemia. 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 Regarding this and continue on PPI twice daily History of hemorrhoids we will monitor hemoglobins and hematocrit and defer to GI regarding this Hypertension resume home medications as long as it is not nephrotoxic Chronic constipation resume home medications for this Chronic anticoagulation currently on hold due to weakness and bleeding recent History of gout History of recent subarachnoid hemorrhage Will check hemoglobin and hematocrit every 8 hours x3 will consult gastroenterology will defer to them regarding any need for endoscopies will continue on a clear liquid diet at this time will monitor labs get a.m. labs CBC CMP TSH free T4 hemoglobin A1c magnesium and a phosphorus Code Status: Full code Discussed Condition With: RN and patient and emergency room physician and family and GI Discharge Planning: Pending clearance by GI and nephrology
--- NOTE | 2018-05-12 17:32 | P.HPNP ---
History of Present Illness Service: Nephrology Primary Care Physician: Praveen Tejeda Chief Complaint: ABNORMAL LABS- TOLD TO COME TO HOSPITAL History of Present Illness: This is an 87 year old male with stage III CKD, chronic thrombocytopenia, s/p TAVR, s/p permanent pacemaker, history of SAH, admitted to the hospital because of anemia. He was advised to come to the ER by his hand candy cutter. Patient had been restarted on Apixaban about 2 weeks ago. In ER, apparently he had a Heme positive stool/rectal exam. His renal function has declined, baseline creatinine is around 1.6-1.7. When I noted that his renal function had declined significantly, we called him to get to the ER, only to find out that he is already in the hospital. - Diagnosis (1) [id number] kidney injury (2) Anemia (3) Ascites (4) Atrial fibrillation Inpatient Certification: I certify that the inpatient services were ordered in accordance with Medicare regulations governing the order. This includes certification that hospital inpatient services are reasonable and necessary and in the case of services not specified as inpatient-only under 42 CFR 419.22(n), that they are appropriately provided as inpatient services in accordance to with the 2-midnight benchmark under 43 CFR 412.3(e) Estimated Total Length of Stay (Days): 3 Plans for Post Hospital Care: Not yet determined Review of Systems Constitutional: Reports weakness Cardiovascular: Reports shortness of breath, Reports shortness of breath with activity, Denies chest pain, Denies chest pain at rest Gastrointestinal: Reports abdominal pain, Reports black, tarry stools Comments: abdominal distension Skin/Breast: Denies bleeding lesions Neurologic: Denies fainting, Denies radiating pain, Denies tremor(s) Hematologic/Lymphatic: Denies easy bleeding PMFSH - History History Provided By: Patient - Medical History Medical History: Medical History (Last Reviewed 05/13/18 @ 08:11 by Nunu Clark) BPH (benign prostatic hyperplasia) Pacemaker Afib COPD (chronic obstructive pulmonary disease) Diabetes GERD (gastroesophageal reflux disease) Hx of Moh's micrographic surgery for skin cancer Hx of malignant neuroendocrine tumor Hypertension Stroke - Surgical History Surgical History: Surgical History (Last Reviewed 05/13/18 @ 08:11 by Nunu Clark) H/O cataract removal with insertion of prosthetic lens H/O resection of small bowel History of cholecystectomy History of cholecystectomy History of loop recorder History of tonsillectomy Hx of colonoscopy S/p TAVR (transcatheter aortic valve replacement), bioprosthetic - Family History Family History: Family History (Last Updated 05/12/18 @ 16:56 by Oneil Carmona DO) Other Family history of hypertension Kidney disease Patient's father is Patient's mother is Stroke - Tobacco History Second Hand Smoke Exposure: No Tobacco Use In Past 30 Days: No Smoking Status: Never smoker Tobacco Type: Cigarettes Years Smoked: 17 - Alcohol History How Often Do You Have a Drink Containing Alcohol: Never - Substance Use History Substance History: No History of Abuse - Travel History History of Recent Travel: No Recent Travel in the [place] Within the Last 8 Weeks: No Recent Travel Out of the Country Within the Last 8 Weeks: No - Immunization History Tetanus Immunization: Unsure Medications and Allergies Active Medications: Active Medications Acetaminophen (Tylenol) 650 mg PO Q4H PRN PRN Reason: Temp > 100.4 Hydrocodone Bitart/Acetaminophen ([place] 5/325) 1 tab PO Q4H PRN PRN Reason: PAIN SCALE 3 TO 5 Hydrocodone Bitart/Acetaminophen ([place] 10/325) 1 tab PO Q4H PRN PRN Reason: PAIN SCALE 6 TO 10 Al Hydroxide/Mg Hydroxide (Milk Of Magnesia Liq) 30 ml PO Q12H PRN PRN Reason: Mild Constipation Amlodipine Besylate (Norvasc) 5 mg PO DAILY RAMÍREZ Atorvastatin Calcium (Lipitor) 40 mg PO DAILY RAMÍREZ Bisacodyl (Dulcolax Supp) 10 mg RECTAL DAILY PRN PRN Reason: SEVERE CONSITIPATION Dextrose (D50w Vial) 50 ml IV.PUSH UNSCH PRN PRN Reason: PER HYPOGLYCEMIA PROTOCOL Finasteride (Proscar) 5 mg PO DAILY RAMÍREZ Folic Acid (Folic Acid) 1 mg PO DAILY RAMÍREZ Glucagon (Glucagon Inj) 1 mg OTHER PRN PRN PRN Reason: for Hypoglycemia Protocol Sodium Chloride (Ns Inj) 1,000 mls @ 75 mls/hr IV.CONT .[id number] RAMÍREZ Last Admin: 05/12/18 15:15 Dose: 75 mls/hr Insulin Aspart (Novolog Insulin Correctional Sugar Inj) 0 unit SQ ACHS AND 3AM RAMÍREZ; Protocol Insulin Detemir (Levemir Inj) 18 unit SQ QPM RAMÍREZ Lactulose (Lactulose Liq) 30 ml PO DAILY PRN PRN Reason: SEVERE CONSITIPATION Loratadine (Claritin) 10 mg PO DAILY [facility] Metoprolol Succinate (Toprol Xl) 12.5 mg PO BID [facility] Miscellaneous (Pill Splitter) 1 each OTHER UNSCH [facility] Morphine Sulfate (Morphine Inj) 2 mg IV.PUSH Q3H PRN PRN Reason: PAIN 3-5; IF UABLE TO TAKE PO Morphine Sulfate (Morphine Inj) 4 mg IV.PUSH Q3H PRN PRN Reason: BREAKTHROUGH PAIN Morphine Sulfate (Morphine Inj) 4 mg IV.PUSH Q3H PRN PRN Reason: PAIN 6-10;IF UNABLE TO TAKE PO Morphine Sulfate (Morphine Inj) 4 mg IV.PUSH Q1H PRN PRN Reason: Pain Scale 7-10 (Intractable) Naloxone HCl (Narcan Inj) 0.4 mg IV.PUSH UNSCH PRN PRN Reason: SEE LABEL COMMENTS Ondansetron HCl (Zofran Inj) 4 mg IV.PUSH Q6H PRN PRN Reason: NAUSEA OR VOMITING Pantoprazole Sodium (Protonix Inj) 40 mg IV.PUSH BID [facility] Last Admin: 05/12/18 15:02 Dose: Not Given Polyethylene Glycol (Miralax) 17 gm PO DAILY PRN PRN Reason: Constipation Pyridoxine HCl (Vitamin B-6) 100 mg PO DAILY [facility] Senna/Docusate Sodium (Ora-Colace) 1 tab PO BID [facility] Sennosides (Senokot) 17.2 mg PO Q12H PRN PRN Reason: Moderate Constipation Sodium Chloride (Ns Flush) 2 ml IV.FLUSH BID [facility] Sodium Chloride (Ns Flush) 2 ml IV.FLUSH PRN PRN PRN Reason: FLUSH AFTER USING IV ACCESS Tamsulosin HCl (Flomax) 0.4 mg PO DAILY [facility] Vitamin D (Vitamin D3) 1,000 unit PO DAILY [facility] Zolpidem Tartrate (Ambien) 5 mg PO HS PRN PRN Reason: INSOMNIA Allergies Allergy/AdvReac Type Severity Reaction Status Date / Time niacin Allergy Unknown Nausea/Vomi Verified 02/04/18 21:42 ting sitagliptin AdvReac Severe STOMACH Verified 02/04/18 21:42 PAIN Home Medications Medication Instructions Recorded Confirmed Type aspirin 81 mg PO DAILY 02/04/18 05/12/18 History atorvastatin 40 mg PO DAILY 02/04/18 05/12/18 History cholecalciferol (vitamin D3) 1,000 unit PO DAILY 02/04/18 05/12/18 History [Vitamin D3] coenzyme Q10 [Co Q-10] 100 mg PO DAILY 02/04/18 05/12/18 History ferrous gluconate 2 mg/kg PO TID 02/04/18 05/12/18 History finasteride 5 mg PO DAILY 02/04/18 05/12/18 History folic acid 1 mg PO DAILY 02/04/18 05/12/18 History furosemide 40 mg PO BID 02/04/18 05/12/18 History insulin detemir U-100 [Levemir 18 unit SUB-Q QPM 02/04/18 05/12/18 History U-100 Insulin] loratadine [Claritin] 10 mg PO DAILY 02/04/18 05/12/18 History magnesium 500 mg PO DAILY 02/04/18 05/12/18 History metolazone 2.5 mg PO Q OTHER DAY 02/04/18 05/12/18 History metoprolol succinate [Toprol XL] 12.5 mg PO BID 02/04/18 05/12/18 History polyethylene glycol 3350 [Miralax] 17 g PO DAILY PRN 02/04/18 05/12/18 History potassium chloride 20 meq PO BID 02/04/18 05/12/18 History pyridoxine (vitamin B6) [Vitamin 100 mg PO DAILY 02/04/18 05/12/18 History B-6] tamsulosin 0.4 mg PO DAILY 02/04/18 05/12/18 History Exam Vital signs: Vital Signs 05/12/18 10:53 05/12/18 12:38 05/12/18 15:13 Temperature 98.2 F Pulse Rate 71 71 65 Respiratory Rate 14 18 18 Blood Pressure 114/55 L 154/69 H 114/52 L Pulse Oximetry 100 100 100 05/12/18 16:00 Temperature 97.1 F L Pulse Rate 72 Respiratory Rate 17 Blood Pressure 119/67 Pulse Oximetry 100 Intake & Output 05/11/18 05/12/18 05/12/18 18:59 06:59 18:59 Weight 86.183 kg - Constitutional no acute distress, average body habitus - Routine HEENT Exam Head: Present: normocephalic, atraumatic Eye: Present: EOMI, PERRL ENT: Present: mucous membranes moist - Routine Neck Exam Present: supple, full ROM. Absent: JVD, lymphadenopathy, thyromegaly - Routine Respiratory Exam Present: decreased breath sounds, CTA bilaterally - Routine Cardiovascular Exam Present: S1, S2 - Routine Abdominal Exam Present: normoactive bowel sounds Comments: abdomen is distended, firm. He has tense ascites. - Routine Extremities Exam Absent: cyanosis, clubbing - Routine Skin Exam Present: intact - Routine Neurological Exam Present: alert, oriented X3, CN II-XII intact, normal speech. Absent: tremors Results - Lab Results 05/13/18 01:12 05/12/18 13:36 Most recent lab results Calcium 8.5 mg/dL (8.5-10.1) 05/12/18 13:36 Magnesium 2.6 mg/dL (1.5-2.5) H 05/12/18 13:36 Caprini VTE Risk Assessment Caprini VTE Risk Assessment: Moderate/High Risk (score >= 2) Caprini Risk Assessment Model: Point Value = 1 Point Value = 2 Point Value = 3 Point Value = 5 Age 41-60 Minor surgery BMI > 25 kg/m2 Swollen legs Varicose veins or History of unexplained or recurrent spontaneous Oral contraceptives or hormone replacement Sepsis (< 1 month) Serious lung disease, including pneumonia (< 1 month) Abnormal pulmonary function Acute myocardial infarction Congestive heart failure (< 1 month) History of inflammatory bowel disease Medical patient at bed rest Age 61-74 Arthroscopic surgery Major open surgery (> 45 min) Laparoscopic surgery (> 45 min) Malignancy Confined to bed (> 72 hours) Immobilizing plaster cast Central venous access Age >= 75 History of VTE Family history of VTE Factor V Leiden Prothrombin [id number] Lupus anticoagulant Anticardiolipin antibodies Elevated serum homocysteine Heparin-induced thrombocytopenia Other congenital or acquired thrombophilia Stroke (< 1 month) Elective arthroplasty Hip, pelvis, or leg fracture Acute spinal cord injury (< 1 month) Prophylaxis Regimen: Total Risk Factor Score Risk Level Prophylaxis Regimen 0-1 Low Early ambulation 2 Moderate Order ONE of the following: *Sequential Compression Device (SCD) *Heparin 5000 units SQ BID 3-4 Higher Order ONE of the following medications: *Heparin 5000 units SQ TID *Enoxaparin/Lovenox 40 mg SQ daily (WT < 150 kg, CrCl > 30 mL/min) *Enoxaparin/Lovenox 30 mg SQ daily (WT < 150 kg, CrCl > 10-29 mL/min) *Enoxaparin/Lovenox 30 mg SQ BID (WT < 150 kg, CrCl > 30 mL/min) AND/OR *Sequential Compression Device (SCD) 5 or more Highest Order ONE of the following medications: *Heparin 5000 units SQ TID (Preferred with Epidurals) *Enoxaparin/Lovenox 40 mg SQ daily (WT < 150 kg, CrCl > 30 mL/min) *Enoxaparin/Lovenox 30 mg SQ daily (WT < 150 kg, CrCl > 10-29 mL/min) *Enoxaparin/Lovenox 30 mg SQ BID (WT < 150 kg, CrCl > 30 mL/min) AND *Sequential Compression Device (SCD) Assessment and Plan - Assessment (1) Azmqq-dg-iostqth kidney injury Code(s): N17.9 - Acute kidney failure, unspecified; N18.9 - Chronic kidney disease, unspecified Status: Acute Plan: could be due to renal hypoperfusion, but he also has ascites. MILLI could be due to increased renal vein pressure, he may need therapeutic and diagnostic paracentesis. Etiology of ascites is unclear, could be due to transudative, but rule out malignancy. 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 If therapeutic paracentesis is considered, recommend Albumin infusion. Agree with cautious hydration at this time. Avoid nephrotoxic agents. Monitor. (2) Anemia Code(s): D64.9 - Anemia, unspecified Status: Acute Plan: Also has thrombocytopenia and leukopenia. Possible GI bleed as well. GI on the case, endoscopy planned. Consider Hem/Onc evaluation. (3) Ascites Code(s): R18.8 - Other ascites Status: Acute Plan: See above. Etiology needs to be determined. (4) Atrial fibrillation Code(s): I48.91 - Unspecified atrial fibrillation Status: Acute Plan: Anticoagulation held due to anemia and GI bleeding. - Attending Attestation Thanks for the consult.
--- NOTE | 2018-05-12 17:43 | P.CONGI ---
History of Present Illness Consult date: 05/12/18 Consult reason: GI bleed Heme positive stool Chief complaint: acute kidney injury History of Present Illness: This patient is an 87-year-old male with a medical history significant for chronic kidney disease, iron deficiency anemia, diabetes, GERD, hypertension and aortic valve repair. Patient was sent to [facility] emergency room for evaluation of lab work that was abnormal. Patient had lab work done as an outpatient 3-4 days ago and was notified today that his hemoglobin was low and he was sent to [place] for blood transfusion by his rustic fence builder. Patient endorses that he has had fatigue for the last 2 weeks. He states that he was taken off of Eliquis for his atrial fib 2 weeks ago by his rustic fence builder due to generalized weakness and cough. Patient states symptoms have somewhat resolved since being taken off Eliquis. Patient has a pacemaker and is sr with a rate in the 70s. Patient underwent aortic valve repair in 2017. Patient states he has history of carcinoid tumor with removal done in 2014 along with small bowel resection. Patient states he normally moves his bowels once or twice daily soft and brown or dark green due to iron supplements. Last BM this afternoon per patient. Patient denies constipation or diarrhea. Denies abdominal pain nausea or vomiting. Patient denies any difficulty swallowing or heartburn. States he does not smoke or drink alcohol. Family history of carcinoid tumor-patient's son. Patient denies any use of NSAIDs however he does state that he was taking 81 mg of aspirin p.o. daily. Per patient last EGD with colonoscopy was done 3-4 years ago with the above findings. Patient denies any obvious bleeding in stool, but does endorse that stool was tested positive for blood in the emergency room today. Our service has been consulted to evaluate patient's heme positive stool/GI bleed <Lina Hassan - Last Filed: 05/12/18 17:20> Review of Systems All other systems reviewed negative except as stated in HPI <Lina Hassan - Last Filed: 05/12/18 17:20> PMFSH - History History Provided By: Patient - Medical History Medical History: Medical History (Last Updated 05/12/18 @ 16:55 by Oneil Carmona DO) BPH (benign prostatic hyperplasia) Pacemaker Afib COPD (chronic obstructive pulmonary disease) Diabetes GERD (gastroesophageal reflux disease) Hx of Moh's micrographic surgery for skin cancer Hx of malignant neuroendocrine tumor Hypertension Stroke - Surgical History Surgical History: Surgical History (Last Reviewed 05/12/18 @ 16:56 by Oneil Carmona DO) H/O cataract removal with insertion of prosthetic lens H/O resection of small bowel History of cholecystectomy History of cholecystectomy History of loop recorder History of tonsillectomy Hx of colonoscopy S/p TAVR (transcatheter aortic valve replacement), bioprosthetic - Family History Family History: Family History (Last Updated 05/12/18 @ 16:56 by Oneil Carmona DO) Other Family history of hypertension Kidney disease Patient's father is Patient's mother is Stroke - Tobacco History Second Hand Smoke Exposure: No Tobacco Use In Past 30 Days: No Smoking Status: Never smoker Tobacco Type: Cigarettes Years Smoked: 17 - Alcohol History How Often Do You Have a Drink Containing Alcohol: Never - Substance Use History Substance History: No History of Abuse - Travel History History of Recent Travel: No Recent Travel in the [place] Within the Last 8 Weeks: No Recent Travel Out of the Country Within the Last 8 Weeks: No - Immunization History Tetanus Immunization: Unsure <Lina Hassan - Last Filed: 05/12/18 17:20> - Medical History Medical History: Medical History (Last Updated 05/12/18 @ 16:55 by Oneil Carmona DO) BPH (benign prostatic hyperplasia) Pacemaker Afib COPD (chronic obstructive pulmonary disease) Diabetes GERD (gastroesophageal reflux disease) Hx of Moh's micrographic surgery for skin cancer Hx of malignant neuroendocrine tumor Hypertension Stroke - Surgical History Surgical History: Surgical History (Last Reviewed 05/12/18 @ 16:56 by Oneil Carmona DO) H/O cataract removal with insertion of prosthetic lens H/O resection of small bowel History of cholecystectomy History of cholecystectomy History of loop recorder History of tonsillectomy Hx of colonoscopy S/p TAVR (transcatheter aortic valve replacement), bioprosthetic - Family History Family History: Family History (Last Updated 05/12/18 @ 16:56 by Oneil Carmona DO) Other Family history of hypertension Kidney disease Patient's father is Patient's mother is Stroke <Umair Colbert - Last Filed: 05/12/18 20:10> Medications and Allergies Active Medications: Active Medications Acetaminophen (Tylenol) 650 mg PO Q4H PRN PRN Reason: Temp > 100.4 Hydrocodone Bitart/Acetaminophen (Vendor 5/325) 1 tab PO Q4H PRN PRN Reason: PAIN SCALE 3 TO 5 Hydrocodone Bitart/Acetaminophen (Vendor 10/325) 1 tab PO Q4H PRN PRN Reason: PAIN SCALE 6 TO 10 Al Hydroxide/Mg Hydroxide (Milk Of Magnesia Liq) 30 ml PO Q12H PRN PRN Reason: Mild Constipation Amlodipine Besylate (Norvasc) 5 mg PO DAILY [facility] Atorvastatin Calcium (Lipitor) 40 mg PO DAILY [facility] Bisacodyl (Dulcolax Supp) 10 mg RECTAL DAILY PRN PRN Reason: SEVERE CONSITIPATION Dextrose (D50w Vial) 50 ml IV.PUSH UNSCH PRN PRN Reason: PER HYPOGLYCEMIA PROTOCOL Finasteride (Proscar) 5 mg PO DAILY [facility] Folic Acid (Folic Acid) 1 mg PO DAILY [facility] Glucagon (Glucagon Inj) 1 mg OTHER PRN PRN PRN Reason: for Hypoglycemia Protocol Sodium Chloride (Ns Inj) 1,000 mls @ 75 mls/hr IV.CONT .[id number] [facility] Last Admin: 05/12/18 15:15 Dose: 75 mls/hr Insulin Aspart (Novolog Insulin Correctional Sugar Inj) 0 unit SQ ACHS AND 3AM [facility]; Protocol Insulin Detemir (Levemir Inj) 18 unit SQ QPM [facility] Lactulose (Lactulose Liq) 30 ml PO DAILY PRN PRN Reason: SEVERE CONSITIPATION Loratadine (Claritin) 10 mg PO DAILY [facility] Metoprolol Succinate (Toprol Xl) 12.5 mg PO BID [facility] Miscellaneous (Pill Splitter) 1 each OTHER UNSCH [facility] Morphine Sulfate (Morphine Inj) 2 mg IV.PUSH Q3H PRN PRN Reason: PAIN 3-5; IF UABLE TO TAKE PO Morphine Sulfate (Morphine Inj) 4 mg IV.PUSH Q3H PRN PRN Reason: BREAKTHROUGH PAIN Morphine Sulfate (Morphine Inj) 4 mg IV.PUSH Q3H PRN PRN Reason: PAIN 6-10;IF UNABLE TO TAKE PO Morphine Sulfate (Morphine Inj) 4 mg IV.PUSH Q1H PRN PRN Reason: Pain Scale 7-10 (Intractable) Naloxone HCl (Narcan Inj) 0.4 mg IV.PUSH UNSCH PRN PRN Reason: SEE LABEL COMMENTS Ondansetron HCl (Zofran Inj) 4 mg IV.PUSH Q6H PRN PRN Reason: NAUSEA OR VOMITING Pantoprazole Sodium (Protonix Inj) 40 mg IV.PUSH BID [facility] Last Admin: 05/12/18 15:02 Dose: Not Given Polyethylene Glycol (Miralax) 17 gm PO DAILY PRN PRN Reason: Constipation Pyridoxine HCl (Vitamin B-6) 100 mg PO DAILY [facility] Senna/Docusate Sodium (Ora-Colace) 1 tab PO BID [facility] Sennosides (Senokot) 17.2 mg PO Q12H PRN PRN Reason: Moderate Constipation Sodium Chloride (Ns Flush) 2 ml IV.FLUSH BID [facility] Sodium Chloride (Ns Flush) 2 ml IV.FLUSH PRN PRN PRN Reason: FLUSH AFTER USING IV ACCESS Tamsulosin HCl (Flomax) 0.4 mg PO DAILY [facility] Vitamin D (Vitamin D3) 1,000 unit PO DAILY [facility] Zolpidem Tartrate (Ambien) 5 mg PO HS PRN PRN Reason: INSOMNIA <Hassan,Lina - Last Filed: 05/12/18 17:20> Active Medications: Active Medications Acetaminophen (Tylenol) 650 mg PO Q4H PRN PRN Reason: Temp > 100.4 Hydrocodone Bitart/Acetaminophen (Vendor 5/325) 1 tab PO Q4H PRN PRN Reason: PAIN SCALE 3 TO 5 Hydrocodone Bitart/Acetaminophen (Vendor 10/325) 1 tab PO Q4H PRN PRN Reason: PAIN SCALE 6 TO 10 Al Hydroxide/Mg Hydroxide (Milk Of Magnesia Liq) 30 ml PO Q12H PRN PRN Reason: Mild Constipation Amlodipine Besylate (Norvasc) 5 mg PO DAILY [facility] Atorvastatin Calcium (Lipitor) 40 mg PO DAILY [facility] Bisacodyl (Dulcolax Supp) 10 mg RECTAL DAILY PRN PRN Reason: SEVERE CONSITIPATION Dextrose (D50w Vial) 50 ml IV.PUSH UNSCH PRN PRN Reason: PER HYPOGLYCEMIA PROTOCOL Finasteride (Proscar) 5 mg PO DAILY [facility] Folic Acid (Folic Acid) 1 mg PO DAILY [facility] Glucagon (Glucagon Inj) 1 mg OTHER PRN PRN PRN Reason: for Hypoglycemia Protocol Sodium Chloride (Ns Inj) 1,000 mls @ 75 mls/hr IV.CONT .[id number] [facility] Last Admin: 05/12/18 15:15 Dose: 75 mls/hr Insulin Aspart (Novolog Insulin Correctional Sugar Inj) 0 unit SQ ACHS AND 3AM [facility]; Protocol Last Admin: 05/12/18 18:20 Dose: Not Given Insulin Detemir (Levemir Inj) 18 unit SQ QPM [facility] Last Admin: 05/12/18 19:04 Dose: Not Given Lactulose (Lactulose Liq) 30 ml PO DAILY PRN PRN Reason: SEVERE CONSITIPATION Loratadine (Claritin) 10 mg PO DAILY [facility] Metoprolol Succinate (Toprol Xl) 12.5 mg PO BID [facility] Miscellaneous (Pill Splitter) 1 each OTHER UNSCH [facility] Morphine Sulfate (Morphine Inj) 2 mg IV.PUSH Q3H PRN PRN Reason: PAIN 3-5; IF UABLE TO TAKE PO Morphine Sulfate (Morphine Inj) 4 mg IV.PUSH Q3H PRN PRN Reason: BREAKTHROUGH PAIN Morphine Sulfate (Morphine Inj) 4 mg IV.PUSH Q3H PRN PRN Reason: PAIN 6-10;IF UNABLE TO TAKE PO Morphine Sulfate (Morphine Inj) 4 mg IV.PUSH Q1H PRN PRN Reason: Pain Scale 7-10 (Intractable) Naloxone HCl (Narcan Inj) 0.4 mg IV.PUSH UNSCH PRN PRN Reason: SEE LABEL COMMENTS Ondansetron HCl (Zofran Inj) 4 mg IV.PUSH Q6H PRN PRN Reason: NAUSEA OR VOMITING Pantoprazole Sodium (Protonix Inj) 40 mg IV.PUSH BID [facility] Last Admin: 05/12/18 15:02 Dose: Not Given Polyethylene Glycol (Miralax) 17 gm PO DAILY PRN PRN Reason: Constipation Pyridoxine HCl (Vitamin B-6) 100 mg PO DAILY [facility] Senna/Docusate Sodium (Ora-Colace) 1 tab PO BID [facility] Sennosides (Senokot) 17.2 mg PO Q12H PRN PRN Reason: Moderate Constipation Sodium Chloride (Ns Flush) 2 ml IV.FLUSH BID [facility] Sodium Chloride (Ns Flush) 2 ml IV.FLUSH PRN PRN PRN Reason: FLUSH AFTER USING IV ACCESS Tamsulosin HCl (Flomax) 0.4 mg PO DAILY [facility] Vitamin D (Vitamin D3) 1,000 unit PO DAILY [facility] Zolpidem Tartrate (Ambien) 5 mg PO HS PRN PRN Reason: INSOMNIA <Umair Colbert E - Last Filed: 05/12/18 20:10> Allergies Allergy/AdvReac Type Severity Reaction Status Date / Time niacin Allergy Unknown Nausea/Vomi Verified 02/04/18 21:42 ting sitagliptin AdvReac Severe STOMACH Verified 02/04/18 21:42 PAIN Home Medications Medication Instructions Recorded Confirmed Type aspirin 81 mg PO DAILY 02/04/18 05/12/18 History atorvastatin 40 mg PO DAILY 02/04/18 05/12/18 History cholecalciferol (vitamin D3) 1,000 unit PO DAILY 02/04/18 05/12/18 History [Vitamin D3] coenzyme Q10 [Co Q-10] 100 mg PO DAILY 02/04/18 05/12/18 History ferrous gluconate 2 mg/kg PO TID 02/04/18 05/12/18 History finasteride 5 mg PO DAILY 02/04/18 05/12/18 History folic acid 1 mg PO DAILY 02/04/18 05/12/18 History furosemide 40 mg PO BID 02/04/18 05/12/18 History insulin detemir U-100 [Levemir 18 unit SUB-Q QPM 02/04/18 05/12/18 History U-100 Insulin] loratadine [Claritin] 10 mg PO DAILY 02/04/18 05/12/18 History magnesium 500 mg PO DAILY 02/04/18 05/12/18 History metolazone 2.5 mg PO Q OTHER DAY 02/04/18 05/12/18 History metoprolol succinate [Toprol XL] 12.5 mg PO BID 02/04/18 05/12/18 History polyethylene glycol 3350 [Miralax] 17 g PO DAILY PRN 02/04/18 05/12/18 History potassium chloride 20 meq PO BID 02/04/18 05/12/18 History pyridoxine (vitamin B6) [Vitamin 100 mg PO DAILY 02/04/18 05/12/18 History B-6] tamsulosin 0.4 mg PO DAILY 02/04/18 05/12/18 History Exam Vital signs: Vital Signs 05/12/18 10:53 05/12/18 12:38 05/12/18 15:13 Temperature 98.2 F Pulse Rate 71 71 65 Respiratory Rate 14 18 18 Blood Pressure 114/55 L 154/69 H 114/52 L Pulse Oximetry 100 100 100 05/12/18 16:00 Temperature 97.1 F L Pulse Rate 72 Respiratory Rate 17 Blood Pressure 119/67 Pulse Oximetry 100 Intake & Output 05/11/18 05/12/18 05/12/18 18:59 06:59 18:59 Weight 86.183 kg - Constitutional no acute distress - Routine HEENT Exam Head: Present: normocephalic - Routine Respiratory Exam Present: CTA bilaterally. Absent: accessory muscle use - Routine Cardiovascular Exam Present: RRR - Routine Abdominal Exam Present: soft, normoactive bowel sounds, distended. Absent: tenderness, guarding, firm - Routine Extremities Exam Present: full ROM, pulses intact. Absent: edema - Routine Neurological Exam Present: alert, oriented X3 <Hassan,Lina - Last Filed: 05/12/18 17:20> Vital signs: Vital Signs 05/12/18 10:53 05/12/18 12:38 05/12/18 15:13 Temperature 98.2 F Pulse Rate 71 71 65 Respiratory Rate 14 18 18 Blood Pressure 114/55 L 154/69 H 114/52 L Pulse Oximetry 100 100 100 05/12/18 16:00 Temperature 97.1 F L Pulse Rate 72 Respiratory Rate 17 Blood Pressure 119/67 Pulse Oximetry 100 Intake & Output 05/12/18 05/12/18 05/13/18 06:59 18:59 06:59 Weight 87.4 kg Other: Weight On Admission 87.4 kg <Umair Colbert - Last Filed: 05/12/18 20:10> Results - Labs CBC & Chem 7: 05/12/18 13:36 05/12/18 13:36 Labs: Laboratory Results - last 24 hr 05/12/18 05/12/18 05/12/18 13:36 13:36 13:36 WBC 3.1 L RBC 2.73 L Hgb 8.8 L Hct 26.6 L MCV 97.5 MCH 32.4 MCHC 33.2 RDW 16.6 Plt Count 68 L MPV 10.5 Prelim Diff (Auto) Slide review pending Neut % (Auto) 76.3 H Lymph % (Auto) 8.8 L [place] % (Auto) 10.4 H Eos % (Auto) 3.3 Baso % (Auto) 1.2 Neut # (Auto) 2.4 Lymph # (Auto) 0.3 L [place] # (Auto) 0.3 Eos # (Auto) 0.1 Baso # (Auto) 0.0 WBC Differential . Diff Scan Auto diff confirmed Differential Comment . Platelet Estimate Low L Platelet Morphology Normal PT 12.3 H INR 1.2 APTT 29.4 Sodium 136 Potassium 4.2 Chloride 99 Carbon Dioxide 30.4 Anion Gap 7 BUN 78 H Creatinine 3.52 H Estimated GFR 17 L Random Glucose 104 Calcium 8.5 Magnesium 2.6 H Total Bilirubin 0.8 AST 59 H ALT 45 Alkaline Phosphatase 278 H Total Protein 7.8 Albumin 3.3 L Blood Type Antibody Screen 05/12/18 13:36 WBC RBC Hgb Hct MCV MCH MCHC RDW Plt Count MPV Prelim Diff (Auto) Neut % (Auto) Lymph % (Auto) Verm[place] % (Auto) Eos % (Auto) Baso % (Auto) Neut # (Auto) Lymph # (Auto) [place] # (Auto) Eos # (Auto) Baso # (Auto) WBC Differential Diff Scan Differential Comment Platelet Estimate Platelet Morphology PT INR APTT Sodium Potassium Chloride Carbon Dioxide Anion Gap BUN Creatinine Estimated GFR Random Glucose Calcium Magnesium Total Bilirubin AST ALT Alkaline Phosphatase Total Protein Albumin Blood Type A Positive Antibody Screen Negative - Imaging Impressions Abdomen/Bladder Ultrasound 05/12/18 00:00 CONCLUSION: 1. Bilateral renal cysts with significant amount of ascites. <Lina Hassan - Last Filed: 05/12/18 17:20> - Labs CBC & Chem 7: 05/12/18 19:10 05/12/18 13:36 Labs: Laboratory Results - last 24 hr 05/12/18 05/12/18 05/12/18 13:36 13:36 13:36 WBC 3.1 L RBC 2.73 L Hgb 8.8 L Hct 26.6 L MCV 97.5 MCH 32.4 MCHC 33.2 RDW 16.6 Plt Count 68 L MPV 10.5 Prelim Diff (Auto) Slide review pending Neut % (Auto) 76.3 H Lymph % (Auto) 8.8 L [place] % (Auto) 10.4 H Eos % (Auto) 3.3 Baso % (Auto) 1.2 Neut # (Auto) 2.4 Lymph # (Auto) 0.3 L [place] # (Auto) 0.3 Eos # (Auto) 0.1 Baso # (Auto) 0.0 WBC Differential . Diff Scan Auto diff confirmed Differential Comment . Platelet Estimate Low L Platelet Morphology Normal ESR Retic Count Absolute Retic PT 12.3 H INR 1.2 APTT 29.4 Sodium 136 Potassium 4.2 Chloride 99 Carbon Dioxide 30.4 Anion Gap 7 BUN 78 H Creatinine 3.52 H Estimated GFR 17 L Random Glucose 104 Calcium 8.5 Magnesium 2.6 H Total Bilirubin 0.8 AST 59 H ALT 45 Alkaline Phosphatase 278 H Total Protein 7.8 Albumin 3.3 L Blood Type Antibody Screen 05/12/18 05/12/18 05/12/18 13:36 19:10 19:10 WBC RBC Hgb 7.8 L Hct 23.2 L MCV MCH MCHC RDW Plt Count MPV Prelim Diff (Auto) Neut % (Auto) Lymph % (Auto) Vermilion % (Auto) Eos % (Auto) Baso % (Auto) Neut # (Auto) Lymph # (Auto) Vermilion # (Auto) Eos # (Auto) Baso # (Auto) WBC Differential Diff Scan Differential Comment Platelet Estimate Platelet Morphology ESR 77 H Retic Count 0.9 Absolute Retic 20.5 PT INR APTT Sodium Potassium Chloride Carbon Dioxide Anion Gap BUN Creatinine Estimated GFR Random Glucose Calcium Magnesium Total Bilirubin AST ALT Alkaline Phosphatase Total Protein Albumin Blood Type A Positive Antibody Screen Negative - Imaging Impressions Abdomen/Bladder Ultrasound 05/12/18 00:00 CONCLUSION: 1. Bilateral renal cysts with significant amount of ascites. <Umair Colbert - Last Filed: 05/12/18 20:10> Assessment and Plan (1) GI bleed Status: Acute Code(s): K92.2 - Gastrointestinal hemorrhage, unspecified - Plan This patient is an 87-year-old male with a medical history significant for chronic kidney disease, iron deficiency anemia, diabetes, GERD, hypertension and aortic valve repair. Patient was sent to [facility] emergency room for evaluation of lab work that was abnormal. Patient had lab work done as an outpatient 3-4 days ago and was notified today that his hemoglobin was low and he was sent to [place] for blood transfusion by his rustic fence builder. Upon arrival hemoglobin 8.8 hematocrit 26.6. Platelet count 68. Patient endorses that he has had fatigue for the last 2 weeks. He states that he was taken off of Eliquis for his atrial fib 2 weeks ago by his rustic fence builder due to generalized weakness and cough. Patient states symptoms have somewhat resolved since being taken off Eliquis. Patient has a pacemaker and is sr with a rate in the 70s. Patient underwent aortic valve repair in 2017. Patient states he has history of carcinoid tumor with removal done in 2014 along with small bowel resection. Patient states he normally moves his bowels once or twice daily soft and brown or dark green due to iron supplements. Last BM this afternoon per patient. Patient denies constipation or diarrhea. Denies abdominal pain nausea or vomiting. Patient denies any difficulty swallowing or heartburn. States he does not smoke or drink alcohol. Family history of carcinoid tumor-patient's son. Patient denies any use of NSAIDs however he does state that he was taking 81 mg of aspirin p.o. daily. Per patient last EGD with colonoscopy was done 3-4 years ago with the above findings. Patient denies any obvious bleeding in stool, but does endorse that stool was tested positive for blood in the emergency room today. Our service has been consulted to evaluate patient's heme positive stool/GI bleed GI bleed 05/12/2018 hemoglobin 8.8 hematocrit 26.6. Patient states he was sent to [facility] for evaluation of low hemoglobin noted on outpatient labs done 3-4 days ago. Patient was on Eliquis for atrial fibrillation but was taken off same 2 weeks ago by rustic fence builder due to patient's report of cough and generalized weakness. Patient denies any obvious bleeding stool was heme positive in ER. Patient is awake and alert, hemodynamically stable saturation 100% on room air with a blood pressure of 119/67 and heart rate of 72. Plan for EGD colonoscopy tomorrow. Plan -Clear liquid diet for dinner -N.p.o. after midnight -Obtain consent for EGD colonoscopy -Donovan prep -Monitor for bleeding -Transfuse if required -Continue PPI -Supportive care -Further recommendations to follow based on patient status and findings This patient has been seen by myself and Dr. Colbert and this note is written on his behalf - Attending Attestation Dr. Smith <Lina Hassan - Last Filed: 05/12/18 17:20> (1) GI bleed Status: Acute Code(s): K92.2 - Gastrointestinal hemorrhage, unspecified - Plan Patient seen and examined Agree with above history and physical Continue with current supportive care Monitor labs Plan on an EGD with a colonoscopy tomorrow <Umair Colbert - Last Filed: 05/12/18 20:10>
[2018-05-12] MEDS: Insulin NovoLOG Aspart Correctional Sugar Inj SQ SCH ×2 (18:20→20:42)
[2018-05-12] MEDS ORDERED: PEG 3350/E-Lyte Soln 4000 ML Bottle PO ONE (18:30)
[2018-05-12] MEDS: Insulin Detemir Inj 1,000 UNIT/10 ML Vial SQ SCH ×2 (18:59→19:04)
--- NOTE | 2018-05-12 19:32 | ECG ---
Date Performed: 05/12/2018 Time Performed: 14:43:43 PTAGE: 87 years EKG: ATRIAL FIBRILLATION LOW QRS VOLTAGE IN EXTREMITY LEADS POSSIBLE ANTERIOR MYOCARDIAL INFARCT ION ABNORMAL ECG No significant change from prior electrocardiogram. PREVIOUS TRACING : 02/12/2018 04.12 DOCTOR: Michele Hoffman Interpretating Date/Time 05/12/2018 19:31:07
[2018-05-12 19:40] LABS: Reticulocyte Percent 0.9 % (0.4-3.0)
[2018-05-12 19:41] LABS: Hematocrit 23.2 % (39.0-51.0); Hemoglobin 7.8 gm/dL (13.0-17.0)
[2018-05-12 20:03] LABS: Erythrocyte Sedimentation Rate 77 mm/hr (0-20)
[2018-05-12 20:14] LABS: % Iron Saturation 18.5 % (20-50); Ferritin 205 ng/mL (26-388); Iron 52 mcg/dL (65-175); Lactate Dehydrogenase 181 U/L (87-241); Total Iron Binding Capacity 281 mcg/dL (250-450)
[2018-05-12 20:29] LABS: Creatine Kinase 78 U/L (39-308)
[2018-05-12] MEDS: Senna/Docusate Sodium 8.6/50 MG Tablet PO SCH (20:40)
[2018-05-13 01:46] LABS: Hematocrit 22.7 % (39.0-51.0); Hemoglobin 7.8 gm/dL (13.0-17.0)
[2018-05-13 02:03] LABS: Magnesium 2.4 mg/dL (1.5-2.5); Phosphorus 4.4 mg/dL (2.5-4.9)
[2018-05-13 02:06] LABS: Creatine Kinase 102 U/L (39-308)
[2018-05-13] MEDS: Sod Chloride 0.9% Inj 1,000 ML IV.CONT SCH ×4 (02:52→21:53)
[2018-05-13] MEDS: Insulin NovoLOG Aspart Correctional Sugar Inj SQ SCH ×4 (03:41→21:52)
[2018-05-13] MEDS ORDERED: Non-Formulary Drug (Coenzyme Q10 [Co Q-10] 100 MG) PO SCH (09:00)
[2018-05-13 09:37] LABS: Baso % (Auto) 1.2 % (0.0-2.0); Eos # (Auto) 0.1 th/mm3 (0.0-0.4); Hematocrit 23.8 % (39.0-51.0); Lymph # (Auto) 0.2 th/mm3 (1.0-4.8); Lymph % (Auto) 8.9 % (9.0-44.0); Mean Corpuscular HGB Conc 33.5 % (32.0-36.0); Mean Corpuscular Hemoglobin 32.3 pg (27.0-34.0); Mean Corpuscular Volume 96.6 fL (80.0-100.0); Mean Platelet Volume 10.5 fL (7.0-11.0); Mono # (Auto) 0.3 th/mm3 (0.0-0.9); Mono % (Auto) 11.8 % (0.0-8.0); Neut # (Auto) 1.8 th/mm3 (1.8-7.7); Neut % (Auto) 74.1 % (16.0-70.0); Platelet Count 68 th/mm3 (150-450); Red Blood Count 2.46 mil/mm3 (4.50-5.90); Red Cell Distribution Width 16.7 % (11.6-17.2); White Blood Count 2.4 th/mm3 (4.0-11.0)
[2018-05-13 09:45] LABS: INR 1.3 Ratio; Prothrombin Time 12.8 sec (9.8-11.6)
[2018-05-13] MEDS: Loratadine 10 MG Tablet PO SCH (09:45)
[2018-05-13] MEDS: Finasteride 5 MG Tablet PO SCH (09:46)
[2018-05-13] MEDS: Folic Acid 1 MG Tablet PO SCH (09:46)
[2018-05-13] MEDS: amLODIPine 5 MG Tablet PO SCH (09:46)
[2018-05-13] MEDS: Pantoprazole Inj 40 MG Vial IV.PUSH SCH ×2 (09:46→21:52)
[2018-05-13] MEDS: Senna/Docusate Sodium 8.6/50 MG Tablet PO SCH ×2 (09:46→21:53)
[2018-05-13 10:01] LABS: Anion Gap 10 meq/L (5-15); Aspartate Aminotransferase 48 U/L (15-37); Blood Urea Nitrogen 70 mg/dL (7-18); Calcium 8.7 mg/dL (8.5-10.1); Carbon Dioxide 27.9 meq/L (21.0-32.0); Chloride 101 meq/L (98-107); Glomerular Filtration Rate 17 mL/min (>89); Glucose,Random 103 mg/dL (74-106); Potassium 4.1 meq/L (3.5-5.1); Sodium 139 meq/L (136-145)
[2018-05-13 10:15] LABS: Alanine Aminotransferase 37 U/L (12-78); Alkaline Phosphatase 232 U/L (45-117); Free T4 (Free Thyroxine) 1.05 ng/dL (0.76-1.46); Total Protein 7.1 g/dL (6.4-8.2)
--- NOTE | 2018-05-13 10:34 | P.PNNP ---
Subjective Interval history: He is alert, comfortable. Non oliguric. To have colonoscopy today. Physical Exam Vital signs: Vital Signs 05/12/18 10:53 05/12/18 12:38 05/12/18 15:13 Temperature 98.2 F Pulse Rate 71 71 65 Respiratory Rate 14 18 18 Blood Pressure 114/55 L 154/69 H 114/52 L Pulse Oximetry 100 100 100 05/12/18 16:00 05/12/18 20:00 05/13/18 00:00 Temperature 97.1 F L 97.8 F 98.1 F Pulse Rate 72 73 74 Respiratory Rate 17 18 18 Blood Pressure 119/67 123/87 95/63 L Pulse Oximetry 100 99 100 05/13/18 04:00 05/13/18 08:00 Temperature 99.0 F 98.1 F Pulse Rate 77 72 Respiratory Rate 18 20 Blood Pressure 86/58 L 130/60 Pulse Oximetry 98 97 Intake & Output 05/12/18 05/13/18 05/13/18 18:59 06:59 18:59 Intake Total 1000 / 1000 Output Total 1800 / 1800 Balance -800 / -800 Weight 87.4 kg 90.7 kg Intake: IV 1000 / 1000 NS Inj 1,000 ML @ 75 mls/hr IV. 1000 / 1000 CONT .[id number] [facility] Rx#:[id number] Output: Urine/Stool Mix 1800 / 1800 Other: Weight On Admission 87.4 kg Narrative: GENERAL: Awake alert and oriented x3 talkative and cooperative SKIN: Warm and dry. HEAD: Atraumatic. Normocephalic. EYES: Pupils equal and round. No scleral icterus. No injection or drainage. ENT: No nasal bleeding or discharge. Mucous membranes pink and moist. NECK: Trachea midline. No JVD. Supple CARDIOVASCULAR: Regular rate and rhythm. S1-S2 no S3 or S4 permanent pacemaker RESPIRATORY: No accessory muscle use. Clear to auscultation. Breath sounds equal bilaterally. GASTROINTESTINAL: Abdomen soft, non-tender, nondistended. Hepatic and splenic margins not palpable. MUSCULOSKELETAL: Extremities without clubbing, cyanosis, or edema. No obvious deformities. NEUROLOGICAL: Awake and alert. No obvious cranial nerve deficits. Motor grossly within normal limits. Five out of 5 muscle strength in the arms and legs. Normal speech. PSYCHIATRIC: Appropriate mood and affect; insight and judgment normal. - Constitutional no acute distress - Routine HEENT Exam Head: Present: normocephalic, atraumatic Eye: Present: EOMI, PERRL ENT: Present: mucous membranes moist - Routine Neck Exam Present: supple. Absent: JVD, lymphadenopathy, thyromegaly - Routine Respiratory Exam Present: CTA bilaterally - Routine Cardiovascular Exam Present: S1, S2, irregularly irregular - Routine Abdominal Exam Present: soft Comments: distended, ascites. - Routine Neurological Exam Present: alert, oriented X3, CN II-XII intact, normal speech. Absent: facial asymmetry Assessment and Plan - Assessment (1) [id number] kidney injury Code(s): N17.9 - Acute kidney failure, unspecified; N18.9 - Chronic kidney disease, unspecified Status: Acute Plan: could be due to renal hypoperfusion, but he also has ascites. MILLI could be due to increased renal vein pressure, he may need therapeutic and diagnostic paracentesis. Etiology of ascites is unclear, could be due to transudative, but rule out malignancy. 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 If therapeutic paracentesis is considered, recommend Albumin infusion. Agree with cautious hydration at this time. Avoid nephrotoxic agents. Monitor. Renal function is slightly better today, he is insisting on going home. (2) Anemia Code(s): D64.9 - Anemia, unspecified Status: Acute Plan: Also has thrombocytopenia and leukopenia. Possible GI bleed as well. GI on the case, colonoscopy planned for today. Consider Hem/Onc evaluation. (3) Ascites Code(s): R18.8 - Other ascites Status: Acute Plan: See above. Etiology needs to be determined. (4) Atrial fibrillation Code(s): I48.91 - Unspecified atrial fibrillation Status: Acute Plan: Anticoagulation held due to anemia and GI bleeding.
[2018-05-13 13:05] LABS: Hemoglobin 7.8 gm/dL (13.0-17.0)
[2018-05-13 13:27] LABS: Alanine Aminotransferase 34 U/L (12-78); Albumin 2.9 g/dL (3.4-5.0); Anion Gap 10 meq/L (5-15); Aspartate Aminotransferase 46 U/L (15-37); Blood Urea Nitrogen 68 mg/dL (7-18); Calcium 8.3 mg/dL (8.5-10.1); Carbon Dioxide 28.5 meq/L (21.0-32.0); Chloride 100 meq/L (98-107); Glomerular Filtration Rate 19 mL/min (>89); Glucose,Random 100 mg/dL (74-106); Sodium 138 meq/L (136-145)
[2018-05-13 13:30] LABS: Alkaline Phosphatase 214 U/L (45-117); Total Protein 6.7 g/dL (6.4-8.2)
--- NOTE | 2018-05-13 14:59 | P.DS ---
Date of admission: 05/12/18 15:01 Primary care physician: Praveen Tejeda Brief History from admission: This is an 87 year old male with stage III CKD, chronic thrombocytopenia, s/p TAVR, s/p permanent pacemaker, history of SAH, admitted to the hospital because of anemia. He was advised to come to the ER by his outside sales account manager. Patient had been restarted on Apixaban about 2 weeks ago. In ER, apparently he had a Heme positive stool/rectal exam. His renal function has declined, baseline creatinine is around 1.6-1.7. When I noted that his renal function had declined significantly, we called him to get to the ER, only to find out that he is already in the hospital. DS: Summary Hospital Course: Mr. Miller is an 87-year-old male. At baseline he has chronic kidney disease stage III (creatinine 1.6-1.7). He came into the ER as advised by his outside sales account manager due to anemia. He had been on Eliquis resumed 2 weeks ago. Anemia is present with a hemoglobin of 7.9. Stools are positive. Eliquis has been discontinued. Since time of admit his anemia has stayed stable. EGD and colonoscopy performed today. Acute kidney injury was present on top of his underlying chronic kidney disease. Creatinine levels have been trending downward through time. Additional findings had been ascites. Patient was offered further workup for his ascites including a diagnostic paracentesis. He wished to discharge home to be with his (she is recently diagnosed with cancer) so he has declined further workup for his ascites and has declined further monitoring of his renal function. I did provide an outpatient reevaluation of his creatinine in 3 days to be sent to him evaluated by his PCP. Patient's cleared for discharge home today. - Time Spent with Patient Total time spent providing and/or coordinating discharge services: Less than 30 minutes - Quality: VTE Deep Vein Thrombosis/Pulmonary Embolism Present on Admission: No Exam Vital signs: Vital Signs 05/12/18 15:13 05/12/18 16:00 05/12/18 20:00 Temperature 97.1 F L 97.8 F Pulse Rate 65 72 73 Respiratory Rate 18 17 18 Blood Pressure 114/52 L 119/67 123/87 Pulse Oximetry 100 100 99 05/13/18 00:00 05/13/18 04:00 05/13/18 08:00 Temperature 98.1 F 99.0 F 98.1 F Pulse Rate 74 77 70 Respiratory Rate 18 18 20 Blood Pressure 95/63 L 86/58 L 130/60 Pulse Oximetry 100 98 97 05/13/18 12:00 Temperature 97.5 F L Pulse Rate 75 Respiratory Rate 20 Blood Pressure 116/59 L Pulse Oximetry 100 Intake & Output 05/12/18 05/13/18 05/13/18 18:59 06:59 18:59 Intake Total 1000 / 1000 Output Total 1800 / 1800 Balance -800 / -800 Weight 87.4 kg 90.7 kg Intake: IV 1000 / 1000 NS Inj 1,000 ML @ 75 mls/hr IV. 1000 / 1000 CONT .[id number] [facility] Rx#:[id number] Output: Urine/Stool Mix 1800 / 1800 Other: Weight On Admission 87.4 kg Results Procedures completed during hospitalization: None Labs on day of discharge: Labs from last 24 hours 05/13/18 05/13/18 05/13/18 12:41 12:41 12:12 WBC RBC Hgb 7.8 L Hct 23.0 L MCV MCH MCHC RDW Plt Count MPV Prelim Diff (Auto) Neut % (Auto) Lymph % (Auto) Iron % (Auto) Eos % (Auto) Baso % (Auto) Neut # (Auto) Lymph # (Auto) Iron # (Auto) Eos # (Auto) Baso # (Auto) WBC Differential Diff Scan Differential Comment Platelet Estimate Platelet Morphology ESR Retic Count Absolute Retic Haptoglobin PT INR Sodium 138 Potassium 4.0 Chloride 100 Carbon Dioxide 28.5 Anion Gap 10 BUN 68 H Creatinine 3.19 H Estimated GFR 19 L POC Glucose 101 Random Glucose 100 Hemoglobin A1c Calcium 8.3 L Phosphorus Magnesium Iron TIBC % Saturation Erythropoietin Ferritin Total Bilirubin 1.0 AST 46 H ALT 34 Alkaline Phosphatase 214 H Lactate Dehydrogenase Total Creatine Kinase Troponin I Total Protein 6.7 Albumin 2.9 L Vitamin B12 Folate RBC Folate TSH Free T4 05/13/18 05/13/18 05/13/18 08:13 08:13 08:13 WBC 2.4 L RBC 2.46 L Hgb 8.0 L Hct 23.8 L MCV 96.6 MCH 32.3 MCHC 33.5 RDW 16.7 Plt Count 68 L MPV 10.5 Prelim Diff (Auto) Slide review pending Neut % (Auto) 74.1 H Lymph % (Auto) 8.9 L Iron % (Auto) 11.8 H Eos % (Auto) 4.0 Baso % (Auto) 1.2 Neut # (Auto) 1.8 Lymph # (Auto) 0.2 L Iron # (Auto) 0.3 Eos # (Auto) 0.1 Baso # (Auto) 0.0 WBC Differential . Diff Scan Auto diff confirmed Differential Comment . Platelet Estimate Platelet Morphology ESR Retic Count Absolute Retic Haptoglobin PT 12.8 H INR 1.3 Sodium 139 Potassium 4.1 Chloride 101 Carbon Dioxide 27.9 Anion Gap 10 BUN 70 H Creatinine 3.36 H Estimated GFR 17 L POC Glucose Random Glucose 103 Hemoglobin A1c Calcium 8.7 Phosphorus Magnesium Iron TIBC % Saturation Erythropoietin Ferritin Total Bilirubin 0.9 AST 48 H ALT 37 Alkaline Phosphatase 232 H Lactate Dehydrogenase Total Creatine Kinase Troponin I Total Protein 7.1 D Albumin 3.0 L Vitamin B12 Folate RBC Folate TSH 1.880 Free T4 1.05 05/13/18 05/13/18 05/13/18 08:13 08:05 03:40 WBC RBC Hgb Hct MCV MCH MCHC RDW Plt Count MPV Prelim Diff (Auto) Neut % (Auto) Lymph % (Auto) Iron % (Auto) Eos % (Auto) Baso % (Auto) Neut # (Auto) Lymph # (Auto) Iron # (Auto) Eos # (Auto) Baso # (Auto) WBC Differential Diff Scan Differential Comment Platelet Estimate Platelet Morphology ESR Retic Count Absolute Retic Haptoglobin PT INR Sodium Potassium Chloride Carbon Dioxide Anion Gap BUN Creatinine Estimated GFR POC Glucose 107 135 H Random Glucose Hemoglobin A1c Pending Calcium Phosphorus Magnesium Iron TIBC % Saturation Erythropoietin Ferritin Total Bilirubin AST ALT Alkaline Phosphatase Lactate Dehydrogenase Total Creatine Kinase Troponin I Total Protein Albumin Vitamin B12 Folate RBC Folate TSH Free T4 05/13/18 05/13/18 05/12/18 01:12 01:12 19:10 WBC RBC Hgb 7.8 L Hct 22.7 L MCV MCH MCHC RDW Plt Count MPV Prelim Diff (Auto) Neut % (Auto) Lymph % (Auto) Iron % (Auto) Eos % (Auto) Baso % (Auto) Neut # (Auto) Lymph # (Auto) Iron # (Auto) Eos # (Auto) Baso # (Auto) WBC Differential Diff Scan Differential Comment Platelet Estimate Platelet Morphology ESR Retic Count Absolute Retic Haptoglobin PT INR Sodium Potassium Chloride Carbon Dioxide Anion Gap BUN Creatinine Estimated GFR POC Glucose Random Glucose Hemoglobin A1c Calcium Phosphorus 4.4 Magnesium 2.4 Iron TIBC % Saturation Erythropoietin Pending Ferritin Total Bilirubin AST ALT Alkaline Phosphatase Lactate Dehydrogenase Total Creatine Kinase 102 Troponin I Less than 0.02 L Total Protein Albumin Vitamin B12 Folate RBC Folate Pending TSH Free T4 05/12/18 05/12/18 05/12/18 19:10 19:10 19:10 WBC RBC Hgb 7.8 L Hct 23.2 L MCV MCH MCHC RDW Plt Count MPV Prelim Diff (Auto) Neut % (Auto) Lymph % (Auto) Iron % (Auto) Eos % (Auto) Baso % (Auto) Neut # (Auto) Lymph # (Auto) Iron # (Auto) Eos # (Auto) Baso # (Auto) WBC Differential Diff Scan Differential Comment Platelet Estimate Platelet Morphology ESR 77 H Retic Count 0.9 Absolute Retic 20.5 Haptoglobin 111 PT INR Sodium Potassium Chloride Carbon Dioxide Anion Gap BUN Creatinine Estimated GFR POC Glucose Random Glucose Hemoglobin A1c Calcium Phosphorus Magnesium Iron 52 L TIBC 281 % Saturation 18.5 L Erythropoietin Ferritin 205 Total Bilirubin AST ALT Alkaline Phosphatase Lactate Dehydrogenase 181 Total Creatine Kinase Troponin I Total Protein Albumin Vitamin B12 Greater than 2000 H Folate Greater than 20.0 H RBC Folate TSH Free T4 05/12/18 05/12/18 19:10 13:36 WBC RBC Hgb Hct MCV MCH MCHC RDW Plt Count MPV Prelim Diff (Auto) Neut % (Auto) Lymph % (Auto) Iron % (Auto) Eos % (Auto) Baso % (Auto) Neut # (Auto) Lymph # (Auto) Iron # (Auto) Eos # (Auto) Baso # (Auto) WBC Differential . Diff Scan Auto diff confirmed Differential Comment Platelet Estimate Low L Platelet Morphology Normal ESR Retic Count Absolute Retic Haptoglobin PT INR Sodium Potassium Chloride Carbon Dioxide Anion Gap BUN Creatinine Estimated GFR POC Glucose Random Glucose Hemoglobin A1c Calcium Phosphorus Magnesium Iron TIBC % Saturation Erythropoietin Ferritin Total Bilirubin AST ALT Alkaline Phosphatase Lactate Dehydrogenase Total Creatine Kinase 78 Troponin I Less than 0.02 L Total Protein Albumin Vitamin B12 Folate RBC Folate TSH Free T4 - Impressions ITS Impressions Abdomen/Bladder Ultrasound 05/12/18 00:00 CONCLUSION: 1. Bilateral renal cysts with significant amount of ascites. Discharge Plan - Discharge Condition Condition: Stable - Physicians Team Attending Provider: Mahamed Grajeda Other Providers: Umair Colbert MD ; Keith Parrish MD
[2018-05-13] MEDS ORDERED: Phenylephrine/NS 1000 MCG/10ML Syringe IV.PUSH ONE (15:15)
[2018-05-13] MEDS ORDERED: Lidocaine PF 1% Inj 5 ML Syringe OTHER ONE (15:15)
--- NOTE | 2018-05-13 15:58 | P.PCN ---
Date of procedure: 05/13/18 Pre-op diagnosis: GI bleed, anemia, Procedure: PROCEDURE PERFORMED EGD with colonoscopy and snare polypectomy PROCEDURE: The procedure, risks and benefits were discussed with Patient/POA and informed consent was obtained. Anesthesia sedated Patient with Diprivan. Patient was placed in the left lateral decubitus position. EGD: The Pentax videoscope was introduced through the oropharynx and advanced to the second portion of the duodenum under direct visualization. Retroflexion was performed in the stomach. FINDINGS: The esophagus this appeared to be unremarkable and within normal limits The stomach there was a mild to moderate hiatal hernia otherwise gastric mucosa was unremarkable and within normal limits The duodenum this appeared to be unremarkable with normal limits Colonoscopy: The Pentax videoscope was introduced through the rectum and advanced to cecum where the ileocecal valve and appendiceal orifice were identified. Retroflexion was performed in the rectum. Colonic prep was fair FINDINGS: Colonic withdrawal time greater than 6 minutes. As the scope was slowly withdrawn colonic mucosa was carefully inspected patient was noted to have 2 sessile polyps in the ascending colon one was small the other is medium in size both were excised using cold snare technique the patient was also noted to have diverticulosis throughout the colon this was mild although more like mild to moderate in the sigmoid region colonic mucosa otherwise unremarkable retroflexion did reveal grade 1 internal hemorrhoids and on rectal examination the patient was noted to have also grade 1 external hemorrhoids ESTIMATED BLOOD LOSS: Minimal SPECIMENS REMOVED: Colon biopsies COMPLICATIONS: None IMPRESSION: Hiatal hernia Colon polyps Diverticulosis Internal and external hemorrhoids PLAN: Await biopsies Continue with current supportive care Monitor labs and transfuse if needed Recommend high-fiber diet Colonoscopy in 5 years Anesthesia: MAC Surgeon: Umair Colbert Condition: stable Disposition: floor
--- NOTE | 2018-05-13 17:22 | P.PNIM ---
Subjective Interval history: No acute findings of concern on colonoscopy. Patient is agreeable to stay for diagnostic/therapeutic paracentesis. Further monitoring of renal function also recommended. Physical Exam Vital signs: Vital Signs 05/12/18 20:00 05/13/18 00:00 05/13/18 04:00 Temperature 97.8 F 98.1 F 99.0 F Pulse Rate 73 74 77 Respiratory Rate 18 18 18 Blood Pressure 123/87 95/63 L 86/58 L Pulse Oximetry 99 100 98 05/13/18 08:00 05/13/18 12:00 05/13/18 16:00 Temperature 98.1 F 97.5 F L Pulse Rate 70 75 72 Respiratory Rate 20 20 Blood Pressure 130/60 116/59 L Pulse Oximetry 97 100 05/13/18 16:04 Temperature 97.1 F L Pulse Rate 72 Respiratory Rate 18 Blood Pressure 111/56 L Pulse Oximetry 98 Intake & Output 05/12/18 05/13/18 05/13/18 18:59 06:59 18:59 Intake Total 1000 / 1000 Output Total 1800 / 1800 Balance -800 / -800 Weight 87.4 kg 90.7 kg Intake: IV 1000 / 1000 NS Inj 1,000 ML @ 75 mls/hr IV. 1000 / 1000 CONT .[id number] [facility] Rx#:[id number] Output: Urine/Stool Mix 1800 / 1800 Other: Weight On Admission 87.4 kg Narrative: GENERAL: NAD, A&Ox3 HEAD: Normocephalic. NECK: Supple, trachea midline. No lymphadenopathy. EYES: No scleral icterus. No injection or drainage. CARDIOVASCULAR: Regular rate and rhythm without murmurs, gallops, or rubs. RESPIRATORY: Breath sounds equal bilaterally. No accessory muscle use. GASTROINTESTINAL: Abdomen soft, non-tender, distended abdomen. MUSCULOSKELETAL: No cyanosis, or edema. SKIN: Warm and dry. NEURO: No focal neurological deficits. Results - Labs CBC & Chem 7: 05/13/18 12:41 05/13/18 12:41 Laboratory Results - last 24 hr 05/12/18 05/12/18 05/12/18 19:10 19:10 19:10 WBC RBC Hgb 7.8 L Hct 23.2 L MCV MCH MCHC RDW Plt Count MPV Prelim Diff (Auto) Neut % (Auto) Lymph % (Auto) Barren % (Auto) Eos % (Auto) Baso % (Auto) Neut # (Auto) Lymph # (Auto) Barren # (Auto) Eos # (Auto) Baso # (Auto) WBC Differential Diff Scan Differential Comment ESR 77 H Retic Count 0.9 Absolute Retic 20.5 Haptoglobin PT INR Sodium Potassium Chloride Carbon Dioxide Anion Gap BUN Creatinine Estimated GFR POC Glucose Random Glucose Calcium Phosphorus Magnesium Iron TIBC % Saturation Ferritin Total Bilirubin AST ALT Alkaline Phosphatase Lactate Dehydrogenase Total Creatine Kinase 78 Troponin I Less than 0.02 L Total Protein Albumin Vitamin B12 Folate TSH Free T4 05/12/18 05/13/18 05/13/18 19:10 01:12 01:12 WBC RBC Hgb 7.8 L Hct 22.7 L MCV MCH MCHC RDW Plt Count MPV Prelim Diff (Auto) Neut % (Auto) Lymph % (Auto) Barren % (Auto) Eos % (Auto) Baso % (Auto) Neut # (Auto) Lymph # (Auto) Barren # (Auto) Eos # (Auto) Baso # (Auto) WBC Differential Diff Scan Differential Comment ESR Retic Count Absolute Retic Haptoglobin 111 PT INR Sodium Potassium Chloride Carbon Dioxide Anion Gap BUN Creatinine Estimated GFR POC Glucose Random Glucose Calcium Phosphorus 4.4 Magnesium 2.4 Iron 52 L TIBC 281 % Saturation 18.5 L Ferritin 205 Total Bilirubin AST ALT Alkaline Phosphatase Lactate Dehydrogenase 181 Total Creatine Kinase 102 Troponin I Less than 0.02 L Total Protein Albumin Vitamin B12 Greater than 2000 H Folate Greater than 20.0 H TSH Free T4 05/13/18 05/13/18 05/13/18 03:40 08:05 08:13 WBC RBC Hgb Hct MCV MCH MCHC RDW Plt Count MPV Prelim Diff (Auto) Neut % (Auto) Lymph % (Auto) Barren % (Auto) Eos % (Auto) Baso % (Auto) Neut # (Auto) Lymph # (Auto) Barren # (Auto) Eos # (Auto) Baso # (Auto) WBC Differential Diff Scan Differential Comment ESR Retic Count Absolute Retic Haptoglobin PT INR Sodium 139 Potassium 4.1 Chloride 101 Carbon Dioxide 27.9 Anion Gap 10 BUN 70 H Creatinine 3.36 H Estimated GFR 17 L POC Glucose 135 H 107 Random Glucose 103 Calcium 8.7 Phosphorus Magnesium Iron TIBC % Saturation Ferritin Total Bilirubin 0.9 AST 48 H ALT 37 Alkaline Phosphatase 232 H Lactate Dehydrogenase Total Creatine Kinase Troponin I Total Protein 7.1 D Albumin 3.0 L Vitamin B12 Folate TSH 1.880 Free T4 1.05 05/13/18 05/13/18 05/13/18 08:13 08:13 12:12 WBC 2.4 L RBC 2.46 L Hgb 8.0 L Hct 23.8 L MCV 96.6 MCH 32.3 MCHC 33.5 RDW 16.7 Plt Count 68 L MPV 10.5 Prelim Diff (Auto) Slide review pending Neut % (Auto) 74.1 H Lymph % (Auto) 8.9 L Barren % (Auto) 11.8 H Eos % (Auto) 4.0 Baso % (Auto) 1.2 Neut # (Auto) 1.8 Lymph # (Auto) 0.2 L Barren # (Auto) 0.3 Eos # (Auto) 0.1 Baso # (Auto) 0.0 WBC Differential . Diff Scan Auto diff confirmed Differential Comment . ESR Retic Count Absolute Retic Haptoglobin PT 12.8 H INR 1.3 Sodium Potassium Chloride Carbon Dioxide Anion Gap BUN Creatinine Estimated GFR POC Glucose 101 Random Glucose Calcium Phosphorus Magnesium Iron TIBC % Saturation Ferritin Total Bilirubin AST ALT Alkaline Phosphatase Lactate Dehydrogenase Total Creatine Kinase Troponin I Total Protein Albumin Vitamin B12 Folate TSH Free T4 05/13/18 05/13/18 12:41 12:41 WBC RBC Hgb 7.8 L Hct 23.0 L MCV MCH MCHC RDW Plt Count MPV Prelim Diff (Auto) Neut % (Auto) Lymph % (Auto) Barren % (Auto) Eos % (Auto) Baso % (Auto) Neut # (Auto) Lymph # (Auto) Barren # (Auto) Eos # (Auto) Baso # (Auto) WBC Differential Diff Scan Differential Comment ESR Retic Count Absolute Retic Haptoglobin PT INR Sodium 138 Potassium 4.0 Chloride 100 Carbon Dioxide 28.5 Anion Gap 10 BUN 68 H Creatinine 3.19 H Estimated GFR 19 L POC Glucose Random Glucose 100 Calcium 8.3 L Phosphorus Magnesium Iron TIBC % Saturation Ferritin Total Bilirubin 1.0 AST 46 H ALT 34 Alkaline Phosphatase 214 H Lactate Dehydrogenase Total Creatine Kinase Troponin I Total Protein 6.7 Albumin 2.9 L Vitamin B12 Folate TSH Free T4 - Procedures None Assessment and Plan - Plan 87-year-old male admitted secondary to GI bleed and acute kidney injury. Patient agreeable to diagnostic/therapeutic paracentesis, ordered. Further monitoring renal function ordered. Further monitoring of hemoglobin. Acute kidney injury Continue to monitor renal function. Nephrology following. IV hydration Ascites Interventional radiology consulted Diagnostic/therapeutic paracentesis planned Anemia Acute blood loss anemia GI Bleed This is likely related to Eliquis No acute findings on colonoscopy Continue to monitor hemoglobin Atrial fibrillation Patient is a poor candidate for Eliquis Follow clinically DVT prophylaxis SCDs Not a candidate for anticoagulation right now
[2018-05-13] MEDS: Insulin Detemir Inj 1,000 UNIT/10 ML Vial SQ SCH (18:48)
[2018-05-13 20:46] LABS: Hemoglobin A1c 6.1 % (4.3-6.0)
[2018-05-14] MEDS: Insulin NovoLOG Aspart Correctional Sugar Inj SQ SCH ×5 (04:21→22:00)
[2018-05-14 08:25] LABS: Baso % (Auto) 1.3 % (0.0-2.0); Eos # (Auto) 0.1 th/mm3 (0.0-0.4); Eos % (Auto) 1.9 % (0.0-4.0); Hematocrit 22.8 % (39.0-51.0); Hemoglobin 7.9 gm/dL (13.0-17.0); Lymph # (Auto) 0.2 th/mm3 (1.0-4.8); Lymph % (Auto) 5.3 % (9.0-44.0); Mean Corpuscular HGB Conc 34.5 % (32.0-36.0); Mean Corpuscular Hemoglobin 32.7 pg (27.0-34.0); Mean Corpuscular Volume 94.9 fL (80.0-100.0); Mean Platelet Volume 10.5 fL (7.0-11.0); Mono # (Auto) 0.3 th/mm3 (0.0-0.9); Mono % (Auto) 8.4 % (0.0-8.0); Neut # (Auto) 2.7 th/mm3 (1.8-7.7); Neut % (Auto) 83.1 % (16.0-70.0); Platelet Count 56 th/mm3 (150-450); Red Cell Distribution Width 16.9 % (11.6-17.2); White Blood Count 3.2 th/mm3 (4.0-11.0)
[2018-05-14 08:38] LABS: Alanine Aminotransferase 33 U/L (12-78); Anion Gap 10 meq/L (5-15); Aspartate Aminotransferase 46 U/L (15-37); Blood Urea Nitrogen 66 mg/dL (7-18); Calcium 8.2 mg/dL (8.5-10.1); Carbon Dioxide 28.3 meq/L (21.0-32.0); Chloride 102 meq/L (98-107); Glomerular Filtration Rate 18 mL/min (>89); Glucose,Random 120 mg/dL (74-106); Phosphorus 4.3 mg/dL (2.5-4.9); Sodium 140 meq/L (136-145)
[2018-05-14 08:40] LABS: Alkaline Phosphatase 201 U/L (45-117); Total Protein 6.8 g/dL (6.4-8.2)
[2018-05-14] MEDS: Folic Acid 1 MG Tablet PO SCH (09:00)
[2018-05-14] MEDS: Finasteride 5 MG Tablet PO SCH (09:00)
[2018-05-14] MEDS: Loratadine 10 MG Tablet PO SCH (09:00)
[2018-05-14] MEDS: amLODIPine 5 MG Tablet PO SCH (09:00)
[2018-05-14] MEDS: Senna/Docusate Sodium 8.6/50 MG Tablet PO SCH ×2 (09:03→22:03)
[2018-05-14] MEDS: Pantoprazole Inj 40 MG Vial IV.PUSH SCH ×2 (09:03→22:00)
--- NOTE | 2018-05-14 09:59 | P.PNIM ---
Subjective Interval history: Plan for paracentesis at 1 PM today. Patient has no new complaints. Hemoglobin shows stability. Creatinine level shows stability (no significant improvement compared to yesterday). Physical Exam Vital signs: Vital Signs 05/13/18 12:00 05/13/18 16:00 05/13/18 16:04 Temperature 97.5 F L 97.1 F L Pulse Rate 75 72 72 Respiratory Rate 20 18 Blood Pressure 116/59 L 111/56 L Pulse Oximetry 100 98 05/13/18 20:00 05/14/18 00:00 05/14/18 04:00 Temperature 97.3 F L 98.1 F 97.8 F Pulse Rate 66 69 69 Respiratory Rate 18 18 18 Blood Pressure 110/54 L 110/54 L 90/53 L Pulse Oximetry 99 98 97 05/14/18 08:00 Temperature 98.1 F Pulse Rate 69 Respiratory Rate 17 Blood Pressure 138/108 H Pulse Oximetry 94 L Intake & Output 05/13/18 05/14/18 05/14/18 18:59 06:59 18:59 Intake Total 1400 / 1400 1000 / 1000 Output Total 500 / 500 Balance 1400 / 1400 500 / 500 Weight 90.3 kg Intake: IV 800 / 800 1000 / 1000 NS Inj 1,000 ML @ 75 mls/hr IV. 800 / 800 1000 / 1000 CONT .[id number] [facility] Rx#:[id number] Anesthesia Amount 600 / 600 Output: Urine 500 / 500 Other: Date of Last Bowel Movement 05/13/18 Narrative: GENERAL: NAD, A&Ox3 HEAD: Normocephalic. NECK: Supple, trachea midline. No lymphadenopathy. EYES: No scleral icterus. No injection or drainage. CARDIOVASCULAR: Regular rate and rhythm without murmurs, gallops, or rubs. RESPIRATORY: Breath sounds equal bilaterally. No accessory muscle use. GASTROINTESTINAL: Abdomen soft, non-tender, distended abdomen. MUSCULOSKELETAL: No cyanosis, or edema. SKIN: Warm and dry. NEURO: No focal neurological deficits. Results - Labs CBC & Chem 7: 05/14/18 04:47 05/14/18 04:47 Laboratory Results - last 24 hr 05/13/18 05/13/18 05/13/18 08:13 08:13 08:13 WBC RBC Hgb Hct MCV MCH MCHC RDW Plt Count MPV Prelim Diff (Auto) Neut % (Auto) Lymph % (Auto) [place] % (Auto) Eos % (Auto) Baso % (Auto) Neut # (Auto) Lymph # (Auto) [place] # (Auto) Eos # (Auto) Baso # (Auto) WBC Differential . Diff Scan Auto diff confirmed Differential Comment Sodium 139 Potassium 4.1 Chloride 101 Carbon Dioxide 27.9 Anion Gap 10 BUN 70 H Creatinine 3.36 H Estimated GFR 17 L POC Glucose Random Glucose 103 Hemoglobin A1c 6.1 H Calcium 8.7 Phosphorus Total Bilirubin 0.9 AST 48 H ALT 37 Alkaline Phosphatase 232 H Total Protein 7.1 D Albumin 3.0 L TSH 1.880 Free T4 1.05 05/13/18 05/13/18 05/13/18 12:12 12:41 12:41 WBC RBC Hgb 7.8 L Hct 23.0 L MCV MCH MCHC RDW Plt Count MPV Prelim Diff (Auto) Neut % (Auto) Lymph % (Auto) [place] % (Auto) Eos % (Auto) Baso % (Auto) Neut # (Auto) Lymph # (Auto) [place] # (Auto) Eos # (Auto) Baso # (Auto) WBC Differential Diff Scan Differential Comment Sodium 138 Potassium 4.0 Chloride 100 Carbon Dioxide 28.5 Anion Gap 10 BUN 68 H Creatinine 3.19 H Estimated GFR 19 L POC Glucose 101 Random Glucose 100 Hemoglobin A1c Calcium 8.3 L Phosphorus Total Bilirubin 1.0 AST 46 H ALT 34 Alkaline Phosphatase 214 H Total Protein 6.7 Albumin 2.9 L TSH Free T4 05/14/18 05/14/18 05/14/18 04:18 04:47 04:47 WBC 3.2 L RBC 2.40 L Hgb 7.9 L Hct 22.8 L MCV 94.9 MCH 32.7 MCHC 34.5 RDW 16.9 Plt Count 56 L MPV 10.5 Prelim Diff (Auto) Slide review pending Neut % (Auto) 83.1 H Lymph % (Auto) 5.3 L [place] % (Auto) 8.4 H Eos % (Auto) 1.9 Baso % (Auto) 1.3 Neut # (Auto) 2.7 Lymph # (Auto) 0.2 L [place] # (Auto) 0.3 Eos # (Auto) 0.1 Baso # (Auto) 0.0 WBC Differential Diff Scan Differential Comment . Sodium 140 Potassium 4.0 Chloride 102 Carbon Dioxide 28.3 Anion Gap 10 BUN 66 H Creatinine 3.22 H Estimated GFR 18 L POC Glucose 149 H Random Glucose 120 H Hemoglobin A1c Calcium 8.2 L Phosphorus 4.3 Total Bilirubin 0.8 AST 46 H ALT 33 Alkaline Phosphatase 201 H Total Protein 6.8 Albumin 3.0 L TSH Free T4 05/14/18 07:33 WBC RBC Hgb Hct MCV MCH MCHC RDW Plt Count MPV Prelim Diff (Auto) Neut % (Auto) Lymph % (Auto) [place] % (Auto) Eos % (Auto) Baso % (Auto) Neut # (Auto) Lymph # (Auto) [place] # (Auto) Eos # (Auto) Baso # (Auto) WBC Differential Diff Scan Differential Comment Sodium Potassium Chloride Carbon Dioxide Anion Gap BUN Creatinine Estimated GFR POC Glucose 127 H Random Glucose Hemoglobin A1c Calcium Phosphorus Total Bilirubin AST ALT Alkaline Phosphatase Total Protein Albumin TSH Free T4 Assessment and Plan - Plan 87-year-old male admitted secondary to GI bleed and acute kidney injury. Paracentesis planned for today. Continue to monitor renal function. Continue to monitor hemoglobin. Hopefully paracentesis will assist in patient's renal function improving and hemoglobin improving. Acute kidney injury Continue to monitor renal function. Nephrology following. IV hydration Ascites Interventional radiology consulted Diagnostic/therapeutic paracentesis planned Anemia Acute blood loss anemia GI Bleed This is likely related to Eliquis No acute findings on colonoscopy Continue to monitor hemoglobin Atrial fibrillation Patient is a poor candidate for Eliquis Follow clinically DVT prophylaxis SCDs Not a candidate for anticoagulation right now
[2018-05-14 10:25] LABS: Ovalocytes 1+
--- NOTE | 2018-05-14 13:50 | P.PNGI ---
Subjective Interval history: Patient awake and alert, denies abdominal pain. Paracentesis today Patient post EGD/colonoscopy <Lina Hassan - Last Filed: 05/14/18 13:38> Physical Exam Vital signs: Vital Signs 05/13/18 16:00 05/13/18 16:04 05/13/18 20:00 Temperature 97.1 F L 97.3 F L Pulse Rate 72 72 66 Respiratory Rate 18 18 Blood Pressure 111/56 L 110/54 L Pulse Oximetry 98 99 05/14/18 00:00 05/14/18 04:00 05/14/18 08:00 Temperature 98.1 F 97.8 F 98.1 F Pulse Rate 69 69 69 Respiratory Rate 18 18 17 Blood Pressure 110/54 L 90/53 L 138/108 H Pulse Oximetry 98 97 94 L 05/14/18 10:31 05/14/18 12:00 Temperature 97.5 F L Pulse Rate 70 Respiratory Rate 20 Blood Pressure 114/56 L Pulse Oximetry 99 99 Intake & Output 05/13/18 05/14/18 05/14/18 18:59 06:59 18:59 Intake Total 1400 / 1400 1000 / 1000 Output Total 500 / 500 Balance 1400 / 1400 500 / 500 Weight 90.3 kg Intake: IV 800 / 800 1000 / 1000 NS Inj 1,000 ML @ 75 mls/hr IV. 800 / 800 1000 / 1000 CONT .[id number] [facility] Rx#:[id number] Anesthesia Amount 600 / 600 Output: Urine 500 / 500 Other: Date of Last Bowel Movement 05/13/18 - Constitutional no acute distress - Routine HEENT Exam Head: Present: normocephalic - Routine Respiratory Exam Present: CTA bilaterally. Absent: accessory muscle use - Routine Abdominal Exam Present: normoactive bowel sounds, distended. Absent: tenderness, guarding, firm - Routine Extremities Exam Present: full ROM - Routine Skin Exam Present: dry, warm - Routine Neurological Exam Present: alert - Routine Psychiatric Exam Present: normal affect, cooperative <Lina Hassan - Last Filed: 05/14/18 13:38> Vital signs: Vital Signs 05/14/18 00:00 05/14/18 04:00 05/14/18 08:00 Temperature 98.1 F 97.8 F 98.1 F Pulse Rate 69 69 69 Respiratory Rate 18 18 17 Blood Pressure 110/54 L 90/53 L 138/108 H Pulse Oximetry 98 97 94 L 05/14/18 10:31 05/14/18 12:00 05/14/18 13:18 Temperature 97.5 F L 97.7 F Pulse Rate 69 112 H Respiratory Rate 20 20 Blood Pressure 114/56 L 111/62 Pulse Oximetry 99 99 98 05/14/18 14:45 05/14/18 15:02 05/14/18 16:00 Temperature 98.0 F 97.9 F Pulse Rate 65 66 64 Respiratory Rate 18 18 18 Blood Pressure 107/56 L 100/49 L 103/51 L Pulse Oximetry 100 100 99 Intake & Output 05/14/18 05/14/18 05/15/18 06:59 18:59 06:59 Intake Total 1000 / 1000 1050 / 1050 Output Total 500 / 500 200 / 200 Balance 500 / 500 850 / 850 Weight 90.3 kg Intake: IV 1000 / 1000 1050 / 1050 NS Inj 1,000 ML @ 75 mls/hr IV. 1000 / 1000 1000 / 1000 CONT .[id number] [facility] Rx#:[id number] Flexbumin 25% Inj 50 ML @ 60 50 / 50 mls/hr IV.SIG Q6H [facility] Rx#: [id number] Output: Urine 500 / 500 200 / 200 Other: # Voids 5 Date of Last Bowel Movement 05/13/18 05/14/18 # Bowel Movements 2 <Umair Colbert E - Last Filed: 05/14/18 21:16> Results - Labs CBC & Chem 7: 05/14/18 04:47 05/14/18 04:47 Laboratory Results - last 24 hr 05/13/18 05/14/18 05/14/18 08:13 04:18 04:47 WBC 3.2 L RBC 2.40 L Hgb 7.9 L Hct 22.8 L MCV 94.9 MCH 32.7 MCHC 34.5 RDW 16.9 Plt Count 56 L MPV 10.5 Prelim Diff (Auto) Slide review pending Neut % (Auto) 83.1 H Lymph % (Auto) 5.3 L [place] % (Auto) 8.4 H Eos % (Auto) 1.9 Baso % (Auto) 1.3 Neut # (Auto) 2.7 Lymph # (Auto) 0.2 L [place] # (Auto) 0.3 Eos # (Auto) 0.1 Baso # (Auto) 0.0 WBC Differential . Diff Scan Auto diff confirmed Differential Comment . Ovalocytes 1+ H Sodium Potassium Chloride Carbon Dioxide Anion Gap BUN Creatinine Estimated GFR POC Glucose 149 H Random Glucose Hemoglobin A1c 6.1 H Calcium Phosphorus Total Bilirubin AST ALT Alkaline Phosphatase Total Protein Albumin 05/14/18 05/14/18 05/14/18 04:47 07:33 11:53 WBC RBC Hgb Hct MCV MCH MCHC RDW Plt Count MPV Prelim Diff (Auto) Neut % (Auto) Lymph % (Auto) [place] % (Auto) Eos % (Auto) Baso % (Auto) Neut # (Auto) Lymph # (Auto) [place] # (Auto) Eos # (Auto) Baso # (Auto) WBC Differential Diff Scan Differential Comment Ovalocytes Sodium 140 Potassium 4.0 Chloride 102 Carbon Dioxide 28.3 Anion Gap 10 BUN 66 H Creatinine 3.22 H Estimated GFR 18 L POC Glucose 127 H 176 H Random Glucose 120 H Hemoglobin A1c Calcium 8.2 L Phosphorus 4.3 Total Bilirubin 0.8 AST 46 H ALT 33 Alkaline Phosphatase 201 H Total Protein 6.8 Albumin 3.0 L <Lina Hassan - Last Filed: 05/14/18 13:38> - Labs CBC & Chem 7: 05/14/18 04:47 05/14/18 04:47 Laboratory Results - last 24 hr 05/13/18 05/14/18 05/14/18 08:13 04:18 04:47 WBC 3.2 L RBC 2.40 L Hgb 7.9 L Hct 22.8 L MCV 94.9 MCH 32.7 MCHC 34.5 RDW 16.9 Plt Count 56 L MPV 10.5 Prelim Diff (Auto) Slide review pending Neut % (Auto) 83.1 H Lymph % (Auto) 5.3 L [place] % (Auto) 8.4 H Eos % (Auto) 1.9 Baso % (Auto) 1.3 Neut # (Auto) 2.7 Lymph # (Auto) 0.2 L [place] # (Auto) 0.3 Eos # (Auto) 0.1 Baso # (Auto) 0.0 WBC Differential . Diff Scan Auto diff confirmed Differential Comment . Ovalocytes 1+ H Sodium Potassium Chloride Carbon Dioxide Anion Gap BUN Creatinine Estimated GFR POC Glucose 149 H Random Glucose Hemoglobin A1c 6.1 H Calcium Phosphorus Total Bilirubin AST ALT Alkaline Phosphatase Total Protein Albumin Peritoneal RBC Periton Nuc Cells Periton Neutrophils Periton Lymphocytes Peritoneal Monocytes Peritoneal Eosinophils Periton Mesothelial Periton Histiocytes Peritoneal Tot Protein Peritoneal Albumin Peritoneal LDH Peritoneal Glucose Peritoneal Amylase 05/14/18 05/14/18 05/14/18 04:47 07:33 11:53 WBC RBC Hgb Hct MCV MCH MCHC RDW Plt Count MPV Prelim Diff (Auto) Neut % (Auto) Lymph % (Auto) [place] % (Auto) Eos % (Auto) Baso % (Auto) Neut # (Auto) Lymph # (Auto) [place] # (Auto) Eos # (Auto) Baso # (Auto) WBC Differential Diff Scan Differential Comment Ovalocytes Sodium 140 Potassium 4.0 Chloride 102 Carbon Dioxide 28.3 Anion Gap 10 BUN 66 H Creatinine 3.22 H Estimated GFR 18 L POC Glucose 127 H 176 H Random Glucose 120 H Hemoglobin A1c Calcium 8.2 L Phosphorus 4.3 Total Bilirubin 0.8 AST 46 H ALT 33 Alkaline Phosphatase 201 H Total Protein 6.8 Albumin 3.0 L Peritoneal RBC Periton Nuc Cells Periton Neutrophils Periton Lymphocytes Peritoneal Monocytes Peritoneal Eosinophils Periton Mesothelial Periton Histiocytes Peritoneal Tot Protein Peritoneal Albumin Peritoneal LDH Peritoneal Glucose Peritoneal Amylase 05/14/18 05/14/18 05/14/18 13:58 13:58 17:23 WBC RBC Hgb Hct MCV MCH MCHC RDW Plt Count MPV Prelim Diff (Auto) Neut % (Auto) Lymph % (Auto) [place] % (Auto) Eos % (Auto) Baso % (Auto) Neut # (Auto) Lymph # (Auto) [place] # (Auto) Eos # (Auto) Baso # (Auto) WBC Differential Diff Scan Differential Comment Ovalocytes Sodium Potassium Chloride Carbon Dioxide Anion Gap BUN Creatinine Estimated GFR POC Glucose 261 H Random Glucose Hemoglobin A1c Calcium Phosphorus Total Bilirubin AST ALT Alkaline Phosphatase Total Protein Albumin Peritoneal RBC 3477 H Periton Nuc Cells 141 H Periton Neutrophils 40 Periton Lymphocytes 12 Peritoneal Monocytes 4 Peritoneal Eosinophils 4 Periton Mesothelial 24 Periton Histiocytes 16 Peritoneal Tot Protein 3.6 Peritoneal Albumin 1.8 Peritoneal LDH 114 Peritoneal Glucose 144 Peritoneal Amylase 19 05/14/18 19:47 WBC RBC Hgb Hct MCV MCH MCHC RDW Plt Count MPV Prelim Diff (Auto) Neut % (Auto) Lymph % (Auto) [place] % (Auto) Eos % (Auto) Baso % (Auto) Neut # (Auto) Lymph # (Auto) [place] # (Auto) Eos # (Auto) Baso # (Auto) WBC Differential Diff Scan Differential Comment Ovalocytes Sodium Potassium Chloride Carbon Dioxide Anion Gap BUN Creatinine Estimated GFR POC Glucose 162 H Random Glucose Hemoglobin A1c Calcium Phosphorus Total Bilirubin AST ALT Alkaline Phosphatase Total Protein Albumin Peritoneal RBC Periton Nuc Cells Periton Neutrophils Periton Lymphocytes Peritoneal Monocytes Peritoneal Eosinophils Periton Mesothelial Periton Histiocytes Peritoneal Tot Protein Peritoneal Albumin Peritoneal LDH Peritoneal Glucose Peritoneal Amylase - Imaging Impressions Paracentesis Ultrasound 05/14/18 00:00 CONCLUSION: 1. Uncomplicated paracentesis. Preliminary report by: Greg Oconnell PA-C 05/14/2018 4:04 PM EDT <Umair Colbert - Last Filed: 05/14/18 21:16> Assessment and Plan (1) GI bleed Status: Acute Code(s): K92.2 - Gastrointestinal hemorrhage, unspecified - Plan 05/14/2018 GI bleed Patient post EGD/colonoscopy,these are the following findings: -Hiatal hernia -Colon polyps -Diverticulosis -Internal and external hemorrhoids We will continue to monitor for any noted bleeding. Hemoglobin 7.9 hematocrit 22.8 platelet count 56. Ascites Patient to interventional radiology for diagnostic/therapeutic paracentesis today Plan -Diet as tolerated-regular high-fiber -Monitor hemoglobin/transfuse if required -Monitor for any obvious bleeding -Hold 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 -Await paracentesis results -Recommended repeat colonoscopy in 5 years unless otherwise indicated -Supportive care -Further recommendations to follow This patient has been seen by myself and Dr. Colbert and this note is written on his behalf - Attending Attestation Dr. Colbert <Lina Hassan - Last Filed: 05/14/18 13:38> (1) GI bleed Status: Acute Code(s): K92.2 - Gastrointestinal hemorrhage, unspecified - Plan Patient seen and examined Agree with above Continue with current supportive care Monitor labs The SAAG from the paracentesis is greater than 1.1 consistent with portal hypertension We will need to proceed with abdominal imaging to further evaluate for cirrhosis <Umair Colbert - Last Filed: 05/14/18 21:16>
[2018-05-14] MEDS: Sod Chloride 0.9% Inj 1,000 ML IV.CONT SCH (13:58)
[2018-05-14] MEDS ORDERED: Albumin Human 25% Inj 250 ML IV.SIG ONE (15:29)
--- NOTE | 2018-05-14 16:05 | US ---
EXAM DATE: 05/14/2018 3:05 PM EDT AGE/SEX: 87 years / Male INDICATIONS: Ascites. CLINICAL DATA: This is the patient's initial encounter. Patient reports that signs and symptoms have been present for 3 days and indicates a pain score of 1/10. MEDICAL/SURGICAL HISTORY: . Chronic obstructive pulmonary disease. Diabetes. Gastroesophageal r eflux disease. Chronic Kidney Disease. Hypertension. Stroke. . 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 Cholecystectomy. Tonsillectomy. Cataract removal with insertion of prosthetic lens. Small surya l resection. Colonoscopy. Transcatheter Aortic Valve Replacement (bioprosthetic). COMPARISON: . FLUID: Total volume of 9100 cc of Nirmala fluid was removed. Fluid was sent to lab for ordered studies. . . TECHNIQUE: Ultrasound guidance for abdominal paracentesis. Paracentesis. The risks, benefits, and alternatives to ultrasound guided paracentesis were explained to the patient in detail including the risk of bleeding and infection. Written and verbal informed consent was obt ained. With the patient on the ultrasound table, ultrasound imaging was used to select the most appropriate approach for paracentesis. Overlying skin was prepped and draped in the usual sterile fashion and wi th a local anesthetic, a dermatotomy was made with an 11 blade scalpel. A 6 Czech [id number] ca theter was introduced into the peritoneal cavity and fluid was collected. Post procedure scanning reveals no hematoma or other complication. The patient tolerated the procedu re well and left the ultrasound suite in stable condition. FINDINGS: Adequate fluid for paracentesis. CONCLUSION: 1. Uncomplicated paracentesis. Preliminary report by: Greg Oconnell PA-C 05/15/2018 4:32 PM EDT As the Attending Radiologist for this case, I was onsite and immediately available to consult and/or assist during the procedure. Electronically signed by: Tyson García MD 05/15/2018 5:20 PM EDT
[2018-05-14 16:54] LABS: Total Protein,Peritoneal Fluid 3.6 gm/dL
--- NOTE | 2018-05-14 17:19 | P.PNNP ---
Subjective Interval history: patient had about 9100 ml of ascitic fluid tapped. Feels better after the procedure. Renal function is about the same as yesterday. Physical Exam Vital signs: Vital Signs 05/13/18 20:00 05/14/18 00:00 05/14/18 04:00 Temperature 97.3 F L 98.1 F 97.8 F Pulse Rate 66 69 69 Respiratory Rate 18 18 18 Blood Pressure 110/54 L 110/54 L 90/53 L Pulse Oximetry 99 98 97 05/14/18 08:00 05/14/18 10:31 05/14/18 12:00 Temperature 98.1 F 97.5 F L Pulse Rate 69 70 Respiratory Rate 17 20 Blood Pressure 138/108 H 114/56 L Pulse Oximetry 94 L 99 99 05/14/18 13:18 05/14/18 14:45 05/14/18 15:02 Temperature 97.7 F 98.0 F 97.9 F Pulse Rate 112 H 65 66 Respiratory Rate 20 18 18 Blood Pressure 111/62 107/56 L 100/49 L Pulse Oximetry 98 100 100 Intake & Output 05/13/18 05/14/18 05/14/18 18:59 06:59 18:59 Intake Total 1400 / 1400 1000 / 1000 1000 / 1000 Output Total 500 / 500 Balance 1400 / 1400 500 / 500 1000 / 1000 Weight 90.3 kg Intake: IV 800 / 800 1000 / 1000 1000 / 1000 NS Inj 1,000 ML @ 75 mls/hr IV. 800 / 800 1000 / 1000 1000 / 1000 CONT .[id number] [facility] Rx#:[id number] Anesthesia Amount 600 / 600 Output: Urine 500 / 500 Other: Date of Last Bowel Movement 05/13/18 Narrative: GENERAL: NAD, A&Ox3 HEAD: Normocephalic. NECK: Supple, trachea midline. No lymphadenopathy. EYES: No scleral icterus. No injection or drainage. CARDIOVASCULAR: Regular rate and rhythm without murmurs, gallops, or rubs. RESPIRATORY: Breath sounds equal bilaterally. No accessory muscle use. GASTROINTESTINAL: Abdomen soft, non-tender, not distended today MUSCULOSKELETAL: No cyanosis, or edema. SKIN: Warm and dry. NEURO: No focal neurological deficits. Assessment and Plan - Assessment (1) [id number] kidney injury Code(s): N17.9 - Acute kidney failure, unspecified; N18.9 - Chronic kidney disease, unspecified Status: Acute Plan: could be due to renal hypoperfusion, but he also has ascites. MILLI could be due to increased renal vein pressure, monitor after therapeutic paracentesis. I have started Albumin to prevent MILLI. I have stopped IVF. Avoid nephrotoxic agents. (2) Anemia Code(s): D64.9 - Anemia, unspecified Status: Acute Plan: Also has thrombocytopenia and leukopenia. Possible GI bleed as well. GI on the case, colonoscopy planned for today. Consider Hem/Onc evaluation. (3) Ascites Code(s): R18.8 - Other ascites Status: Acute Plan: s/p paracentesis. Etiology needs to be determined. (4) Atrial fibrillation Code(s): I48.91 - Unspecified atrial fibrillation Status: Acute Plan: Anticoagulation held due to anemia and GI bleeding.
[2018-05-14 17:24] LABS: Eosinophils,Peritoneal Fluid 4 %; Mesothelial,Peritoneal Fluid 24 %; Neutrophils,Peritoneal Fluid 40 %
[2018-05-14 17:25] LABS: RBC,Peritoneal Fluid 3477 /mm3 (0-0)
[2018-05-14] MEDS: Albumin Human 25% Inj 50 ML IV.SIG SCH ×2 (18:00→22:03)
[2018-05-14] MEDS: Insulin Detemir Inj 1,000 UNIT/10 ML Vial SQ SCH (18:25)
[2018-05-15] MEDS: Insulin NovoLOG Aspart Correctional Sugar Inj SQ SCH ×5 (03:18→22:39)
[2018-05-15] MEDS: Albumin Human 25% Inj 50 ML IV.SIG SCH ×3 (03:18→15:51)
[2018-05-15 07:49] LABS: Eos # (Auto) 0.1 th/mm3 (0.0-0.4); Hematocrit 21.8 % (39.0-51.0); Hemoglobin 7.4 gm/dL (13.0-17.0); Lymph # (Auto) 0.2 th/mm3 (1.0-4.8); Lymph % (Auto) 9.2 % (9.0-44.0); Mean Corpuscular HGB Conc 34.2 % (32.0-36.0); Mean Corpuscular Hemoglobin 32.5 pg (27.0-34.0); Mean Corpuscular Volume 95.1 fL (80.0-100.0); Mean Platelet Volume 10.1 fL (7.0-11.0); Mono # (Auto) 0.2 th/mm3 (0.0-0.9); Neut # (Auto) 1.5 th/mm3 (1.8-7.7); Neut % (Auto) 75.8 % (16.0-70.0); Platelet Count 44 th/mm3 (150-450); Red Blood Count 2.29 mil/mm3 (4.50-5.90); Red Cell Distribution Width 16.7 % (11.6-17.2)
[2018-05-15 08:23] LABS: Alanine Aminotransferase 29 U/L (12-78); Albumin 3.4 g/dL (3.4-5.0); Alkaline Phosphatase 155 U/L (45-117); Anion Gap 8 meq/L (5-15); Aspartate Aminotransferase 41 U/L (15-37); Blood Urea Nitrogen 61 mg/dL (7-18); Calcium 8.6 mg/dL (8.5-10.1); Carbon Dioxide 27.7 meq/L (21.0-32.0); Chloride 106 meq/L (98-107); Glomerular Filtration Rate 20 mL/min (>89); Glucose,Random 53 mg/dL (74-106); Potassium 3.6 meq/L (3.5-5.1); Sodium 142 meq/L (136-145); Total Protein 6.2 g/dL (6.4-8.2)
[2018-05-15] MEDS ORDERED: Sodium Chlor 0.9% Inj 250 ML IV.SIG SCH (09:00)
[2018-05-15] MEDS: Loratadine 10 MG Tablet PO SCH (09:59)
[2018-05-15] MEDS: Folic Acid 1 MG Tablet PO SCH (09:59)
[2018-05-15] MEDS: Pantoprazole Inj 40 MG Vial IV.PUSH SCH ×2 (10:00→22:40)
[2018-05-15] MEDS: Senna/Docusate Sodium 8.6/50 MG Tablet PO SCH ×2 (10:00→22:40)
[2018-05-15] MEDS: Finasteride 5 MG Tablet PO SCH (10:00)
[2018-05-15] MEDS: amLODIPine 5 MG Tablet PO SCH (10:00)
--- NOTE | 2018-05-15 10:25 | US ---
EXAM DATE: 05/15/2018 10:15 AM EDT AGE/SEX: 87 years / Male INDICATIONS: Abnormal labs. CLINICAL DATA: This is the patient's subsequent encounter. Patient reports that signs and symptoms h ave been present for 1 day and indicates a pain score of 0/10. MEDICAL/SURGICAL HISTORY: Diabetes. Hypertension. Afib. BPH. COPD. GERD. Malignant neuroendocr ine tumor. Skin cancer. Stroke. Pacemaker. Cholecystectomy. Tonsillectomy. Bowel resection. Loop recorder. Aortic valve replacement. COMPARISON: [facility] [place], CT ABDOMEN & PELVIS W/O CONTRAST, 09/19/2017. . MEASUREMENTS: Liver:__ 15.3 cm cm. Common Bile Duct:__ 6mm. Right Kidney:__ 11.6 x 4.3 x 5.2 cm. FINDINGS: Liver: Echogenic liver, lobular in appearance. Portal Vein: Hepatopedal flow seen in portal vein. Common Duct: No intraluminal mass or stone visualized. Gallbladder: Surgically absent. Pancreas: The visualized portions are within normal limits Right Kidney: Multiple cysts. Other: Spleen upper limits normal CONCLUSION: 1. 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 2. Gallbladder surgically absent. No biliary ductal dilatation. 3. Multiple right renal cysts. Electronically signed by: Perfecto Galvan MD 05/15/2018 10:24 AM EDT
[2018-05-15 12:43] VITALS: RESP 18
--- NOTE | 2018-05-15 15:25 | P.DS ---
Date of admission: 05/12/18 15:01 Primary care physician: Praveen Tejeda Brief History from admission: Patient is an 87-year-old male with an extensive history of chronic kidney disease, iron deficiency anemia, diabetes mellitus, GERD, hypertension, history of a TAVR and recent permanent pacemaker as well as aortic valve surgery. Patient was noted to have abnormal lab work. That he had outpatient 4 days ago. Was called by his entry level marketing representative Dr. RANDALL and told to come to to the hospital for transfusion and evaluation. The patient reports that he has been fatigued over the past few months, but not worse lately or acutely. He denies any chest pain, denies any shortness of breath, denies any abdominal pain , denies any nausea or vomiting, denies any earache, denies any black or tarry stools, denies any hematemesis. Had recently been on Eliquis, but this is been discontinued 2 weeks ago. He still takes a baby aspirin daily. Denies any other complaints at this time. Was also sent by his sports medicine specialist regarding his worsening renal functions. Again his past medical history includes hyperlipidemia,, BPH, diabetes mellitus , seasonal allergies, hypertension, constipation, history of hemorrhoids, Patient was noted to have a heme positive stool and will be admitted and consult nephrology as well as gastroenterology Family history is positive for hypertension and possible diabetes DS: Summary Hospital Course: Mr. Miller is an 87-year-old male. He is admitted secondary to anemia from GI bleed combined with acute kidney injury. He had previously been on Eliquis which will be discontinued at this point. With discontinuation of Eliquis he has had relative stability of his hemoglobin levels. Hemoglobin has trended up approximately 7.9 since time of admit. No transfusion was provided earlier based on that. Renal function has gradually improved through time though he is not back to baseline. Ascites was found during renal workup and etiology is unknown but could be related to underlying liver disease. Transudate is present on workup. No signs of abdominal masses on colonoscopy or ultrasound. Patient is eager to return to home secondary to his having newly diagnosed cancer. Yesterday he had a paracentesis. No electrolyte disturbance today. He does have continuation of renal improvement status post paracentesis. This morning he had a hemoglobin of 7.4. Transfusion of 2 units packed red blood cells is provided. He is having albumin transfusions today also. Patient will be discharged after transfusion. Outpatient follow-up of hemoglobin and creatinine planned in 3-5 days. This is patient's first episode of ascites. If ascites occurs again further workup will be needed. - Time Spent with Patient Total time spent providing and/or coordinating discharge services: Less than 30 minutes - Quality: VTE Deep Vein Thrombosis/Pulmonary Embolism Present on Admission: No Exam Vital signs: Vital Signs 05/14/18 16:00 05/14/18 20:00 05/15/18 00:00 Temperature 97.7 F 97.2 F L Pulse Rate 64 69 69 Respiratory Rate 18 18 18 Blood Pressure 103/51 L 109/52 L 97/56 L Pulse Oximetry 99 100 97 05/15/18 04:00 05/15/18 08:00 05/15/18 12:00 Temperature 97.3 F L 97.4 F L 97.6 F Pulse Rate 70 69 69 Respiratory Rate 18 20 20 Blood Pressure 102/54 L 95/55 L 106/52 L Pulse Oximetry 97 99 99 05/15/18 12:41 05/15/18 13:03 Temperature 97.2 F L 97.7 F Pulse Rate 78 66 Respiratory Rate 18 18 Blood Pressure 122/54 L 117/57 L Pulse Oximetry 100 100 Intake & Output 05/14/18 05/15/18 05/15/18 18:59 06:59 18:59 Intake Total 1050 / 1050 1000 / 1000 50 / 50 Output Total 200 / 200 800 / 800 Balance 850 / 850 200 / 200 50 / 50 Weight 89.6 kg Intake: IV 1050 / 1050 1000 / 1000 50 / 50 NS Inj 1,000 ML @ 75 mls/hr IV. 1000 / 1000 CONT .[id number] [facility] Rx#:[id number] Flexbumin 25% Inj 50 ML @ 60 50 / 50 350 / 350 50 / 50 mls/hr IV.SIG Q6H [facility] Rx#: [id number] Intake (Blood Product) Amt 0 / 0 Rbc As-3 Leukoreduced Unit 0 / 0 [id number] Output: Urine 200 / 200 800 / 800 Other: # Voids 5 Date of Last Bowel Movement 05/14/18 05/14/18 # Bowel Movements 2 Results Procedures completed during hospitalization: Colonoscopy Paracentesis Blood transfusion Completed studies during hospitalization: Pending at discharge 05/13/18 07:28 Surgical [PTH] Routine Labs on day of discharge: Labs from last 24 hours 05/15/18 05/15/18 05/15/18 11:32 10:34 09:00 WBC RBC Hgb Hct MCV MCH MCHC RDW Plt Count MPV Prelim Diff (Auto) Neut % (Auto) Lymph % (Auto) [place] % (Auto) Eos % (Auto) Baso % (Auto) Neut # (Auto) Lymph # (Auto) [place] # (Auto) Eos # (Auto) Baso # (Auto) WBC Differential Diff Scan Differential Comment Platelet Estimate Platelet Morphology Sodium Potassium Chloride Carbon Dioxide Anion Gap BUN Creatinine Estimated GFR POC Glucose 119 H Random Glucose 94 Calcium Magnesium Total Bilirubin AST ALT Alkaline Phosphatase Total Protein Albumin Peritoneal RBC Periton Nuc Cells Periton Neutrophils Periton Lymphocytes Peritoneal Monocytes Peritoneal Eosinophils Periton Mesothelial Periton Histiocytes Peritoneal Tot Protein Peritoneal Albumin Peritoneal LDH Peritoneal Glucose Peritoneal Amylase Blood Type A Positive Antibody Screen Negative MTS Gel Crossmatch See Detail 05/15/18 05/15/18 05/15/18 07:54 06:57 06:57 WBC 2.0 L RBC 2.29 L Hgb 7.4 L Hct 21.8 L MCV 95.1 MCH 32.5 MCHC 34.2 RDW 16.7 Plt Count 44 L MPV 10.1 Prelim Diff (Auto) Slide review pending Neut % (Auto) 75.8 H Lymph % (Auto) 9.2 [place] % (Auto) 11.0 H Eos % (Auto) 3.0 Baso % (Auto) 1.0 Neut # (Auto) 1.5 L Lymph # (Auto) 0.2 L [place] # (Auto) 0.2 Eos # (Auto) 0.1 Baso # (Auto) 0.0 WBC Differential . Diff Scan Auto diff confirmed Differential Comment . Platelet Estimate Low L Platelet Morphology Enlarged H Sodium 142 Potassium 3.6 Chloride 106 Carbon Dioxide 27.7 Anion Gap 8 BUN 61 H Creatinine 2.99 H Estimated GFR 20 L POC Glucose 59 L Random Glucose 53 L Calcium 8.6 Magnesium Total Bilirubin 0.7 AST 41 H ALT 29 Alkaline Phosphatase 155 H Total Protein 6.2 L D Albumin 3.4 Peritoneal RBC Periton Nuc Cells Periton Neutrophils Periton Lymphocytes Peritoneal Monocytes Peritoneal Eosinophils Periton Mesothelial Periton Histiocytes Peritoneal Tot Protein Peritoneal Albumin Peritoneal LDH Peritoneal Glucose Peritoneal Amylase Blood Type Antibody Screen MTS Gel Crossmatch 05/15/18 05/14/18 05/14/18 00:55 19:47 17:23 WBC RBC Hgb Hct MCV MCH MCHC RDW Plt Count MPV Prelim Diff (Auto) Neut % (Auto) Lymph % (Auto) [place] % (Auto) Eos % (Auto) Baso % (Auto) Neut # (Auto) Lymph # (Auto) [place] # (Auto) Eos # (Auto) Baso # (Auto) WBC Differential Diff Scan Differential Comment Platelet Estimate Platelet Morphology Sodium Potassium Chloride Carbon Dioxide Anion Gap BUN Creatinine Estimated GFR POC Glucose 162 H 261 H Random Glucose Calcium Magnesium 2.3 Total Bilirubin AST ALT Alkaline Phosphatase Total Protein Albumin Peritoneal RBC Periton Nuc Cells Periton Neutrophils Periton Lymphocytes Peritoneal Monocytes Peritoneal Eosinophils Periton Mesothelial Periton Histiocytes Peritoneal Tot Protein Peritoneal Albumin Peritoneal LDH Peritoneal Glucose Peritoneal Amylase Blood Type Antibody Screen MTS Gel Crossmatch 05/14/18 05/14/18 13:58 13:58 WBC RBC Hgb Hct MCV MCH MCHC RDW Plt Count MPV Prelim Diff (Auto) Neut % (Auto) Lymph % (Auto) [place] % (Auto) Eos % (Auto) Baso % (Auto) Neut # (Auto) Lymph # (Auto) [place] # (Auto) Eos # (Auto) Baso # (Auto) WBC Differential Diff Scan Differential Comment Platelet Estimate Platelet Morphology Sodium Potassium Chloride Carbon Dioxide Anion Gap BUN Creatinine Estimated GFR POC Glucose Random Glucose Calcium Magnesium Total Bilirubin AST ALT Alkaline Phosphatase Total Protein Albumin Peritoneal RBC 3477 H Periton Nuc Cells 141 H Periton Neutrophils 40 Periton Lymphocytes 12 Peritoneal Monocytes 4 Peritoneal Eosinophils 4 Periton Mesothelial 24 Periton Histiocytes 16 Peritoneal Tot Protein 3.6 Peritoneal Albumin 1.8 Peritoneal LDH 114 Peritoneal Glucose 144 Peritoneal Amylase 19 Blood Type Antibody Screen MTS Gel Crossmatch - Impressions ITS Impressions Abdomen/Bladder Ultrasound 05/12/18 00:00 CONCLUSION: 1. Bilateral renal cysts with significant amount of ascites. Paracentesis Ultrasound 05/14/18 00:00 CONCLUSION: 1. Uncomplicated paracentesis. Preliminary report by: Greg Oconnell PA-C 05/14/2018 4:04 PM EDT Liver Ultrasound 05/15/18 00:00 CONCLUSION: 1. 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 2. Gallbladder surgically absent. No biliary ductal dilatation. 3. Multiple right renal cysts. Discharge Plan - Discharge Disposition Patient Disposition: Discharge Home - Discharge Condition Condition: Stable - Discharge Order Discharge Orders: Discharge Order (Routine); Ordered 05/15/18 Ordered By: Mahamed Grajeda - Discharge Details Anticipated Discharge Date: 05/15/18 Discharge Comment: After blood transfussion and albumin transfussions completed. - Physicians Team Attending Provider: Mahamed Grajeda Other Providers: Umair Colbert MD ; Keith Parrish MD ; Darin Webster
--- NOTE | 2018-05-15 15:52 | P.PNGI ---
Subjective Interval history: Patient sitting upright in bed awake and alert. Denies any noted bleeding, reports increased comfort since paracentesis. RBC transfusion in progress, plan for discharge home posttransfusion <Lina Hassan - Last Filed: 05/15/18 15:43> Physical Exam Vital signs: Vital Signs 05/14/18 16:00 05/14/18 20:00 05/15/18 00:00 Temperature 97.7 F 97.2 F L Pulse Rate 64 69 69 Respiratory Rate 18 18 18 Blood Pressure 103/51 L 109/52 L 97/56 L Pulse Oximetry 99 100 97 05/15/18 04:00 05/15/18 08:00 05/15/18 12:00 Temperature 97.3 F L 97.4 F L 97.6 F Pulse Rate 70 69 69 Respiratory Rate 18 20 20 Blood Pressure 102/54 L 95/55 L 106/52 L Pulse Oximetry 97 99 99 05/15/18 12:41 05/15/18 13:03 Temperature 97.2 F L 97.7 F Pulse Rate 78 66 Respiratory Rate 18 18 Blood Pressure 122/54 L 117/57 L Pulse Oximetry 100 100 Intake & Output 05/14/18 05/15/18 05/15/18 18:59 06:59 18:59 Intake Total 1050 / 1050 1000 / 1000 50 / 50 Output Total 200 / 200 800 / 800 Balance 850 / 850 200 / 200 50 / 50 Weight 89.6 kg Intake: IV 1050 / 1050 1000 / 1000 50 / 50 NS Inj 1,000 ML @ 75 mls/hr IV. 1000 / 1000 CONT .[id number] [facility] Rx#:[id number] Flexbumin 25% Inj 50 ML @ 60 50 / 50 350 / 350 50 / 50 mls/hr IV.SIG Q6H [facility] Rx#: [id number] Intake (Blood Product) Amt 0 / 0 Rbc As-3 Leukoreduced Unit 0 / 0 [id number] Output: Urine 200 / 200 800 / 800 Other: # Voids 5 Date of Last Bowel Movement 05/14/18 05/14/18 # Bowel Movements 2 - Constitutional no acute distress - Routine HEENT Exam Head: Present: normocephalic - Routine Respiratory Exam Present: CTA bilaterally. Absent: accessory muscle use - Routine Abdominal Exam Present: soft, normoactive bowel sounds, distended. Absent: tenderness, guarding, firm - Routine Extremities Exam Present: full ROM. Absent: edema - Routine Skin Exam Present: dry, warm - Routine Neurological Exam Present: alert, oriented X3 - Routine Psychiatric Exam Present: normal affect, cooperative <Hassan,Lina - Last Filed: 05/15/18 15:43> Vital signs: Vital Signs 05/14/18 20:00 05/15/18 00:00 05/15/18 04:00 Temperature 97.7 F 97.2 F L 97.3 F L Pulse Rate 69 69 70 Respiratory Rate 18 18 18 Blood Pressure 109/52 L 97/56 L 102/54 L Pulse Oximetry 100 97 97 05/15/18 08:00 05/15/18 12:00 05/15/18 12:41 Temperature 97.4 F L 97.6 F 97.2 F L Pulse Rate 69 69 78 Respiratory Rate 20 20 18 Blood Pressure 95/55 L 106/52 L 122/54 L Pulse Oximetry 99 99 100 05/15/18 13:03 05/15/18 16:00 05/15/18 16:20 Temperature 97.7 F 97.5 F L 97.4 F L Pulse Rate 66 69 75 Respiratory Rate 18 20 18 Blood Pressure 117/57 L 93/57 L 106/55 L Pulse Oximetry 100 98 98 05/15/18 16:51 05/15/18 17:12 05/15/18 17:24 Temperature 97.6 F 97.8 F Pulse Rate 73 70 Respiratory Rate 18 18 Blood Pressure 103/56 L 111/56 L Pulse Oximetry 99 100 99 Intake & Output 05/15/18 05/15/18 05/16/18 06:59 18:59 06:59 Intake Total 1000 / 1000 100 / 100 Output Total 800 / 800 Balance 200 / 200 100 / 100 Weight 89.6 kg Intake: IV 1000 / 1000 100 / 100 Flexbumin 25% Inj 50 ML @ 60 350 / 350 100 / 100 mls/hr IV.SIG Q6H [facility] Rx#: [id number] Intake (Blood Product) Amt 0 / 0 Rbc As-3 Leukoreduced Unit 0 / 0 [id number] Rbc As-3 Leukoreduced Unit 0 / 0 [id number] Output: Urine 800 / 800 Other: Date of Last Bowel Movement 05/14/18 <Umair Colbert E - Last Filed: 05/15/18 19:30> Results - Labs CBC & Chem 7: 05/15/18 06:57 05/15/18 09:00 Laboratory Results - last 24 hr 05/14/18 05/14/18 05/14/18 13:58 13:58 17:23 WBC RBC Hgb Hct MCV MCH MCHC RDW Plt Count MPV Prelim Diff (Auto) Neut % (Auto) Lymph % (Auto) [place] % (Auto) Eos % (Auto) Baso % (Auto) Neut # (Auto) Lymph # (Auto) [place] # (Auto) Eos # (Auto) Baso # (Auto) WBC Differential Diff Scan Differential Comment Platelet Estimate Platelet Morphology Sodium Potassium Chloride Carbon Dioxide Anion Gap BUN Creatinine Estimated GFR POC Glucose 261 H Random Glucose Calcium Magnesium Total Bilirubin AST ALT Alkaline Phosphatase Total Protein Albumin Peritoneal RBC 3477 H Periton Nuc Cells 141 H Periton Neutrophils 40 Periton Lymphocytes 12 Peritoneal Monocytes 4 Peritoneal Eosinophils 4 Periton Mesothelial 24 Periton Histiocytes 16 Peritoneal Tot Protein 3.6 Peritoneal Albumin 1.8 Peritoneal LDH 114 Peritoneal Glucose 144 Peritoneal Amylase 19 Blood Type Antibody Screen MTS Gel Crossmatch 05/14/18 05/15/18 05/15/18 19:47 00:55 06:57 WBC 2.0 L RBC 2.29 L Hgb 7.4 L Hct 21.8 L MCV 95.1 MCH 32.5 MCHC 34.2 RDW 16.7 Plt Count 44 L MPV 10.1 Prelim Diff (Auto) Slide review pending Neut % (Auto) 75.8 H Lymph % (Auto) 9.2 [place] % (Auto) 11.0 H Eos % (Auto) 3.0 Baso % (Auto) 1.0 Neut # (Auto) 1.5 L Lymph # (Auto) 0.2 L [place] # (Auto) 0.2 Eos # (Auto) 0.1 Baso # (Auto) 0.0 WBC Differential . Diff Scan Auto diff confirmed Differential Comment . Platelet Estimate Low L Platelet Morphology Enlarged H Sodium Potassium Chloride Carbon Dioxide Anion Gap BUN Creatinine Estimated GFR POC Glucose 162 H Random Glucose Calcium Magnesium 2.3 Total Bilirubin AST ALT Alkaline Phosphatase Total Protein Albumin Peritoneal RBC Periton Nuc Cells Periton Neutrophils Periton Lymphocytes Peritoneal Monocytes Peritoneal Eosinophils Periton Mesothelial Periton Histiocytes Peritoneal Tot Protein Peritoneal Albumin Peritoneal LDH Peritoneal Glucose Peritoneal Amylase Blood Type Antibody Screen MTS Gel Crossmatch 05/15/18 05/15/18 05/15/18 06:57 07:54 09:00 WBC RBC Hgb Hct MCV MCH MCHC RDW Plt Count MPV Prelim Diff (Auto) Neut % (Auto) Lymph % (Auto) [place] % (Auto) Eos % (Auto) Baso % (Auto) Neut # (Auto) Lymph # (Auto) [place] # (Auto) Eos # (Auto) Baso # (Auto) WBC Differential Diff Scan Differential Comment Platelet Estimate Platelet Morphology Sodium 142 Potassium 3.6 Chloride 106 Carbon Dioxide 27.7 Anion Gap 8 BUN 61 H Creatinine 2.99 H Estimated GFR 20 L POC Glucose 59 L Random Glucose 53 L 94 Calcium 8.6 Magnesium Total Bilirubin 0.7 AST 41 H ALT 29 Alkaline Phosphatase 155 H Total Protein 6.2 L D Albumin 3.4 Peritoneal RBC Periton Nuc Cells Periton Neutrophils Periton Lymphocytes Peritoneal Monocytes Peritoneal Eosinophils Periton Mesothelial Periton Histiocytes Peritoneal Tot Protein Peritoneal Albumin Peritoneal LDH Peritoneal Glucose Peritoneal Amylase Blood Type Antibody Screen MTS Gel Crossmatch 05/15/18 05/15/18 10:34 11:32 WBC RBC Hgb Hct MCV MCH MCHC RDW Plt Count MPV Prelim Diff (Auto) Neut % (Auto) Lymph % (Auto) [place] % (Auto) Eos % (Auto) Baso % (Auto) Neut # (Auto) Lymph # (Auto) [place] # (Auto) Eos # (Auto) Baso # (Auto) WBC Differential Diff Scan Differential Comment Platelet Estimate Platelet Morphology Sodium Potassium Chloride Carbon Dioxide Anion Gap BUN Creatinine Estimated GFR POC Glucose 119 H Random Glucose Calcium Magnesium Total Bilirubin AST ALT Alkaline Phosphatase Total Protein Albumin Peritoneal RBC Periton Nuc Cells Periton Neutrophils Periton Lymphocytes Peritoneal Monocytes Peritoneal Eosinophils Periton Mesothelial Periton Histiocytes Peritoneal Tot Protein Peritoneal Albumin Peritoneal LDH Peritoneal Glucose Peritoneal Amylase Blood Type A Positive Antibody Screen Negative MTS Gel Crossmatch See Detail - Imaging Impressions Paracentesis Ultrasound 05/14/18 00:00 CONCLUSION: 1. Uncomplicated paracentesis. Preliminary report by: Greg Oconnell PA-C 05/14/2018 4:04 PM EDT Liver Ultrasound 05/15/18 00:00 CONCLUSION: 1. 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 2. Gallbladder surgically absent. No biliary ductal dilatation. 3. Multiple right renal cysts. - Procedures Colonoscopy Paracentesis Blood transfusion <Lina Hassan - Last Filed: 05/15/18 15:43> - Labs CBC & Chem 7: 05/15/18 06:57 05/15/18 09:00 Laboratory Results - last 24 hr 05/14/18 05/15/18 05/15/18 19:47 00:55 06:57 WBC 2.0 L RBC 2.29 L Hgb 7.4 L Hct 21.8 L MCV 95.1 MCH 32.5 MCHC 34.2 RDW 16.7 Plt Count 44 L MPV 10.1 Prelim Diff (Auto) Slide review pending Neut % (Auto) 75.8 H Lymph % (Auto) 9.2 [place] % (Auto) 11.0 H Eos % (Auto) 3.0 Baso % (Auto) 1.0 Neut # (Auto) 1.5 L Lymph # (Auto) 0.2 L [place] # (Auto) 0.2 Eos # (Auto) 0.1 Baso # (Auto) 0.0 WBC Differential . Diff Scan Auto diff confirmed Differential Comment . Platelet Estimate Low L Platelet Morphology Enlarged H Sodium Potassium Chloride Carbon Dioxide Anion Gap BUN Creatinine Estimated GFR POC Glucose 162 H Random Glucose Calcium Magnesium 2.3 Total Bilirubin AST ALT Alkaline Phosphatase Total Protein Albumin Blood Type Antibody Screen MTS Gel Crossmatch 05/15/18 05/15/18 05/15/18 06:57 07:54 09:00 WBC RBC Hgb Hct MCV MCH MCHC RDW Plt Count MPV Prelim Diff (Auto) Neut % (Auto) Lymph % (Auto) [place] % (Auto) Eos % (Auto) Baso % (Auto) Neut # (Auto) Lymph # (Auto) [place] # (Auto) Eos # (Auto) Baso # (Auto) WBC Differential Diff Scan Differential Comment Platelet Estimate Platelet Morphology Sodium 142 Potassium 3.6 Chloride 106 Carbon Dioxide 27.7 Anion Gap 8 BUN 61 H Creatinine 2.99 H Estimated GFR 20 L POC Glucose 59 L Random Glucose 53 L 94 Calcium 8.6 Magnesium Total Bilirubin 0.7 AST 41 H ALT 29 Alkaline Phosphatase 155 H Total Protein 6.2 L D Albumin 3.4 Blood Type Antibody Screen MTS Gel Crossmatch 05/15/18 05/15/18 05/15/18 10:34 11:32 17:22 WBC RBC Hgb Hct MCV MCH MCHC RDW Plt Count MPV Prelim Diff (Auto) Neut % (Auto) Lymph % (Auto) [place] % (Auto) Eos % (Auto) Baso % (Auto) Neut # (Auto) Lymph # (Auto) [place] # (Auto) Eos # (Auto) Baso # (Auto) WBC Differential Diff Scan Differential Comment Platelet Estimate Platelet Morphology Sodium Potassium Chloride Carbon Dioxide Anion Gap BUN Creatinine Estimated GFR POC Glucose 119 H 240 H Random Glucose Calcium Magnesium Total Bilirubin AST ALT Alkaline Phosphatase Total Protein Albumin Blood Type A Positive Antibody Screen Negative MTS Gel Crossmatch See Detail - Imaging Impressions Paracentesis Ultrasound 05/14/18 00:00 CONCLUSION: 1. Uncomplicated paracentesis. Preliminary report by: Greg Oconnell PA-C 05/15/2018 4:32 PM EDT As the Attending Radiologist for this case, I was onsite and immediately available to consult and/or assist during the procedure. Liver Ultrasound 05/15/18 00:00 CONCLUSION: 1. 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 2. Gallbladder surgically absent. No biliary ductal dilatation. 3. Multiple right renal cysts. <Umair Colbert - Last Filed: 05/15/18 19:30> Assessment and Plan (1) GI bleed Status: Acute Code(s): K92.2 - Gastrointestinal hemorrhage, unspecified - Plan 05/14/2018 GI bleed Patient post EGD/colonoscopy,these are the following findings: -Hiatal hernia -Colon polyps -Diverticulosis -Internal and external hemorrhoids We will continue to monitor for any noted bleeding. Hemoglobin 7.9 hematocrit 22.8 platelet count 56. Ascites Patient to interventional radiology for diagnostic/therapeutic paracentesis today 05/15/2018 GI bleed Patient denies any obvious/noted bleeding. Advised to monitor for same. Hemoglobin 7.4 hematocrit 21.8 platelet count 44 Patient currently receiving transfusion of packed red blood cells and will be discharged home posttransfusion. Patient agrees to follow-up with GI post discharge. Ascites Patient is post paracentesis on 05/14/2018. Noted removal of 9100 mL's of peritoneal fluid. Patient advised to adhere to a low-sodium diet and agrees. Sac score greater than 1.1 indicative of portal hypertension. Ultrasound of abdomen revealed the following findings--probable liver cirrhosis, mild ascites , no biliary dilatation. Total bilirubin 0.7 AST 41 ALT 29 alk phos 155 albumin 3.4 Plan -Low-sodium high-fiber diet -Monitor for bleeding -Patient to have outpatient labs done to monitor hemoglobin -Hold 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 -Follow-up with GI post discharge This patient has been seen by myself and Dr. Colbert and this note is written on his behalf - Attending Attestation Dr. Colbert <Lina Hassan - Last Filed: 05/15/18 15:43> (1) GI bleed Status: Acute Code(s): K92.2 - Gastrointestinal hemorrhage, unspecified - Plan Patient seen and examined Agree with above H&P Monitor labs Continue with current supportive care Patient to follow-up with GI post discharge We do recommend low-salt diet Alpha-fetoprotein is ordered <Umair Colbert - Last Filed: 05/15/18 19:30>
--- NOTE | 2018-05-15 16:54 | P.PNNP ---
Subjective Interval history: patient seen and examined. He is receiving blood transfusion. To be discharged later today. Renal function is stable. He appears to have a new diagnosis of cirrhosis. Physical Exam Vital signs: Vital Signs 05/14/18 20:00 05/15/18 00:00 05/15/18 04:00 Temperature 97.7 F 97.2 F L 97.3 F L Pulse Rate 69 69 70 Respiratory Rate 18 18 18 Blood Pressure 109/52 L 97/56 L 102/54 L Pulse Oximetry 100 97 97 05/15/18 08:00 05/15/18 12:00 05/15/18 12:41 Temperature 97.4 F L 97.6 F 97.2 F L Pulse Rate 69 69 78 Respiratory Rate 20 20 18 Blood Pressure 95/55 L 106/52 L 122/54 L Pulse Oximetry 99 99 100 05/15/18 13:03 05/15/18 16:20 Temperature 97.7 F 97.4 F L Pulse Rate 66 75 Respiratory Rate 18 18 Blood Pressure 117/57 L 106/55 L Pulse Oximetry 100 98 Intake & Output 05/14/18 05/15/18 05/15/18 18:59 06:59 18:59 Intake Total 1050 / 1050 1000 / 1000 50 / 50 Output Total 200 / 200 800 / 800 Balance 850 / 850 200 / 200 50 / 50 Weight 89.6 kg Intake: IV 1050 / 1050 1000 / 1000 50 / 50 NS Inj 1,000 ML @ 75 mls/hr IV. 1000 / 1000 CONT .[id number] [facility] Rx#:[id number] Flexbumin 25% Inj 50 ML @ 60 50 / 50 350 / 350 50 / 50 mls/hr IV.SIG Q6H [facility] Rx#: [id number] Intake (Blood Product) Amt 0 / 0 Rbc As-3 Leukoreduced Unit 0 / 0 [id number] Output: Urine 200 / 200 800 / 800 Other: # Voids 5 Date of Last Bowel Movement 05/14/18 05/14/18 # Bowel Movements 2 Narrative: GENERAL: NAD, A&Ox3 HEAD: Normocephalic. NECK: Supple, trachea midline. No lymphadenopathy. EYES: No scleral icterus. No injection or drainage. CARDIOVASCULAR: Regular rate and rhythm without murmurs, gallops, or rubs. RESPIRATORY: Breath sounds equal bilaterally. No accessory muscle use. GASTROINTESTINAL: Abdomen soft, non-tender, some distension is noted. MUSCULOSKELETAL: No cyanosis, or edema. SKIN: Warm and dry. NEURO: No focal neurological deficits. Assessment and Plan - Assessment (1) [id number] kidney injury Code(s): N17.9 - Acute kidney failure, unspecified; N18.9 - Chronic kidney disease, unspecified Status: Acute Plan: could be due to renal hypoperfusion, but he also has ascites. MILLI could be due to increased renal vein pressure. Stable. Avoid nephrotoxic agents. (2) Anemia Code(s): D64.9 - Anemia, unspecified Status: Acute Plan: Also has thrombocytopenia and leukopenia. Possible GI bleed as well. GI on the case,s/p colonoscopy. (3) Ascites Code(s): R18.8 - Other ascites Status: Acute Plan: s/p paracentesis. Likely due to cirrhosis of the liver. (4) Atrial fibrillation Code(s): I48.91 - Unspecified atrial fibrillation Status: Acute Plan: Anticoagulation held due to anemia and GI bleeding.
[2018-05-15 17:16] VITALS: BP 111/56; PULSE 70; TEMP 97.8
[2018-05-15 17:24] VITALS: O2SAT 99
[2018-05-15] MEDS: Insulin Detemir Inj 1,000 UNIT/10 ML Vial SQ SCH (18:03)
[2018-05-15 23:53] LABS: Erythropoietin 23.5 mIU/mL (2.6-18.5)
== END 2018-05-15 21:12 | disposition home or self-care (01) ==
LOC: NEPE 10:19 → NEDA 15:01 → N04 16:11
PROVIDERS: ADMIT Hospitalist; ATTEND Hospitalist
PROC: PANENDO (2018-05-13 15:15)
PROC: COLONOS (2018-05-13 15:15)

== ENCOUNTER 2018-09-16 14:29 | Inpatient (IN) ==
--- NOTE | 2018-09-16 15:58 | ED ---
HPI General Chief Complaint: Recheck/Abnormal Lab/Rx Stated Complaint: low potassium complaint Time Seen by Provider: 09/16/18 15:34 Source: patient and family Mode of arrival: ambulatory Limitations: no limitations History of Present Illness HPI narrative: The patient is a 88-year-old female who presents to the emergency department with a family member for an abnormal lab test. The patient has a history of chronic kidney disease stage IV as well as ascites and pleural effusions. The patient has had his medications changed recently, was on Lasix at one time, they added Aldactone because of low potassium levels and continuing ascites and swelling. The patient apparently had an outpatient lab test performed earlier this week which revealed a potassium level greater than 7. The patient had a repeat potassium level earlier today that was 6.8, was called by his primary physician to come to the emergency department. The patient continues to have good urine output, denies any history of dialysis. 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 Parrish. The patient denies any chest pain, shortness of breath, nausea, vomiting, abdominal pain, muscle cramps, but has had some generalized malaise for the last several days according to a family member. MD complaint: Reports abnormal lab Initial visit (ago): day(s) Initial visit for: other Returns today for: called because of abnormal lab/test Description of abnormal result: 2 elevated potassium levels outpatient, today's was 6.8 Symptoms since prior visit: Reports no new symptoms Context: Reports called for abnormal lab result Associated symptoms: Reports none Related Data Home Medications Medication Instructions Recorded Confirmed atorvastatin 40 mg PO DAILY 02/04/18 09/16/18 cholecalciferol (vitamin D3) 1,000 unit PO DAILY 02/04/18 09/16/18 [Vitamin D3] coenzyme Q10 [Co Q-10] 100 mg PO DAILY 02/04/18 09/16/18 ferrous gluconate 2 mg/kg PO TID 02/04/18 09/16/18 finasteride 5 mg PO DAILY 02/04/18 09/16/18 folic acid 1 mg PO DAILY 02/04/18 09/16/18 furosemide 40 mg PO BID 02/04/18 09/16/18 insulin detemir U-100 [Levemir 8 unit SUB-Q QPM 02/04/18 09/16/18 U-100 Insulin] loratadine [Claritin] 10 mg PO DAILY 02/04/18 09/16/18 magnesium 500 mg PO DAILY 02/04/18 09/16/18 metolazone 2.5 mg PO Q OTHER DAY 02/04/18 09/16/18 metoprolol succinate [Toprol XL] 12.5 mg PO BID 02/04/18 09/16/18 pyridoxine (vitamin B6) [Vitamin 100 mg PO DAILY 02/04/18 09/16/18 B-6] tamsulosin 0.4 mg PO DAILY 02/04/18 09/16/18 lisinopril 10 mg PO DAILY 09/16/18 09/16/18 spironolactone 25 mg PO DAILY 09/16/18 09/16/18 Allergies Allergy/AdvReac Type Severity Reaction Status Date / Time niacin Allergy Unknown Nausea/Vomi Verified 02/04/18 21:42 ting sitagliptin AdvReac Severe STOMACH Verified 02/04/18 21:42 PAIN Review of Systems ROS: all other systems reviewed are negative [facility] Medical History Medical History Afib (Acute) BPH (benign prostatic hyperplasia) (Acute) COPD (chronic obstructive pulmonary disease) (Acute) Diabetes (Acute) GERD (gastroesophageal reflux disease) (Acute) Hx of Moh's micrographic surgery for skin cancer (Acute) Hx of malignant neuroendocrine tumor (Acute) Hypertension (Acute) Pacemaker (Acute) Stroke (Acute) Surgical History Surgical History H/O cataract removal with insertion of prosthetic lens (Acute) H/O resection of small bowel (Acute) History of cholecystectomy (Acute) History of cholecystectomy (Acute) History of loop recorder (Acute) History of tonsillectomy (Acute) Hx of colonoscopy (Acute) S/p TAVR (transcatheter aortic valve replacement), bioprosthetic (Acute) Family History Family History Other Family history of hypertension Kidney disease Patient's father is Patient's mother is Stroke Social History Social History Substance History: No History of Abuse Second Hand Smoke Exposure: No Smoking Status: Former smoker Tobacco Type: Cigarettes Years Smoked: 17 How Often Do You Have a Drink Containing Alcohol: Never Hx Recent Travel: No Recent Travel in [facility] within the Last 8 Weeks: No Recent Out of Country Travel within the Last 8 Weeks: No Exam Narrative Exam Narrative: GENERAL: Awake, alert, very pleasant 88-year-old male who appears his stated age and is in no acute respiratory distress. SKIN: Large somewhat circular postoperative skin lesion on the top of the head. HEAD: Atraumatic. Normocephalic. EYES: No scleral icterus. ENT: No nasal bleeding or discharge. Mucous membranes pink and moist. NECK: Trachea midline. No JVD. CARDIOVASCULAR: Regular rate and rhythm. No murmur appreciated. RESPIRATORY: No accessory muscle use. Clear to auscultation. Breath sounds equal bilaterally. GASTROINTESTINAL: Abdomen soft, non-tender, nondistended. Ventral diastases of the abdomen noted. MUSCULOSKELETAL: No obvious deformities. No clubbing. No cyanosis. No edema. NEUROLOGICAL: Awake and alert. No obvious cranial nerve deficits. Motor grossly within normal limits. Normal speech. PSYCHIATRIC: Appropriate mood and affect; insight and judgment normal. Course Initial Documented Vital Signs Temperature 97.3 F L 09/16/18 14:32 Pulse Rate 70 09/16/18 14:32 Respiratory Rate 19 09/16/18 14:32 Blood Pressure 103/53 L 09/16/18 14:32 Pulse Oximetry 100 09/16/18 14:32 Last Documented Vital Signs Temperature 97.3 F L 09/16/18 14:32 Pulse Rate 69 09/16/18 15:59 Respiratory Rate 21 09/16/18 15:59 Blood Pressure 124/65 09/16/18 15:59 Pulse Oximetry 100 09/16/18 15:59 Medical Decision Making MDM Narrative Medical decision making narrative: IV was established, labs are drawn and sent, and the patient was placed on cardiac telemetry monitoring and continuous pulse oximetry monitoring. EKG was ordered and interpreted. Potassium level, magnesium level, and phosphorus level were sent to lab. The patient's potassium today was 6.6, no evidence of hemolysis. The patient's BUN was 130 and creatinine 5.53. I reviewed the EMR, the patient's creatinine on April was 2.99. EKG was interpreted, reveals what appears to be a paced rhythm. Chest x-ray does not reveal a pacemaker, however, there does appear to be pacer spikes on the EKG. The patient was administer insulin, D50, bicarbonate, and Lasix. I discussed the patient with Dr. Parrish, the patient' s electric repair supervisor who agrees with admission to [facility] in consultation to nephrology. I discussed the plan of care with the patient and his family member at bedside. The patient will be admitted. I discussed the patient with Dr. Jalloh who agrees with admission. Medical Screen Exam Complete: Yes Emergency Medical Condition: Yes Differential Diagnosis Differential Diagnosis: Differential diagnosis includes hyperkalemia, chronic kidney disease, acute on chronic kidney disease, medication side effect, lab error, hemolysis. Lab Data Result diagrams: 09/16/18 15:54 09/16/18 15:54 Lab Results 09/16/18 09/16/18 Range/Units 15:54 15:54 WBC 3.6 L (4.0-11.0) th/mm3 RBC 3.02 L (4.50-5.90) mil/mm3 Hgb 10.1 L (13.0-17.0) gm/dL Hct 30.2 L (39.0-51.0) % MCV 100.2 H (80.0-100.0) fL MCH 33.4 (27.0-34.0) pg MCHC 33.3 (32.0-36.0) % RDW 14.7 (11.6-17.2) % Plt Count 115 L (150-450) th/mm3 MPV 9.2 (7.0-11.0) fL Neut % (Auto) 70.9 H (16.0-70.0) % Lymph % (Auto) 6.4 L (9.0-44.0) % [place] % (Auto) 9.4 H (0.0-8.0) % Eos % (Auto) 10.9 H (0.0-4.0) % Baso % (Auto) 2.4 H (0.0-2.0) % Neut # (Auto) 2.6 (1.8-7.7) th/mm3 Lymph # (Auto) 0.2 L (1.0-4.8) th/mm3 [place] # (Auto) 0.3 (0.0-0.9) th/mm3 Eos # (Auto) 0.4 (0.0-0.4) th/mm3 Baso # (Auto) 0.1 (0.0-0.2) th/mm3 WBC Differential . Differential Comment Auto diff final Sodium 132 L (136-145) meq/L Potassium 6.6 H* (3.5-5.1) meq/L Chloride 105 (98-107) meq/L Carbon Dioxide 19.0 L (21.0-32.0) meq/L Anion Gap 8 (5-15) meq/L BUN 130 H (7-18) mg/dL Creatinine 5.53 H (0.60-1.30) mg/dL Estimated GFR 10 L (>89) mL/min Random Glucose 127 H (74-106) mg/dL Calcium 8.2 L (8.5-10.1) mg/dL Phosphorus 7.7 H (2.5-4.9) mg/dL Magnesium 3.7 H (1.5-2.5) mg/dL Total Bilirubin 0.4 (0.2-1.0) mg/dL AST 41 H (15-37) U/L ALT 35 (12-78) U/L Alkaline Phosphatase 250 H (45-117) U/L Total Protein 8.3 H (6.4-8.2) g/dL Albumin 3.5 (3.4-5.0) g/dL Imaging Data Radiologist's impression: Chest X-Ray 09/16/18 15:46 CONCLUSION: No acute infiltrate or effusion. ECG Data EKG Prior to Arrival: No Attestation: I personally reviewed and interpreted this ECG as follows: Interpretation: EKG reveals a paced rhythm, there does appear to be a pacer spike in V4 and V5. Heart rate 70. Discharge Plan Discharge Disposition Patient Disposition: ED Admit(ED Internal Use Only) Discharge Condition Condition: Stable Discharge Order Discharge Orders: ED Use Only Admit Order (Routine); Ordered 09/16/18 Ordered By: Karl Multani Discharge Details Diagnosis: Acute kidney injury superimposed on chronic kidney disease, Acute hyperkalemia Physicians Team ED Provider: Karl Mlutani Primary Care Provider: UNKNOWN, Rxs /Orders / Referrals /Forms Prescriptions: No Action furosemide 40 mg Tablet 40 mg PO BID RF: 0 metolazone 2.5 mg Tablet 2.5 mg PO Q OTHER DAY RF: 0 atorvastatin 40 mg Tablet 40 mg PO DAILY RF: 0 tamsulosin 0.4 mg Capsule,Extended Release 24hr 0.4 mg PO DAILY RF: 0 folic acid 1 mg Tablet 1 mg PO DAILY RF: 0 magnesium 250 mg Tablet 500 mg PO DAILY RF: 0 pyridoxine (vitamin B6) [Vitamin B-6] 100 mg Tablet 100 mg PO DAILY RF: 0 metoprolol succinate [Toprol XL] 25 mg Tablet Extended Release 24 Hr 12.5 mg PO BID RF: 0 finasteride 5 mg Tablet 5 mg PO DAILY RF: 0 loratadine [Claritin] 10 mg Tablet 10 mg PO DAILY RF: 0 coenzyme Q10 [Co Q-10] 100 mg Capsule 100 mg PO DAILY RF: 0 insulin detemir U-100 [Levemir U-100 Insulin] 100 unit/mL Solution 8 unit SUB-Q QPM RF: 0 cholecalciferol (vitamin D3) [Vitamin D3] 1,000 unit Tablet 1,000 unit PO DAILY RF: 0 ferrous gluconate 236 mg (27 mg iron) Tablet 2 mg/kg PO TID RF: 0 lisinopril 10 mg Tablet 10 mg PO DAILY RF: 0 spironolactone 25 mg Tablet 25 mg PO DAILY RF: 0 Discharge Interventions Interventions: Vital Signs Last Done: 09/16/18 15:59 Status ED Status: Admitted Patient
--- NOTE | 2018-09-16 16:06 | XR ---
EXAM DATE: 09/16/2018 4:01 PM EST AGE/SEX: 88 years / Male INDICATIONS: Pleural effusion. CLINICAL DATA: This is the patient's initial encounter. Patient reports that signs and symptoms have been present for 1 day and indicates a pain score of 0/10. MEDICAL/SURGICAL HISTORY: . Diabetes. Hypertension. Afib. BPH. COPD. GERD. Malignant neuroendoc rine tumor. Skin cancer. Stroke. . Pacemaker. Cholecystectomy. Tonsillectomy. Bowel resection. Loop recorder. Aortic valve replacement. COMPARISON: [facility] [place], CHEST 1V SINGLE AP, 02/09/2018. . FINDINGS: A single AP view of the chest demonstrates the lungs to be symmetrically aerated without evidence of mass, infiltrate or effusion. The heart is at the upper limits of normal in terms of size. Stent-moun jann aortic valve observed. No pulmonary vascular engorgement appreciated.. Osseous structures are in tact. CONCLUSION: No acute infiltrate or effusion. Electronically signed by: Matt Castañeda MD Board Certified Radiologist 09/16/2018 4:04 PM EST
[2018-09-16 16:26] LABS: Baso # (Auto) 0.1 th/mm3 (0.0-0.2); Baso % (Auto) 2.4 % (0.0-2.0); Eos # (Auto) 0.4 th/mm3 (0.0-0.4); Eos % (Auto) 10.9 % (0.0-4.0); Hematocrit 30.2 % (39.0-51.0); Hemoglobin 10.1 gm/dL (13.0-17.0); Lymph # (Auto) 0.2 th/mm3 (1.0-4.8); Lymph % (Auto) 6.4 % (9.0-44.0); Mean Corpuscular HGB Conc 33.3 % (32.0-36.0); Mean Corpuscular Hemoglobin 33.4 pg (27.0-34.0); Mean Corpuscular Volume 100.2 fL (80.0-100.0); Mean Platelet Volume 9.2 fL (7.0-11.0); Mono # (Auto) 0.3 th/mm3 (0.0-0.9); Mono % (Auto) 9.4 % (0.0-8.0); Neut # (Auto) 2.6 th/mm3 (1.8-7.7); Neut % (Auto) 70.9 % (16.0-70.0); Platelet Count 115 th/mm3 (150-450); Red Blood Count 3.02 mil/mm3 (4.50-5.90); Red Cell Distribution Width 14.7 % (11.6-17.2); White Blood Count 3.6 th/mm3 (4.0-11.0)
[2018-09-16 16:42] LABS: Alanine Aminotransferase 35 U/L (12-78); Albumin 3.5 g/dL (3.4-5.0); Alkaline Phosphatase 250 U/L (45-117); Anion Gap 8 meq/L (5-15); Aspartate Aminotransferase 41 U/L (15-37); Blood Urea Nitrogen 130 mg/dL (7-18); Calcium 8.2 mg/dL (8.5-10.1); Chloride 105 meq/L (98-107); Glomerular Filtration Rate 10 mL/min (>89); Glucose,Random 127 mg/dL (74-106); Magnesium 3.7 mg/dL (1.5-2.5); Phosphorus 7.7 mg/dL (2.5-4.9); Sodium 132 meq/L (136-145); Total Protein 8.3 g/dL (6.4-8.2)
[2018-09-16 16:54] LABS: Potassium 6.6 meq/L (3.5-5.1)
[2018-09-16] MEDS ORDERED: Dextrose 50% in Water 50 ML Vial IV.PUSH ONE (16:59)
[2018-09-16] MEDS ORDERED: Bisacodyl 10 MG Supp RECTAL PRN (17:35)
[2018-09-16] MEDS ORDERED: Naloxone Inj 0.4 MG/ML Vial IV.PUSH PRN (17:35)
[2018-09-16] MEDS ORDERED: Acetaminophen 325 MG Tablet PO PRN (17:35)
[2018-09-16] MEDS ORDERED: Dextrose 50% in Water 50 ML Vial IV.PUSH PRN (17:35)
[2018-09-16] MEDS: Ferrous Sulfate 325 MG Tablet PO SCH (18:24)
[2018-09-16] MEDS ORDERED: Sodium Polystyrene Sulfonate Powder 15 GM Bottle PO ONE (18:30)
--- NOTE | 2018-09-16 18:31 | P.HPIM ---
History of Present Illness Primary Care Physician: UNKNOWN Chief Complaint: My doctor told me to come here. History of Present Illness: 88-year-old male with a history of chronic kidney disease stage IV, liver cirrhosis with ascites, insulin-dependent diabetes mellitus, hypertension, BPH was brought in by his son due to abnormal lab results obtained this Friday by his primary care physician. His lab was redrawn yesterday and now brought in today due to persistent elevated potassium and complains of generalized fatigue by the patient. Patient usually ambulates with a cane at baseline. He reports no complaint of chest pains, palpitations, muscle cramps, nor shortness of breath. He does report increased swelling of his abdomen. He was admitted back in April for ascites in which a paracentesis was obtained and a liver ultrasound showed likely liver cirrhosis. Back in May , his primary care physician placed him Aldactone due to lower extremity swelling along with hypokalemia. His potassium supplements were also eventually discontinued. He has also been seen Dr. Parrish, physical therapy assistant for his chronic kidney disease stage V. His biggest complaint is complaining of generalized itchiness which his son states was due to his kidney disease and has been giving him Benadryl as needed at home. Inpatient Certification Inpatient Certification: I certify that the inpatient services were ordered in accordance with Medicare regulations governing the order. This includes certification that hospital inpatient services are reasonable and necessary and in the case of services not specified as inpatient-only under 42 CFR 419.22(n), that they are appropriately provided as inpatient services in accordance to with the 2-midnight benchmark under 43 CFR 412.3(e) Estimated Total Length of Stay (Days): 3 Plans for Post Hospital Care: Not yet determined Review of Systems Constitutional: Reports as per HPI, Reports fatigue, Denies fever(s), Denies headache(s) and Reports malaise Eyes: Denies blurry vision, Denies change in vision and Denies eye pain Ears, Nose, Mouth, and Throat: Denies abnormal hearing, Denies headache(s), Denies mouth pain, Denies nasal congestion, Denies neck pain and Denies sore throat Cardiovascular: Denies chest pain, Reports pedal edema, Reports edema, Denies palpitations and Denies dyspnea Respiratory: Denies cough and Denies dyspnea Gastrointestinal: Denies abdominal pain, Denies constipation, Denies loose stools, Denies nausea and Denies vomiting Musculoskeletal: Denies back pain, Denies myalgias, Denies arthralgias, Denies neck pain and Denies numbness Skin/Breast: Reports dry skin, Reports pruritus, Denies new lesions, Denies rash and Reports sores Comments: from scratching Neurologic: Reports as per HPI, Denies abnormal hearing, Denies headache(s), Denies focal weakness, Denies memory loss, Denies numbness and Reports weakness Psychiatric: Denies anxiety, Denies depression and Denies memory loss Endocrine: Denies cold intolerance, Denies heat intolerance and Denies palpitations Hematologic/Lymphatic: Denies easy bleeding and Denies easy bruising PMFSH Social History Social History Substance History: No History of Abuse Second Hand Smoke Exposure: No Smoking Status: Former smoker Tobacco Type: Cigarettes Years Smoked: 17 How Often Do You Have a Drink Containing Alcohol: Never Hx Recent Travel: No Recent Travel in [facility] within the Last 8 Weeks: No Recent Out of Country Travel within the Last 8 Weeks: No Immunization History Tetanus Immunization: <5 Years Medications and Allergies Allergies Allergy/AdvReac Type Severity Reaction Status Date / Time niacin Allergy Unknown Nausea/Vomi Verified 02/04/18 21:42 ting sitagliptin AdvReac Severe STOMACH Verified 02/04/18 21:42 PAIN Home Medications Medication Instructions Recorded Confirmed Type atorvastatin 40 mg PO DAILY 02/04/18 09/16/18 History cholecalciferol (vitamin D3) 1,000 unit PO DAILY 02/04/18 09/16/18 History [Vitamin D3] coenzyme Q10 [Co Q-10] 100 mg PO DAILY 02/04/18 09/16/18 History ferrous gluconate 2 mg/kg PO TID 02/04/18 09/16/18 History finasteride 5 mg PO DAILY 02/04/18 09/16/18 History folic acid 1 mg PO DAILY 02/04/18 09/16/18 History furosemide 40 mg PO BID 02/04/18 09/16/18 History insulin detemir U-100 [Levemir 8 unit SUB-Q QPM 02/04/18 09/16/18 History U-100 Insulin] loratadine [Claritin] 10 mg PO DAILY 02/04/18 09/16/18 History magnesium 500 mg PO DAILY 02/04/18 09/16/18 History metolazone 2.5 mg PO Q OTHER DAY 02/04/18 09/16/18 History metoprolol succinate [Toprol XL] 12.5 mg PO BID 02/04/18 09/16/18 History pyridoxine (vitamin B6) [Vitamin 100 mg PO DAILY 02/04/18 09/16/18 History B-6] tamsulosin 0.4 mg PO DAILY 02/04/18 09/16/18 History lisinopril 10 mg PO DAILY 09/16/18 09/16/18 History spironolactone 25 mg PO DAILY 09/16/18 09/16/18 History Active Medications: Active Medications Acetaminophen (Tylenol) 650 mg PO Q4H PRN PRN Reason: PAIN 1-10 OR TEMP > 100.4 F Al Hydroxide/Mg Hydroxide (Milk Of Magnesia Liq) 30 ml PO Q12H PRN PRN Reason: Mild Constipation Atorvastatin Calcium (Lipitor) 40 mg PO DAILY [facility] Bisacodyl (Dulcolax Supp) 10 mg RECTAL DAILY PRN PRN Reason: SEVERE CONSITIPATION Dextrose (D50w Vial) 50 ml IV.PUSH UNSCH PRN PRN Reason: PER HYPOGLYCEMIA PROTOCOL Diphenhydramine HCl (Benadryl) 25 mg PO Q4H PRN PRN Reason: itchiness Finasteride (Proscar) 5 mg PO DAILY [facility] Folic Acid (Folic Acid) 1 mg PO DAILY [facility] Glucagon (Glucagon Inj) 1 mg OTHER UNSCH PRN PRN Reason: for Hypoglycemia Protocol Heparin Sodium (Porcine) (Heparin Inj) 5,000 units SQ Q12H [facility] Hydrocortisone Acetate (Hydrocortisone 1% Lotion) 1 applicatio TOPICAL BID [facility] Insulin Aspart (Novolog Insulin Correctional Sugar Inj) 0 unit SQ ACHS [facility]; Protocol Lactulose (Lactulose Liq) 30 ml PO DAILY PRN PRN Reason: SEVERE CONSITIPATION Metolazone (Zaroxolyn) 2.5 mg PO Q OTHER DAY [facility] Metoprolol Succinate (Toprol Xl) 12.5 mg PO BID [facility] Naloxone HCl (Narcan Inj) 0.4 mg IV.PUSH UNSCH PRN PRN Reason: SEE LABEL COMMENTS Non-Formulary Medication (Ferrous Gluconate [Ferrous Gluconate]) 2 mg/kg PO TID [facility] Ondansetron HCl (Zofran Inj) 4 mg IV.PUSH Q6H PRN PRN Reason: NAUSEA OR VOMITING Sennosides (Senokot) 17.2 mg PO Q12H PRN PRN Reason: Moderate Constipation Sodium Chloride (Ns Flush) 2 ml IV.FLUSH BID [facility] Sodium Chloride (Ns Flush) 2 ml IV.FLUSH UNSCH PRN PRN Reason: FLUSH AFTER USING IV ACCESS Sodium Polystyrene Sulfonate (Kayexalate Powder) 30 gm PO ONCE ONE Stop: 09/16/18 18:31 Tamsulosin HCl (Flomax) 0.4 mg PO DAILY [facility] Physical Exam Vital signs: Vital Signs 09/16/18 14:32 09/16/18 15:59 09/16/18 17:37 Temperature 97.3 F L Pulse Rate 70 69 69 Respiratory Rate 19 21 15 Blood Pressure 103/53 L 124/65 106/66 Pulse Oximetry 100 100 100 Intake & Output 09/15/18 09/16/18 09/16/18 18:59 06:59 18:59 Weight 74.389 kg Narrative: GENERAL: Well-nourished well-developed pleasant male laying in bed in no acute distress SKIN: Warm and dry. Multiple areas of macular papular lesions up in bilateral upper chest shoulders, back, dryness of the skin HEAD: Atraumatic. Normocephalic. EYES: Pupils equal and round. No scleral icterus. No injection or drainage. ENT: No nasal bleeding or discharge. Mucous membranes pink and moist. NECK: Trachea midline. No JVD. CARDIOVASCULAR: Regular rate and rhythm. RESPIRATORY: No accessory muscle use. Clear to auscultation. Breath sounds equal bilaterally. GASTROINTESTINAL: Abdomen soft, non-tender, distended with ascites with normoactive bowel sounds MUSCULOSKELETAL: Extremities without clubbing, cyanosis, trace to 1+ edema. NEUROLOGICAL: Awake and alert to person and place but not to time, did not know the year or the month, not aware of situation. No obvious cranial nerve deficits. Motor grossly within normal limits. Generalized weakness of the lower extremities, normal speech. PSYCHIATRIC: Appropriate mood and affect; insight and judgment normal. Results Labs CBC & Chem 7: 09/17/18 05:25 09/17/18 05:25 Imaging Impressions Chest X-Ray 09/16/18 15:46 CONCLUSION: No acute infiltrate or effusion. Caprini VTE Risk Assessment Caprini VTE Risk Assessment: Moderate/High Risk (score >= 2) Caprini Risk Assessment Model: Point Value = 1 Point Value = 2 Point Value = 3 Point Value = 5 Age 41-60 Minor surgery BMI > 25 kg/m2 Swollen legs Varicose veins or History of unexplained or recurrent spontaneous Oral contraceptives or hormone replacement Sepsis (< 1 month) Serious lung disease, including pneumonia (< 1 month) Abnormal pulmonary function Acute myocardial infarction Congestive heart failure (< 1 month) History of inflammatory bowel disease Medical patient at bed rest Age 61-74 Arthroscopic surgery Major open surgery (> 45 min) Laparoscopic surgery (> 45 min) Malignancy Confined to bed (> 72 hours) Immobilizing plaster cast Central venous access Age >= 75 History of VTE Family history of VTE Factor V Leiden Prothrombin [id number] Lupus anticoagulant Anticardiolipin antibodies Elevated serum homocysteine Heparin-induced thrombocytopenia Other congenital or acquired thrombophilia Stroke (< 1 month) Elective arthroplasty Hip, pelvis, or leg fracture Acute spinal cord injury (< 1 month) Prophylaxis Regimen: Total Risk Factor Score Risk Level Prophylaxis Regimen 0-1 Low Early ambulation 2 Moderate Order ONE of the following: *Sequential Compression Device (SCD) *Heparin 5000 units SQ BID 3-4 Higher Order ONE of the following medications: *Heparin 5000 units SQ TID *Enoxaparin/Lovenox 40 mg SQ daily (WT < 150 kg, CrCl > 30 mL/min) *Enoxaparin/Lovenox 30 mg SQ daily (WT < 150 kg, CrCl > 10-29 mL/min) *Enoxaparin/Lovenox 30 mg SQ BID (WT < 150 kg, CrCl > 30 mL/min) AND/OR *Sequential Compression Device (SCD) 5 or more Highest Order ONE of the following medications: *Heparin 5000 units SQ TID (Preferred with Epidurals) *Enoxaparin/Lovenox 40 mg SQ daily (WT < 150 kg, CrCl > 30 mL/min) *Enoxaparin/Lovenox 30 mg SQ daily (WT < 150 kg, CrCl > 10-29 mL/min) *Enoxaparin/Lovenox 30 mg SQ BID (WT < 150 kg, CrCl > 30 mL/min) AND *Sequential Compression Device (SCD) Assessment and Plan Plan 88-year-old white male with a history of chronic kidney disease stage IV, insulin-dependent diabetes mellitus, liver cirrhosis with ascites brought in by son secondary to abnormal outpatient potassium was 7 Severe hyperkalemia -patient was given D5W IV Lasix, insulin, sodium bicarb in the emergency room, will also give dose of Kayexalate. Will stop Aldactone and lisinopril, cardiac telemetry monitoring Acute kidney injury superimposed on chronic kidney disease stage IV-V-we will consult his physical therapy assistant, Zaroxolyn every other day will be restarted, will stop Aldactone, Lasix will be continued in the morning. Lisinopril on hold. Will avoid other nephrotoxins. Further recommendations per nephrology. History liver cirrhosis with ascitesobtain an ultrasound guided therapeutic paracentesis. Patient with previous workup back in April 2018. Insulin-dependent diabetes mellitus- will hold Levemir until blood sugar trends are reviewed, will cover with sliding scale insulin. History of atrial fibrillation, no anticoagulation due to previous GI bleed and falls, continue with Toprol Chronic anemia of chronic kidney diseaseprevious colonoscopy EGD and April showed hiatal hernia, colon polyps, diverticulosis and internal and external hemorrhoids. BPHresume Flomax DVT prophylaxisheparin Physical therapy evaluation Full code Discussed with son at bedside.
[2018-09-16 19:33] LABS: INR 1.1 Ratio; Prothrombin Time 10.7 sec (9.8-11.6)
[2018-09-16] MEDS: Heparin - SQ 10,000 UNITS/ML Vial SQ SCH (20:54)
[2018-09-16] MEDS: Insulin NovoLOG Aspart Correctional Sugar Inj SQ SCH (20:58)
[2018-09-16] MEDS: Hydrocortisone 1% Lotion 120 ML Bottle TOPICAL SCH (21:47)
[2018-09-17 06:13] LABS: Baso % (Auto) 1.4 % (0.0-2.0); Eos # (Auto) 0.3 th/mm3 (0.0-0.4); Eos % (Auto) 10.1 % (0.0-4.0); Hematocrit 26.8 % (39.0-51.0); Hemoglobin 9.2 gm/dL (13.0-17.0); Lymph # (Auto) 0.2 th/mm3 (1.0-4.8); Lymph % (Auto) 8.3 % (9.0-44.0); Mean Corpuscular HGB Conc 34.1 % (32.0-36.0); Mean Corpuscular Hemoglobin 33.8 pg (27.0-34.0); Mean Platelet Volume 9.3 fL (7.0-11.0); Mono # (Auto) 0.3 th/mm3 (0.0-0.9); Mono % (Auto) 9.5 % (0.0-8.0); Neut # (Auto) 2.1 th/mm3 (1.8-7.7); Neut % (Auto) 70.7 % (16.0-70.0); Platelet Count 96 th/mm3 (150-450); Red Blood Count 2.71 mil/mm3 (4.50-5.90); Red Cell Distribution Width 13.9 % (11.6-17.2)
[2018-09-17 06:36] LABS: Calcium 8.1 mg/dL (8.5-10.1); Potassium 6.3 meq/L (3.5-5.1)
[2018-09-17] MEDS: Heparin - SQ 10,000 UNITS/ML Vial SQ SCH (07:06)
[2018-09-17 08:10] LABS: Platelet Morphology Normal (Normal)
[2018-09-17] MEDS: Insulin NovoLOG Aspart Correctional Sugar Inj SQ SCH ×4 (08:11→22:15)
[2018-09-17] MEDS: Ferrous Sulfate 325 MG Tablet PO SCH ×2 (08:52→22:10)
[2018-09-17] MEDS: Furosemide 40 MG Tablet PO SCH ×2 (08:52→22:10)
[2018-09-17] MEDS: Finasteride 5 MG Tablet PO SCH (08:52)
[2018-09-17] MEDS: Folic Acid 1 MG Tablet PO SCH (08:52)
[2018-09-17] MEDS: Hydrocortisone 1% Lotion 120 ML Bottle TOPICAL SCH ×2 (08:53→22:12)
[2018-09-17] MEDS ORDERED: Sodium Polystyrene Sulfonate/Sorbitol Liq 15 GM/60 ML UDC PO ONE (09:00)
--- NOTE | 2018-09-17 11:11 | P.PNIM ---
Physical Exam Vital signs: Vital Signs 09/16/18 14:32 09/16/18 15:59 09/16/18 17:37 Temperature 97.3 F L Pulse Rate 70 69 69 Respiratory Rate 19 21 15 Blood Pressure 103/53 L 124/65 106/66 Pulse Oximetry 100 100 100 09/16/18 19:13 09/16/18 20:56 09/16/18 22:21 Temperature Pulse Rate 70 70 70 Respiratory Rate 16 18 18 Blood Pressure 109/57 L 109/66 110/60 Pulse Oximetry 100 96 99 09/17/18 01:17 09/17/18 06:54 09/17/18 10:02 Temperature Pulse Rate 74 70 69 Respiratory Rate 18 18 17 Blood Pressure 117/69 114/57 L 110/53 L Pulse Oximetry 99 97 Intake & Output 09/16/18 09/17/18 09/17/18 18:59 06:59 18:59 Weight 74.389 kg Narrative: GENERAL: Well-nourished well-developed pleasant male laying in bed in no acute distress CARDIOVASCULAR: Regular rate and rhythm. RESPIRATORY: No accessory muscle use. Clear to auscultation. Breath sounds equal bilaterally. GASTROINTESTINAL: Abdomen soft, non-tender, distended with ascites with normoactive bowel sounds MUSCULOSKELETAL: Extremities without clubbing, cyanosis, trace to 1+ edema. NEUROLOGICAL: Awake and alert to person and place but not to time, did not know the year or the month, not oriented entirely on situation. Generalized weakness of the lower extremities, normal speech. PSYCHIATRIC: Appropriate mood and affect; insight and judgment normal. Results Labs CBC & Chem 7: 09/17/18 05:25 09/17/18 05:25 Imaging Imaging: Impressions Chest X-Ray 09/16/18 15:46 CONCLUSION: No acute infiltrate or effusion. Assessment and Plan Plan 88-year-old white male with a history of chronic kidney disease stage IV, insulin-dependent diabetes mellitus, liver cirrhosis with ascites brought in by son secondary to abnormal outpatient potassium was 7 Severe hyperkalemia -overnight patient went from 6.6-6.3, give dose of Kayexalate along with continue Lasix today. 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 Lisinopril on hold. Will avoid other nephrotoxins. Further recommendations per nephrology. History liver cirrhosis with ascites ultrasound guided therapeutic paracentesis. Patient with previous workup back in April 2018. Insulin-dependent diabetes mellitus- will hold Levemir until blood sugar trends are reviewed, will cover with sliding scale insulin. History of atrial fibrillation, no anticoagulation due to previous GI bleed and falls, continue with Toprol Chronic anemia of chronic kidney diseaseprevious colonoscopy EGD and April showed hiatal hernia, colon polyps, diverticulosis and internal and external hemorrhoids. Consideration for Epogen if needed BPHresume Flomax DVT prophylaxisheparin Physical therapy
--- NOTE | 2018-09-17 12:02 | P.CONNP ---
<Mery Clark - Last Filed: 09/17/18 16:03> History of Present Illness Reason for Consult: CKD Primary Care Provider: UNKNOWN Chief Complaint: My doctor told me to come here. History of Present Illness: Patient is an 88-year-old male who came to the ED for abnormal lab results obtained by his PCP. PMH includes chronic kidney disease stage IV, liver cirrhosis with ascites, insulin-dependent diabetes mellitus, hypertension , BPH, COPD, Afib, s/p pacemaker. Patient's K on admission was 6.6. Patient was given D50, insulin, sodium bicarb , Kayexalate. Patient's K was rechecked today and was 6.3, was given Kayexalate. Patient denies chest pains, palpitations, muscle cramps, dizziness , shortness of breath. Patient reports increase in swelling in his abdomen. Patient was at [place] 04/2018 with ascites in which a paracentesis was done. Patient had a chest x-ray that showed no acute infiltrate or effusion. Patient was on spirolactone at home, prescribed by his PCP. Patient said he last took it yesterday. Patient is now on Lasix and Metolazone. Patient reports no trouble urinating. Patient has a wound on his scalp, he said he had a Mohs surgery done for skin cancer 06/2018, unsure which kind of skin cancer. Patient is an office patient of Dr. Escalera. His Creatinine 07/2018 was 3.53, BUN 82. Current Creatinine is 5.53 and BUN 126. Patient is a former tobacco smoker who denies alcohol or drug use. Patient has a family history of hypertension, kidney disease. . Review of Systems All other systems reviewed negative except as stated in HPI PMFSH - History History Provided By: Patient, Family Member - Medical History Medical History: Medical History (Last Reviewed 09/17/18 @ 08:52 by Ramiro Fiore) CKD (chronic kidney disease), stage IV Afib BPH (benign prostatic hyperplasia) COPD (chronic obstructive pulmonary disease) Diabetes GERD (gastroesophageal reflux disease) Hx of Moh's micrographic surgery for skin cancer Hx of malignant neuroendocrine tumor Hypertension Pacemaker Stroke - Surgical History Surgical History: Surgical History (Last Reviewed 09/17/18 @ 08:52 by Ramiro Fiore) H/O cataract removal with insertion of prosthetic lens H/O resection of small bowel History of cholecystectomy History of cholecystectomy History of loop recorder History of tonsillectomy Hx of colonoscopy S/p TAVR (transcatheter aortic valve replacement), bioprosthetic - Family History Family History: Family History (Last Updated 09/16/18 @ 18:18 by Sunny Jalloh MD) Mother Heart disease Father Stroke Other Family history of hypertension Kidney disease Patient's father is Patient's mother is - Tobacco History Second Hand Smoke Exposure: No Smoking Status: Former smoker Tobacco Type: Cigarettes Years Smoked: 17 - Alcohol History How Often Do You Have a Drink Containing Alcohol: Never - Substance Use History Substance History: No History of Abuse - Travel History History of Recent Travel: No Recent Travel in the [place] Within the Last 8 Weeks: No Recent Travel Out of the Country Within the Last 8 Weeks: No - Immunization History Tetanus Immunization: <5 Years Medications and Allergies Allergies Allergy/AdvReac Type Severity Reaction Status Date / Time niacin Allergy Unknown Nausea/Vomi Verified 02/04/18 21:42 ting sitagliptin AdvReac Severe STOMACH Verified 02/04/18 21:42 PAIN Home Medications Medication Instructions Recorded Confirmed Type atorvastatin 40 mg PO DAILY 02/04/18 09/16/18 History cholecalciferol (vitamin D3) 1,000 unit PO DAILY 02/04/18 09/16/18 History [Vitamin D3] coenzyme Q10 [Co Q-10] 100 mg PO DAILY 02/04/18 09/16/18 History ferrous gluconate 2 mg/kg PO TID 02/04/18 09/16/18 History finasteride 5 mg PO DAILY 02/04/18 09/16/18 History folic acid 1 mg PO DAILY 02/04/18 09/16/18 History furosemide 40 mg PO BID 02/04/18 09/16/18 History insulin detemir U-100 [Levemir 8 unit SUB-Q QPM 02/04/18 09/16/18 History U-100 Insulin] loratadine [Claritin] 10 mg PO DAILY 02/04/18 09/16/18 History magnesium 500 mg PO DAILY 02/04/18 09/16/18 History metolazone 2.5 mg PO Q OTHER DAY 02/04/18 09/16/18 History metoprolol succinate [Toprol XL] 12.5 mg PO BID 02/04/18 09/16/18 History pyridoxine (vitamin B6) [Vitamin 100 mg PO DAILY 02/04/18 09/16/18 History B-6] tamsulosin 0.4 mg PO DAILY 02/04/18 09/16/18 History lisinopril 10 mg PO DAILY 09/16/18 09/16/18 History spironolactone 25 mg PO DAILY 09/16/18 09/16/18 History Active Medications: Active Medications Acetaminophen (Tylenol) 650 mg PO Q4H PRN PRN Reason: PAIN 1-10 OR TEMP > 100.4 F Al Hydroxide/Mg Hydroxide (Milk Of Magnesia Liq) 30 ml PO Q12H PRN PRN Reason: Mild Constipation Atorvastatin Calcium (Lipitor) 40 mg PO DAILY [facility] Last Admin: 09/17/18 08:52 Dose: 40 mg Bisacodyl (Dulcolax Supp) 10 mg RECTAL DAILY PRN PRN Reason: SEVERE CONSITIPATION Dextrose (D50w Vial) 50 ml IV.PUSH UNSCH PRN PRN Reason: PER HYPOGLYCEMIA PROTOCOL Diphenhydramine HCl (Benadryl) 25 mg PO Q4H PRN PRN Reason: itchiness Last Admin: 09/16/18 23:39 Dose: 25 mg Ferrous Sulfate (Ferosul) 325 mg PO BID [facility] Last Admin: 09/17/18 08:52 Dose: 325 mg Finasteride (Proscar) 5 mg PO DAILY [facility] Last Admin: 09/17/18 08:52 Dose: 5 mg Folic Acid (Folic Acid) 1 mg PO DAILY [facility] Last Admin: 09/17/18 08:52 Dose: 1 mg Furosemide (Lasix) 40 mg PO BID [facility] Last Admin: 09/17/18 08:52 Dose: 40 mg Glucagon (Glucagon Inj) 1 mg OTHER UNSCH PRN PRN Reason: for Hypoglycemia Protocol Heparin Sodium (Porcine) (Heparin Inj) 5,000 units SQ Q12H [facility] Last Admin: 09/17/18 07:06 Dose: Not Given Hydrocortisone Acetate (Hydrocortisone 1% Lotion) 1 applicatio TOPICAL BID [facility] Last Admin: 09/17/18 08:53 Dose: Not Given Insulin Aspart (Novolog Insulin Correctional Sugar Inj) 0 unit SQ ACHS [facility]; Protocol Last Admin: 09/17/18 08:11 Dose: Not Given Lactulose (Lactulose Liq) 30 ml PO DAILY PRN PRN Reason: SEVERE CONSITIPATION Metolazone (Zaroxolyn) 2.5 mg PO EVERY OTHER DAY [facility] Last Admin: 09/17/18 08:52 Dose: 2.5 mg Metoprolol Succinate (Toprol Xl) 12.5 mg PO BID [facility] Last Admin: 09/17/18 08:52 Dose: 12.5 mg Miscellaneous (Pill Splitter) 1 each OTHER UNSCH PRN PRN Reason: SEE LABEL COMMENTS Naloxone HCl (Narcan Inj) 0.4 mg IV.PUSH UNSCH PRN PRN Reason: SEE LABEL COMMENTS Ondansetron HCl (Zofran Inj) 4 mg IV.PUSH Q6H PRN PRN Reason: NAUSEA OR VOMITING Sennosides (Senokot) 17.2 mg PO Q12H PRN PRN Reason: Moderate Constipation Sodium Chloride (Ns Flush) 2 ml IV.FLUSH BID [facility] Last Admin: 09/17/18 08:53 Dose: 2 ml Sodium Chloride (Ns Flush) 2 ml IV.FLUSH UNSCH PRN PRN Reason: FLUSH AFTER USING IV ACCESS Tamsulosin HCl (Flomax) 0.4 mg PO DAILY [facility] Last Admin: 09/17/18 08:52 Dose: 0.4 mg Exam Vital signs: Vital Signs 09/16/18 14:32 09/16/18 15:59 09/16/18 17:37 Temperature 97.3 F L Pulse Rate 70 69 69 Respiratory Rate 19 21 15 Blood Pressure 103/53 L 124/65 106/66 Pulse Oximetry 100 100 100 09/16/18 19:13 09/16/18 20:56 09/16/18 22:21 Temperature Pulse Rate 70 70 70 Respiratory Rate 16 18 18 Blood Pressure 109/57 L 109/66 110/60 Pulse Oximetry 100 96 99 09/17/18 01:17 09/17/18 06:54 09/17/18 10:02 Temperature Pulse Rate 74 70 69 Respiratory Rate 18 18 17 Blood Pressure 117/69 114/57 L 110/53 L Pulse Oximetry 99 97 Intake & Output 09/16/18 09/17/18 09/17/18 18:59 06:59 18:59 Weight 74.389 kg - Constitutional no acute distress - Routine HEENT Exam Head: Present: normocephalic Eye: Present: EOMI - Routine Neck Exam Present: trachea midline. Absent: tracheal deviation - Routine Respiratory Exam Absent: accessory muscle use, decreased breath sounds - Routine Cardiovascular Exam Present: S1, S2. Absent: JVD - Routine Abdominal Exam Present: normoactive bowel sounds, distended, firm - Routine Extremities Exam Absent: edema - Routine Skin Exam Present: erythema, dry, wounds - Routine Neurological Exam Present: alert. Absent: oriented X3 Results - Lab Results 09/17/18 05:25 09/17/18 05:25 Most recent lab results Calcium 8.1 mg/dL (8.5-10.1) L 09/17/18 05:25 Phosphorus 7.7 mg/dL (2.5-4.9) H 09/16/18 15:54 Magnesium 3.7 mg/dL (1.5-2.5) H 09/16/18 15:54 Assessment and Plan - Assessment (1) CKD (chronic kidney disease) stage 4, GFR 15-29 ml/min Code(s): N18.4 - Chronic kidney disease, stage 4 (severe) Status: Acute Plan: His Creatinine 07/2018 was 3.53, BUN 82. Current Creatinine is 5.53 and BUN 126. Has slightly improved since admission. Ordered a UA and renal ultrasound. Continue albumin. Started on sodium bicarb. If renal function does not improve may need to place consult to palliative care. Monitor fluid and electrolytes. Avoid nephrotoxic agents. (2) Ascites Code(s): R18.8 - Other ascites Status: Acute Plan: Patient getting paracentesis today. (3) Hyperkalemia Code(s): E87.5 - Hyperkalemia Status: Acute Plan: Patient's K on admission was 6.6. Patient was given D50, insulin, sodium bicarb , Kayexalate. Patient's K was rechecked today and was 6.3, was given Kayexalate. Will recheck K this afternoon. Do not restart Aldactone. (4) Hypertension Code(s): I10 - Essential (primary) hypertension Status: Acute Plan: Monitor BP, patient on Metoprolol. (5) Diabetes Code(s): E11.9 - Type 2 diabetes mellitus without complications Status: Acute Plan: Insulin coverage to maintain blood glucose levels between 140 and 180 while hospitalized. (6) BPH (benign prostatic hyperplasia) Code(s): N40.0 - Benign prostatic hyperplasia without lower urinary tract symptoms Status: Chronic Plan: On Tamsulosin. <Keith Parrish - Last Filed: 09/18/18 14:43> History of Present Illness Primary Care Provider: UNKNOWN [facility] - Medical History Medical History: Medical History (Last Reviewed 09/17/18 @ 08:52 by Ramiro Fiore) CKD (chronic kidney disease), stage IV Afib BPH (benign prostatic hyperplasia) COPD (chronic obstructive pulmonary disease) Diabetes GERD (gastroesophageal reflux disease) Hx of Moh's micrographic surgery for skin cancer Hx of malignant neuroendocrine tumor Hypertension Pacemaker Stroke - Surgical History Surgical History: Surgical History (Last Reviewed 09/17/18 @ 08:52 by Ramiro Fiore) H/O cataract removal with insertion of prosthetic lens H/O resection of small bowel History of cholecystectomy History of cholecystectomy History of loop recorder History of tonsillectomy Hx of colonoscopy S/p TAVR (transcatheter aortic valve replacement), bioprosthetic - Family History Family History: Family History (Last Updated 09/16/18 @ 18:18 by Sunny Jalloh MD) Mother Heart disease Father Stroke Other Family history of hypertension Kidney disease Patient's father is Patient's mother is Medications and Allergies Active Medications: Active Medications Acetaminophen (Tylenol) 650 mg PO Q4H PRN PRN Reason: PAIN 1-10 OR TEMP > 100.4 F Al Hydroxide/Mg Hydroxide (Milk Of Gabriel Liq) 30 ml PO Q12H PRN PRN Reason: Mild Constipation Atorvastatin Calcium (Lipitor) 40 mg PO DAILY [facility] Last Admin: 09/18/18 09:54 Dose: 40 mg Bisacodyl (Dulcolax Supp) 10 mg RECTAL DAILY PRN PRN Reason: SEVERE CONSITIPATION Dextrose (D50w Vial) 50 ml IV.PUSH UNSCH PRN PRN Reason: PER HYPOGLYCEMIA PROTOCOL Diphenhydramine HCl (Benadryl) 25 mg PO Q4H PRN PRN Reason: itchiness Last Admin: 09/16/18 23:39 Dose: 25 mg Ferrous Sulfate (Ferosul) 325 mg PO BID [facility] Last Admin: 09/18/18 09:53 Dose: 325 mg Finasteride (Proscar) 5 mg PO DAILY [facility] Last Admin: 09/18/18 09:53 Dose: 5 mg Folic Acid (Folic Acid) 1 mg PO DAILY [facility] Last Admin: 09/18/18 09:53 Dose: 1 mg Furosemide (Lasix) 40 mg PO BID [facility] Last Admin: 09/18/18 09:53 Dose: 40 mg Glucagon (Glucagon Inj) 1 mg OTHER UNSCH PRN PRN Reason: for Hypoglycemia Protocol Heparin Sodium (Porcine) (Heparin Inj) 5,000 units SQ Q12H [facility] Last Admin: 09/17/18 07:06 Dose: Not Given Hydrocortisone Acetate (Hydrocortisone 1% Lotion) 1 applicatio TOPICAL BID [facility] Last Admin: 09/18/18 09:56 Dose: 1 applicatio Sodium Bicarbonate 75 meq/ (Dextrose/Sodium Chloride) 1,075 mls @ 42 mls/hr IV.CONT .Q24H [facility] Last Admin: 09/17/18 20:59 Dose: 42 mls/hr Insulin Aspart (Novolog Insulin Correctional Sugar Inj) 0 unit SQ ACHS [facility]; Protocol Last Admin: 09/18/18 12:46 Dose: 1 unit Lactulose (Lactulose Liq) 30 ml PO DAILY PRN PRN Reason: SEVERE CONSITIPATION Metolazone (Zaroxolyn) 2.5 mg PO EVERY OTHER DAY [facility] Last Admin: 09/17/18 08:52 Dose: 2.5 mg Metoprolol Succinate (Toprol Xl) 12.5 mg PO BID [facility] Last Admin: 09/18/18 09:53 Dose: 12.5 mg Miscellaneous (Pill Splitter) 1 each OTHER UNSCH PRN PRN Reason: SEE LABEL COMMENTS Naloxone HCl (Narcan Inj) 0.4 mg IV.PUSH UNSCH PRN PRN Reason: SEE LABEL COMMENTS Ondansetron HCl (Zofran Inj) 4 mg IV.PUSH Q6H PRN PRN Reason: NAUSEA OR VOMITING Sennosides (Senokot) 17.2 mg PO Q12H PRN PRN Reason: Moderate Constipation Sodium Chloride (Ns Flush) 2 ml IV.FLUSH BID [facility] Last Admin: 09/18/18 09:56 Dose: Not Given Sodium Chloride (Ns Flush) 2 ml IV.FLUSH UNSCH PRN PRN Reason: FLUSH AFTER USING IV ACCESS Tamsulosin HCl (Flomax) 0.4 mg PO DAILY [facility] Last Admin: 09/18/18 09:54 Dose: 0.4 mg Exam Vital signs: Vital Signs 09/17/18 14:47 09/17/18 16:00 09/17/18 20:25 Temperature 97.3 F L 97.4 F L Pulse Rate 69 69 69 Respiratory Rate 18 14 20 Blood Pressure 103/52 L 134/59 L 103/58 L Pulse Oximetry 99 100 100 09/18/18 00:30 09/18/18 04:30 09/18/18 08:00 Temperature 97.2 F L 97.7 F 98.0 F Pulse Rate 70 70 64 Respiratory Rate 20 20 16 Blood Pressure 115/60 97/56 L 106/53 L Pulse Oximetry 100 97 99 09/18/18 12:00 Temperature 97.9 F Pulse Rate 69 Respiratory Rate 18 Blood Pressure 100/55 L Pulse Oximetry 100 Intake & Output 09/17/18 09/18/18 09/18/18 18:59 06:59 18:59 Intake Total 200 / 200 Balance 200 / 200 Weight 64.2 kg Intake: IV 200 / 200 Flexbumin 25% Inj 200 ML @ 60 200 / 200 mls/hr IV.SIG ONCE ONE Rx#: [id number] Results - Lab Results 09/18/18 10:38 09/18/18 10:38 Most recent lab results Calcium 8.4 mg/dL (8.5-10.1) L 09/18/18 10:38 Phosphorus 7.7 mg/dL (2.5-4.9) H 09/16/18 15:54 Magnesium 3.7 mg/dL (1.5-2.5) H 09/16/18 15:54 Assessment and Plan - Assessment (1) CKD (chronic kidney disease) stage 4, GFR 15-29 ml/min Code(s): N18.4 - Chronic kidney disease, stage 4 (severe) Status: Acute (2) Ascites Code(s): R18.8 - Other ascites Status: Acute (3) Hyperkalemia Code(s): E87.5 - Hyperkalemia Status: Acute (4) Hypertension Code(s): I10 - Essential (primary) hypertension Status: Acute (5) Diabetes Code(s): E11.9 - Type 2 diabetes mellitus without complications Status: Acute (6) BPH (benign prostatic hyperplasia) Code(s): N40.0 - Benign prostatic hyperplasia without lower urinary tract symptoms Status: Chronic - Attending Attestation patient was seen and examined on 09/17/18. Agree with above assessment and plan. I have started bicarbonate drip, mainly because of hyperkalemia. Poor candidate for renal replacement therapy because of advanced age and multiple comorbidities. The patient realizes this. Suspend Spironolactone.
--- NOTE | 2018-09-17 13:28 | US ---
EXAM DATE: 09/17/2018 1:23 PM EST AGE/SEX: 88 years / Male INDICATIONS: Increased Bun and Creatinine. CLINICAL DATA: This is the patient's initial encounter. Patient reports that signs and symptoms have been present for 1 day and indicates a pain score of 1/10. MEDICAL/SURGICAL HISTORY: . Small bowel resection due to tumor. Cataract removal with insertio n of prosthetic lens. Colonoscopy. TAVR (transcatheter aortic valve replacement). Cholecystectomy. Tonsillectomy. Pacemaker. COMPARISON: [facility] [place], [place] ABDOMEN LIVER, 05/15/2018. [facility] [place], [place] KIDNEY/RENAL/BLADDER, 05/12/2018. . MEASUREMENTS: Right Kidney:__10.8 x 4.5 x 5.5 cm Left Kidney:__9.1 x 3.9 x 4.9 cm FINDINGS: Right Kidney: 6.5 x 6.2 x 5.5 cm simple cyst upper pole. Left Kidney: Normal echogenicity and cortical thickness. No mass or hydronephrosis. Bladder: Within normal limits given the degree of distension. Other: Ascites is noted. CONCLUSION: 1. Right renal cyst. 2. Ascites. Electronically signed by: Hipolito Alcantar MD Board Certified Radiologist 09/17/2018 1:27 PM EST
[2018-09-17] MEDS ORDERED: Albumin Human 25% Inj 200 ML IV.SIG ONE (15:00)
--- NOTE | 2018-09-17 15:07 | US ---
EXAM DATE: 09/17/2018 2:35 PM EST AGE/SEX: 88 years / Male INDICATIONS: Ascites. CLINICAL DATA: This is the patient's subsequent encounter. Patient reports that signs and symptoms h ave been present for 4 - 6 months and indicates a pain score of 0/10. MEDICAL/SURGICAL HISTORY: Diabetes. Chronic obstructive pulmonary disease. Gastroesophageal r eflux disease. BPH. Atrial fibrillation. CKD, stage IV. Hypertension. Stroke. Malignant neuroen docrine tumor. Skin cancer. Pacemaker. Cholecystectomy. Tonsillectomy. Small bowel resection due to tumor. Cataract removal with insertion of prosthetic lens. Colonoscopy. TAVR (transcatheter ao rtic valve replacement). COMPARISON: [facility] [place], KIDNEY/RENAL/BLADDER, 09/17/2018. . FLUID: Total volume of 7900 cc of . Clear, Nirmala fluid was removed. Fluid was discarded. Paracentesis was th erapeutic only. . . TECHNIQUE: Ultrasound guidance for abdominal paracentesis. Paracentesis. The risks, benefits, and alternatives to ultrasound guided paracentesis were explained to the patient in detail including the risk of bleeding and infection. Written and verbal informed consent was obt ained. With the patient on the ultrasound table, ultrasound imaging was used to select the most appropriate approach for paracentesis. Overlying skin was prepped and draped in the usual sterile fashion and wi th a local anesthetic, a dermatotomy was made with an 11 blade scalpel. A 6 [place] [id number] ca theter was introduced into the peritoneal cavity and fluid was collected. Post procedure scanning reveals no hematoma or other complication. The patient tolerated the procedu re well and left the ultrasound suite in stable condition. FINDINGS: Adequate fluid for paracentesis. CONCLUSION: 1. Uncomplicated paracentesis. Electronically signed by: Matt Castañeda MD Board Certified Radiologist 09/17/2018 3:06 PM EST
--- NOTE | 2018-09-17 17:24 | ECG ---
Date Performed: 09/16/2018 Time Performed: 17:04:41 PTAGE: 88 years EKG: ELECTRONIC VENTRICULAR PACEMAKER ABNORMAL RHYTHM ECG PREVIOUS TRACING : 05/12/2018 14.43 Since the previous tracing, no significant change noted DOCTOR: Cedric Holly Interpretating Date/Time 09/17/2018 17:23:45
[2018-09-17] MEDS: Sodium Bicarbonate 8.4% Inj 75 MEQ in Dextrose 5%/NaCl 0.45% Inj 1,000 ML IV.CONT SCH (20:59)
[2018-09-18] MEDS: Furosemide 40 MG Tablet PO SCH ×2 (09:53→22:22)
[2018-09-18] MEDS: Folic Acid 1 MG Tablet PO SCH (09:53)
[2018-09-18] MEDS: Ferrous Sulfate 325 MG Tablet PO SCH ×2 (09:53→22:21)
[2018-09-18] MEDS: Finasteride 5 MG Tablet PO SCH (09:53)
[2018-09-18] MEDS: Hydrocortisone 1% Lotion 120 ML Bottle TOPICAL SCH ×2 (09:56→22:21)
[2018-09-18 11:24] LABS: Baso # (Auto) 0.1 th/mm3 (0.0-0.2); Baso % (Auto) 1.7 % (0.0-2.0); Eos # (Auto) 0.3 th/mm3 (0.0-0.4); Eos % (Auto) 10.4 % (0.0-4.0); Hematocrit 28.2 % (39.0-51.0); Hemoglobin 9.7 gm/dL (13.0-17.0); Lymph # (Auto) 0.2 th/mm3 (1.0-4.8); Lymph % (Auto) 6.6 % (9.0-44.0); Mean Corpuscular HGB Conc 34.3 % (32.0-36.0); Mean Corpuscular Hemoglobin 33.9 pg (27.0-34.0); Mean Corpuscular Volume 98.8 fL (80.0-100.0); Mean Platelet Volume 9.2 fL (7.0-11.0); Mono # (Auto) 0.3 th/mm3 (0.0-0.9); Mono % (Auto) 11.8 % (0.0-8.0); Neut % (Auto) 69.5 % (16.0-70.0); Platelet Count 97 th/mm3 (150-450); Red Blood Count 2.85 mil/mm3 (4.50-5.90); Red Cell Distribution Width 13.9 % (11.6-17.2); White Blood Count 2.9 th/mm3 (4.0-11.0)
[2018-09-18 12:17] LABS: Calcium 8.4 mg/dL (8.5-10.1); Carbon Dioxide 23.8 meq/L (21.0-32.0); Potassium 5.1 meq/L (3.5-5.1)
--- NOTE | 2018-09-18 12:32 | P.PNIM ---
Subjective Interval history: No new complaints with the patient today. Potassium level has trended back towards within normal limits. Currently potassium level is 5.1. Today he also has a significant drop in his creatinine level compared to previous decrease. That may be correlated with paracentesis which could have been contributory to his worsening renal function and thus his hyperkalemia. Physical Exam Vital signs: Vital Signs 09/17/18 13:11 09/17/18 14:30 09/17/18 14:47 Temperature 98.3 F 98.7 F Pulse Rate 70 68 69 Respiratory Rate 18 18 18 Blood Pressure 101/58 L 79/52 L 103/52 L Pulse Oximetry 100 100 99 09/17/18 16:00 09/17/18 20:25 09/18/18 00:30 Temperature 97.3 F L 97.4 F L 97.2 F L Pulse Rate 69 69 70 Respiratory Rate 14 20 20 Blood Pressure 134/59 L 103/58 L 115/60 Pulse Oximetry 100 100 100 09/18/18 04:30 09/18/18 08:00 Temperature 97.7 F 98.0 F Pulse Rate 70 64 Respiratory Rate 20 16 Blood Pressure 97/56 L 106/53 L Pulse Oximetry 97 99 Intake & Output 09/17/18 09/18/18 09/18/18 18:59 06:59 18:59 Intake Total 200 / 200 Balance 200 / 200 Weight 64.2 kg Intake: IV 200 / 200 Flexbumin 25% Inj 200 ML @ 60 200 / 200 mls/hr IV.SIG ONCE ONE Rx#: [id number] Narrative: GENERAL: NAD, A&Ox3 HEAD: Normocephalic. NECK: Supple, trachea midline. No lymphadenopathy. EYES: No scleral icterus. No injection or drainage. CARDIOVASCULAR: Regular rate and rhythm without murmurs, gallops, or rubs. RESPIRATORY: Breath sounds equal bilaterally. No accessory muscle use. GASTROINTESTINAL: Abdomen soft, non-tender, nondistended. MUSCULOSKELETAL: No cyanosis, or edema. SKIN: Warm and dry. NEURO: No focal neurological deficits. Results Labs CBC & Chem 7: 09/18/18 10:38 09/18/18 10:38 Imaging Imaging: Impressions Abdomen/Bladder Ultrasound 09/17/18 00:00 CONCLUSION: 1. Right renal cyst. 2. Ascites. Paracentesis Ultrasound 02/28/19 00:00 CONCLUSION: 1. Uncomplicated paracentesis. Assessment and Plan (1) CKD (chronic kidney disease) stage 4, GFR 15-29 ml/min: Code(s): N18.4 - Chronic kidney disease, stage 4 (severe) Status: Acute (2) Ascites: Code(s): R18.8 - Other ascites Status: Acute (3) Hyperkalemia: Code(s): E87.5 - Hyperkalemia Status: Acute (4) Hypertension: Code(s): I10 - Essential (primary) hypertension Status: Acute (5) Diabetes: Code(s): E11.9 - Type 2 diabetes mellitus without complications Status: Acute (6) BPH (benign prostatic hyperplasia): Code(s): N40.0 - Benign prostatic hyperplasia without lower urinary tract symptoms Status: Chronic Plan 88-year-old white male with a history of chronic kidney disease stage IV, insulin-dependent diabetes mellitus, liver cirrhosis with ascites brought in by son secondary to abnormal outpatient potassium was 7 Severe hyperkalemia Continue monitoring potassium levels Continue Kayexalate as needed Aldactone and lisinopril on hold Follow on telemetry Acute kidney disease on chronic kidney disease stage IV Nephrology following Signs of improvement today status post paracentesis Continue diuresis Liver cirrhosis Ascites Status post paracentesis This is likely contributory to patient's chronic kidney disease and subsequent hyperkalemia Diabetes mellitus type 2 Follow blood sugars Insulin sliding scale Diabetic diet History of atrial fibrillation Not a candidate for GI prophylaxis Chronic anemia Follow hemoglobin Benign prostatic hypertrophy Flomax DVT prophylaxis Heparin _ (1) Ascites Qualifiers: Ascites type: (2) Hypertension Qualifiers: Hypertension type: (3) Diabetes Qualifiers: Diabetes mellitus type: Diabetes mellitus automatic operator insulin use: Diabetes mellitus complication status: Diabetes mellitus complication detail: Diabetic retinopathy severity: Proliferative retinopathy type: Diabetes mellitus macular edema: Laterality: Chronic kidney disease stage: (4) BPH (benign prostatic hyperplasia) Qualifiers: Lower urinary tract symptom presence: Lower urinary tract symptom detail:
--- NOTE | 2018-09-18 12:32 | P.PNNP ---
Subjective Interval history: Patient was seen, no distress, wants to go home. Patient states he feels much better today. Renal function has improved, Creatinine is 4.65 today. K improved, is 5.1. <Mery Clark - Last Filed: 09/18/18 16:09> Physical Exam Vital signs: Vital Signs 09/17/18 13:11 09/17/18 14:30 09/17/18 14:47 Temperature 98.3 F 98.7 F Pulse Rate 70 68 69 Respiratory Rate 18 18 18 Blood Pressure 101/58 L 79/52 L 103/52 L Pulse Oximetry 100 100 99 09/17/18 16:00 09/17/18 20:25 09/18/18 00:30 Temperature 97.3 F L 97.4 F L 97.2 F L Pulse Rate 69 69 70 Respiratory Rate 14 20 20 Blood Pressure 134/59 L 103/58 L 115/60 Pulse Oximetry 100 100 100 09/18/18 04:30 09/18/18 08:00 Temperature 97.7 F 98.0 F Pulse Rate 70 64 Respiratory Rate 20 16 Blood Pressure 97/56 L 106/53 L Pulse Oximetry 97 99 Intake & Output 09/17/18 09/18/18 09/18/18 18:59 06:59 18:59 Intake Total 200 / 200 Balance 200 / 200 Weight 64.2 kg Intake: IV 200 / 200 Flexbumin 25% Inj 200 ML @ 60 200 / 200 mls/hr IV.SIG ONCE ONE Rx#: [id number] - Constitutional no acute distress - Routine HEENT Exam Head: Present: normocephalic Eye: Present: EOMI ENT: Present: mucous membranes moist - Routine Neck Exam Present: trachea midline. Absent: JVD, tracheal deviation - Routine Cardiovascular Exam Present: S1, S2 - Routine Abdominal Exam Present: soft, normoactive bowel sounds - Routine Extremities Exam Absent: edema - Routine Skin Exam Present: dry, wounds - Routine Neurological Exam Present: alert - Routine Psychiatric Exam Present: normal affect <Mery Clark - Last Filed: 09/18/18 16:09> Vital signs: Vital Signs 09/17/18 20:25 09/18/18 00:30 09/18/18 04:30 Temperature 97.4 F L 97.2 F L 97.7 F Pulse Rate 69 70 70 Respiratory Rate 20 20 20 Blood Pressure 103/58 L 115/60 97/56 L Pulse Oximetry 100 100 97 09/18/18 08:00 09/18/18 12:00 09/18/18 16:00 Temperature 98.0 F 97.9 F 97.6 F Pulse Rate 64 69 63 Respiratory Rate 16 18 16 Blood Pressure 106/53 L 100/55 L 110/53 L Pulse Oximetry 99 100 100 Intake & Output 09/18/18 09/18/18 09/19/18 06:59 18:59 06:59 Weight 64.2 kg <Keith Parrish - Last Filed: 09/18/18 19:21> Assessment and Plan - Assessment (1) CKD (chronic kidney disease) stage 4, GFR 15-29 ml/min Code(s): N18.4 - Chronic kidney disease, stage 4 (severe) Status: Acute Plan: Patient's renal function has improved today. Creatinine is 4.65. Patient is making urine. Patient stated he will follow up in the office with Dr. Parrish. Poor candidate for renal replacement therapy because of advanced age and multiple comorbidities, this was discussed with the patient. Can be discharged from a renal standpoint. (2) Ascites Code(s): R18.8 - Other ascites Status: Acute Plan: s/p paracentesis, 7.9 L removed yesterday. (3) Hyperkalemia Code(s): E87.5 - Hyperkalemia Status: Acute Plan: Has improved, K is 5.1. Do not restart Aldactone. (4) Hypertension Code(s): I10 - Essential (primary) hypertension Status: Acute Plan: Monitor BP, patient on Metoprolol. (5) Diabetes Code(s): E11.9 - Type 2 diabetes mellitus without complications Status: Acute Plan: Insulin coverage to maintain blood glucose levels between 140 and 180 while hospitalized. (6) BPH (benign prostatic hyperplasia) Code(s): N40.0 - Benign prostatic hyperplasia without lower urinary tract symptoms Status: Chronic Plan: On Tamsulosin. <Mery Clark - Last Filed: 09/18/18 16:09> - Assessment (1) CKD (chronic kidney disease) stage 4, GFR 15-29 ml/min Code(s): N18.4 - Chronic kidney disease, stage 4 (severe) Status: Acute (2) Ascites Code(s): R18.8 - Other ascites Status: Acute (3) Hyperkalemia Code(s): E87.5 - Hyperkalemia Status: Acute (4) Hypertension Code(s): I10 - Essential (primary) hypertension Status: Acute (5) Diabetes Code(s): E11.9 - Type 2 diabetes mellitus without complications Status: Acute (6) BPH (benign prostatic hyperplasia) Code(s): N40.0 - Benign prostatic hyperplasia without lower urinary tract symptoms Status: Chronic - Attending Attestation patient was seen and examined. Agree with above assessment and plan. IVF can be discontinued. He can be discharged from renal standpoint. <Keith Parrish - Last Filed: 09/18/18 19:21>
[2018-09-18] MEDS: Insulin NovoLOG Aspart Correctional Sugar Inj SQ SCH ×4 (12:35→22:22)
--- NOTE | 2018-09-18 17:09 | P.DS ---
DS: Providers Date of admission: 09/16/18 17:51 Primary care physician: UNKNOWN Consults: 09/16/18 17:40 Consult to Nephrology Routine Consulting Provider: Keith Parrish Does the patient have a Risk Control Manager who follows them?: Yes Preferred Nephrology Radiator Mechanic:: Keith Parrish Reason for Consultation: hyperkalemia, MILLI on CKD stage V Notified:: Service Spoke with:: chitra Date Notified:: 09/16/18 Time Notified:: 18:31 Ordering Provider: KANDIS 09/16/18 18:03 HUB Only Consult Order Routine Consulting Provider: Darin Webster 09/18/18 15:32 HUB Only Consult Order Routine Consulting Provider: Darin Webster Brief History from admission: 88-year-old male with a history of chronic kidney disease stage IV, liver cirrhosis with ascites, insulin-dependent diabetes mellitus, hypertension, BPH was brought in by his son due to abnormal lab results obtained this Friday by his primary care physician. His lab was redrawn yesterday and now brought in today due to persistent elevated potassium and complains of generalized fatigue by the patient. Patient usually ambulates with a cane at baseline. He reports no complaint of chest pains, palpitations, muscle cramps, nor shortness of breath. He does report increased swelling of his abdomen. He was admitted back in April for ascites in which a paracentesis was obtained and a liver ultrasound showed likely liver cirrhosis. Back in May , his primary care physician placed him Aldactone due to lower extremity swelling along with hypokalemia. His potassium supplements were also eventually discontinued. He has also been seen Dr. Parrish, records manager for his chronic kidney disease stage V. His biggest complaint is complaining of generalized itchiness which his son states was due to his kidney disease and has been giving him Benadryl as needed at home. DS: Diagnosis Discharge Diagnosis (1) CKD (chronic kidney disease) stage 4, GFR 15-29 ml/min: Status: Acute (2) Ascites: Status: Acute (3) Hyperkalemia: Status: Acute (4) Hypertension: Status: Acute (5) Diabetes: Status: Acute (6) BPH (benign prostatic hyperplasia): Status: Chronic DS: Summary Mr. Miller is an 88-year-old male. He was sent by his outpatient physician here secondary to a potassium level which was 7.0. This was correlated with acute renal failure on top of stage IV chronic kidney disease. Patient has cirrhosis at baseline and had ascites present at time of admit also. Ascites has been draining after having the ascites drained his renal function is showing more significant improvement through time. Potassium levels have stabilized and normalized. Nephrology has cleared this patient. This patient is medically stable and cleared for discharge home this afternoon. Time Spent with Patient Total time spent providing and/or coordinating discharge services: Less than 30 minutes Results Labs on day of discharge: Labs from last 24 hours 09/18/18 09/18/18 09/18/18 11:42 10:38 10:38 WBC 2.9 L RBC 2.85 L Hgb 9.7 L Hct 28.2 L MCV 98.8 MCH 33.9 MCHC 34.3 RDW 13.9 Plt Count 97 L MPV 9.2 Prelim Diff (Auto) Executive Staff Assistant Neut % (Auto) 69.5 Lymph % (Auto) 6.6 L Cass % (Auto) 11.8 H Eos % (Auto) 10.4 H Baso % (Auto) 1.7 Neut # (Auto) 2.0 Lymph # (Auto) 0.2 L Cass # (Auto) 0.3 Eos # (Auto) 0.3 Baso # (Auto) 0.1 WBC Differential . Differential Comment Auto diff final Sodium 136 Potassium 5.1 Chloride 103 Carbon Dioxide 23.8 Anion Gap 9 BUN 112 H Creatinine 4.65 H Estimated GFR 12 L POC Glucose 153 H Random Glucose 137 H Calcium 8.4 L 09/18/18 09/17/18 09/17/18 09:16 22:15 19:38 WBC RBC Hgb Hct MCV MCH MCHC RDW Plt Count MPV Prelim Diff (Auto) Neut % (Auto) Lymph % (Auto) Cass % (Auto) Eos % (Auto) Baso % (Auto) Neut # (Auto) Lymph # (Auto) Cass # (Auto) Eos # (Auto) Baso # (Auto) WBC Differential Differential Comment Sodium Potassium 5.6 H Chloride Carbon Dioxide Anion Gap BUN Creatinine Estimated GFR POC Glucose 137 H 133 H Random Glucose Calcium Impressions ITS Impressions Chest X-Ray 09/16/18 15:46 CONCLUSION: No acute infiltrate or effusion. Abdomen/Bladder Ultrasound 09/17/18 00:00 CONCLUSION: 1. Right renal cyst. 2. Ascites. Paracentesis Ultrasound 09/17/18 00:00 CONCLUSION: 1. Uncomplicated paracentesis. Discharge Plan Discharge Disposition Patient Disposition: Discharge Home Discharge Condition Condition: Stable Discharge Order Discharge Orders: Discharge Order (Routine); Ordered 09/18/18 Ordered By: Mahamed Grajeda Discharge Details Anticipated Discharge Date: 09/18/18 Physicians Team Primary Care Provider: UNKNOWN, Attending Provider: Mahamed Grajeda Other Providers: Keith Parrish ; Darin Webster Rxs /Orders / Referrals /Forms Prescriptions: Continue furosemide 40 mg Tablet 40 mg PO BID RF: 0 metolazone 2.5 mg Tablet 2.5 mg PO Q OTHER DAY RF: 0 atorvastatin 40 mg Tablet 40 mg PO DAILY RF: 0 tamsulosin 0.4 mg Capsule,Extended Release 24hr 0.4 mg PO DAILY RF: 0 folic acid 1 mg Tablet 1 mg PO DAILY RF: 0 magnesium 250 mg Tablet 500 mg PO DAILY RF: 0 pyridoxine (vitamin B6) [Vitamin B-6] 100 mg Tablet 100 mg PO DAILY RF: 0 metoprolol succinate [Toprol XL] 25 mg Tablet Extended Release 24 Hr 12.5 mg PO BID RF: 0 finasteride 5 mg Tablet 5 mg PO DAILY RF: 0 loratadine [Claritin] 10 mg Tablet 10 mg PO DAILY RF: 0 coenzyme Q10 [Co Q-10] 100 mg Capsule 100 mg PO DAILY RF: 0 insulin detemir U-100 [Levemir U-100 Insulin] 100 unit/mL Solution 8 unit SUB-Q QPM RF: 0 cholecalciferol (vitamin D3) [Vitamin D3] 1,000 unit Tablet 1,000 unit PO DAILY RF: 0 ferrous gluconate 236 mg (27 mg iron) Tablet 2 mg/kg PO TID RF: 0 Discontinued lisinopril 10 mg Tablet 10 mg PO DAILY RF: 0 No Action spironolactone 25 mg Tablet 25 mg PO DAILY RF: 0 Referrals: UNKNOWN, [Primary Care Provider] - See Instructions Status ED Status: Left Department
[2018-09-18 20:29] VITALS: RESP 18
[2018-09-19] MEDS: Sodium Bicarbonate 8.4% Inj 75 MEQ in Dextrose 5%/NaCl 0.45% Inj 1,000 ML IV.CONT SCH (00:31)
[2018-09-19] MEDS: Insulin NovoLOG Aspart Correctional Sugar Inj SQ SCH (08:13)
[2018-09-19 08:18] VITALS: BP 92/58; PULSE 70; TEMP 98; O2SAT 99
[2018-09-19 08:18] LABS: Baso # (Auto) 0.1 th/mm3 (0.0-0.2); Baso % (Auto) 2.1 % (0.0-2.0); Eos # (Auto) 0.2 th/mm3 (0.0-0.4); Eos % (Auto) 7.2 % (0.0-4.0); Hematocrit 28.6 % (39.0-51.0); Hemoglobin 9.8 gm/dL (13.0-17.0); Lymph # (Auto) 0.2 th/mm3 (1.0-4.8); Lymph % (Auto) 7.9 % (9.0-44.0); Mean Corpuscular HGB Conc 34.4 % (32.0-36.0); Mean Corpuscular Hemoglobin 33.8 pg (27.0-34.0); Mean Corpuscular Volume 98.2 fL (80.0-100.0); Mono # (Auto) 0.3 th/mm3 (0.0-0.9); Mono % (Auto) 10.2 % (0.0-8.0); Neut % (Auto) 72.6 % (16.0-70.0); Platelet Count 99 th/mm3 (150-450); Red Blood Count 2.92 mil/mm3 (4.50-5.90); Red Cell Distribution Width 14.1 % (11.6-17.2); White Blood Count 2.8 th/mm3 (4.0-11.0)
[2018-09-19] MEDS: Finasteride 5 MG Tablet PO SCH (08:28)
[2018-09-19] MEDS: Furosemide 40 MG Tablet PO SCH (08:28)
[2018-09-19] MEDS: Ferrous Sulfate 325 MG Tablet PO SCH (08:28)
[2018-09-19] MEDS: Folic Acid 1 MG Tablet PO SCH (08:28)
[2018-09-19] MEDS: Hydrocortisone 1% Lotion 120 ML Bottle TOPICAL SCH (08:32)
[2018-09-19 10:26] LABS: Alanine Aminotransferase 30 U/L (12-78); Albumin 3.3 g/dL (3.4-5.0); Anion Gap 12 meq/L (5-15); Aspartate Aminotransferase 37 U/L (15-37); Blood Urea Nitrogen 108 mg/dL (7-18); Calcium 8.3 mg/dL (8.5-10.1); Carbon Dioxide 21.5 meq/L (21.0-32.0); Chloride 103 meq/L (98-107); Glomerular Filtration Rate 13 mL/min (>89); Glucose,Random 96 mg/dL (74-106); Potassium 4.7 meq/L (3.5-5.1); Sodium 136 meq/L (136-145)
[2018-09-19 10:29] LABS: Alkaline Phosphatase 204 U/L (45-117); Total Protein 7.2 g/dL (6.4-8.2)
[2018-09-19 11:02] LABS: Platelet Morphology Normal (Normal)
== END 2018-09-19 08:46 | disposition home or self-care (01) | DRG 683 ==
LOC: NEPE 14:29 → NEDA 17:51 → NEDH 22:10 → NEDA 09-17 11:38 → N05 09-17 15:57
PROVIDERS: ADMIT Hospitalist; ATTEND Hospitalist
DX: Z86.73 Personal history of transient ischemic attack (TIA), and cerebral infarction without residual deficits; K74.60 Unspecified cirrhosis of liver; Z95.4 Presence of other heart-valve replacement; E87.5 Hyperkalemia; Z87.891 Personal history of nicotine dependence; N18.4 Chronic kidney disease, stage 4 (severe); L29.8 Other pruritus; J44.9 Chronic obstructive pulmonary disease, unspecified; Z85.828 Personal history of other malignant neoplasm of skin; R18.8 Other ascites; Z79.4 Long term (current) use of insulin; I12.9 Hypertensive chronic kidney disease with stage 1 through stage 4 chronic kidney disease, or unspecified chronic kidney disease; D63.1 Anemia in chronic kidney disease; Z85.89 Personal history of malignant neoplasm of other organs and systems; Z95.0 Presence of cardiac pacemaker; E11.22 Type 2 diabetes mellitus with diabetic chronic kidney disease; Z86.010 Personal history of colon polyps; K21.9 Gastro-esophageal reflux disease without esophagitis; N40.0 Benign prostatic hyperplasia without lower urinary tract symptoms; N17.9 Acute kidney failure, unspecified; I48.91 Unspecified atrial fibrillation
CPT/HCPCS: 49083; 71010; 71045; 76775; 80048; 80053; 82948; 82962; 83735; 84100; 84132; 85025; 85610; 90774; 90775; 90784; 93005; 96374; 96375; 97161; 99285; C1729; C8952; J1200; J1644; J1815; J1940; P9047